=== PATIENT | female | born 1990 | race Caucasian/White ===

== ENCOUNTER 2017-08-11 17:02 | Emergency (ER) | payer MEDICAID, SELFPAY ==
[2017-08-11 17:02] VITALS: BP 149/86; PULSE 92; RESP 16; TEMP 37.4; O2SAT 98; BMI 36.7
--- NOTE | 2017-08-11 17:39 | US_ITS ---
STUDY: FIRST TRIMESTER OBSTETRICAL ULTRASOUND REASON FOR EXAM: Female, 27 years old. BLEEDING AT 7 WEEKS LMP: TECHNIQUE: Transvaginal PRIOR ULTRASOUND: None. FINDINGS: There is visualization of a single gestational sac in a normal intrauterine position. The mean sac diameter (MSD) measures 27mm , indicating an estimated gestational age (EGA) of 8 weeks, 0 days. The gestational sac shape is within normal limits. There is a visualized yolk sac. The yolk sac measures 3.7mm. The placenta is non-visualized. There is visualization of a live embryo. The crown-rump length (CRL) measures 9.2mm, indicating an estimated gestational age (EGA) of 7 weeks, 0 days. There is demonstrated cardiac activity with a heart rate of 136 bpm. The estimated gestation age (EGA) by LMP is 7 weeks, 0 days. The estimated date of delivery (LEIDY) by LMP is 10.2.18. The estimated gestation age (EGA) by US is 7 weeks, 4 days. The estimated date of delivery (LEIDY) by US is 9.28.18. The uterus measures 10.9x7x5.3. There is no demonstrated uterine fibroid. The cervix is closed. 7 x 4 mm cystic region in the uterus may be a myometrial cyst. The right ovary measures 4 x 3.1 x 2.3 cm. Corpus luteum cyst visualized measuring 26 x 21 mm. There is no visualized right adnexal mass or complex lesion. The left ovary measures 2.8 x 1.7 x 1.1. There is no left ovarian cyst. There is no visualized left adnexal mass or complex lesion. There is minimal fluid in the cul de sac. US/Transvaginal w/Preg US IMPRESSION: There is minimal fluid in the cul de sac. There is a single live intrauterine with a heart rate of 136 bpm. The estimated gestation age (EGA) by US is 7 weeks, 4 days. The estimated date of delivery (LEIDY) by US is 9.28.18. Electronically Signed: Dustin Siegel MD at 19:14 EST , Service support ,
--- NOTE | 2017-08-11 17:42 | ED.DCSUM_ITS ---
- ER Visit Summary Date of Service: 08/11/17 Chief Complaint: Vaginal bleeding and History of Present Illness: The patient is a 27 F presenting with vaginal bleeding. She states she is 7 weeks by dates. She is . She started having vaginal bleeding this afternoon. She states it has since slowed down. It was less than a normal period. Denies abdominal pain or other complaints. Physical Examination: Vitals are stable. Patient is afebrile. Alert no acute distress. HEENT exam is unremarkable. Neck is supple. Lungs are clear and equal bilaterally. Heart is regular rate and rhythm. Abdomen is soft nontender nondistended. Extremities are unremarkable. Skin is warm and dry. Remainder of exam is unremarkable. Emergency Department Course and Treatment: [place] [address]. Blood type A negative. She was given RhoGam IM. Ultrasound shows single live IUP 7 weeks 4 days with heart tones 136. She is resting comfortably in the emergency department. Advised to follow-up with Dr. Diaz her TRANSPORTATION SERVICES REPRESENTATIVE. Advised to return to ED for worsening complaints. Disposition: Discharge home Impression: Vaginal bleeding in This note was generated with [employer] dictation software. It may contain incorrect words, spelling, and punctuation that were not noted in review of the chart prior to signing ED Disposition - Plan for ED Patient: Chief Complaint: Vag Bld, Preg Referrals: Milton Collado MD [Primary Care Provider] -
[2017-08-11 19:46] VITALS: BP 143/78; PULSE 90; RESP 18; O2SAT 100
--- NOTE | 2017-08-11 19:52 | ED.DEP ---
ED Disposition - Plan for ED Patient: Chief Complaint: Vag Bld, Preg Instructions: ED Miscarriage Poss Referrals: Milton Collado MD [Primary Care Provider] - Trev Diaz MD [STAFF PHYSICIAN] -
--- NOTE | 2017-08-11 20:06 | ED.RN ---
Rhogam given documented in mar not tar. tar unable to scan product number
[2017-08-11 20:18] VITALS: PULSE 81; O2SAT 100
== END 2017-08-11 20:24 | disposition home or self-care (01) ==
PROVIDERS: Emergency Provider Emergency Medicine; Family Provider Family Medicine; PCP Family Medicine
DX: O20.9 Hemorrhage in early pregnancy, unspecified (principal); Z3A.01 Less than 8 weeks gestation of pregnancy
CPT/HCPCS: 76817; 84702; 86900; 86901; 90384; 96372; 99284; A4216; J2790

== ENCOUNTER → 2017-08-19 18:50 | Outpatient (CLI) | payer MEDICAID, SELFPAY ==
[2017-08-19 22:58] LABS: Chlamydia Trachomatis by PCR Negative (Negative); Neisserai gonorrhoeae by PCR Negative (Negative); Probe Check PASS; Sample Adequacy Control PASS; Specimen Processing Control PASS
[2017-08-24 13:58] LABS: HPV Reflexed? NOT INDICATED
== END ==
PROVIDERS: Family Provider Family Medicine; PCP Family Medicine; Visit Provider Obstetrics & Gynecology
DX: Z12.4 Encounter for screening for malignant neoplasm of cervix (principal); Z11.3 Encounter for screening for infections with a predominantly sexual mode of transmission; Z32.01 Encounter for pregnancy test, result positive
CPT/HCPCS: 87491; 87591; 88175; G0145

== ENCOUNTER → 2017-09-07 11:23 | Outpatient (CLI) | payer MEDICAID, SELFPAY ==
[2017-09-07 14:16] LABS: Color, Urine Yellow (Yellow); Glucose, Dipstick Normal (Normal); Ketone-Dipstick Negative (Negative); Leukocyte Esterase-Dipstick 25 /ul (Negative); Nitrite-Dipstick Negative (Negative); Occult Blood-Urine 25 /ul (Negative); Protein-Dipstick Negative (Negative); Urine Bilirubin Dipstick Negative (Negative); Urine Clarity Sl. Cloudy (Clear); Urine Urobilinogen Normal (Normal)
[2017-09-07 14:17] LABS: Absolute Lymphocyte Count 1.78 X10^3/ul (0.83-4.51); Absolute Neutrophil Count 4.4 X10^3/uL (2.0-7.7); Basophil# 0.03 X10^3/uL; Basophil% 0.5 % (0-1); Eosinophils% 1.5 % (0-5); Hematocrit 40.8 % (37-47); Lymphocyte # 1.78 X10^3/ul (4.0); Lymphocyte % 26.7 % (19-41); Mean Corp Hgb Conc 34.3 g/gl (32-36); Mean Corpuscular Hgb 31.7 pg (27.0-32.0); Mean Corpuscular Volume 92.3 fL (81-99); Monocyte# 0.32 X10^3/uL; Monocyte% 4.8 % (0-10); Neutrophil # 4.42 X10^3/uL (2.7-7.7); Neutrophil % 66.3 % (47-70); POSITIVE COUNT NO; POSITIVE DIFFERENTIAL NO; POSITIVE MORPHOLOGY NO; Platelet Count 269 K/mm3 (150-450); RBC Distribution Width CV 12.1 % (11.6-14.6); RBC Distribution Width SD 41.2 fl (35.1-43.9); Red Blood Count 4.42 M/mm3 (4.2-5.4); White Blood Count 6.7 K/mm3 (4.4-11.0)
[2017-09-07 14:32] LABS: COTININE Drug Screen Negative (<200 ng/mL); Thyroid Stim Hormone (TSH) 1.17 uIU/mL (0.358-3.74)
[2017-09-07 14:37] LABS: Amphetamine Urine VISTA NEGATIVE (<1000 ng/mL); Barbiturate Urine VISTA NEGATIVE (< 200 ng/mL); Benzodiazepine Urine VISTA NEGATIVE (< 200 ng/mL); Cocaine Urine VISTA NEGATIVE (< 300 ng/mL); Ecstacy Urine VISTA NEGATIVE (< 500 ng/mL); Methadone Urine VISTA NEGATIVE (< 300 ng/mL); PCP Urine VISTA NEGATIVE (< 25 ng/mL); THC Urine VISTA NEGATIVE (< 50 ng/mL); Vista UDS pH Range 6
[2017-09-07 15:15] LABS: HIV - WCH Non-Reactive (Nonreactive); Rubella IgG > 500.0 IU/mL
[2017-09-09 11:22] LABS: HEPATITIS B SURFACE AG Negative (Negative); Hep C Antibodies <0.1 s/co ratio (0.0-0.9); Toxoplasma Gondii IgG < 3.0 IU/mL (0.0-7.1)
[2017-09-09 11:27] LABS: Toxoplasma Gondii IgM < 3.0 AU/mL (0.0-7.9)
[2017-09-11 02:58] LABS: Prenatal RPR NONREACTIVE (NONREACTIVE)
== END ==
PROVIDERS: Visit Provider Obstetrics & Gynecology
DX: Z34.81 Encounter for supervision of other normal pregnancy, first trimester (principal)
CPT/HCPCS: 36415; 80307; 81002; 84443; 85025; 86703; 86762; 86777; 86778; 86803; 86850; 87340

== ENCOUNTER → 2017-10-20 09:54 | Outpatient (CLI) | payer MEDICAID, SELFPAY | PROVIDERS: Family Provider Family Medicine; PCP Family Medicine; Visit Provider Obstetrics & Gynecology | DX: O99.412 Diseases of the circulatory system complicating pregnancy, second trimester (principal); I49.9 Cardiac arrhythmia, unspecified; R00.0 Tachycardia, unspecified; O99.89 Other specified diseases and conditions complicating pregnancy, childbirth and the puerperium; R42 Dizziness and giddiness; Z3A.00 Weeks of gestation of pregnancy not specified | CPT/HCPCS: 93225; 93226 ==

== ENCOUNTER 2017-11-03 03:19 | Outpatient (CLI) | payer MEDICAID, SELFPAY ==
[2017-11-03 03:47] LABS: ROM Internal Control Test YES-OK TO RESULT pt. (Internal QC)
[2017-11-03 03:48] LABS: ROM Patient Test POSITIVE (Negative)
[2017-11-03 04:06] VITALS: BMI 37.8
--- NOTE | 2017-11-03 04:31 | OB.TRI.HP_ITS ---
History of Present Illness Date of Service: 11/03/17 Was patient seen by the physician?: Yes Reason For Visit: R/O LABOR Date of Service: 11/03/17 Final LEIDY: 03/30/18 Final LEIDY Source: US <20 weeks Gestational age: 19 Weeks and 0 Days History of Present Illness: 27 yo female at 19 wk EGA presents with gush of fluid in night time, and then voided. She had to get up again due to wet spot in bed, sheets soaked. Here for evaluation of possible SROM. Reports bleeding and spotting off and on since first trimester. Rh Neg and RhoGAM given approx 10/20/17 in ofc. Denies any s/sx of illness, but notes feeling dizzy off and on. Also with some nasal congestion last night. No abdominal pain. Lottie with prior term delivery. Home Medications Medication Instructions Recorded Vits [Prenatabs FA ] 1 tablet PO DAILY #30 tablet 06/16/15 Allergies No Known Allergies Allergy (Verified 11/03/17 04:08) Physical Exam General: Alert, Oriented x3, Cooperative - tearful Abdomen: Soft, Gravid - NT. Bedside SONO: Viable IUP, active FM. Largest pocket of fluid 6.4 cm Breech. Extremities:: No clubbing, No cyanosis, No edema Presentation: Breech - no cervical exam performed. NST - FHR Rate Baby A Baseline: FHT 140s NST Reactive:: Appropriate for gestational age Impression/Plan 19 wk SPPROM + ROM by ROM plus test. Grossly ruptured on exam, pink tinged fluid noted. MARIANA largest pocket 6.4 cm Active, viable fetus Reviewed findings with patient and significant other. Extremely poor prognosis d /t ROM at 19 wks. Previable fetus without lung development and size needed for survival. All questions (at this time) answered to couple's satisfaction. Some fluid noted on sono. Advised pt: bedrest, pelvic rest. F/U sono in ofc. Refer to M for second opinion, evaluation. Consider antibiotics to extend latency / prevent infection d/t SROM. No betamethasone at this point as previable and may steroids given may increase risk of infection Advised of potential outcomes, including: demise, uterine infection leading to labor. Advised also that fluid may reaccumulate if bag of valdovinos able to seal itself off to allow reaccumulation of fluid which would then allow for lung development and movement of fetus. CBC Home to rest RTO for OB sono and f/u on MARIANA. MFM appt TBA through ofc.
[2017-11-03 05:14] LABS: Absolute Lymphocyte Count 2.03 X10^3/ul (0.83-4.51); Absolute Neutrophil Count 6.6 X10^3/uL (2.0-7.7); Basophil# 0.02 X10^3/uL; Basophil% 0.2 % (0-1); Eosinophil# 0.14 X10^3/uL; Eosinophils% 1.5 % (0-5); Hematocrit 36.9 % (37-47); Hemoglobin 13.1 g/dl (12.0-15.0); Lymphocyte # 2.03 X10^3/ul (4.0); Lymphocyte % 21.5 % (19-41); Mean Corp Hgb Conc 35.5 g/gl (32-36); Mean Corpuscular Hgb 32.4 pg (27.0-32.0); Mean Corpuscular Volume 91.3 fL (81-99); Mean Platelet Vol. 10.3 fl (6.2-12.0); Monocyte# 0.59 X10^3/uL; Monocyte% 6.3 % (0-10); Neutrophil # 6.63 X10^3/uL (2.7-7.7); Neutrophil % 70.3 % (47-70); Platelet Count 240 K/mm3 (150-450); RBC Distribution Width CV 12.4 % (11.6-14.6); RBC Distribution Width SD 40.9 fl (35.1-43.9); Red Blood Count 4.04 M/mm3 (4.2-5.4); White Blood Count 9.4 K/mm3 (4.4-11.0)
[2017-11-03 05:23] LABS: POSITIVE COUNT NO; POSITIVE DIFFERENTIAL NO; POSITIVE MORPHOLOGY NO
== END 2017-11-03 04:48 | disposition home or self-care (01) ==
LOC: WPOUT 03:20 → WP 03:20
PROVIDERS: Family Provider Family Medicine; PCP Family Medicine; Visit Provider Obstetrics & Gynecology
DX: O42.912 Preterm premature rupture of membranes, unspecified as to length of time between rupture and onset of labor, second trimester (principal); Z3A.19 19 weeks gestation of pregnancy
CPT/HCPCS: 36415; 59050; 76815; 84112; 85025; 99218; G0378

== ENCOUNTER 2021-04-11 09:50 | Emergency (ER) | payer MEDICAID, SELFPAY ==
[2021-04-11 09:51] VITALS: BP 162/85; PULSE 84; RESP 14; TEMP 37.2; O2SAT 100; BMI 43.8
--- NOTE | 2021-04-11 10:06 | EDS_ITS ---
HPI History of Present Illness Chief Complaint: Allergic Reaction Narrative Narrative: Patient presents complaining of allergic reaction is started last night after she had been exposed to some insects that had bit her skin it started with hives she went to sleep she woke up today and felt that her face was swollen she called EMS they arrived she was given subcu epinephrine brought to the emergency department indications had no breathing problems no fever no cough no chest pain no other exposures no new medications she is feeling at baseline now PFSH PFS Medical History no medical history Home Medications minocycline 100 mg PO DAILY 04/11/21 [History Last Taken Unknown] spironolactone 100 mg PO DAILY 04/11/21 [History Last Taken Unknown] Allergy/AdvReac Type Severity Reaction Status Date / Time No Known Allergies Allergy Verified 04/11/21 09:59 Surgical History no surgical history Social History Smoking Status: Never smoker ROS ROS ED ROS Narrative Again she complained of some sense that her face was swollen no breathing issues review of systems otherwise negative no systemic findings or signs Constitutional Constitutional ED: Reports subjective, sweats and other; Denies chills, fever(s) or weight loss Eyes Eyes: Denies blurry vision or change in vision ENT ENT ED: Denies ear pain Cardiovascular Cardiovascular: Denies chest pain or palpitations Respiratory/Chest Respiratory/Chest: Denies dyspnea Gastrointestinal Gastrointestinal: Denies abdominal pain, nausea or vomiting Genitourinary Genitourinary ED: Denies dysuria or hematuria Musculoskeletal Musculoskeletal: Denies arthralgias or myalgias Integumentary Reports rash; Denies abscess Neurologic Neurologic: Denies weakness Psychiatric Psychiatric: Denies anxiety or depression Endocrine Endocrinology: Denies polydipsia or polyuria Allergic/Immunologic Allergic/Immunologic ED: Denies urticaria EXAM Physical Exam Const Vital Signs: 04/11/21 09:51 Temperature 98.9 F Temperature Source Oral Pulse Rate 84 Respiratory Rate 14 Blood Pressure 162/85 H Blood Pressure Mean 110 Pulse Ox 100 Oxygen Delivery Method Room Air Positive well developed General Appearance ED: well developed HEENT Reports normocephalic Negative for trauma Eyes EOMs intact bilaterally Neck supple Chest Wall inspection of chest normal Resp normal respiratory effort Cardio regular rate GI non-tender and non-distended Back/Spine Back/Spine Narrative: unremarkable Extremity normal to inspection Neuro oriented x3 and CN's II-XII intact bilaterally Sensorium / Orientation: alert Psych mental status grossly normal Skin no rashes or lesions noted MDM MDM MDM Narrative Medical decision making narrative: Patient's vital signs are unremarkable resting company bed HEENT no nose mucous membranes lungs clear some very minimal scattered hives to the back the skin is otherwise unremarkable given all the above given the therapy she has had her improvement will observe her in the emergency department she will be treated with IV Decadron and she has an IV s hould be given Kenalog 40 mg IM is a long-acting steroid she has been given multiple doses of Benadryl she will continue to use antihistamines every 6 hours follow-up with outpatient providers return for change in symptoms Patient is remained asymptomatic during the observation. She is comfortable with discharge home Discharge Plan Triage Chief Complaint: Allergic Reaction ED Provider: Jos eLuis Perez Dx/Rx/DC Orders Clinical Impression: Allergic Instructions: ED General Allergic Reactions Prescriptions: No Action minocycline 100 mg capsule 100 mg PO DAILY RF: 0 spironolactone 100 mg tablet 100 mg PO DAILY RF: 0 Primary Care Provider: Milton Collado Referrals: Milton Collado MD [Primary Care Provider] - Activity Restrictions/Additional Instructions: Follow-up with your doctors return for change in symptoms take an antihistamine every 6 hours
[2021-04-11] MEDS: dexAMETHasone 10 MG/ML Vial IV (10:28)
[2021-04-11] MEDS: Triamcinolone Acetonide 40 MG/ML Vial IM (10:28)
[2021-04-11 11:28] VITALS: BP 134/81; PULSE 85; RESP 16; O2SAT 100
== END 2021-04-11 11:29 | disposition home or self-care (01) ==
PROVIDERS: Emergency Provider Emergency Medicine; PCP Family Medicine
DX: T78.40XA Allergy, unspecified, initial encounter (principal); Z79.899 Other long term (current) drug therapy
CPT/HCPCS: 96372; 96374; 99284; J7030; A4216

== ENCOUNTER 2021-04-12 17:49 | Emergency (ER) | payer MEDICAID, SELFPAY ==
[2021-04-12 17:50] VITALS: BP 144/92; PULSE 101; RESP 16; TEMP 36.6; O2SAT 99
[2021-04-12 17:51] VITALS: BP 144/92; PULSE 101; RESP 18; TEMP 36.6; O2SAT 99; BMI 42.9
--- NOTE | 2021-04-12 18:17 | EDS_ITS ---
HPI History of Present Illness Chief Complaint: Allergic Reaction Detail of Chief Complaint: Allergic reaction Informant: patient Narrative Narrative: Patient presents to the emergency department with concern for an allergic reaction to medications that she started 3 weeks ago. Patient was started on minocycline and spironolactone for acne. Patient states that 3 days ago she started having an itchy rash with lip swelling. Patient presented to the emergency department via EMS yesterday and was medicated with steroids and Benadryl and did receive epinephrine in route to the hospital by squad. Patient states that she was told that the physician in the ER did not believe the reaction was related to the antibiotic that she has started recently because it had been 3 weeks. Patient started taking the spironolactone and the antibiotic again today and about an hour later developed worsening itchy rash and lip swelling. Patient denies any new soaps or detergents. She is never had issues like this before. Patient denies recent illness. Prior similar symptoms: No PFSH PFS Medical History (Updated 04/12/21 @ 20:[address] Sascha Damon, ) delivery delivered Home Medications minocycline 100 mg PO DAILY 04/11/21 [History Last Taken Unknown] spironolactone 100 mg PO DAILY 04/11/21 [History Last Taken Unknown] prednisone 20 mg PO BID #6 tab 04/12/21 [Rx Last Taken Unknown] Allergy/AdvReac Type Severity Reaction Status Date / Time No Known Allergies Allergy Verified 04/12/21 18:40 Social History Smoking Status: Never smoker [facility] ED Constitutional Constitutional ED: Reports systems reviewed and no addt'l complaints, except as documented; Denies body ache(s), change in weight or chills Eyes Eyes: Denies acute decrease in peripheral vision, change in vision, double vision or loss of vision ENT ENT ED: Reports none; Denies ear pain, lip swelling, loss taste/smell, neck pain, otalgia or sore throat Cardiovascular Cardiovascular: Reports none; Denies abdominal pain, chest pain with activity, leg edema, lightheadedness, palpitations, rapid heart rate or syncope Respiratory/Chest Respiratory/Chest: Reports none; Denies change in mental status, dry cough, dyspnea, hemoptysis, shortness of breath at rest or shortness of breath with exertion Gastrointestinal Gastrointestinal: Reports none; Denies abdominal pain, change in stool character, diarrhea, hematemesis, hematochezia, melena, rectal bleeding or vomiting Genitourinary Genitourinary ED: Reports none; Denies abdominal discomfort, anuria, dysuria, genital pain or polyuria Musculoskeletal Musculoskeletal: Reports none; Denies arthralgias, back pain, difficulty walking, extremity pain, muscle weakness or myalgias Integumentary Reports none and rash; Denies abscess Neurologic Neurologic: Reports none; Denies abnormal gait, confusion, focal weakness, frequent falls, headache(s), loss of vision, numbness, paresthesias, radicular pain, vertigo or weakness Psychiatric Psychiatric: Reports systems reviewed and no addt'l complaints, except as documented and none; Denies behavioral changes, confusion, difficulty concentrating, hallucinations, suicidal ideation, tactile hallucinations or visual hallucinations Endocrine Endocrinology: Denies none, cold intolerance, excessive sweating, fatigue or heat intolerance Hematologic/Lymphatic Hematologic/Lymphatic: Reports none; Denies anemia, easy bleeding or easy bruising Allergic/Immunologic Allergic/Immunologic ED: Denies as per HPI, none, lip swelling, mouth swelling, throat swelling, tongue swelling or hives EXAM Physical Exam Const Vital Signs: 04/12/21 17:50 04/12/21 17:51 04/12/21 19:03 Temperature 97.9 F 97.9 F Temperature Source Temporal Temporal Pulse Rate 101 H 101 H 90 Respiratory Rate 16 18 14 Blood Pressure 144/92 H 144/92 H Blood Pressure Mean 109 109 Pulse Ox 99 99 99 Oxygen Delivery Method Room Air Room Air Room Air 04/12/21 20:09 Temperature Temperature Source Pulse Rate 75 Respiratory Rate 15 Blood Pressure Blood Pressure Mean Pulse Ox 98 Oxygen Delivery Method Room Air Positive well nourished and well developed General Appearance ED: well developed and NAD HEENT Reports TM's clear and moist mucous membranes HEENT Narrative: No angioedema of the tongue or lips noted. normocephalic and atraumatic; Negative for trauma or tenderness Tympanic Membrane ED: Yes TM's clear Eyes PERRL and EOMs intact bilaterally General Eye ED: Negative for pale conjunctiva or scleral icterus Neck no lymphadenopathy, supple and no JVD General: Negative for tenderness Chest Wall inspection of chest normal and palpation of chest normal Chest: Negative for tenderness Resp normal respiratory effort and clear to auscultation bilaterally Effort and Inspection: Negative for respiratory distress or pain with movement Auscultation: Negative for rhonchi, wheezes or diminished lung sounds Cardio regular rate, regular rhythm, S1 normal heart sound, S2 normal heart sound and no murmurs Peripheral Pulses: pulses 2+ throughout GI normal to inspection, nondistended, normoactive bowel sounds, soft to palpation, non-tender, non-distended and no masses Back/Spine no CVA tenderness and no thoracic nor lumbar tenderness Extremity normal to inspection General Extremety ED: Negative for edema General Extremity: Negative for edema Neuro oriented x3, CN's II-XII intact bilaterally, no sensory deficits noted and gait normal Sensorium / Orientation: awake, alert, oriented to person, oriented to place and oriented to time Motor Exam: strength 5/5 throughout and strength abnormal Psych mental status grossly normal Skin no wounds Skin Narrative: Patient has diffuse urticaria involving the trunk as well as the extremities and the face and right lower lip. MDM MDM MDM Narrative Medical decision making narrative: IV line established on arrival. Patient was medicated with Solu-Medrol, Benadryl, and Pepcid. Patient was observed in the department for almost 3 hours and she had improvement in the urticaria. She had no angioedema. She feels well otherwise. Patient will be given a prescription for prednisone for 3 more days. At this point she will be advised to discontinue the minocycline and the spironolactone. Patient follow-up with her electronic parts designer. She is advised to return if worsening lip or tongue swelling, shortness of breath, or condition should worsen anyway. Lab Data Attestation: I reviewed the patient's lab results. Discharge Plan Triage Chief Complaint: Allergic Reaction ED Provider: Sascha Damon Dx/Rx/DC Orders Clinical Impression: Urticaria, Allergic reaction Instructions: ED ADVERSE DRUG REACTION Allergic, ED Hives (Adult) Prescriptions: New prednisone 20 mg tablet 20 mg PO BID Qty: 6 RF: 0 No Action minocycline 100 mg capsule 100 mg PO DAILY RF: 0 spironolactone 100 mg tablet 100 mg PO DAILY RF: 0 Primary Care Provider: Milton Collado Referrals: Milton Collado MD [Primary Care Provider] - Activity Restrictions/Additional Instructions: Discontinue your minocycline as well as spironolactone and follow-up with your electronic parts designer Disposition Disposition: Home, Self Care
[2021-04-12] MEDS: MethylPREDNISolone 125 MG/2 ML Vial IV (18:39)
[2021-04-12] MEDS: DiphenhydrAMINE 50 MG/ML Syringe IV (18:39)
[2021-04-12 19:03] VITALS: PULSE 90; RESP 14; O2SAT 99
[2021-04-12] MEDS: Famotidine 200 MG/20 ML MDV 20 MG in 0.9% Normal Saline (Pres. free 8 ML 300 MG IV (19:05)
[2021-04-12 20:09] VITALS: PULSE 75; RESP 15; O2SAT 98
== END 2021-04-12 21:18 | disposition home or self-care (01) ==
PROVIDERS: Emergency Provider Emergency Medicine; PCP Family Medicine
DX: L50.0 Allergic urticaria (principal); Z79.52 Long term (current) use of systemic steroids
CPT/HCPCS: 96374; 96375; 99285; A4216; J3490

== ENCOUNTER → 2023-02-27 | Outpatient (CLI) | payer MEDICAID, SELFPAY ==
[2023-02-27 15:06] LABS: Hematocrit 43.4 % (37-47); Mean Corp Hgb Conc 34.6 g/dL (32-36); Mean Corpuscular Hgb 31.9 pg (27.0-32.0); Mean Corpuscular Volume 92.3 fL (81-99); Mean Platelet Vol. 10.3 fl (6.2-12.0); Platelet Count 310 K/mm3 (150-450); RBC Distribution Width CV 11.3 % (11.6-14.6); RBC Distribution Width SD 38.7 fl (35.1-43.9); White Blood Count 7.7 K/mm3 (4.4-11.0)
[2023-02-27 15:56] LABS: AST(SGOT) 17 U/L (15-37); Alanine Aminotransfer ALT/SGPT 24 U/L (13-56); Albumin, Serum 3.7 g/dL (3.2-5.0); Alkaline Phosphatase 78 U/L (45-117); Anion Gap 8 (5-15); BUN 16 mg/dL (7-18); BUN/Creat Ratio 14.2 RATIO (10-20); Calcium,Total 8.9 mg/dL (8.5-10.1); Chloride 105 mmol/L (98-107); Creatinine, Serum 1.13 mg/dL (0.55-1.02); EST Glomerular Filtration Rate 59 mL/min (>60); Est Glom Filt Rate - Afr Amer 71 mL/min (>60); Globulin 3.7 g/dL (2.2-4.2); Glucose 101 mg/dL (74-106); Potassium 4.1 mmol/L (3.5-5.1); Protein, Total 7.4 g/dL (6.4-8.2); Sodium Level 136 mmol/L (136-145); Thyroid Stim Hormone (TSH) 1.32 uIU/mL (0.358-3.74)
[2023-03-03 16:33] LABS: Vitamin B12 243 pg/mL (211-911)
[2023-03-09 14:08] LABS: Vitamin B1, Thiamine 111.8 nmol/L (66.5-200.0)
== END | disposition home or self-care (01) ==
PROVIDERS: PCP Family Medicine; Referring Provider Psychiatry & Neurology Neurology; Visit Provider Psychiatry & Neurology Neurology
DX: G62.9 Polyneuropathy, unspecified (principal)
CPT/HCPCS: 36415; 80053; 82607; 82746; 83883; 84425; 84443; 85027

== ENCOUNTER → 2023-03-12 | Outpatient (CLI) | payer MEDICAID, SELFPAY | END | disposition home or self-care (01) | LOC: SL 13:09 | PROVIDERS: PCP Family Medicine; Referring Provider Psychiatry & Neurology Neurology; Visit Provider Psychiatry & Neurology Neurology | DX: G47.10 Hypersomnia, unspecified (principal) | CPT/HCPCS: 95801; 95806 ==

== ENCOUNTER → 2023-03-27 | Outpatient (CLI) | payer MEDICAID, SELFPAY ==
--- NOTE | 2023-03-27 11:33 | MRI_ITS ---
STUDY: MRI BRAIN WITH AND WITHOUT CONTRAST REASON FOR EXAM: Female, 32 years old. Hx pseudotumor cerebri; headaches; blurred vision TECHNIQUE: Standardized multiplanar fat and water weighted pulse sequences were obtained. IV Yes YES was administered for the contrast portion of the examination. COMPARISON: None. FINDINGS: Normal size of the ventricles and extra-axial spaces for the patient''s age. Solitary white matter lesion in the right parietal lobe without mass effect or restricted diffusion. Normal bilateral basal ganglia. Normal thalami. There is no extra-axial fluid accumulation. Normal flow voids within the major intracranial circulation suggesting patency by spin echo criteria. Normal venous enhancement. There is no enhancing intra-axial or extra-axial abnormality. Mild partial empty sella deformity. Normal, infundibular stalk, optic chiasm and hypothalamus. Normal tectal plate and pineal gland. Normal midbrain, elvia and medulla. Normal cerebellum. Normal basal cisterns. Normal bilateral temporal bones. Normal bilateral internal auditory canals. No demonstrated orbital abnormality, within the constraints of a routine brain study. Mild mucosal thickening of the ethmoid, and maxillary sinuses bilaterally as well as the right sphenoid sinus. Normal calvarium and skull base. Normal visualized soft tissue structures. Normal visualized upper cervical spine. MRI/Brain W/WO Contrast IMPRESSION: Solitary white matter lesion in the right parietal lobe of indeterminate etiology or clinical significance in patient of this age. No significant white matter disease or evidence for acute infarct. Mild partial empty sella deformity of uncertain clinical significance. Other typical findings for pseudotumor cerebri including dilatation of the optic nerve root sheath and flattening of the posterior optic globes are not visualized at this time. Mild bilateral maxillary ethmoid and right sphenoid sinus disease Electronically Signed: Aubrey Clayton MD at 18:12 EDT ,
[2023-03-27 12:03] LABS: CREATININE FINGERSTICK 1.2 mg/dL (0.55-1.02)
== END | disposition home or self-care (01) ==
LOC: MRI 11:14
PROVIDERS: PCP Family Medicine; Referring Provider Psychiatry & Neurology Neurology; Visit Provider Psychiatry & Neurology Neurology
DX: G93.2 Benign intracranial hypertension (principal); H53.8 Other visual disturbances; R51.9 Headache, unspecified
CPT/HCPCS: 70553; A9575

== ENCOUNTER → 2023-06-26 | Outpatient (CLI) | payer MEDICAID, SELFPAY ==
--- OUTSIDE RECORDS SUMMARY | 2023-06-26 12:06 | XMS RPT_ITS | CCD ---
Author Name Unknown Address [address] [place] [address] Organization [facility] Care Team Providers Care Real Time Operator Name Role Phone TRICE KAPOOR Unavailable Unavailable LARISSA, [place]OEN[place] Unavailable Unavailable GENA SMART Unavailable UnaHA Mercado Unavailable Unavailable NO PRIMARY CARE, MD Unavailable Unavailable HA WESTBROOK Unavailable Unavailable JC, MIGNON T Unavailable Unavailable NO PRIMARY CARE, MD Unavailable Unavailable JIMENA, MIGNON L Unavailable Unavailable JIMENA, MIGNON L Unavailable Unavailable NO PRIMARY CARE, MD Unavailable Unavailable JIMENA, MIGNON L Unavailable Unavailable JC, MIGNON T Unavailable Unavailable NO PRIMARY CARE, MD Unavailable Unavailable JC, MIGNON T Unavailable Unavailable JC, MIGNON T Unavailable Unavailable NO PRIMARY CARE, MD Unavailable Unavailable MONIQUE CM Unavailable Unavailable JENNIE, SARITHA Unavailable Unavailable NO PRIMARY CARE, MD Unavailable Unavailable JIMENA, MIGNON L Unavailable Unavailable JIMENA, MIGNON L Unavailable Unavailable NO PRIMARY CARE, MD Unavailable Unavailable JIMENA, MIGNON L Unavailable Unavailable NIURKA BAEZA Unavailable Unavailable NO PRIMARY CARE, Unavailable Unavailable VANNSEA JANEY Unavailable Unavailable JC, MIGNON T Unavailable Unavailable NO PRIMARY CARE, MD Unavailable Unavailable VANNESA JANEY Unavailable Unavailable JC, MIGNON T Unavailable Unavailable NO PRIMARY CARE, MD Unavailable Unavailable JC, MIGNON T Unavailable Unavailable JENNIE, SARITHA Unavailable Unavailable NO PRIMARY CARE, MD Unavailable Unavailable JENNIE, SARITHA Unavailable Unavailable JENNIE, SARITHA Unavailable Unavailable NO PRIMARY CARE, MD Unavailable Unavailable MING BENNETT Unavailable Unavailable NIURKA BAEZA Unavailable Unavailable NO PRIMARY CARE, Unavailable Unavailable JIMENA, MIGNON L Unavailable Unavailable NIURKA BAEZA Unavailable Unavailable NO PRIMARY CARE, Unavailable Unavailable Unavailable Primary Care Provider Unavailabl e Unavailable Primary Care Provider Unavailabl e Kevlla DO, Wilfredo F Primary Care Provider [phone] Petrilla, Wilfredo Primary Care Unavailable Petrilla, Wilfredo Attending Unavailable PROVIDER, UNKNOWN Referring Unavailable PROVIDER, UNKNOWN Referring Unavailable Nelson Brown Attending Unavailable Phoenix Collado Primary Care Unavailable Mignon Morales Attending Unavailable Phoenix Collado Primary Care Unavailable PROVIDER, UNKNOWN Referring Unavailable PROVIDER, UNKNOWN Referring Unavailable Nelson Brown Attending Unavailable Larissa Phoenix Primary Care Unavailable Kevlla DO, Wilfredo F Primary Care Provider Petrilla DO, Wilfredo F Primary Care Provider Petrilla DO, Wilfredo F Primary Care Provider [phone] HOLDENA, WILFREDO Attending Unavailable PETRILLA, WILFREDO Referring Unavailable PETRILLA, WILFREDO Attending Unavailable PETRILLA, WILFREDO Primary Care Unavailable PETRILLA, WILFREDO Attending Unavailable PETRILLA, WILFREDO Referring Unavailable PETRILLA, WILFREDO Primary Care Unavailable PETRILLA, WILFREDO Referring Unavailable PETRILLA, WILFREDO Attending Unavailable PETRILLA, WILFREDO Referring Unavailable PETRILLA, WILFREDO Primary Care Unavailable PETRILLA, WILFREDO Attending Unavailable PETRILLA, WILFREDO Attending Unavailable PETRILLA, WILFREDO Referring Unavailable PETRILLA, WILFREDO Primary Care Unavailable PETRILLA, WILFREDO Attending Unavailable PETRILLA, WILFREDO Referring Unavailable PETRILLA, WILFREDO Primary Care Unavailable PETRILLA, WILFREDO Referring Unavailable PETRILLA, WILFREDO Primary Care Unavailable PETRILLA, WILFREDO Attending Unavailable PETRILLA, WILFREDO Attending Unavailable PETRILLA, WILFREDO Primary Care Unavailable Allergies Allergy Classification Reported Allergen(s) Allergy Type Date of Onset Reaction(s) Facility (17 sources) Minocycline Drug Allergy 05-31-2021 [facility] (17 sources) nickel sulfate Drug Allergy 05-31-2021 [facility] Work Phone: Medications Current Medications Medication Drug Class(es) Dates Sig (Normalized) Sig (Original) adapalene 0.003 mg/mg topical gel (3 sources) Retinoid Start: 01-26-2023 adapalene (Differin) 0.3 % gel [id number] 200 actuat albuterol 0.09 mg/actuat metered dose inhaler (13 sources) beta2-Adrenergic Agonist Start: 04-08-2023 take 2 puff(s) by inhalation every six hours for wheezing albuterol 108 (90 Base) MCG/ACT inhaler inhale 2 puffs every 6 hours if needed for shortness of breath or wheezing 8.5 g 2 04/08/2023 Active Completed/Discontinued Medications Medication Drug Class(es) Dates Sig (Normalized) Sig (Original) Collagen (1 source) End: 08-09-2020 COLLAGEN PO Take by mouth 0 08/09/2020 Discontinued (LIST CLEANUP) docusate sodium 100 mg oral capsule (6 sources) Start: 06-03-2021 End: 07-10-2021 docusate sodium (COLACE) 100 MG capsule Take 1 capsule by mouth 2 times daily as needed for Constipation Take 2 times a day as long as you are taking pain medicine or needed for constipation 30 capsule 0 06/03/2021 07/10/2021 Discontinued Problems Active Problems Problem Classification Problem Date Documented Da te Episodic/Chronic Anxiety disorders (1 source) Anxiety; Translations: [Anxiety disorder, unspecified] 01-15-2023 Chronic Asthma (16 sources) Mild intermittent asthma; Translations: [Mild intermittent asthma, uncomplicated] Onset: 06-29-2007 03-21-2022 Chronic Diseases of mouth; excluding dental (1 source) Painful mouth; Translations: [Other lesions of oral mucosa] Episodic Essential hypertension (6 sources) Essential hypertension; Translations: [Essential (primary) hypertension] Onset: 06-29-2021 02-06-2023 Chronic Other nervous system disorders (12 sources) Benign intracranial hypertension; Translations: [Benign intracranial hypertension] Onset: 06-29-2017 03-21-2022 Chronic Other nervous system disorders (4 sources) Neuropathy; Translations: [Hereditary and idiopathic neuropathy, unspecified] Onset: 02-06-2023 02-06-2023 Chronic Other nervous system disorders (2 sources) Hereditary and idiopathic neuropathy, unspecified; Translations: [Hereditary and idiopathic neuropathy, unspecified] Onset: 02-06-2023 Chronic Other nervous system disorders (3 sources) Paresthesia of upper limb; Translations: [Paresthesia of skin] Episodic Other non-traumatic joint disorders (1 source) Shoulder pain; Translations: [Acute pain of right shoulder] Episodic Other nutritional; endocrine; and metabolic disorders (2 sources) Morbid (severe) obesity due to excess calories; Translations: [Morbid (severe) obesity due to excess calories] Onset: 06-03-2021 Chronic Other nutritional; endocrine; and metabolic disorders (2 sources) Body mass index (BMI) 40.0-44.9, adult; Translations: [Body mass index [BMI] 40.0-44.9, adult] Onset: 06-03-2021 Chronic Other upper respiratory disease (12 sources) Chronic laryngotracheitis; Translations: [Chronic laryngotracheitis] Onset: 03-21-2022 03-21-2022 Chronic Other upper respiratory disease (2 sources) Chronic laryngotracheitis; Translations: [Chronic laryngotracheitis] Onset: 04-12-2022 Chronic Other upper respiratory disease (1 source) Pain in throat; Translations: [Pain in throat] Episodic Substance-related disorders (2 sources) Nicotine dependence, unspecified, uncomplicated; Translations: [Nicotine dependence, unspecified, uncomplicated] Onset: 06-03-2021 Chronic Unclassified (2 sources) Cough, unspecified; Translations: [Cough, unspecified] Onset: 03-21-2022 Past or Other Problems Problem Classification Problem Date Documented Da te Episodic/Chronic Allergic reactions (4 sources) Allergy status to other antibiotic agents status; Translations: [Other nonmedicinal substance allergy status] Onset: 06-03-2021 Episodic Cardiac dysrhythmias (12 sources) Palpitations; Translations: [Palpitations] Onset: 11-16-2017 Resolved: 01-01-2018 01-01-2018 Episodic Hemorrhage during ; abruptio placenta; placenta previa (12 sources) Placenta previa; Translations: [Complete placenta previa NOS or without hemorrhage, second trimester] Onset: 12-14-2017 Resolved: 01-01-2018 01-01-2018 Episodic Other circulatory disease (12 sources) Labile systemic arterial hypertension; Translations: [Other specified symptoms and signs involving the circulatory and respiratory systems] Onset: 03-21-2022 Resolved: 02-06-2023 03-21-2022 Episodic Other complications of ; puerperium affecting management of mother (12 sources) delivery - delivered; Translations: [Encounter for delivery without indication] Onset: 12-30-2017 Resolved: 03-21-2022 01-01-2018 Episodic Other complications of (8 sources) Maternal obesity complicating , childbirth and the puerperium, antepartum; Translations: [Obesity complicating , unspecified trimester] Onset: 12-30-2017 Resolved: 01-01-2018 01-01-2018 Chronic Other complications of (12 sources) High risk ; Translations: [Supervision of other high risk pregnancies, unspecified trimester] Onset: 11-09-2017 Resolved: 01-01-2018 01-01-2018 Episodic Other complications of (4 sources) Maternal obesity complicating , childbirth and the puerperium, antepartum; Translations: [Obesity affecting ] Onset: 12-30-2017 Resolved: 01-01-2018 01-01-2018 Episodic Other complications of (20 sources) RhD negative; Translations: [Other specified related conditions, unspecified trimester] Onset: 12-30-2017 Resolved: 01-01-2018 01-01-2018 Episodic Other lower respiratory disease (13 sources) Cough; Translations: [Cough] Onset: 03-21-2022 Episodic Other nervous system disorders (2 sources) Paresthesia of skin; Translations: [Paresthesia of skin] Onset: 01-01-2023 Episodic Other nervous system disorders (2 sources) Hypoesthesia of skin; Translations: [Hypoesthesia of skin] Onset: 05-02-2022 Episodic Other non-traumatic joint disorders (7 sources) Instability of right shoulder joint; Translations: [Other instability, right shoulder] Onset: 05-14-2021 Resolved: 03-21-2022 Episodic Other non-traumatic joint disorders (2 sources) Pain in joints of right hand; Translations: [Pain in joints of right hand] Onset: 05-02-2022 Episodic Other non-traumatic joint disorders (2 sources) Pain in joints of left hand; Translations: [Pain in joints of left hand] Onset: 05-02-2022 Episodic Other non-traumatic joint disorders (2 sources) Pain in right hip; Translations: [Pain in right hip] Onset: 05-02-2022 Episodic Other non-traumatic joint disorders (2 sources) Pain in left hip; Translations: [Pain in left hip] Onset: 05-02-2022 Episodic Other nutritional; endocrine; and metabolic disorders (12 sources) Body mass index 30+ - obesity; Translations: [Obesity, unspecified] Onset: 01-01-2018 Resolved: 03-21-2022 01-01-2018 Chronic Other conditions (4 sources) Abnormal heart rate; Translations: [Abnormal heart rate] Onset: 12-04-2017 Resolved: 12-30-2017 12-30-2017 Episodic Other screening for suspected conditions (not mental disorders or infectious disease) (4 sources) Abnormal nerve conduction; Translations: [Abnormal response to nerve stimulation, unspecified] Onset: 01-01-2023 01-01-2023 Episodic Other skin disorders (2 sources) Acne, unspecified; Translations: [Acne, unspecified] Onset: 06-03-2021 Episodic Other skin disorders (11 sources) Acne; Translations: [Acne, unspecified] Onset: 05-02-2022 05-02-2022 Episodic Other skin disorders (2 sources) Disorder of the skin and subcutaneous tissue, unspecified; Translations: [Disorder of the skin and subcutaneous tissue, unspecified] Onset: 05-02-2022 Episodic Polyhydramnios and other problems of amniotic cavity (12 sources) premature rupture of membranes ; Translations: [ premature rupture of membranes, unspecified as to length of time between rupture and onset of labor, unspecified trimester] Resolved: 01-01-2018 01-01-2018 Episodic Residual codes; unclassified (11 sources) Family history of diabetes mellitus in first degree relative; Translations: [Family history of diabetes mellitus] Onset: 05-02-2022 05-02-2022 Episodic Spondylosis; intervertebral disc disorders; other back problems (4 sources) Lumbar radiculopathy; Translations: [Radiculopathy, lumbar region] Onset: 07-18-2022 Episodic Sprains and strains (8 sources) Glenoid labrum tear; Translations: [Superior glenoid labrum lesion of right shoulder, initial encounter] Onset: 05-14-2021 Resolved: 03-21-2022 06-03-2021 Episodic Umbilical cord complication (12 sources) Prolapse of cord; Translations: [Labor and delivery complicated by prolapse of cord, not applicable or unspecified] Onset: 12-30-2017 Resolved: 01-01-2018 01-01-2018 Episodic Unclassified (2 sources) Abnormal heart rate; Translations: [Abnormal heart rate] Onset: 12-04-2017 Resolved: 12-30-2017 12-30-2017 Unclassified (6 sources) Finding of heart rate; Translations: [Abnormal heart rate] Onset: 12-04-2017 Resolved: 12-30-2017 12-30-2017 Unclassified (2 sources) Cough, unspecified; Translations: [Cough, unspecified] Onset: 03-21-2022 Results Test Name Value Interpretation Reference Range Facil ity Vital Signs Date Time Vital Sign Value Performing Clinician Faci lity 02-06-2023 11:02-0400 Body height 175.3 cm Wilfredo Fischer [employer] Work Phone: [employer] 02-06-2023 11:02-0400 Body mass index (BMI) [Ratio] 43.86 kg/m2 Wilfredo Fischer DO Work Phone: [employer] 02-06-2023 11:02-0400 Body temperature 96.91 [degF] Wilfredo Fischer DO Work Phone: [employer] 02-06-2023 11:02-0400 Body weight 134.72 kg Wilfredo Fischer [employer] Work Phone: [employer] 02-06-2023 11:02-0400 Diastolic blood pressure 88 mm[Hg] Wilfredo Fischer DO Work Phone: [employer] 02-06-2023 11:02-0400 Heart rate 88 /min Wilfredo Fischer DO Work Phone: [employer] 02-06-2023 11:02-0400 SaO2% (BldA) [Mass fraction] 97 % Wilfredo Fischer [employer] Work Phone: [employer] 02-06-2023 11:02-0400 Systolic blood pressure 134 mm[Hg] Wilfredo Fischer [employer] Work Phone: [employer] 11-13-2020 14:06-0400 Body temperature 98.01 [degF] [employer] Phone: 11-13-2020 14:06-0400 Diastolic blood pressure 78 mm[Hg] [employer] Phone: 11-13-2020 14:06-0400 Heart rate 78 /min [employer] Work Phone: 11-13-2020 14:06-0400 Respiratory rate 18 /min [employer] Work Phone: 11-13-2020 14:06-0400 Systolic blood pressure 120 mm[Hg] [employer] Work Phone: 11-13-2020 11:54-0400 SaO2% (BldA) [Mass fraction] 97 % [employer] Work Phone: 11-13-2020 11:41-0400 Body height 175.3 cm [employer] Work Phone: 11-13-2020 11:41-0400 Body mass index (BMI) [Ratio] 31.9 kg/m2 [employer] Phone: 11-13-2020 11:41-0400 Body weight 97.98 kg [employer] Phone: 08-09-2020 14:12-0500 Body Temperature 98.01 [degF] Niurka Rivas [employer] Work Phone: 08-09-2020 14:12-0500 BP Diastolic 86 mm[Hg] Niurka Rivas [employer] Work Phone: 08-09-2020 14:12-0500 BP Systolic 154 mm[Hg] Niurka Rivas [employer] Work Phone: 08-09-2020 14:12-0500 Pulse (Heart Rate) 66 /min Niurka Rivas [employer] Work Phone: 08-09-2020 14:12-0500 Pulse Oximetry 100 % Niurka Rivas [employer] Work Phone: 08-09-2020 14:12-0500 Respiratory Rate 18 /min Niurka Rivas [employer] Work Phone: Encounters Encounter Date Encounter Type Care Provider Facility Start: 04-08-2023 Refill Wilfredo Viera Kev lla DO Work Phone: [facility] Start: 03-05-2023 Refill Wilfredo Viera Kev lla DO Work Phone: [facility] Start: 02-06-2023 End: 02-06-2023 ambulatory WILFREDO FISCHER [facility] Start: 02-06-2023 End: 02-06-2023 Office outpatient visit 25 minutes Wilfredo Fischer DO Work Phone: [facility] Procedures Date Procedure Procedure Detail Performing Clinician Start: 03-21-2022 Lipid 1996 panel - S fer or Plasma Wilfredo Fischer DO Work Phone: Start: 10-29-2020 Mri any jt upper ext remity w/contrast matrl Humphrey Amin MD Work Phone: Start: 10-29-2020 Arthrocentesis aspir &/inj major jt/bursa w/o us Humphrey Amin MD Work Phone: Start: 08-09-2020 Radex shoulder compl ete minimum 2 views Niurka Rivas Work Phone: Start: 08-19-2017 Microscopic observat ion [Identifier] in Cervix by Cyto stain Mignon Morales PA-C Work Phone: Plan of Treatment Date Care Activity Detail Author Start: 2049 RSV Immunization age d 60 or older (1 - 1-dose 60+ series) RSV Immunization aged 60 or older (1 - 1-dose 60+ series) [facility] Start: 2039 Zoster Vaccines (1 of 2) Zoster Vacc hiral (1 of 2) [facility] Start: 01-02-2028 DTaP/Tdap/Td vaccine (2 - Td) DTaP/Tdap/Td vaccine (2 - Td) [facility] Work Phone: Start: 01-02-2028 DTaP/Tdap/Td vaccine (3 - Td or Tdap) DTaP/Tdap/Td vaccine (3 - Td or Tdap) [facility] Start: 01-02-2028 DTaP/Tdap/Td vaccine (3 - Td) DTaP/Tdap/Td vaccine (3 - Td) [facility] Work Phone: Start: 01-02-2028 DTaP/Tdap/Td Vaccine s (3 - Td or Tdap) DTaP/Tdap/Td Vaccines (3 - Td or Tdap) [facility] Start: 03-21-2027 Lipid panel Lipid Panel [facility] Start: 08-01-2023 Diabetes mellitus screening Diabetes Screening [facility] Start: 03-21-2023 Depression Screen Depression Screen [facility] Start: 03-21-2023 Influenza vaccination Flu vaccine (# 1) [facility] Immunizations Immunization Date Immunization Notes Care Provider Fa sowmya 01-01-2018 tetanus toxoid, reduced diphtheria toxoid, and acellular pertussis vaccine, adsorbed Niurka Rivas [facility] Work Phone: 06-18-2015 influenza virus vaccine, unspecified formulation Wilfredo Fischer DO Work Phone: [facility] Work Phone: 06-18-2015 influenza, injectabl e, quadrivalent, contains preservative Wilfredo Angulolla DO Work Phone: [facility] 06-18-2015 influenza, seasonal, injectable, preservative free Wilfredo Angulolla DO Work Phone: [facility] 10-03-2013 tetanus toxoid, reduced diphtheria toxoid, and acellular pertussis vaccine, adsorbed Wilfredo Angulolla DO Work Phone: [facility] Work Phone: NEGATED: Highlighted row has not occurred!01-01-2018 measles, mumps and rubella virus vaccine Niurka Rivas [facility] Payers Date Payer Category Payer Medicaid [employer] [place] [id number] 2022-Present [phone] [address] [place] [address] Medicaid HMO [id number] 2016 Unknown [id number] 1989 Unknown [id number] 1989 Unknown [id number] 1989 Unknown [id number] 1989 Unknown [id number] Unknown Social History Date Type Detail Facility Start: 09-16-2016 End: 08-09-2020 Tobacco smoking status VAIS Light tobacco smoker [facility] Start: 08-09-2020 End: 03-21-2022 Tobacco use and exposure Never used [id number] Work Phone: Start: 08-09-2020 End: 11-13-2020 Alcohol intake Current non-drinker of alcohol (finding) [employer] Work Phone: Start: 12-05-2017 End: 03-21-2022 Tobacco Comment only smokes when she has a drink [employer] Work Phone: Start: 1990 Sex Assigned At Not on file [facility] Work Phone: Start: 06-10-2021 End: 02-06-2023 Exposure to SARS-CoV-2 (event) Not sure [employer] Work Phone: Start: 06-12-2021 End: 02-06-2023 Alcohol intake Current drinker of alcohol (finding) [employer] Work Phone: Start: 06-03-2021 History SDOH Alcohol Comment occ [id number] Work Phone: Start: 03-21-2022 Tobacco smoking stat [facility] Occasional tobacco smoker [id number] Work Phone: History of tobacco use Cigarette Smoker [facility] Work Phone: Start: 03-21-2022 End: 03-19-2023 Cigarettes smoked current (pack per day) - Reported 0.5 [id number] Work Phone: Start: 03-21-2022 History SDOH Alcohol Frequency 3 [id number] Work Phone: Start: 03-21-2022 History SDOH Alcohol Std Drinks 2 [id number] Work Phone: Start: 09-23-2022 History SDOH Social Connections Phone 5 [email or web address] Work Phone: Start: 03-21-2022 History SDOH Social Connections Sabianism 1 [email or web address] Work Phone: Start: 03-21-2022 History SDOH Social Connections Living 8 [email or web address] Work Phone: Start: 03-21-2022 History SDOH Physica l Activity DPW 0 [id number] [email or web address] Work Phone: Start: 12-31-2022 End: 03-19-2023 Tobacco use panel [facility] Start: 04-17-2022 Gender identity Identifies as female gender (finding) [facility] Clinical Notes 04-05-2021 to 02-06-2023 Wilfredo Fischer DO - 02/06/2023 11:00 AM EDTTelephone Encounter - Jane Downs - 01/01/2023 3:04 PM EDTTelephone Encounter - Jane Downs - 01/01/2023 3:04 PM EDT Note Date & Type Note Facility 02-06-2023 History of Present illness Narrative Images from the original note were not included. [facility] [address] [place] [id number] Visit type: Established Patient Reason for Visit: Numbness (In left arm all the time, and on and off in right arm since July, feet have been swelling) Assessment / Plan: Cheryl was seen today for numbness. Diagnoses and all orders for this visit: Essential hypertension (Primary) Comments: Uncontrolled, restart Aldactone 100 mg daily. BP check 4 weeks. Low-salt meals, stop smoking Idiopathic neuropathy Comments: Recurrent symptoms. Unsure of etiology. Await neurology consultation Other orders - spironolactone (Aldactone) 100 MG tablet; Take 1 tablet (100 mg) by mouth daily for 30 doses. 35 minutes reviewing patient's records, patient interview exam and discussion of diagnosis and treatment options. Await neurology consultation. Subjective: Patient ID: Cheryl Wood is a 32 y.o. female. HPI patient with history of labile hypertension presents to discuss ongoing symptoms of neuropathy. Presented about a year ago with bilateral sensitivity to her lateral thighs. Work-up at that time showed a nonspecific neuropathy. Lumbar x-rays were milligram remarkable. She then presented months later with upper extremity tingling particular the left shoulder down to the fourth and fifth fingers of the left hand. EMG of the upper extremities also showed neuropathy. Suggestive of cervical neuropathy but recent MRI of the cervical spine essentially unremarkable. History of pseudotumor cerebri but has had work-up by neuro-ophthalmology. Last evaluation about a year ago. Reversible medical causes have been excluded. Of note she is scheduled to see Neurologist, Dr. Garvey in [place] in about 2 weeks. Review of Systems no change in vision. She feels her blood pressure is high and wants to monitor her hair and gets full. No diplopia or unilateral numbness of the face arm or legs. No history of severe migraines. Rare smoker. No cardiac or pulmonary symptoms besides intermittent pedal edema. She did respond to Aldactone 100 mg twice daily for acne and blood pressure but she was fearful of slight elevated creatinine. She has been off Aldactone for a while. Acne is mild. But blood pressure elevating. Allergies Allergen Reactions Minocycline Hives Hives swelling Nickel Current Outpatient Medications on File Prior to Visit Medication Sig Dispense Refill adapalene (Differin) 0.3 % gel albuterol 108 (90 Base) MCG/ACT inhaler Inhale 2 puffs every 6 hours as needed for shortness of breath or wheezing. 18 g 2 Dulera 200-5 MCG/ACT inhaler INHALE 2 PUFFS INTO THE LUNGS IN THE MORNING AND 2 PUFFS IN THE EVENING. Probiotic Product (PROBIOTIC-10 ULTIMATE PO) Take by mouth. [DISCONTINUED] LORazepam (Ativan) 0.5 MG tablet One tab tonight and one tab 2 hours before MRI (Patient not taking: Reported on 02/06/2023) 2 tablet 0 [DISCONTINUED] spironolactone (Aldactone) 100 MG tablet Take 1 tablet (100 mg) by mouth in the morning and 1 tablet (100 mg) before bedtime. (Patient not taking: Reported on 02/06/2023) 60 tablet 5 No current facility-administered medications on file prior to visit. Patient Active Problem List Diagnosis RhD negative Pseudotumor cerebri Mild intermittent asthma without complication Laryngotracheitis, chronic Labile hypertension Cough Acne Family history of diabetes mellitus in father Essential hypertension Social History Tobacco Use Smoking status: Some Days Packs/day: 0.50 Types: Cigarettes Smokeless tobacco: Never Substance Use Topics Alcohol use: Yes Alcohol/week: 3.0 standard drinks of alcohol Past Surgical History: Procedure Laterality Date SECTION (HISTORICAL) SECTION (HISTORICAL) DENTAL SURGERY SHOULDER ARTHROSCOPY W/ LABRAL REPAIR Right 05/2021 Dr. Brown Family History Problem Relation Name Age of Onset No Known Problems Mother Gael More (BUS TRANSPORTATION MANAGER at [employer]) Heart disease Father Sae COPD Father Sae smoker Diabetes Father Sae No Known Problems Sister No Known Problems Sister No Known Problems Brother No Known Problems Daughter Premature Daughter Cancer Father's Brother Lung Multiple sclerosis Maternal Grandmother Lung cancer Maternal Grandmother Eye cancer Maternal Grandfather Diabetes Maternal Grandfather Kidney disease Maternal Grandfather Pancreatic cancer Maternal Grandfather Emphysema Paternal Grandmother Prostate cancer Paternal Grandfather Objective: BP 134/88 Pulse 88 Temp 36.1 C (96.9 F) (Temporal) Ht 5' 9 (1.753 m) Wt 297 lb (135 kg) SpO2 97% BMI 43.86 kg/m Physical Exam her exam is unchanged. No neck masses thyroid lesions or carotid bruits. No adenopathy. All cranial nerves are normal. Pupils equal. Extraocular muscles are intact. Negative Spurling's. Entire upper and lower extremity strength is normal. No fasciculations. No Judith's or Babinski. Toes downgoing and no clonus. Dsywer-hn-ohsy, tandem and Romberg testing is normal. Recheck blood pressure slightly elevated. Reviewed multiple studies including cervical MRI. EMG of the upper or lower extremities. Lumbar back x-rays. Reviewed lab work. documented in this encounter [facility] [facility] 01-01-2023 Telephone encounter Note Extension's new tracking # [id number] Auth # [id number] good until 01/31/23. Pt advised and is going to schedule herself [facility] [facility] 01-01-2023 Miscellaneous Notes Extension's new tracking # [id number] Auth # [id number] good until 01/31/23. Pt advised and is going to schedule herself Name of caller: Susy Contact phone number: [phone] Relationship to Patient: patient Provider: Dr. Fischer Practice: [facility] Chief Complaint/Reason for Call: The patient is calling because she is scheduled today 01/01/2023 at 1 PM for a Cervical Spine MRI. The patient states the Referral has and needs to have an extension of at least 1 more day. Please advise. Best time of day caller can be reached: Any Patient advised that office/PCP has 24-48 business hours to return their call: No documented in this encounter [facility] 01-01-2023 Telephone encounter Note Name of caller: Susy Contact phone number: [phone] Relationship to Patient: patient Provider: Dr. Fischer Practice: [facility] Chief Complaint/Reason for Call: The patient is calling because she is scheduled today 01/01/2023 at 1 PM for a Cervical Spine MRI. The patient states the Referral has and needs to have an extension of at least 1 more day. Please advise. Best time of day caller can be reached: Any Patient advised that office/PCP has 24-48 business hours to return their call: No [facility] 12-31-2022 Telephone encounter Note Rx loaded [facility] 12-31-2022 Miscellaneous Notes Rx loaded documented in this encounter [facility] 12-01-2022 Note Addended by: BRISEYDA MCDOWELL on: 12/01/2022 03:51 PM Modules accepted: Orders [facility] 12-01-2022 Miscellaneous Notes Addended by: BRISEYDA MCDOWELL on: 12/01/2022 03:51 PM Modules accepted: Orders Orders pended for doctor signature ----- Message from Shannon Butt MA sent at 10/20/2022 11:21 AM EDT ----- Patient was given the number to schedule with neuro patient would like the MRI of cervical spine. documented in this encounter [facility] 10-20-2022 Telephone encounter Note Orders pended for doctor signature [facility] 10-20-2022 Miscellaneous Notes Orders pended for doctor signature ----- Message from Shannon Butt MA sent at 10/20/2022 11:21 AM EDT ----- Patient was given the number to schedule with neuro patient would like the MRI of cervical spine. documented in this encounter [facility] 10-20-2022 Telephone encounter Note ----- Message from Shannon Butt MA sent at 10/20/2022 11:21 AM EDT ----- Patient was given the number to schedule with neuro patient would like the MRI of cervical spine. [facility] 10-17-2022 Note [facility] Neurology Lab EMG/NCS report: Patient: Cheryl Wood AGE: 32 y.o. Handedness: Right Gender: Female Referring physician: Wilfredo Fischer DO Study date: 10/17/22 Reason for referral: Patient presents with numbness in the bilateral arms and hands bilaterally. EMG/nerve conduction study the bilateral upper extremities is done to evaluate for mononeuropathy affecting the right left upper extremity versus right or left cervical radiculopathy. Summary: The right median sensory nerve action potential was unremarkable. The left median sensory nerve action potential was unremarkable. The right ulnar sensory nerve action potential was unremarkable. The left ulnar sensory nerve action potential was unremarkable. The right radial sensory nerve action potential was unremarkable. The left radial sensory nerve action potential was unremarkable. The right median to ulnar palmar comparison mixed nerve action potential was unremarkable. The left median to ulnar palmar comparison mixed nerve action potential was unremarkable. The right median to APB compound muscle action potential was unremarkable. The left median to APB compound muscle action potential was unremarkable. The right ulnar to ADM compound muscle action potential was unremarkable. The left ulnar to ADM compound muscle action potential was unremarkable. Concentric needle EMG was performed in the bilateral upper extremities. No increased insertional activity, fibrillation potentials, fasciculation potentials or positive sharp waves were seen in any muscle tested. Motor unit action potentials demonstrate increased amplitude, duration and reduced recruitment in the bilateral pronator teres and bilateral triceps brachii. All other muscles tested demonstrated normal morphology and firing pattern throughout. Impression: This is an abnormal study. There is electrophysiological evidence of chronic, inactive, bilateral C7 radiculopathies with no evidence of active ongoing denervation at that level. There is no evidence of an active right or left-sided cervical radiculopathy on this study. This patient would benefit from an image of the cervical spine to evaluate the bilateral C7 nerve roots if one has not been done recently and if the patient has no contraindication to imaging. There is no evidence of a mononeuropathy affecting the right or left upper extremity on this study. All normal values/reference values for this study were taken from the [facility] reference values which were created in 2019. This dictation was done by using the [employer] system. It has been proofread but still may contain unrecognized voice recognition errors. [facility] 10-09-2022 Telephone encounter Note Orders pended for doctor's signature [facility] 10-09-2022 Miscellaneous Notes Orders pended for doctor's signature ----- Message from Wilfredo Maximiliano DO Amado sent at 10/07/2022 9:56 PM EDT ----- Besides some mild straightening of her cervical spine which is nonspecific and can be due to her general posture. There is no description of degenerative disc disease of her cervical spine.. I am unsure of the etiology of her arm symptoms, so I recommend bilateral upper extremity EMGs with nerve conduction studies if the symptoms are persisting over the last 2 months since I saw her. Schedule those exams if she agrees. documented in this encounter [facility] 10-09-2022 Telephone encounter Note ----- Message from Wilfredo Fischer DO sent at 10/07/2022 9:56 PM EDT ----- Besides some mild straightening of her cervical spine which is nonspecific and can be due to her general posture. There is no description of degenerative disc disease of her cervical spine.. I am unsure of the etiology of her arm symptoms, so I recommend bilateral upper extremity EMGs with nerve conduction studies if the symptoms are persisting over the last 2 months since I saw her. Schedule those exams if she agrees. [facility] 08-05-2022 Note Referral pended for dx and doctor's signature [facility] 06-27-2022 Note Name: Cheryl [facility] Date of : 1990 Attending physician: Wilfredo Fischer, DO A report of nerve conduction studies and electromyography of both lower extremities Date of service: June 27, 2022 Findings: Sensory nerve conduction studies were technically difficult to perform, but ultimately yielded normal response latencies and amplitudes in the sural and superficial peroneal nerves bilaterally. Motor nerve conduction studies disclosed normal distal latencies, response amplitudes and conduction velocities in the peroneal/fibular and tibial nerves bilaterally. Tibial nerve H-reflexes were normal bilaterally. Needle EMG examination disclosed normal spontaneous activity in the vastus medialis and lateralis, tibialis anterior, lateral gastrocnemius, extensor hallucis longus, extensor digitorum brevis and abductor hallucis bilaterally. Motor unit potential recruitment was moderately decreased in the right extensor digitorum brevis, mildly decreased in the right abductor hallucis, and slightly decreased in the right extensor hallucis longus, the left tibialis anterior and the left extensor digitorum brevis; in each of these muscles there were enlarged motor unit potentials. There were also occasional enlarged motor unit potentials in the left abductor hallucis without impairment of recruitment. Motor unit potential recruitment and morphology were normal in all other muscles examined. Paraspinal muscle examination was deferred due to the lack of reliable anatomic landmarks. 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 Given the intact sensory nerve conduction studies, the neuropathy is most likely a small-fiber polyneuropathy. Nerve conduction studies record the fastest responses from large myelinated nerve fibers, and may not detect neuropathies that preferentially affect only small and unmyelinated fibers. An alternative diagnosis of multiple lumbosacral motor radiculopathies could be entertained in view of the normal sensory nerve studies, but the findings on electromyography were relatively symmetric in a distal distribution that did not conform to any specific motor roots. Clinical correlation is advised. Niurka Purcell MD Test numbers [id number] and [id number] Location: Testing was conducted at [facility] as an outpatient. [facility] 04-05-2021 Note HNO ID: [id number] Author: Ayan Sadler, DO Service: ? Author Type: Physician Type: Progress Notes Filed: 04/05/2021 8:57 AM Note Text: Transient visual loss of right eye (primary encounter diagnosis) she describes what sounds like typical TOV's Right eye yet she has no papilledema. To my understanding we don't get TOV's without papilledema so I'm at a loss to explain her symptoms. I have confirmed and edited as necessary the relevant ophthalmic history, ROS, and the neuro exam findings as obtained by others. I have seen and examined this patient. I have discussed the case and the management of this patient's care with the Resident/Fellow, if applicable. I also have reviewed and agree with the assessment and plan as stated above and agree with all of its relevant components. Ayan Sadler, DO April 05, 2021 8:56 AM [facility] documented in this encounter [facility] Work Phone: Evaluation note* Diagnosis Mouth pain- Primary Other and unspecified diseases of the oral soft tissues Throat pain documented in this encounter [facility] Work Phone: Evaluation note* Diagnosis Cough documented in this encounter [facility] Work Phone: Evaluation note* Diagnosis Paresthesia of upper extremity documented in this encounter [facility]* Diagnosis Lumbar radiculopathy, chronic documented in this encounter [facility]* Diagnosis Lumbar radiculopathy, chronic documented in this encounter [facility]* Diagnosis Paresthesia of upper extremity Abnormal NCS (nerve conduction studies) documented in this encounter [facility]* Diagnosis Anxiety- Primary Anxiety state, unspecified documented in this encounter [facility]* Diagnosis Essential hypertension- Primary Unspecified essential hypertension Idiopathic neuropathy Other specified idiopathic peripheral neuropathy [facility]* Attachments The following attachments cannot be sent through Care Everywhere. * Sore Throat ([place]) [facility] Summary Purpose Family History No Family History Records FoundNo Family History Records FoundNo Family History Records FoundNo Family History Records FoundNo Family History Records FoundNo Family History Records Found Advance Directives Documents on File Type Date Recorded Patient Planer Stone Expl anation ACP-Advance Directive ACP-Power of Rails Developer Latest Code Status on File Code Status Date Activated Date Inactivated Comments Full Code 12/30/2017 11:01 PM 01/01/2018 2:47 PM Full Code 12/04/2017 11:48 PM 12/30/2017 11:01 PM Documents on File Type Date Recorded Patient Planer Stone Expl anation ACP-Advance Directive ACP-Power of Rails Developer Latest Code Status on File Code Status Date Activated Date Inactivated Comments Full Code 12/30/2017 11:01 PM 01/01/2018 2:47 PM Full Code 12/04/2017 11:48 PM 12/30/2017 11:01 PM Latest Code Status on File Code Status Date Activated Date Inactivated Comments Full Code 06/03/2021 7:05 AM 06/03/2021 3:56 PM Full Code 12/30/2017 11:01 PM 01/01/2018 2:47 PM Reason for Referral Status Reason Specialty Diagnoses / Procedures Referred By Contact Referred To Contact Open Specialty Services Required Orthopedic Surgery Diagnoses Acute pain of right shoulder Niurka Rivas MD [address] [place] [address] [address] [id number] [address] [place] [address] Scheduling Instructions [facility] Orthopedics - [place] [address] [place] [address] Status Reason Specialty Diagnoses / Procedures Referre d By Contact Referred To Contact Closed Radiology Diagnoses Instability of right shoulder joint Procedures XR SHOULDER ARTHROGRAM RIGHT S&I Humphrey Amin MD [address] [facility] [address] [place] [address] Status Reason Specialty Diagnoses / Procedures Referred By Contact Referred To Contact Open Specialty Services Required Otolaryngology Diagnoses Mouth pain Throat pain [place], 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 [address] [place] [address] [address] [place] [address] Scheduling Instructions [facility] ENT-[place] [address] [place], [place] [address] F: [phone] Specialty Diagnoses / Procedures Referred By Contac t Referred To Contact Diagnoses Paresthesia of upper extremity Procedures NERVE CONDUCTION TEST WITH EMG Wilfredo Fischer F, DO [address] [place] [address] Referral ID Status Reason Start Date Expiration Date V isits Requested Visits Authorized [id number] Incomplete 10/09/2022 04/07/2023 1 1 Specialty Diagnoses / Procedures Referred By Contac t Referred To Contact Radiology Diagnoses Lumbar radiculopathy, chronic Procedures MR cervical spine wo contrast Wilfredo Fischer, DO [address] [place] [address] Referral ID Status Reason Start Date Expiration Date V isits Requested Visits Authorized [id number] Pending Review 10/20/2022 04/18/2023 1 1 Specialty Diagnoses / Procedures Referred By Contac t Referred To Contact Radiology Diagnoses Paresthesia of upper extremity Abnormal NCS (nerve conduction studies) Procedures MR cervical spine wo contrast Wilfredo Fischer, DO [address] [place] [address] Referral ID Status Reason Start Date Expiration Date V isits Requested Visits Authorized [id number] Authorized 11/18/2022 05/17/2023 1 1 Discharge Instructions * Instructions* Niurka Rivas MD - 08/09/2020 Ice 20 minutes every hour today sling for immobilization. Tomorrow can start doing range of motion exercises as shown and remove arm from sling 5-6 times daily to prevent stiffness in the shoulder elbow or wrist. Call orthopedics as referred, tomorrow for an appointment to be rechecked next week. * Attachments The following attachments cannot be sent through Care Everywhere. * Shoulder Sprain (Zimbabwean) documented in this encounter [facility] Diagnosis Acute pain of right shoulder- Primary Additional Source Comments INFORMATION SOURCE (unrecogn ized section and content) DATE CREATED AUTHOR AUTHOR'S ORGANIZ ATION 02/17/2018 [facility] DATE CREATED AUTHOR AUTHOR'S ORGANIZ ATION 06/06/2021 [facility] DATE CREATED AUTHOR AUTHOR'S ORGANIZ ATION 08/05/2021 [facility] DATE CREATED AUTHOR AUTHOR'S ORGANIZ ATION 03/31/2022 [facility] DATE CREATED AUTHOR AUTHOR'S ORGANIZ ATION 04/11/2023 [facility] Reason for Visit (unrecogniz ed section and content) Status Reason Specialty Diagnoses / Procedures Referre d By Contact Referred To Contact Closed Radiology Diagnoses Instability of right shoulder joint Procedures XR SHOULDER ARTHROGRAM RIGHT S&I Humphrey Amin MD [address] [facility] [address] [place] [address] Reason Comments Mouth Lesions Reason Onset Date Comments Orders 10/09/2022 EMG/NCS B/L Uppe r Reason Onset Date Comments Orders 10/20/2022 MRI C Spine Reason Onset Date Comments Orders 10/20/2022 MRI C Spine Reason Onset Date Comments Med Refill 12/31/2022 Reason Onset Date Comments Referral Extension 01/01/2023 Specialty Diagnoses / Procedures Referred By Conttomy t Referred To Contact Radiology Diagnoses Paresthesia of upper extremity Abnormal NCS (nerve conduction studies) Procedures MR cervical spine wo contrast Wilfredo Fischer, DO [address] [place] [address] Referral ID Status Reason Start Date Expiration Date V isits Requested Visits Authorized [id number] Authorized 11/18/2022 05/17/2023 1 1 Reason Comments Numbness In left arm all the time, and on and off in right arm since July, feet have been swelling Reason Comments Med Refill Ordered Prescriptions (unrec ognized section and content) Prescription Sig Dispensed Refills Start Date End Da te omeprazole (PRILOSEC) 20 MG delayed release capsule Take 1 capsule by mouth daily 30 capsule 0 11/13/2020 Magic Mouthwash (MIRACLE MOUTHWASH) Swish and spit 5 mLs 4 times daily as needed for Irritation 1:1:1 concentration 240 mL 0 11/13/2020 Care Teams (unrecognized sec tion and content) Real Time Operator Relationship Specialty Start Date End Date Wilfredo Fischer, DO [address] [place] [address] PCP - General 03/21/22 Real Time Operator Relationship Specialty Start Date End Date Wilfredo Fischer, DO [address] [place] [address] PCP - General 03/21/22 Real Time Operator Relationship Specialty Start Date End Date Wilfredo Fischer, DO [address] [place], [place] [id number] PCP - General 03/21/22 Real Time Operator Relationship Specialty Start Date End Date Wilfredo Fischer DO [address] [place], [place] [id number] PCP - General 03/21/22 Real Time Operator Relationship Specialty Start Date End Date Wilfredo Fischer DO [address] [place], [place] [id number] PCP - General 03/21/22 Real Time Operator Relationship Specialty Start Date End Date Wilfredo Fischer DO [address] [place], [place] [id number] PCP - General 03/21/22 Real Time Operator Relationship Specialty Start Date End Date Wilfredo Fischer DO [address] [place] [address] [address] [place] [id number] [facility] - General 03/21/22 FOR RECORDS PERTAINING TO PATIENTS WHO ARE OR HAVE BEEN ENROLLED IN A CHEMICAL DEPENDENCY/SUBSTANCEABUSE PROGRAM, SOME INFORMATION MAY BE OMITTED. This clinical summary was aggregated from multiple sources. Caution should be exercised in using it in the provision of clinical care. This summary normalizes information from multiple sources, and as a consequence, information in this document may materially change the coding, format and clinical context of patient data. In addition, data may be omitted in some cases. CLINICAL DECISIONS SHOULD BE BASED ON THE PRIMARY CLINICAL RECORDS. [facility]. provides no warranty or guarantee of the accuracy or completeness of information in this document.
[2023-06-26 15:43] LABS: Anion Gap 5 (5-15); BUN 14 mg/dL (7-18); BUN/Creat Ratio 14.4 RATIO (10-20); Chloride 108 mmol/L (98-107); Creatinine, Serum 0.97 mg/dL (0.55-1.02); EST Glomerular Filtration Rate 70 mL/min (>60); Est Glom Filt Rate - Afr Amer 84 mL/min (>60); Glucose 88 mg/dL (74-106); Potassium 3.8 mmol/L (3.5-5.1); Sodium Level 136 mmol/L (136-145)
== END | disposition home or self-care (01) ==
LOC: MTLAB 11:52
PROVIDERS: PCP Family Medicine; Referring Provider Psychiatry & Neurology Neurology; Visit Provider Psychiatry & Neurology Neurology
DX: G93.2 Benign intracranial hypertension (principal)
CPT/HCPCS: 36415; 80048

== ENCOUNTER 2024-09-21 18:32 | Emergency (ER) | payer OTHER, SELFPAY ==
[2024-09-21 18:33] VITALS: BP 134/99; PULSE 79; RESP 15; TEMP 36.4; O2SAT 99; BMI 43.9
--- NOTE | 2024-09-21 19:54 | EX.ED.DYSGE1 ---
HPI History of Present Illness Chief Complaint: Bite Narrative Narrative: Patient is a 34-year-old female with no known significant past medical history who presents to the emergency department with a chief complaint of cat bite to the right hand. Patient states that she is unsure of the cats rabies vaccine status. They know that the cat had vaccine in the past but does not know the current state. 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 She states that she was concerned as they owners the cat took it with them and is unsure if they will get the rabies testing or not and is requesting the rabies vaccine here in the emergency department. Patient states that she does not know when her last tetanus shot was. [facility] Medical History Fatigue delivery delivered Home Medications ?Medication ?Instructions ?Recorded ?Last Taken ?Type Lactobacillus acidophilus 1 1,000 mmu cells PO DAILY 02/24/23 Unknown History billion cell capsule (Probiotic Gold Acidophilus) albuterol sulfate 90 mcg/actuation 2 puff inhalation Q6H PRN 02/24/23 Unknown History aerosol inhaler flurbiprofen 100 mg tablet 100 mg PO TID PRN pain #90 tabs 02/24/23 Unknown Rx mometasone-formoterol HFA 200 2 puff inhalation BID 02/24/23 Unknown History mcg-5 mcg/actuation aerosol inhaler (Dulera) alprazolam 1 mg tablet 1 mg .Route .COMPLEX #1 TAB 02/25/23 Unknown Rx cephalexin 250 mg capsule 250 mg PO Q6H #28 caps 04/08/23 Unknown Rx acetazolamide 250 mg tablet 250 mg PO BID #60 tabs 04/19/24 Unknown Rx Allergy/AdvReac Type Severity Reaction Status Date / Time minocycline AdvReac Severe Hives Verified 09/21/24 18:36 Surgical History Status post labral repair of shoulder Social History Smoking Status: Current some day smoker tobacco type: cigarettes ROS ROS ED ROS Narrative Constitutional: Denies fevers, chills, headaches Neurological: Denies numbness, weakness, tingling Skin: Complains of cat bite to the right hand as noted above EXAM Physical Exam Narrative Exam Narrative: General: Patient l sitting at bedside in chair did not appear to be in acute distress Head: Atraumatic, normocephalic Eyes: PERRL bilaterally, EOMI bilateral, no conjunctival injection noted Neck: Soft, supple, trachea midline Cardiovascular: Regular rate and rhythm no murmurs gallops rubs noted Extremities: +5/5 strength noted in bilateral upper and lower extremities, radial pulse +2/4 in the bilateral extremities Neurological: Patient follow commands that she was at [facility] year is 2024. Sensation grossly intact in the median ulnar radial nerve distributions bilaterally Skin: Patient has small abrasions to the right hand and the index and middle finger no active bleeding noted Const Vital Signs: 09/21/24 18:33 Temperature 97.6 F L Temperature Source Temporal Pulse Rate 79 Respiratory Rate 15 Blood Pressure 134/99 H Blood Pressure Mean 110 Pulse Ox 99 Oxygen Delivery Method Room Air MDM MDM MDM Narrative Medical decision making narrative: Patient is a 34-year-old female who presented to the emerged part with a concern for being bitten by a cat and wanting the rabies vaccine series. This will be ordered. Patient's tetanus shot will be updated. I ordered an x-ray of her hand and she is refusing this I advised her that there is a chance we are missing a retained foreign body in her hand she verbalized understanding of this and understand that this is placing her at high risk for infection even more so if there is a retained foreign body however she still does not want the hand x-ray. Patient was given the rabies vaccine as well as tetanus shot was updated she was given her first dose of Augmentin here in the emergency department. Patient be on prescription for Augmentin and was advised to watch out for signs infection while on the antibiotic such as surrounding redness or purulent drainage for this is to occur she was advised to return to the emergency department. She was advised to follow-up with corporate care. She is encouraged to return with any other concerns she is agreeable this plan all question concerns answered she was discharged home in stable condition. Discharge Plan Triage Chief Complaint: Bite ED Provider: Abhi Cooper Dx/Rx/DC Orders Clinical Impression: Cat bite Prescriptions: No Action albuterol sulfate 90 mcg/actuation HFA aerosol inhaler 2 puff inhalation Q6H PRN Dulera 200-5 mcg/actuation HFA aerosol inhaler 2 puff inhalation BID Probiotic Gold Acidophilus 1 billion cell capsule 1,000 mmu cells PO DAILY flurbiprofen 100 mg tablet 100 mg PO TID PRN (Reason: pain) Qty: 90 4RF alprazolam 1 mg tablet 1 mg .ROUTE .COMPLEX Qty: 1 0RF Rx Instructions: Take 1 tablet x1 orally 30 minutes prior to MRI. cephalexin 250 mg capsule 250 mg PO Q6H Qty: 28 0RF acetazolamide 250 mg tablet 250 mg PO BID Qty: 60 1RF Primary Care Provider: Care Physician,No Primary Referrals: Care Physician,No Primary [Primary Care Provider] - Ebony Blood, TAL[facility] REP[facility] [[facility]] - Activity Restrictions/Additional Instructions: Follow schedule that you are given for the rabies vaccine series. Take antibiotics as prescribed if you develop surrounding redness or purulent drainage while on antibiotics you need to return to the emergency department. Follow-up your primary care physician or if you not having you referred to 1. Return with any other concerns. Your tetanus shot was updated today. Print Language: Maori Disposition Disposition: Home, Self Care
--- NOTE | 2024-09-21 20:01 | ED.RN ---
This RN spoke with Raysa, elisabet lead, and confirmed that the patient did not need a UDS.
[2024-09-21] MEDS: Diphth,Pertuss(Acell),Tet Vac 0.5 ML Vial IM (20:13)
[2024-09-21] MEDS: Rabies Vaccine,Human Diploid 2.5 UNITS Vial IM (20:19)
[2024-09-21] MEDS: Rabies Immune Globulin/PF 300 UNIT/ML, 5 ML VIAL 2700 UNIT IM (20:21)
[2024-09-21] MEDS: Amox/Clavulanate 875 MG Tablet PO (21:04)
== END 2024-09-21 21:59 | disposition home or self-care (01) ==
PROVIDERS: Emergency Provider Emergency Medicine; Visit Provider Emergency Medicine
DX: S61.451A Open bite of right hand, initial encounter (principal); F17.210 Nicotine dependence, cigarettes, uncomplicated; W55.01XA Bitten by cat, initial encounter
CPT/HCPCS: 90675; 90715; 99284; 90375

== ENCOUNTER 2024-09-24 16:14 | Outpatient (CLI) | payer OTHER, SELFPAY ==
[2024-09-24 16:15] VITALS: BP 161/92; PULSE 92; RESP 16; TEMP 36.6; O2SAT 98; BMI 43.9
[2024-09-24 16:50] VITALS: BP 124/70; PULSE 66; RESP 12; TEMP 36.8; O2SAT 100; BMI 43.9
[2024-09-24] MEDS: Rabies Vaccine,Human Diploid 2.5 UNITS Vial IM (16:50)
== END 2024-09-24 17:05 | disposition home or self-care (01) ==
PROVIDERS: Visit Provider Emergency Medicine
DX: Z23 Encounter for immunization (principal)
CPT/HCPCS: 90675; 96372

== ENCOUNTER 2024-09-28 16:01 | Outpatient (CLI) | payer OTHER, SELFPAY ==
[2024-09-28 16:02] VITALS: BP 154/72; PULSE 70; RESP 18; TEMP 36.2; O2SAT 100; BMI 43.6
[2024-09-28] MEDS: Rabies Vaccine,Human Diploid 2.5 UNITS Vial IM (16:40)
[2024-09-28 16:43] VITALS: BP 154/72; PULSE 70; RESP 18; TEMP 36.2; O2SAT 100; BMI 43.6
== END 2024-09-28 17:03 | disposition home or self-care (01) ==
PROVIDERS: Visit Provider Emergency Medicine
DX: Z23 Encounter for immunization (principal)
CPT/HCPCS: 90675; 96372

== ENCOUNTER 2024-10-05 16:31 | Outpatient (CLI) | payer OTHER, SELFPAY ==
[2024-10-05 16:32] VITALS: BP 156/93; PULSE 68; RESP 13; TEMP 36.1; O2SAT 99; BMI 44.6
[2024-10-05 16:55] VITALS: BMI 44.6
[2024-10-05] MEDS: Rabies Vaccine,Human Diploid 2.5 UNITS Vial IM (17:56)
[2024-10-05 18:09] VITALS: BP 142/78; PULSE 68; RESP 13; TEMP 36.1; O2SAT 99
== END 2024-10-05 18:13 | disposition home or self-care (01) ==
LOC: ED 18:16
PROVIDERS: Visit Provider Emergency Medicine
DX: Z23 Encounter for immunization (principal)
CPT/HCPCS: 90675; 96372

== ENCOUNTER 2025-03-04 16:26 | Emergency (ER) | payer MEDICAID, SELFPAY ==
[2025-03-04 16:28] VITALS: BP 139/83; PULSE 84; RESP 16; TEMP 36.6; O2SAT 100; BMI 44.6
--- OUTSIDE RECORDS SUMMARY | 2025-03-04 17:36 | XMS RPT_ITS | CCD ---
Author Organization [facility] Care Team Providers Care Dough Cutter Name Role Phone TRICE KAPOOR Unavailable Unavailable LARISSAMILTON POWELL Unavailable Unavailable GENA SMART Unavailable UnavaLUIS FERNANDO Sharma Unavailable Unavailable NO PRIMARY CARE, MD Unavailable Unavailable LUIS FERNANDO [place] Unavailable Unavailable JC, MIGNON T Unavailable [...] NIURKA BAEZA Unavailable Unavailable NO PRIMARY CARE, MD Unavailable Unavailable GRANADO JANEY Unavailable Unavailable JC, MIGNON T Unavailable Unavailable NO PRIMARY CARE, MD Unavailable Unavailable GRANADO, JANEY Unavailable Unavailable JC, MIGNON T Unavailable Unavailable NO PRIMARY CARE, MD Unavailable Unavailable JC, MIGNON T Unavailable Unavailable JENNIE, SARITHA Unavailable Unavailable NO PRIMARY CARE, MD Unavailable Unavailable JENNIE, SARITHA Unavailable Unavailable JENNIE, SARITHA Unavailable Unavailable NO PRIMARY CARE, MD Unavailable Unavailable MING SALINAS Unavailable Unavailable NIURKA BAEZA Unavailable Unavailable NO PRIMARY CARE, Unavailable Unavailable JIMENA, MIGNON L Unavailable Unavailable NIURKA BAEZA Unavailable Unavailable NO PRIMARY CARE, MD Unavailable Unavailable Unavailable Primary Care Provider Unavailabl e Unavailable Primary Care Provider Unavailhouston e Wilfredo Fischer DO Primary Care Provider Amado, Wilfredo Primary Care Unavailable Wilfredo Fischer Attending Unavailable PROVIDER, UNKNOWN Referring Unavailable PROVIDER, UNKNOWN Referring Unavailable Nelson Brown Attending Unavailable Larissa, Milton Primary Care Unavailable Mignon Morales Attending Unavailable Larissa, Milton Primary Care Unavailable PROVIDER, UNKNOWN Referring Unavailable PROVIDER, UNKNOWN Referring Unavailable Nelson Brown Attending Unavailable Larissa, Milton Primary Care Unavailable Petrilljared VIDALES, Wilfredo F Primary Care Provider [phone] Amado VIDALES, Wilfredo F Primary Care Provider Dr. Wilfredo Fischer Primary Care Provider [phone] Dr. Wilfredo Fischer Referring Provider Dr. Herberth Steele Attending Provider Petrilorena DO, Wilfredo F Primary Care Provider Dr. Wilfredo Fischer Primary Care Provider Dr. Herberth Steele Attending Provider Dr. Herberth Steele Referring Provider Dr. Wilfredo Fischer Referring Provider [phone] Unavailable Primary Care Provider Unavailabl e SHAY IZQUIERDO Attending Unavailable GEORGINA, JASON Referring Unavailable SKARTEM, JASON Referring Unavailable GEORGINA, JASON Attending Unavailable GISSEL HERNANDEZ Referring Unavailable FELECIA, SHAY Attending Unavailable FELECIA, SHAY Referring Unavailable AMADO, WILFREDO Primary Care Unavailable Dr. Abhi Cooper DO Emergency Provider [phone] Care Physician, No Primary Primary Care Provider Unavailable Dr. Abhi Cooper DO Attending Provider [phone] Care Physician, No Primary Primary Care Unava ilable Abhi Cooper Attending Unavailable Care Physician, No Primary Primary Care Unava ilable Abhi Cooper Attending Unavailable Care Physician, No Primary Primary Care Unava ilable Abhi Cooper Attending Unavailable Abhi Cooper Attending Unavailable Care Physician, No Primary Primary Care Unava ilable Allergies Allergy Classification Reported Allergen(s) Allergy Type Date of Onset Reaction(s) Facility (20 sources) Minocycline Drug Allergy 05-31-2021 Hives [facility] (20 sources) nickel sulfate Drug Allergy 05-31-2021 [facility] Work Phone: (6 sources) Minocycline Drug Allergy 02-24-2023 [facility] Comment on above: ania (1 source) Minocycline Drug Allergy 10-05-2024 [facility] Repository Medications Current Medications Medication Drug Class(es) Dates Sig (Normalized) Sig (Original) adapalene 0.003 mg/mg topical gel (9 sources) Retinoid Start: 01-26-2023 adapalene (Differin) 0.3 % gel 01/26/2023 Active [id number] 200 actuat albuterol 0.09 mg/actuat metered dose inhaler (20 sources) beta2-Adrenergic Agonist Start: 04-08-2023 take 2 puff(s) by inhalation every six hours for wheezing albuterol 108 (90 Base) MCG/ACT inhaler inhale 2 puffs every 6 hours if needed for shortness of breath or wheezing 8.5 g 2 04/08/2023 Active Start: 02-24-2023 Albuterol Sulf ate 90 mcg/actuation HFA aerosol inhaler Active 2 NMA INHALATION EVERY 6 HOURS as needed February 24, 2023 12:00am Start: 02-24-2023 take 1 puff(s) by in halation every six hours Albuterol Sulfate Active 2 PUFF INHALATION EVERY 6 HOURS February 23, 2023 11:00pm Start: 12-31-2022 End: 04-08-2023 take 2 puff(s) by inhalation every six hours as needed for wheezing albuterol 108 (90 Base) MCG/ACT inhaler Inhale 2 puffs every 6 hours as needed for shortness of breath or wheezing. 18 g 2 12/31/2022 04/08/2023 Discontinued Start: 03-21-2022 End: 12-31-2022 take 2 puff(s) by inhalation every six hours as needed albuterol 108 (90 Base) MCG/ACT inhaler Inhale 2 puffs every 6 hours as needed. 0 03/21/2022 12/31/2022 Discontinued (Reorder) Start: 03-21-2022 take 2 puff(s) by in halation every six hours as needed for wheezing albuterol sulfate HFA (PROVENTIL;VENTOLIN;PROAIR) 108 (90 Base) MCG/ACT inhaler Inhale 2 puffs into the lungs every 6 hours as needed for Wheezing 18 g 3 03/21/2022 Active ALPRAZolam 1 mg oral tablet (6 sources) Benzodiazepine Start: 02-25-2023 Alprazolam 1 mg tablet Active 1 mg .ROUTE .COMPLEX 1 February 25, 2023 12:00am Take 1 tablet x1 orally 30 minutes prior to MRI. amoxicillin 875 mg / clavulanate 125 mg oral tablet (4 sources) Penicillin-class Antibacterial Start: 09-21-2024 Amoxicillin-Pot Clavulanate 875-125 mg tablet Active 1 {tbl} PO Q12H 14 September 21, 2024 12:00am ascorbic acid 500 mg oral tablet (11 sources) Vitamin C take 1 tablet by mouth three times daily vitamin C (ASCORBIC ACID) 500 MG tablet Take 500 mg by mouth 3 times daily 0 Active cephalexin 250 mg oral capsule (5 sources) Cephalosporin Antibacterial Start: 04-08-2023 take 1 capsule by mouth every six hours Cephalexin 250 mg capsule Active 250 mg PO EVERY 6 HOURS April 08, 2023 12:00am cholecalciferol 0.05 mg oral capsule (11 sources) Vitamin D take 1 capsule by mouth once daily Cholecalciferol (VITAMIN D) 2000 units CAPS capsule Take 1 capsule by mouth daily 0 Active diclofenac sodium 75 mg delayed release oral tablet (7 sources) Nonsteroidal Anti-inflammatory Drug Start: 04-22-2024 End: 05-22-2024 take 1 tablet by mouth twice daily diclofenac (Voltaren) 75 MG EC tablet Take 1 tablet (75 mg) by mouth 2 times daily. Do not crush, chew, or split. 60 tablet 04/22/2024 05/22/2024 Active Start: 04-16-2024 End: 04-26-2024 take 1 tablet by mouth twice daily as needed for pain diclofenac (Voltaren) 50 MG EC tablet Take 1 tablet (50 mg) by mouth 2 times daily as needed (Back Pain) for up to 10 days. Do not crush, chew, or split. 20 tablet 04/16/2024 04/22/2024 Discontinued flurbiprofen 100 mg oral tablet (6 sources) Nonsteroidal Anti-inflammatory Drug Start: 02-24-2023 take 1 tablet by mouth three times daily as needed for pain Flurbiprofen 100 mg tablet Active 100 mg PO THREE TIMES A DAY as needed for pain 90 February 24, 2023 12:00am 60 actuat formoterol fumarate 0.005 mg/actuat / mometasone furoate 0.2 mg/actuat metered dose inhaler (20 sources) Corticosteroid, beta2-Adrenergic Agonist Start: 04-09-2023 take 2 puff(s) by inhalation in the morning Dulera 200-5 MCG/ACT inhaler Inhale 2 puffs in the morning and 2 puffs in the evening. Rinse mouth with water after use to reduce aftertaste and incidence of candidiasis. Do not swallow.. 13 g 1 04/09/2023 Active Start: 03-24-2022 take 2 puff(s) by in halation in the morning Dulera 200-5 MCG/ACT inhaler INHALE 2 PUFFS INTO THE LUNGS IN THE MORNING AND 2 PUFFS IN THE EVENING. 0 03/24/2022 Active Start: 03-21-2022 End: 04-20-2022 take 2 puff(s) by inhalation in the morning mometasone-formoterol (DULERA) 200-5 MCG/ACT inhaler Inhale 2 puffs into the lungs in the morning and 2 puffs in the evening. 1 each 5 03/21/2022 04/20/2022 Active lactobacillus acidophilus [id number] unt oral capsule (6 sources) Start: 02-24-2023 take 1 capsule by mouth once daily Lactobacillus Acidophilus (Probiotic Gold Acidophilus) 1 billion cell capsule Active 1000 NMA PO DAILY February 24, 2023 12:00am Magic Mouthwash (MIRACLE MOUTHWASH) (1 source) Start: 11-13-2020 Magic Mouthwas h (MIRACLE MOUTHWASH) Swish and spit 5 mLs 4 times daily as needed for Irritation 1:1:1 concentration 240 mL 0 11/13/2020 Active methocarbamol 750 mg oral tablet (4 sources) Muscle Relaxant Start: 04-22-2024 End: 05-22-2024 take 1 tablet by mouth three times daily as needed for muscle spasms methocarbamol (Robaxin) 750 MG tablet Take 1 tablet (750 mg) by mouth 3 times daily as needed for muscle spasms. 90 tablet 04/22/2024 05/22/2024 Active Mometasone-Formotero l (Dulera) 200-5 mcg/actuation HFA aerosol inhaler (6 sources) Start: 02-24-2023 Mometasone-For moter ol (Dulera) 200-5 mcg/actuation HFA aerosol inhaler Active 2 NMA INHALATION TWICE A DAY February 24, 2023 12:00am Start: 02-24-2023 take 1 puff(s) by in halation twice daily Mometasone-Formoterol (Dulera) 200-5 mcg/actuation HFA aerosol inhaler Active 2 PUFF INHALATION TWICE A DAY February 23, 2023 11:00pm Start: 02-24-2023 take 1 puff(s) by in halation twice daily Mometasone-Formoterol (Dulera) 200-5 mcg/actuation HFA aerosol inhaler Active 2 PUFF INHALATION TWICE A DAY February 24, 2023 12:00am naproxen 500 mg oral tablet (6 sources) Nonsteroidal Anti-inflammatory Drug Start: 08-09-2020 take 1 tablet by mouth twice daily at mealtime naproxen (NAPROSYN) 500 MG tablet Take 1 tablet by mouth 2 times daily (with meals) 14 tablet 0 08/09/2020 Active omeprazole 20 mg delayed release oral capsule (1 source) Proton Pump Inhibitor Start: 11-13-2020 take 1 capsule by mouth once daily omeprazole (PRILOSEC) 20 MG delayed release capsule Take 1 capsule by mouth daily 30 capsule 0 11/13/2020 Active Vit-Fe Fumarate-FA ( VITAMIN PO) (6 sources) take 1 tablet by mouth once daily Vit-Fe Fumarate-FA ( VITAMIN PO) Take 1 tablet by mouth daily 0 Active Probiotic Product (PROBIOTIC-10 ULTIMATE PO) (20 sources) Probiotic Product (PROBIOTIC-10 ULTIMATE PO) Take by mouth. Active Probiotic Produc t (PROBIOTIC-10 ULTIMATE PO) Take by mouth. 0 Active Probiotic Produc t (PROBIOTIC-10 ULTIMATE PO) Take by mouth 0 Active vitamin e d-alpha 400 unt oral capsule (11 sources) take 2 capsules by m outh once daily vitamin E 400 UNIT capsule Take 800 Units by mouth daily 0 Active Completed/Discontinued Medications Medication Drug Class(es) Dates Sig (Normalized) Sig (Original) acetaZOLAMIDE 250 mg oral tablet (14 sources) Carbonic Anhydrase Inhibitor Start: 04-02-2023 End: 04-19-2024 take 1 tablet by mouth twice daily Acetazolamide 250 mg tablet Discontinued 250 mg PO TWICE A DAY 60 June 23, 2023 4:02pm April 19, 2024 4:24pm Collagen (1 source) End: 08-09-2020 COLLAGEN PO Take by mouth 0 08/09/2020 Discontinued (LIST CLEANUP) cyclobenzaprine hydrochloride 10 mg oral tablet (3 sources) Muscle Relaxant Start: 04-16-2024 End: 04-26-2024 take 1 tablet by mouth twice daily as needed for muscle spasms cyclobenzaprine (Flexeril) 10 MG tablet Take 1 tablet (10 mg) by mouth 2 times daily as needed for muscle spasms for up to 10 days. 20 tablet 04/16/2024 04/22/2024 Discontinued (Therapy completed) docusate sodium 100 mg oral capsule (12 sources) Start: 06-03-2021 End: 07-10-2021 docusate sodium (COLACE) 100 MG capsule Take 1 capsule by mouth 2 times daily as needed for Constipation Take 2 times a day as long as you are taking pain medicine or needed for constipation 30 capsule 0 06/03/2021 07/10/2021 Discontinued Start: 05-12-2015 End: 08-09-2020 Docusate Sodium (Colace) 100 MG capsule Discontinued 100 mg PO NEEDED as needed for Constipation May 12, 2015 1:00am June 16, 2015 7:11am gadobutrol (GADAVIST) injection 2 mL (1 source) Start: 10-29-2020 End: 10-29-2020 gadobutrol (GADAVIST) injection 2 mL ibuprofen 600 mg oral tablet (6 sources) Nonsteroidal Anti-inflammatory Drug Start: 01-01-2018 End: 08-09-2020 take 1 tablet by mouth every six hours ibuprofen (ADVIL;MOTRIN) 600 MG tablet Take 1 tablet by mouth every 6 hours 120 tablet 3 01/01/2018 08/09/2020 Discontinued (LIST CLEANUP) take 1 tablet by tushar th every six hours as needed for pain ibuprofen (ADVIL;MOTRIN) 200 MG tablet T amanda 200 mg by mouth every 6 hours as needed for Pain 0 Active iopamidol (ISOVUE-300) 61 % injection 25 mL (1 source) Start: 10-29-2020 End: 10-29-2020 iopamidol (ISOVUE-300) 61 % injection 25 mL 2 ml ketorolac tromethamine 30 mg/ml cartridge (2 sources) Nonsteroidal Anti-inflammatory Drug, Cyclooxygenase Inhibitor Start: 04-16-2024 End: 04-16-2024 inject 60 mg by intramuscular injection once 60 mg, IntraMUSCular, Once, On 04/16/24 at 1805, For 1 dose LORazepam 0.5 mg oral tablet (2 sources) Benzodiazepine Start: 01-15-2023 End: 02-06-2023 LORazepam (Ativan) 0.5 MG tablet Indications: Anxiety One tab tonight and one tab 2 hours before MRI 2 tablet 0 01/15/2023 02/06/2023 Discontinued (Therapy completed) mecobalamin (1 source) Start: 03-18-2023 End: 03-18-2023 Mecobalamin (Vitamin B12) Discontinued 1000 MCG IM .30 DAYS March 17, 2023 11:00pm March 18, 2023 11:23am Mecobalamin (Vitamin B12) 10,000 mcg recon soln (4 sources) Start: 03-18-2023 End: 03-18-2023 Mecobalamin (Vitamin B12) 10,000 mcg recon soln Discontinued 1000 ug IM .30 DAYS March 18, 2023 12:00am March 18, 2023 12:23pm minocycline 100 mg oral capsule (6 sources) Tetracycline-class Drug Start: 04-11-2021 End: 02-24-2023 take 1 capsule by mouth once daily Minocycline 100 mg capsule Discontinued 100 mg PO DAILY April 11, 2021 12:00am February 24, 2023 9:23am ondansetron 4 mg disintegrating oral tablet (5 sources) Serotonin-3 Receptor Antagonist Start: 06-03-2021 End: 07-10-2021 take 1 tablet by mouth every eight hours as needed for nausea ondansetron (ZOFRAN ODT) 4 MG disintegrating tablet Take 1 tablet by mouth every 8 hours as needed for Nausea or Vomiting 5 tablet 0 06/03/2021 07/10/2021 Discontinued 2 ml orphenadrine citrate 30 mg/ml injection (2 sources) Muscle Relaxant Start: 04-16-2024 End: 04-16-2024 inject 60 mg by intramuscular injection once 60 mg, IntraMUSCular, Once, On 04/16/24 at 1805, For 1 dose predniSONE 20 mg oral tablet (6 sources) Start: 04-12-2021 End: 02-24-2023 take 1 tablet by mouth twice daily Prednisone 20 mg tablet Discontinued 20 mg PO TWICE A DAY April 12, 2021 12:00am February 24, 2023 9:24am Vit,[id number] lic (Prenatabs Fa) 1 TABLET tablet (6 sources) Start: 05-12-2015 End: 06-16-2015 take 1 tablet by mouth once daily Vit,[id number] lic (Prenatabs Fa) 1 TABLET tablet Discontinued 1 {tbl} PO DAILY May 12, 2015 1:00am June 16, 2015 7:11am Start: 05-12-2015 End: 06-16-2015 take 1 tablet by mouth once daily Vit,[id number] (Prenatab s Fa) 1 TABLET tablet Discontinued 1 TABLET PO DAILY May 12, 2015 12:00am June 16, 2015 6:11am Start: 05-12-2015 End: 06-16-2015 take 1 tablet by mouth once daily Vit,[id number]-Fytku (Prenatab s Fa) 1 TABLET tablet Discontinued 1 TABLET PO DAILY May 12, 2015 1:00am June 16, 2015 7:11am spironolactone 100 mg oral tablet (20 sources) Aldosterone Antagonist Start: 04-11-2021 End: 04-02-2023 take 1 tablet by mouth once daily Spironolactone 100 mg tablet Discontinued 100 mg PO DAILY April 11, 2021 12:00am April 02, 2023 4:11pm take 4 tablets by mo uth once daily, then take 2 tablets by mouth in the morning, then take 4 tablets by mouth in the evening spironolactone (ALDACTONE) 25 MG tablet Take 100 mg by mouth daily 50mg in the morning and 100mg in the evening 0 Active take 1 tablet by mouth once andrew y spironolactone (ALDACTONE) 25 MG tablet Take 25 mg by mouth daily 0 Active Problems Active Problems Problem Classification Problem Date Documented Date Episodic/Chronic Allergic reactions (20 sources) Allergy status to other antibiotic agents status; Translations: [Other nonmedicinal substance allergy status] Onset: 06-03-2021 Episodic Anxiety disorders (7 sources) Anxiety; Translations: [Anxiety disorder, unspecified] 01-15-2023 Chronic Asthma (20 sources) Mild intermittent asthma; Translations: [Mild intermittent asthma, uncomplicated] Onset: 06-29-2007 03-21-2022 Chronic Blindness and vision defects (6 sources) Blurring of visual image; Translations: [Other visual disturbances] 02-25-2023 Episodic Conditions associated with dizziness or vertigo (8 sources) Vertiginous syndrome; Translations: [Unspecified disorder of vestibular function, unspecified ear] 08-12-2023 Episodic Diseases of mouth; excluding dental (1 source) Painful mouth; Translations: [Other lesions of oral mucosa] Episodic E Codes: Natural/environment (4 sources) Cat bite - wound; Translations: [Bitten by cat, initial encounter] 09-21-2024 Episodic Essential hypertension (10 sources) Essential hypertension; Translations: [Essential (primary) hypertension] Onset: 06-29-2021 02-06-2023 Chronic Headache; including migraine (8 sources) Headache; Translations: [Headache] 02-25-2023 Episodic Immunizations and screening for infectious disease (1 source) Encounter for immunization; Translations: [Encounter for immunization] Onset: 11-07-2024 Episodic Joint disorders and dislocations; trauma-related (1 source) Acetabular labrum tear 04-29-2024 Chronic Malaise and fatigue (8 sources) Fatigue; Translations: [Other fatigue] 03-18-2023 Episodic Open wounds of extremities (1 source) Open bite of right hand, initial encounter; Translations: [Open bite of right hand, initial encounter] Onset: 10-10-2024 Episodic Other connective tissue disease (6 sources) Fibromyalgia; Translations: [Fibromyalgia] 02-25-2023 Episodic Other connective tissue disease (2 sources) Fibromyalgia; Translations: [Myalgia and myositis, unspecified] 02-24-2023 Episodic Other connective tissue disease (1 source) Disorder of tendon; Translations: [Unspecified disorder of synovium and tendon, unspecified thigh] 04-29-2024 Episodic Other connective tissue disease (2 sources) Unspecified disorder of synovium and tendon, unspecified thigh; Translations: [Unspecified disorder of synovium and tendon, unspecified thigh] Onset: 04-29-2024 Episodic Other nervous system disorders (20 sources) Benign intracranial hypertension; Translations: [Benign intracranial hypertension] Onset: 06-29-2017 03-21-2022 Chronic Other nervous system disorders (10 sources) Neuropathy; Translations: [Hereditary and idiopathic neuropathy, unspecified] Onset: 02-06-2023 02-06-2023 Chronic Other nervous system disorders (6 sources) Polyneuropathy; Translations: [Polyneuropathy, unspecified] 02-25-2023 Chronic Other nervous system disorders (2 sources) Benign intracranial hypertension; Translations: [Benign intracranial hypertension] 02-24-2023 Chronic Other nervous system disorders (2 sources) Polyneuropathy, unspecified; Translations: [Unspecified hereditary and idiopathic peripheral neuropathy] 02-24-2023 Chronic Other nervous system disorders (4 sources) Paresthesia of upper limb; Translations: [Paresthesia of skin] Episodic Other non-traumatic joint disorders (1 source) Shoulder pain; Translations: [Acute pain of right shoulder] Episodic Other non-traumatic joint disorders (9 sources) Hip pain; Translations: [Pain in left hip] 04-22-2024 Episodic Other non-traumatic joint disorders (2 sources) Pain in left hip; Translations: [Pain in left hip] Onset: 04-29-2024 Episodic Other nutritional; endocrine; and metabolic disorders (2 sources) Morbid (severe) obesity due to excess calories; Translations: [Morbid (severe) obesity due to excess calories] Onset: 06-03-2021 Chronic Other nutritional; endocrine; and metabolic disorders (2 sources) Body mass index (BMI) 40.0-44.9, adult; Translations: [Body mass index [BMI] 40.0-44.9, adult] Onset: 06-03-2021 Chronic Other nutritional; endocrine; and metabolic disorders (5 sources) Obesity; Translations: [Obesity, unspecified] 04-06-2023 Chronic Other nutritional; endocrine; and metabolic disorders (1 source) Severe obesity; Translations: [Morbid (severe) obesity due to excess calories] Chronic Other screening for suspected conditions (not mental disorders or infectious disease) (2 sources) Abnormal nerve conduction; Translations: [Abnormal response to nerve stimulation, unspecified] 01-01-2023 Episodic Other upper respiratory disease (20 sources) Chronic laryngotracheitis; Translations: [Chronic laryngotracheitis] Onset: 03-21-2022 03-21-2022 Chronic Other upper respiratory disease (1 source) Pain in throat; Translations: [Pain in throat] Episodic Residual codes; unclassified (6 sources) Hypersomnia; Translations: [Hypersomnia, unspecified] 02-25-2023 Chronic Residual codes; unclassified (3 sources) Hypersomnia, unspecified; Translations: [Hypersomnia, unspecified] 02-24-2023 Chronic Residual codes; unclassified (5 sources) Daytime hypersomnia; Translations: [Hypersomnia, unspecified] 04-06-2023 Chronic Skin and subcutaneous tissue infections (6 sources) Cellulitis and abscess of lower limb; Translations: [Cellulitis of unspecified part of limb] 04-08-2023 Episodic Spondylosis; intervertebral disc disorders; other back problems (6 sources) Lumbar spondylosis; Translations: [Degeneration of lumbar intervertebral disc] Onset: 04-22-2024 04-22-2024 Chronic Spondylosis; intervertebral disc disorders; other back problems (17 sources) Lumbar radiculopathy; Translations: [Radiculopathy, lumbar region] Onset: 04-16-2024 Episodic Sprains and strains (11 sources) Glenoid labrum tear; Translations: [Superior glenoid labrum lesion of right shoulder, initial encounter] Onset: 05-14-2021 Resolved: 03-21-2022 06-03-2021 Episodic Substance-related disorders (2 sources) Nicotine dependence, unspecified, uncomplicated; Translations: [Nicotine dependence, unspecified, uncomplicated] Onset: 06-03-2021 Chronic Unclassified (1 source) Cough, unspecified; Translations: [Cough, unspecified] Onset: 03-21-2022 Unclassified (1 source) Low back pain, unspecified; Translations: [Low back pain, unspecified] Onset: 04-22-2024 Unclassified (1 source) Other intervertebral disc degeneration, lumbar region with discogenic back pain and lower extremity pain; Translations: [Other intervertebral disc degeneration, lumbar region with discogenic back pain and lower extremity pain] Onset: 04-22-2024 Past or Other Problems Problem Classification Problem Date Documented Date Episodic/Chronic Cardiac dysrhythmias (12 sources) Palpitations; Translations: [Palpitations] Onset: 11-16-2017 Resolved: 01-01-2018 01-01-2018 Episodic Hemorrhage during ; abruptio placenta; placenta previa (12 sources) Placenta previa; Translations: [Complete placenta previa NOS or without hemorrhage, second trimester] Onset: 12-14-2017 Resolved: 01-01-2018 01-01-2018 Episodic Other circulatory disease (20 sources) Labile systemic arterial hypertension; Translations: [Other [...] 01-01-2018 01-01-2018 Episodic Other lower respiratory disease (20 sources) Cough; Translations: [Cough] Onset: 03-21-2022 Episodic Other nervous system disorders (3 sources) Tactile hypesthesia; Translations: [Hypoesthesia of skin] Episodic Other non-traumatic joint disorders (7 sources) Instability of right shoulder joint; Translations: [Other instability, right shoulder] Onset: 05-14-2021 Resolved: 03-21-2022 Episodic Other nutritional; endocrine; and metabolic disorders (12 sources) Body mass index 30+ - obesity; Translations: [Obesity, unspecified] Onset: 01-01-2018 Resolved: 03-21-2022 01-01-2018 Chronic Other conditions (4 sources) Abnormal heart rate; Translations: [Abnormal heart rate] Onset: 12-04-2017 Resolved: 12-30-2017 12-30-2017 Episodic Other skin disorders (2 sources) Acne, unspecified; Translations: [Acne, unspecified] Onset: 06-03-2021 Episodic Other skin disorders (20 sources) Acne; Translations: [Acne, unspecified] Onset: 05-02-2022 05-02-2022 Episodic Polyhydramnios and other problems of amniotic cavity (12 sources) premature rupture of membranes ; Translations: [ premature rupture of membranes, unspecified as to length of time between rupture and onset of labor, unspecified trimester] Resolved: 01-01-2018 01-01-2018 Episodic Residual codes; unclassified (20 sources) Family history of diabetes mellitus in first degree relative; Translations: [Family history of diabetes mellitus] Onset: 05-02-2022 05-02-2022 Episodic Umbilical cord complication (12 sources) Prolapse of cord; Translations: [Labor and delivery complicated by prolapse of cord, not applicable or unspecified] Onset: 12-30-2017 Resolved: 01-01-2018 01-01-2018 Episodic Unclassified (2 sources) Abnormal heart rate; Translations: [Abnormal heart rate] Onset: 12-04-2017 Resolved: 12-30-2017 12-30-2017 Unclassified (6 sources) Finding of heart rate; Translations: [Abnormal heart rate] Onset: 12-04-2017 Resolved: 12-30-2017 12-30-2017 Unclassified (1 source) Cough, unspecified; Translations: [Cough, unspecified] Onset: 03-21-2022 Unclassified (1 source) Patient encounter status; Translations: [Full-term ] 03-18-2023 Unclassified (1 source) Low back pain, unspecified; Translations: [Low back pain, unspecified] Onset: 04-22-2024 Unclassified (1 source) Other intervertebral disc degeneration, lumbar region with discogenic back pain and lower extremity pain; Translations: [Other intervertebral disc degeneration, lumbar region with discogenic back pain and lower extremity pain] Onset: 04-22-2024 Results Test Name Value Interpretation Reference Range Facility Emergency Department Summary on 09-21-2024 Emergency Department Summary [facility] Medical Records Department [address] [place] [address] Emergency Department Summary 09/21/24 MR#: [id number] Acct: [id number] Name: CHERYL WOOD Rep #: [id number] : 1990 34 From: Abhi Cooper DO PCP: Care Physician,No Primary Status:REG ER Location: ED HPI History of Present Illness Chief Complaint: Bite Narrative Narrative: Patient is a 34-year-old female with no known significant past medical history who presents to the emergency department with a chief complaint of cat bite to the right hand. Patient states that she is unsure of the cats rabies vaccine status. They know that the cat had vaccine in the past but does not know the current state. 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 She states that she was concerned as they owners the cat took it with them and is unsure if they will get the rabies testing or not and is requesting the rabies vaccine here in the emergency department. Patient states that she does not know when her last tetanus shot was. [facility] Medical History Fatigue delivery delivered Home Medications ???Medication ???Instructions ???Recorded ???Last Taken ???Type Lactobacillus acidophilus 1 1,000 mmu cells PO DAILY 02/24/23 Unknown History billion cell capsule (Probiotic Gold Acidophilus) albuterol sulfate 90 mcg/actuation 2 puff inhalation Q6H PRN Unknown History aerosol inhaler flurbiprofen 100 mg tablet 100 mg PO TID PRN pain #90 tabs Unknown Rx mometasone-formoterol HFA 200 2 puff inhalation BID 02/24/23 Unk nown History mcg-5 mcg/actuation aerosol inhaler (Dulera) alprazolam 1 mg tablet 1 mg .Route .COMPLEX #1 TAB Unknown Rx cephalexin 250 mg capsule 250 mg PO Q6H #28 caps 04/08/23 Un known Rx acetazolamide 250 mg tablet 250 mg PO BID #60 tabs 04/19/24 Un known Rx Allergy/AdvReac Type Severity Reaction Status Date / Time minocycline AdvReac Severe Hives Verified 09/21/24 18:36 Surgical History Status post labral repair of shoulder Social History Smoking Status: Current some day smoker tobacco type: cigarettes ROS ROS ED ROS Narrative Constitutional: Denies fevers, chills, headaches Neurological: Denies numbness, weakness, tingling Skin: Complains of cat bite to the right hand as noted above EXAM Physical Exam Narrative Exam Narrative: General: Patient l sitting at bedside in chair did not appear to be in acute distress Head: Atraumatic, normocephalic Eyes: PERRL bilaterally, EOMI bilateral, no conjunctival injection noted Neck: Soft, supple, trachea midline Cardiovascular: Regular rate and rhythm no murmurs gallops rubs noted Extremities: +5/5 strength noted in bilateral upper and lower extremities, radial pulse +2/4 in the bilateral extremities Neurological: Patient follow commands that she was at [facility] year is 2024. Sensation grossly intact in the median ulnar radial nerve distributions bilaterally Skin: Patient has small abrasions to the right hand and the index and middle finger no active bleeding noted Const Vital Signs: 09/21/24 18:33 Temperature 97.6 F L Temperature Source Temporal Pulse Rate 79 Respiratory Rate 15 Blood Pressure 134/99 H Blood Pressure Mean 110 Pulse Ox 99 Oxygen Delivery Method Room Air MDM MDM MDM Narrative Medical decision making narrative: Patient is a 34-year-old female who presented to the emerged part with a concern for being bitten by a cat and wanting the rabies vaccine series. This will be ordered. Patient's tetanus shot will be updated. I ordered an x-ray of her hand and she is refusing this I advised her that there is a chance we are missing a retained foreign body in her hand she verbalized understanding of this and understand that this is placing her at high risk for infection even more so if there is a retained foreign body however she still does not want the hand x-ray. Patient was given the rabies vaccine as well as tetanus shot was updated she was given her first dose of Augmentin here in the emergency department. Patient be on prescription for Augmentin and was advised to watch out for signs infection while on the antibiotic such as surrounding redness or purulent drainage for this is to occur she was advised to return to the emergency department. She was advised to follow-up with corporate care. She is encouraged to return with any other concerns she is agreeable this plan all question concerns answered she was discharged home in stable co (more content not included)... Normal [facility] 37on 04-29-2024 37 Pick 2-4 of these exercises and begin doing them daily. The next day, pick a different 2-4 exercises, so at the end of the week you have completed most of them on the list. The second to last exercise, the single leg squat, also known as a pistol, is the most difficult one on the list a few never get to this exercise that's okay. All of these exercises can also be modified to decrease the difficulty level. It's okay to start off easy and gradually make them more difficult as her core strength increases. Normal [facility] Office Visiton 04-29-2024 Follow-up visit [id number] Cheryl Wood 1990 F Date Provider Department Center 04/29/2024 [id number] IZQUIERDO MG SM WAD None Family History Problem Relation Age of Onset No Known Problems Mother Comments: ([employer] LOADER at [employer]) Heart disease Father COPD Father Comments: smoker Diabetes Father No Known Problems Sister No Known Problems Sister No Known Problems Brother No Known Problems Daughter Premature Daughter Cancer Father's Brother Comments: Lung Multiple sclerosis Maternal Grandmother Lung cancer Maternal Grandmother Eye cancer Maternal Grandfather Diabetes Maternal Grandfather Kidney disease Maternal Grandfather Pancreatic cancer Maternal Grandfather Emphysema Paternal Grandmother Prostate cancer Paternal Grandfather Family Status - Relation Status Age at Mother Alive Father Alive Sister Alive Sister Alive Brother Alive Daughter Alive Daughter Alive Father's Brother Alive Maternal Grandmother Maternal Grandfather Paternal Grandmother Paternal Grandfather Alive Level of Service:31299 [place] OFFICE/OUTPATIENT NEW LOW MDM 30 MINUTES Reason for Visit and Comments: New Patient [542] Hip Pain [146224] - Left Normal [facility] Progress Noteon 04-29-2024 Progress Note [facility] [place] [address] [place] [address] [place] [address] Dept: [phone] Dept Chief Complaint Patient presents with New Patient Hip Pain Left Subjective History of Present Illness: Cheryl Wood is a 33 y.o. female who presents today for evaluation of left hip pain. Location: lateral, medial, posterior, and deep Onset: 1 year, chronic Injury: 10 years ago she strained her hip flexor Quality: aching, throbbing, sharp, and stabbing Mechanical symptoms: popping, crepitus, grinding, catching, and locking Radiation of symptoms: yes - into her left knee Severity: 0/10 at rest and 7/10 at worst Exacerbating factor(s): repetitive use and sitting on the ground, sitting style, getting on the bed with one leg with one leg bent Relieving factor(s): diclofenac Timing: depends on how she is sitting Imaging to date: X-ray April 2024 Treatment to date: PT/OT/HEP: no but she has for her back and shoulder Ice: no Heat: no Medications: Tylenol: no NSAIDs: yes, Ibuprofen/Motrin/Advil and Diclofenac/Voltaren, helpful Oral steroids: no Muscle relaxants: flexeril, and robaxin but she hasn't taken it Nerve medications: no Targeted injections: none Assistive devices: none Prior surgery: no 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 Respiratory: Breathing comfortably on room air. No respiratory distress. Skin: Warm, dry, intact. No visible rashes or erythema overlying area of focused exam. Physical Exam Musculoskeletal: Left hip: Tenderness present. Decreased range of motion. Decreased strength. Comments: Positive Andreea, positive FADIR, weakness with iliopsoas, weakness with gluteus medius, External Notes No pertinent interval updates Labs Lab Results Component Value Date HGBA1C 4.9 08/01/2022 Lab Results Component Value Date CREATININE 1.11 (H) 08/01/2022 Imaging Images reviewed with patient today I have personally reviewed the images pertinent to the appointment today EMG/NCT No interval studies Procedure No procedures completed today Assessment Diagnosis Plan 1. Tear of left acetabular labrum, initial encounter Ambulatory referral to Physical Therapy 2. Left hip pain XR hip left 2 or 3 views [facility] Ambulatory referral to Physical Therapy 3. Tendinopathy of gluteus medius Plan -Discussed with the patient the nature of hip labral tear pathology. -Discussed hip imaging results with patient. -Discussed options for activity modification. -Discussed possible treatment modalities including relative rest, home exercise program, formal physical therapy, anti-inflammatories, Tylenol, surgery.. -Questions answered. -Written patient information provided in the AVS. -We will proceed with course of formal physical therapy. If symptoms are unresponsive we will follow-up and have her obtain an MRI to further evaluate the extent of her labral tear for possible surgical planning. Performed per above procedure note. -Will prescribe PT. No follow-ups on file. Shay Izquierdo MD 04/29/2024 1:15 PM Please note that portions of this note may have been completed with voice recognition software. Documentation reviewed prior to signing but minor errors in harp action assembler may have occurred. Normal [facility] 37on 04-22-[address] [place] [address] [address] [place] [address] Call central scheduling to schedule new patient appointment [phone] [facility] Office Visiton 04-22-2024 Follow-up visit [id number] Cheryl Wood 1990 F Date Provider Department Center 04/22/2024 JASON HAYES [facility] [place] None Family History Problem Relation Age of Onset No Known Problems Mother Comments: ([employer] LOADER at [employer]) Heart disease Father COPD Father Comments: smoker Diabetes Father No Known Problems Sister No Known Problems Sister No Known Problems Brother No Known Problems Daughter Premature Daughter Cancer Father's Brother Comments: Lung Multiple sclerosis Maternal Grandmother Lung cancer Maternal Grandmother Eye cancer Maternal Grandfather Diabetes Maternal Grandfather Kidney disease Maternal Grandfather Pancreatic cancer Maternal Grandfather Emphysema Paternal Grandmother Prostate cancer Paternal Grandfather Family Status - Relation Status Age at Mother Alive Father Alive Sister Alive Sister Alive Brother Alive Daughter Alive Daughter Alive Father's Brother Alive Maternal Grandmother Maternal Grandfather Paternal Grandmother Paternal Grandfather Alive Level of Service:16694 [place] OFFICE/OUTPATIENT NEW MODERATE MDM 45 MINUTES Reason for Visit and Comments: 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 Progress Noteon 04-22-2024 Progress Note [facility] [place] [address] [facility] [address] [facility] [address] Dept: [phone] Dept Cheryl Wood 1990 [id number] 04/22/2024 Problem List: Lumbar pain Lumbar radiculopathy, left Lumbar spondylosis Lumbar degenerative disc disease Left hip pain (M54.50) Lumbar pain (M54.16) Lumbar radiculopathy (M47.816) Lumbar spondylosis (M51.362) Degeneration of intervertebral disc of lumbar region with discogenic back pain and lower extremity pain (M25.552) Left hip pain Chief Complaint 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 female who is here today for evaluation of her lumbar spine. Cheryl is referred by Gissel Hernandez PA-C Current symptoms: Pain is located in the left lumbar area, left gluteal area, or across the lower back that is radiating Posterior, to gastroc . Numbness tingling: yes - in gluteal and down leg Weakness: affirms JACE: lifting a heavy object; basement door, metal Duration of symptoms/DOI: 6 month(s), pain exacerbated this week, when she went to open a [employer] 4U basement door, and was stuck. Symptoms are moderately affecting their quality of life. Associated neurologic complaints/Red flags: Gait/balance difficulty: admits to feeling wobbly Use of ambulatory aid?: no device Able to walk a city block: Yes Bowel/bladder incontinence: denies Urinary retention: No Saddle anesthesia: Yes Fine motor task difficulty/dropping things/handwriting changes: denies History of cancer: No Aggravating factors: increased intrathoracic pressure (cough, sneeze, etc.), sitting, walking, and laying supine Alleviating Factors: OTC NSAIDS Do your symptoms improve with lying on your back or side: get worse supine, sleeps on right side Previous Treatment: PT: No NSAIDS: Diclofenac (Voltaren) Injections: No Opioid medications: none Muscle relaxers: cyclobenzaprine (Flexeril) Oral steroids: none Nerve medications (gabapentin/Lyrica): none Pain management: No Chiropractor: No Previous spine surgery: None History of DVT/PE or hypercoagulable state (including history of relative): No Blood thinning medications: none Work Status: [employer], 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 Is this a work related injury? No Review of Systems Tobacco Use: High Risk (03/19/2023) Patient History Smoking Tobacco Use: Some Days Smokeless Tobacco Use: Never Passive Exposure: Not on file Lab Results Component Value Date HGBA1C 4.9 08/01/2022 Allergies Allergen Reactions Minocycline Hives Hives swelling Nickel Current Outpatient Medications Medication Sig Dispense Refill adapalene (Differin) 0.3 % gel albuterol 108 (90 Base) MCG/ACT inhaler inhale 2 puffs every 6 hours if needed for shortness of breath or wheezing 8.5 g 2 Dulera 200-5 MCG/ACT inhaler Inhale 2 puffs in the morning and 2 puffs in the evening. Rinse mouth with water after use to reduce aftertaste and incidence of candidiasis. Do not swallow.. 13 g 1 Probiotic Product (PROBIOTIC-10 ULTIMATE PO) Take by mouth. diclofenac (Voltaren) 75 MG EC tablet Take 1 tablet (75 mg) by mouth 2 times daily. Do not crush, chew, or split. 60 tablet 0 methocarbamol (Robaxin) 750 MG tablet Take 1 tablet (750 mg) by mouth 3 times daily as needed for muscle spasms. 90 tablet 0 spironolactone (Aldactone) 100 MG tablet Take 1 tablet (100 mg) by mouth daily for 30 doses. 30 tablet 5 No current facility-administered medications for this visit. Past Medical History: Diagnosis Date Acne Aldactone therapy Essential hypertension 2021 Family history of diabetes mellitus in father Fracture of distal end of tibia Idiopathic neuropathy 02/06/2023 Recurrent symptoms. Unsure of etiology. Await neurology consultation Labile hypertension 2020 Mild intermittent asthma without complication 2007 Perfume and cold air triggers Pseudotumor cerebri 2018 post papilledema,- neg MRI head and LP- ophtho workup at [facility] Rh incompatibility Smoker socially Past Surgical History: Procedure Laterality Date SECTION (HISTORICAL) SECTION (HISTORICAL) DENTAL SURGERY SHOULDER ARTHROSCOPY W/ LABRAL REPAIR Right 05/2021 Dr. Brown Social History Socioeconomic History Marital status: Single Spouse name: Not on file Number of children: Not on file Years of education: Not on file Highest education level: Not on file Occupational History Not on file Tobacco Use Smoking status: Some Days Current packs/day: 0.50 Types: Cigarettes Smokeless tobacco: Never Substance and Sexual Activity Alcohol use: Yes Alcohol/week: 3.0 standard drinks of alcohol Drug use: No Sexual activity: Not on file Other Topics Concern Not on file Social History Narrative Single, live in [facility] [place] [facility], has 2 dtrs and raising Nephew , occasional smoker, no ETOH use, 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 Normal [facility] XR LUMBAR SPINE 4-5 VIEWon 1 XR LUMBAR SPINE 4-5 VIEW There is no aortic calcification noted. The bilateral hip joint spaces are observed with no significant degenerative changes noted. The bilateral SI joints are also observed with no significant degenerative changes noted. There is no loss of lumbar lordosis. There are five non rib-bearing lumbar vertebrae. Vertebral body heights maintained throughout the lumbar spine. There is no acute fracture or bony abnormality noted. Disc space is well maintained with mild degenerative changes at L5- S1. There are mild spondylitic changes and facet arthropathy noted. There is no listhesis noted on flexion/extension radiographs. Normal [facility] ED Nursing Noteon 04-16-2024 ED Nursing Note Clarified with Gissel Bass that 60mg toradol to be given and dosage was verified Laura Mack, RN 04/16/[address] [facility] ED Nursing Note Pt c.o lower back pa in radiating down L leg, states the pain worsened when she opened a door today Normal [facility] ED Provider Noteon ED Provider Note [facility] ED eMERGENCY dEPARTMENT eNCOUnter Pt Name: Cheryl Wood Birthdate 1990 Date of evaluation: 04/16/2024 Provider: Gissel Hernandez PA-C CHIEF COMPLAINT Chief Complaint Patient presents with Back Pain HISTORY OF PRESENT ILLNESS (Location/Symptom, Timing/Onset,Context/Sett ing, Quality, Duration, Modifying Factors, Severity) Note limiting factors. HPI Cheryl Wood is a 33 y.o. female who presents to the emergency department complaining of severe low back pain with left-sided leg pain that goes from the hip to the ankle and now pain in the right hip and thigh as well. She states she has been having a problem with the pain for a few weeks but today she tried to open the cell or do worse and had immediate increase in pain with the pain going down the right side as well. No loss of bowel or bladder control or urinary retention. No saddle paresthesias. She tried some [id number] medications with no relief of her symptoms. Nursing Notes were reviewed. REVIEW OF SYSTEMS (2+ for4; 10+ for level 5) Review of Systems Constitutional: Negative for chills and fever. HENT: Negative for ear pain and sore throat. Eyes: Negative for pain and visual disturbance. Respiratory: Negative for cough and shortness of breath. Cardiovascular: Negative for chest pain and palpitations. Gastrointestinal: Negative for abdominal pain and vomiting. Genitourinary: Negative for dysuria and hematuria. Musculoskeletal: Positive for back pain. Negative for arthralgias. Skin: Negative for color change and rash. Neurological: Negative for seizures and syncope. All other systems reviewed and are negative. PAST MEDICAL HISTORY Past Medical History: Diagnosis Date Acne Aldactone therapy Essential hypertension 2021 Family history of diabetes mellitus in father Fracture of distal end of tibia Idiopathic neuropathy 02/06/2023 Recurrent symptoms. Unsure of etiology. Await neurology consultation Labile hypertension 2020 Mild intermittent asthma without complication 2007 Perfume and cold air triggers Pseudotumor cerebri 2018 post papilledema,- neg MRI head and LP- ophtho workup at [facility] Rh incompatibility Smoker socially SURGICALHISTORY Past Surgical History: Procedure Laterality Date SECTION (HISTORICAL) SECTION (HISTORICAL) DENTAL SURGERY SHOULDER ARTHROSCOPY W/ LABRAL REPAIR Right 05/2021 Dr. Brown CURRENT MEDICATIONS Discharge Medication List as of 04/16/2024 6:03 PM CONTINUE these medications which have NOT CHANGED Details adapalene (Differin) 0.3 % gel Starting 01/26/2023, Historical Med albuterol 108 (90 Base) MCG/ACT inhaler inhale 2 puffs every 6 hours if needed for shortness of breath or wheezing, Normal Dulera 200-5 MCG/ACT inhaler Inhale 2 puffs in the morning and 2 puffs in the evening. Rinse mouth with water after use to reduce aftertaste and incidence of candidiasis. Do not swallow.., Starting Shell 04/09/2023, Normal Probiotic Product (PROBIOTIC-10 ULTIMATE PO) Take by mouth., Historical Med spironolactone (Aldactone) 100 MG tablet Take 1 tablet (100 mg) by mouth daily for 30 doses., Starting Thu02/06/2023, Until Thu03/08/2023, Normal Minocycline and Nickel FAMILY HISTORY Family History Problem Relation Name Age of Onset No Known Problems Mother Gael More ([employer]ATO LOADER at [employer]) Heart disease Father Sae COPD Father Sae smoker Diabetes Father Sae No Known Problems Sister No Known Problems Sister No Known Problems Brother No Known Problems Daughter Premature Daughter Cancer Father's Brother Lung Multiple sclerosis Maternal Grandmother Lung cancer Maternal Grandmother Eye cancer Maternal Grandfather Diabetes Maternal Grandfather Kidney disease Maternal Grandfather Pancreatic cancer Maternal Grandfather Emphysema Paternal Grandmother Prostate cancer Paternal Grandfather SOCIAL HISTORY Social History Socioeconomic History Marital status: Single Tobacco Use Smoking status: Some Days Current packs/day: 0.50 Types: Cigarettes Smokeless tobacco: Never Substance and Sexual Activity Alcohol use: Yes Alcohol/week: 3.0 standard drinks of alcohol Drug use: No Social History Narrative Single, live in [facility] [place], has 2 dtrs and raising Nephew , occasional smoker, no ETOH use, 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 Overall Financial Resource Strain (CARDIA) Difficulty of Paying Living Expenses: Not hard at all Food Insecurity: No Food Insecurity (03/21/2022) Received from [facility] Hunger Vital Sign Worried About Running Out of Food in the Last Year: Never true Ran Out of Food in the Last Year: Never true Transportation Needs: N (more content not included)... Normal [facility] Basophil percentageOrdered B y: Herberth Steele on 06-26-2023 Chloride [Moles/Vol] 108 mmol/L 98-[address] [facility] Glucose [Mass/Vol] 88 mg/dL 74-106 [facility] Potassium [Moles/Vol] 3.8 mmol/L 3.5-5.1 [facility] Sodium [Moles/Vol] 136 mmol/L 136-145 [facility] Laboratory - Chemistry and C hemistry - challengeOrdered By: Herberth Steele on 06-26-2023 CO2 [Moles/Vol] 23.0 mmol/L 21.0-32.0 [facility] Urea nitrogen/Creatinine [Mass ratio] 14.4 mg/mg 10-20 [facility] No Panel InformationOrdered By: Herberth Steele on 06-26-2023 Estimated GFR (MDRD) Amer 84 mL/min >60 [facility] Comment on above: GFR Calc Estimated GFR (MDRD) Non-Af Amer 70 mL/min >60 [facility] Comment on above: Non- GFR Calc Serum or plasma calcium sameer urement (mass/volume)Ordered By: Herberth Steele on 06-26-2023 Calcium [Mass/Vol] 9.0 mg/dL 8.5-10.1 [facility] Serum or plasma creatinine m easurement (mass/volume)Ordered By: Herberth Steele on 06-26-2023 Creatinine [Mass/Vol] 0.97 mg/dL 0.55-1.02 [facility] Comment on above: The validity of the calculated GFR & GFRAA in patients over 70 years has not been determined. Clinical correlation is essential. Serum or plasma urea nitroge n measurement (mass/volume)Ordered By: Herberth Steele on 06-26-2023 Urea nitrogen [Mass/Vol] 14 mg/dL 7-18 [facility] Thin prep Papanicolaou smear with manual screeningOrdered By: Herberth Steele on 06-26-2023 Thin prep Papanicolaou smear with manual screening 5 5-15 [facility] Basophil percentageOrdered B y: Herberth Steele on 03-27-2023 Creatinine [Mass/Vol] 1.2 mg/dL 0.55-1.02 [facility] Laboratory - Chemistry and C hemistry - challengeOrdered By: Herberth Steele on 03-27-2023 GFR/1.73 sq M.predicted among non-blacks MDRD (S/P/Bld) [Vol rate/Area] 57.0000 mL/min/{1.73_m2} >60 [facility] Basophil percentageOrdered B y: Herberth Steele on 02-27-2023 Bilirubin [Mass/Vol] 0.70 mg/dL 0.20-1.[address] [facility] Comment on above: For patients on eltr ombopag therapy, use of Dimension [place] TBIL is not recommended. Chloride [Moles/Vol] 105 mmol/L 98-[address] [facility] Glucose [Mass/Vol] 101 mg/dL 74-106 [facility] Comment on above: Fasting Glucose resu lt from 100 to 125 mg/dL suggests IMPAIRED HOMEOSTASIS per A.D.A. criteria. Potassium [Moles/Vol] 4.1 mmol/L 3.5-5.1 [facility] Protein [Mass/Vol] 7.4 g/dL 6.4-8.2 [facility] Sodium [Moles/Vol] 136 mmol/L 136-145 [facility] WBC (Bld) [#/Vol] 7.7 10*3/uL 4.4-11.0 [facility] Blood erythrocytes count (nu mber/volume)Ordered By: Herberth Steele on 02-27-2023 RBC (Bld) [#/Vol] 4.70 10*6/uL 4.2-5.4 [facility] Blood hemoglobin measurement (mass/volume)Ordered By: Herberth Steele on 02-27-2023 Hemoglobin (Bld) [Mass/Vol] 15.0 g/dL 12.0-15.0 [facility] Blood platelet mean volumeOr dered By: Herberth Steele on 02-27-2023 Platelet mean volume (Bld) [Entitic vol] 10.3 fL 6.2-12.0 [facility] Determination of erythrocyte mean corpuscular volume (MCV)Ordered By: Herberth Steele on 02-27-2023 MCV (RBC) [Entitic vol] 92.3 fL 81-99 [facility] Hematocrit Auto (Bld) [Volum e fraction]Ordered By: Herberth Steele on 02-27-2023 Hematocrit (Bld) [Volume fraction] 43.4 % 37-47 [facility] Laboratory - Chemistry and C hemistry - challengeOrdered By: Herberth Steele on 02-27-2023 ALP [Catalytic activity/Vol] 78 U/L 45-117 [facility] ALT [Catalytic activity/Vol] 24 U/L 13-56 [facility] CO2 [Moles/Vol] 23.0 mmol/L 21.0-32.0 [facility] Cobalamin (Vitamin B12) [Mass/Vol] 243 pg/mL 211-911 [facility] Globulin (S) [Mass/Vol] 3.7 g/dL 2.2-4.2 [facility] Urea nitrogen/Creatinine [Mass ratio] 14.2 mg/mg 10-20 [facility] Laboratory - Hematology and Cell countsOrdered By: Herberth Steele on 02-27-2023 Erythrocyte distribution width (RBC) [Entitic vol] 38.7 fL 35.1-43.9 [facility] Erythrocyte distribution width (RBC) [Ratio] 11.3 % 11.6-14.6 [facility] MCH (RBC) [Entitic mass] 31.9 pg 27.0-32.0 [facility] MCHC Auto (RBC) [Mass/Vol]Or dered By: Herberth Steele on 02-27-2023 MCHC (RBC) [Mass/Vol] 34.6 g/dL 32-36 [facility] No Panel InformationOrdered By: Herberth Steele on 02-27-2023 Estimated GFR (MDRD) Amer 71 mL/min >60 [facility] Comment on above: GFR Calc Estimated GFR (MDRD) Non-Af Amer 59 mL/min >60 [facility] Comment on above: Non- GFR Calc Free Lambda Light Chains, Quant Not Reportable [facility] Thyroid Stimulating Hormone (TSH) 1.32 uIU/mL 0.358-3.74 [facility] Whole Blood Vitamin B1 Level 111.8 nmol/L 66.5-200.0 [facility] Comment on above: Performed at: - [id number] [place], [place] [id number] Director: Jacy Cook MD, Phone: [phone] Platelets bldOrdered By: Maxi Steele on 02-27-2023 Platelets (Bld) [#/Vol] 310 10*3/uL 150-450 [facility] Serum immunoglobulin kappa l ight chains/immunoglobulin lambda light chains mass ratioOrdered By: Herberth Steele on 02-27-2023 Immunoglobulin light chains.kappa/Immunoglob ulin light chains.lambda (S) [Mass ratio] Not Reportable [facility] Serum or plasma albumin sameer urement (mass/volume)Ordered By: Herberth Steele on 02-27-2023 Albumin [Mass/Vol] 3.7 g/dL 3.2-5.0 [facility] Serum or plasma albumin/glob ulin mass ratioOrdered By: Herberth Steele on 02-27-2023 Albumin/Globulin [Mass ratio] 1.0 {ratio} 0.9-2.4 [facility] Serum or plasma calcium sameer urement (mass/volume)Ordered By: Herberth Steele on 02-27-2023 Calcium [Mass/Vol] 8.9 mg/dL 8.5-10.1 [facility] Serum or plasma creatinine m easurement (mass/volume)Ordered By: Herberth Steele on 02-27-2023 Creatinine [Mass/Vol] 1.13 mg/dL 0.55-1.02 [facility] Comment on above: The validity of the calculated GFR & GFRAA in patients over 70 years has not been determined. Clinical correlation is essential. Serum or plasma folate measu rement (mass/volume)Ordered By: Herberth Steele on 02-27-2023 Folate [Mass/Vol] 20.90 ng/mL 3.1-55.4 [facility] Serum or plasma immunoglobul in kappa light chains measurement (mass/volume)Ordered By: Herberth Steele on 02-27-2023 Immunoglobulin light chains.kappa [Mass/Vol] See comment [facility] Comment on above: TEST RESULTS LIMITSF ree K+L Lt Chains,Qn,SFree [place] Lt Chains,S 15.4 mg/L 3.3-19.4Free Lambda Lt Chains,S 15.9 mg/L 5.7-26.3Kappa/Lambda Ratio,S 0.97 0.26-1.65 TESTING PERFORMED AT [facility]. ORIGINAL REPORT ON FILE IN LAB CONTAINS ADDITIONAL TEST SITE INFORMATION. Serum or plasma urea nitroge n measurement (mass/volume)Ordered By: Herberth Steele on 02-27-2023 Urea nitrogen [Mass/Vol] 16 mg/dL 7-18 [facility] Thin prep Papanicolaou smear with manual screeningOrdered By: Herberth Steele on 02-27-2023 Thin prep Papanicolaou smear with manual screening 17 U/L 15-37 [facility] Thin prep Papanicolaou smear with manual screening 8 5-15 [facility] Comprehensive metabolic 1998 panelon 08-02-2022 Albumin [Mass/Vol] 4.4 g/dL 3.6 - 5.1 g/dL [facility] ALP [Catalytic activity/Vol] 73 U/L 31 - 125 U/L [facility] ALT [Catalytic activity/Vol] 15 U/L 6 - 29 U/L [facility] Anion gap [Moles/Vol] 6 mmol/L Low [facility] AST [Catalytic activity/Vol] 19 U/L 10 - 30 U/L [facility] Bilirubin [Mass/Vol] 0.6 mg/dL 0.2 - 1 .2 mg/dL [facility] Calcium [Mass/Vol] 9.5 mg/dL 8.6 - 10. 2 mg/dL [facility] Chloride [Moles/Vol] 101 mmol/L 98 - 11 0 mmol/L [facility] CO2 [Moles/Vol] 28 mmol/L 20 - 32 mmol/L [facility] Creatinine [Mass/Vol] 1.11 mg/dL High 0.50 - 0.97 mg/dL [facility] GFR/1.73 sq M.predicted among non-blacks MDRD (S/P/Bld) [Vol rate/Area] 67 mL/min/{1.73_m2} > OR = 60 mL/min/1.7 3m2 [facility] Comment on above: The eGFR is based on the CKD-EPI 2020 equation. To calculate the new eGFR from a previous Creatinine or Cystatin C result, go to https://www.kidney.org/professionals/ kdoqi/gfr%5Fcalculator Glucose [Mass/Vol] 92 mg/dL 65 - 99 mg/dL [facility] Comment on above: Fasting reference interval Interpretation and review of laboratory results Abnormal [facility] Potassium [Moles/Vol] 4.9 mmol/L 3.5 - 5.3 mmol/L [facility] Protein [Mass/Vol] 7.3 g/dL 6.1 - 8.1 g/dL [facility] Sodium [Moles/Vol] 135 mmol/L 135 - 146 mmol/L [facility] Urea nitrogen [Mass/Vol] 18 mg/dL 7 - 25 mg/dL [facility] Hemoglobin A1con 08-02-2022 HbA1c (Bld) [Mass fraction] 4.9 % NINF [facility] Comment on above: For the purpose of s creening for the presence of diabetes: <5.7% Consistent with the absence of diabetes 5.7-6.4% Consistent with increased risk for diabetes (prediabetes) > or =6.5% Consistent with diabetes This assay result is consistent with a decreased risk of diabetes. Currently, no consensus exists regarding use of hemoglobin A1c for diagnosis of diabetes in children. According to [place] Diabetes Association (ADA) guidelines, hemoglobin A1c <7.0% represents optimal control in non- diabetic patients. Different metrics may apply to specific patient populations. Standards of Medical Care in Diabetes(ADA). No Panel Informationon 08-02 [facility] Complete PFT pre and post br onchodilatorOrdered By: Nelson Machado on 06-27-2022 [employer] CR Chest PA/LATon 03-21-2022 CR Chest PA/LAT Patient Name: CHERYL MASON Diagnostic Radiology ACCESSION EXAM DATE/TIME PROCEDURE ORDERING PROVIDER [id number] 03/21/2022 15:22 EDT CR Chest PA and LAT DO FISCHER EUGENE F. CPT code 42813 Reason For Exam (CR Chest PA and LAT) cough, smoker Report PA AND LATERAL CHEST CLINICAL INDICATION: Cough TECHNIQUE: PA and Lateral chest COMPARISON: None FINDINGS: The cardiac and mediastinal silhouettes are normal. The lungs are clear. There is no sizable pleural effusion. The osseous structures are unremarkable. IMPRESSION: No acute process. Report Dictated on Final Dictating Physician: MD GUAN NICHOLAS Signed Date and Time: 03/22/2022 9:16 am Signed by: MD GUAN NICHOLAS Transcribed Date and Time: 03/22/2022 9:17 Normal [facility] HCG,Urine Qualon 06-03-2021 Beta HCG ( test) Ql (U) Negative Normal Negative [facility] Comment on above: Result Comment: Plea se note: Very dilute urine specimens, as indicated by a low specific gravity, may not contain distribution sales representative levels of hCG. If is still suspected, a first morning urine specimen should be collected 48 hours later and tested. is the most common reason for HCG in urine, although choriocarcinoma, hydatidiform mole, and certain nontropho- blastic malignancies also result in detectable urinary HCG levels. Sensitivity = 20mIU/mL. Performed By: #### H CGUR #### [facility] [address] [place] [address] Basic Metabolic Panelon 12-0 Anion gap [Moles/Vol] 9 mmol/L Normal 3-13 [facility] Comment on above: Performed By: #### H GHCT, BMP3M #### [facility] [address] [place] [address] Calcium [Mass/Vol] 9.1 mg/dL Normal 8.4-10.4 [facility] Comment on above: Performed By: #### H GHCT, BMP3M #### [facility] [address] [place] [address] CO2 [Moles/Vol] 24 mmol/L Normal 22-30 [facility] Comment on above: Performed By: #### H GHCT, BMP3M #### [facility] [address] [place], [place] Glucose [Mass/Vol] 95 mg/dL Normal 70-100 [facility] Comment on above: Performed By: #### H GHCT, BMP3M #### [facility] [address] [place], [place] Urea nitrogen [Mass/Vol] 20 mg/dL Normal 9-20 [facility] Comment on above: Performed By: #### H GHCT, BMP3M #### [facility] [address] [place], [place] Creatinine [Mass/Vol] 0.87 mg/dL Normal 0.52-1.25 [facility] Comment on above: Performed By: #### H GHCT, BMP3M #### [facility] [address] [place], [place] GFR/1.73 sq M.predicted among blacks MDRD (S/P/Bld) [Vol rate/Area] mL/min/{1.73_m2} Normal >60 [facility] Comment on above: Performed By: #### H GHCT, BMP3M #### [facility] [address], [place] GFR/1.73 sq M.predicted among non-blacks MDRD (S/P/Bld) [Vol rate/Area] 88.2 mL/min/{1.73_m2} Normal >60 [facility] Comment on above: Result Comment: KDIG O guidelines provide the following GFR categories: Stage GFR(ml/min/1.73 m2) Terms G1 >=90 Normal or high G2 60-89 Mildly decreased* G3a 45-59 Mildly to moderately decreased G3b 30-44 Moderately to severely decreased G4 15-29 Severely decreased G5 <15 Kidney failure *Relative to young adult level. In the absence of evidence of kidney damage, neither GFR category G1 nor G2 fulfill the criteria for CKD. The CKD-EPI equation is validated in individuals 18 years of age and older. Currently the best equation for estimating glomerular filtration rate (GFR) from serum creatinine in children is the Bedside [place]oy equation. It is less accurate in patients with extremes of muscle mass, restriction of dietary protein, ingestion of creatine, extra-renal metabolism of creatinine, or treatment with medications that affect renal tubular creatinine secretion. Performed By: #### H CATERINA MALDONADO3M #### [facility] [address] [place] [address] Potassium [Moles/Vol] 4.5 mmol/L Normal 3.5-5.1 [facility] Comment on above: Performed By: #### H JOEL BMP3M #### [address] [place] [address] Sodium [Moles/Vol] 136 mmol/L Normal 135-145 [facility] Comment on above: Performed By: #### H JOEL BMP3M #### [address] [place] [address] Chloride [Moles/Vol] 103 mmol/L Normal 98-107 [facility] Comment on above: Performed By: #### H JOEL BMP3M #### [address] [place] [address] Hemoglobin AND Hematocriton 05-31-2021 Hematocrit (Bld) [Volume fraction] 40.6 % Normal 35.0-47.0 [facility] Comment on above: Performed By: #### H JOEL BMP3M #### [address] [place] [address] Hemoglobin (Bld) [Mass/Vol] 14.0 g/dL Normal 11.7-16.0 [facility] Comment on above: Performed By: #### H JOEL BMP3M #### [address] [place] [address] [place] ARTHR/ASP/INJ MAJOR JT/BU RSA RT WO USOrdered By: Pinky Romero on 10-29-2020 Patient Name: CHERYL WOOD Fluoroscopy ACCESSION EXAM DATE/TIME PROCEDURE ORDERING PROVIDER [id number] 10/29/2020 13:09 EDT RF Arthrogram Aspir Bhupinder ROMERO MD, PINKY Parkert Right CPT code 59124 [id number] Reason For Exam (RF Arthrogram Aspir Inj Jt Right) instability of right shoulder joint Report Examination: Fluoroscopic guided right shoulder arthrogram and gadolinium injection Clinical Indication: Instability Comparison: None Findings: Informed written consent was obtained from the patient after the risks, benefits, and alternatives to diagnostic joint injection were adequately explained and all questions were answered. This was explained by Dr. Felipe Roger. Patient was placed in supine position. Anterior left shoulder was prepped and draped in usual sterile fashion utilizing ChloraPrep antisepsis. 1.0% lidocaine was used for local anesthesia. Access was then obtained under direct fluoroscopic guidance into the left glenohumeral joint. A solution of 0.1 mL gadolinium Multihance, 6 mL of Isovue-300, 5 mL of 1.0% lidocaine and 9 mL of saline was injected to distend the joint space. Total fluoroscopic time 0.7 minutes. The patient described no postprocedural pain relief. No immediate complications were appreciated. Impression: Status post right glenohumeral joint diagnostic gadolinium injection for subsequent MR arthrography. Examination: MRI arthrogram right shoulder Clinical Indication: Instability Fluoroscopy Report Comparison: None Findings: Multiplanar multisequence MRI images were obtained through the right shoulder after administration of intra-articular gadolinium contrast. T2 weighted images demonstrate no osseous edema within the shoulder to suggest fracture or contusion. No abnormal bone marrow signal intensity. Suspected anterior-superior capsular tear, with abnormal extension of the injected intra-articular contrast into the anterior subdeltoid bursa/space (images 6-19 series 4, images 6-22 series 7 and images 1-4 series 5). Some low-grade articular sided contrast imbibition along the mid to posterior superior labrum, is present, which may be related to a low-grade articular sided tear. No displaced labral tear identified. No focal glenohumeral chondral lesion. The anterior middle glenohumeral ligament is thickened, a normal variant. No evidence of glenohumeral ligament tear/injury. The glenohumeral joint is in good anatomic alignment. No evidence of productive or erosive arthropathy. Some iatrogenic contrast injection into the anterior supraspinatus tendon is suspected. Otherwise the rotator cuff tendons are intact without significant tendinopathy or high-grade partial/full-thickness tear. The intra and extra-articular portions of the long head biceps tendon are unremarkable. The distal biceps tendon lies within the bicipital groove. The acromioclavicular joint is intact without evidence of a [place] joint effusion. Slight downsloping of the distal-lateral acromion. Normal muscle volume and signal intensity. Impression: 1. Suspected anterior-superior capsular tear, with abnormal extension of the injected intra-articular contrast into the anterior subdeltoid bursa/space. 2. Some low-grade articular sided contrast imbibition along the mid to posterior superior labrum is suspicious for a low-grade articular sided tear. No displaced labral tear identified. Report Dictated on --- Final --- Dictated: 10/29/2020 2:05 pm Dictating Physician: MD ROGER JASON Signed Date and Time: 10/29/2020 2:20 pm Signed by: MD ROGER JASON Transcribed Date and Time: 10/29/2020 2:19 [facility] Work Phone: [facility] Incoming Radiology Results From [facility] - 10/29/2020 2:21 PM EDT [facility]: [id number] Fluor[facility] ACCESSION EXAM DATE/TIME PROCEDURE ORDERING PROVIDER [id number] 10/29/2020 13:09 EDT RF Arthrogram Aspir Bhupinder ROMERO MD, [facility] Arnold Jt Right CPT code 73915 [id number] Reason For Exam (RF Arthrogram Aspir Inj Arnold Jt Right) instability of right shoulder joint Report Examination: Fluoroscopic guided right shoulder arthrogram and gadolinium injection Clinical Indication: Instability Comparison: None Findings: Informed written consent was obtained from the patient after the risks, benefits, and alternatives to diagnostic joint injection were adequately explained and all questions were answered. This was explained by Dr. Felipe Roger. Patient was placed in supine position. Anterior left shoulder was prepped and draped in usual sterile fashion utilizing ChloraPrep antisepsis. 1.0% lidocaine was used for local anesthesia. Access was then obtained under direct fluoroscopic guidance into the left glenohumeral joint. A solution of 0.1 mL gadolinium Multihance, 6 mL of Isovue-300, 5 mL of 1.0% lidocaine and 9 mL of saline was injected to distend the joint space. Total fluoroscopic time 0.7 minutes. The patient described no postprocedural pain relief. No immediate complications were appreciated. Impression: Status post right glenohumeral joint diagnostic gadolinium injection for subsequent MR arthrography. Examination: MRI arthrogram right shoulder Clinical Indication: Instability Fluoroscopy Report Comparison: None Findings: Multiplanar multisequence MRI images were obtained through the right shoulder after administration of intra-articular gadolinium contrast. T2 weighted images demonstrate no osseous edema within the shoulder to suggest fracture or contusion. No abnormal bone marrow signal intensity. Suspected anterior-superior capsular tear, with abnormal extension of the injected intra-articular contrast into the anterior subdeltoid bursa/space (images 6-19 series 4, images 6-22 series 7 and images 1-4 series 5). Some low-grade articular sided contrast imbibition along the mid to posterior superior labrum, is present, which may be related to a low-grade articular sided tear. No displaced labral tear identified. No focal glenohumeral chondral lesion. The anterior middle glenohumeral ligament is thickened, a normal variant. No evidence of glenohumeral ligament tear/injury. The glenohumeral joint is in good anatomic alignment. No evidence of productive or erosive arthropathy. Some iatrogenic contrast injection into the anterior supraspinatus tendon is suspected. Otherwise the rotator cuff tendons are intact without significant tendinopathy or high-grade partial/full-thickness tear. The intra and extra-articular portions of the long head biceps tendon are unremarkable. The distal biceps tendon lies within the bicipital groove. The acromioclavicular joint is intact without evidence of a [place] joint effusion. Slight downsloping of the distal-lateral acromion. Normal muscle volume and signal intensity. Impression: 1. Suspected anterior-superior capsular tear, with abnormal extension of the injected intra-articular contrast into the anterior subdeltoid bursa/space. 2. Some low-grade articular sided contrast imbibition along the mid to posterior superior labrum is suspicious for a low-grade articular sided tear. No displaced labral tear identified. Report Dictated on --- Final --- Dictated: 10/29/2020 2:05 pm Dictating Physician: MD ROGER JASON Signed Date and Time: 10/29/2020 2:20 pm Signed by: MD ROGER JASON Transcribed Date and Time: 10/29/2020 2:19 [facility] Work Phone: MRI UPPER EXTREMITY RIGHT W JT W CONTRASTOrdered By: Pinky Romero on 10-29-2020 Patient Name: CHERYL MASON Magnetic Resonance Imaging ACCESSION EXAM DATE/TIME PROCEDURE ORDERING PROVIDER [id number] 10/29/2020 13:53 EDT MRI Up Ext Joint w/ MD ROMERO NILESH Contrast Right CPT code 85179 Reason For Exam (MRI Up Ext Joint w/ Contrast Right) pain Report Examination: Fluoroscopic guided right shoulder arthrogram and gadolinium injection Clinical Indication: Instability Comparison: None Findings: Informed written consent was obtained from the patient after the risks, benefits, and alternatives to diagnostic joint injection were adequately explained and all questions were answered. This was explained by Dr. Felipe Roger. Patient was placed in supine position. Anterior left shoulder was prepped and draped in usual sterile fashion utilizing ChloraPrep antisepsis. 1.0% lidocaine was used for local anesthesia. Access was then obtained under direct fluoroscopic guidance into the left glenohumeral joint. A solution of 0.1 mL gadolinium Multihance, 6 mL of Isovue-300, 5 mL of 1.0% lidocaine and 9 mL of saline was injected to distend the joint space. Total fluoroscopic time 0.7 minutes. The patient described no postprocedural pain relief. No immediate complications were appreciated. Impression: Status post right glenohumeral joint diagnostic gadolinium injection for subsequent MR arthrography. Examination: MRI arthrogram right shoulder Clinical Indication: Instability Comparison: Magnetic Resonance Imaging Report None Findings: Multiplanar multisequence MRI images were obtained through the right shoulder after administration of intra-articular gadolinium contrast. T2 weighted images demonstrate no osseous edema within the shoulder to suggest fracture or contusion. No abnormal bone marrow signal intensity. Suspected anterior-superior capsular tear, with abnormal extension of the injected intra-articular contrast into the anterior subdeltoid bursa/space (images 6-19 series 4, images 6-22 series 7 and images 1-4 series 5). Some low-grade articular sided contrast imbibition along the mid to posterior superior labrum, is present, which may be related to a low-grade articular sided tear. No displaced labral tear identified. No focal glenohumeral chondral lesion. The anterior middle glenohumeral ligament is thickened, a normal variant. No evidence of glenohumeral ligament tear/injury. The glenohumeral joint is in good anatomic alignment. No evidence of productive or erosive arthropathy. Some iatrogenic contrast injection into the anterior supraspinatus tendon is suspected. Otherwise the rotator cuff tendons are intact without significant tendinopathy or high-grade partial/full-thickness tear. The intra and extra-articular portions of the long head biceps tendon are unremarkable. The distal biceps tendon lies within the bicipital groove. The acromioclavicular joint is intact without evidence of a [place] joint effusion. Slight downsloping of the distal-lateral acromion. Normal muscle volume and signal intensity. Impression: 1. Suspected anterior-superior capsular tear, with abnormal extension of the injected intra-articular contrast into the anterior subdeltoid bursa/space. 2. Some low-grade articular sided contrast imbibition along the mid to posterior superior labrum is suspicious for a low-grade articular sided tear. No displaced labral tear identified. Report Dictated on --- Final --- Dictated: 10/29/2020 2:05 pm Dictating Physician: MD ROGER JASON Signed Date and Time: 10/29/2020 2:20 pm Signed by: MD ROGER JASON Transcribed Date and Time: 10/29/2020 2:19 [facility] Work Phone: [facility], [facility] Incoming Radiology Results From [facility] - 10/29/2020 2:21 PM EDT Patient Name: CHERYL WOOD Magnetic Resonance Imaging ACCESSION EXAM DATE/TIME PROCEDURE ORDERING PROVIDER [id number] 10/29/2020 13:53 EDT MRI Up Ext Joint w/ MD NICK, PINKY Contrast Right CPT code 94864 Reason For Exam (MRI Up Ext Joint w/ Contrast Right) pain Report Examination: Fluoroscopic guided right shoulder arthrogram and gadolinium injection Clinical Indication: Instability Comparison: None Findings: Informed written consent was obtained from the patient after the risks, benefits, and alternatives to diagnostic joint injection were adequately explained and all questions were answered. This was explained by Dr. Felipe Roger. Patient was placed in supine position. Anterior left shoulder was prepped and draped in usual sterile fashion utilizing ChloraPrep antisepsis. 1.0% lidocaine was used for local anesthesia. Access was then obtained under direct fluoroscopic guidance into the left glenohumeral joint. A solution of 0.1 mL gadolinium Multihance, 6 mL of Isovue-300, 5 mL of 1.0% lidocaine and 9 mL of saline was injected to distend the joint space. Total fluoroscopic time 0.7 minutes. The patient described no postprocedural pain relief. No immediate complications were appreciated. Impression: Status post right glenohumeral joint diagnostic gadolinium injection for subsequent MR arthrography. Examination: MRI arthrogram right shoulder Clinical Indication: Instability Comparison: Magnetic Resonance Imaging Report None Findings: Multiplanar multisequence MRI images were obtained through the right shoulder after administration of intra-articular gadolinium contrast. T2 weighted images demonstrate no osseous edema within the shoulder to suggest fracture or contusion. No abnormal bone marrow signal intensity. Suspected anterior-superior capsular tear, with abnormal extension of the injected intra-articular contrast into the anterior subdeltoid bursa/space (images 6-19 series 4, images 6-22 series 7 and images 1-4 series 5). Some low-grade articular sided contrast imbibition along the mid to posterior superior labrum, is present, which may be related to a low-grade articular sided tear. No displaced labral tear identified. No focal glenohumeral chondral lesion. The anterior middle glenohumeral ligament is thickened, a normal variant. No evidence of glenohumeral ligament tear/injury. The glenohumeral joint is in good anatomic alignment. No evidence of productive or erosive arthropathy. Some iatrogenic contrast injection into the anterior supraspinatus tendon is suspected. Otherwise the rotator cuff tendons are intact without significant tendinopathy or high-grade partial/full-thickness tear. The intra and extra-articular portions of the long head biceps tendon are unremarkable. The distal biceps tendon lies within the bicipital groove. The acromioclavicular joint is intact without evidence of a [place] joint effusion. Slight downsloping of the distal-lateral acromion. Normal muscle volume and signal intensity. Impression: 1. Suspected anterior-superior capsular tear, with abnormal extension of the injected intra-articular contrast into the anterior subdeltoid bursa/space. 2. Some low-grade articular sided contrast imbibition along the mid to posterior superior labrum is suspicious for a low-grade articular sided tear. No displaced labral tear identified. Report Dictated on --- Final --- Dictated: 10/29/2020 2:05 pm Dictating Physician: MD ROGER JASON Signed Date and Time: 10/29/2020 2:20 pm Signed by: MD ROGER JASON Transcribed Date and Time: 10/29/2020 2:19 [facility] Work Phone: MRI Up Ext Joint w/ Contrast Righton 10-29-2020 MRI Up Ext Joint w/ Contrast Right [id number] ACCESSION EXAM DATE/TIME PROCEDURE ORDERING PROVIDER [id number] 10/29/2020 13:53 EDT MRI Up Ext Joint w/ MD NICK, PINKY Contrast Right CPT code 54441 Reason For Exam (MRI Up Ext Joint w/ Contrast Right) pain Report Examination: Fluoroscopic guided right shoulder arthrogram and gadolinium injection Clinical Indication: Instability Comparison: None Findings: Informed written consent was obtained from the patient after the risks, benefits, and alternatives to diagnostic joint injection were adequately explained and all questions were answered. This was explained by Dr. Felipe Roger. Patient was placed in supine position. Anterior left shoulder was prepped and draped in usual sterile fashion utilizing ChloraPrep antisepsis. 1.0% lidocaine was used for local anesthesia. Access was then obtained under direct fluoroscopic guidance into the left glenohumeral joint. A solution of 0.1 mL gadolinium Multihance, 6 mL of Isovue-300, 5 mL of 1.0% lidocaine and 9 mL of saline was injected to distend the joint space. Total fluoroscopic time 0.7 minutes. The patient described no postprocedural pain relief. No immediate complications were appreciated. Impression: Status post right glenohumeral joint diagnostic gadolinium injection for subsequent MR arthrography. Examination: MRI arthrogram right shoulder Clinical Indication: Instability Comparison: Magnetic Resonance Imaging Report None Findings: Multiplanar multisequence MRI images were obtained through the right shoulder after administration of intra-articular gadolinium contrast. T2 weighted images demonstrate no osseous edema within the shoulder to suggest fracture or contusion. No abnormal bone marrow signal intensity. Suspected anterior-superior capsular tear, with abnormal extension of the injected intra-articular contrast into the anterior subdeltoid bursa/space (images 6-19 series 4, images 6-22 series 7 and images 1-4 series 5). Some low-grade articular sided contrast imbibition along the mid to posterior superior labrum, is present, which may be related to a low-grade articular sided tear. No displaced labral tear identified. No focal glenohumeral chondral lesion. The anterior middle glenohumeral ligament is thickened, a normal variant. No evidence of glenohumeral ligament tear/injury. The glenohumeral joint is in good anatomic alignment. No evidence of productive or erosive arthropathy. Some iatrogenic contrast injection into the anterior supraspinatus tendon is suspected. Otherwise the rotator cuff tendons are intact without significant tendinopathy or high-grade partial/full-thickness tear. The intra and extra-articular portions of the long head biceps tendon are unremarkable. The distal biceps tendon lies within the bicipital groove. The acromioclavicular joint is intact without evidence of a [place] joint effusion. Slight downsloping of the distal-lateral acromion. Normal muscle volume and signal intensity. Impression: 1. Suspected anterior-superior capsular tear, with abnormal extension of the injected intra-articular contrast into the anterior subdeltoid bursa/space. 2. Some low-grade articular sided contrast imbibition along the mid to posterior superior labrum is suspicious for a low-grade articular sided tear. No displaced labral tear identified. Report Dictated on Final Dictated: 10/29/2020 2:05 pm Dictating Physician: MD ROGER JASON Signed Date and Time: 10/29/2020 2:20 pm Signed by: MD ROGER JASON Transcribed Date and Time: 10/29/2020 2:19 [facility] RF Arthrogram Aspir Inj Arnold Jt Righton 10-29-2020 RF Arthrogram Aspir Inj Arnold Jt Right [facility]: [id number] ACCESSION EXAM DATE/TIME PROCEDURE ORDERING PROVIDER [id number] 10/29/2020 13:09 EDT RF Arthrogram Aspir Bhupinder ROMERO MD, PINKY Arnold Jt Right CPT code 64989 [id number] Reason For Exam (RF Arthrogram Aspir Inj Arnold Jt Right) instability of right shoulder joint Report Examination: Fluoroscopic guided right shoulder arthrogram and gadolinium injection Clinical Indication: Instability Comparison: None Findings: Informed written consent was obtained from the patient after the risks, benefits, and alternatives to diagnostic joint injection were adequately explained and all questions were answered. This was explained by Dr. Felipe Roger. Patient was placed in supine position. Anterior left shoulder was prepped and draped in usual sterile fashion utilizing ChloraPrep antisepsis. 1.0% lidocaine was used for local anesthesia. Access was then obtained under direct fluoroscopic guidance into the left glenohumeral joint. A solution of 0.1 mL gadolinium Multihance, 6 mL of Isovue-300, 5 mL of 1.0% lidocaine and 9 mL of saline was injected to distend the joint space. Total fluoroscopic time 0.7 minutes. The patient described no postprocedural pain relief. No immediate complications were appreciated. Impression: Status post right glenohumeral joint diagnostic gadolinium injection for subsequent MR arthrography. Examination: MRI arthrogram right shoulder Clinical Indication: Instability Fluoroscopy Report Comparison: None Findings: Multiplanar multisequence MRI images were obtained through the right shoulder after administration of intra-articular gadolinium contrast. T2 weighted images demonstrate no osseous edema within the shoulder to suggest fracture or contusion. No abnormal bone marrow signal intensity. Suspected anterior-superior capsular tear, with abnormal extension of the injected intra-articular contrast into the anterior subdeltoid bursa/space (images 6-19 series 4, images 6-22 series 7 and images 1-4 series 5). Some low-grade articular sided contrast imbibition along the mid to posterior superior labrum, is present, which may be related to a low-grade articular sided tear. No displaced labral tear identified. No focal glenohumeral chondral lesion. The anterior middle glenohumeral ligament is thickened, a normal variant. No evidence of glenohumeral ligament tear/injury. The glenohumeral joint is in good anatomic alignment. No evidence of productive or erosive arthropathy. Some iatrogenic contrast injection into the anterior supraspinatus tendon is suspected. Otherwise the rotator cuff tendons are intact without significant tendinopathy or high-grade partial/full-thickness tear. The intra and extra-articular portions of the long head biceps tendon are unremarkable. The distal biceps tendon lies within the bicipital groove. The acromioclavicular joint is intact without evidence of a [place] joint effusion. Slight downsloping of the distal-lateral acromion. Normal muscle volume and signal intensity. Impression: 1. Suspected anterior-superior capsular tear, with abnormal extension of the injected intra-articular contrast into the anterior subdeltoid bursa/space. 2. Some low-grade articular sided contrast imbibition along the mid to posterior superior labrum is suspicious for a low-grade articular sided tear. No displaced labral tear identified. Report Dictated on Final Dictated: 10/29/2020 2:05 pm Dictating Physician: MD ROGER JASON Signed Date and Time: 10/29/2020 2:20 pm Signed by: MD ROGER JASON Transcribed Date and Time: 10/29/2020 2:19 Normal [facility] XR Shoulder Right 2 VWon [id number] Radiology ACCESSION EXAM DATE/TIME PROCEDURE ORDERING PROVIDER [id number] 08/09/2020 14:46 EST CR Shoulder 2+ Views MD HUSEYIN, NIURKA Sandoval Right CPT code 64012 Reason For Exam (CR Shoulder 2+ Views Right) pain Report RIGHT SHOULDER: CLINICAL INDICATION: Pain. TECHNIQUE: AP, Grashey and axillary COMPARISON: None. FINDINGS: There is no evidence for fracture or dislocation. The glenohumeral and acromioclavicular joints are unremarkable. No bone lesion is identified. There is no soft tissue abnormality. IMPRESSION: No fracture or dislocation. Report Dictated on --- Final --- Dictating Physician: MD BROWN KEVIN Signed Date and Time: 08/09/2020 2:57 pm Signed by: MD BROWN KEVIN Transcribed Date and Time: 08/09/2020 2:58 [facility] Work Phone: [facility], [facility] Incoming Radiology Results From [facility] - 08/09/2020 2:58 PM EST Patient Name: CHERYL WOOD Diagnostic Radiology ACCESSION EXAM DATE/TIME PROCEDURE ORDERING PROVIDER [id number] 08/09/2020 14:46 EST CR Shoulder 2+ Views MD HUSEYIN, NIURKA Sandoval Right CPT code 03562 Reason For Exam (CR Shoulder 2+ Views Right) pain Report RIGHT SHOULDER: CLINICAL INDICATION: Pain. TECHNIQUE: AP, Grashey and axillary COMPARISON: None. FINDINGS: There is no evidence for fracture or dislocation. The glenohumeral and acromioclavicular joints are unremarkable. No bone lesion is identified. There is no soft tissue abnormality. IMPRESSION: No fracture or dislocation. Report Dictated on --- Final --- Dictating Physician: MD BROWN KEVIN Signed Date and Time: 08/09/2020 2:57 pm Signed by: MD BROWN KEVIN Transcribed Date and Time: 08/09/2020 2:58 [facility] Work Phone: Progress Noteon 02-16-2018 Java Swing Developer Authentication Interface Message Text VisitSubjective: Cheryl Wood is a 27 y.o. female who presents for a postpartumvisit. She is 6 week following a LTCS. I have fully reviewed theprenatal and intrapartum course. The delivery was at 27 gestational weeks due tonon reassuring heart rate pattern. Pt with PPROM since 19 weeks. Delivering Provider: Hospitalist Isis. course has been unremarkable. Baby's course has been complicated by prematurity. Remains in NICU on NG feedsand. Baby is feeding by breast.Bleeding no bleeding.Bowel function is normal. Bladder function is normal.Patient is sexually active. Contraception method is condoms. depression screening: negative.Patient's medications, allergies, past medical, surgical, , social, andfamily histories were reviewed and updated as appropriate.HPIReview of SystemsReview of SystemsObjective: BP 110/79 Wt (!) 122.5 kg (270 lb) LMP 06/23/2017Physical ExamPelvic Exam:Incision is well healed.Discussed contraceptive options, effectiveness of measures, side effects,bleeding patterns with initiation. Desires nexplanon and will contact her GYNfor appointent.Assessment: Normal exam.Plan:1. Contraception: condoms and vaginal spermicide pending consult for Nexplanon2. Continue vitamin as long as childbearing3. Follow up with Dr. Sol in next few weeks to schedule consult forNexplanon.4. Due to PPROM in this , would recommend serial cervical lengths and17p starting at 16 weeks with future pregnanciesThe total patient time of the visit was 15 minutes, of which greater than 50% ofthe time was spent counseling and coordinating care. Normal [facility] Progress Noteon 01-18-2018 Java Swing Developer Authentication Interface Message Text VisitSubjective: Cheryl Wood is a 27 y.o. female approximately 2 weekspostpartum presenting for her incision check. She underwent an emergent RLTCS inthe setting of previable PROM and cord prolapse. Cheryl denies any complaints.Her female is stable in the NCIU. Cheryl reports a stable mood. She isbreast pumping.She is unaccompanied.Review of SystemsReview of SystemsAll other systems reviewed and are negative.Objective: BP 138/82 Ht 174 cm Wt (!) 119.3 kg (263 lb 1.6 oz) LMP 06/23/2017Physical ExamAbdomen: Incision intact, healing well. Small area of skin separationapproximately 1/3 of distance from right angle. No erythema or discharge noted.Pelvic Exam: Not performed.Assessment: 27 y.o. two weeks withPatient Active Problem ListDiagnosis Premature rupture of membranes in , antepartum BMI 39.0-39.9,adult Rh negative, maternal History of PROM in previous pregnancyPlan:1. Contraception: Undecided.2. Encouraged follow up as needed.3. Wound care instructions reviewed.4. Patient desires follow up with MFM in 4 weeks for visit.The total patient time of the visit was 15 minutes, of which greater than 50% ofthe time was spent counseling and coordinating care.Luis Fernando [place], Normal [facility] Progress Noteon 12-03-2017 Java Swing Developer Authentication Interface Message Text Clinical case reviewed with Dr. Granado, Dr. Croft regarding celestone administration. Concern for potential for contractions with celestone administration. Pt with complete previa. Will hold on celestone until admit to hospital at 24 weeks. 12/08/17 Normal [facility] Progress Noteon 12-02-2017 Java Swing Developer Authentication Interface Message Text Routine VisitSubjective: Cheryl Wood is being seen today for her obstetrical visit. She isat 23w1d gestation. Patient reports no cramping, no contractions. Pt statescontinuing to have clear or blood-tinged LOF. States it is usually a smallamount. Denies fever at home. Movement: normal.She is accompanied by her significant other.Signs and Symptoms of LaborRachel presents with no labor symptoms. MovementRachel reports normal movement.Vaginal Bleeding During PregnancyRachel presents today with vaginal bleeding.Vaginal DischargeRachel denies any unusual or increase in vaginal discharge.Rupture of Membranes/Leaking FluidRachel reports that she is leaking fluid.Signs and Symptoms of PreeclampsiaRachel is presenting with no preeclampsia symptoms.Pain Scale Cheryl denies any signs or symptoms of pain.Review of SystemsReview of SystemsGenitourinary: Positive for vaginal discharge. Small amount clear/blood tinged LOFAll other systems reviewed and are negative.Objective: BP 130/78 Pulse 106 Wt (!) 119.3 kg (263 lb) LMP 06/23/2017Physical ExamNursing note and vitals reviewed.Constitutional: She is oriented to person, place, and time. She appearswell-developed and well-nourished.Pulmonary/ Chest: Effort normal.Abdominal: Soft.Musculoskeletal: Normal range of motion.Neurological: She is alert and oriented to person, place, and time.Skin: Skin is warm and dry.Psychiatric: She has a normal mood and affect. Her behavior is normal.FHT: PositivePresentation: CephalicUterine Size: S=DPelvic Exam: No pelvic exam this visitUltrasound: see reportAssessment/Plan:27 y.o. at 23w1d withActive Non-Hospital Problems Diagnosis Date Noted Vaginal bleeding during 11/25/2017 - placenta previa noted on ultrasound- POC reviewed with Dr. Jean-Pierre welch previously given- precautions reviewed Heart palpitations 11/16/2017 Seen by [facility] cardiology Had Holter monitor. Normal sinus rhythm. Marginal placenta previa 11/16/2017 Dx by OB prior to PPROM TVCL not performed by MFM due to PPROM Precautions reviewed Supervision of other high risk , antepartum 11/09/2017 PLAN OF CAREMD/OB APPOINTMENTSHow often should patient be evaluated? Weekly until inpatient admissionWork restrictions: no workingFETAL EVALUATIONAntenatal surveillance: inpatient surveillance; Admission at 24 weeksUltrasound: Growth every 4 weeks pending sizeDELIVERY PLANHospital: [facility] CenterC/S at 34 weeks or sooner if indicatedGBS culture:Contraception: Premature rupture of membranes in , antepartum 11/03/2017 19 weeks Consult with neonatology/Palliative done- plan for inpatient admission 24weeks Pt to continue to check temp at home Precautions reviewed Obesity affecting [place] of medicine recommend weight gain in : Obese (all classes)> 30: total weight gain 11-20 lbs, 0.5 lb per week in the second and thirdtrimester. Nutrition consult offered - she deferred until she is inpatient. Discussed early GDM screen - she deferred until she is inpatient. Rh negative state in antepartum period Had Rhogam 10/22, repeat Q 12 weeks.Precautions reviewedPt for admission next Thursday at 24 weeksThe total patient time of the visit was 15 minutes, of which greater than 50% ofthe time was spent counseling and coordinating care. Normal [facility] Complete Blood Counton 11-25 Differential Complete Manual Normal [facility] Comment on above: Performed By: #### C BC ####[address] [phone] Erythrocyte distribution width Auto Ratio (RBC) 12.2 % Normal 0.0-14.4 [facility] Comment on above: Performed By: #### C BC ####[address] [phone] Hematocrit Auto Volume Fraction (Bld) 36.1 % Normal 36.0-44.0 [facility] Comment on above: Performed By: #### C BC ####[address] [phone] Hemoglobin mass conc (Bld) 12.8 g/dL Normal 12.0-15.0 [facility] Comment on above: Performed By: #### C BC ####[address] [phone] Immature granulocytes/100 WBC (Bld) 0.40 % Normal [facility] Comment on above: Result Comment: [place] ture Granulocyte Percent includes promyelocytes, myelocytes,and metamyelocytes. IG% > 1.0 indicates a left shift ispresent. With automated differentials, bands are includedin the neutrophil count and not in the Immature GranulocytePercent. Performed By: #### C BC ####[address] [phone] MCH Auto Entitic mass (RBC) 32.5 pg Normal 26.0-34.0 [facility] Comment on above: Performed By: #### C BC ####[address] [phone] MCHC Auto mass conc (RBC) 35.5 % Normal 31.0-37.0 [facility] Comment on above: Performed By: #### C BC ####[address] [phone] MCV Auto Entitic volume (RBC) 91.6 fL Normal 80.0-100.0 [facility] Comment on above: Performed By: #### C BC ####[address] [phone] Nucleated RBC/100 WBC Ratio (Bld) 0.0 % Normal -1.0-0.0 [facility] Comment on above: Performed By: #### C BC ####[address] [phone] Platelet mean volume Auto Entitic volume (Bld) 10.6 fL Normal [facility] Comment on above: Result Comment: MPV is plateletrange and agedependent Performed By: #### C BC ####[address] [phone] Platelets Auto #/vol (Bld) 273 10*3/uL Normal 150-450 [facility] Comment on above: Performed By: #### C BC ####[address] [phone] RBC Auto #/vol (Bld) 3.94 10E12/L Low 4.00-4.90 [facility] Comment on above: Performed By: #### C BC ####[address] [phone] WBC Auto #/vol (Bld) 10.9 10*3/uL Normal 4.5-11.0 [facility] Comment on above: Performed By: #### C BC ####[address] [phone] Manual Differentialon 2017 Absolute Neutrophil No. 8.2 Normal A [facility] Comment on above: Performed By: #### M DIFF ####[address] [phone] Anisocytosis Slight Normal [facility] Comment on above: Performed By: #### M DIFF ####[facility] of [address] [phone] Atypical Lymphocytes 1 % Normal 0-8 [facility] Comment on above: Performed By: #### M DIFF ####[facility] of [address] [phone] Band Neutrophils 5 % Normal 5-11 [facility] Comment on above: Performed By: #### M DIFF ####[facility] of [address] [phone] Lymphocytes 22 % Low 24-44 [facility] Comment on above: Performed By: #### M DIFF ####[facility] of [address] [phone] Metamyelocytes 0 % Normal 0-0 [facility] Comment on above: Performed By: #### M DIFF ####[facility] of [address] [phone] Monocytes 2 % Low 3-6 [facility] Comment on above: Performed By: #### M DIFF ####[facility] of [address] [phone] Myelocytes 0 % Normal 0-0 [facility] Comment on above: Performed By: #### M DIFF ####[facility] of [address] [phone] Polychromasia Occasional Normal [facility] Comment on above: Performed By: #### M DIFF ####[facility] of [address] [phone] Promyelocytes 0 % Normal 0-0 [facility] Comment on above: Performed By: #### M DIFF ####[facility] of [address] [place] [phone] Segmented Neutrophils 70 % High 35-66 [facility] Comment on above: Performed By: #### M DIFF ####[facility] of SILVINO Agustin [phone] Progress Noteon 11-25-2017 Java Swing Developer Authentication Interface Message Text PALLIATIVE CARE / CONSULTName: Cheryl Wood : 1990Date: November 25, 2017Cheryl Wood is being seen today for a Pediatric Palliative Careconsult at the request of Dr Greene from [facility] for our opinion or medicaladvice regarding Family Support.History of Present IllnessCheryl Wood is a 27 y.o. [facility] Titi Ramsey.Cheryl is now at 22 1/7 wks gestational age.Her LEIDY is [birth year]18.Her fetus has been diagnosed with premature rupture of membranes at 19 weeks 1day.Her fetus' name is not yet determined, but is a girl.Cheryl was diagnosed with PPROM at 19 wks 1 day and she has since been onbedrest. Her appt today was to discuss plan of admission to hospital and when.She had been having some vaginal bleeding since ~ 7 weeks and thought to havemarginal previa, but bleeding noted again today. Ultrasound done today showedoligohydramnios with MVP 1.0 cm and a posterior placenta with placenta previawithout sign of hemorrhage.Met with parents along with Dr. Greene and Dr. Reyes. Dr. Greene discussed placentaprevia and admission at 24 weeks due to concerns of previa and bleeding. Shediscussed delivery by hyserotomy/ section with potential classicalcesarean section.Dr. Reyes discussed the limits of viability and that they could attemptresuscitation of this baby, however, it may not be successful depending on howwell the lungs were developed, baby's size, etc. Discussed that the longerRachel could remain the better the baby's survival chances would be,however acknowledged that this is a delicate balance as we worry about both thebaby's health and safety and mom's health and safety. She discussed the processof delivery, resuscitation/stabilizati on at [facility] or [facility] and then transfer to[facility] NICU. Acknowledged that this baby would need support of an ET tube andventilator. She discussed that if the baby's heart stopped despite respiratorysupport that she would recommend not doing cardiac resuscitation as that waslikely an indication the lungs were failing.Cheryl expressed that she wanted to do everything possible to help this baby.Father of the baby is Titi Ramsey.He is involved.Medical & Surgical HistoryPAST MEDICAL HISTORY:Past Medical History:Diagnosis Date Obesity affecting Rh negative state in antepartum periodPAST SURGICAL HISTORY:Past Surgical History:Procedure Laterality Date SECTION 2014 DENTAL SURGERYALLERGIES: (Include idiosyncrasies/intoleranc es, etc)MEDICATIONS: has No Known Allergies.MEDICATIONSCurr ent Outpatient PrescriptionsMedication Sig Ascorbic Acid (VITAMIN C) 1000 MG Take 500 mg by mouth 2 times daily Cholecalciferol (VITAMIN D PO)Take 1 Tab by mouth daily Per pt 50 mcg daily vitamin E 400 UNIT capsule Take 800 Units by mouth daily DOK 100 MG CAPS capsule TAKE 1 CAPSULE BY MOUTH TWICE DAILY ondansetron (ZOFRAN) 4 MG tablet TAKE 1 TABLET BY MOUTH EVERY 6 HOURS ASNEEDED FOR NAUSEA Multiple Vitamins-Minerals (ADULT ONE DAILY GUMMIES) CHEW Take 1 Tab by mouthdailyNo current facility-administered medications for this visit.PROVIDERSPrimary OB: Dr. Lozanopecialty OB: Dr. Garcia Care Provider: Not discussedSub-specialists: NoneOther agencies: None notedFAMILY/SOCIAL HISTORYFamily History: family history includes Autism in an other family member; ColonCancer in her paternal aunt; Diabetes in her maternal grandfather; Heart Diseasein her maternal grandfather; Lung Cancer in her maternal grandfather andmaternal grandmother; Pancreatic Cancer in her maternal grandfather; ProstateCancer in her paternal grandfather; Stroke in her maternal grandfather.Primary Caregivers (PCG) for the baby: ParentsPrimary Decision Makers for the baby:Cheryl and Noel in the immediate family: Name Gender Age Medical ProblemAdalynn Female 1 yrsLiving in the home:Titi Tafoya, WaqarynnOccupation and employer: Titi - employed, has SHAINA Tafoya - not currently working since went on bedrestSources of financial support:WagesAnticipated custody issues: no custody issuesSpecific stressors: Current diagnosisPrevious losses: Not discussedCoping strategies and sources of support: discussion and familySPIRITUALTradition & Community: Do not have a tamir background or baptism they identifywithImportance: NARituals: NACODE STATUS for the baby at :FullROSPertinent items are noted in HPI. Please see H&P.Palliative Care Flowsheet completed: yesIf no, why?PHYSICAL EXAMGeneral: Awake, alert, intermittently tearfulHead: ATNCNose: No drainageMouth: Mucous membranes moistResp: Easy, nonlaboredAbd: chart review was completed and this case was discussed with [facility] CareProfessionals Dr. Greene, Dr. Reyes, and Dario Salinas, SOLVENT RECOVERER..ASSESSMENT & PLANASSESSMENT:Cheryl Wood is a 27 y.o. woman with a fetusdiagnosed with PPROM at ~19 weeks gestation and placenta previa.Cheryl Wood also has the following issues:Patient Active Problem ListDiagnosis Premature rupture of membranes in , antepartum Obesity affecting Rh negative state in antepartum period Supervision of other high risk , antepartum Heart palpitations Marginal placenta previa Vaginal bleeding during .Cheryl is seen today to discuss goals of care/plan for admission and deliverygoing forward.PLAN:Overall Goals of Care: Parents desire to do everything possible to help their daughter to survive.//D elivery details: Preferred delivery hospital: [facility] at present (though mom was also thinkingabout [facility]) Desire for a formal Plan: No- We discussed the role of the palliative care team to support parents as thepregnancy continues and to support them if their baby is hospitalized in theNICU or of if their baby does not survive, and to assist with decision-makingduring and afterward. We gave them a folder with our contactinformation. As parents current goals of care are aggressive, we did notdiscuss services we can offer at end of life and will revisit that at anothertime if appropriate. 30 day parking pass provided.- We will continue to closely follow and are happy to meet with parents again atfollow up M appts if support is needed.- We provided empathic listening and support.- Discussed and provided information on the following topics: DNR/AND for the baby upon delivery education about how and when to contact the PPC team sibling issues follow-up- We will continue to provide transdisciplinary care and support by implementingthe following in collaboration with the other specialists and the primary team: Involve social work to assist with [facility] Involve social work to assess and address family coping and resiliency Involve child life to provide developmentally appropriate coping outlets forRachel and family - discussed availability of our CLS if 2 year old sibling ishaving difficulties- Situational grief and coping, as well as anticipatory grief and bereavementwere explored and addressed as desired with Cheryl.- Cheryl as able and her family verbalized understanding about the coveredtopics and were engaged in the planning and decision-making involved today.Specific action items from today's visit: NoneFollow-up:PRN and after deliveryThank you for this consult.Deloris Ramsay 2017Counseling and/or coordination of care ([id number] time in theoffice/outpatient setting or floor/unit time in the hospital) was greater than50 minutes, which is more than 50% of the total time of 70 minutes spent on theencounter.Time in 11:30 amTime out 12:40 pm Normal [facility] Java Swing Developer Authentication Interface Message Text Routine VisitSubjective: Cheryl Wood is being seen today for her obstetrical visit. She isat 22w1d gestation. Patient to restroom immediately prior to appt, presents withsmall to moderate amount bright red vaginal bleeding. Pt states prior to apptshe has only had clear LOF due to ruptured status. Pt states she has beenchecking her temperature at home and has remained afebrile. Pt deniescramping/contractio ns at this time. Pt denies continued vaginal bleeding afterleaving restroom. Movement: normal.She is accompanied by her significant other. MovementRachel reports normal movement.Vaginal Bleeding During PregnancyRachel presents today with vaginal bleeding.Vaginal DischargeRachel denies any unusual or increase in vaginal discharge.Rupture of Membranes/Leaking FluidRachel reports that she is leaking fluid.Signs and Symptoms of PreeclampsiaRachel is presenting with no preeclampsia symptoms.Pain Scale Cheryl denies any signs or symptoms of pain.Review of SystemsReview of SystemsGenitourinary: Positive for vaginal bleeding.All other systems reviewed and are negative.Objective: BP 138/62 Pulse 100 Temp 37.1 C (98.8 F) LMP 06/23/2017Physical ExamNursing note and vitals reviewed.Constitutional: She is oriented to person, place, and time. She appearswell-developed and well-nourished.Pulmonary/ Chest: Effort normal.Abdominal: Soft.Genitourinary: Vagina normal.Musculoskeletal: Normal range of motion.Neurological: She is alert and oriented to person, place, and time.Skin: Skin is warm and dry.Psychiatric: She has a normal mood and affect. Her behavior is normal.FHT: PositivePresentation: CephalicUterine Size: see growthPelvic Exam: SSE performed, scant amount bright red VB noted in vaginal vault.No bleeding coming from cervix at this time. Ultrasound:1. Intrauterine at 22 1/7 weeks.2. Oligohydramnios is noted with MVP 1.0 cm.3. Posterior placenta is noted with placenta previa. No signs of hemorrhagenoted.Assessmen t/Plan:27 y.o. at 22w1d withActive Non-Hospital Problems Diagnosis Date Noted Vaginal bleeding during 11/25/2017 - placenta previa noted on ultrasound- POC reviewed with Dr. Greene- rhogam previously given- precautions reviewed- CBC today Heart palpitations 11/16/2017 Seen by [facility] Had Holter monitor. Normal sinus rhythm. Marginal placenta previa 11/16/2017 Dx by OB prior to PPROM TVCL not performed by MFM due to PPROM Active VB today (resolved while in office), implications for deliverydiscussed per Dr. Greene (see note) Supervision of other high risk , antepartum 11/09/2017 PLAN OF CAREMD/OB APPOINTMENTSHow often should patient be evaluated? Weekly until inpatient admissionWork restrictions: no workingFETAL EVALUATIONAntenatal surveillance: inpatient surveillance; Admission at 24 weeksUltrasound: Growth every 4 weeks pending sizeDELIVERY PLANHospital: [facility] CenterC/S at 34 weeks or sooner if indicatedGBS culture:Contraception: Premature rupture of membranes in , antepartum 11/03/2017 19 weeks Consult with neonatology/Palliative today Pt to continue to check temp at home Precautions reviewed Obesity affecting Dennison of medicine recommend weight gain in : Obese (all classes)> 30: total weight gain 11-20 lbs, 0.5 lb per week in the second and thirdtrimester. Nutrition consult offered - she deferred until she is inpatient. Discussed early GDM screen - she deferred until she is inpatient. Rh negative state in antepartum period Had Rhogam 10/22, repeat Q 12 weeks.Precautions reviewed- pt to call with concernsFollow up OB visit 1 weekThe total patient time of the visit was 15 minutes, of which greater than 50% ofthe time was spent counseling and coordinating care. Normal [facility] Java Swing Developer Authentication Interface Message Text Patient seen with Palliative Care and neonatology. We discussed admission at 24weeks due to concerns of previa and bleeding. Bleeding precautions werereviewed and when to go to hospital. We discussed delivery byhyserotomy/ section with potential classical section. Thiswould mean every subsequent would need to be by section at 37weeks. She understands that section would be done if maternal risksare high with heavy vaginal bleeding. She also knows that baby may not survivedespite delivery.The total patient time of the visit was 15 minutes, of which greater than 50% ofthe time was spent counseling and coordinating care. Normal [facility] Progress Noteon 11-16-2017 Java Swing Developer Authentication Interface Message Text Routine VisitSubjective: Cheryl Wood is being seen today for her obstetrical visit. She isat 20w6d gestation. Patient reports leaking clear fluid. No CTXs, fever,chills, abdominal pain. Movement: present.HPIReview of SystemsReview of Systems - as above.Objective: BP 122/70 Temp 36.5 C (97.7 F) Ht 174 cm Wt (!) 116.7 kg (257 lb4.4 oz) LMP 06/23/2017Physical ExamAAOx3, NADAbd: soft, gravid, NTTPFHT: PositivePresentation: footling breechUterine Size: S=DPelvic Exam: No pelvic exam this visitAssessment:27 y.o. at 20w6d withActive Non-Hospital Problems Diagnosis Date Noted Heart palpitations 11/16/2017 Seen by [facility] Had Holter monitor. Normal sinus rhythm. Marginal placenta previa 11/16/2017 Dx by OB prior to PPROM TVCL not performed by MFM due to PPROM Supervision of other high risk , antepartum 11/09/2017 PLAN OF CAREMD/OB APPOINTMENTSHow often should patient be evaluated? Weekly until inpatient admissionWork restrictions: no workingFETAL EVALUATIONAntenatal surveillance: inpatient surveillance; Admission at 24-25 weeksUltrasound: Growth every 4 weeks pending sizeDELIVERY PLANHospital: [facility], undecided on which hospitalInduction at 34 weeks or sooner if indicatedGBS culture:Contraception: Premature rupture of membranes in , antepartum 11/03/2017 19 weeks Consult with neonatology next week to determine timing of inpt admission. Obesity affecting We reviewed that obesity complicating is associated with increasedmaternal and risks including: gestational diabetes, hypertensivedisorders, iatrogenic delivery, dysfunctional labor, postterm ,large for gestational age , shoulder dystocia, obstructive sleep apnea, hemorrhage, stillbirth, anomalies, delivery andpostcesarean complications. Dennison of medicine recommend weight gain in : Obese (all classes)> 30: total weight gain 11-20 lbs, 0.5 lb per week in the second and thirdtrimester. Nutrition consult offered - she deferred until she is inpatient. Discussed early GDM screen - she deferred until she is inpatient. Rh negative state in antepartum period Had Rhogam 10/22, repeat Q 12 weeks.Follow up neonatology, OB/US for viability, completion of anatomy evaluation ifable in 1 week.The total patient time of the visit was 15 minutes, of which greater than 50% ofthe time was spent counseling and coordinating care. Normal [facility] Progress Noteon 11-09-2017 Java Swing Developer Authentication Interface Message Text IVETTE VisitSubjective: Cheryl Wood is being seen today for her obstetrical visit. She isat 19w6d gestation. Patient reports no complaints. She is still having LOF onoccasion. Daily temperatures are normal. Movement: normal.She is accompanied by her significant other and relative(s).Review of SystemsReview of SystemsAll other systems reviewed and are negative.Objective: BP 122/76 Temp 36.7 C (98.1 F) Wt (!) 115.8 kg (255 lb 6.4 oz) LMP108/24/2016Physical ExamAbdominal: There is tenderness. There is guarding.No uterine tenderness.FHT: PositiveAssessment: is at 19w6d gestation.1. PPROM. Patient denies signs of IAI. Temperatures at home stable. Willcontinue conservative management with admission around 24-25 weeks. See [facility] ACCESS HOSPITALplan of care.2. Obesity. We briefly reviewed that obesity complicating isassociated with increased maternal and risks including: gestationaldiabetes, hypertensive disorders, iatrogenic delivery, dysfunctionallabor, postterm , large for gestational age , shoulder dystocia,obstructive sleep apnea, hemorrhage, stillbirth, anomalies, delivery and postcesarean complications. Weight gain during pregnancyshould be limited to 10-15 lbs according to the [employer] of Medicine. Patientdeclines nutrition consult.3. Rh negative. Will need Rhogam every 12 weeks. Had last dose around 10/22.4. care. We discussed our practice that has 5 physicians and 2 nursepractitioners. We also discussed potential use of strap machine operator automatic provider, whichpatient accepted. Patient understands that delivery will be in [place].Plan:1. RTC for weekly OB visits per [facility] plan of care.2. Ultrasound next week to complete anatomy.3. Admission to hospital 24-25 weeks.The total patient time of the visit was 10 minutes, of which greater than 50% ofthe time was spent counseling and coordinating care. Normal [facility] Progress Noteon 11-04-2017 Java Swing Developer Authentication Interface Message Text The total patient time of the visit was 60 minutes, of which greater than 50% of the time was spent counseling and coordinating care. Patient declined medical consultation today. She will need nutrition consult. Rhogam q12 weeks. Normal [facility] Java Swing Developer Authentication Interface Message Text Met with patient and FOB Titi Seo for PROM at 19 weeks- confirmed yesterday Medical, surgical and family hx reviewedrH negative- Last rHogam 10/22 per ptMarginal previa- reports intermittent bleeding since 7 weeks.Denies abdominal pain, fever. Started on Zithromax yesterdayPsycho/Social risk:Support System: FOBFinancial Stressors: deniesFamily Dynamics: lives with FOB and daughterBehavioral Health Issues: deniesWork History: full timeType of Work: Bringrs Information on [facility] services given.Consent to share information with [facility] team, OB and welder/fitter signed. Pt would like to Transfer care to our practice due to PPROMPediatrician is Dr Jody Ordaz.Does not yet know genderMethod of feeding: breastUltrasound findings today: See report in procedures for details.Met with Neonatology to address plan for -Pt will follow up in 1 week for transfer of careThe total patient time of the visit was 10 minutes, of which greater than 50% ofthe time was spent counseling and coordinating care. Normal [facility] Room Note on 02-27-2017 [facility] Note Normal [facility] ([place]) .Urinalysis Microscopic (AO) on 02-26-2017 UA Squam Epithelial None Seen Normal None Seen [facility] ([place]) Comment on above: Performed By: #### U A, UAMICAO, PREGU ####Marielena [address] [place], [place] [address] UA WBC None Seen Normal None Seen [facility] ([place]) Comment on above: Performed By: #### U A, UAMICAO, PREGU ####Marielena [address] [place], [place] [address] Urine, erythrocytes None Seen Normal None Seen [facility] ([place]) Comment on above: Performed By: #### U A, UAMICAO, PREGU ####Marielena [address] [place], [place] [address] PREGUon 02-26-2017 HCG ( test) Ql (U) Negative Normal [facility] ([place]) Comment on above: Performed By: #### U A, UAMICAO, PREGU ####Marielena [address] [place], [place] [address] test (u) int HCG not detected. Invalid Interpretation Code [facility] ([place]) Comment on above: Performed By: #### U A, UAMICAO, PREGU ####Marielena [address] [place] [address] Patient Summary Documentson 02-26-2017 Patient Summary Documents Normal [facility] ([place]) UAon 02-26-2017 UA Appear CLEAR [facility] ([place]) Comment on above: Performed By: #### U A, UAMICAO, PREGU ####Marielena [address] [place] [address] UA Blood Negative [facility] ([place]) Comment on above: Performed By: #### U A, UAMICAO, PREGU ####Mariel[address] [place] [address] UA Leuk Est Negative [facility] ([place]) Comment on above: Performed By: #### U A, UAMICAO, PREGU ####Marielena [address] [place] [address] UA Nitrite Negative [facility]) Comment on above: Performed By: #### U A, UAMICAO, PREGU ####Marielena [address] [place] [address] UA pH 6.0 [facility]) Comment on above: Performed By: #### U A, UAMICAO, PREGU ####Marielena [address] [place] [address] UA Protein Negative [facility] ([place]) Comment on above: Performed By: #### U A, UAMICAO, PREGU ####Marielena [address] [place] [address] UA Spec Grav <=1.005 [facility] ([place]) Comment on above: Performed By: #### U A, UAMICAO, PREGU ####Marielena [address] [place] [address] UA Specimen Type Clean Catch [facility] ([place]) Comment on above: Performed By: #### U A, UAMICAO, PREGU ####Marileena [address] [place] [address] UA Urobilinogen 0.2 E.U./dL Normal [facility] ([place]) Comment on above: Performed By: #### U A, UAMICAO, PREGU ####Marielena [address] [place], [place] [address] Urine, color YELLOW Normal [facility] ([place]) Comment on above: Performed By: #### U A, UAMICAO, PREGU ####Marielena [address] [place], [place] [address] Urine, glucose Negative Normal [facility] ([place]) Comment on above: Performed By: #### U A, UAMICAO, PREGU ####Marielena [address] [place], [place] [address] Urine, ketones presence Negative Normal A [facility] ([place]) Comment on above: Performed By: #### U A, UAMICAO, PREGU ####[address] [place], [place] [address] Urine, urobilinogen Negative Normal [facility] ([place]) Comment on above: Performed By: #### U A, UAMICAO, PREGU ####[address] [place], [place] [address] Vital Signs Date Time Vital Sign Value Performing Clinician Facility 10-05-2024 18:09-0400 Body temperature 96.9 [degF] Dr. Abhi Cooper DO Work Phone: [facility] 10-05-2024 18:09-0400 Diastolic blood pressure 78 mm[Hg] Dr. Abhi Cooper DO Work Phone: [facility] 10-05-2024 18:09-0400 Heart rate 68 /min Dr. Abhi Cooper DO Work Phone: [facility] 10-05-2024 18:09-0400 Respiratory rate 13 /min Dr. Abhi Cooper DO Work Phone: [facility] 10-05-2024 18:09-0400 SaO2% (BldA) [Mass fraction] 99 % Dr. Abhi Cooper DO Work Phone: [facility] 10-05-2024 18:09-0400 Systolic blood pressure 142 mm[Hg] Dr. Abhi Cooper DO Work Phone: [facility] 10-05-2024 16:55-0400 Body height 175.[address] Abhi Cooper DO Work Phone: [facility] 10-05-2024 16:55-0400 Body mass index (BMI) [Ratio] 44.6 kg/m2 Dr. Abhi Cooper DO Work Phone: [facility] 10-05-2024 16:55-0400 Body weight 136.[address] Abhi Cooper DO Work Phone: [facility] 09-28-2024 16:43-0400 Body height 175.[address] Abhi Cooper DO Work Phone: [facility] 09-28-2024 16:43-0400 Body mass index (BMI) [Ratio] 43.6 kg/m2 Dr. Abhi Cooper DO Work Phone: [facility] 09-28-2024 16:43-0400 Body temperature 97.2 [degF] Dr. Abhi Cooper DO Work Phone: [facility] 09-28-2024 16:43-0400 Body weight [address] Abhi Cooper DO Work Phone: [facility] 09-28-2024 16:43-0400 Diastolic blood pressure 72 mm[Hg] Dr. Abhi Cooper DO Work Phone: [facility] 09-28-2024 16:43-0400 Heart rate 70 /min Dr. Abhi Cooper DO Work Phone: [facility] 09-28-2024 16:43-0400 Respiratory rate 18 /min Dr. Abhi Cooper DO Work Phone: [facility] 09-28-2024 16:43-0400 SaO2% (BldA) [Mass fraction] 100 % Dr. Abhi Cooper DO Work Phone: [facility] 09-28-2024 16:43-0400 Systolic blood pressure 154 mm[Hg] Dr. Abhi Cooper DO Work Phone: 7(600)995-834308 [place] [address] 09-24-2024 16:50-0400 Body height 175.[address] Abhi Cooper DO Work Phone: 3(539)084-435908 [place] [address] 09-24-2024 16:50-0400 Body mass index (BMI) [Ratio] 43.9 kg/m2 Dr. Abhi Cooper DO Work Phone: 1(723)486-775008 [place] [address] 09-24-2024 16:50-0400 Body temperature 98.2 [degF] Dr. Abhi Cooper DO Work Phone: 7(263)862-721708 [place] [address] 09-24-2024 16:50-0400 Body weight 135.[address] Abhi Cooper DO Work Phone: 0(933)657-647808 [place] [address] 09-24-2024 16:50-0400 Diastolic blood pressure 70 mm[Hg] Dr. Abhi Cooper DO Work Phone: 4(803)676-551008 [place] [address] 09-24-2024 16:50-0400 Heart rate 66 /min Dr. Abhi Cooper DO Work Phone: 2(902)118-655208 [place] [address] 09-24-2024 16:50-0400 Respiratory rate 12 /min Dr. Abhi Cooper DO Work Phone: 8(017)473-308208 [place] [address] 09-24-2024 16:50-0400 SaO2% (BldA) [Mass fraction] 100 % Dr. Abhi Cooper DO Work Phone: 5(564)819-668908 [place] [address] 09-24-2024 16:50-0400 Systolic blood pressure 124 mm[Hg] Dr. Abhi Cooper DO Work Phone: 6(294)[phone] [place] [address] 09-21-2024 18:33-0400 Body height 175.[address] Abhi Cooper DO Work Phone: 7(105)873-187908 [place] [address] 09-21-2024 18:33-0400 Body mass index (BMI) [Ratio] 43.9 kg/m2 Dr. Abhi Cooper DO Work Phone: [facility] 09-21-2024 18:33-0400 Body temperature 97.6 [degF] Dr. Abhi Cooper DO Work Phone: [facility] 09-21-2024 18:33-0400 Body weight 135.[address] Abhi Cooper DO Work Phone: [facility] 09-21-2024 18:33-0400 Diastolic blood pressure 99 mm[Hg] Dr. Abhi Cooper DO Work Phone: [facility] 09-21-2024 18:33-0400 Heart rate 79 /min Dr. Abhi Cooper DO Work Phone: [facility] 09-21-2024 18:33-0400 Respiratory rate 15 /min Dr. Abhi Cooper DO Work Phone: [facility] 09-21-2024 18:33-0400 SaO2% (BldA) [Mass fraction] 99 % Dr. Abhi Cooper DO Work Phone: [facility] 09-21-2024 18:33-0400 Systolic blood pressure 134 mm[Hg] Dr. Abhi Cooper DO Work Phone: [facility] 04-29-2024 13:22-0400 Body height 175.3 cm Shay Izquierdo MD Work Phone: [facility] 04-29-2024 13:22-0400 Body mass index (BMI) [Ratio] 43.86 kg/m2 Shay Izquierdo MD Work Phone: [facility] 04-29-2024 13:22-0400 Body weight 134.72 kg Shay Izquierdo MD Work Phone: [facility] 04-29-2024 13:22-0400 Diastolic blood pressure 81 mm[Hg] Shay Izquierdo MD Work Phone: [facility] 04-29-2024 13:22-0400 Systolic blood pressure 121 mm[Hg] Shay Izquierdo MD Work Phone: [facility] 04-22-2024 12:55-0400 Body height 175.3 cm Jason Castro APRN - FRANNY Work Phone: [facility] 04-22-2024 12:55-0400 Body mass index (BMI) [Ratio] 43.86 kg/m2 Jason Castro [employer]MAN - [employer] Work Phone: [facility] 04-22-2024 12:55-0400 Body weight 134.72 kg Jason Castro [employer] Work Phone: [facility] 04-22-2024 12:55-0400 Diastolic blood pressure 80 mm[Hg] Jason Castro [employer] Work Phone: [facility] 04-22-2024 12:55-0400 Heart rate 72 /min Jason Castro APRN - FRANNY Work Phone: [facility] 04-22-2024 12:55-0400 Systolic blood pressure 129 mm[Hg] Jason Castro APRN - [employer] Work Phone: [facility] 04-16-2024 17:35-0400 Diastolic blood pressure 112 mm[Hg] [facility] 04-16-2024 17:35-0400 Heart rate 81 /min [facility] 04-16-2024 17:35-0400 Respiratory rate 20 /min [facility] 04-16-2024 17:35-0400 SaO2% (BldA) [Mass fraction] 98 % [facility] 04-16-2024 17:35-0400 Systolic blood pressure 160 mm[Hg] [facility] 06-23-2023 14:32-0500 Body mass index (BMI) [Ratio] 44.6 kg/m2 Dr. Wilfredo Fischer Work Phone: [facility] 06-23-2023 14:32-0500 Body temperature 98.6 [degF] Dr. Wilfredo Fischer Work Phone: [facility] 06-23-2023 14:32-0500 Body weight 137.[address] Wilfredo Fischer Work Phone: [facility] 06-23-2023 14:32-0500 Diastolic blood pressure 82 mm[Hg] Dr. Wilfredo Fischer Work Phone: [facility] 06-23-2023 14:32-0500 Heart rate 84 /min Dr. Wilfredo Fischer Work Phone: [facility] 06-23-2023 14:32-0500 Respiratory rate 17 /min Dr. Wilfredo Fischer Work Phone: [facility] 06-23-2023 14:32-0500 SaO2% (BldA) [Mass fraction] 98 % Dr. Wilfredo Fischer Work Phone: [facility] 06-23-2023 14:32-0500 Systolic blood pressure 120 mm[Hg] Dr. Wilfredo Fischer Work Phone: [facility] 06-04-2023 15:07-0500 Body temperature 98.4 [degF] Dr. Wilfredo Fischer Work Phone: [facility] 06-04-2023 15:07-0500 Body weight 137.[address] Wilfredo Fischer Work Phone: [facility] 06-04-2023 15:07-0500 Diastolic blood pressure 78 mm[Hg] Dr. Wilfredo Fischer Work Phone: [facility] 06-04-2023 15:07-0500 Heart rate 80 /min Dr. Wilfredo Fischer Work Phone: [facility] 06-04-2023 15:07-0500 Respiratory rate 14 /min Dr. Wilfredo Fischer Work Phone: [facility] 06-04-2023 15:07-0500 SaO2% (BldA) [Mass fraction] 99 % Dr. Wilfredo Fischer Work Phone: [facility] 06-04-2023 15:07-0500 Systolic blood pressure 115 mm[Hg] Dr. Wilfredo Fischer Work Phone: [facility] 04-20-2023 15:59-0400 Body mass index (BMI) [Ratio] 45 kg/m2 Dr. Wilfredo Fischer Work Phone: [facility] 04-20-2023 15:59-0400 Body temperature 99.1 [degF] Dr. Wilfredo Fischer Work Phone: [facility] 04-20-2023 15:59-0400 Body weight 138.[address] Wilfredo Fischer Work Phone: [facility] 04-20-2023 15:59-0400 Diastolic blood pressure 70 mm[Hg] Dr. Wilfredo Fiscehr Work Phone: [facility] 04-20-2023 15:59-0400 Heart rate 76 /min Dr. Wilfredo Fischer Work Phone: [facility] 04-20-2023 15:59-0400 Respiratory rate 17 /min Dr. Wilfredo Fischer Work Phone: [facility] 04-20-2023 15:59-0400 SaO2% (BldA) [Mass fraction] 99 % Dr. Wilfredo Fischer Work Phone: [facility] 04-20-2023 15:59-0400 Systolic blood pressure 120 mm[Hg] Dr. Wilfredo Fischer Work Phone: [facility] 04-08-2023 15:53-0400 Body mass index (BMI) [Ratio] 45.1 kg/m2 Dr. Wilfredo Fischer Work Phone: [facility] 04-08-2023 15:53-0400 Body temperature 98.6 [degF] Dr. Wilfredo Fischer Work Phone: [facility] 04-08-2023 15:53-0400 Body weight 138.[address] Wilfredo Fischer Work Phone: [facility] 04-08-2023 15:53-0400 Diastolic blood pressure 68 mm[Hg] Dr. Wilfredo Fischer Work Phone: [facility] 04-08-2023 15:53-0400 Heart rate 96 /min Dr. Wilfredo Fischer Work Phone: [facility] 04-08-2023 15:53-0400 Respiratory rate 17 /min Dr. Wilfredo Fischer Work Phone: [facility] 04-08-2023 15:53-0400 SaO2% (BldA) [Mass fraction] 98 % Dr. Wilfredo Fischer Work Phone: [facility] 04-08-2023 15:53-0400 Systolic blood pressure 128 mm[Hg] Dr. Wilfredo Fischer Work Phone: [facility] 03-18-2023 11:15-0400 Body mass index (BMI) [Ratio] 44 kg/m2 Dr. Wilfredo Fischer Work Phone: [facility] 03-18-2023 11:15-0400 Body temperature 98.2 [degF] Dr. Wilfredo Fischer Work Phone: [facility] 03-18-2023 11:15-0400 Body weight 135.[address] Wilfredo Fischer Work Phone: [facility] 03-18-2023 11:15-0400 Diastolic blood pressure 70 mm[Hg] Dr. Wilfredo Fischer Work Phone: [facility] 03-18-2023 11:15-0400 Heart rate 84 /min Dr. Wilfredo Fischer Work Phone: [facility] 03-18-2023 11:15-0400 Respiratory rate 17 /min Dr. Wilfredo Fischer Work Phone: [facility] 03-18-2023 11:15-0400 SaO2% (BldA) [Mass fraction] 99 % Dr. Wilfredo Fischer Work Phone: [facility] 03-18-2023 11:15-0400 Systolic blood pressure 116 mm[Hg] Dr. Wilfredo Fischer Work Phone: [facility] 02-24-2023 09:16-0400 Body height 175.[address] Wilfredo Fischer Work Phone: [facility] 02-24-2023 09:16-0400 Body mass index (BMI) [Ratio] 44 kg/m2 Dr. Wilfredo Fischer Work Phone: [facility] 02-24-2023 09:16-0400 Body temperature 98.6 [degF] Dr. Wilfredo Fischer Work Phone: [facility] 02-24-2023 09:16-0400 Body weight 135.[address] Wilfredo Fischer Work Phone: [facility] 02-24-2023 09:16-0400 Diastolic blood pressure 80 mm[Hg] Dr. Wilfredo Fischer Work Phone: [facility] 02-24-2023 09:16-0400 Heart rate 102 /min Dr. Wilfredo Fischer Work Phone: [facility] 02-24-2023 09:16-0400 Respiratory rate 17 /min Dr. Wilfredo Fischer Work Phone: [facility] 02-24-2023 09:16-0400 SaO2% (BldA) [Mass fraction] 97 % Dr. Wilfredo Fischer Work Phone: [facility] 02-24-2023 09:16-0400 Systolic blood pressure 116 mm[Hg] Dr. Wilfredo Fischer Work Phone: [facility] 02-06-2023 11:02-0400 Body height 175.3 cm Wilfredo Fischer DO Work Phone: [facility] 02-06-2023 11:02-0400 Body mass index (BMI) [Ratio] 43.86 kg/m2 Wilfredo Fischer DO Work Phone: [facility] 02-06-2023 11:02-0400 Body temperature 96.91 [degF] Wilfredo Fischer DO Work Phone: [facility] 02-06-2023 11:02-0400 Body weight 134.72 kg Wilfredo Fischer DO Work Phone: [facility] 02-06-2023 11:02-0400 Diastolic blood pressure 88 mm[Hg] Wilfredo Fischer DO Work Phone: [facility] 02-06-2023 11:02-0400 Heart rate 88 /min Wilfredo Fischer DO Work Phone: [facility] 02-06-2023 11:02-0400 SaO2% (BldA) [Mass fraction] 97 % Wilfredo Fischer DO Work Phone: [facility] 02-06-2023 11:02-0400 Systolic blood pressure 134 mm[Hg] Wilfredo Fischer DO Work Phone: [facility] 08-01-2022 08:40-0500 Body height 175.3 cm Wilfredo Fischer DO Work Phone: [facility] 08-01-2022 08:40-0500 Body mass index (BMI) [Ratio] 44.01 kg/m2 Wilfredo Fischer DO Work Phone: [facility] 08-01-2022 08:40-0500 Body temperature 97.11 [degF] Wilfredo Fischer DO Work Phone: [facility] 08-01-2022 08:40-0500 Body weight 135.17 kg Wilfredo Fischer DO Work Phone: [facility] 08-01-2022 08:40-0500 Diastolic blood pressure 82 mm[Hg] Wilfredo Fischer DO Work Phone: [facility] 08-01-2022 08:40-0500 Heart rate 87 /min Wilfredo Fischer DO Work Phone: [facility] 08-01-2022 08:40-0500 SaO2% (BldA) [Mass fraction] 97 % Wilfredo Fischer DO Work Phone: [facility] 08-01-2022 08:40-0500 Systolic blood pressure 119 mm[Hg] Wilfredo Fischer DO Work Phone: [facility] 11-13-2020 14:06-0400 Body temperature 98.01 [degF] [facility] Work Phone: 11-13-2020 14:06-0400 Diastolic blood pressure 78 mm[Hg] [facility] Work Phone: 11-13-2020 14:06-0400 Heart rate 78 /min [facility] Work Phone: 11-13-2020 14:06-0400 Respiratory rate 18 /min [facility] Work Phone: 11-13-2020 14:06-0400 Systolic blood pressure 120 mm[Hg] [facility] Work Phone: 11-13-2020 11:54-0400 SaO2% (BldA) [Mass fraction] 97 % [facility] Work Phone: 11-13-2020 11:41-0400 Body height 175.3 cm [facility] Work Phone: 11-13-2020 11:41-0400 Body mass index (BMI) [Ratio] 31.9 kg/m2 [facility] Work Phone: 11-13-2020 11:41-0400 Body weight 97.98 kg [facility] Work Phone: 08-09-2020 14:12-0500 Body Temperature 98.01 [degF] Niurka Rivas [facility] Work Phone: 08-09-2020 14:12-0500 BP Diastolic 86 mm[Hg] Niurka Rivas [facility] Work Phone: 08-09-2020 14:12-0500 BP Systolic 154 mm[Hg] Niurka Rivas [facility] Work Phone: 08-09-2020 14:12-0500 Pulse (Heart Rate) 66 /min Niurka AMARO Work Phone: 08-09-2020 14:12-0500 Pulse Oximetry 100 % Niurka AMARO Work Phone: 08-09-2020 14:12-0500 Respiratory Rate 18 /min Niurka AMARO Work Phone: Encounters Encounter Date Encounter Type Care Provider Facility Start: 10-05-2024 End: 10-05-2024 Emergency department patient visit Dr. Abhi Cooper DO Work Phone: -Emergency Department Work Phone: Start: 10-05-2024 End: 10-05-2024 ambulatory No Primary Care Physician Facility:[facility] Start: 09-28-2024 End: 09-28-2024 Emergency department patient visit Dr. Abhi Cooper DO Work Phone: -Emergency Department Work Phone: Start: 09-28-2024 End: 09-28-[address] Abhi Cooper DO -Emergency Department Work Phone: Start: 09-28-2024 End: 09-28-2024 ambulatory No Primary Care Physician Facility:[facility] Start: 09-24-2024 End: 09-24-2024 Emergency department patient visit Dr. Abhi Cooper DO Work Phone: -Emergency Department Work Phone: Start: 09-24-2024 End: 09-24-[address] Abhi Cooper DO -Emergency Department Work Phone: Start: 09-24-2024 End: 09-24-2024 ambulatory No Primary Care Physician Facility:[facility] Start: 09-21-2024 End: 09-21-2024 Emergency department patient visit Dr. Abhi Cooper DO Work Phone: -Emergency Department Work Phone: Start: 04-29-2024 End: 04-29-2024 Office outpatient new 30 minutes Shay Izquierdo MD Work Phone: [facility] Comment on above: Tear of left acetabu lar labrum, initial encounter (Primary Dx); Left hip pain; Tendinopathy of gluteus medius Start: 04-29-2024 End: 04-29-2024 Subsequent hospital visit by physician Shay Izquierdo MD Work Phone: [facility] Comment on above: Left hip pain Start: 04-29-2024 End: 04-29-2024 [facility] Start: 04-22-2024 End: 04-22-2024 Office outpatient new 45 minutes Jason Castro [employer] Work Phone: [facility] Comment on above: Lumbar pain (Primary Dx); Lumbar radiculopathy; Lumbar spondylosis; Degeneration of intervertebral disc of lumbar region with discogenic back pain and lower extremity pain; Left hip pain Start: 04-22-2024 End: 04-22-2024 ambulatory JASON CASTRO [facility] Start: 04-16-2024 End: 04-16-2024 Emergency department patient visit W[facility]FREDO [facility]ISCHER [facility] Comment on above: Acute low back pain with sciatica, sciatica laterality unspecified, unspecified back pain laterality (Primary Dx) Start: 06-26-2023 End: 06-26-[address] Wilfredo Fischer Work Phone: [facility] Work Phone: Start: 06-26-2023 End: 06-26-[address] Wilfredo Fischer Work Phone: [facility] Work Phone: Start: 06-23-2023 End: 06-23-[address] Wilfredo Fischer Work Phone: [facility] Work Phone: Start: 06-04-2023 End: 06-04-[address] Wilfredo Fischer Work Phone: [facility] Work Phone: Start: 04-20-2023 End: 04-20-[address] Wilfredo Fischer Work Phone: [facility] Work Phone: Start: 04-08-2023 End: 04-08-[address] Wilfredo Fischer Work Phone: [facility] Work Phone: Start: 04-08-2023 Refill Wilfredo carrillo DO Work Phone: [facility] Start: 03-27-2023 End: 03-27-[address] Wilfredo Fischer Work Phone: [facility] Work Phone: Start: 03-18-2023 End: 03-18-[address] Wilfredo Fischer Work Phone: [facility] Work Phone: Start: 03-12-2023 End: 03-12-[address] Wilfredo Fischer Work Phone: [facility] Work Phone: Start: 03-12-2023 End: 03-12-[address] Wilfredo Fischer Work Phone: [facility] Work Phone: Start: 03-05-2023 Refill Wilfredo carrillo DO Work Phone: [facility] Start: 02-27-2023 End: 02-27-[address] Wilfredo Fischer Work Phone: [facility] Work Phone: Start: 02-24-2023 End: 02-24-[address] Wilfredo Fischer Work Phone: [facility] Work Phone: Start: 02-06-2023 End: 02-06-2023 Office outpatient visit 25 minutes Wilfredo Viera Amado DO Work Phone: [facility] Comment on above: Essential hypertensi on (Primary Dx); Idiopathic neuropathy Start: 01-15-2023 Orders Only Wilfredo Maximiliano Kev carrillo DO Work Phone: [facility] Comment on above: Anxiety (Primary Dx) Start: 01-01-2023 Telephone encounter Wilfredo Maximiliano Dominick etrilla DO Work Phone: [facility] Comment on above: Referral Extension Start: 01-01-2023 End: 01-01-2023 Subsequent hospital visit by physician Wilfredo Fischer DO Work Phone: [facility] Comment on above: Paresthesia of upper extremity; Abnormal NCS (nerve conduction studies) Start: 12-31-2022 Refill Wilfredo Maximiliano Kev carrillo DO Work Phone: [facility] Start: 10-20-2022 Telephone encounter Wilfredo Maximiliano Dominick etrilla DO Work Phone: [facility] Comment on above: Orders (MRI C Spine) Start: 10-09-2022 Telephone encounter Wilfredo Maximiliano Dominick etrilla DO Work Phone: [facility] Comment on above: Orders (EMG/NCS B/L Upper) Start: 08-03-2022 Telephone encounter Wilfredo Maximiliano Dominick etrilla DO Work Phone: [facility] Start: 08-01-2022 End: 08-01-2022 Office outpatient visit 15 minutes Wilfredo Fischer DO Work Phone: [facility] Comment on above: Lumbar radiculopathy , chronic (Primary Dx); Paresthesia of upper extremity; Class 3 severe obesity due to excess calories with serious comorbidity and body mass index (BMI) of 40.0 to 44.9 in adult ([facility]) Start: 07-18-2022 End: 07-18-2022 Subsequent hospital visit by physician Wilfredo Fischer DO Work Phone: [facility] Comment on above: Tactile hypesthesia; Lumbar radiculopathy; Bilateral hip pain Start: 07-08-2022 Telephone encounter Wilfredo Tan etrilorena DO Work Phone: [facility] Comment on above: Missed Call Start: 07-03-2022 Orders Only Wilfredo Maximiliano carrillo DO Work Phone: [facility] Comment on above: Tactile hypesthesia (Primary Dx); Lumbar radiculopathy Start: 04-17-2022 Transcribe Orders Wilfredo ward DO Work Phone: [facility] Comment on above: Cough, unspecified ( Primary Dx) Start: 04-13-2022 Transcribe Orders Wilfredo ward DO Work Phone: [facility] Comment on above: Cough, unspecified ( Primary Dx) Start: 03-21-2022 ambulatory Wilfredo Fischer [facility] Start: 03-21-2022 End: 03-21-2022 Subsequent hospital visit by physician Wilfredo Fischer DO Work Phone: [facility] Comment on above: Cough Start: 09-27-2021 ambulatory Mignonrubin Morales [facility] Start: 09-27-2021 End: 09-27-2021 Subsequent hospital visit by physician Mignon Morales PA-C Work Phone: [facility] Start: 09-13-2021 End: 09-13-2021 Subsequent hospital visit by physician Mignon Morales PA-C Work Phone: [facility] Start: 09-06-2021 End: 09-06-2021 Subsequent hospital visit by physician Mignon Morales PA-C Work Phone: [facility] Start: 08-28-2021 End: 08-28-2021 Subsequent hospital visit by physician Mignon Morales PA-C Work Phone: [facility] [place] [facility] Start: 07-03-2021 End: 07-03-2021 Subsequent hospital visit by physician Mignon Morales PA-C Work Phone: [facility] [place] [facility] Start: 06-03-2021 End: 06-03-2021 ambulatory UNKNOWN PROVIDER [facility] Start: 05-17-2021 ambulatory UNKNOWN PROVIDER [facility] Start: 11-13-2020 End: 11-13-2020 Emergency department patient visit [facility] [place] [facility] Comment on above: Mouth pain (Primary Dx); Throat pain Start: 10-29-2020 End: 10-29-2020 Subsequent hospital visit by physician Pinky Romero MD Work Phone: [facility] Comment on above: Instability of right shoulder joint Start: 10-05-2020 End: 10-05-2020 Subsequent hospital visit by physician iPnky Romero Work Phone: [facility] [place] [facility] Start: 09-21-2020 End: 09-21-2020 Subsequent hospital visit by physician Pinky Romero Work Phone: [facility] [place] [facility] Start: 09-10-2020 End: 09-10-2020 Subsequent hospital visit by physician Pinky Romero Work Phone: [facility] Start: 08-09-2020 End: 08-09-2020 Emergency department patient visit Niurka Rivas Work Phone: [facility] Comment on above: Acute pain of right shoulder (Primary Dx) Start: 02-16-2018 End: 02-16-2018 Patient encounter GENA ADORNO [facility] Start: 01-18-2018 End: 01-18-2018 Patient encounter LUIS FERNANDO [place] [facility] Start: 01-01-2018 RhD negative Niurka Rivas [facility] Work Phone: Start: 12-02-2017 End: 12-02-2017 Patient encounter MIGNON HESS [facility] Start: 11-25-2017 End: 11-26-2017 Patient encounter MIGNON GREENE [facility] Start: 11-25-2017 Patient encounter MIGNON HESS [facility] Start: 11-16-2017 Patient encounter JANEY GRANADO [facility] Start: 11-09-2017 Patient encounter MIGNON GREENE [facility] Start: 11-04-2017 End: 11-05-2017 Patient encounter SARITHA CROFT [facility] Start: 11-04-2017 Patient encounter MING Bass [facility] Start: 02-26-2017 End: 02-26-2017 Emergency department patient visit TRICE ZAFAR Facility:B Procedures Date Procedure Procedure Detail Performing Clinician Start: 03-27-2023 MRI of brain with contrast Dr. Wilfredo Fischer Work Phone: Start: 08-01-2022 Comprehensive metabo lic panel Wilfredo Fischer DO Work Phone: Start: 03-21-2022 Lipid 1996 panel - S fer or Plasma Wilfredo Fischer DO Work Phone: Start: 10-29-2020 Mri any jt upper ext remity w/contrast matrl Pinky Romero MD Work Phone: Start: 10-29-2020 Arthrocentesis aspir &/inj major jt/bursa w/o us Pinky Romero MD Work Phone: Start: 08-09-2020 Radex shoulder compl ete minimum 2 views Niurka Rivas Work Phone: Start: 08-19-2017 Microscopic observat ion [Identifier] in Cervix by Cyto stain Mignon Morales PA-C Work Phone: Plan of Treatment Date Care Activity Detail Author Start: 2064 RSV Immunization for Adults (1 - 1-dose 75+ series) RSV Immunization for Adults (1 - 1-dose 75+ series) [facility] Start: 2049 RSV Immunization age d 60 or older (1 - 1-dose 60+ series) RSV Immunization aged 60 or older (1 - 1-dose 60+ series) [facility] Start: 2039 Zoster Vaccines (1 of 2) Zoste r Vaccines (1 of 2) [facility] Start: 01-02-2028 DTaP/Tdap/Td vaccine (2 - Td) DTaP/Tdap/Td vaccine (2 - Td) [facility] Work Phone: Start: 01-02-2028 DTaP/Tdap/Td vaccine (3 - Td or Tdap) DTaP/Tdap/Td vaccine (3 - Td or Tdap) [facility] Start: 01-02-2028 DTaP/Tdap/Td vaccine (3 - Td) DTaP/Tdap/Td vaccine (3 - Td) [facility] Work Phone: Start: 01-02-2028 DTaP/Tdap/Td Vaccine s (3 - Td or Tdap) DTaP/Tdap/Td Vaccines (3 - Td or Tdap) [facility] Start: 03-21-2027 Lipid panel Lipid Panel [facility] Start: 10-05-2024 [facility] Start: 09-28-2024 [facility] Start: 09-24-2024 [facility] Start: 09-21-2024 [facility] Start: 04-29-2024 End: 04-29-2024 Patient encounter procedure 04/29/2024 1:15 PM EDT Office Visit [facility] Orthopedics Paul Zelaya [facility] [place] [id number] Shay Izquierdo MD [facility] [place] [address] [facility] Orthoped[facility] Paul [place] Start: 04-26-2024 End: 07-27-2024 XR Hip - left 3 Views XR hip left 2 or 3 views Imaging Routine Left hip pain Expected: 04/26/2024, Expires: 07/27/2024 [facility] Work Phone: Comment on above: Expected: 04/26/2024 , Expires: 07/27/2024 Start: 02-28-2024 COVID-19 Vaccine ( season) COVID-19 Vaccine ( season) [facility] Start: 02-28-2024 COVID-19 Vaccine ( season) COVID-19 Vaccine () [facility] Start: 02-28-2024 Influenza vaccination Influenza Vacc ine (#1) [facility] Start: 08-01-2023 Diabetes mellitus screening Diabetes Screening [facility] Start: 03-21-2023 Depression Screen Depression Screen [facility] Start: 03-21-2023 Influenza vaccination Flu vaccine (# 1) [facility] Comment on above: Postponed from 02/27 (Patient Refused) Start: 03-12-2023 Repair Specialist stdy unatnd w/mi n hrt rate/o2 sat/resp anal CORONER STDY [facility] Start: 02-27-2023 Influenza vaccination [facility] Start: 01-16-2023 End: 01-16-2023 Patient encounter procedure 01/16/2023 1:15 PM EDT Appointment [facility] [address] [place] [id number] Wilfredo Fischer, DO [address] [place], [place] [phone] [facility] Start: 01-01-2023 End: 01-01-2023 Patient encounter procedure 01/01/2023 1:00 PM EDT Appointment [facility] [address] [place] [phone] Wilfredo Fischer, DO [address], [place] [id number] [facility] Start: 10-20-2022 End: 10-21-2023 MR Cervical spine WO contrast MR cervical spine wo contrast Imaging Routine Lumbar radiculopathy, chronic Expected: 10/20/2022, Expires: 10/21/2023 [facility] Work Phone: Comment on above: Expected: 10/20/2022 , Expires: 10/21/2023 Start: 10-09-2022 End: 10-10-2023 NERVE CONDUCTION TEST WITH EMG NERVE CONDUCTION TEST WITH EMG Neurology Routine Paresthesia of upper extremity Expected: 10/09/2022 (Approximate), Expires: 10/10/2023 [facility] Work Phone: Comment on above: Expected: 10/09/2022 (Approximate), Expires: 10/10/2023 Start: 08-01-2022 End: 08-01-2023 XR Cervical spine 4 or 5 Views XR cervical spine complete 4 to 5 views Imaging Routine Paresthesia of upper extremity Expected: 08/01/2022, Expires: 08/01/2023 [facility] Work Phone: Comment on above: Expected: 08/01/2022 , Expires: 08/01/2023 Start: 07-03-2022 End: 07-03-2023 XR Lumbar spine 4 Views XR lumbar spine complete 4+ views Imaging Routine Tactile hypesthesia Lumbar radiculopathy Expected: 07/03/2022, Expires: 07/03/2023 [facility] Work Phone: Comment on above: Expected: 07/03/2022 , Expires: 07/03/2023 Start: 06-25-2022 COVID-19 Vaccine (#1) COVID-19 Vacci ne (#1) [facility] Comment on above: Postponed from 12/30 (Patient Refused) Start: 05-31-2022 Creatinine measurement Creatinine mo nitoring [facility] Start: 05-31-2022 Potassium monitoring Potassium monit oring [facility] Start: 05-02-2022 End: 05-02-2022 Patient encounter procedure 05/02/2022 Office Visit Family Medicine Wilfredo Fischer, DO [address] [place] [address] [facility] Start: 02-27-2022 Influenza vaccination Influenza Vacc ine (#1) [facility] Start: 11-20-2021 End: 11-20-2021 Patient encounter procedure 11/20/2021 Office Visit Orthopedic Surgery Nelson Brown MD [address] [facility] [address] [place] [address] [facility] [place] Start: 07-10-2021 End: 07-10-2021 Patient encounter procedure 07/10/2021 Office Visit Orthopedic Surgery Mignon Morales PA-C [address] [facility] [address] [place] [address] [facility] [place] Start: 02-27-2021 Influenza vaccination [facility] Start: 10-11-2020 End: 10-11-2020 Office Visit 10/11/2020 Office Visit Sports Medicine Pinky Romero MD [address] [facility] [address] [place], [place] [id number] [facility] [place] Start: 08-19-2020 Screening for malign ant neoplasm of cervix [facility] Start: 02-28-2020 Influenza vaccination Flu vaccine (# 1) [facility] Work Phone: Start: 2019 Screening for malign ant neoplasm of cervix [facility] Start: 2010 Screening for malign ant neoplasm of cervix Pap Smear [facility] Start: 2008 Hepatitis B Vaccines (1 of 3 - 19+ 3-dose series) Hepatitis B Vaccines (1 of 3 - 19+ 3-dose series) [facility] Start: 2007 Hepatitis C screening [facility] Start: 2005 COVID-19 Vaccine (1) COVID-19 Vaccin e (1) [facility] Work Phone: Start: 2002 Varicella vaccination Varicell a Vaccines (1 of 2 - 13+ 2-dose series) [facility] Start: 2001 COVID-19 Vaccine (1) COVID-19 Vaccin e (1) [facility] Work Phone: Start: 2001 Depression Screen Depression Screen [facility] Start: 2001 Depression Screening Depression Scre ening [facility] Start: 1995 Pneumococcal 0-64 ye ars Vaccine (1 - PCV) Pneumococcal 0-64 years Vaccine (1 - PCV) [facility] Start: 1995 Pneumococcal 0-64 ye ars Vaccine (1 of 1 - PPSV23) Pneumococcal 0-64 years Vaccine (1 of 1 - PPSV23) [facility] Work Phone: Start: 1995 Pneumococcal 0-64 ye ars Vaccine (1 of 2 - PPSV23) Pneumococcal 0-64 years Vaccine (1 of 2 - PPSV23) [facility] Start: 1995 Pneumococcal Vaccine : Pediatrics (0 to 5 Years) and At-Risk Patients (6 to 64 Years) (1 - PCV) Pneumococcal Vaccine: Pediatrics (0 to 5 Years) and At-Risk Patients (6 to 64 Years) (1 - PCV) [facility] Start: 1995 Pneumococcal Vaccine : Pediatrics (0 to 5 Years) and At-Risk Patients (6 to 64 Years) (1 of 2 - PCV) Pneumococcal Vaccine: Pediatrics (0 to 5 Years) and At-Risk Patients (6 to 64 Years) (1 of 2 - PCV) [facility] Start: 1994 COVID-19 Vaccine (1) COVID-19 Vaccin e (1) [facility] Start: 1990 MMR Vaccines (1 of 1 - Standard series) MMR Vaccines (1 of 1 - Standard series) [facility] Start: 1990 Varicella vaccination Varicell a Vaccines (1 of 2 - 2-dose childhood series) [facility] Start: 1990 Varicella vaccine (1 of 2 - 2-dose childhood series) Varicella vaccine (1 of 2 - 2-dose childhood series) [facility] Start: 1989 COVID-19 Vaccine (#1) COVID-19 Vacci ne (#1) [facility] Start: 1989 Hepatitis B Vaccines (1 of 3 - 3-dose series) Hepatitis B Vaccines (1 of 3 - 3-dose series) [facility] Start: 1989 Hepatitis C screening Hepatitis C sc reen [facility] Start: 1989 HIV screening HIV Screening [facility] He alth MR Brain WO and W contrast IV [facility] End: 01-01-2023 MR Cervical spine WO contrast MR cervical spine wo contrast Imaging Routine Paresthesia of upper extremity Abnormal NCS (nerve conduction studies) Once for 1 Occurrences starting 01/01/2023 until 01/01/2023 [facility] Work Phone: Comment on above: Once for 1 Occurrenc es starting 01/01/2023 until 01/01/2023 OUTSIDE PROCEDURE SCAN OUTSIDE P ROCEDURE SCAN Procedures Ordered: 07/18/2022 [facility] Comment on above: Ordered: 07/18/2022 Patient referral [facility] Work Phone: Polysomnography [facility] Polysomnography [facility] Pulmonary function test Pulmonar y function test PFT Routine Cough, Unspecified Ordered: 04/13/2022 [facility] Work Phone: Comment on above: Ordered: 04/13/2022 End: 03-21-2022 XR CHEST (2 VW) [facility] Work Phone: Comment on above: 1 Occurrences starti ng 03/21/2022 until 03/21/2022 End: 04-29-2024 XR Hip - left 3 Views [facility] Comment on above: Once for 1 Occurrenc es starting 04/29/2024 until 04/29/2024 End: 07-18-2022 XR hips bilateral 5+ views [facility] Comment on above: Once for 1 Occurrenc es starting 07/18/2022 until 07/18/2022 End: 07-18-2022 XR Lumbar spine 4 Views [facility] Work Phone: Comment on above: Once for 1 Occurrenc es starting 07/18/2022 until 07/18/2022 End: 10-29-2020 XR SHOULDER ARTHROGRAM RIGHT S&I XR SHOULDER ARTHROGRAM RIGHT S&I Imaging Routine Instability of right shoulder joint 1 Occurrences starting 10/29/2020 until 10/29/2020 [facility] Work Phone: Comment on above: 1 Occurrences starti ng 10/29/2020 until 10/29/2020 Immunizations Immunization Date Immunization Notes Care Provider Jo deng 10-05-2024 rabies vaccine, for intramuscular injection Dr. Abhi Cooper DO Work Phone: [facility] 09-28-2024 rabies vaccine, for intramuscular injection Dr. Abhi Cooper DO Work Phone: [facility] 09-24-2024 rabies vaccine, for intramuscular injection Dr. Abhi Cooper DO Work Phone: [facility] 09-21-[address] Milvia Cooper DO Work Phone: [facility] 09-21-2024 rabies vaccine, for intramuscular injection Dr. Abhi Cooper DO Work Phone: [facility] 09-21-2024 tetanus toxoid, reduced diphtheria toxoid, and acellular pertussis vaccine, adsorbed Dr. Abhi Cooper DO Work Phone: [facility] 01-01-2018 tetanus toxoid, reduced diphtheria toxoid, and acellular pertussis vaccine, adsorbed Niurka AMARO Work Phone: 06-18-2015 influenza virus vaccine, unspecified formulation Wilfredo Fischer DO Work Phone: [facility] Work Phone: 06-18-2015 influenza, injectabl e, quadrivalent, contains preservative Wilfredo Fischer DO Work Phone: [facility] 06-18-2015 influenza, injectabl e, quadrivalent, preservative free Dr. Wilfredo Fischer Work Phone: [facility] 06-18-2015 influenza, seasonal, injectable, preservative free Wilfredo Angulolljared DO Work Phone: [facility] 10-03-2013 tetanus toxoid, reduced diphtheria toxoid, and acellular pertussis vaccine, adsorbed Wilfredo Fischer DO Work Phone: [facility] Work Phone: NEGATED: Highlighted row has not occurred!01-01-2018 measles, mumps and rubella virus vaccine Niurka AMARO Comment on above: Deferred: - immune Payers Date Payer Category Payer Self-pay [id number] 2024 Unknown [id number] 2018 Medicaid [id number] 2016 Unknown [id number] 1989 Unknown [id number] 2.16. [id number] 1989 Unknown [id number] 2.16. [id number] 1989 Unknown [id number] 2.16. [id number] 1989 Unknown [id number] 2.16. [id number] Unknown Unknown MINOR [id number] Unknown [id number] 2.16.8 [id number] Unknown [id number] 2.16.8 [id number] Unknown [id number] [id number] Unknown [id number] [id number] Social History Date Type Detail Facility Start: 09-16-2016 End: 08-09-2020 Tobacco smoking status [facility] Light tobacco smoker [facility] Start: 08-09-2020 End: 03-21-2022 Tobacco use and exposure Never used [facility] Phone: Start: 08-09-2020 End: 11-13-2020 Alcohol intake Current non-drinker of alcohol (finding) [facility] Phone: Start: 12-05-2017 End: 03-21-2022 Tobacco Comment only smokes when she has a drink [facility] Phone: Start: 1990 Sex Assigned At Not on file [facility] [employer] Work Phone: Start: 06-10-2021 End: 02-06-2023 Exposure to SARS-CoV-2 (event) Not sure [facility] Work Phone: Start: 06-12-2021 End: 07-06-2022 Alcohol intake Current drinker of alcohol (finding) [facility] Work Phone: Start: 06-03-2021 History SDOH Alcohol Comment occ [facility] Work Phone: Start: 03-21-2022 End: 09-21-2024 Tobacco smoking status NHIS Occasional tobacco smoker [facility] Phone: History of tobacco use Cigarette Smoker [employer] Work Phone: Start: 03-21-2022 End: 07-06-2022 Cigarettes smoked current (pack per day) - Reported 0.5 [facility] Phone: Start: 03-21-2022 History SDOH Alcohol Frequency 3 [facility] Phone: Start: 03-21-2022 History SDOH Alcohol Std Drinks 2 [facility] Phone: Start: 03-21-2022 History SDOH Social Connections Phone 5 [facility] Phone: Start: 03-21-2022 History SDOH Social Connections Congregational 1 [facility] Work Phone: Start: 03-21-2022 History SDOH Social Connections Living 8 [facility] Work Phone: Start: 03-21-2022 History SDOH Physica l Activity DPW 0 [facility] Phone: Start: 12-31-2022 End: 03-19-2023 Tobacco use panel [facility] Start: 04-17-2022 Gender identity Identifies as female gender (finding) [facility] Start: 02-24-2023 End: 06-23-2023 Tobacco smoking status NHIS Unknown if ever smoked [facility] Start: 1990 Sex Assigned At Female W [facility] Start: 01-27-2022 End: 10-05-2024 Sex Female (finding) [facility] Clinical Notes 04-05-2021 to 09-21-2024 Note Date & Type Note Facility 09-21-2024 Discharge summary [facility] 09-21-2024 Discharge summary Note Date/Time September 21, 2024 9:48pm [facility] Medical Records Department [address] [place] [address] Emergency Department Summary 09/21/24 MR#: [id number] Acct: [id number] Name: CHERYL WOOD Rep #:[id number] : 1990 34 From: Abhi Cooper DO PCP: Care Physician,No Primary Status :REG ER Location: ED HPI History of Present Illness Chief Complaint: Bite Narrative Narrative: Patient is a 34-year-old female with no known significant past medical history who presents to the emergency department with a chief complaint of cat bite to the right hand. Patient states that she is unsure of the cats rabies vaccine status. They know that the cat had vaccine in the past but does not know the current state. 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 She states that she was concerned as they owners the cat took it with them and is unsure if they will get the rabies testing or not and is requesting the rabies vaccine here in the emergency department. Patient states that she does not know when her last tetanus shot was. [facility] Medical History Fatigue delivery delivered Home Medications ?Medication ?Instructions ?Recorded ?Last Taken ?Type Lactobacillus acidophilus 1 1,000 mmu cells PO DAILY 0 02/24/23 Unknown History billion cell capsule (Probiotic Gold Acidophilus) albuterol sulfate 90 mcg/actuation 2 puff inhalation Q 6H PRN 02/24/23 Unknown History aerosol inhaler flurbiprofen 100 mg tablet 100 mg PO TID PRN pain #90 tabs 02/24/23 Unknown Rx mometasone-formoterol HFA 200 2 puff inhalation BID Unknown History mcg-5 mcg/actuation aerosol inhaler (Dulera) alprazolam 1 mg tablet 1 mg .Route .COMPLEX #1 TAB 02/25/23 Unknown Rx cephalexin 250 mg capsule 250 mg PO Q6H #28 caps 04/08 Unknown Rx acetazolamide 250 mg tablet 250 mg PO BID #60 tabs Unknown Rx Allergy/AdvReac Type Severity Reaction Status Date / Time minocycline AdvReac Severe Hives Verified 09/21/24 18:36 Surgical History Status post labral repair of shoulder Social History Smoking Status: Current some day smoker tobacco type: cigarettes ROS ROS ED ROS Narrative Constitutional: Denies fevers, chills, headaches Neurological: Denies numbness, weakness, tingling Skin: Complains of cat bite to the right hand as noted above EXAM Physical Exam Narrative Exam Narrative: General: Patient l sitting at bedside in chair did not appear to be in acute distress Head: Atraumatic, normocephalic Eyes: PERRL bilaterally, EOMI bilateral, no conjunctival injection noted Neck: Soft, supple, trachea midline Cardiovascular: Regular rate and rhythm no murmurs gallops rubs noted Extremities: +5/5 strength noted in bilateral upper and lower extremities, radial pulse +2/4 in the bilateral extremities Neurological: Patient follow commands that she was at [facility] year is 2024. Sensation grossly intact in the median ulnar radial nerve distributions bilaterally Skin: Patient has small abrasions to the right hand and the index and middle finger no active bleeding noted Const Vital Signs: 09/21/24 18:33 Temperature 97.6 F L Temperature Source Temporal Pulse Rate 79 Respiratory Rate 15 Blood Pressure 134/99 H Blood Pressure Mean 110 Pulse Ox 99 Oxygen Delivery Method Room Air MDM MDM MDM Narrative Medical decision making narrative: Patient is a 34-year-old female who presented to the emerged part with a concernfor being bitten by a cat and wanting the rabies vaccine series. This will be ordered. Patient's tetanus shot will be updated. I ordered an x-ray of her hand and she is refusing this I advised her that there is a chance we are missing a retained foreign body in her hand she verbalized understanding of thisand understand that this is placing her at high risk for infection even more so if there is a retained foreign body however she still does not want the hand x-ray. Patient was given the rabies vaccine as well as tetanus shot was updated she wasgiven her first dose of Augmentin here in the emergency department. Patient be on prescription for Augmentin and was advised to watch out for signs infection while on the antibiotic such as surrounding redness or purulent drainage for this is to occur she was advised to return to the emergency department. She wasadvised to follow-up with corporate care. She is encouraged to return with any other concerns she is agreeable this plan all question concerns answered she wasdischarged home in stable condition. Discharge Plan Triage Chief Complaint: Bite ED Provider: Abhi Cooper Dx/Rx/DC Orders Clinical Impression: Cat bite Prescriptions: No Action albuterol sulfate 90 mcg/actuation HFA aerosol inhaler 2 puff inhalation Q6H PRN Dulera 200-5 mcg/actuation HFA aerosol inhaler 2 puff inhalation BID Probiotic Gold Acidophilus 1 billion cell capsule 1,000 mmu cells PO DAILY flurbiprofen 100 mg tablet 100 mg PO TID PRN (Reason: pain) Qty: 90 4RF alprazolam 1 mg tablet 1 mg .ROUTE .COMPLEX Qty: 1 0RF Rx Instructions: Take 1 tablet x1 orally 30 minutes prior to MRI. cephalexin 250 mg capsule 250 mg PO Q6H Qty: 28 0RF acetazolamide 250 mg tablet 250 mg PO BID Qty: 60 1RF Primary Care Provider: Care Physician,No Primary Referrals: Care Physician,No Primary [Primary Care Provider] - Ebony Blood, SOLVENT RECOVERER-C [[facility]] - Activity Restrictions/Additional Instructions: Follow schedule that you are given for the rabies vaccine series. Take antibiotics as prescribed if you develop surrounding redness or purulent drainage while on antibiotics you need to return to the emergency department. Follow-up your primary care physician or if you not having you referred to 1. Return with any other concerns. Your tetanus shot was updated today. Print Language: Japanese Disposition Disposition: Home, Self Care What to do if you have Problems For any increased pain, shortness of breath, bleeding, nausea or vomiting, chestpain, or any unexpected problems, contact your Primary Care Provider. Call [facility] ([phone]) or report to the closest Emergency Room. Call 911 if necessary. [id number]/21/[id number] <Electronically signed by Abhi Cooper DO> Cosigner Signature (if applicable): CC: No Primary Care Physician ~ Signed [facility] Work Phone: 1(918) 568-848511-01-2024 History of Present illness Narrative* Shay Izquierdo MD - 04/29/2024 1:15 PM EDT Images from the original note were not included. [facility] [place] [address] [place] [address] [place] [address] Dept: [phone] Dept Chief Complaint Patient presents with New Patient Hip Pain Left Subjective History of Present Illness: Cheryl Wood is a 33 y.o. female who presents today for evaluation of left hip pain. Location: lateral, medial, posterior, and deep Onset: 1 year, chronic Injury: 10 years ago she strained her hip flexor Quality: aching, throbbing, sharp, and stabbing Mechanical symptoms: popping, crepitus, grinding, catching, and locking Radiation of symptoms: yes - into her left knee Severity: 0/10 at rest and 7/10 at worst Exacerbating factor(s): repetitive use and sitting on the ground, sitting style, getting on the bed with one leg with one leg bent Relieving factor(s): diclofenac Timing: depends on how she is sitting Imaging to date: X-ray April 2024 Treatment to date: PT/OT/HEP: no but she has for her back and shoulder Ice: no Heat: no Medications: Tylenol: no NSAIDs: yes, Ibuprofen/Motrin/Advil and Diclofenac/Voltaren, helpful Oral steroids: no Muscle relaxants: flexeril, and robaxin but she hasn't taken it Nerve medications: no Targeted injections: none Assistive devices: none Prior surgery: no 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 Respiratory: Breathing comfortably on room air. No respiratory distress. Skin: Warm, dry, intact. No visible rashes or erythema overlying area of focused exam. Physical Exam Musculoskeletal: Left hip: Tenderness present. Decreased range of motion. Decreased strength. Comments: Positive Andreea, positive FADIR, weakness with iliopsoas, weakness with gluteus medius, External Notes No pertinent interval updates Labs Lab Results Component Value Date HGBA1C 4.9 08/01/2022 Lab Results Component Value Date CREATININE 1.11 (H) 08/01/2022 Imaging Images reviewed with patient today I have personally reviewed the images pertinent to the appointment today EMG/NCT No interval studies Procedure No procedures completed today Assessment Diagnosis Plan 1. Tear of left acetabular labrum, initial encounter Ambulatory referral to Physical Therapy 2. Left hip pain XR hip left 2 or 3 views [facility] Ambulatory referral to Physical Therapy 3. Tendinopathy of gluteus medius Plan -Discussed with the patient the nature of hip labral tear pathology. -Discussed hip imaging results with patient. -Discussed options for activity modification. -Discussed possible treatment modalities including relative rest, home exercise program, formal physical therapy, anti-inflammatories, Tylenol, surgery.. -Questions answered. -Written patient information provided in the AVS. -We will proceed with course of formal physical therapy. If symptoms are unresponsive we will follow-up and have her obtain an MRI to further evaluate the extent of her labral tear for possible surgical planning. Performed per above procedure note. -Will prescribe PT. No follow-ups on file. Shay Izquierdo MD 04/29/2024 1:15 PM Please note that portions of this note may have been completed with voice recognition software. Documentation reviewed prior to signing but minor errors in harp action assembler may have occurred. documented in this [facility]11-01-2024 Instructions* Patient Instructions* Shay Izquierdo MD - 04/29/2024 1:15 PM EDT Images from the original note were not included. Pick 2-4 of these exercises and begin doing them daily. The next day, pick a different 2-4 exercises, so at the end of the week you have completed most of them on the list. The second to last exercise, the single leg squat, also known as a pistol, is the most difficult one on the list a few never get to this exercise that's okay. All of these exercises can also be modified to decrease the difficulty level. It's okay to start off easy and gradually make them more difficult as her core strength increases. documented in this [facility]10-25-2024 History of Present illness Narrative* Jason Castro APRN - KNUCKLE BENDER - 04/22/2024 1:00 PM EDT Images from the original note were not included. 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 female who is here today for evaluation of her lumbar spine. Cheryl is referred by Gissel Hernandez, LEX Current symptoms: Pain is located in the left lumbar area, left gluteal area, or across the lower back that is radiating Posterior, to gastroc . Numbness tingling: yes - in gluteal and down leg Weakness: affirms JACE: lifting a heavy object; basement door, metal Duration of symptoms/DOI: 6 month(s), pain exacerbated this week, when she went to open a [employer] 4U basement door, and was stuck. Symptoms are moderately affecting their quality of life. Associated neurologic complaints/Red flags: Gait/balance difficulty: admits to feeling wobbly Use of ambulatory aid?: no device Able to walk a city block: Yes Bowel/bladder incontinence: denies Urinary retention: No Saddle anesthesia: Yes Fine motor task difficulty/dropping things/handwriting changes: denies History of cancer: No Aggravating factors: increased intrathoracic pressure (cough, sneeze, etc.), sitting, walking, and laying supine Alleviating Factors: OTC NSAIDS Do your symptoms improve with lying on your back or side: get worse supine, sleeps on right side Previous Treatment: PT: No NSAIDS: Diclofenac (Voltaren) Injections: No Opioid medications: none Muscle relaxers: cyclobenzaprine (Flexeril) Oral steroids: none Nerve medications (gabapentin/Lyrica): none Pain management: No Chiropractor: No Previous spine surgery: None History of DVT/PE or hypercoagulable state (including history of relative): No Blood thinning medications: none Work Status: [employer], 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 Is this a work related injury? No Review of Systems Tobacco Use: High Risk (03/19/2023) Patient History Smoking Tobacco Use: Some Days Smokeless Tobacco Use: Never Passive Exposure: Not on file Lab Results Component Value Date HGBA1C 4.9 08/01/2022 Allergies Allergen Reactions Minocycline Hives Hives swelling Nickel Current Outpatient Medications Medication Sig Dispense Refill adapalene (Differin) 0.3 % gel albuterol 108 (90 Base) MCG/ACT inhaler inhale 2 puffs every 6 hours if needed for shortness of breath or wheezing 8.5 g 2 Dulera 200-5 MCG/ACT inhaler Inhale 2 puffs in the morning and 2 puffs in the evening. Rinse mouth with water after use to reduce aftertaste and incidence of candidiasis. Do not swallow.. 13 g 1 Probiotic Product (PROBIOTIC-10 ULTIMATE PO) Take by mouth. diclofenac (Voltaren) 75 MG EC tablet Take 1 tablet (75 mg) by mouth 2 times daily. Do not crush, chew, or split. 60 tablet 0 methocarbamol (Robaxin) 750 MG tablet Take 1 tablet (750 mg) by mouth 3 times daily as needed for muscle spasms. 90 tablet 0 spironolactone (Aldactone) 100 MG tablet Take 1 tablet (100 mg) by mouth daily for 30 doses. 30 tablet 5 No current facility-administered medications for this visit. Past Medical History: Diagnosis Date Acne Aldactone therapy Essential hypertension 2021 Family history of diabetes mellitus in father Fracture of distal end of tibia Idiopathic neuropathy 02/06/2023 Recurrent symptoms. Unsure of etiology. Await neurology consultation Labile hypertension 2020 Mild intermittent asthma without complication 2007 Perfume and cold air triggers Pseudotumor cerebri 2018 post papilledema,- neg MRI head and LP- ophtho workup at [facility] Rh incompatibility Smoker socially Past Surgical History: Procedure Laterality Date SECTION (HISTORICAL) SECTION (HISTORICAL) DENTAL SURGERY SHOULDER ARTHROSCOPY W/ LABRAL REPAIR Right 05/2021 Dr. Brown Social History Socioeconomic History Marital status: Single Spouse name: Not on file Number of children: Not on file Years of education: Not on file Highest education level: Not on file Occupational History Not on file Tobacco Use Smoking status: Some Days Current packs/day: 0.50 Types: Cigarettes Smokeless tobacco: Never Substance and Sexual Activity Alcohol use: Yes Alcohol/week: 3.0 standard drinks of alcohol Drug use: No Sexual activity: Not on file Other Topics Concern Not on file Social History Narrative Single, live in [facility], has 2 dtrs and raising Nephew , occasional smoker, no ETOH use, 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 Overall Financial Resource Strain ([facility]) Difficulty of Paying Living Expenses: Not hard at all Food Insecurity: No Food Insecurity (03/21/2022) Received from [facility] Hunger Vital Sign Worried About Running Out of Food in the Last Year: Never true Ran Out of Food in the Last Year: Never true Transportation Needs: No Transportation Needs (03/21/2022) Received from [facility] PRAPARE - Transportation Lack of Transportation (Medical): No Lack of Transportation (Non-Medical): No Physical Activity: Inactive (03/21/2022) Received from [facility] Exercise Vital Sign Days of Exercise per Week: 0 days Minutes of Exercise per Session: 0 min Stress: No Stress Concern Present (03/21/2022) Received from [facility] [employer] - Occupational Stress Questionnaire Feeling of Stress : Only a little Social Connections: Moderately Isolated (03/21/2022) Received from [facility] Social Connection and Isolation Panel [NHANES] Frequency of Communication with Friends and Family: More than three times a week Frequency of Social Gatherings with Friends and Family: Once a week Attends Pentecostalism Services: Never Active Member of Clubs or Organizations: No Attends Club or Organization Meetings: Never Marital Status: Living with partner Intimate Partner Violence: Not At Risk (03/21/2022) Received from [facility] Humiliation, Afraid, Rape, and Kick questionnaire Fear of Current or Ex-Partner: No Emotionally Abused: No Physically Abused: No Sexually Abused: No Housing Stability: Not on file Family History Problem Relation Name Age of Onset No Known Problems Mother Gael More ([employer]ATO LOADER at [employer]) Heart disease Father Sae COPD Father Sae smoker Diabetes Father Sae No Known Problems Sister No Known Problems Sister No Known Problems Brother No Known Problems Daughter Premature Daughter Cancer Father's Brother Lung Multiple sclerosis Maternal Grandmother Lung cancer Maternal Grandmother Eye cancer Maternal Grandfather Diabetes Maternal Grandfather Kidney disease Maternal Grandfather Pancreatic cancer Maternal Grandfather Emphysema Paternal Grandmother Prostate cancer Paternal Grandfather PHYSICAL EXAM BP 129/80 Pulse 72 Ht 5' 9 (1.753 m) Wt 297 lb (135 kg) BMI 43.86 kg/m SPINE/EXTREMITY: General: Patient is in no apparent distress. Gait is nonantalgic, nonassisted. She is able to toe walk and heel walk. Moderate tenderness to palpation on lumbar spine. Lower Extremity Motor: HF Q TA EHL Peroneals GSC Right 4+ 5 5 5 5 5 Left 4+ 5 5 5 5 5 Lower extremity sensation to light touch: L2 L3 L4 L5 S1 Right Intact Intact Intact Intact Intact Left Intact Decreased Intact Decreased Intact Lower extremity reflexes: Patellar Achilles Right 1+ 1+ Left 1+ 1+ Straight leg raise: Right Negative Left Positive Misc: Clonus Right None Left None Hip exam: Bilateral hip range of motion is full and symmetric. Pain elicited with internal and external rotation of left hip. IMAGING Lumbar Spine: Date of Exam: 04/22/24 Views: Lumbar 4V xrays (AP/LAT/FLEX/EXT) Findings: There is no aortic calcification noted. The bilateral hip joint spaces are observed with no significant degenerative changes noted. The bilateral SI joints are also observed with no significant degenerative changes noted. There is no loss of lumbar lordosis. There are five non rib-bearinglumbar vertebrae. Vertebral body heights maintained throughout the lumbar spine. There is no acute fracture or bony abnormality noted. Disc space is well maintained with mild degenerative changes at L5- S1. There are mild spondylitic changes and facet arthropathy noted. There is no listhesis noted on flexion/extension radiographs. NCT/EMG (Copied Impression) Date: none DEXA Date: ASSESSMENT See problem list above. Cheryl is a 33 y.o. female presenting with lumbar pain, lumbar radiculopathy, left. The patient is here today as an emergency room follow-up from 04/16/2024 where she presented with low back pain with bilateral lower extremity radicular symptoms. She was evaluated and released with Flexeril and diclofenac. Since that time, the patient reports her back pain is slightly improved. She is no longer having right leg radicular symptoms but continues to have radicular symptoms in her left leg. Today she describes her pain as a deep ache in her low back that will radiate into her leftglute and down the lateral aspect of her left leg to her left knee. She reports having chronic low back pain and with left lower extremity radicular symptoms. At times, she will have numbness and tingling that radiates down the anterior aspect of her left leg to her left swanson. She denies having anyloss of bowel or bladder function, saddle paresthesia, worsening balance, worsening hand dexterity or hand strength issues, or significant symptoms of neurogenic claudication. I had a discussion with Cheyrl Omid Wood about her symptoms. We independently reviewed her imaging from today which revealed mild degenerative disc disease at L5-S1, mild lumbar spondylosis. Her imaging and clinical exam reveals symptoms of lumbar radiculopathy. We reviewed the symptoms of lumbar radiculopathy. We went over the natural history and the treatment of lumbar radiculopathy. This problem is very common. It generally responds to conservative management. The conservative management includes medications, injections, exercise, rn care manager, acupuncture, massage therapy, and phys ical therapy. We also discussed the surgical treatment of lumbar radiculopathy. If the symptoms do not respond to conservative treatment the patient is a candidate for surgical intervention. The decision to proceed with surgery is a quality of life issue. The patient can continue conservative treatment as long as he or she wants. We discussed that a lumbar decompression is better at relieving theleg symptoms as compared to the back pain. The surgery may not affect the back pain at all. The patient seems to understand their diagnosis as well as the treatment options. All questions were answered to the best of my ability. The patient has not tried physical therapy for this issue. She is currently taking Flexeril and diclofenac with some improvement in her symptoms. She is willing to try an increase in the dosage of diclofenac as well as changing the muscle relaxer to Robaxin as the Flexeril does make her tired. She is also willing to try home exercises along with physical therapy. The patient reports that she willbe obtaining insurance next week so she should be able to do outpatient physical therapy. If she does not have improvement in her symptoms after 6 weeks of physical therapy I would be happy to see her back to discuss possibly ordering a lumbar spine MRI without contrast to evaluate for nerve compression. I also feel that she would benefit from referral to sports medicine for evaluation of her left hip. We discussed red flag symptoms to be aware of and when to seek emergent care. IMPRESSION I had a long discussion with Cheryl to make sure she had a good understanding of what I think the main issues and diagnoses are that are affecting her today, and reviewed the plan going forward. PLAN: Refer to Physical Therapy: Lumbar/core - isometric and eccentric focus Postural Stability/Control Hip abductor strengthening - isometric and eccentric focus LE mobility Manual therapy, soft tissue mobilization/release, traction, dry needling, joint mobilizations, modalities, nerve glides, etc. and HEP: Lumbar/core/hip Medication(s): Robaxin and Diclofenac Patient also advised to try OTC tylenol and NSAIDs if not contraindicated Future Imaging: none Sports Medicine referral Left hip Follow up after 6-8 weeks of PT if no improvement with Jason LÓPEZ The risks and appropriate dosing of muscle relaxants (ie Robaxin, Flexeril, etc) were discussed with patient in detail. These include but are not limited to drowsiness, headache, changes in heart rate, dizziness, nausea/vomiting, abdominal pain, constipation, memory problems, and urine discoloration. If any of these side effects are experienced I advised the patient to discontinue the medication and contact both myself and their primary care physician. The risks and appropriate dosing of NSAIDs (ie Meloxicam, Naproxen, Ibuprofen, etc) were discussed with the patient in detail. These include but are not limited to cardiovascular risk, renal toxicity, stomach irritation/refulx and/or peptic ulcer disease. If any of these side effects are experienced I advised the patient to discontinue the medication and contact both myself and their primary carephysician. Electronically signed by LILLIAN Cody CNP 04/22/2024 at 1:45 PM Dictated using [employer] Version 2.4 Proof read however unrecognized voice recognition errors may have occurred documented in this [facility]10-25-2024 Instructions* Patient Instructions* Mignon Szymanski ATC - 04/22/2024 1:00 PM EDT Images from the original note were not included. [facility] at [address] [place] [address] Call central scheduling to schedule new patient appointment [phone] documented in this [facility]10-19-2024 Emergency department Note* Laura Mack RN - 04/16/2024 6:09 PM EDT Clarified with Gissel LUNDBERG that 60mg toradol to be given and dosage was verified Laura Mack RN [facility]/16/241809 [phone] Note* Laura Mack RN - 04/16/2024 6:09 PM EDT Clarified with Gissel LUNDBERG that 60mg toradol to be given and dosage was verified Laura Mack RN 04/16/241809 * Gissel Hernandez PA-C - 04/16/2024 5:33 PM EDT [facility] ED eMERGENCY dEPARTMENT eNCOUnter Pt Name: Cheryl Wood Birthdate 1990 Date of evaluation: 04/16/2024 Provider: Gissel Hernandez PA-C CHIEF COMPLAINT Chief Complaint Patient presents with Back Pain HISTORY OF PRESENT ILLNESS (Location/Symptom, Timing/Onset,Context/Setting, Quality, Duration, Modifying Factors, Severity) Note limiting factors. HPI Cheryl Wood is a 33 y.o. female who presents to the emergency department complaining of severe low back pain with left-sided leg pain that goes from the hip to the ankle and now pain in the right hip and thigh as well. She states she has been having a problem with the pain for a few weeks but today she tried to open the cell or do worse and had immediate increase in pain with the pain going down the right side as well. No loss of bowel or bladder control or urinary retention. No saddle paresthesias. She tried some [id number] medications with no relief of her symptoms. Nursing Notes were reviewed. REVIEW OF SYSTEMS (2+ for4; 10+ for level 5) Review of Systems Constitutional: Negative for chills and fever. HENT: Negative for ear pain and sore throat. Eyes: Negative for pain and visual disturbance. Respiratory: Negative for cough and shortness of breath. Cardiovascular: Negative for chest pain and palpitations. Gastrointestinal: Negative for abdominal pain and vomiting. Genitourinary: Negative for dysuria and hematuria. Musculoskeletal: Positive for back pain. Negative for arthralgias. Skin: Negative for color change and rash. Neurological: Negative for seizures and syncope. All other systems reviewed and are negative. PAST MEDICAL HISTORY Past Medical History: Diagnosis Date Acne Aldactone therapy Essential hypertension 2021 Family history of diabetes mellitus in father Fracture of distal end of tibia Idiopathic neuropathy 02/06/2023 Recurrent symptoms. Unsure of etiology. Await neurology consultation Labile hypertension 2020 Mild intermittent asthma without complication 2007 Perfume and cold air triggers Pseudotumor cerebri 2018 post papilledema,- neg MRI head and LP- ophtho workup at [facility] Rh incompatibility Smoker socially SURGICALHISTORY Past Surgical History: Procedure Laterality Date SECTION (HISTORICAL) SECTION (HISTORICAL) DENTAL SURGERY SHOULDER ARTHROSCOPY W/ LABRAL REPAIR Right 05/2021 Dr. Brown CURRENT MEDICATIONS Discharge Medication List as of 04/16/2024 6:03 PM CONTINUE these medications which have NOT CHANGED Details adapalene (Differin) 0.3 % gel Starting 01/26/2023, Historical Med albuterol 108 (90 Base) MCG/ACT inhaler inhale 2 puffs every 6 hours if needed for shortness of breath or wheezing, Normal Dulera 200-5 MCG/ACT inhaler Inhale 2 puffs in the morning and 2 puffs in the evening. Rinse mouth with water after use to reduce aftertaste and incidence of candidiasis. Do not swallow.., Starting Shell 04/09/2023, Normal Probiotic Product (PROBIOTIC-10 ULTIMATE PO) Take by mouth., Historical Med spironolactone (Aldactone) 100 MG tablet Take 1 tablet (100 mg) by mouth daily for 30 doses., Starting Thu02/06/2023, Until 03/08/2023, Normal Minocycline and Nickel FAMILY HISTORY Family History Problem Relation Name Age of Onset No Known Problems Mother Gale More ([employer]O LOADER at [employer]) Heart disease Father Sae COPD Father Sae smoker Diabetes Father Sae No Known Problems Sister No Known Problems Sister No Known Problems Brother No Known Problems Daughter Premature Daughter Cancer Father's Brother Lung Multiple sclerosis Maternal Grandmother Lung cancer Maternal Grandmother Eye cancer Maternal Grandfather Diabetes Maternal Grandfather Kidney disease Maternal Grandfather Pancreatic cancer Maternal Grandfather Emphysema Paternal Grandmother Prostate cancer Paternal Grandfather SOCIAL HISTORY Social History Socioeconomic History Marital status: Single Tobacco Use Smoking status: Some Days Current packs/day: 0.50 Types: Cigarettes Smokeless tobacco: Never Substance and Sexual Activity Alcohol use: Yes Alcohol/week: 3.0 standard drinks of alcohol Drug use: No Social History Narrative Single, live in [facility], has 2 dtrs and raising Nephew , occasional smoker, no ETOH use, 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 Overall Financial Resource Strain ([facility]) Difficulty of Paying Living Expenses: Not hard at all Food Insecurity: No Food Insecurity (03/21/2022) Received from [facility] Hunger Vital Sign Worried About Running Out of Food in the Last Year: Never true Ran Out of Food in the Last Year: Never true Transportation Needs: No Transportation Needs (03/21/2022) Received from [facility] PRAPARE - Transportation Lack of Transportation (Medical): No Lack of Transportation (Non-Medical): No Physical Activity: Inactive (03/21/2022) Received from [facility] Exercise Vital Sign Days of Exercise per Week: 0 days Minutes of Exercise per Session: 0 min Stress: No Stress Concern Present (03/21/2022) Received from [facility] [employer] - Occupational Stress Questionnaire Feeling of Stress : Only a little Social Connections: Moderately Isolated (03/21/2022) Received from [facility] Social Connection and Isolation Panel [NHANES] Frequency of Communication with Friends and Family: More than three times a week Frequency of Social Gatherings with Friends and Family: Once a week Attends Pentecostalism Services: Never Active Member of Clubs or Organizations: No Attends Club or Organization Meetings: Never Marital Status: Living with partner Intimate Partner Violence: Not At Risk (03/21/2022) Received from [facility] Humiliation, Afraid, Rape, and Kick questionnaire Fear of Current or Ex-Partner: No Emotionally Abused: No Physically Abused: No Sexually Abused: No SCREENINGS PHYSICAL EXAM (5+ for level 4, 8+ for level 5) @EDTRIAGEVSS@ Physical Exam Vitals and nursing note reviewed. Constitutional: General: She is not in acute distress. Appearance: Normal appearance. She is well-developed. HENT: Head: Normocephalic and atraumatic. Eyes: Conjunctiva/sclera: Conjunctivae normal. Cardiovascular: Rate and Rhythm: Normal rate and regular rhythm. Heart sounds: No murmur heard. Pulmonary: Effort: Pulmonary effort is normal. No respiratory distress. Breath sounds: Normal breath sounds. Musculoskeletal: General: No swelling. Comments: Patient does have reproducible tenderness on palpation over the midline lumbar spine and paraspinal musculature into the bilateral SIJ's. Active straight leg raises cause increasing pain bilaterally. Muscular strength is symmetrical and DTRs at 2+/4. Distal pulses are easily palpated. Distal sensory innervation is intact. She is able to go from a seated to a standing position with some discomfort and ambulates with good posture but with very purposeful and steady gait. Skin: General: Skin is warm and dry. Neurological: Mental Status: She is alert and oriented to person, place, and time. Psychiatric: Mood and Affect: Mood normal. Behavior: Behavior normal. DIAGNOSTIC RESULTS EKG (Per Emergency Physician): RADIOLOGY (Per EmergencyPhysician): Interpretation per the Radiologist below, if available at the time of this note: @EDRISRSLT@ : Labs Reviewed - No data to display All other labs were within normal range or not returned as of this dictation. EMERGENCY DEPARTMENT COURSE and DIFFERENTIALDIAGNOSIS/MDM: Vitals: Vitals: 04/16/24 1734 04/16/24 1735 BP: (!) 160/112 Pulse: 92 81 Resp: 20 SpO2: 98% 98% Medications ketorolac (Toradol) injection 60 mg (60 mg IntraMUSCular Given 04/16/241808) orphenadrine (Norflex) injection 60 mg (60 mg IntraMUSCular Given 04/16/241808) Medical Decision Making Problems Addressed: Acute low back pain with sciatica, sciatica laterality unspecified, unspecified back pain laterality: complicated acute illness or injury Risk Prescription drug management. Patient presents to the emergency department complaining of an exacerbation of low back pain with sciatica bilaterally. Patient has had problems with low back pain and sciatica in the left leg. Today, after trying to open up the doors to a storm cellar pain was exacerbated and is now going into theright hip and thigh area as well. No loss of bowel or bladder control. No saddle paresthesias. Differential diagnosis includes acute lumbar strain, acute on chronic low back pain, muscle spasm, bilateral sciatica, and much less concern for cauda equina syndrome Chronic conditions impacting care: Low back pain with left sciatica, asthma, hypertension, pseudotumor cerebri Social determinants affecting health: Nicotine use ED diagnostics: None ED medications included IM Toradol and Norflex. Patient presents with exacerbation of chronic low back pain with sciatica, exacerbated with physical exertion today. She does not present with history or symptoms consistent with cauda equina. She will be discharged home. She is given home-going instructions on low back pain with sciatica. I will send a prescription for Flexeril and Voltaren to her local pharmacy. She can alternate ice and heat to the area. She is to avoid excessive physical activity. She can follow-up with [facility]. She can return should signs and symptoms worsen in any way or any other concerns develop. The patient expressed an understanding of verbal instruction and had no further questions at the time of discharge. This patient was seen by myself, within my scope of practice, with the Emergency Department physician available for consultation at all times if needed. CONSULTS: None PROCEDURES: Unless otherwise noted below, none Procedures Patients symptoms are consistent with sepsis, severe sepsis, or septic shock (If yes use .sepsiscoremeasure): No FINAL IMPRESSION 1. Acute low back pain with sciatica, sciatica laterality unspecified, unspecified back pain laterality DISPOSITION/PLAN DISPOSITION Discharge 04/16/2024 06:01:44 PM PATIENT REFERRED TO: [facility] - [place] [address] [address] [facility] [address] DISCHARGE MEDICATIONS: Discharge Medication List as of 04/16/2024 6:03 PM START taking these medications Details cyclobenzaprine (Flexeril) 10 MG tablet Take 1 tablet (10 mg) by mouth 2 times daily as needed for muscle spasms for up to 10 days., Starting 04/16/2024, Until Thu04/26/2024 at 2359, Normal diclofenac (Voltaren) 50 MG EC tablet Take 1 tablet (50 mg) by mouth 2 times daily as needed (Back Pain) for up to 10 days. Do not crush, chew, or split., Starting 04/16/2024, Until Thu04/26/2024 at 2359, Normal @[facility]([id number]:LAST:1)@ (Please note: Portions of this note were completed with a voice recognition program. Efforts were made to edit thedictations but occasionally words and phrases are mis-transcribed.) Form [id number].[id number] Gissel Hernandez PA-C (electronically signed) Emergency Medicine Provider Gissel Hernandez PA-C 04/16/241958 * Laura Mack RN - 04/16/2024 5:33 PM EDT Pt c.o lower back pain radiating down L leg, states the pain worsened when she opened a door today documented in this [facility]10-19-2024 Emergency department Triage note* Laura Mack RN - 04/16/2024 5:33 PM EDT Pt c.o lower back pain radiating down L leg, states the pain worsened when she opened a door today [id number] Physician Emergency department Note* Gissel Hernandez PA-C - 04/16/2024 5:33 PM EDT [facility] ED eMERGENCY dEPARTMENT eNCOUnter Pt Name: Cheryl Wood Birthdate 1990 Date of evaluation: 04/16/2024 Provider: Gissel Hernandez PA-C CHIEF COMPLAINT Chief Complaint Patient presents with Back Pain HISTORY OF PRESENT ILLNESS (Location/Symptom, Timing/Onset,Context/Setting, Quality, Duration, Modifying Factors, Severity) Note limiting factors. HPI Cheryl Wood is a 33 y.o. female who presents to the emergency department complaining of severe low back pain with left-sided leg pain that goes from the hip to the ankle and now pain in the right hip and thigh as well. She states she has been having a problem with the pain for a few weeks but today she tried to open the cell or do worse and had immediate increase in pain with the pain going down the right side as well. No loss of bowel or bladder control or urinary retention. No saddle paresthesias. She tried some [id number] medications with no relief of her symptoms. Nursing Notes were reviewed. REVIEW OF SYSTEMS (2+ for4; 10+ for level 5) Review of Systems Constitutional: Negative for chills and fever. HENT: Negative for ear pain and sore throat. Eyes: Negative for pain and visual disturbance. Respiratory: Negative for cough and shortness of breath. Cardiovascular: Negative for chest pain and palpitations. Gastrointestinal: Negative for abdominal pain and vomiting. Genitourinary: Negative for dysuria and hematuria. Musculoskeletal: Positive for back pain. Negative for arthralgias. Skin: Negative for color change and rash. Neurological: Negative for seizures and syncope. All other systems reviewed and are negative. PAST MEDICAL HISTORY Past Medical History: Diagnosis Date Acne Aldactone therapy Essential hypertension 2021 Family history of diabetes mellitus in father Fracture of distal end of tibia Idiopathic neuropathy 02/06/2023 Recurrent symptoms. Unsure of etiology. Await neurology consultation Labile hypertension 2020 Mild intermittent asthma without complication 2007 Perfume and cold air triggers Pseudotumor cerebri 2018 post papilledema,- neg MRI head and LP- ophtho workup at [facility] Rh incompatibility Smoker socially SURGICALHISTORY Past Surgical History: Procedure Laterality Date SECTION (HISTORICAL) SECTION (HISTORICAL) DENTAL SURGERY SHOULDER ARTHROSCOPY W/ LABRAL REPAIR Right 05/2021 Dr. Brown CURRENT MEDICATIONS Discharge Medication List as of 04/16/2024 6:03 PM CONTINUE these medications which have NOT CHANGED Details adapalene (Differin) 0.3 % gel Starting 01/26/2023, Historical Med albuterol 108 (90 Base) MCG/ACT inhaler inhale 2 puffs every 6 hours if needed for shortness of breath or wheezing, Normal Dulera 200-5 MCG/ACT inhaler Inhale 2 puffs in the morning and 2 puffs in the evening. Rinse mouth with water after use to reduce aftertaste and incidence of candidiasis. Do not swallow.., Starting Shell 04/09/2023, Normal Probiotic Product (PROBIOTIC-10 ULTIMATE PO) Take by mouth., Historical Med spironolactone (Aldactone) 100 MG tablet Take 1 tablet (100 mg) by mouth daily for 30 doses., Starting Thu02/06/2023, Until 03/08/2023, Normal Minocycline and Nickel FAMILY HISTORY Family History Problem Relation Name Age of Onset No Known Problems Mother Gael More ([employer]O LOADER at [employer]) Heart disease Father Sae COPD Father Sae smoker Diabetes Father Sae No Known Problems Sister No Known Problems Sister No Known Problems Brother No Known Problems Daughter Premature Daughter Cancer Father's Brother Lung Multiple sclerosis Maternal Grandmother Lung cancer Maternal Grandmother Eye cancer Maternal Grandfather Diabetes Maternal Grandfather Kidney disease Maternal Grandfather Pancreatic cancer Maternal Grandfather Emphysema Paternal Grandmother Prostate cancer Paternal Grandfather SOCIAL HISTORY Social History Socioeconomic History Marital status: Single Tobacco Use Smoking status: Some Days Current packs/day: 0.50 Types: Cigarettes Smokeless tobacco: Never Substance and Sexual Activity Alcohol use: Yes Alcohol/week: 3.0 standard drinks of alcohol Drug use: No Social History Narrative Single, live in [facility] [place], has 2 dtrs and raising Nephew , occasional smoker, no ETOH use, 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 Overall Financial Resource Strain (CARDIA) Difficulty of Paying Living Expenses: Not hard at all Food Insecurity: No Food Insecurity (03/21/2022) Re[facility] Hunger Vital Sign Worried About Running Out of Food in the Last Year: Never true Ran Out of Food in the Last Year: Never true Transportation Needs: No Transportation Needs (03/21/2022) Received from [facility] PRAPARE - Transportation Lack of Transportation (Medical): No Lack of Transportation (Non-Medical): No Physical Activity: Inactive (03/21/2022) Received from [facility] Exercise Vital Sign Days of Exercise per Week: 0 days Minutes of Exercise per Session: 0 min Stress: No Stress Concern Present (03/21/2022) [facility] [place] [facility] Occupational [facility] - Occupational Stress Questionnaire Feeling of Stress : Only a little Social Connections: Moderately Isolated (03/21/2022) Received from [facility] Social Connection and Isolation Panel [NHANES] Frequency of Communication with Friends and Family: More than three times a week Frequency of Social Gatherings with Friends and Family: Once a week Attends Pent[employer] Services: Never Active Member of Clubs or Organizations: No Attends Club or Organization Meetings: Never Marital Status: Living with partner Intimate Partner Violence: Not At Risk (03/21/2022) Received from [facility] Humiliation, Afraid, Rape, and Kick questionnaire Fear of Current or Ex-Partner: No Emotionally Abused: No Physically Abused: No Sexually Abused: No SCREENINGS PHYSICAL EXAM (5+ for level 4, 8+ for level 5) [facility] Physical Exam Vitals and nursing note reviewed. Constitutional: General: She is not in acute distress. Appearance: Normal appearance. She is well-developed. HENT: Head: Normocephalic and atraumatic. Eyes: Conjunctiva/sclera: Conjunctivae normal. Cardiovascular: Rate and Rhythm: Normal rate and regular rhythm. Heart sounds: No murmur heard. Pulmonary: Effort: Pulmonary effort is normal. No respiratory distress. Breath sounds: Normal breath sounds. Musculoskeletal: General: No swelling. Comments: Patient does have reproducible tenderness on palpation over the midline lumbar spine and paraspinal musculature into the bilateral SIJ's. Active straight leg raises cause increasing pain bilaterally. Muscular strength is symmetrical and DTRs at 2+/4. Distal pulses are easily palpated. Distal sensory innervation is intact. She is able to go from a seated to a standing position with some discomfort and ambulates with good posture but with very purposeful and steady gait. Skin: General: Skin is warm and dry. Neurological: Mental Status: She is alert and oriented to person, place, and time. Psychiatric: Mood and Affect: Mood normal. Behavior: Behavior normal. DIAGNOSTIC RESULTS EKG (Per Emergency Physician): RADIOLOGY (Per EmergencyPhysician): Interpretation per the Radiologist below, if available at the time of this note: @EDRISRSLT@ : Labs Reviewed - No data to display All other labs were within normal range or not returned as of this dictation. EMERGENCY DEPARTMENT COURSE and DIFFERENTIALDIAGNOSIS/MDM: Vitals: Vitals: 04/16/24 1734 04/16/24 1735 BP: (!) 160/112 Pulse: 92 81 Resp: 20 SpO2: 98% 98% Medications ketorolac (Toradol) injection 60 mg (60 mg IntraMUSCular Given 04/16/24 1809) orphenadrine (Norflex) injection 60 mg (60 mg IntraMUSCular Given 04/16/24 180) Medical Decision Making Problems Addressed: Acute low back pain with sciatica, sciatica laterality unspecified, unspecified back pain laterality: complicated acute illness or injury Risk Prescription drug management. Patient presents to the emergency department complaining of an exacerbation of low back pain with sciatica bilaterally. Patient has had problems with low back pain and sciatica in the left leg. Today, after trying to open up the doors to a storm cellar pain was exacerbated and is now going into theright hip and thigh area as well. No loss of bowel or bladder control. No saddle paresthesias. Differential diagnosis includes acute lumbar strain, acute on chronic low back pain, muscle spasm, bilateral sciatica, and much less concern for cauda equina syndrome Chronic conditions impacting care: Low back pain with left sciatica, asthma, hypertension, pseudotumor cerebri Social determinants affecting health: Nicotine use ED diagnostics: None ED medications included IM Toradol and Norflex. Patient presents with exacerbation of chronic low back pain with sciatica, exacerbated with physical exertion today. She does not present with history or symptoms consistent with cauda equina. She will be discharged home. She is given home-going instructions on low back pain with sciatica. I will send a prescription for Flexeril and Voltaren to her local pharmacy. She can alternate ice and heat to the area. She is to avoid excessive physical activity. She can follow-up with [facility]. She can return should signs and symptoms worsen in any way or any other concerns develop. The patient expressed an understanding of verbal instruction and had no further questions at the time of discharge. This patient was seen by myself, within my scope of practice, with the Emergency Department physician available for consultation at all times if needed. CONSULTS: None PROCEDURES: Unless otherwise noted below, none Procedures Patients symptoms are consistent with sepsis, severe sepsis, or septic shock (If yes use .sepsiscoremeasure): No FINAL IMPRESSION 1. Acute low back pain with sciatica, sciatica laterality unspecified, unspecified back pain laterality DISPOSITION/PLAN DISPOSITION Discharge 04/16/2024 06:01:44 PM PATIENT REFERRED TO: [facility] - [address] [address] DISCHARGE MEDICATIONS: Discharge Medication List as of 04/16/2024 6:03 PM START taking these medications Details cyclobenzaprine (Flexeril) 10 MG tablet Take 1 tablet (10 mg) by mouth 2 times daily as needed for muscle spasms for up to 10 days., Starting 04/16/2024, Until Tu04/26/2024 at 2359, Normal diclofenac (Voltaren) 50 MG EC tablet Take 1 tablet (50 mg) by mouth 2 times daily as needed (Back Pain) for up to 10 days. Do not crush, chew, or split., Starting 04/16/2024, Until 04/26/2024 at 2359, Normal @[facility]([id number]:LAST:1)@ (Please note: Portions of this note were completed with a voice recognition program. Efforts were made to edit thedictations but occasionally words and phrases are mis-transcribed.) Form v2016.J.[id number] Gissel Hernandez PA-C (electronically signed) Emergency Medicine Provider Gissel Hernandez PA-C 04/16/241958 [id number] History of Present illness Narrative* Wilfredo Viera Amado, DO - 02/06/2023 11:00 AM EDT Images from the original note were not included. [facility] [address] [place] [id number] Visit type: Established Patient Reason for Visit: [...] hypertension presents to discuss ongoing symptoms of neuropathy.Presented about a year ago with bilateral sensitivity to her lateral thighs. Work-up at that time showed a nonspecific neuropathy. Lumbar x-rays were milligram remarkable. She then presented months later with upper extremity tingling particular the left shoulder down to the fourth and fifth fingersof the left hand. EMG of the upper extremities also showed neuropathy. Suggestive of cervical neuropathy but recent MRI of the cervical spine essentially unremarkable. History of pseudotumor cerebri but has had work-up by neuro-ophthalmology. Last evaluation about a year ago. Reversible medical causes have been excluded. Of note she is scheduled to see Neurologist, Dr. Garvey in [place] in about 2 weeks. 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) Heart disease Father Sae COPD Father Sae [...] Pupils equal. Extraocular muscles are intact. Negative Spurling's.Entire upper and lower extremity strength is normal. No fasciculations. No Judith's or Babinski. Toes downgoing and no clonus. Xbkzin-sn-xgfx, tandem and Romberg testing is normal. Recheck blood pressure slightly elevated. Reviewed multiple studies including cervical MRI. EMG of the upper or lower extremities. Lumbar back x-rays. Reviewed lab work. documented in this encounterSSelect [id number] Telephone encounter Note* Telephone Encounter - Jane Downs - 01/01/2023 3:04 PM EDT Extension's new tracking # [id number] Auth # [id number] good until 01/31/23. Pt advised and is going to schedule herself [facility] [id number] Miscellaneous Notes* Telephone Encounter - Jane Downs - 01/01/2023 3:04 PM EDT Extension's new tracking # [id number] Auth # [id number] good until 01/31/23. Pt advised and is going to schedule herself * Telephone Encounter - Fe Mclean - 01/01/2023 9:08 AM EDT Name of caller: Susy Contact phone number: [phone] Relationship to Patient: patient Provider: Dr. Fischer Practice: [facility] Chief Complaint/Reason for Call: The patient is [...] return their call: No documented in this encounterSSelect Medical Specialty Hospital - [id number] Telephone encounter Note* Telephone Encounter - Fe Mclean - 01/01/2023 9:08 AM EDT Name of caller: Susy Contact phone number: [phone] Relationship to Patient: patient Provider: Dr. Fischer Practice: [facility] Chief Complaint/Reason for Call: The patient is [...] business hours to return their call: No [facility] HospitalErlcje78-00-3075 Telephone encounter Note* Telephone Encounter - Shannon Butt MA - 12/31/2022 12:31 PM EDT Rx loaded [facility] [id number] Miscellaneous Notes* Telephone Encounter - Shannon Butt MA - 12/31/2022 12:31 PM EDT Rx loaded documented in this [facility]06-05-2023 Note* Addendum Note - Briseyda Dubois - 12/01/2022 3:51 PM EDTAddended by: BRISEYDA DUBOIS on: 12/01/2022 03:51 PM Modules accepted: Orders [facility] [id number] Miscellaneous Notes* Addendum Note - Briseyda Dubois - 12/01/2022 3:51 PM EDTAddended by: BRISEYDA DUBOIS on: 12/01/2022 03:51 PM Modules accepted: Orders * Telephone Encounter - Kacey Means - 10/20/2022 12:30 PM EDT Orders pended for doctor signature * Telephone Encounter - Kacey Means - 10/20/2022 12:25 PM EDT ----- Message from Shannon Butt MA sent at 10/20/2022 11:21 AM EDT ----- Patient was given the number to schedule with neuro patient would like the MRI of cervical spine. documented in this [facility]04-24-2023 Telephone encounter Note* Telephone Encounter - Kacey Means - 10/20/2022 12:30 PM EDT Orders pended for doctor signature [place] [id number] Miscellaneous Notes* Telephone Encounter - Kacey Means - 10/20/2022 12:30 PM EDT Orders pended for doctor signature * Telephone Encounter - Kacey Means - 10/20/2022 12:25 PM EDT ----- Message from Shannon Butt MA sent at 10/20/2022 11:21 AM EDT ----- Patient was given the number to schedule with neuro patient would like the MRI of cervical spine. documented in this [facility]04-24-2023 Telephone encounter Note* Telephone Encounter - Kacey Means - 10/20/2022 12:25 PM EDT ----- Message from Shannon uBtt MA sent at 10/20/2022 11:21 AM EDT ----- Patient was given the number to schedule with neuro patient would like the MRI of cervical spine. [facility] HospitalKmewps07-48-2509 Telephone encounter Note* Telephone Encounter - Briseyda Dubois - 10/09/2022 10:05 AM EDT Orders pended for doctor's signature [place] [id number] Miscellaneous Notes* Telephone Encounter - Briseyda Dubois - 10/09/2022 10:05 AM EDT Orders pended for doctor's signature * Telephone Encounter - Briseydaasia Dubois - 10/09/2022 10:03 AM EDT ----- Message from Wilfredo Fischer DO sent [...] exams if she agrees. documented in this encounterSSelect Medical Specialty Hospital - [id number] Telephone encounter Note* Telephone Encounter - Briseyda Dubois - 10/09/2022 10:03 AM EDT ----- Message from Wilfredo Fischer DO sent [...] her. Schedule those exams if she agrees. [facility] HospitalCqfang48-59-8829 Telephone encounter Note* Telephone Encounter - Briseyda Dubois - 08/05/2022 12:29 PM EST Referral pended for dx and doctor's signature [facility] HospitalYoxxqo11-51-7642 Miscellaneous Notes* Telephone Encounter - Briseyda Dubois - 08/05/2022 12:29 PM EST Referral pended for dx and doctor's signature * Telephone Encounter - Wilfredo Fischer DO - 08/03/2022 3:38 PM EST Need list of neurologist this patient may consult documented in this encounterSSelect Medical Specialty Hospital - [id number] Telephone encounter Note* Telephone Encounter - Wilfredo Viera DO Amado - 08/03/2022 3:38 PM EST Need list of neurologist this patient may consult [facility] HospitalUhwvux37-40-6694 History of Present illness Narrative* Wilfredo Viera DO Amado - 08/01/2022 8:40 AM EST Images from the original note were not included. [place] [address] [address] [facility] [id number] Visit type: Established Patient Reason for Visit: discuss getting MRI Assessment / Plan: Cheryl was seen today for discuss getting mri. Diagnoses and all orders for this visit: Paresthesia of upper extremity (Primary) - Hemoglobin A1c; Future - Comprehensive metabolic panel; Future - XR cervical spine complete 4 to 5 views; Future - Hemoglobin A1c - Comprehensive metabolic panel Subjective: Patient ID: Cheryl Wood is a 32 y.o. female. 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 Presented with many months of an intermittent hypersensitivity of the lateral left buttock and thigh. Not accompanied by intense low back pain but intermittent. No sense of weakness of the Foot or toes. No increase with Valsalva's. Somewhat worsens with sitting. No bowel or bladder changes. Review of Systems also with intermittent tingling of the left upper extremity. History of right shoulder surgery and occasional on that side as well. She denies central neck pain. No increase of her symptoms with Valsalva maneuvers. No substantial weakness noted in any extremity. Is been no recent falls. Of note has had MRI of her head with her history of pseudotumor cerebri. Those symptoms have resolved. X-rays of her back were normal as well as her hips. Laboratory exams were noncontributory. Denies diplopia or scotomas. No unilateral facial symptoms. Allergies Allergen Reactions Minocycline Hives Hives swelling Nickel Current Outpatient Medications on File Prior to Visit Medication Sig Dispense Refill albuterol 108 (90 Base) MCG/ACT inhaler Inhale 2 puffs every 6 hours as needed. Dulera 200-5 MCG/ACT inhaler INHALE 2 PUFFS INTO THE LUNGS IN THE MORNING AND 2 PUFFS IN THE EVENING. Probiotic Product (PROBIOTIC-10 ULTIMATE PO) Take by mouth. spironolactone (Aldactone) 100 MG tablet Take 1 tablet (100 mg) by mouth in the morning and 1 tablet (100 mg) before bedtime. 60 tablet 5 No current facility-administered medications on file prior to visit. Patient Active Problem List Diagnosis RhD negative Pseudotumor cerebri Mild intermittent asthma without complication Laryngotracheitis, chronic Labile hypertension Cough Acne Family history of diabetes mellitus in father Social History Tobacco Use Smoking status: Some Days Packs/day: 0.50 Types: Cigarettes Smokeless tobacco: Never Substance Use Topics Alcohol use: Yes Alcohol/week: 3.0 standard drinks Past Surgical History: Procedure Laterality Date SECTION (HISTORICAL) SECTION (HISTORICAL) DENTAL SURGERY SHOULDER ARTHROSCOPY W/ LABRAL REPAIR Right 05/2021 Dr. Brown Family History Problem Relation Name Age of Onset No Known Problems Mother Gael More ([employer]ER at [employer] [employer]) Heart disease Father Sae COPD Father Sae [...] Grandmother Prostate cancer Paternal Grandfather Objective: BP 119/82 Pulse 87 Temp 36.2 C (97.1 F) (Temporal) Ht 5' 9 (1.753 m) Wt 298 lb (135 kg) LMP 07/18/2022 (Exact Date) SpO2 97% BMI 44.01 kg/m Physical Exam her exam is unremarkable neurologically. Negative Spurling's. Pupils equal. Extraocular muscles are intact. Cranial nerves are normal. There is no motor or sensory loss of any extremity. Reflexes are physiologic in all extremities. No Judith's or Babinski. No clonus. No fasciculations. Negative straight leg raising bilaterally. Fair range of motion hips without difficulty. Pulse color and temperature of the extremities are normal. Her gait is normal. documented in this [facility]01-10-2023 Telephone encounter Note* Telephone Encounter - Leah Ortiz Leslie - 07/08/2022 2:23 PM EST Name of caller: Cheryl Contact phone number: [phone] Relationship to Patient: patient Provider: Dr. Fischer Practice: [facility] Chief Complaint/Reason for Call: Patient calling in stating that she missed a call from the office.No messages seen in chart. Please Advise. Best time of day caller can be reached: ANY Patient advised that office/PCP has 24-48 business hours to return their call: Yes [id number] Miscellaneous Notes* Telephone Encounter - Leah Leslie - 07/08/2022 2:23 PM EST Name of caller: Cheryl Contact phone number: [phone] Relationship to Patient: patient Provider: Dr. Fischer Practice: [facility] Chief Complaint/Reason for Call: Patient calling in stating that she missed a call from the office.No messages seen in chart. Please Advise. Best time of day caller can be reached: ANY Patient advised that office/PCP has 24-48 business hours to return their call: Yes documented in this [facility]10-08-2021 NoteHNO ID: [id number] Author: Ayan Sadler, DO Service: ? Author [...] with all of its relevant components. Ayan Sadler DO April 05, 2021 8:56 [facility] Evaluation note* Diagnosis Instability of right shoulder joint Other joint derangement, not elsewhere classified, shoulder region documented in this encounter [facility] Work Phone: Evaluation note* Diagnosis Mouth pain- Primary Other and unspecified diseases of the oral soft tissues Throat pain documented in this encounter [facility] Work Phone: Evaluation note* Diagnosis Cough documented in this encounter [facility] Work Phone: Evaluation note* Diagnosis Paresthesia of upper extremity [facility] Diagnosis Lumbar radiculopathy, chronic [facility] Diagnosis Lumbar radiculopathy, chronic [facility]* Diagnosis Paresthesia of upper extremity Abnormal NCS (nerve conduction studies) [facility]* Diagnosis Anxiety- Primary Anxiety state, unspecified [facility]* Diagnosis Essential hypertension- Primary Unspecified essential hypertension Idiopathic neuropathy Other specified idiopathic peripheral neuropathy [facility]* Diagnosis Onset Date Resolution Status Benign intracranial hypertension acute Fibromyalgia acute Headache acute Hypersomnia acute Polyneuropathy [facility] Work Phone: Evaluation note* Diagnosis Onset Date Resolution Status Hypersomnia acute Polyneuropathy acute Fatigue chronic Encounter for procedure none active Cellulitis and abscess of foot acute Fatigue chronic Fatigue chronic Benign intracranial hypertension acute Fibromyalgia acute Headache acute Hypersomnia acute [facility] Work Phone: Evaluation note* Diagnosis Acute low back pain with sciatica, sciatica laterality unspecified, unspecified back pain laterality- Primary [facility] Diagnosis Lumbar pain- Primary Lumbago Lumbar radiculopathy Thoracic or lumbosacral neuritis or radiculitis, unspecified Lumbar spondylosis Lumbosacral spondylosis without myelopathy Degeneration of intervertebral disc of lumbar region with discogenic back pain and lower extremity pain Left hip pain Pain in joint, pelvic region and thigh documented in this encounter [facility]* Diagnosis Tear of left acetabular labrum, initial encounter- Primary Left hip pain Pain in joint, pelvic region and thigh Tendinopathy of gluteus medius documented in this encounter [facility]* Diagnosis Left hip pain Pain in joint, pelvic region and thigh documented in this encounter [facility]* Diagnosis Tactile hypesthesia- Primary Disturbance of skin sensation Lumbar radiculopathy Thoracic or lumbosacral neuritis or radiculitis, unspecified documented in this encounter [facility]* Diagnosis Cough, unspecified- Primary documented in this encounter [facility]* Diagnosis Cough, unspecified- Primary documented in this encounter [facility]* Diagnosis Tactile hypesthesia Disturbance of skin sensation Lumbar radiculopathy Thoracic or lumbosacral neuritis or radiculitis, unspecified Bilateral hip pain Pain in joint, pelvic region and thigh documented in this encounter [facility]* Diagnosis Lumbar radiculopathy, chronic- Primary documented in this encounter [facility]* Diagnosis Lumbar radiculopathy, chronic- Primary Paresthesia of upper extremity Class 3 severe obesity due to excess calories with serious comorbidity and body mass index (BMI) of 40.0 to 44.9 in adult (HCC) documented in this encounter [facility] HealthEvaluation noteNo assessment information availableWSelect Medical [facility] Work Phone: Hospital Discharge instructions* Attachments The following attachments cannot be sent through Care Everywhere. * Sore Throat (Japanese) documented in this [facility] Work Phone: Hospital Discharge instructions* Attachments The following attachments cannot be sent through Care Everywhere. * Sciatica Discharge Instructions (Japanese) * Sciatica Exercises (Japanese) [facility] Additional Instructions Follow schedule that you are given for the rabies vaccine series. Take antibiotics as prescribed if you develop surrounding redness or purulent drainage while on antibiotics you need to return to the emergency department. Follow-up your primary care physician or if you not having you referred to 1. Return with any other concerns. Your tetanus shot was updated today.[facility] Work Phone: Reason for referral (narrative)* Consultation (Routine) - Pending Review Specialty Diagnoses / Procedures Referred By Contac t Referred To Contact Orthopedic Surgery Diagnoses Acute low back pain with sciatica, sciatica laterality unspecified, unspecified back pain laterality Gissel Hernandez PA-C [address] [place] [address] [facility] [address] [place] [address] Referral ID Status Reason Start Date Expiration Date Visits Requested Visits Authorized [id number] Pending Review Specialty Services Required 04/16/2025 1 1 [facility] [employer] for referral (narrative)* Consultation (Routine) - Pending Review Specialty Diagnoses / Procedures Referred By Contac t Referred To Contact Neurology Diagnoses Lumbar radiculopathy, chronic Procedures [place] OFFICE/OUTPATIENT [facility] 60-74 MINUTES Wilfredo Fischer DO [address] [place] [address] Herberth Steele MD [address] [place] [address] Referral ID Status Reason Start Date Expiration Date Visits Requested Visits Authorized [id number] Pending Review Specialty Services Required 08/05/2022 08/05/2023 1 1 [facility] for referral (narrative)No reason for referral information availableWSelect [facility] Work Phone: Summary Purpose Family History No Family History Records FoundNo Family History Records FoundNo Family History Records FoundNo Family History Records FoundNo Family History Records FoundNo Family History Records FoundNo Family History Records Found Advance Directives No Advanced Directives Records FoundDocuments on File Type Date Recorded Patient Pharm Spec Expl anation ACP-Advance Directive ACP-Power of Cryptographic Vulnerability Analyst Latest Code Status on File Code Status Date Activated Date Inactivated Comments Full Code 12/30/2017 11:01 PM 01/01/2018 2:47 PM Full Code 12/04/2017 11:48 PM 12/30/2017 11:01 PM Documents on File Type Date Recorded Patient Pharm Spec Expl anation ACP-Advance Directive ACP-Power of Cryptographic Vulnerability Analyst Latest Code Status on File Code Status Date Activated Date Inactivated Comments Full Code 12/30/2017 11:01 PM 01/01/2018 2:47 PM Full Code 12/04/2017 11:48 PM 12/30/2017 11:01 PM Latest Code Status on File Code Status Date Activated Date Inactivated Comments Full Code 06/03/2021 7:05 AM 06/03/2021 3:56 PM Full Code 12/30/2017 11:01 PM 01/01/2018 2:47 PM Advance Directive Response Recorded Date/ Time Living Will No April 12 6:40pm Power of Cryptographic Vulnerability Analyst No April 12, 2021 6:40pm Advance Directive Response Recorded Date/ Time Living Will No June 23 023 3:04pm Power of Cryptographic Vulnerability Analyst No June 23, 2023 3:04pm Advance Directive Response Recorded Date/ Time Living Will No September 21, 2024 7:12pm Do you have a Healthcare Power of Cryptographic Vulnerability Analyst? No September 21, 2024 7:12pm Reason for Referral Status Reason Specialty Diagnoses / Procedures Referred By Contact Referred To Contact Open Specialty Services Required Orthopedic Surgery Diagnoses Acute pain of right shoulder Niurka Rivas MD [address] [place] [address] [facility] [address] [address] [place] [address] Scheduling Instructions [facility] - [place] [place] [address] Status Reason Specialty Diagnoses / Procedures Referre d By Contact Referred To Contact Closed Radiology Diagnoses Instability of right shoulder joint Procedures XR SHOULDER ARTHROGRAM RIGHT S&I Pinky Romero MD 1 [facility] [address] [place] [address] Status Reason Specialty Diagnoses / Procedures Referred By Contact Referred To Contact Open Specialty Services Required Otolaryngology Diagnoses Mouth pain Throat pain [place], [employer]MAN - [employer]NU[employer]ENDER [address] [place] [address] [facility] [address] [place] [address] Scheduling Instructions [facility] [address] [place], [place] [address] F: [phone] Specialty Diagnoses / Procedures Referred By Contac t Referred To Contact Diagnoses Paresthesia of upper extremity Procedures NERVE CONDUCTION TEST WITH EMG Wilfredo Fischer, DO [address] [place] [address] Referral ID Status Reason Start Date Expiration Date V isits Requested Visits Authorized [id number] Incomplete 10/09/2022 04/07/2023 1 1 Specialty Diagnoses / Procedures Referred By Contac t Referred To Contact Radiology Diagnoses Lumbar radiculopathy, chronic Procedures MR cervical spine wo contrast Wilfredo Fischer, DO [address] [place] [address] Referral ID Status Reason Start Date Expiration Date V isits Requested Visits Authorized [id number] Pending Review 10/20/2022 04/18/2023 1 1 Specialty Diagnoses / Procedures Referred By Contac t Referred To Contact Radiology Diagnoses Paresthesia of upper extremity Abnormal NCS (nerve conduction studies) Procedures MR cervical spine wo contrast Wilfredo Fischer, DO [address] [place] [address] Referral ID Status Reason Start Date Expiration Date V isits Requested Visits Authorized [id number] Authorized 11/18/2022 05/17/2023 1 1 Specialty Diagnoses / Procedures Referred By Contac t Referred To Contact Diagnoses Cough, unspecified Procedures Complete PFT pre and post bronchodilator Wilfredo Fischer, DO [address] [place] [address] Referral ID Status Reason Start Date Expiration Date V isits Requested Visits Authorized [id number] Incomplete 04/17/2022 10/14/2022 1 1 Discharge Instructions * Instructions* Niurka [...] sent through Care Everywhere. * Shoulder Sprain (Japanese) documented in this encounter Assessments Diagnosis Acute pain of right shoulder- Primary Chief Complaint and Reason for Visit Chief Complaint NUMBNESS IN THROAT/E XTREMITIES EORDER G47.10 Hypersomnia, unspecified Reason for Visit Benign intracranial hypertension Fibromyalgia Headache Hypersomnia Polyneuropathy Chief Complaint G47.10 Hypersomnia, unspecified Skin biopsy G93.2 R51.9 puncture biopsy, possible infection B12 inject B12 inject 4 M FU EORDER Reason for Visit Hypersomnia Polyneuropathy Fatigue Encounter for procedure Cellulitis and abscess of foot Fatigue Fatigue Benign intracranial hypertension Fibromyalgia Headache Hypersomnia Chief Complaint Admit Date bite September 21, 2024 6:3 2pm Chief Complaint Admit Date bite September 21, 2024 6:3 2pm RABIES SHOT September 24, 2024 4:1 4pm Chief Complaint Admit Date bite September 21, 2024 6:3 2pm RABIES SHOT September 24, 2024 4:1 4pm RABIES DAY 7 September 28, 2024 4:01 pm Chief Complaint Admit Date bite September 21, 2024 6:3 2pm RABIES SHOT September 24, 2024 4:1 4pm RABIES DAY 7 September 28, 2024 4:01 pm MEDS ONLY October 05, 2024 4:31 pm Additional Source Comments INFORMATION SOURCE (unrecogn ized section and content) DATE CREATED AUTHOR 12/22/2017 [facility] ([place]) DATE CREATED AUTHOR AUTHOR'S ORGANIZ ATION 02/17/2018 [facility] DATE CREATED AUTHOR AUTHOR'S ORGANIZ ATION 06/06/2021 [facility] [employer] DATE CREATED AUTHOR AUTHOR'S ORGANIZ ATION 08/05/2021 [facility] DATE CREATED AUTHOR AUTHOR'S ORGANIZ ATION 03/31/2022 [facility] [employer] DATE CREATED AUTHOR AUTHOR'S ORGANIZ ATION 05/02/2024 [facility] DATE CREATED AUTHOR AUTHOR'S ORGANIZ ATION 11/07/2024 [facility] Reason for Visit (unrecogniz ed section and content) Reason Comments Shoulder Injury Right Status Reason Specialty Diagnoses / Procedures Referre d By Contact Referred To Contact Closed Radiology Diagnoses Instability of right shoulder joint Procedures XR SHOULDER ARTHROGRAM RIGHT S&I Pinky Romero MD 1 [facility] [address] [place] [address] Reason Comments Mouth Lesions Reason Onset Date Comments Orders 10/09/2022 EMG/NCS B/L Uppe r Reason Onset Date Comments Orders 10/20/2022 MRI C Spine Reason Onset Date Comments Orders 10/20/2022 MRI C Spine Reason Onset Date Comments Med Refill 12/31/2022 Reason Onset Date Comments Referral Extension 01/01/2023 Specialty Diagnoses / Procedures Referred By Contac t Referred To Contact Radiology Diagnoses Paresthesia of upper extremity Abnormal NCS (nerve conduction studies) Procedures MR cervical spine wo contrast Wilfredo Fischer F, DO [address] [place] [address] Referral ID Status Reason Start Date Expiration Date V isits Requested Visits Authorized [id number] Authorized 11/18/2022 05/17/2023 1 1 Reason Comments Numbness In left arm all the time, and on and off in right arm since July, feet have been swelling Reason Comments Med Refill Reason Comments Back Pain 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 Pain Specialty Diagnoses / Procedures Referred By Contac t Referred To Contact Orthopedic Surgery Diagnoses Acute low back pain with sciatica, sciatica laterality unspecified, unspecified back pain laterality Gissel Hernandez, PAPaulC [address] [place] [address] Phone: tel: fax: [facility] [address] [address] Phone: tel: fax: Referral ID Status Reason Start Date Expiration Date V isits Requested Visits Authorized [id number] Closed Specialty Services Required 04/16/2024 04/16/2025 1 1 Reason Comments New Patient Hip Pain Left Specialty Diagnoses / Procedures Referred By Nasra cerna Referred To Contact Sports Medicine Diagnoses Left hip pain Procedures [place] OFFICE/OUTPATIENT NEW HIGH MDM 60 MINUTES Jason Castro APRN - KNUCKLE BENDER 1 [facility] [address] [place] [address] Phone: tel: fax: [facility] [place] [address] [place] [address] [place] [address] Phone: tel: fax: Referral ID Status Reason Start Date Expiration Date Visits Requested Visits Authorized [id number] Pending Review Specialty Services Required 04/22/2025 1 1 Reason Comments discuss getting MRI Reason Onset Date Comments Missed Call 07/08/2022 Ordered Prescriptions (unrec ognized section and content) Prescription Sig Dispensed Refills Start Date End Da te naproxen (NAPROSYN) 500 MG tablet Take 1 tablet by mouth 2 times daily (with meals) 14 tablet 0 08/09/2020 Prescription Sig Dispensed Refills Start Date End Da te omeprazole (PRILOSEC) 20 MG delayed release capsule Take 1 capsule by mouth daily 30 capsule 0 11/13/2020 Magic Mouthwash (MIRACLE MOUTHWASH) Swish and spit 5 mLs 4 times daily as needed for Irritation 1:1:1 concentration 240 mL 0 11/13/2020 Care Teams (unrecognized sec tion and content) Dough Cutter Relationship Specialty Start Date End Date Wilfredo Fischer DO [address] [place] [address] PCP - General Family Medicine 03/21/22 Dough Cutter Relationship Specialty Start Date End Date Wilfredo Fischer DO [address] [place], [place] [id number] PCP - General 03/21/22 Dough Cutter Relationship Specialty Start Date End Date Wilfredo Fischer DO [address] [place], [place] [id number] PCP - General 03/21/22 Dough Cutter Relationship Specialty Start Date End Date Wilfredo Fischer DO [address] [place], [place] [id number] PCP - General 03/21/22 Dough Cutter Relationship Specialty Start Date End Date Wilfredo Fischer DO [address] [place] [address] PCP - General 03/21/22 Dough Cutter Relationship Specialty Start Date End Date Wilfredo Fischer DO [address] [place], [place] [id number] PCP - General 03/21/22 Dough Cutter Relationship Specialty Start Date End Date Wilfredo Fischer DO [address] [place], [place] [id number] PCP - General 03/21/22 Team Status: Active Member Role Status Dates Dr. Milton Collado MD Family Provider Active Dr. Wilfredo Fischer DO Primary Care Provider Active Team Status: Inactive Member Role Status Dates Dr. Wilfredo Fischer DO Primary Care Provider, Referr ing Provider Active Dr. Herberth Steele MD Attending Provider Active Team Status: Inactive Member Role Status Dates Dr. Wilfredo Fischer DO Primary Care Provider Active Dr. Herberth Steele MD Attending Provider, Referring Provider Active Dough Cutter Relationship Specialty Start Date End Date Wilfredo Fischer DO [address] [place] [address] Rd [address] [place] [address] PCP - General 03/21/22 Dough Cutter Relationship Specialty Start Date End Date Wilfredo Fischer DO [address] [place] [address] PCP - General 03/21/22 Dough Cutter Relationship Specialty Start Date End Date Wilfredo Fischer, DO [address] [place] [address] PCP - General 03/21/22 Dough Cutter Relationship Specialty Start Date End Date Wilfredo Fischer, DO [address] [place] [address] PCP - General 03/21/22 Dough Cutter Relationship Specialty Start Date End Date Wilfredo Fischer, DO [address] [place] [address] PCP - General 03/21/22 Dough Cutter Relationship Specialty Start Date End Date Wilfredo Fischer, DO [address] [place] [address] PCP - General 03/21/22 Team Status: Active Member Role Status Dates No Primary Care Physician Primary Care Provider Active Team Status: Inactive Member Role Status Dates Dr. Abhi Cooper DO Emergency Provider Active Start: September 21, 2024 End: September 21, 2024 No Primary Care Physician Primary Care Provider Active Start: September 21, 2024 End: September 21, 2024 Team Status: Inactive Member Role Status Dates No Primary Care Physician Primary Care Provider Active Start: September 24, 2024 End: September 24, 2024 Dr. Abhi Cooper DO Emergency Provider Active Start: September 24, 2024 End: September 24, 2024 Team Status: Inactive Member Role Status Dates Dr. Abhi Cooper DO Attending Provider Active Start: September 21, 2024 End: September 21, 2024 Dr. Abhi Cooper DO Emergency Provider Active Start: September 21, 2024 End: September 21, 2024 No Primary Care Physician Primary Care Provider Active Start: September 21, 2024 End: September 21, 2024 Team Status: Inactive Member Role Status Dates No Primary Care Physician Primary Care Provider Active Start: September 24, 2024 End: September 24, 2024 Dr. Abhi Cooper DO Attending Provider Active Start: September 24, 2024 End: September 24, 2024 Team Status: Inactive Member Role Status Dates No Primary Care Physician Primary Care Provider Active Start: September 28, 2024 End: September 28, 2024 Dr. Abhi Cooper DO Emergency Provider Active Start: September 28, 2024 End: September 28, 2024 Team Status: Inactive Member Role Status Dates No Primary Care Physician Primary Care Provider Active Start: September 28, 2024 End: September 28, 2024 Dr. Abhi Cooper DO Attending Provider Active Start: September 28, 2024 End: September 28, 2024 Team Status: Inactive Member Role Status Dates No Primary Care Physician Primary Care Provider Active Start: October 05, 2024 End: October 05, 2024 Dr. Abhi Cooper DO Emergency Provider Active Start: October 05, 2024 End: October 05, 2024 Goals (unrecognized section and content) Goals may be documented in a n alternate sectionGoals may be documented in an alternate sectionGoals may be documented in an alternate sectionGoals may be documented in an alternate sectionGoals may be documented in an alternate sectionGoals may be documented in an alternate section Scheduled Active and Recently Administ ered Medications (unrecognized section and content) Medication Order 04/14/2024 04/15/2024 04/16/2024 ketorolac (Toradol) injection 60 mg (COMPLETED) 60 mg, IntraMUSCular, Once, On 04/16/24 at 1805, For 1 dose 1809 (Given - Provid er: Laura Mack RN) orphenadrine (Norflex) injection 60 mg (COMPLETED) 60 mg, IntraMUSCular, Once, On 04/16/24 at 1805, For 1 dose 1809 (Given - Provid er: Laura Mack RN) FOR RECORDS PERTAINING TO PATIENTS WHO ARE [...] BE BASED ON THE PRIMARY CLINICAL RECORDS. [employer] [facility]. provides no warranty or guarantee of the accuracy or completeness of information in this document.
--- NOTE | 2025-03-04 17:40 | ED.VIS.FEGU ---
HPI HPI - Female History of Present Illness Chief Complaint: Narrative Narrative: Chief complaint and HPI: 34-year-old female who is G3, P2 and 8.5 weeks presents for RhoGAM evaluation. Patient states her previous pregnancies were . Last she followed with maternal- medicine given she had placenta previa with abruption and premature delivery. She states she has yet to follow-up with an [facility]. States she called on Thursday to be established with [place]. Patient states that she has had a ultrasound at the care center which showed a subchorionic hematoma. She states on she had intercourse in which she had some light vaginal bleeding which has since resolved. She followed up with the care center who told her it was likely secondary to the subchorionic hematoma and to be established with an MACHINE ST[facility]. Patient states she was thinking about it today and realize she has Rh- and presented for possible RhoGAM injection. She denies any fever, chills, shortness of breath, chest pain abdominal pain, nausea, vomiting. Denies any vaginal bleeding currently. Denies any pelvic cramping. Denies any dysuria or UTI symptoms. Review of systems: See HPI Medications: As listed on the chart Allergies: As listed on the chart PFSH: Per chart Vital signs: As listed on the chart. Reviewed. Physical exam: Gen: A&O x3, NAD Head: Normocephalic, atraumatic Eyes: No sclera icterus, conjunctiva clear ENT: Moist mucous membranes Neck: Trachea midline, No JVD CV: RRR, no murmurs, no peripheral edema Resp: Lungs CTA BL, no w/r/c GI: Abd soft, non-distended, non-tender, no r/r/g Musc: Full ROM, no deformity Skin: Warm, dry Neuro: Alert, oriented, grossly intact, sensation intact Psych: Cooperative, appropriate mood and affect [facility] Medical History Fatigue delivery delivered Home Medications ?Medication ?Instructions ?Recorded ?Last Taken ?Type Lactobacillus acidophilus 1 1,000 mmu cells PO DAILY 02/24/23 Unknown History billion cell capsule (Probiotic Gold Acidophilus) albuterol sulfate 90 mcg/actuation 2 puff inhalation Q6H PRN 02/24/23 Unknown History aerosol inhaler flurbiprofen 100 mg tablet 100 mg PO TID PRN pain #90 tabs 02/24/23 Unknown Rx mometasone-formoterol HFA 200 2 puff inhalation BID 02/24/23 Unknown History mcg-5 mcg/actuation aerosol inhaler (Dulera) alprazolam 1 mg tablet 1 mg .Route .COMPLEX #1 TAB 02/25/23 Unknown Rx cephalexin 250 mg capsule 250 mg PO Q6H #28 caps 04/08/23 Unknown Rx acetazolamide 250 mg tablet 250 mg PO BID #60 tabs 04/19/24 Unknown Rx amoxicillin 875 mg-potassium 1 tab PO Q12H 7 days #14 tabs 09/21/24 Unknown Rx clavulanate 125 mg tablet Allergy/AdvReac Type Severity Reaction Status Date / Time minocycline AdvReac Severe Hives Verified 03/04/25 16:27 Surgical History Status post labral repair of shoulder Social History Smoking Status: Former smoker EXAM Physical Exam Const Vital Signs: 03/04/25 16:28 Temperature 97.8 F Temperature Source Temporal Pulse Rate 84 Respiratory Rate 16 Blood Pressure 139/83 H Blood Pressure Mean 101 Pulse Ox 100 Oxygen Delivery Method Room Air MDM MDM MDM Narrative Medical decision making narrative: 34-year-old female who is G3, P2 and 8.5 weeks presents for RhoGAM evaluation. Patient states her previous pregnancies were . Last she followed with maternal- medicine given she had placenta previa with abruption and premature delivery. She states she has yet to follow-up with an MACHINE ST[facility]. States she called on Thursday to be established with [place]. Patient states that she has had a ultrasound at the care center which showed a subchorionic hematoma. She states on she had intercourse in which she had some light vaginal bleeding which has since resolved. She followed up with the care center who told her it was likely secondary to the subchorionic hematoma and to be established with an MACHINE ST[facility]ER. Patient states she was thinking about it today and realize she has Rh- and presented for possible RhoGAM injection. She currently denies any symptoms such as vaginal bleeding or pelvic pain. On presentation, patient no acute distress. Vital stable other than mild hypertension. At this point in time I do not think any laboratory workup or imaging is needed at this time given patient is asymptomatic. Per the current guidelines from the [employer] and [employer] there is no longer recommended routine Rh testing and RhoGAM administration for our negative patients at less than 12 weeks gestation following an or loss. Our guidelines here at [facility] is 14 weeks. However given patient is Rh- and has had complications with previous pregnancies, I will reach out with [place] [facility]. I spoke with the nurse practitioner that is on-call. She will reach out to Dr. Kevin Blackwell. Nurse practitioner reconsulted me after discussing with Dr. Kevin Blackwell. No RhoGAM injection needed at this time given that patient is less than 14 weeks. She is to follow-up in their office. Patient updated of all the results and the plan. She confirmed understanding. Return precautions explained. Patient stable to discharge home. Impression: 1. First trimester 2. Vaginal bleeding, resolved 3. History of subchorionic hemorrhage 3. Rh- blood type Discharge Plan Triage Chief Complaint: ED Provider: Tremayne Brice Dx/Rx/DC Orders Prescriptions: No Action albuterol sulfate 90 mcg/actuation HFA aerosol inhaler 2 puff inhalation Q6H PRN Dulera 200-5 mcg/actuation HFA aerosol inhaler 2 puff inhalation BID Probiotic Gold Acidophilus 1 billion cell capsule 1,000 mmu cells PO DAILY flurbiprofen 100 mg tablet 100 mg PO TID PRN (Reason: pain) Qty: 90 4RF alprazolam 1 mg tablet 1 mg .ROUTE .COMPLEX Qty: 1 0RF Rx Instructions: Take 1 tablet x1 orally 30 minutes prior to MRI. cephalexin 250 mg capsule 250 mg PO Q6H Qty: 28 0RF amoxicillin-pot clavulanate 875-125 mg tablet 1 tab PO Q12H 7 Days Qty: 14 0RF acetazolamide 250 mg tablet 250 mg PO BID Qty: 60 1RF Primary Care Provider: Care Physician,No Primary Referrals: Care Physician,No Primary [Primary Care Provider] - Print Language: Mohawk
[2025-03-04 18:19] VITALS: BP 153/93; PULSE 99; RESP 18; TEMP 37.1; O2SAT 100
== END 2025-03-04 18:22 | disposition home or self-care (01) ==
PROVIDERS: Emergency Provider Surgery; Visit Provider Surgery
DX: O26.891 Other specified pregnancy related conditions, first trimester (principal); Z67.91 Unspecified blood type, Rh negative; O20.9 Hemorrhage in early pregnancy, unspecified; O34.219 Maternal care for unspecified type scar from previous cesarean delivery; O09.521 Supervision of elderly multigravida, first trimester; Z87.59 Personal history of other complications of pregnancy, childbirth and the puerperium; Z87.891 Personal history of nicotine dependence; Z3A.08 8 weeks gestation of pregnancy
CPT/HCPCS: 99282

== ENCOUNTER → 2025-03-07 | Outpatient (CLI) | payer MEDICAID, SELFPAY ==
[2025-03-07 17:58] LABS: Creatinine, Urine (random) 250.00 mg/dL (28.00-217.00); Protein, Urine (Random) 10.0 mg/dL (0.0-12.0); Protein:Creat Ratio 40 mg/g CRE (0-200)
--- OUTSIDE RECORDS SUMMARY | 2025-03-07 22:51 | XMS RPT_ITS | CCD ---
Author Organization [facility] CliniSytn Care Team Providers Care Kiln Charger Name Role Phone TRICE KAPOOR Unavailable Unavailable LARISSAMILTON POWELL Unavailable Unavailable GENA SMART Unavailable UnavaLUIS FERNANDO Sharma Unavailable Unavailable NO PRIMARY CARE, MD Unavailable Unavailable LUIS FERNANDO WESTBROOK Unavailable Unavailable CJ, MIGNON T Unavailable Unavailable NO PRIMARY CARE, [...] NO PRIMARY CARE, MD Unavailable Unavailable MING ASLINAS Unavailable Unavailable NIURKA BAEZA Unavailable Unavailable NO [...] Attending Unavailable Larissa, Milton Primary Care Unavailable Petrilla DO, Wilfredo F Primary Care Provider [phone] Amado DO, Wilfredo F Primary Care Provider Dr. Wilfredo Fischer Primary Care Provider [phone] Dr. Wilfredo Fischer Referring Provider [phone] Herberth Steele Attending Provider Petrijameea DO, Wilfredo F Primary Care Provider Dr. Wilfredo Fischer Primary Care Provider [phone] Dr. Herberth Steele Attending Provider Dr. Herberth Steele Referring Provider Dr. Wilfredo Fischer Referring Provider [phone] Unavailable Primary Care Provider Unavailhouston e SHAY IZQUIERDO Attending Unavailable GEORGINA, JASON Referring Unavailable SKARTEM, JASON Referring Unavailable SKARTEM, JASON Attending Unavailable GISSEL HERNANDEZ Referring Unavailable FELECIA, SHAY Attending Unavailable FELECIA, SHAY Referring Unavailable HOLDENA, WILFREDO Primary Care Unavailable Dr. Abhi Cooper DO Emergency Provider [phone] Care Physician, No Primary Primary Care Provider Unavailable Dr. Abhi Cooper DO Attending Provider Care Physician, No Primary Primary Care Provider Unavailable Dr. Tremayne Brice DO Emergency Provider Care Physician, No Primary Primary Care Unava ilable Abhi Cooper Attending Unavailable Care Physician, No Primary Primary Care Unava ilable Abhi Cooper Attending Unavailable Care Physician, No Primary Primary Care Unava ilable Abhi Cooper Attending Unavailable Tremayne Brice Attending Unavailabl e Care Physician, No Primary Primary Care Unava ilable Care Physician, No Primary Primary Care Unava ilable Abhi Cooper Attending [facility] Care Physician, No Primary Referring Provider Un available Sweta FERRELL, Dr. Moyer Attending Provider [phone] Allergies Allergy Classification Reported Allergen(s) Allergy Type Date of Onset Reaction(s) Facility (20 sources) [facility] nickel sulfate Drug Allergy 05-31-2021 [facility] Work Phone: (8 sources) Minocycline Drug Allergy 02-24-2023 [facility] Comment on above: swellilng (1 source) Minocycline Drug Allergy 03-04-2025 [facility] Repository Medications Current Medications Medication Drug Class(es) Dates Sig (Normalized) Sig (Original) adapalene 0.003 mg/mg topical gel (9 sources) Retinoid Start: 01-26-2023 adapalene (Differin) 0.3 % gel 01/26/2023 Active [id number] 200 actuat albuterol 0.09 mg/actuat metered dose [...] for Wheezing 18 g 3 03/21/2022 Active ascorbic acid 500 mg oral tablet (11 sources) Vitamin C take 1 tablet by mouth three times daily vitamin C (ASCORBIC ACID) 500 MG tablet Take 500 mg by mouth 3 times daily 0 Active cholecalciferol 0.05 mg oral capsule (11 sources) Vitamin D take 1 capsule by mouth once daily Cholecalciferol (VITAMIN D) 2000 units CAPS capsule Take 1 capsule by mouth daily 0 Active Choline (1 source) Start: take 1 capsule by mouth once daily Choline capsule Active 110 mg PO daily March 07, 2025 12:00am diclofenac sodium 75 mg delayed release oral tablet (7 sources) Nonsteroidal Anti-inflammatory Drug Start: End: take 1 tablet by mouth twice daily [...] or split. 20 tablet 04/16/2024 04/22/2024 Discontinued 60 actuat formoterol fumarate 0.005 mg/actuat / [...] evening. 1 each 5 03/21/2022 04/20/2022 Active Magic Mouthwash (MIRACLE MOUTHWASH) (1 source) Start: [...] l (Dulera) 200-5 mcg/actuation HFA aerosol inhaler (8 sources) Start: 02-24-2023 Mometasone-For motero l (Dulera) 200-5 mcg/actuation HFA aerosol inhaler Active [...] TWICE A DAY February 24, 2023 12:00am Multivit 50-Jhvn-Mkebxz 1-Dha (Pnv-Dha) 27 mg iron-1 mg -300 mg capsule (1 source) Start: 03-07-2025 Multivit 55-Sjii-Lvbtea 1-Dha (Pnv-Dha) 27 mg iron-1 mg -300 mg capsule Active NMA PO March 07, 2025 12:00am naproxen 500 mg oral tablet (6 [...] Product (PROBIOTIC-10 ULTIMATE PO) (20 sources) Probiotic Produc t (PROBIOTIC-10 ULTIMATE PO) Take by mouth. Active [...] Sig (Original) acetaZOLAMIDE 250 mg oral tablet (20 sources) Carbonic Anhydrase Inhibitor Start: 04-02-2023 End: 03-07-2025 take 1 tablet by mouth twice daily Acetazolamide 250 mg tablet Discontinued 250 mg PO TWICE A DAY 60 1 April 19, 2024 4:24pm March 07, 2025 10:03am ALPRAZolam 1 mg oral tablet (8 sources) Benzodiazepine Start: 02-25-2023 End: 03-07-2025 Alprazolam 1 mg tablet Discontinued 1 mg .ROUTE .COMPLEX 1 0 February 25, 2023 12:00am March 07, 2025 10:04am Claustrophobia Claustrophobia Take 1 tablet x1 orally 30 minutes prior to MRI. amoxicillin 875 mg / clavulanate 125 mg oral tablet (6 sources) Penicillin-class Antibacterial Start: 09-21-2024 End: 03-07-2025 Amoxicillin-Pot Clavulanate 875-125 mg tablet Discontinued 1 {tbl} PO Q12H 14 7 0 September 21, 2024 12:00am March 07, 2025 10:04am cephalexin 250 mg oral capsule (7 sources) Cephalosporin Antibacterial Start: 04-08-2023 End: 03-07-2025 take 1 capsule by mouth every six hours Cephalexin 250 mg capsule Discontinued 250 mg PO EVERY 6 HOURS 28 0 April 08, 2023 12:00am March 07, 2025 10:04am Collagen (1 source) End: 08-09-2020 COLLAGEN PO [...] completed) docusate sodium 100 mg oral capsule (14 sources) Start: 06-03-2021 End: 07-10-2021 docusate sodium [...] 12, 2015 1:00am June 16, 2015 7:11am flurbiprofen 100 mg oral tablet (8 sources) Nonsteroidal Anti-inflammatory Drug Start: 02-24-2023 End: 03-07-2025 take 1 tablet by mouth three times daily as needed for pain Flurbiprofen 100 mg tablet Discontinued 100 mg PO THREE TIMES A DAY as needed for pain 90 4 February 24, 2023 12:00am March 07, 2025 10:04am gadobutrol (GADAVIST) injection 2 mL (1 source) [...] On 04/16/24 at 1805, For 1 dose lactobacillus acidophilus [id number] unt oral capsule (8 sources) Start: 02-24-2023 End: 03-07-2025 take 1 capsule by mouth once daily Lactobacillus Acidophilus (Probiotic Gold Acidophilus) 1 billion cell capsule Discontinued 1000 NMA PO DAILY February 24, 2023 12:00am March 07, 2025 10:04am LORazepam 0.5 mg oral tablet (2 sources) [...] Mecobalamin (Vitamin B12) 10,000 mcg recon soln (6 sources) Start: 03-18-2023 End: 03-18-2023 Mecobalamin (Vitamin B12) 10,000 mcg recon soln Discontinued 1000 ug IM .30 DAYS 1 March 18, 2023 12:00am March 18, 2023 12:23pm FATIGUE Start: 03-18-2023 End: 03-18-2023 Mecobalamin (Vitamin B12) 10 ,000 mcg recon soln Discontinued 1000 ug IM .30 DAYS March 18, 2023 12:00am March 18, 2023 12:23pm minocycline 100 mg oral capsule (8 sources) Tetracycline-class Drug Start: 04-11-2021 End: 02-24-2023 [...] 1 dose predniSONE 20 mg oral tablet (8 sources) Start: 04-12-2021 End: 02-24-2023 take 1 tablet by mouth twice daily Prednisone 20 mg tablet Discontinued 20 mg PO TWICE A DAY 6 0 April 12, 2021 12:00am February 24, 2023 9:24am Vit,Camacho 87-Cysl-Kqafy (Prenatabs Fa) 1 TABLET tablet (2 sources) Start: 05-12-2015 End: 06-16-2015 take 1 tablet by mouth once daily Vit,Camacho 52-Ywfd-Qdyng (Prenatabs Fa) 1 TABLET tablet Discontinued 1 {tbl} PO DAILY May 12, 2015 1:00am June 16, 2015 7:11am Vit,Dwbk08-Zkuc-Lp lic (Prenatabs Fa) 1 TABLET tablet (6 sources) Start: 05-12-2015 End: 06-16-2015 take 1 tablet by mouth once daily Vit,Hkvx94-Aukd-H olic (Prenatabs Fa) 1 TABLET tablet Discontinued 1 {tbl} PO DAILY May 12, 2015 1:00am June 16, 2015 7:11am Start: 05-12-2015 End: 06-16-2015 take 1 tablet by mouth once daily Vit,Jrrn64-Xjmf-Awbjp (Prenatab s Fa) 1 TABLET tablet Discontinued 1 TABLET PO DAILY May 12, 2015 12:00am June 16, 2015 6:11am Start: 05-12-2015 End: 06-16-2015 take 1 tablet by mouth once daily Vit,Rzmi74-Gmiz-Wxmwb (Prenatab s Fa) 1 TABLET tablet Discontinued 1 TABLET PO DAILY May 12, 2015 1:00am June 16, 2015 7:11am spironolactone 100 mg oral tablet (20 sources) Aldosterone Antagonist Start: 04-11-2021 End: 04-02-2023 take 1 tablet by mouth once daily Spironolactone 100 mg tablet Discontinued 100 mg PO DAILY April 11, 2021 12:00am April 02, 2023 4:11pm take [address] [facility] once daily, then take 2 tablets by [...] allergy status] Onset: 06-03-2021 Episodic Anxiety disorders (11 sources) Anxiety; Translations: [Anxiety disorder, unspecified] 01-15-2023 Chronic Asthma (20 sources) Mild intermittent asthma; Translations: [Mild intermittent asthma, uncomplicated] Onset: 06-29-2007 03-21-2022 Chronic Blindness and vision defects (8 sources) Blurring of visual image; Translations: [Other visual disturbances] 02-25-2023 Episodic Conditions associated with dizziness or vertigo (12 sources) Vertiginous syndrome; Translations: [Unspecified disorder of vestibular function, unspecified ear] 08-12-2023 Episodic Diseases of mouth; excluding dental (1 source) Painful mouth; Translations: [Other lesions of oral mucosa] Episodic E Codes: Natural/environment (6 sources) Cat bite - wound; Translations: [Bitten by cat, initial encounter] 09-21-2024 Episodic Essential hypertension (10 sources) Essential hypertension; Translations: [Essential (primary) hypertension] Onset: 06-29-2021 02-06-2023 Chronic Headache; including migraine (10 sources) Headache; Translations: [Headache] 02-25-2023 Episodic Hemorrhage during ; abruptio placenta; placenta previa (14 sources) Placenta previa; Translations: [Complete placenta previa NOS or without hemorrhage, second trimester] Onset: 12-14-2017 Resolved: 01-01-2018 01-01-2018 Episodic Joint disorders and dislocations; trauma-related (1 source) Acetabular labrum tear 04-29-2024 Chronic Malaise and fatigue (10 sources) Fatigue; Translations: [Other fatigue] 03-18-2023 Episodic Other circulatory disease (20 sources) Labile systemic arterial hypertension; Translations: [Other specified symptoms and signs involving the circulatory and respiratory systems] Onset: 03-21-2022 Resolved: 02-06-2023 03-21-2022 Episodic Other complications of (10 sources) Maternal obesity complicating , childbirth and the puerperium, antepartum; Translations: [Obesity complicating , unspecified trimester] Onset: 12-30-2017 Resolved: 01-01-2018 01-01-2018 Chronic Comment on above: HgbA1c Other complications of (14 sources) High risk ; Translations: [Supervision of other high risk pregnancies, unspecified trimester] Onset: 11-09-2017 Resolved: 01-01-2018 01-01-2018 Episodic Comment on above: , LEIDY 10/05/25, PC Nadine Argueta( custody of 13yo nephew) BF Titi Other complications of (20 sources) RhD negative; Translations: [Other specified related conditions, unspecified trimester] Onset: 12-30-2017 Resolved: 01-01-2018 01-01-2018 Episodic Comment on above: rhogam @ 28 wks Other complications of (2 sources) First trimester ; Translations: [Supervision of with other poor reproductive or obstetric history, first trimester] 03-07-2025 Episodic Other complications of (2 sources) Advanced maternal age ; Translations: [Elderly multigravida, unspecified as to episode of care or not applicable] 03-07-2025 Episodic Comment on above: nipt planned Other complications of (2 sources) H/O: premature delivery; Translations: [Supervision of other high risk pregnancies, unspecified trimester] 03-07-2025 Episodic Comment on above: delivered 27w4d last , SROM 19 wks, month in [facility] before cord prolapse/emergency CS Other connective tissue disease (8 sources) Fibromyalgia; Translations: [Fibromyalgia] 02-25-2023 Episodic Other [...] [Benign intracranial hypertension] Onset: 06-29-2017 03-21-2022 Chronic Comment on above: acetazolamide in the past. mfm consult. been over a year since she saw a neurologist Other nervous system disorders (10 sources) Neuropathy; Translations: [Hereditary and idiopathic neuropathy, unspecified] Onset: 02-06-2023 02-06-2023 Chronic Other nervous system disorders (8 sources) Polyneuropathy; Translations: [Polyneuropathy, unspecified] 02-25-2023 Chronic [...] Chronic Other nutritional; endocrine; and metabolic disorders (7 sources) Obesity; Translations: [Obesity, unspecified] 04-06-2023 Chronic Other nutritional; endocrine; and metabolic disorders (1 source) Severe obesity; Translations: [Morbid (severe) obesity due to excess calories] Chronic Other and delivery including normal (2 sources) ; Translations: [Encounter for supervision of normal , unspecified, unspecified trimester] 03-07-2025 Episodic Comment on above: elects NIPT with gen rico-carrier undecided Other screening for suspected conditions (not mental disorders or infectious disease) (2 sources) Abnormal nerve conduction; Translations: [Abnormal response to nerve stimulation, unspecified] 01-01-2023 Episodic Other skin disorders (2 sources) Hidradenitis suppurativa; Translations: [Hidradenitis suppurativa] 03-07-2025 Episodic Other upper respiratory disease (20 sources) Chronic laryngotracheitis; Translations: [Chronic laryngotracheitis] Onset: 03-21-2022 03-21-2022 Chronic Other upper respiratory disease (1 source) Pain in throat; Translations: [Pain in throat] Episodic Polyhydramnios and other problems of amniotic cavity (14 sources) premature rupture of membranes ; Translations: [ premature rupture of membranes, unspecified as to length of time between rupture and onset of labor, unspecified trimester] Resolved: 01-01-2018 01-01-2018 Episodic Comment on above: per care c enter Residual codes; unclassified (8 sources) Hypersomnia; Translations: [Hypersomnia, unspecified] 02-25-2023 Chronic Residual codes; unclassified (3 sources) Hypersomnia, unspecified; Translations: [Hypersomnia, unspecified] 02-24-2023 Chronic Residual codes; unclassified (7 sources) Daytime hypersomnia; Translations: [Hypersomnia, unspecified] 04-06-2023 Chronic Skin and subcutaneous tissue infections (8 sources) Cellulitis and abscess of lower limb; [...] [Palpitations] Onset: 11-16-2017 Resolved: 01-01-2018 01-01-2018 Episodic Immunizations and screening for infectious disease (1 source) Encounter for immunization; Translations: [Encounter for immunization] Onset: 11-07-2024 Episodic Open wounds of extremities (1 source) Open bite of right hand, initial encounter; Translations: [Open bite of right hand, initial encounter] Onset: 10-10-2024 Episodic Other complications of ; puerperium affecting management of mother (12 sources) delivery - delivered; Translations: [Encounter for delivery without indication] Onset: 12-30-2017 Resolved: 03-21-2022 01-01-2018 Episodic Other complications of (4 sources) [...] Translations: [Acne, unspecified] Onset: 05-02-2022 05-02-2022 Episodic Residual codes; unclassified (20 sources) Family [...] Reference Range Facility Emergency Department Summary on 03-04-2025 Emergency Department Summary [facility] Medical Records Department [address] [place] [id number] Emergency Department Summary 03/04/25 MR#: [id number] Acct: [id number] Name: CHERYL WOOD Rep #: [id number] : 1990 34 From: Tremayne Brice DO PCP: Care Physician,No Primary Status:REG ER Location: ED HPI HPI - Female History of Present Illness Chief Complaint: Narrative Narrative: Chief complaint and HPI: 34-year-old female who is G3, P2 and 8.5 weeks presents for RhoGAM evaluation. Patient states her previous pregnancies were . Last she followed with maternal- medicine given she had placenta previa with abruption and premature delivery. She states she has yet to follow-up with an SENIOR SCIENTIST. States she called on Thursday to be established with [facility]. Patient states that she has had a ultrasound at the care center which showed a subchorionic hematoma. She states on she had intercourse in which she had some light vaginal bleeding which has since resolved. She followed up with the care center who told her it was likely secondary to the subchorionic hematoma and to be established with an SENIOR SCIENTIST. Patient states she was thinking about it today and realize she has Rh- and presented for possible RhoGAM injection. She denies any fever, chills, shortness of breath, chest pain abdominal pain, nausea, vomiting. Denies any vaginal bleeding currently. Denies any pelvic cramping. Denies any dysuria or UTI symptoms. Review of systems: See HPI Medications: As listed on the chart Allergies: As listed on the chart PFSH: Per chart Vital signs: As listed on the chart. Reviewed. Physical exam: Gen: A O x3, NAD Head: Normocephalic, atraumatic Eyes: No sclera icterus, conjunctiva clear ENT: Moist mucous membranes Neck: Trachea midline, No JVD CV: RRR, no murmurs, no peripheral edema Resp: Lungs CTA BL, no w/r/c GI: Abd soft, non-distended, non-tender, no r/r/g Musc: Full ROM, no deformity Skin: Warm, dry Neuro: Alert, oriented, grossly intact, sensation intact Psych: Cooperative, appropriate mood and affect [facility] Medical History Fatigue delivery delivered [...] BID #60 tabs 04/19/24 Un known Rx amoxicillin 875 mg-potassium 1 tab PO Q12H 7 days #14 tabs 08/28 12/21 Unknown Rx clavulanate 125 mg tablet Allergy/AdvReac Type Severity Reaction Status Date / Time minocycline AdvReac Severe Hives Verified 03/04/25 16:27 Surgical History Status post labral repair of shoulder Social History Smoking Status: Former smoker EXAM Physical Exam Const Vital Signs: 03/04/25 16:28 Temperature 97.8 F Temperature Source Temporal Pulse Rate 84 Respiratory Rate 16 Blood Pressure 139/83 H Blood Pressure Mean 101 Pulse Ox 100 Oxygen Delivery Method Room Air MDM MDM MDM Narrative Medical decision making narrative: 34-year-old female who is G3, P2 and 8.5 weeks presents for RhoGAM evaluation. Patient states her previous pregnancies were . Last she followed with maternal- medicine given she had placenta previa with abruption and premature delivery. She states she has yet to follow-up with an SENIOR SCIENTIST. States she called on Thursday to be established with [facility]. Patient states that she has had a ultrasound at the care center which showed a subchorionic hematoma. She states on she had intercourse in which she had some light vaginal bleeding which has since resolved. She followed up with the care center who told her it was likely secondary to the subchorionic hematoma and to be established with an SENIOR SCIENTIST. Patient states she was thinking about it today and realize she has Rh- and presented for possible RhoGAM injection. She currently denies any symptoms such as vaginal bleeding or pelvic pain. On presentation, becky (more content not included)... Normal [facility] Emergency Department Summary on 09-21-2024 Emergency Department Summary [facility] Medical Records Department [address] [place] [address] Emergency Department Summary 09/21/24 MR#: [id number] Acct: [id number] Name: CHERYL WOOD Rep #: [id number] : 1990 34 From: Abhi Cooper DO [...] know when her last tetanus shot was. PFSH PFS Medical History Fatigue delivery delivered Home Medications [...] Patient follow commands that she was at [facility] year is 2024. Sensation grossly intact [...] stable co (more content not included)... Normal [facility] 37on 04-29-2024 37 Pick 2-4 of these [...] difficult as her core strength increases. Normal [facility] Office Visiton 04-29-2024 Follow-up visit [id number] Cheryl Wood 1990 F Date Provider Department Center 04/29/2024 [id number] IZQUIERDO [facility] None Family History Problem Relation Age of Onset No Known Problems Mother Comments: (HEEL SEAT POUNDER at [employer]) Heart disease Father COPD Father Comments: smoker [...] Paternal Grandmother Paternal Grandfather Alive Level of Service:75240 [place] OFFICE/OUTPATIENT NEW LOW MDM 30 MINUTES Reason for Visit and Comments: New Patient [542] Hip Pain [255869] - Left Normal [facility] Progress Noteon 04-29-2024 Progress Note [facility] - [place] [address] [place] [address] [place] [address] Dept: [phone] Dept Chief Complaint Patient presents with New [...] use and sitting on the ground, sitting cymraes style, getting on the bed with one [...] Assistive devices: none Prior surgery: no 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 Normal [facility] 37on 04-22-2024 37 [facility] Therapy at [address] [place] [address] Call central scheduling to schedule new patient appointment [phone] Normal [facility] Office Visiton 04-22-2024 Follow-up visit [id number] Cheryl Wood 1990 F Date Provider Department Center 04/22/2024 JASON HAYES [facility] OR None Family History Problem Relation Age of Onset No Known Problems Mother Comments: (HEEL SEAT POUNDER at [employer]) Heart disease Father COPD Father Comments: smoker [...] Paternal Grandmother Paternal Grandfather Alive Level of Service:39151 FL OFFICE/OUTPATIENT NEW MODERATE MDM 45 MINUTES Reason for Visit and Comments: Back Pain [12] - RECRUITING INTERN Lumbar Pain Normal [facility] Progress Noteon 04-22-2024 Progress Note [facility] - [place] [address] [facility] [address] [facility] [address] Dept: [phone] Dept Cheryl Wood 1990 [id number] 04/22/2024 Problem List: Lumbar pain Lumbar radiculopathy, left Lumbar spondylosis Lumbar degenerative disc disease Left hip pain (M54.50) Lumbar pain (M54.16) Lumbar radiculopathy (M47.816) Lumbar spondylosis (M51.362) Degeneration of intervertebral disc of lumbar region with discogenic back pain and lower extremity pain (M25.552) Left hip pain Chief Complaint Patient presents with Back Pain RECRUITING INTERN Lumbar Pain HPI: Cheryl is a 33 [...] week, when she went to open a [employer] basement door, and was stuck. 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 Normal [facility] XR LUMBAR SPINE 4-5 VIEWon 1 XR [...] no listhesis noted on flexion/extension radiographs. Normal [facility] ED Nursing Noteon 04-16-2024 ED Nursing Note Clarified with Gissel Bass that 60mg toradol to be given and dosage was verified Laura Mack RN 04/16/24 1810 Normal [facility] ED Nursing Note Pt c.o lower back pa in radiating down L leg, states the pain worsened when she opened a door today Normal [facility] ED Provider Noteon ED Provider Note [facility] ED eMERGENCY dEPARTMENT eNCOUnter Pt Name: Cheryl [...] retention. No saddle paresthesias. She tried some [id number]-[id number] medications with no relief of her symptoms. 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 Overall Financial Resource Strain (CARDIA) Difficulty of Paying Living Expenses: Not hard at all Food Insecurity: No Food Insecurity (03/21/2022) Received from [employer] [facility] [employer] [facility] Hunger Vital Sign Worried About Running Out of Food in the Last Year: Never true Ran Out of Food in the Last Year: Never true Transportation Needs: N (more content not included)... Normal [facility] Basophil percentageOrdered B y: Herberth Steele on 06-26-2023 Chloride [Moles/Vol] 108 mmol/L 98-[address] [facility] Glucose [Mass/Vol] 88 mg/dL 74-106 [place] [facility] Potassium [Moles/Vol] 3.8 mmol/L 3.5-5.1 [place] [facility] Sodium [Moles/Vol] 136 mmol/L 136-145 [facility] - Chemistry and C hemistry - challengeOrdered By: Herberth Steele on 06-26-2023 CO2 [Moles/Vol] 23.0 mmol/L 21.0-32.0 [facility] Urea nitrogen/Creatinine [Mass ratio] 14.4 mg/mg 10-20 [facility] No Panel InformationOrdered By: Herberth Steele on 06-26-2023 Estimated GFR (MDRD) Amer 84 mL/min >60 [facility] Comment on above: GFR Calc Estimated GFR (MDRD) Non-Af Amer 70 mL/min >60 [facility] Comment on above: Non- GFR Calc Serum or plasma calcium sameer urement (mass/volume)Ordered By: Herberth Steele on 06-26-2023 Calcium [Mass/Vol] 9.0 mg/dL 8.5-10.1 [facility] Serum or plasma creatinine m easurement (mass/volume)Ordered By: Herberth Steele on 06-26-2023 Creatinine [Mass/Vol] 0.97 mg/dL 0.55-1.02 [facility] Comment on above: The validity of the calculated GFR & GFRAA in patients over 70 years has not been determined. Clinical correlation is essential. Serum or plasma urea nitroge n measurement (mass/volume)Ordered By: Herberth Steele on 06-26-2023 Urea nitrogen [Mass/Vol] 14 mg/dL 7-18 [facility] Thin prep Papanicolaou smear with manual screeningOrdered By: Herberth Steele on 06-26-2023 Thin prep Papanicolaou smear with manual screening 5 5-15 [facility] Basophil percentageOrdered B y: Herberth Steele on 03-27-2023 Creatinine [Mass/Vol] 1.2 mg/dL 0.55-1.02 [facility] Laboratory - Chemistry and C hemistry - challengeOrdered By: Herberth Steele on 03-27-2023 GFR/1.73 sq M.predicted among non-blacks MDRD (S/P/Bld) [Vol rate/Area] 57.0000 mL/min/{1.73_m2} >60 [facility] Basophil percentageOrdered B y: Herberth Steele on 02-27-2023 Bilirubin [Mass/Vol] 0.70 mg/dL 0.20-1.[address] [facility] Comment on above: For patients on eltr ombopag therapy, use of Dimension [place] TBIL is not recommended. Chloride [Moles/Vol] 105 mmol/L 98-[address] [facility] Glucose [Mass/Vol] 101 mg/dL 74-106 [facility] Comment on above: Fasting Glucose resu lt from 100 to 125 mg/dL suggests IMPAIRED HOMEOSTASIS per A.D.A. criteria. Potassium [Moles/Vol] 4.1 mmol/L 3.5-5.1 [facility] Protein [Mass/Vol] 7.4 g/dL 6.4-8.2 [facility] Sodium [Moles/Vol] 136 mmol/L 136-145 [facility] WBC (Bld) [#/Vol] 7.7 10*3/uL 4.4-11.0 [facility] Blood erythrocytes count (nu mber/volume)Ordered By: Herberth Steele on 02-27-2023 RBC (Bld) [#/Vol] 4.70 10*6/uL 4.2-5.4 [facility] Blood hemoglobin measurement (mass/volume)Ordered By: Herberth Steele on 02-27-2023 Hemoglobin (Bld) [Mass/Vol] 15.0 g/dL 12.0-15.0 [facility] Blood platelet mean volumeOr dered By: Herberth Steele on 02-27-2023 Platelet mean volume (Bld) [Entitic vol] 10.3 fL 6.2-12.0 [facility] Determination of erythrocyte mean corpuscular volume (MCV)Ordered By: Herberth Steele on 02-27-2023 MCV (RBC) [Entitic vol] 92.3 fL 81-99 [facility] Hematocrit Auto (Bld) [Volum e fraction]Ordered By: Herberth Steele on 02-27-2023 Hematocrit (Bld) [Volume fraction] 43.4 % 37-47 [facility] Laboratory - Chemistry and C hemistry - challengeOrdered By: Herberth Steele on 02-27-2023 ALP [Catalytic activity/Vol] 78 U/L 45-117 [facility] ALT [Catalytic activity/Vol] 24 U/L 13-56 [facility] CO2 [Moles/Vol] 23.0 mmol/L 21.0-32.0 [facility] Cobalamin (Vitamin B12) [Mass/Vol] 243 pg/mL 211-911 [facility] Globulin (S) [Mass/Vol] 3.7 g/dL 2.2-4.2 [facility] Urea nitrogen/Creatinine [Mass ratio] 14.2 mg/mg 10-20 [facility] Laboratory - Hematology and Cell countsOrdered By: Herberth Steeel on 02-27-2023 Erythrocyte distribution width (RBC) [Entitic vol] 38.7 fL 35.1-43.9 [facility] Erythrocyte distribution width (RBC) [Ratio] 11.3 % 11.6-14.6 [facility] MCH (RBC) [Entitic mass] 31.9 pg 27.0-32.0 [facility] MCHC Auto (RBC) [Mass/Vol]Or dered By: Herberth Steele on 02-27-2023 MCHC (RBC) [Mass/Vol] 34.6 g/dL 32-36 [facility] No Panel InformationOrdered By: Herberth Steele on 02-27-2023 Estimated GFR (MDRD) Amer 71 mL/min >60 [facility] Comment on above: GFR Calc Estimated GFR (MDRD) Non-Af Amer 59 mL/min >60 [facility] Comment on above: Non- GFR Calc Free Lambda Light Chains, Quant Not Reportable [facility] Thyroid Stimulating Hormone (TSH) 1.32 uIU/mL 0.358-3.74 [facility] Whole Blood Vitamin B1 Level 111.8 nmol/L 66.5-200.0 [facility] Comment on above: Performed at: [address] [id number] Director: Jacy Cook MD, Phone: [phone] Platelets bldOrdered By: Maxi Steele on 02-27-2023 Platelets (Bld) [#/Vol] 310 10*3/uL 150-450 [facility] Serum immunoglobulin kappa l ight chains/immunoglobulin lambda light chains mass ratioOrdered By: Herberth [facility] 02-27-2023 Immunoglobulin light chains.kappa/Immunoglob ulin light chains.lambda (S) [Mass ratio] Not Reportable [facility] Serum or plasma albumin sameer urement (mass/volume)Ordered By: [facility] on 02-27-2023 Albumin [Mass/Vol] 3.7 g/dL 3.2-5.0 [facility] Serum or plasma albumin/glob ulin mass ratioOrdered By: [facility] on 02-27-2023 Albumin/Globulin [Mass ratio] 1.0 {ratio} 0.9-2.4 [facility] Serum or plasma calcium sameer urement (mass/volume)Ordered By: [facility] on 02-27-2023 Calcium [Mass/Vol] 8.9 mg/dL 8.5-10.1 [facility] Serum or plasma creatinine m easurement (mass/volume)Ordered By: [facility]th [facility]-2023 Creatinine [Mass/Vol] 1.13 mg/dL 0.55-1.02 [facility] Comment on above: The validity of the calculated GFR & GFRAA in patients over 70 years has not been determined. Clinical correlation is essential. Serum or plasma folate measu rement (mass/volume)Ordered By: Herberth [facility] on 02-27-2023 Folate [Mass/Vol] 20.90 ng/mL 3.1-55.4 [facility] Serum or plasma immunoglobul in kappa light chains measurement (mass/volume)Ordered By: Herberth Steele on 02-27-2023 Immunoglobulin light chains.kappa [Mass/Vol] See comment [facility] Comment on above: TEST RESULTS LIMITSF ree K+L Lt Chains,Qn,SFree [place] Lt Chains,S 15.4 mg/L 3.3-19.4Free Lambda Lt Chains,S 15.9 mg/L 5.7-26.3Kappa/Lambda Ratio,S 0.97 0.26-1.65 TESTING PERFORMED AT [facility]. ORIGINAL REPORT ON FILE IN LAB CONTAINS ADDITIONAL TEST SITE INFORMATION. Serum or plasma urea nitroge n measurement (mass/volume)Ordered By: Herberth Steele on 02-27-2023 Urea nitrogen [Mass/Vol] 16 mg/dL 7-18 [facility] Thin prep Papanicolaou smear with manual screeningOrdered By: Herberth Steele on 02-27-2023 Thin prep Papanicolaou smear with manual screening 17 U/L 15-37 [facility] Thin prep Papanicolaou smear with manual screening 8 5-15 [facility] Comprehensive metabolic 1998 panelon 08-02-2022 Albumin [Mass/Vol] 4.4 g/dL 3.6 - 5.1 g/dL [facility] ALP [Catalytic activity/Vol] 73 U/L 31 - 125 U/L [facility] ALT [Catalytic activity/Vol] 15 U/L 6 - 29 U/L [facility] Anion gap [Moles/Vol] 6 mmol/L Low [facility] AST [Catalytic activity/Vol] 19 U/L 10 - 30 U/L [facility] Bilirubin [Mass/Vol] 0.6 mg/dL 0.2 - 1 .2 mg/dL [facility] Calcium [Mass/Vol] 9.5 mg/dL 8.6 - 10. 2 mg/dL [facility] Chloride [Moles/Vol] 101 mmol/L 98 - 11 0 mmol/L [facility] CO2 [Moles/Vol] 28 mmol/L 20 - 32 mmol/L [facility] Creatinine [Mass/Vol] 1.11 mg/dL High 0.50 - 0.97 mg/dL [facility] GFR/1.73 sq M.predicted among non-blacks MDRD (S/P/Bld) [Vol rate/Area] 67 mL/min/{1.73_m2} > OR = 60 mL/min/1.7 3m2 [facility] Comment on above: The eGFR is based on the CKD-EPI 2020 equation. To calculate the new eGFR from a previous Creatinine or Cystatin C result, go to https://www.kidney.org/professionals/ kdoqi/gfr%5Fcalculator Glucose [Mass/Vol] 92 mg/dL 65 - 99 mg/dL [facility] Comment on above: Fasting reference interval Interpretation and review of laboratory results Abnormal [facility] Potassium [Moles/Vol] 4.9 mmol/L 3.5 - 5.3 mmol/L [facility] [employer] Protein [Mass/Vol] 7.3 g/dL 6.1 - 8.1 g/dL [facility] Sodium [Moles/Vol] 135 mmol/L 135 - 146 mmol/L [facility] Urea nitrogen [Mass/Vol] 18 mg/dL 7 - 25 mg/dL [facility] Hemoglobin A1con 08-02-2022 HbA1c (Bld) [Mass fraction] 4.9 % NINF [facility] Comment on above: For the purpose [...] diagnosis of diabetes in children. According to [place] Diabetes Association (ADA) guidelines, hemoglobin A1c <7.0% represents optimal control in non- diabetic patients. Different metrics may apply to specific patient populations. Standards of Medical Care in Diabetes(ADA). No Panel Informationon 08-02 [facility] Complete PFT pre and post br onchodilatorOrdered By: Nelson Machado on 06-27-2022 [facility] CR Chest PA/LATon 03-21-2022 CR Chest PA/LAT [id number] Radiology ACCESSION EXAM DATE/TIME PROCEDURE ORDERING PROVIDER [id number] 03/21/2022 15:22 EDT CR Chest PA and LAT DO FISCHER EUGENE F. CPT code 87204 Reason For Exam (CR Chest PA and [...] Transcribed Date and Time: 03/22/2022 9:17 Normal [facility] HCG,Urine Qualon 06-03-2021 Beta HCG ( test) Ql (U) Negative Normal Negative [facility] Comment on above: Result Comment: Plea se note: Very dilute urine specimens, as indicated by a low specific gravity, may not contain access services representative levels of hCG. If is still suspected, a first morning urine specimen should be collected 48 hours later and tested. is the most common reason for HCG in urine, although choriocarcinoma, hydatidiform mole, and certain nontropho- blastic malignancies also result in detectable urinary HCG levels. Sensitivity = 20mIU/mL. Performed By: #### H CGUR #### [facility] [address] [place] [address] Basic Metabolic Panelon 12-0 Anion gap [Moles/Vol] 9 mmol/L Normal 3-13 [facility] Comment on above: Performed By: #### H GHCT, BMP3M #### [facility] [address] [place] [address] Calcium [Mass/Vol] 9.1 mg/dL Normal 8.4-10.4 [facility] Comment on above: Performed By: #### H GHCT, BMP3M #### [facility] [address] [place] [address] CO2 [Moles/Vol] 24 mmol/L Normal 22-30 [facility] Comment on above: Performed By: #### H GHCT, BMP3M #### [facility] [address] [place] [address] Glucose [Mass/Vol] 95 mg/dL Normal 70-100 [facility] Comment on above: Performed By: #### H GHCT, BMP3M #### [facility] [address], [place] Urea nitrogen [Mass/Vol] 20 mg/dL Normal 9-20 [facility] Comment on above: Performed By: #### H GHCT, BMP3M #### [place] [address], [place] Creatinine [Mass/Vol] 0.87 mg/dL Normal 0.52-1.25 [facility] Comment on above: Performed By: #### H GHCT, BMP3M #### [place] [address] [place], [place] GFR/1.73 sq M.predicted among blacks MDRD (S/P/Bld) [Vol rate/Area] mL/min/{1.73_m2} Normal >60 [facility] Comment on above: Performed By: #### H GHCT, BMP3M #### [place] [address] [place], [place] GFR/1.73 sq M.predicted among non-blacks MDRD (S/P/Bld) [Vol rate/Area] 88.2 mL/min/{1.73_m2} Normal >60 [facility] Comment on above: Result Comment: KDIG O [...] serum creatinine in children is the Bedside Maloly equation. It is less accurate in patients with extremes of muscle mass, restriction of dietary protein, ingestion of creatine, extra-renal metabolism of creatinine, or treatment with medications that affect renal tubular creatinine secretion. Performed By: #### H GHCT, BMP3M #### [place] [address] [place], [place] Potassium [Moles/Vol] 4.5 mmol/L Normal 3.5-5.1 [facility] Comment on above: Performed By: #### H JOEL BMP3M #### [facility] [address], [place] Sodium [Moles/Vol] 136 mmol/L Normal 135-145 [facility] Comment on above: Performed By: #### H JOEL BMP3M #### [place] [address] [address], [place] Chloride [Moles/Vol] 103 mmol/L Normal 98-107 [facility] Comment on above: Performed By: #### H JOEL BMP3M #### [place] [address] [address], [place] Hemoglobin AND Hematocriton 05-31-2021 Hematocrit (Bld) [Volume fraction] 40.6 % Normal 35.0-47.0 [facility] Comment on above: Performed By: #### Selena MALDONADO BMP3M #### [place] [address] [address], [place] Hemoglobin (Bld) [Mass/Vol] 14.0 g/dL Normal 11.7-16.0 [facility] Comment on above: Performed By: #### Selena MALDONADO BMP3M #### [place] [address] [address], [place] ARTHR/ASP/INJ MAJOR JT/BU RSA RT WO USOrdered By: Pinky Romero on 10-29-2020 Patient Name: CHERYL MASON Fluoroscopy ACCESSION EXAM DATE/TIME PROCEDURE ORDERING PROVIDER [id number] 10/29/2020 13:09 EDT RF Arthrogram Aspir Bhupinder ROMERO MD, PINKY Barrett Jt Right CPT code 08856 [id number] Reason For Exam (RF Arthrogram Aspir Inj [...] joint is intact without evidence of a united [place] joint effusion. Slight downsloping of the distal-lateral [...] Phone: [facility], [facility] Incoming Radiology Results From [facility] - 10/29/2020 2:21 PM EDT [facility]: [id number] Fluoroscopy ACCESSION EXAM DATE/TIME PROCEDURE ORDERING PROVIDER [id number] 10/29/2020 13:09 EDT RF Arthrogram Aspir Inj MD NICK, PINKY Arnold Jt Right CPT code 85380 [id number] Reason For Exam (RF Arthrogram Aspir Inj [...] joint is intact without evidence of a united [place] joint effusion. Slight downsloping of the distal-lateral [...] Romero on 10-29-2020 Patient Name: CHERYL MASON [facility]#: [id number] Magnetic Resonance Imaging ACCESSION EXAM DATE/TIME PROCEDURE ORDERING PROVIDER [id number] 10/29/2020 13:53 EDT MRI Up Ext Joint w/ MD NICK, PINKY Patiño Right CPT code 71341 Reason For Exam (MRI Up Ext Joint [...] joint is intact without evidence of a united [place] joint effusion. Slight downsloping of the distal-lateral [...] Time: 10/29/2020 2:19 [facility] Work Phone: Deric, [facility] Incoming Radiology Results From [facility] - 10/29/2020 2:21 PM EDT Patient Name: CHERYL WOOD Magnetic Resonance Imaging ACCESSION EXAM DATE/TIME PROCEDURE ORDERING PROVIDER [id number] 10/29/2020 13:53 EDT MRI Up Ext Joint w/ MD NICK, PINKY Contrast Right CPT code 11685 Reason For Exam (MRI Up Ext Joint [...] joint is intact without evidence of a united [place] joint effusion. Slight downsloping of the distal-lateral [...] Name: [id number] Magnetic Resonance Imaging ACCESSION EXAM DATE/TIME PROCEDURE ORDERING PROVIDER [id number] 10/29/2020 13:53 EDT MRI Up Ext Joint w/ MD NICK, PINKY Contrast Right CPT code 76998 Reason For Exam (MRI Up Ext Joint [...] joint is intact without evidence of a united [place] joint effusion. Slight downsloping of the distal-lateral [...] JASON Transcribed Date and Time: 10/29/2020 2:19 [facility] RF Arthrogram Aspir Inj Arnold Jt Righton 10-29-2020 RF Arthrogram Aspir Inj Arnold Jt Right [facility]: [id number] Fluoroscopy ACCESSION EXAM DATE/TIME PROCEDURE ORDERING PROVIDER [id number] 10/29/2020 13:09 EDT RF Arthrogram Aspir Inj MD NICK, PINKY Arnold Jt Right CPT code 80523 [id number] Reason For Exam (RF Arthrogram Aspir Inj [...] joint is intact without evidence of a united [place] joint effusion. Slight downsloping of the distal-lateral [...] Transcribed Date and Time: 10/29/2020 2:19 Normal [facility] XR Shoulder Right 2 VWon Patient [facility]: [id number] Diagnostic Radiology ACCESSION EXAM DATE/TIME PROCEDURE ORDERING PROVIDER [id number] 08/09/2020 14:46 EST CR Shoulder 2+ Views MD ROB, NIURKA Sandoval Right CPT code 58539 Reason For Exam (CR Shoulder 2+ Views [...] Phone: [facility], [facility] Incoming Radiology Results From [facility] - 08/09/2020 2:58 PM EST Patient [facility]: [id number] Diagnostic Radiology ACCESSION EXAM DATE/TIME PROCEDURE ORDERING PROVIDER [id number] 08/09/2020 14:46 EST CR Shoulder 2+ Views MD ROB, NIURKA Sandoval Right CPT code 18992 Reason For Exam (CR Shoulder 2+ Views [...] 2:58 [facility] Work Phone: Progress Noteon 02-16-2018 Senior Project Engineer Authentication Interface Message Text VisitSubjective: Cheryl Wood is a 27 y.o. female who presents for a postpartumvisit. She is 6 week following a LTCS. I have fully reviewed theprenatal and intrapartum course. The delivery was at 27 gestational weeks due tonon reassuring heart rate pattern. Pt with PPROM since 19 weeks. Delivering Provider: Izzy Marinelli. course has been unremarkable. Baby's course has [...] was spent counseling and coordinating care. Normal [facility] Progress Noteon 01-18-2018 Senior Project Engineer Authentication Interface Message Text VisitSubjective: Cheryl Wood is a 27 y.o. female approximately 2 weekspostpartum presenting for her incision check. She underwent an emergent RLTCS inthe setting of previable PROM and cord prolapse. Cheryl denies any complaints.Her female infant is stable in the NCIU. Cheryl reports [...] was spent counseling and coordinating care.Luis Fernando Westbrook DO Normal [facility] Progress Noteon 12-03-2017 Senior Project Engineer Authentication Interface Message Text Clinical case reviewed with Dr. Granado, Dr. Croft regarding celestone administration. Concern for potential for contractions with celestone administration. Pt with complete previa. Will hold on celestone until admit to hospital at 24 weeks. 12/08/17 Normal [facility] Progress Noteon 12-02-2017 Senior Project Engineer Authentication Interface Message Text Routine VisitSubjective: Cheryl [...] on ultrasound- POC reviewed with Dr. Greene- rebekah previously given- precautions reviewed Heart palpitations 11/16/2017 [...] Growth every 4 weeks pending sizeDELIVERY PLANHospital: [facility] at 34 weeks or sooner if indicatedGBS culture:Contraception: Premature rupture of membranes in , antepartum 11/03/2017 19 weeks Consult with neonatology/Palliative done- plan for inpatient admission 24weeks Pt to continue to check temp at home Precautions reviewed Obesity affecting [place] of medicine recommend weight gain in : [...] was spent counseling and coordinating care. Normal [facility] Complete Blood Counton 11-25 Differential Complete Manual Normal [facility] Comment on above: Performed By: #### C BC ####[address] [phone] Erythrocyte distribution width Auto Ratio (RBC) 12.2 % Normal 0.0-14.4 [facility] Comment on above: Performed By: #### C BC ####[address] [phone] Hematocrit Auto Volume Fraction (Bld) 36.1 % Normal 36.0-44.0 [facility] Comment on above: Performed By: #### C BC ####[address] [phone] Hemoglobin mass conc (Bld) 12.8 g/dL Normal 12.0-15.0 [facility] Comment on above: Performed By: #### C BC ####[address] [phone] Immature granulocytes/100 WBC (Bld) 0.40 % Normal [facility] Comment on above: Result Comment: [place] ture Granulocyte Percent includes promyelocytes, myelocytes,and metamyelocytes. IG% > 1.0 indicates a left shift ispresent. With automated differentials, bands are includedin the neutrophil count and not in the Immature GranulocytePercent. Performed By: #### C BC ####[address] [phone] MCH Auto Entitic mass (RBC) 32.5 pg Normal 26.0-34.0 [facility] Comment on above: Performed By: #### C BC ####[address] [phone] MCHC Auto mass conc (RBC) 35.5 % Normal 31.0-37.0 [facility] Comment on above: Performed By: #### C BC ####[address] [phone] MCV Auto Entitic volume (RBC) 91.6 fL Normal 80.0-100.0 [facility] Comment on above: Performed By: #### C BC ####[address] [phone] Nucleated RBC/100 WBC Ratio (Bld) 0.0 % Normal -1.0-0.0 [facility] Comment on above: Performed By: #### C BC ####[address] [phone] Platelet mean volume Auto Entitic volume (Bld) 10.6 fL Normal [facility] Comment on above: Result Comment: MPV is plateletrange and agedependent Performed By: #### C BC ####[address] [phone] Platelets Auto #/vol (Bld) 273 10*3/uL Normal 150-450 [facility] Comment on above: Performed By: #### C BC ####[address] [phone] RBC Auto #/vol (Bld) 3.94 10E12/L Low 4.00-4.90 [facility] Comment on above: Performed By: #### C BC ####[address] [phone] WBC Auto #/vol (Bld) 10.9 10*3/uL Normal 4.5-11.0 [facility] Comment on above: Performed By: #### C BC ####[address] [phone] Manual Differentialon 2017 Absolute Neutrophil No. 8.2 Normal [facility] Comment on above: Performed By: #### M DIFF ####[address] [phone] Anisocytosis Slight Normal [facility] Comment on above: Performed By: #### M DIFF ####[address] [phone] Atypical Lymphocytes 1 % Normal 0-8 [facility] Comment on above: Performed By: #### M DIFF ####[facility] of [address] [phone] Band Neutrophils 5 % Normal 5-11 [facility] Comment on above: Performed By: #### M DIFF ####[facility] of [address] [phone] Lymphocytes 22 % Low 24-44 [facility] Comment on above: Performed By: #### M DIFF ####[facility] of [address] [phone] Metamyelocytes 0 % Normal 0-0 [facility] Comment on above: Performed By: #### M DIFF ####[facility] of [address] [phone] Monocytes 2 % Low 3-6 [facility] Comment on above: Performed By: #### M DIFF ####[facility] [facility] [address] [phone] Myelocytes 0 % Normal 0-0 [facility] Comment on above: Performed By: #### M DIFF ####[facility] of [address] [phone] Polychromasia Occasional Normal [facility] Comment on above: Performed By: #### M DIFF ####[facility] of [address] [phone] Promyelocytes 0 % Normal 0-0 [facility] Comment on above: Performed By: #### M DIFF ####[facility] of [address] [phone] Segmented Neutrophils 70 % High 35-66 [facility] Comment on above: Performed By: #### M DIFF ####[facility] of [address] [phone] Progress Noteon 11-25-2017 Senior Project Engineer Authentication Interface Message Text PALLIATIVE CARE / CONSULTName: Cheryl Wood : 1990Date: November 25, 2017Cheryl Wood is being seen today for a Pediatric Palliative Careconsult at the request of Dr Greene from [facility] for our opinion or medicaladvice regarding Family Support.History of Present IllnessCheryl Wood is a 27 y.o. woman [facility], Titi Ramsey.Cheryl [...] developed, baby's size, etc. Discussed that the longerCheryl could remain the better the baby's survival chances would be,however acknowledged that this is a delicate balance as we worry about both thebaby's health and safety and mom's health and safety. She discussed the processof delivery, resuscitation/stabilizati on at [facility] or [facility] and then transfer [facility]. Acknowledged that [...] Female 2 yrsLiving in the home:Titi Tafoya, Gretchenccupation and employer: Titi - employed, has FMLY Tafoya - not currently working since went on bedrestSources of financial support:WagesAnticipated custody issues: no custody issuesSpecific stressors: Current diagnosisPrevious losses: Not discussedCoping strategies and sources of support: discussion and familySPIRITUALTradition & Community: Do not have a tamir background or restorationism they identifywithImportance: NARituals: NACODE STATUS for the baby at :FullROSPertinent items are noted in HPI. Please see H&P.Palliative Care Flowsheet completed: yesIf no, why?PHYSICAL EXAMGeneral: Awake, alert, intermittently tearfulHead: ATNCNose: No drainageMouth: Mucous membranes moistResp: Easy, nonlaboredAbd: chart review was completed and this case [facility] Dr. Greene, Dr. Reyes, and Dario Salinas, DARREN..ASSESSMENT & PLANASSESSMENT:Cheryl Wood is a 27 y.o. [...] to survive.//D elivery details: Preferred delivery hospital: [facility] at present (though mom was also thinkingabout [facility]) Desire for a formal Plan: No- We [...] to meet with parents again atfollow up MFM appts if support is needed.- We provided [...] Involve social work to assist [facility] Involve social work to assess and address [...] consult.Deloris Ramsay 2017Counseling and/or coordination of care ([id number] time in theoffice/outpatient setting or floor/unit time in the hospital) was greater than50 minutes, which is more than 50% of the total time of 70 minutes spent on theencounter.Time in 11:30 amTime out 12:40 pm Normal [facility] Senior Project Engineer Authentication Interface Message Text Routine VisitSubjective: Cheryl [...] CBC today Heart palpitations 11/16/2017 Seen by [facility] cardiology [...] Growth every 4 weeks pending sizeDELIVERY PLANHospital: [facility]C/S at 34 weeks or sooner if indicatedGBS culture:Contraception: Premature rupture of membranes in , antepartum 11/03/2017 19 weeks Consult with neonatology/Palliative today Pt to continue to check temp at home Precautions reviewed Obesity affecting [place] [employer] recommend weight gain in : [...] was spent counseling and coordinating care. Normal [facility] Senior Project Engineer Authentication Interface Message Text Patient seen with [...] was spent counseling and coordinating care. Normal [facility] Progress Noteon 11-16-2017 Senior Project Engineer Authentication Interface Message Text Routine VisitSubjective: Cheryl [...] Growth every 4 weeks pending sizeDELIVERY PLANHospital: [place], undecided on which hospitalInduction at 34 weeks or sooner if indicatedGBS culture:Contraception: Premature rupture of membranes in , antepartum 11/03/2017 19 weeks Consult with neonatology next week to determine timing of inpt admission. Obesity affecting We reviewed that obesity complicating is associated with increasedmaternal and risks including: gestational diabetes, hypertensivedisorders, iatrogenic delivery, dysfunctional labor, postterm ,large for gestational age infant, shoulder dystocia, obstructive sleep apnea, hemorrhage, stillbirth, anomalies, delivery andpostcesarean complications. [place] of medicine recommend weight gain in : [...] was spent counseling and coordinating care. Normal [facility] Progress Noteon 11-09-2017 Senior Project Engineer Authentication Interface Message Text IVETTE VisitSubjective: Cheryl [...] management with admission around 24-25 weeks. [facility].2. Obesity. We briefly reviewed that obesity complicating isassociated with increased maternal and risks including: gestationaldiabetes, hypertensive disorders, iatrogenic delivery, dysfunctionallabor, postterm , large for gestational age infant, shoulder dystocia,obstructive sleep apnea, hemorrhage, stillbirth, anomalies, delivery and postcesarean complications. Weight gain during pregnancyshould be limited to 10-15 lbs according to the [place] [employer]. Patientdeclines nutrition consult.3. Rh negative. Will need Rhogam every 12 weeks. Had last dose around 10/22.4. care. We discussed our practice that has 5 physicians and 2 nursepractitioners. We also discussed potential use of program control analyst provider, whichpatient accepted. Patient understands that delivery will be in [place].Plan:1. RTC for weekly OB visits per [facility] plan of care.2. Ultrasound next week to complete anatomy.3. Admission to hospital 24-25 weeks.The total patient time of the visit was 10 minutes, of which greater than 50% ofthe time was spent counseling and coordinating care. Normal [facility] Progress Noteon 11-04-2017 Senior Project Engineer Authentication Interface Message Text The total patient time of the visit was 60 minutes, of which greater than 50% of the time was spent counseling and coordinating care. Patient declined medical consultation today. She will need nutrition consult. Rhogam q12 weeks. Normal [facility] Senior Project Engineer Authentication Interface Message Text Met with patient and FOB Titi Seo for PROM at 19 weeks- confirmed yesterday Medical, surgical and family hx reviewedrH negative- Last rHogam 10/22 per ptMarginal previa- reports intermittent bleeding since 7 weeks.Denies abdominal pain, fever. Started on Zithromax yesterdayPsycho/Social risk:Support System: FOBFinancial Stressors: deniesFamily Dynamics: lives with FOB and daughterBehavioral Health Issues: deniesWork History: full timeType of Work: [employer] Information on [facility] services given.Consent to share information with FTC team, OB and speed reading teacher signed. Pt would like to Transfer care [...] was spent counseling and coordinating care. Normal [facility] Emergency Room Note on 02-27-2017 [facility] Note Normal [facility] ([place]) .Urinalysis Microscopic (AO) on 02-26-2017 UA Squam Epithelial None Seen Normal None Seen [facility] ([place]) Comment on above: Performed By: #### U A, UAMICAO, PREGU ####[address] [place], [place] [address] UA WBC None Seen Normal None Seen [facility] ([place]) Comment on above: Performed By: #### U A, UAMICAO, PREGU ####[address] [place], [place] [address] Urine, erythrocytes None Seen Normal None Seen [facility] ([place]) Comment on above: Performed By: #### U A, UAMICAO, PREGU ####[address] [place], [place] [address] PREGUon 02-26-2017 HCG ( test) Ql (U) Negative Normal [facility] ([place]) Comment on above: Performed By: #### U A, UAMICAO, PREGU ####[address] [place], [place] [address] test (u) int HCG not detected. Invalid Interpretation Code [facility] ([place]) Comment on above: Performed By: #### U A, UAMICAO, PREGU ####[address] [place], [place] [address] Patient Summary Documentson 02-26-2017 Patient Summary Documents Normal [facility] ([place]) UAon 02-26-2017 UA Appear CLEAR Normal [facility] ([place]) Comment on above: Performed By: #### U A, UAMICAO, PREGU ####[address] [place], [place] [address] UA Blood Negative [facility] ([place]) Comment on above: Performed By: #### U A, UAMICAO, PREGU ####[address] [place] [address] UA Leuk Est Negative [facility] ([place]) Comment on above: Performed By: #### U A, UAMICAO, PREGU ####[address] [place] [address] UA Nitrite Negative [facility] ([place]) Comment on above: Performed By: #### U A, UAMICAO, PREGU ####[address] [place] [address] UA pH 6.0 [facility] ([place]) Comment on above: Performed By: #### U A, UAMICAO, PREGU ####[address] [place] [address] UA Protein Negative [facility] ([place]) Comment on above: Performed By: #### U A, UAMICAO, PREGU ####[address] [place] [address] UA Spec Grav <=1.005 Abnormal [facility] ([place]) Comment on above: Performed By: #### U A, UAMICAO, PREGU ####[address] [place] [address] UA Specimen Type Clean Catch [facility] ([place]) Comment on above: Performed By: #### U A, UAMICAO, PREGU ####[address] [place] [address] UA Urobilinogen 0.2 E.U./dL [facility] ([place]) Comment on above: Performed By: #### U A, UAMICAO, PREGU ####[address] [place] [address] Urine, color YELLOW [facility] ([place]) Comment on above: Performed By: #### U A, UAMICAO, PREGU ####[address] [place], [place] [address] Urine, glucose Negative Normal [facility] ([place]) Comment on above: Performed By: #### U A, UAMICAO, PREGU ####[address] [place], [place] [address] Urine, ketones presence Negative Normal A [facility] ([place]) Comment on above: Performed By: #### U A, UAMICAO, PREGU ####[address] [place], [place] [address] Urine, urobilinogen Negative Normal [facility] ([place]) Comment on above: Performed By: #### U A, UAMICAO, PREGU ####[address] [place], [place] [address] Vital Signs Date Time Vital Sign Value Performing Clinician Facility 03-07-2025 16:01-0400 Body height 175.26 cm No Primary Care Physician [facility] 03-07-2025 15:56-0400 Body mass index (BMI) [Ratio] 43.7 kg/m2 No Primary Care Physician [facility] 03-07-2025 15:56-0400 Body weight 134.29 kg No Primary Care Physician [facility] 03-07-2025 15:56-0400 Diastolic blood pressure 88 mm[Hg] No Primary Care Physician [facility] 03-07-2025 15:56-0400 Systolic blood pressure 136 mm[Hg] No Primary Care Physician [facility] 03-04-2025 18:19-0400 Body temperature 98.7 [degF] No Primary Care Physician [facility] 03-04-2025 18:19-0400 Diastolic blood pressure 93 mm[Hg] No Primary Care Physician [facility] 03-04-2025 18:19-0400 Heart rate 99 /min No Primary Care Physician [facility] 03-04-2025 18:19-0400 Respiratory rate 18 /min No Primary Care Physician [facility] 03-04-2025 18:19-0400 SaO2% (BldA) [Mass fraction] 100 % No Primary Care Physician [facility] 03-04-2025 18:19-0400 Systolic blood pressure 153 mm[Hg] No Primary Care Physician [facility] 03-04-2025 16:28-0400 Body height 175.26 cm No Primary Care Physician [facility] 03-04-2025 16:28-0400 Body mass index (BMI) [Ratio] 44.6 kg/m2 No Primary Care Physician [facility] 03-04-2025 16:28-0400 Body weight 136.98 kg No Primary Care Physician [facility] 10-05-2024 18:09-0400 Body temperature 96.9 [degF] Dr. Abhi Cooper DO Work Phone: 9(337)094-891258 [place] [address] 10-05-2024 18:09-0400 Diastolic blood pressure 78 mm[Hg] Dr. Abhi Cooper DO Work Phone: 6(165)515-127958 [place] [address] 10-05-2024 18:09-0400 Heart rate 68 /min Dr. Abhi Cooper DO Work Phone: 1(121)090-136958 [place] [address] 10-05-2024 18:09-0400 Respiratory rate 13 /min Dr. Abhi Cooper DO Work Phone: [facility] 10-05-2024 18:09-0400 SaO2% (BldA) [Mass fraction] 99 % Dr. Abhi Cooper DO Work Phone: [facility] 10-05-2024 18:09-0400 Systolic blood pressure 142 mm[Hg] Dr. Abhi Cooper DO Work Phone: [facility] 10-05-2024 16:55-0400 Body height 175.[address] Abhi Cooper DO Work Phone: [facility] 10-05-2024 16:55-0400 Body mass index (BMI) [Ratio] 44.6 kg/m2 Dr. Abhi Cooper DO Work Phone: [facility] 10-05-2024 16:55-0400 Body weight 136.[address] Abhi Cooper DO Work Phone: [facility] 09-28-2024 16:43-0400 Body height 175.[address] Abhi Cooper DO Work Phone: [facility] 09-28-2024 16:43-0400 Body mass index (BMI) [Ratio] 43.6 kg/m2 Dr. Abhi Cooper DO Work Phone: 9(734)473-469058 [place] [address] 09-28-2024 16:43-0400 Body temperature 97.2 [degF] Dr. Abhi Cooper DO Work Phone: 9(864)764-279258 [place] [address] 09-28-2024 16:43-0400 Body weight [address] Abhi Cooper DO Work Phone: 2(225)262-724758 [place] [address] 09-28-2024 16:43-0400 Diastolic blood pressure 72 mm[Hg] Dr. Abhi Cooper DO Work Phone: 2(903)552-098758 [place] [address] 09-28-2024 16:43-0400 Heart rate 70 /min Dr. Abhi Cooper DO Work Phone: 6(931)485-200158 [place] [address] 09-28-2024 16:43-0400 Respiratory rate 18 /min Dr. Abhi Cooper DO Work Phone: 8(644)990-882058 [place] [address] 09-28-2024 16:43-0400 SaO2% (BldA) [Mass fraction] 100 % Dr. Abhi Cooper DO Work Phone: 5(078)552-434158 [place] [address] 09-28-2024 16:43-0400 Systolic blood pressure 154 mm[Hg] Dr. Abhi Cooper DO Work Phone: 8(524)521-528458 [place] [address] 09-24-2024 16:50-0400 Body height 175.[address] Abhi Cooper DO Work Phone: 1(403)300-280058 [place] [address] 09-24-2024 16:50-0400 Body mass index (BMI) [Ratio] 43.9 kg/m2 Dr. Abhi Cooper DO Work Phone: 4(008)394-381558 [place] [address] 09-24-2024 16:50-0400 Body temperature 98.2 [degF] Dr. Abhi Cooper DO Work Phone: 8(912)215-641258 [place] [address] 09-24-2024 16:50-0400 Body weight 135.[address] Abhi Cooper DO Work Phone: 3(666)770-650458 [place] [address] 09-24-2024 16:50-0400 Diastolic blood pressure 70 mm[Hg] Dr. Abhi Cooper DO Work Phone: 7(817)651-514758 [place] [address] 09-24-2024 16:50-0400 Heart rate 66 /min Dr. Abhi Cooper DO Work Phone: 1(003)736-097758 [place] [address] 09-24-2024 16:50-0400 Respiratory rate 12 /min Dr. Abhi Cooper DO Work Phone: 6(821)772-480558 [place] [address] 09-24-2024 16:50-0400 SaO2% (BldA) [Mass fraction] 100 % Dr. Abhi Cooper DO Work Phone: 2(726)110-376658 [place] [address] 09-24-2024 16:50-0400 Systolic blood pressure 124 mm[Hg] Dr. Abhi Cooper DO Work Phone: 0(807)721-174558 [place] [address] 09-21-2024 18:33-0400 Body height 175.[address] Abhi Cooper DO Work Phone: 2(847)505-021958 [place] [address] 09-21-2024 18:33-0400 Body mass index (BMI) [Ratio] 43.9 kg/m2 Dr. Abhi Cooper DO Work Phone: 2(469)184-590158 [place] [address] 09-21-2024 18:33-0400 Body temperature 97.6 [degF] Dr. Abhi Cooper DO Work Phone: 9(613)957-698858 [place] [address] 09-21-2024 18:33-0400 Body weight 135.[address] Abhi oCoper DO Work Phone: 2(717)750-401858 [place] [address] 09-21-2024 18:33-0400 Diastolic blood pressure 99 mm[Hg] Dr. Abhi Cooper DO Work Phone: 4(083)694-813758 [place] [address] 09-21-2024 18:33-0400 Heart rate 79 /min Dr. Abhi Cooper DO Work Phone: [facility] 09-21-2024 18:33-0400 Respiratory rate 15 /min Dr. Abhi Cooper DO Work Phone: [facility] 09-21-2024 18:33-0400 SaO2% (BldA) [Mass fraction] 99 % Dr. Abhi Cooper DO Work Phone: [facility] 09-21-2024 18:33-0400 Systolic blood pressure 134 mm[Hg] Dr. Abhi Cooper DO Work Phone: [facility] 04-29-2024 13:22-0400 Body height 175.3 cm Shay Izquierdo MD Work Phone: [facility] 04-29-2024 13:22-0400 Body mass index (BMI) [Ratio] 43.86 kg/m2 Shay Izquierdo MD Work Phone: [facility] 04-29-2024 13:22-0400 Body weight 134.72 kg Shay Izquierdo MD Work Phone: [facility] 04-29-2024 13:22-0400 Diastolic blood pressure 81 mm[Hg] Shay Izquierdo MD Work Phone: [facility] 04-29-2024 13:22-0400 Systolic blood pressure 121 mm[Hg] Shay Izquierdo MD Work Phone: [facility] 04-22-2024 12:55-0400 Body height 175.3 cm Jason Castro APRN - CHEESE PROCESSOR Work Phone: [facility] 04-22-2024 12:55-0400 Body mass index (BMI) [Ratio] 43.86 kg/m2 Jason Castro APRN - CHEESE PROCESSOR Work Phone: [facility] [employer] 04-22-2024 12:55-0400 Body weight 134.72 kg Jason Castro VP SOFTWARE SUPPORT - CHEESE PROCESSOR Work Phone: [facility] 04-22-2024 12:55-0400 Diastolic blood pressure 80 mm[Hg] Jason Castro APRN - CHEESE PROCESSOR Work Phone: [facility] 04-22-2024 12:55-0400 Heart rate 72 /min Jason Castro VP SOFTWARE SUPPORT - CHEESE PROCESSOR Work Phone: [facility] 04-22-2024 12:55-0400 Systolic blood pressure 129 mm[Hg] Jason Castro VP SOFTWARE SUPPORT - CHEESE PROCESSOR Work Phone: [facility] 04-16-2024 17:35-0400 Diastolic blood pressure 112 mm[Hg] [facility] 04-16-2024 17:35-0400 Heart rate 81 /min [facility] 04-16-2024 17:35-0400 Respiratory rate 20 /min [facility] 04-16-2024 17:35-0400 SaO2% (BldA) [Mass fraction] 98 % [facility] 04-16-2024 17:35-0400 Systolic blood pressure 160 mm[Hg] [facility] 06-23-2023 14:32-0500 Body mass index (BMI) [Ratio] 44.6 kg/m2 Dr. Wilfredo Fischer Work Phone: [facility] 06-23-2023 14:32-0500 Body temperature 98.6 [degF] Dr. Wilfredo Fischer Work Phone: [facility] 06-23-2023 14:32-0500 Body weight 137.[address] Wilfredo Fischer Work Phone: [facility] 06-23-2023 14:32-0500 Diastolic blood pressure 82 mm[Hg] Dr. Wilfredo Fischer Work Phone: [facility] 06-23-2023 14:32-0500 Heart rate 84 /min Dr. Wilfredo Fischer Work Phone: [facility] 06-23-2023 14:32-0500 Respiratory rate 17 /min Dr. Wilfredo Fischer Work Phone: [facility] 06-23-2023 14:32-0500 SaO2% (BldA) [Mass fraction] 98 % Dr. Wilfredo Fischer Work Phone: [facility] 06-23-2023 14:32-0500 Systolic blood pressure 120 mm[Hg] Dr. Wilfredo Fischer Work Phone: [facility] 06-04-2023 15:07-0500 Body temperature 98.4 [degF] Dr. Wilfredo Fischer Work Phone: [facility] 06-04-2023 15:07-0500 Body weight 137.[address] Wilfredo Fischer Work Phone: [facility] 06-04-2023 15:07-0500 Diastolic blood pressure 78 mm[Hg] Dr. Wilfredo Fischer Work Phone: [facility] 06-04-2023 15:07-0500 Heart rate 80 /min Dr. Wilfredo Fischer Work Phone: [facility] 06-04-2023 15:07-0500 Respiratory rate 14 /min Dr. Wilfredo Fischer Work Phone: [facility] 06-04-2023 15:07-0500 SaO2% (BldA) [Mass fraction] 99 % Dr. Wilfredo Fischer Work Phone: [facility] 06-04-2023 15:07-0500 Systolic blood pressure 115 mm[Hg] Dr. Wilfredo Fischer Work Phone: [facility] 04-20-2023 15:59-0400 Body mass index (BMI) [Ratio] 45 kg/m2 Dr. Wilfredo Fischer Work Phone: [facility] 04-20-2023 15:59-0400 Body temperature 99.1 [degF] Dr. Wilfredo Fischer Work Phone: [facility] 04-20-2023 15:59-0400 Body weight 138.[address] Wilfredo Fischer Work Phone: [facility] 04-20-2023 15:59-0400 Diastolic blood pressure 70 mm[Hg] Dr. Wilfredo Fischer Work Phone: [facility] 04-20-2023 15:59-0400 Heart rate 76 /min Dr. Wilfredo Fischer Work Phone: [facility] 04-20-2023 15:59-0400 Respiratory rate 17 /min Dr. Wilfredo Fischer Work Phone: [facility] 04-20-2023 15:59-0400 SaO2% (BldA) [Mass fraction] 99 % Dr. Wilfredo Fischer Work Phone: [facility] 04-20-2023 15:59-0400 Systolic blood pressure 120 mm[Hg] Dr. Wilfredo Fischer Work Phone: [facility] 04-08-2023 15:53-0400 Body mass index (BMI) [Ratio] 45.1 kg/m2 Dr. Wilfredo Fischer Work Phone: [facility] 04-08-2023 15:53-0400 Body temperature 98.6 [degF] Dr. Wilfredo Fischer Work Phone: [facility] 04-08-2023 15:53-0400 Body weight 138.[address] Wilfredo Fischer Work Phone: [facility] 04-08-2023 15:53-0400 Diastolic blood pressure 68 mm[Hg] Dr. Wilfredo Fischer Work Phone: [facility] 04-08-2023 15:53-0400 Heart rate 96 /min Dr. Wilfredo Fischer Work Phone: [facility] 04-08-2023 15:53-0400 Respiratory rate 17 /min Dr. Wilfredo Fischer Work Phone: [facility] 04-08-2023 15:53-0400 SaO2% (BldA) [Mass fraction] 98 % Dr. Wilfredo Fischer Work Phone: [facility] 04-08-2023 15:53-0400 Systolic blood pressure 128 mm[Hg] Dr. Wilfredo Fischer Work Phone: [facility] 03-18-2023 11:15-0400 Body mass index (BMI) [Ratio] 44 kg/m2 Dr. Wilfredo Fischer Work Phone: [facility] 03-18-2023 11:15-0400 Body temperature 98.2 [degF] Dr. Wilfredo Fischer Work Phone: [facility] 03-18-2023 11:15-0400 Body weight 135.[address] Wilfredo Fischer Work Phone: [facility] 03-18-2023 11:15-0400 Diastolic blood pressure 70 mm[Hg] Dr. Wilfredo Fischer Work Phone: [facility] 03-18-2023 11:15-0400 Heart rate 84 /min Dr. Wilfredo Fischer Work Phone: [facility] 03-18-2023 11:15-0400 Respiratory rate 17 /min Dr. Wilfredo Fischer Work Phone: [facility] 03-18-2023 11:15-0400 SaO2% (BldA) [Mass fraction] 99 % Dr. Wilfredo Fischer Work Phone: [facility] 03-18-2023 11:15-0400 Systolic blood pressure 116 mm[Hg] Dr. Wilfredo Fischer Work Phone: [facility] 02-24-2023 09:16-0400 Body height 175.[address] Wilfredo Fischer Work Phone: [facility] 02-24-2023 09:16-0400 Body mass index (BMI) [Ratio] 44 kg/m2 Dr. Wilfredo Fischer Work Phone: [facility] 02-24-2023 09:16-0400 Body temperature 98.6 [degF] Dr. Wilfredo Fischer Work Phone: [facility] 02-24-2023 09:16-0400 Body weight 135.[address] Wilfredo Fischer Work Phone: [facility] 02-24-2023 09:16-0400 Diastolic blood pressure 80 mm[Hg] Dr. Wilfredo Fischer Work Phone: [facility] 02-24-2023 09:16-0400 Heart rate 102 /min Dr. Wilfredo Fischer Work Phone: [facility] 02-24-2023 09:16-0400 Respiratory rate 17 /min Dr. Wilfredo Fischer Work Phone: [facility] 02-24-2023 09:16-0400 SaO2% (BldA) [Mass fraction] 97 % Dr. Wilfredo Fischer Work Phone: [facility] 02-24-2023 09:16-0400 Systolic blood pressure 116 mm[Hg] Dr. Wilfredo Fischer Work Phone: [facility] [facility] 02-06-2023 11:02-0400 Body height 175.3 cm Wilfredo Fischer Work Phone: [facility] 02-06-2023 11:02-0400 Body mass index (BMI) [Ratio] 43.86 kg/m2 Wilfredo Fischer DO Work Phone: [facility] 02-06-2023 11:02-0400 Body temperature 96.91 [degF] Wilfredo Fischer DO Work Phone: [facility] 02-06-2023 11:02-0400 Body weight 134.72 kg Wilfredo Fischer DO Work Phone: [facility] 02-06-2023 11:02-0400 Diastolic blood pressure 88 mm[Hg] Wilfredo Fischer DO Work Phone: [facility] 02-06-2023 11:02-0400 Heart rate 88 /min Wilfredo Fischer DO Work Phone: [facility] 02-06-2023 11:02-0400 SaO2% (BldA) [Mass fraction] 97 % Wilfredo Fischer DO Work Phone: [employer] 02-06-2023 11:02-0400 Systolic blood pressure 134 mm[Hg] Wilfredo Fischer DO Work Phone: [facility] [employer] 08-01-2022 08:40-0500 Body height 175.3 cm Wilfredo Fischer DO Work Phone: [employer] 08-01-2022 08:40-0500 Body mass index (BMI) [Ratio] 44.01 kg/m2 Wilfredo Fischer DO Work Phone: [employer] 08-01-2022 08:40-0500 Body temperature 97.11 [degF] Wilfredo Fischer DO Work Phone: [employer] 08-01-2022 08:40-0500 Body weight 135.17 kg [facility]fredo Fischer [facility] 08-01-2022 08:40-0500 Diastolic blood pressure 82 mm[Hg] Wilfredo Fischer DO Work Phone: [employer] 08-01-2022 08:40-0500 Heart rate 87 /min Wilfredo Fischer DO Work Phone: [employer] 08-01-2022 08:40-0500 SaO2% (BldA) [Mass fraction] 97 % Wilfredo Fischer DO Work Phone: [employer] 08-01-2022 08:40-0500 Systolic blood pressure 119 mm[Hg] Wilfredo Fischer DO Work Phone: [employer] 11-13-2020 14:06-0400 Body temperature 98.01 [degF] [employer] Work Phone: 11-13-2020 14:06-0400 Diastolic blood pressure 78 mm[Hg] [employer] Work Phone: 11-13-2020 14:06-0400 Heart rate 78 /min [employer] Work Phone: 05-18-2021 14:06-0400 Respiratory rate 18 /min [employer] Work Phone: 11-13-2020 14:06-0400 Systolic blood pressure 120 mm[Hg] [employer] Work Phone: 11-13-2020 11:54-0400 SaO2% (BldA) [Mass fraction] 97 % [employer] Work Phone: 11-13-2020 11:41-0400 Body height 175.3 cm [employer] Work Phone: 11-13-2020 11:41-0400 Body mass index (BMI) [Ratio] 31.9 kg/m2 [employer] Work Phone: 11-13-2020 11:41-0400 Body weight 97.98 kg [employer] Work Phone: 08-09-2020 14:12-0500 Body Temperature 98.01 [degF] Niurka Rivas [employer] Work Phone: 08-09-2020 14:12-0500 BP Diastolic 86 mm[Hg] Niurka Rivas [employer] Work Phone: 08-09-2020 14:12-0500 BP Systolic 154 mm[Hg] Niurka Rivas [employer] Work Phone: 08-09-2020 14:12-0500 Pulse (Heart Rate) 66 /min Niurka AMARO Work Phone: 08-09-2020 14:12-0500 Pulse Oximetry 100 % [facility]ka [employer] Work Phone: 08-09-2020 14:12-0500 Respiratory Rate 18 /min Niurka Rob [employer] Work Phone: Encounters Encounter Date Encounter Type Care Provider Facility Start: 03-07-2025 End: 03-07-2025 ambulatory No Primary Care Physician -[facility] Start: 03-07-2025 End: 03-07-[address] Comfort Sol MD -[facility] Work Phone: Start: 03-04-2025 End: 03-04-2025 Emergency department patient visit No Primary Care Physician -Emergency Department Work Phone: Start: 10-05-2024 End: 10-05-2024 Emergency department patient visit Dr. Abhi Cooper DO Work Phone: -Emergency Department Work Phone: Start: 10-05-2024 End: 10-05-2024 ambulatory No Primary Care Physician Facility:[facility] Start: 09-28-2024 End: 09-28-2024 Emergency department patient visit Dr. Abhi Cooper DO Work Phone: -Emergency Department Work Phone: Start: 09-28-2024 End: 09-28-[address] Abhi Cooper DO -Emergency Department Work Phone: Start: 09-28-2024 End: 09-28-2024 ambulatory No Primary Care Physician Facility:[facility] Start: 09-24-2024 End: 09-24-2024 Emergency department patient visit Dr. Abhi Cooper DO Work Phone: -Emergency Department Work Phone: Start: 09-24-2024 End: 09-24-[address] Abhi Cooper DO -Emergency Department Work Phone: Start: 09-24-2024 End: 09-24-2024 ambulatory No Primary Care Physician Facility:[facility] Start: 09-21-2024 End: 09-21-2024 Emergency department patient visit Dr. Abhi Cooper DO Work Phone: -Emergency Department Work Phone: Start: 04-29-2024 End: 04-29-2024 Office outpatient new 30 minutes Shay Izquierdo MD Work Phone: [facility]oped[facility] Comment on above: Tear of left acetabu lar labrum, initial encounter (Primary Dx); Left hip pain; Tendinopathy of gluteus medius Start: 04-29-2024 End: 04-29-2024 Subsequent hospital visit by physician Shay Izquierdo MD Work Phone: [facility] Comment on above: Left hip pain Start: 04-29-2024 End: 04-29-2024 ambulatory SHAY IZQUIERDO [facility] Start: 04-22-2024 End: 04-22-2024 Office outpatient new 45 minutes Jason Castro VP [employer] Work Phone: [facility] Orthopedics and Sports Medicine - [facility] Comment on above: Lumbar pain (Primary Dx); Lumbar radiculopathy; Lumbar spondylosis; Degeneration of intervertebral disc of lumbar region with discogenic back pain and lower extremity pain; Left hip pain Start: 04-22-2024 End: 04-22-2024 ambulatory JASON CASTRO [facility] Start: 04-16-2024 End: 04-16-2024 Emergency department patient visit WILFREDO FISCHER [facility] ED Comment on above: Acute low back pain with sciatica, sciatica laterality unspecified, unspecified back pain laterality (Primary Dx) Start: 06-26-2023 End: 06-26-[address] Wilfredo Fischer Work Phone: [facility] Work Phone: Start: 06-26-2023 End: 06-26-[address] Wilfredo Fischer Work Phone: [facility] Work Phone: Start: 06-23-2023 End: 06-23-[address] Wilfredo Fischer Work Phone: [facility] Neurology Work Phone: Start: 06-04-2023 End: 06-04-[address] Wilfredo Fischer Work Phone: [facility] Neurology Work Phone: Start: 04-20-2023 End: 04-20-[address] Wilfredo Fischer Work Phone: [facility] Neurology Work Phone: Start: 04-08-2023 End: 04-08-[address] Wilfredo Fischer Work Phone: [facility] Neurology Work Phone: Start: 04-08-2023 Refill Wilfredo carrillo DO Work Phone: [facility] Start: 03-27-2023 End: 03-27-[address] Wilfredo Fischer Work Phone: [facility] Work Phone: Start: 03-18-2023 End: 03-18-[address] Wilfredo Fischer Work Phone: [facility] Neurology Work Phone: Start: 03-12-2023 End: 03-12-[address] Wilfredo Fischer Work Phone: [facility] Work Phone: Start: 03-12-2023 End: 03-12-[address] Wilfredo Fischer Work Phone: [facility]-Sleep Lab Work Phone: Start: 03-05-2023 Refill Wilfredo carrillo DO Work Phone: [facility] Start: 02-27-2023 End: 02-27-[address] Wilfredo Fischer Work Phone: [facility], [place] Work Phone: Start: 02-24-2023 End: 02-24-[address] Wilfredo Fischer Work Phone: [facility] Neurology Work Phone: Start: 02-06-2023 End: 02-06-2023 Office outpatient visit 25 minutes Wilfredo Fischer DO Work Phone: [facility] Medicine Comment on above: Essential hypertensi on (Primary Dx); Idiopathic neuropathy Start: 01-15-2023 Orders Only Wilfredo carrillo DO Work Phone: [facility] Comment on above: Anxiety (Primary Dx) Start: 01-01-2023 Telephone encounter Wilfredo Viera Dominick etrilla DO Work Phone: [facility] Comment on above: Referral Extension Start: 01-01-2023 End: 01-01-2023 Subsequent hospital visit by physician Wilfredo Fischer DO Work Phone: [facility] Comment on above: Paresthesia of upper extremity; Abnormal NCS (nerve conduction studies) Start: 12-31-2022 Refill Wilfredo carrillo DO Work Phone: [facility] Start: 10-20-2022 Telephone encounter Wilfredo Maximiliano Dominick etrilla DO Work Phone: [facility] Comment on above: Orders (MRI C Spine) Start: 10-09-2022 Telephone encounter Wilfredo Viera Dominick etrilla DO Work Phone: [facility] Comment on above: Orders (EMG/NCS B/L Upper) Start: 08-03-2022 Telephone encounter Wilfredo Viera Dominick etrilla DO Work Phone: [facility] Start: 08-01-2022 End: 08-01-2022 Office outpatient visit 15 minutes Wilfredo Fischer DO Work Phone: [facility] Comment on above: Lumbar radiculopathy , chronic (Primary Dx); Paresthesia of upper extremity; Class 3 severe obesity due to excess calories with serious comorbidity and body mass index (BMI) of 40.0 to 44.9 in adult (HCC) Start: 07-18-2022 End: 07-18-2022 Subsequent hospital visit by physician Wilfredo Fischer DO Work Phone: [facility] Radiology Comment on above: Tactile hypesthesia; Lumbar radiculopathy; Bilateral hip pain Start: 07-08-2022 Telephone encounter Wilfredo Tan etrilla DO Work Phone: [facility] Comment on above: Missed Call Start: 07-03-2022 Orders Only Wilfredo Viera Kev mancusokali DO Work Phone: [facility] Comment on above: Tactile hypesthesia (Primary Dx); Lumbar radiculopathy Start: 04-17-2022 Transcribe Orders Wilfredo ward DO Work Phone: [facility] Central Scheduling Comment on above: Cough, unspecified ( Primary Dx) Start: 04-13-2022 Transcribe Orders Wilfredo Viear Pet anayala DO Work Phone: [facility] Comment on above: Cough, unspecified ( Primary Dx) Start: 03-21-2022 ambulatory Wilfredo Amado [facility] Start: 03-21-2022 End: 03-21-2022 Subsequent hospital visit by physician Wilfredo Fischer DO Work Phone: [facility] Comment on above: Cough Start: 09-27-2021 ambulatory [facility] Start: 09-27-2021 End: 09-27-2021 Subsequent hospital visit by physician Mignon Morales PA-C Work Phone: [facility] Start: 09-13-2021 End: 09-13-2021 Subsequent hospital visit by physician Mignon Morales PA-C Work Phone: [facility] Start: 09-06-2021 End: 09-06-2021 Subsequent hospital visit by physician Mignon Morales PA-C Work Phone: [facility] Start: 08-28-2021 End: 08-28-2021 Subsequent hospital visit by physician Mignon Morales PA-C Work Phone: [facility] Start: 07-03-2021 End: 07-03-2021 Subsequent hospital visit by physician Mignon Morales PA-C Work Phone: [facility] Start: 06-03-2021 End: 06-03-2021 ambulatory UNKNOWN PROVIDER [facility] Start: 05-17-2021 ambulatory UNKNOWN PROVIDER [facility] Start: 11-13-2020 End: 11-13-2020 Emergency department patient visit [facility] Comment on above: Mouth pain (Primary Dx); Throat pain Start: 10-29-2020 End: 10-29-2020 Subsequent hospital visit by physician Pinky Romero MD Work Phone: [facility] Comment on above: Instability of right shoulder joint Start: 10-05-2020 End: 10-05-2020 Subsequent hospital visit by physician Pinky Romero Work Phone: [facility] Start: 09-21-2020 End: 09-21-2020 Subsequent hospital visit by physician Pinky Romero Work Phone: [facility] Start: 09-10-2020 End: 09-10-2020 Subsequent hospital visit by physician Pinky Romero Work Phone: [facility] Start: 08-09-2020 End: 08-09-2020 Emergency department patient visit Niurka Rivas Work Phone: [facility] Comment on above: Acute pain of right shoulder (Primary Dx) Start: 02-16-2018 End: 02-16-2018 Patient encounter GENA ADORNO [facility] Start: 01-18-2018 End: 01-18-2018 Patient encounter LUIS FERNANDO [facility]OOK [facility] Start: 01-01-2018 RhD negative Niurka Rivas [facility] Work Phone: Start: 12-02-2017 End: 12-02-2017 Patient encounter MIGNON Sandoval [facility] Start: 11-25-2017 End: 11-26-2017 Patient encounter MIGNON GREENE [facility] Start: 11-25-2017 Patient encounter MIGNON HESS [facility] Start: 11-16-2017 Patient encounter JANEY GRANADO [facility] Start: 11-09-2017 Patient encounter MIGNON [facility] Start: 11-04-2017 End: 11-05-2017 Patient encounter SARITHA CROFT [facility] Start: 11-04-2017 Patient encounter MING cooper [facility] Start: 02-26-2017 End: 02-26-2017 Emergency department patient visit TRICE ZAFAR Facility:B Procedures Date Procedure Procedure Detail Performing Clinician Start: 03-27-2023 MRI of brain with contrast Dr. Wilfredo Fischer Work Phone: Start: 08-01-2022 Comprehensive metabo lic panel Wilfredo Fischer DO Work Phone: Start: 03-21-2022 Lipid 1996 panel - S fer or Plasma Wilfredo Fischer DO Work Phone: Start: 10-29-2020 Mri any jt upper extremity w/contrast matrl Pinky Romero MD Work Phone: Start: 10-29-2020 Arthrocentesis aspir &/inj major jt/bursa w/o us Pinky Romero MD Work Phone: Start: 08-09-2020 Radex shoulder compl ete minimum 2 views Niurka Rivas Work Phone: Start: 08-19-2017 Microscopic observat ion [Identifier] in Cervix by Cyto stain Mignon Morales PA-C Work Phone: H/O: section Hx of cesa rean section No Primary Care Physician Comment on above: 2014 & 2017, plan RL TCS H/O: section Hx of cesa rean section Dr. Comfort Sol MD Plan of Treatment Date Care Activity Detail Author Start: 2064 RSV Immunization for Adults (1 - 1-dose 75+ series) RSV Immunization for Adults (1 - 1-dose 75+ series) [facility] Start: 2049 RSV Immunization age d 60 or older (1 - 1-dose 60+ series) RSV Immunization aged 60 or older (1 - 1-dose 60+ series) [facility] Start: 2039 Zoster Vaccines (1 of 2) Zoste r Vaccines (1 of 2) [facility] Start: 01-02-2028 DTaP/Tdap/Td vaccine (2 - Td) DTaP/Tdap/Td vaccine (2 - Td) [facility] Work Phone: Start: 01-02-2028 DTaP/Tdap/Td vaccine (3 - Td or Tdap) DTaP/Tdap/Td vaccine (3 - Td or Tdap) [facility] Start: 01-02-2028 DTaP/Tdap/Td vaccine (3 - Td) DTaP/Tdap/Td vaccine (3 - Td) [facility] Work Phone: Start: 01-02-2028 DTaP/Tdap/Td Vaccine s (3 - Td or Tdap) DTaP/Tdap/Td Vaccines (3 - Td or Tdap) [facility] Start: 03-21-2027 Lipid panel Lipid Panel [facility] Start: 03-04-2025 [facility] Start: 10-05-2024 [facility] Start: 09-28-2024 [facility] Start: 09-24-2024 [facility] Start: 09-21-2024 [facility] Start: 04-29-2024 End: 04-29-2024 Patient encounter procedure 04/29/2024 1:15 PM EDT Office Visit [facility] Paul Zelaya [address] [place] [address] [place] [phone] Shay Izquierdo MD [facility] [place] [address] [facility] Paul Zelaya Start: 04-26-2024 End: 07-27-2024 XR Hip - left 3 Views XR hip left 2 or 3 views Imaging Routine Left hip pain Expected: 04/26/2024, Expires: 07/27/2024 [facility] Work Phone: Comment on above: Expected: 04/26/2024 , Expires: 07/27/2024 Start: 02-28-2024 COVID-19 Vaccine ( season) COVID-19 Vaccine ( season) [facility] Start: 02-28-2024 COVID-19 Vaccine ( season) COVID-19 Vaccine ( season) [facility] Start: 02-28-2024 Influenza vaccination Influenza Vacc ine (#1) [facility] Start: 08-01-2023 Diabetes mellitus screening Diabetes Screening [facility] Start: 03-21-2023 Depression Screen Depression Screen [facility] Start: 03-21-2023 Influenza vaccination Flu vaccine (# 1) [facility] Comment on above: Postponed from 02/27 (Patient Refused) Start: 03-12-2023 Lead Miner stdy unatnd w/mi n hrt rate/o2 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/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, [place] [id number] [facility] Start: 10-20-2022 End: 10-21-2023 MR Cervical spine WO contrast MR cervical spine wo contrast Imaging Routine Lumbar radiculopathy, chronic Expected: 10/20/2022, Expires: 10/21/2023 [facility] Work Phone: Comment on above: Expected: 10/20/2022 , Expires: 10/21/2023 Start: 10-09-2022 End: 10-10-2023 NERVE CONDUCTION TEST WITH [facility] NERVE CONDUCTION TEST WITH [facility] Neurology Routine Paresthesia of upper extremity Expected: 10/09/2022 (Approximate), Expires: [facility]23 [facility]: Comment on above: Expected: 10/09/2022 (Approximate), Expires: 10/10/2023 Start: 08-01-2022 End: 08-01-2023 XR Cervical spine 4 or 5 Views XR cervical spine complete 4 to 5 views Imaging Routine Paresthesia of upper extremity Expected: 08/01/2022, Expires: 08/01/2023 [email or web address] Work Phone: Comment on above: Expected: 08/01/2022 , Expires: 08/01/2023 Start: 07-03-2022 End: 07-03-2023 XR Lumbar spine 4 Views XR lumbar spine complete 4+ views Imaging Routine Tactile hypesthesia Lumbar radiculopathy Expected: 07/03/2022, Expires: 07/03/2023 [email or web address] Work Phone: Comment on above: Expected: 07/03/2022 , Expires: 07/03/2023 Start: 06-25-2022 COVID-19 Vaccine (#1) COVID-19 Vacci ne (#1) [facility] Comment on above: Postponed from 12/30 (Patient Refused) Start: 05-31-2022 Creatinine measurement Creatinine mo nitoring [facility] Start: 05-31-2022 Potassium monitoring Potassium monit oring [facility] Start: 05-02-2022 End: 05-02-2022 Patient encounter procedure 05/02/2022 Office Visit Family Medicine Wilfredo Fischer, [address] [place] [phone] [facility] Start: 02-27-2022 Influenza vaccination Influenza Vacc ine (#1) [facility] Start: 11-20-2021 End: 11-20-2021 Patient encounter procedure 11/20/2021 Office Visit Orthopedic Surgery Nelson Brown MD [address] [facility] [address] [place] [address] [facility] Start: 07-10-2021 End: 07-10-2021 Patient encounter procedure 07/10/2021 Office Visit Orthopedic Surgery Mignon Morales PA-C [address] [facility] [place] [place] [address] [facility] Start: 02-27-2021 Influenza vaccination S [facility] Start: 10-11-2020 End: 10-11-2020 Office Visit 10/11/2020 Office Visit Sports Medicine Pinky Romero MD [address] [facility] [address] [place], [place] [phone] [facility] Start: 08-19-2020 Screening for malign ant neoplasm of cervix [facility] Start: 02-28-2020 Influenza vaccination Flu vaccine (# 1) [facility] Work Phone: Start: 2019 Screening for malign ant neoplasm of cervix [facility] Start: 2010 Screening for malign ant neoplasm of cervix Pap Smear [facility] Start: 2008 Hepatitis B Vaccines (1 of 3 - 19+ 3-dose series) Hepatitis B Vaccines (1 of 3 - 19+ 3-dose series) [facility] Start: 2007 Hepatitis C screening S [facility] Start: 2005 COVID-19 Vaccine (1) COVID-19 Vaccin e (1) [facility] Work Phone: Start: 2002 Varicella vaccination Varicell a Vaccines (1 of 2 - 13+ 2-dose series) [facility] Start: 2001 COVID-19 Vaccine (1) COVID-19 Vaccin e (1) [facility] Work Phone: Start: 2001 Depression Screen Depression Screen [facility] Start: 2001 Depression Screening Depression Scre ening [facility] Start: 1995 Pneumococcal 0-64 ye ars Vaccine (1 - PCV) Pneumococcal 0-64 years Vaccine (1 - PCV) [facility] Start: 1995 Pneumococcal 0-64 ye ars Vaccine (1 of 1 - PPSV23) Pneumococcal 0-64 years Vaccine (1 of 1 - PPSV23) [facility] Work Phone: Start: 1995 Pneumococcal 0-64 ye ars Vaccine (1 of 2 - PPSV23) Pneumococcal 0-64 years Vaccine (1 of 2 - PPSV23) [facility] Start: 1995 Pneumococcal Vaccine : Pediatrics (0 to 5 Years) and At-Risk Patients (6 to 64 Years) (1 - PCV) Pneumococcal Vaccine: Pediatrics (0 to 5 Years) and At-Risk Patients (6 to 64 Years) (1 - PCV) [facility] Start: 1995 Pneumococcal Vaccine : Pediatrics (0 to 5 Years) and At-Risk Patients (6 to 64 Years) (1 of 2 - PCV) Pneumococcal Vaccine: Pediatrics (0 to 5 Years) and At-Risk Patients (6 to 64 Years) (1 of 2 - PCV) [facility] Start: 1994 COVID-19 Vaccine (1) COVID-19 Vaccin e (1) [facility] Start: 1990 MMR Vaccines (1 of 1 - Standard series) MMR Vaccines (1 of 1 - Standard series) [facility] Start: 1990 Varicella vaccination Varicell a Vaccines (1 of 2 - 2-dose childhood series) [facility] Start: 1990 Varicella vaccine (1 of 2 - 2-dose childhood series) Varicella vaccine (1 of 2 - 2-dose childhood series) [facility] Start: 1989 COVID-19 Vaccine (#1) COVID-19 Vacci ne (#1) [facility] Start: 1989 Hepatitis B Vaccines (1 of 3 - 3-dose series) Hepatitis B Vaccines (1 of 3 - 3-dose series) [facility] Start: 1989 Hepatitis C screening Hepatitis C sc reen [facility] Start: 1989 HIV screening HIV Screening [facility] He alth CBC W Auto Different ial panel - Blood [facility] Chlamydia deoxyribon ucleic acid detection [facility] Comprehensive metabo lic 2000 panel - Serum or Plasma [facility] Hemoglobin A1c/Hemoglobin.total in Blood [facility] Hepatitis C antibody measurement [facility] Liquid based cervica l cytology screening [facility] MR Brain WO and W co ntrast IV [facility] End: 01-01-2023 MR Cervical spine WO contrast MR cervical spine wo contrast Imaging Routine Paresthesia of upper extremity Abnormal NCS (nerve conduction studies) Once for 1 Occurrences starting 01/01/2023 until 01/01/2023 [email or web address] Work Phone: Comment on above: Once for 1 Occurrenc es starting 01/01/2023 until 01/01/2023 OUTSIDE PROCEDURE SCAN OUTSIDE P ROCEDURE SCAN Procedures Ordered: 07/18/2022 [email or web address] Comment on above: Ordered: 07/18/2022 Patient Education Bleeding Durin g Early [facility] Work Phone: Patient referral [facility] Work Phone: Polysomnography [facility] Polysomnography [facility] Procedure [facility] Protein/Creatinine [ Ratio] in Urine [facility] Pulmonary function test Pulmonar y function test PFT Routine Cough, Unspecified Ordered: 04/13/2022 [email or web address] Work Phone: Comment on above: Ordered: 04/13/2022 Rubella IgG measurement [facility] Serologic test for syphilis [facility] End: 03-21-2022 XR CHEST (2 VW) [employer] Work Phone: Comment on above: 1 Occurrences starti ng 03/21/2022 until 03/21/2022 End: 04-29-2024 XR Hip - left 3 Views [employer] Comment on above: Once for 1 Occurrenc es starting 04/29/2024 until 04/29/2024 End: 07-18-2022 XR hips bilateral 5+ views [employer] Comment on above: Once for 1 Occurrenc es starting 07/18/2022 until 07/18/2022 End: 07-18-2022 XR Lumbar spine 4 Views [employer] Work Phone: Comment on above: Once for 1 Occurrenc es starting 07/18/2022 until 07/18/2022 End: 10-29-2020 XR SHOULDER ARTHROGRAM RIGHT S&I XR SHOULDER ARTHROGRAM RIGHT S&I Imaging Routine Instability of right shoulder joint 1 Occurrences starting 10/29/2020 until 10/29/2020 [facility] Work Phone: Comment on above: 1 Occurrences starti ng 10/29/2020 until 10/29/2020 [facility] Immunizations Immunization Date Immunization Notes Care Provider Jo deng 10-05-2024 rabies vaccine, for intramuscular injection Dr. Abhi Cooper DO Work Phone: [facility] 09-28-2024 rabies vaccine, for intramuscular injection Dr. Abhi Cooper DO Work Phone: [facility] 09-24-2024 rabies vaccine, for intramuscular injection Dr. Abhi Cooper DO Work Phone: [facility] 09-21-[address] Milvia Cooper DO Work Phone: [facility] 09-21-2024 rabies vaccine, for intramuscular injection Dr. Abhi Cooper DO Work Phone: [facility] 09-21-2024 tetanus toxoid, reduced diphtheria toxoid, and acellular pertussis vaccine, adsorbed Dr. Abhi Cooper DO Work Phone: [facility] 01-01-2018 tetanus toxoid, reduced diphtheria toxoid, and acellular pertussis vaccine, adsorbed Niurka Rivas [facility] Work Phone: 06-18-2015 influenza virus vaccine, unspecified formulation Wilfredo Fischer DO Work Phone: [facility] Work Phone: 06-18-2015 influenza, injectabl e, quadrivalent, contains preservative Wilfredo Fischer DO Work Phone: [facility] 06-18-2015 influenza, injectabl e, quadrivalent, preservative free Dr. Wilfredo Fischer Work Phone: [facility] 06-18-2015 influenza, seasonal, injectable, preservative free Wilfredo Fischer DO Work Phone: [facility] 10-03-2013 tetanus toxoid, reduced diphtheria toxoid, and acellular pertussis vaccine, adsorbed Wilfredo Fischer DO Work Phone: [facility] Work Phone: NEGATED: Highlighted row has not occurred!01-01-2018 measles, mumps and rubella virus vaccine Niurka Rivas [facility] Comment on above: Deferred: - immune Payers Date Payer Category Payer Self-pay [id number] 2024 Unknown [id number] 2018 Medicaid [id number] 2016 Unknown [id number] 1989 Unknown [id number] 2.16. [id number] 1989 Unknown [id number] 2.16. [id number] 1989 Unknown [id number] 2.16. [id number] 1989 Unknown [id number] 2.16. [id number] Unknown Unknown [id number] Unknown [id number] 2.16.8 [id number] Unknown [id number] 2.16.8 [id number] Unknown [id number] 2.16.8 [id number] Unknown [id number] 2.16.8 [id number] Unknown [id number] 2.16.8 [id number] Social History Date Type Detail Facility Start: 09-16-2016 End: 08-09-2020 Tobacco smoking status [facility] Light tobacco smoker [facility] Start: 08-09-2020 End: 03-21-2022 Tobacco use and exposure Never used [employer] Work Phone: Start: 08-09-2020 End: 11-13-2020 Alcohol intake Current non-drinker of alcohol (finding) [employer] Work Phone: Start: 12-05-2017 End: 03-21-2022 Tobacco Comment only smokes when she has a drink [employer] Work Phone: Start: 1990 Sex Assigned At Not on file [facility] [employer] Work Phone: Start: 06-10-2021 End: 02-06-2023 Exposure to SARS-CoV-2 (event) Not sure [employer] Work Phone: Start: 06-12-2021 End: 07-06-2022 Alcohol intake Current drinker of alcohol (finding) [employer] Work Phone: Start: 06-03-2021 History SDOH Alcohol Comment occ [employer] Work Phone: Start: 03-21-2022 End: 09-21-2024 Tobacco smoking status [facility] Occasional tobacco smoker [employer] Work Phone: History of tobacco use Cigarette Smoker S [facility] Work Phone: Start: 03-21-2022 End: 07-06-2022 Cigarettes smoked current (pack per day) - Reported 0.5 [employer] Work Phone: Start: 03-21-2022 History SDOH Alcohol Frequency 3 [employer] Work Phone: Start: 03-21-2022 History SDOH Alcohol Std Drinks 2 [employer] Work Phone: Start: 03-21-2022 History SDOH Social Connections Phone 5 [employer] Work Phone: Start: 03-21-2022 History SDOH Social Connections Mosque 1 [facility] Work Phone: Start: 03-21-2022 History SDOH Social Connections Living 8 [facility] Work Phone: Start: 03-21-2022 History SDOH Physica l Activity DPW 0 [facility] Work Phone: Start: 12-31-2022 End: 03-19-2023 Tobacco use panel [facility] Start: 04-17-2022 Gender identity Identifies as female gender (finding) [facility] Start: 02-24-2023 End: 06-23-2023 Tobacco smoking status [facility] Unknown if ever smoked [facility] Start: 1990 Sex Assigned At Female [facility] Start: 01-27-2022 End: 10-05-2024 Sex Female (finding) [facility] Start: 03-04-2025 End: 03-07-2025 Tobacco smoking status NHIS Ex-smoker (finding) [facility] Clinical Notes 04-05-2021 to 03-07-2025 Note Date & Type Note Facility 03-07-2025 Progress note [facility] 03-07-2025 Progress note Note Date/Time March 07, 2025 4:34pm [facility] Women[facility] [address], [address] [place] [address] OFFICE VISIT Date of Service: 03/07/25 MR#: [id number] Acct: [id number] Name: CHERYL WOOD Omid Rep #: [id number] : 1990 Provider: Dr. Ketan Sol MD Age/Sex: 34/F Location: [facility] Status: Signed Intake Vital Signs 03/04/25 16:28 03/07/25 15:56 03/07/25 16:01 Height 5 ft 9 in 5 ft 9 in 5 ft 9 in Weight: 296 lb 1 oz BMI 43.7 BP 136/88 H Intake Visit Reasons: NOB LMP 7/3 LEIDY 4/9 *Per Converting Operator Required: No Is patient in pain?: No Feel stressed/tense/nervous/anxious/difficulty sleeping: not at all Allergies minocycline Adverse Reaction (Severe, Verified 03/07/25 15:56) Hives Medications ?Medication ?Instructions ?Recorded ?Confirmed ?Type albuterol sulfate 90 mcg/actuation 2 puff inhalation Q 6H PRN 02/24/23 03/07/25 History aerosol inhaler mometasone-formoterol HFA 200 2 puff inhalation BID 03/07/25 History mcg-5 mcg/actuation aerosol inhaler (Dulera) choline 110 mg PO QDAY 03/07/2503/23 History multivitamin no.47-iron fum 27 cap PO 03/07/25 5 History mg-folate no.1 1 mg-dha 300 mg capsule (PNV-DHA) Last Menstrual Period: 12/29/24 Zika: Zika virus screening: Negative [facility] Medical History (Updated 03/07/25 @ 16:[address] Comfort Sol MD) Polyneuropathy Hidradenitis suppurativa Asthma Headache Obesity Vertigo Peripheral vestibulopathy Fatigue delivery delivered Surgical History (Updated 03/07/25 @ 16:[address] Comfort Sol MD) History of third molar tooth extraction Hx of section Status post labral repair of shoulder Family History Maternal Grandfather Diabetes Heart disease Pancreatic cancer, Onset Age: 70 mets to eye Father Heart disease COPD (chronic obstructive pulmonary disease) Emphysema lung Hypertension Mother Heart disease cardiomegaly-mild COPD (chronic obstructive pulmonary disease) Thyroid disorder hypothyroid Hypertension Cancer, Onset Age: 45 skin cancer Grandmother Emphysema lung paternal Maternal Grandmother Multiple sclerosis Cancer, Onset Age: 65 lung cancer Uncle Cancer, Onset Age: 60 Maternal- Lung cancer COPD (chronic obstructive pulmonary disease) Maternal Grandfather Cancer Prostate cancer Social History adopted: No household members: significant other, children and other details: custody of nephew 13yo housing: house number of children: 2 service: No current occupational status: employed current occupation: [employer] current occupational exposures/hazards: No pets and animals: Yes (4 dogs, 2 Cats Avoid litterbox) pets and animals: cat(s)and dog(s) history of recent travel: No sexually active: Yes Smoking Status: Former smoker Tobacco: How many years used: 15 smoking status stop date: 12/27/24 quit status: quit date established alcohol intake: current alcohol intake frequency: a few times a month details: not while substance use type: does not use well-balanced diet: about half the time caffeine: Yes Type: coffee Number of servings: 1 eating out: 1-3 times/week during the past year weight has: remained stable what type of physical activity do you participate in: none tamir/jain: None seatbelt use: always do you feel safe at home: Yes additional social history: [employer] work History 3 Elective abortions Hx Para 2 Spontaneous abortions Hx # Term Pregnancies Ectopic pregnancies Hx # Pregnancies Multiple births # of living children 2 Past Pregnancies Del. Date Name GA/Weeks Outcome Route Bth Weight Infant Gen Labor Lgth Anesthesia Del Locatn Provider FOB 06/15/15 Ellie 40 live - full term 8#9oz Female epidural [facility] Titi 12/30/17 Nadine 27 live - 2#1oz Female general [facility] Delivery Date: 06/15/15 Last Updated by: Haley Vazquez IOL, stuck, CS Delivery Date: 12/30/17 Last Updated by: Haley Vazquez previa, cord prolapse, emergency c section HPI NOB LMP 12/29 LEIDY 10/05 *Per Details: CHERYL WOOD is a 34 year old who presents for New OB visit. OB Visit LEIDY Calculator Estimated Delivery Date Method Current WG Current Estimate 10/05/25 LMP (Certain) 9w 5d Comments: HIV: Urine Culture: Sequential Screen: NIPT Screen: Estimated Due Date: 10/05/25 Expected Delivery Route/Plan RLTCS Specific Issue/Plans Covid status: [] Flu vaccine: [] Tdap vaccine: [] Rhogam: [] LARC form signed: [] Problem list reviewed and updated with the most current plan of care details and appropriate orders placed. Relevant counseling for the gestational age provided. Continue routine care and follow up unless otherwise noted in visit notes/problem list details Initial Weight: Not Recorded Date -?-?-?-?-?-?-?-?-?-?-?-?- EGA Weight BP Urine Prot -?-?-?-?-?-?--?-?-?-?-?-?- Glucose FHR FuHt Pres Dilation -?-?-?-?-?-?-?-?-?-?-?-?- Effaced St Visit Note 03/07/25 -?-?-?-?-?-?-?-?-?-?-?-?- 9w 5d 296 lb 1 oz 136/88 -?-?-?-?-?-?-?-?-?-?-?-?- 160 -?-?-?-?-?-?-?-?-?-?-?-?- SM- CRL 2.7 cm c ons with LMP small possible hematoma 6 mm at cervx Menstrual History Last Menstrual Period: 12/29/24 Reported LMP: definite Normal amount/duration: Yes Frequency in days: 30-31 On hormonal BC at conception: No hCG+: 01/24/25 Antepartum Record Genetic Screening: Congenital Heart Defect: Other, Neural Tube Defect: Other, Hemoglobinopathy Or Carrier: Other, Cystic Fibrosis: Other, Chromosome Abnormality: Other, Hector-Sachs: Other, Hemophilia: Other, Intellectual Disability/Autism: Other, Recurrent Loss/Stillbirth: Other, Other Structural Defect: Other, Other Genetic Disease: Other and Maternal Metabolic Disorder: Other Infection History: Live with someone with TB or Exposed to TB: No, Patient or Partner has history of Genital Herpes: No, Rash or Viral illness since last mentrual period: No, Prior GBS-Infected child: No, History of STD: No, HIV Infection: No, History of Hepatitis: No, Recent travel outside of [place]: No, Concern for hepatitis exposure: No, Varicella immune: Yes (immune-virus) and Covid Vaccinated: No Medical History Medical History: Positive: Hypertension (labile HTN-home testing 138/90's ), Auto-immune disorder (hidronitis suprateva, fibromyalgia), Neurologic/epilepsy (increased intracranial pressure), Psychiatric (anxiety), D (Rh) Sensitized (A-), Pulmonary (e.g.,TB,Asthma) (environmental adult onset asthma), Drug/latex allergies/reactions (minocycline), 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), Operations/hospitalizations (right shoulder, molar extraction), Relevant family history (See PFSH) and Other (obesity) and Negative: Diabetes, Heart disease, Kidney disease/UTI, Depression/ depression, Hepatitis/liver disease, Varicosities/phlebitis, Thyroid dysfunction, Trauma/domestic violence, History of blood transfusions, Seasonal allergies, Breast, Anesthetic complications, History of abnormal pap (DUE), Uterine anomaly/kenji, Infertility and Anti-retroviral treatment ACOG First Trimester First Trimester: Desire for , Alcohol, Tobacco Cessation, Illicit/Recreational Drug/Substance Use, Intimate Partner Violence, Barriers to care, Unstable Housing, Communication Barriers, Environmental/Work Hazards, Anticipated Course of Care, Nurtrition and weight gain, Toxoplasmosis Precations, Use of Any medications, Sexual activity, Exercise, Dental Care, Sauna/Hot tub use, Seat Belt use, Childbirth classes/Hospital facilities, Travel, Indications for Ultrasound and Screening for Aneuploidy ROS Const Reports system reviewed and no additional complaints, except as documented, Reports fatigue and Denies fever(s) Eyes Reports system reviewed and no additional complaints, except as documented ENT Reports system reviewed and no additional complaints, except as documented Card Denies chest pain and Denies dyspnea Resp Reports system reviewed and no additional complaints, except as documented, Denies cough and Denies dyspnea GI Denies abdominal pain and Reports nausea Reports system reviewed and no additional complaints, except as documented Musc Reports system reviewed and no additional complaints, except as documented Skin/Breast Reports system reviewed and no additional complaints, except as documented Neuro Yes system reviewed and no additional complaints, except as documented Psych Reports system reviewed and no additional complaints, except as documented Endo Reports system reviewed and no additional complaints, except as documented and Reports fatigue Exam Const General: healthy appearing, comfortable and no acute distress Orientation: alert [facility] Head: normal to inspection, normocephalic and atraumatic Ears: hearing grossly normal bilaterally and external ears normal Nose: external nose normal and nares normal Mouth: oral mucosae normal Teeth and gingiva: dentition normal Eyes General: appearance normal, both eyes and all related structures Neck Neck: normal visual inspection, no lymphadenopathy and supple Thyroid: thyroid normal Chest Chest palpation & inspection: normal inspection of the chest Breast inspection: normal inspection of the breasts and normal inspection of the axillae Breast palpation: normal palpation of the breasts and normal palpation of the axillae Resp Effort & Inspection: normal respiratory effort GI Inspection: normal to inspection Palpation: soft and no hepatosplenomegaly General: bladder normal to palpation External Female Exam: normal external appearance and normal appearance of the urethra Urethra: normal appearance of the urethra Speculum Exam - Vagina: normal appearance of the vagina and normal vaginal discharge Speculum Exam - Cervix: normal appearance of the cervix Bimanual Exam- Vagina & Uterus: normal bimanual exam, bladder normal to palpation, non-tender and other Bimanual Exam- Adnexa, other: non-tender Skin General: no rashes or lesions noted Neuro Motor: muscle tone normal throughout and no movement abnormalities noted Extrem General: normal to inspection and full ROM Supplemental Info ACOG book given and patient encouraged to read about nutrition, exercise, weight gain, and food avoidance in . Coding Level of Care Code OB Routine Diagnoses Advanced maternal age (AMA) in Supervision of high-risk O09.90 9 weeks gestation of Z3A.09 Weeks of gestation: 9 weeks Rh negative status during O26.899; Z67.91 Subchorionic hematoma O41.8X90; O46.8X9 Anxiety F41.9 Hx of delivery, currently O09.899 Hx of section Z98.891 Current in first trimester with history of placenta previa during prior O09.291 Obesity affecting O99.210 Hidradenitis suppurativa L73.2 Benign intracranial hypertension G93.2 Assessment and Plan Assessment and Plan (1) Advanced maternal age (AMA) in : Status: Acute Comment: nipt planned (2) Supervision of high-risk : Status: Acute Comment: , LEIDY 10/05/25, Nadine Sanchez( custody of 13yo nephew) THOMAS Walls (3) : Status: Acute Qualifiers: Weeks of gestation: 9 weeks Qualified Code(s): Z3A.09 - 9 weeks gestation of Comment: elects NIPT with gender-carrier undecided (4) Rh negative status during : Status: Acute Comment: rhogam @ 28 wks (5) Subchorionic hematoma: Status: Acute Comment: per care center (6) Anxiety: Status: Acute (7) Hx of delivery, currently : Status: Acute Comment: delivered 27w4d last , SROM 19 wks, month in ACH before cord prolapse/emergency CS (8) Hx of section: Status: Acute Comment: 2014 & 2017, plan RLTCS (9) Current in first trimester with history of placenta previa during prior : Status: Acute (10) Obesity affecting : Status: Acute Comment: HgbA1c (11) Hidradenitis suppurativa: Status: Inactive (12) Benign intracranial hypertension: Status: Acute Comment: acetazolamide in the past. mfm consult. been over a year since she saw a neurologist Orders: Orders CBC W/Diff, Automated Today O09.90 - Supervision of high risk , unspecified, unspecified trimester Type & Screen Today O09.90 - Supervision of high risk , unspecified, unspecified trimester Rubella IgG Today O09.90 - Supervision of high risk , unspecified, unspecified trimester Hepatitis C Antibody Today O09.90 - Supervision of high risk , unspecified, unspecified trimester Hepatitis B Surface Antigen Today O09.90 - Supervision of high risk , unspecified, unspecified trimester Culture, Urine Today O09.90 - Supervision of high risk , unspecified, unspecified trimester Syphilis Antibodies Today O09.90 - Supervision of high risk , unspecified, unspecified trimester Chlamydia/GC PHUONG aptima Today O09.90 - Supervision of high risk , unspecified, unspecified trimester HIV Today O09.90 - Supervision of high risk , unspecified, unspecified trimester Hemoglobin A1c Today O09.90 - Supervision of high risk , unspecified, unspecified trimester, O99.210 - Obesity complicating , unspecified trimester Comprehensive Metabolic Profil Today O09.90 - Supervision of high risk , unspecified, unspecified trimester, R09.89 - Other specified symptoms and signs involving the circulatory and respiratory systems Protein+Creatinine Ratio,Urine Today O09.90 - Supervision of high risk , unspecified, unspecified trimester, R09.89 - Other specified symptoms and signs involving the circulatory and respiratory systems PAP IG HPV APTIMA 16/18,45 Today O09.90 - Supervision of high risk , unspecified, unspecified trimester, Z12.4 - Encounter for screening for malignant neoplasm of cervix JAVID Today O09.90 - Supervision of high risk , unspecified, unspecified trimester 03/07/25 6907 <Electronically signed by Comfort francisco MD> Date _ Comfort Howard Signature: Date (if applicable) CC: ~ [facility] Work Phone: [phone]) 129-968709-06-2025 Discharge summary [facility] Medical Records Department [address] [place] [address] Emergency Department Summary 03/04/25 MR#: [id number] Acct: [id number] Name: CHERYL WOOD Rep #:[id number] : 1990 34 From: Tremayne magallanes DO PCP: Care Physician,No Primary Status :REG ER Location: ED HPI HPI - Female History of Present Illness Chief Complaint: Narrative Narrative: Chief complaint and HPI: 34-year-old female who is G3, P2 and 8.5 weeks presents for RhoGAMevaluation. Patient states her previous pregnancies were . Last she followed with maternal- medicine given she had placenta previa with abruption and premature delivery. She states she has yet to follow-up with an SENIOR SCIENTIST. States she called on Thursday to be established with [facility]. Patient states that she has had a ultrasound at the [facility] which showed a subchorionic hematoma. She states on she had intercourse in which she had some light vaginalbleeding which has since resolved. She followed up with the care center who told her it was likely secondary to the subchorionic hematoma and to be established with an SENIOR SCIENTIST. Patient states she was thinking about it today and realize she has Rh- and presented for possible RhoGAM injection. She denies any fever, chills, shortness of breath, chest pain abdominal pain, nausea, vomiting. Denies any vaginal bleeding currently. Denies any pelvic cramping. Denies any dysuria or UTI symptoms. Review of systems: See HPI Medications: As listed on the chart Allergies: As listed on the chart PFSH: Per chart Vital signs: As listed on the chart. Reviewed. Physical exam: Gen: A&O x3, NAD Head: Normocephalic, atraumatic Eyes: No sclera icterus, conjunctiva clear ENT: Moist mucous membranes Neck: Trachea midline, No JVD CV: RRR, no murmurs, no peripheral edema Resp: Lungs CTA BL, no w/r/c GI: Abd soft, non-distended, non-tender, no r/r/g Musc: Full ROM, no deformity Skin: Warm, dry Neuro: Alert, oriented, grossly intact, sensation intact Psych: Cooperative, appropriate mood and affect [facility] Medical History Fatigue delivery delivered [...] mg PO BID #60 tabs Unknown Rx amoxicillin 875 mg-potassium 1 tab PO Q12H 7 days #14 tabs 09/21/24 Unknown Rx clavulanate 125 mg tablet Allergy/AdvReac Type Severity Reaction Status Date / Time minocycline AdvReac Severe Hives Verified 03/04/25 16:27 Surgical History Status post labral repair of shoulder Social History Smoking Status: Former smoker EXAM Physical Exam Const Vital Signs: 03/04/25 16:28 Temperature 97.8 F Temperature Source Temporal Pulse Rate 84 Respiratory Rate 16 Blood Pressure 139/83 H Blood Pressure Mean 101 Pulse Ox 100 Oxygen Delivery Method Room Air MDM MDM MDM Narrative Medical decision making narrative: 34-year-old female who is G3, P2 and 8.5 weeks presents for RhoGAM evaluation. Patient states her previous pregnancies were . Last she followed with maternal- medicine given she had placenta previa with abruption and premature delivery. She states she has yet to follow- up with an SENIOR SCIENTIST. States she called on Thursday to be established with [facility]. Patient states that she has had a ultrasound at the carecenter which showed a subchorionic hematoma. She states on she had intercourse in which she had some light vaginal bleeding which has since resolved. She followed up with the care center who told her it was likely secondary to the subchorionic hematoma and to be established with an SENIOR SCIENTIST. Patient states she was thinking aboutit today and realize she has Rh- and presented for possible RhoGAM injection. She currently denies any symptoms such as vaginal bleeding or pelvic pain. On presentation, patient no acute distress. Vital stable other than mild hypertension. At this point in time I do not think any laboratory workup or imaging is needed at this time given patient is asymptomatic. Per the current guidelines from the[facility] College ofobstetricians and commercial lines assistant there is no longer recommended routine Rh testingand RhoGAM administration for our negative patients at less than 12 weeks gestation following an or loss. Our guidelines here at [facility] is 14 weeks. However given patient is Rh- and has had complications with previous pregnancies, I will reach out with [facility] SENIOR SCIENTIST. I spoke with the nurse practitioner that is on-call. She will reach out to Dr. Kevin Blackwell. Nursepractitioner reconsulted me after discussing with Dr. Kevin Blackwell. No RhoGAM injection needed at this time given that patient is less than 14 weeks. She is to follow-up in their office. Patient updated of all the results and the plan. She confirmed understanding. Return precautions explained. Patient stable to discharge home. Impression: 1. First trimester 2. Vaginal bleeding, resolved 3. History of subchorionic hemorrhage 3. Rh- blood type Discharge Plan Triage Chief Complaint: ED Provider: Tremayne Brice Dx/Rx/DC Orders Prescriptions: No Action albuterol sulfate 90 mcg/actuation [...] 250 mg PO Q6H Qty: 28 0RF amoxicillin-pot clavulanate 875-125 mg tablet 1 tab PO Q12H 7 Days Qty: 14 0RF acetazolamide 250 mg tablet 250 mg PO BID Qty: 60 1RF Primary Care Provider: Care Physician,No Primary Referrals: Care Physician,No Primary [Primary Care Provider] - Print Language: Turkish What to do if you have Problems For any increased pain, shortness of breath, bleeding, nausea or vomiting, chestpain, or any unexpected problems, contact your Primary Care Provider. Call [facility] ([phone]) or report tothe closest Emergency Room. Call 911 if necessary. 03/04/25 1807 Cosigner Signature (if applicable): CC: No Primary Care Physician ~ Signed [facility]09-06-2025 Discharge summary Author Tremayne Brice [facility] Note Date/Time March 04, 2025 6:07pm [facility] Medical Records Department [address] [place] [address] Emergency Department Summary 03/04/25 MR#: [id number] Acct: [id number] Name: CHERYL WOOD Rep #:[id number] : 1990 34 From: Tremayne magallanes DO PCP: Care Physician,No Primary Status :REG ER Location: ED HPI HPI - Female History of Present Illness Chief Complaint: Narrative Narrative: Chief complaint and HPI: 34-year-old female who is G3, P2 and 8.5 weeks presents for RhoGAM evaluation. Patient states her previous pregnancies were . Last she followed with maternal- medicine given she had placenta previa with abruption and premature delivery. She states she has yet to follow-up with an SENIOR SCIENTIST. States she called on Thursday to be established with [facility]. Patient states that she has had a ultrasound at [facility] which showed a subchorionic hematoma. She states on she had intercourse in which she had some light vaginal bleeding which has since resolved. She followed up with the care center who told her it was likely secondary to the subchorionic hematoma and to be established with an SENIOR SCIENTIST. Patient states she was thinking about it today and realize she has Rh- and presented for possible RhoGAM injection. She denies any fever, chills, shortness of breath, chest pain abdominal pain, nausea, vomiting. Denies any vaginal bleeding currently. Denies any pelvic cramping. Denies any dysuria or UTI symptoms. Review of systems: See HPI Medications: As listed on the chart Allergies: As listed on the chart PFSH: Per chart Vital signs: As listed on the chart. Reviewed. Physical exam: Gen: A&O x3, NAD Head: Normocephalic, atraumatic Eyes: No sclera icterus, conjunctiva clear ENT: Moist mucous membranes Neck: Trachea midline, No JVD CV: RRR, no murmurs, no peripheral edema Resp: Lungs CTA BL, no w/r/c GI: Abd soft, non-distended, non-tender, no r/r/g Musc: Full ROM, no deformity Skin: Warm, dry Neuro: Alert, oriented, grossly intact, sensation intact Psych: Cooperative, appropriate mood and [facility] Fatigue delivery delivered Home [...] mg PO BID #60 tabs Unknown Rx amoxicillin 875 mg-potassium 1 tab PO Q12H 7 days #14 tabs 09/21/24 Unknown Rx clavulanate 125 mg tablet Allergy/AdvReac Type Severity Reaction Status Date / Time minocycline AdvReac Severe Hives Verified 03/04/25 16:27 Surgical History Status post labral repair of shoulder Social History Smoking Status: Former smoker EXAM Physical Exam Const Vital Signs: 03/04/25 16:28 Temperature 97.8 F Temperature Source Temporal Pulse Rate 84 Respiratory Rate 16 Blood Pressure 139/83 H Blood Pressure Mean 101 Pulse Ox 100 Oxygen Delivery Method Room Air MDM MDM MDM Narrative Medical decision making narrative: 34-year-old female who is G3, P2 and 8.5 weeks presents for RhoGAM evaluation. Patient states her previous pregnancies were . Last she followed with maternal- medicine given she had placenta previa with abruption and premature delivery. She states she has yet to follow-up with an SENIOR SCIENTIST. States she called on Thursday to be established with [facility]. Patient states that she has had a ultrasound at the carecenter which showed a subchorionic hematoma. She states on she had intercourse in which she had some light vaginal bleeding which has since resolved. She followed up with the care center who told her it was likely secondary to the subchorionic hematoma and to be established with an SENIOR SCIENTIST. Patient states she was thinking about it today and realize she has Rh- and presented for possible RhoGAM injection. She currently denies any symptoms such as vaginal bleeding or pelvic pain. On presentation, patient no acute distress. Vital stable other than mild hypertension. At this point in time I do not think any laboratory workup or imaging is needed at this time given patient is asymptomatic. Per the current guidelines from the [employer] and commercial lines assistant there is no longer recommended routine Rh testingand RhoGAM administration for our negative patients at less than 12 weeks gestation following an or loss. Our guidelines here at [facility] is 14 weeks. However given patient is Rh- and has had complications with previous pregnancies, I will reach out with [facility] SENIOR SCIENTIST. I spoke with the nurse practitioner that is on-call. She will reach out to Dr. Kevin Blackwell. Nurse practitioner reconsulted me after discussing with Dr. Kevin Blackwell. No RhoGAM injection needed at this time given that patient is less than 14 weeks. She is to follow-up in their office. Patient updated of all the results and the plan. She confirmed understanding. Return precautions explained. Patient stable to discharge home. Impression: 1. First trimester 2. Vaginal bleeding, resolved 3. History of subchorionic hemorrhage 3. Rh- blood type Discharge Plan Triage Chief Complaint: ED Provider: Tremayne Brice Dx/Rx/DC Orders Prescriptions: No Action albuterol sulfate 90 mcg/actuation [...] 250 mg PO Q6H Qty: 28 0RF amoxicillin-pot clavulanate 875-125 mg tablet 1 tab PO Q12H 7 Days Qty: 14 0RF acetazolamide 250 mg tablet 250 mg PO BID Qty: 60 1RF Primary Care Provider: Care Physician,No Primary Referrals: Care Physician,No Primary [Primary Care Provider] - Print Language: Turkish What to do if you have Problems For any increased pain, shortness of breath, bleeding, nausea or vomiting, chestpain, or any unexpected problems, contact your Primary Care Provider. Call [facility] ([phone]) or report to the closest Emergency Room. Call 911 if necessary. 03/04/25 8344 <Electronically signed by Tremayne Brice DO> Cosigner Signature (if applicable): CC: No Primary Care Physician ~ Signed [facility] Work Phone: [phone] Discharge summary [facility] Medical Records Department [address] [place] [address] Emergency Department Summary 09/21/24 MR#: [id number] Acct: [id number] Name: CHERYL WOOD Rep #:[id number] : [...] unsure if they will get the rabies testingor not and is requesting the rabies vaccine here in the emergency department. Patient states that she does not know when her last tetanus shot was. [facility] Medical History Fatigue delivery delivered [...] and lower extremities, radial pulse +2/4 in thebilateral extremities Neurological: Patient follow commands that she was at [facility] year is 2024. Sensation grossly intact [...] emerged part with a concernfor being bitten bya cat and wanting the rabies vaccine series. This will be ordered. Patient's tetanus shot will be updated. I ordered an x-ray of her hand and she is refusing this I advised her that there is a chancewe are missing a retained foreign body in [...] Primary [Primary Care Provider] - Ebony Blood, RECRUITING INTERN-C [[facility]] - Activity Restrictions/Additional Instructions: Follow schedule that you are given for the rabies vaccine series. Take antibiotics as prescribed ifyou develop surrounding redness or purulent drainage while on antibiotics you need to return to theemergency department. Follow-up your primary care physician or if you not having you referred to 1.Return with any other concerns. Your tetanus shot was updated today. Print Language: Turkish Disposition Disposition: Home, Self Care What to do if you have Problems For any increased pain, shortness of breath, bleeding, nausea or vomiting, chestpain, or any unexpected problems, contact your Primary Care Provider. Call [facility] ([phone]) or report tothe closest Emergency Room. Call 911 if necessary. 09/21/242147 Cosigner Signature (if applicable): CC: No Primary Care Physician ~ Signed [facility]03-26-2025 Discharge summary Author Abhi Cooper [facility] Note Date/Time September 21, 2024 9:4 8pm [facility] Medical Records Department [address] [place] [address] Emergency Department Summary 09/21/24 MR#: [id number] Acct: [id number] Name: CHERYL WOOD Rep #:[id number] : [...] know when her last tetanus shot was. [facility] Medical History Fatigue delivery delivered [...] Patient follow commands that she was at [facility] year is 2024. Sensation grossly intact [...] to the emergency department. She wasadvised to follow- up with corporate care. She is encouraged to [...] Primary [Primary Care Provider] - Ebony Blood, RECRUITING INTERN-C [[facility]] - Activity Restrictions/Additional Instructions: Follow schedule [...] tetanus shot was updated today. Print Language: Turkish Disposition Disposition: Home, Self Care What to do if you have Problems For any increased pain, shortness of breath, bleeding, nausea or vomiting, chestpain, or any unexpected problems, contact your Primary Care Provider. Call [facility] ([phone]) or report to the closest Emergency Room. Call 911 if necessary. 09/21/242147 <Electronically signed by Abhi Cooper DO> Cosigner Signature (if applicable): CC: No Primary Care Physician ~ Signed [facility] Work Phone: [phone] 275-176911-01-2024 History of Present illness Narrative* Shay Izquierdo MD - 04/29/2024 1:15 PM EDT Images from the original note were not included. 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 documented in this [facility]11-01-2024 Instructions* Patient Instructions* Shay Izquierdo MD [...] her core strength increases. documented in this [facility]10-25-2024 History of Present illness Narrative* Jason Castro APRN - CHEESE PROCESSOR - 04/22/2024 1:00 PM EDT Images from the original note were not included. [facility] - [address] [facility] [address] Dept: [phone] Dept Cheryl Wood 1990 [id number] 04/22/2024 Problem List: Lumbar pain Lumbar radiculopathy, left Lumbar spondylosis Lumbar degenerative disc disease Left hip pain (M54.50) Lumbar pain (M54.16) Lumbar radiculopathy (M47.816) Lumbar spondylosis (M51.362) Degeneration of intervertebral disc of lumbar region with discogenic back pain and lower extremity pain (M25.552) Left hip pain Chief Complaint Patient presents with Back Pain RECRUITING INTERN Lumbar Pain HPI: Cheryl is a 33 [...] week, when she went to open a [employer] basement door, and was stuck. 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 Overall Financial Resource Strain ([facility]) Difficulty of Paying Living Expenses: Not hard at all Food Insecurity: No Food Insecurity (03/21/2022) Received from [facility] Hunger Vital Sign Worried About Running Out of Food in the Last Year: Never true Ran Out of Food in the Last Year: Never true Transportation Needs: No Transportation Needs (03/21/2022) Received from [facility] PRAPARE - Transportation Lack of Transportation (Medical): No Lack of Transportation (Non-Medical): No Physical Activity: Inactive (03/21/2022) Received from [facility] Exercise Vital Sign Days of Exercise per Week: 0 days Minutes of Exercise per Session: 0 min Stress: No Stress Concern Present (03/21/2022) Received from [facility] [employer] - Occupational Stress Questionnaire Feeling of Stress : Only a little Social Connections: Moderately Isolated (03/21/2022) Received from [facility] Social Connection and Isolation Panel [NHANES] Frequency of Communication with Friends and Family: More than three times a week Frequency of Social Gatherings with Friends and Family: Once a week Attends Adventism Services: Never Active Member of Clubs or Organizations: No Attends Club or Organization Meetings: Never Marital Status: Living with partner Intimate Partner Violence: Not At Risk (03/21/2022) Received from [facility] Humiliation, Afraid, Rape, and Kick questionnaire Fear of Current or Ex-Partner: No Emotionally Abused: No Physically Abused: No Sexually Abused: No Housing Stability: Not on file Family History Problem Relation Name Age of Onset No Known Problems Mother Gael More (HEEL SEAT POUNDER at [employer]) Heart disease Father Sae COPD [...] neurogenic claudication. I had a discussion with Cheryl Anne Israel about her symptoms. We independently reviewed her [...] The conservative management includes medications, injections, exercise, vehicle care specialist, acupuncture, massage therapy, and phys ical therapy. [...] of PT if no improvement with Jason Castro VP SOFTWARE SUPPORT-CHEESE PROCESSOR The risks and appropriate dosing of muscle [...] CNP 04/22/2024 at 1:45 PM Dictated using TapnScrap Version 2.4 Proof read however unrecognized voice recognition errors may have occurred documented in this [facility]10-25-2024 Instructions* Patient Instructions* Mignon Szymanski ATC - 04/22/2024 1:00 PM EDT Images from the original note were not included. [facility] Therapy at [address] [place] [address] Call central scheduling to schedule new patient appointment [phone] documented in this [facility]10-19-2024 Emergency department Note* Laura Mack RN - 04/16/2024 6:09 PM EDT Clarified with Gissel LUNDBERG that 60mg toradol to be given and dosage was verified Laura Mack RN 04/16/241809 [id number] Emergency department Note* Laura Mack RN - 04/16/2024 6:09 PM EDT Clarified with Gissel LUNDBERG that 60mg toradol to be given and dosage was verified Laura Mack RN 04/16/24 1810 * Gissel Hernandez PA-C - 04/16/2024 5:33 PM EDT [facility] ED eMERGENCY dEPARTMENT eNCOUnter Pt Name: Cheryl [...] retention. No saddle paresthesias. She tried some dwue-scq-hyjclio medications with no relief of her symptoms. 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 Overall Financial Resource Strain ([facility]) Difficulty of Paying Living Expenses: Not hard at all Food Insecurity: No Food Insecurity (03/21/2022) Received from [facility] Hunger Vital Sign Worried About Running Out of Food in the Last Year: Never true Ran Out of Food in the Last Year: Never true Transportation Needs: No Transportation Needs (03/21/2022) Received from [facility] PRAPARE - Transportation Lack of Transportation (Medical): No Lack of Transportation (Non-Medical): No Physical Activity: Inactive (03/21/2022) Received from [facility] Exercise Vital Sign Days of Exercise per Week: 0 days Minutes of Exercise per Session: 0 min Stress: No Stress Concern Present (03/21/2022) Received from [facility] [employer] - Occupational Stress Questionnaire Feeling of Stress : Only a little Social Connections: Moderately Isolated (03/21/2022) Received from [facility] Social Connection and Isolation Panel [NHANES] Frequency of Communication with Friends and Family: More than three times a week Frequency of Social Gatherings with Friends and Family: Once a week Attends Adventism Services: Never Active Member of Clubs or Organizations: No Attends Club or Organization Meetings: Never Marital Status: Living with partner Intimate Partner Violence: Not At Risk (03/21/2022) Received from [facility] Humiliation, Afraid, Rape, and Kick questionnaire [...] excessive physical activity. She can follow-up with [facility]. She can [...] Discharge 04/16/2024 06:01:44 PM PATIENT REFERRED TO: [facility] - [address] [address] DISCHARGE MEDICATIONS: Discharge Medication List [...] Starting 04/16/2024, Until Thu04/26/2024 at 2359, Normal @[facility]([id number]:LAST:1)@ (Please note: Portions of this note were [...] opened a door today documented in this [facility]SSelect [facility] [id number] Emergency department Triage note* Laura Mack RN - 04/16/2024 5:33 PM EDT Pt c.o lower back pain radiating down L leg, states the pain worsened when she opened a door today [facility]43 Physician Emergency department Note* Gissel Hernandez PA-C - 04/16/2024 5:33 PM EDT [facility] ED eMERGENCY dEPARTMENT eNCOUnter Pt Name: Cheryl [...] retention. No saddle paresthesias. She tried some hfwf-lxm-xzxxcls medications with no relief of her symptoms. 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 Overall Financial Resource Strain ([facility]) Difficulty of Paying Living Expenses: Not hard at all Food Insecurity: No Food Insecurity (03/21/2022) Received from [facility] Hunger Vital Sign Worried About Running Out of Food in the Last Year: Never true Ran Out of Food in the Last Year: Never true Transportation Needs: No Transportation Needs (03/21/2022) [facility] PRAPARE - Transportation Lack of Transportation (Medical): No Lack of Transportation (Non-Medical): No Physical Activity: Inactive (03/21/2022) [facility] from [facility] [employer] [facility] Exercise Vital Sign Days of Exercise per Week: 0 days Minutes of Exercise per Session: 0 min Stress: No Stress Concern Present (03/21/2022) Received from [facility] [employer] - Occupational Stress Questionnaire Feeling of Stress : Only a little Social Connections: Moderately Isolated (03/21/2022) Received from [facility] Social Connection and Isolation Panel [NHANES] Frequency of Communication with Friends and Family: More than three times a week Frequency of Social Gatherings with Friends and Family: Once a week Attends Adventism Services: Never Active Member of Clubs or Organizations: No Attends Club or Organization Meetings: Never Marital Status: Living with partner Intimate Partner Violence: Not At Risk (03/21/2022) Received from [facility] Humiliation, Afraid, Rape, and Kick questionnaire [...] mg (60 mg IntraMUSCular Given 04/16/24 1809) Medical Decision Making Problems Addressed: Acute low [...] excessive physical activity. She can follow-up with [facility]. She can [...] Discharge 04/16/2024 06:01:44 PM PATIENT REFERRED TO: [facility] - [address] [address] DISCHARGE MEDICATIONS: Discharge Medication List [...] Starting 04/16/2024, Until Thu04/26/2024 at 2359, Normal @[facility]([id number]:LAST:1)@ (Please note: Portions of this note were completed with a voice recognition program. Efforts were made to edit thedictations but occasionally words and phrases are mis-transcribed.) Form v2016.J.[id number] Gissel Hernandez PA-C (electronically signed) Emergency Medicine Provider Gissel Hernandez PA-C 04/16/241958 [facility] [id number] History of Present illness Narrative* Wilfredo Maximiliano Fischer, - 02/06/2023 11:00 AM EDT Images from the original note were not included. [facility] [address] [place] [id number] Visit type: Established Patient Reason for Visit: [...] scheduled to see Neurologist, Dr. Garvey in [place] in about 2 weeks. Review of Systems [...] Onset No Known Problems Mother Gael More (HEEL SEAT POUNDER at [facility]) Heart disease Father Sae COPD [...] or Babinski. Toes downgoing and no clonus. Oyxfgx-gl-dpxq, tandem and Romberg testing is normal. Recheck blood pressure slightly elevated. Reviewed multiple studies including cervical MRI. EMG of the upper or lower extremities. Lumbar back x-rays. Reviewed lab work. documented in this encounterSSelect Medical Specialty Hospital - [id number] Telephone encounter Note* Telephone Encounter - Jane Downs - 01/01/2023 3:04 PM EDT Extension's new tracking # [id number] Auth # [id number] good until 01/31/23. Pt advised and is going to schedule herself [facility] [id number] Miscellaneous Notes* Telephone Encounter - Jane Downs - 01/01/2023 3:04 PM EDT Extension's new tracking # [id number] Auth # [id number] good until 01/31/23. Pt advised and is going to schedule herself * Telephone Encounter - Fe Mclean - 01/01/2023 9:08 AM EDT Name of caller: Susy Contact phone number: [phone] Relationship to Patient: patient Provider: Dr. Fischer Practice: [facility] Chief Complaint/Reason for Call: The patient [...] return their call: No documented in this [facility]07-06-2023 Telephone encounter Note* Telephone Encounter - Fe Mclean - 01/01/2023 9:08 AM EDT Name of caller: Susy Contact phone number: [phone] Relationship to Patient: patient Provider: Dr. Fischer Practice: [facility] Chief Complaint/Reason for Call: The patient [...] business hours to return their call: No [facility] [id number] Telephone encounter Note* Telephone Encounter - Shannon Butt MA - 12/31/2022 12:31 PM EDT Rx loaded [facility] [id number] Miscellaneous Notes* Telephone Encounter - Shannon Butt MA - 12/31/2022 12:31 PM EDT Rx loaded documented in this [facility]06-05-2023 Note* Addendum Note - Briseyda Dubois - 12/01/2022 3:51 PM EDTAddended by: BRISEYDA DUBOIS on: 12/01/2022 03:51 PM Modules accepted: Orders [place] [id number] Miscellaneous Notes* Addendum Note - Briseyda Dubois [...] MRI of cervical spine. documented in this [facility]04-24-2023 Telephone encounter Note* Telephone Encounter - Kacey Means - 10/20/2022 12:30 PM EDT Orders pended for doctor signature [place] [id number] Miscellaneous Notes* Telephone Encounter - Kacey Means - 10/20/2022 12:30 PM EDT Orders pended for doctor signature * Telephone Encounter - Kacey Means - 10/20/2022 12:25 PM EDT ----- Message from Shannon Butt MA sent at 10/20/2022 11:21 AM EDT ----- Patient was given the number to schedule with neuro patient would like the MRI of cervical spine. documented in this encounterSSelect Medical Specialty Hospital - [id number] Telephone encounter Note* Telephone Encounter - Kacey Means - 10/20/2022 12:25 PM EDT ----- Message from Shannon Butt MA sent at 10/20/2022 11:21 AM EDT ----- Patient was given the number to schedule with neuro patient would like the MRI of cervical spine. [facility] [id number] Telephone encounter Note* Telephone Encounter - Briseyda Dubois - 10/09/2022 10:05 AM EDT Orders pended for doctor's signature [place] [id number] Miscellaneous Notes* Telephone Encounter - Briseyda Dubois - 10/09/2022 10:05 AM EDT Orders pended for doctor's signature * Telephone Encounter - Briseyda Dubois - 10/09/2022 [...] exams if she agrees. documented in this [facility]04-13-2023 Telephone encounter Note* Telephone Encounter - Briseyda [...] her. Schedule those exams if she agrees. [facility] [id number] Telephone encounter Note* Telephone Encounter - Briseyda Dubois - 08/05/2022 12:29 PM EST Referral pended for dx and doctor's signature [facility] [id number] Miscellaneous Notes* Telephone Encounter - Briseyda Dubois - 08/05/2022 12:29 PM EST Referral pended for dx and doctor's signature * Telephone Encounter - Wilfredo Fischer DO - 08/03/2022 3:38 PM EST Need list of neurologist this patient may consult documented in this [facility]02-05-2023 Telephone encounter Note* Telephone Encounter - Wilfredo Fischer DO - 08/03/2022 3:38 PM EST Need list of neurologist this patient may consult [facility] [id number] History of Present illness Narrative* Wilfredo Fischer DO - 08/01/2022 8:40 AM EST Images from the original note were not included. [place] [address] [address] [facility] [address] Visit type: Established Patient Reason for Visit: [...] Onset No Known Problems Mother Gael More (HEEL SEAT POUNDER at [employer]) Heart disease Father Sae COPD [...] Her gait is normal. documented in this [facility]01-10-2023 Telephone encounter Note* Telephone Encounter - Leah Leslie - 07/08/2022 2:23 PM EST Name of caller: Cheryl Contact phone number: [phone] Relationship to Patient: patient Provider: Dr. Fischer Practice: [facility] Chief Complaint/Reason for Call: Patient calling in stating that she missed a call from the office.No messages seen in chart. Please Advise. Best time of day caller can be reached: ANY Patient advised that office/PCP has 24-48 business hours to return their call: Yes [facility] [id number] Miscellaneous Notes* Telephone Encounter - Leah Leslie - 07/08/2022 2:23 PM EST Name of caller: Cheryl Contact phone number: [phone] Relationship to Patient: patient Provider: Dr. Fischer Practice: [facility] Chief Complaint/Reason for Call: Patient calling in stating that she missed a call from the office.No messages seen in chart. Please Advise. Best time of day caller can be reached: ANY Patient advised that office/PCP has 24-48 business hours to return their call: Yes documented in this [facility]10-08-2021 NoteHNO ID: [id number] Author: Ayan Sadler DO Service: ? Author Type: Physician Type: [...] Ayan Sadler DO April 05, 2021 8:56 [facility] Evaluation note* Diagnosis Instability of right shoulder [...] radiculopathy, chronic documented in this encounter [facility] TravelCLICKEvaluation note* Diagnosis Lumbar radiculopathy, chronic [facility]* Diagnosis Paresthesia of upper extremity Abnormal NCS (nerve conduction studies) documented [facility] TravelCLICKEvaluation [facility]* Diagnosis Anxiety- Primary Anxiety state, unspecified documented [facility] TravelCLICKEvaluation [facility]* Diagnosis Essential hypertension- Primary Unspecified essential hypertension Idiopathic neuropathy Other specified idiopathic peripheral neuropathy [facility]* Diagnosis Onset Date Resolution Status Benign intracranial hypertension acute Fibromyalgia acute Headache acute Hypersomnia acute Polyneuropathy acute [facility] Work Phone: Evaluation note* Diagnosis Onset Date Resolution Status Hypersomnia acute Polyneuropathy acute Fatigue chronic Encounter for procedure none active Cellulitis and abscess of foot acute Fatigue chronic Fatigue chronic Benign intracranial hypertension acute Fibromyalgia acute Headache acute Hypersomnia acute [facility] Work Phone: Evaluation note* Diagnosis Acute low back pain with sciatica, sciatica laterality unspecified, unspecified back pain laterality- Primary [facility]* Diagnosis Lumbar pain- Primary Lumbago Lumbar radiculopathy Thoracic or lumbosacral neuritis or radiculitis, unspecified Lumbar spondylosis Lumbosacral spondylosis without myelopathy Degeneration of intervertebral disc of lumbar region with discogenic back pain and lower extremity pain Left hip pain Pain in joint, pelvic region and thigh documented [facility]* Diagnosis Tear of left acetabular labrum, initial encounter- Primary Left hip pain Pain in joint, pelvic region and thigh Tendinopathy of gluteus medius documented in this encounter [facility]* Diagnosis Left hip pain Pain in joint, pelvic region and thigh documented in this encounter [facility]* Diagnosis Tactile hypesthesia- Primary Disturbance of skin sensation Lumbar radiculopathy Thoracic or lumbosacral neuritis or radiculitis, unspecified documented in this encounter [facility]* Diagnosis Cough, unspecified- Primary documented in this encounter [facility] HospitalEvalubeebe [facility] center note* Diagnosis Cough, unspecified- Primary documented in this encounter [facility]* Diagnosis Tactile hypesthesia Disturbance of skin sensation Lumbar radiculopathy Thoracic or lumbosacral neuritis or radiculitis, unspecified Bilateral hip pain Pain in joint, pelvic region and thigh documented in this encounter [facility]* Diagnosis Lumbar radiculopathy, chronic- Primary documented in this encounter [facility]* Diagnosis Lumbar radiculopathy, chronic- Primary Paresthesia of upper extremity Class 3 severe obesity due to excess calories with serious comorbidity and body mass index (BMI) of 40.0 to 44.9 in adult (HCC) documented in this encounter [facility] HospitalEvalubeebe medical center noteNo assessment information availableWOhio Valley Hospital Work Phone: Evaluation note* Diagnosis Onset Date Resolution Status Admit Date Advanced maternal age (AMA) in acute March 07 025 3:44pm Anxiety acute March 07, 2025 3:44pm Benign intracranial hypertension acute March 07 025 3:44pm Current in first trimester with history of placenta previa during acute March 07, 2025 3:44pm Hx of section acute Se ptember 2024 3:44pm Hx of delivery, currently acute February 3:44pm Obesity affecting acute March 07, 2025 3:44pm acute March 07, 2025 3:44pm Rh negative status during acute March 07 025 3:44pm Subchorionic hematoma acute Sep ber 2024 3:44pm Supervision of high-risk acute March 07 025 3:44pm Hidradenitis suppurativa inactive March 07, 2025 3:44pm [facility] Work Phone: Hospital Discharge instructions* Attachments The following attachments cannot be sent through Care Everywhere. * Sore Throat (Turkish) documented in this [facility] Work Phone: Hospital Discharge instructions* Attachments The following attachments cannot be sent through Care Everywhere. * Sciatica Discharge Instructions (Turkish) * Sciatica Exercises (Turkish) [facility] Additional Instructions Follow schedule that you are given for the rabies vaccine series. Take antibiotics as prescribed if you develop surrounding redness or purulent drainage while on antibiotics you need to return to the emergency department. Follow-up your primary care physician or if you not having you referred to 1. Return with any other concerns. Your tetanus shot was updated today.[facility] Work Phone: Hoital Discharge instructionsAdditional Instructions Follow-up with Morris SENIOR SCIENTIST. Call to make an appointment if they do not call you. Return back to the ED if symptoms change or worsen.[facility] Work Phone: Reason for referral (narrative)* Consultation (Routine) - Pending Review Specialty Diagnoses / Procedures Referred By Contac t Referred To Contact Orthopedic Surgery Diagnoses Acute low back pain with sciatica, sciatica laterality unspecified, unspecified back pain laterality Gissel Hernandez, LEX [address] [place] [address] [facility] [place] [address] [place] [address] Referral ID Status Reason Start Date Expiration Date Visits Requested Visits Authorized [id number] Pending Review Specialty Services Required 4 04/16/2025 1 1 [facility] for referral (narrative)* Consultation (Routine) - Pending Review Specialty Diagnoses / Procedures Referred By Contac t Referred To Contact Neurology Diagnoses Lumbar radiculopathy, chronic Procedures [place] OFFICE/OUTPATIENT [facility] 60-74 MINUTES Wilfredo Fischer DO [address] [place] [address] Herberth Steele MD [address] [place] [address] Referral ID Status Reason Start Date Expiration Date Visits Requested Visits Authorized [id number] Pending Review Specialty Services Required 08/05/2022 08/05/2023 1 1 [facility] for referral (narrative)No reason for referral information availableWOhio Valley Hospital Work Phone: Summary Purpose Family History Relationship Condition Age at Onset Recorded Date/T marty Not Specified Diabetes mellitus Unknown Cardiac disease Unknown Malignant neoplasm of pancreas 70 father Cardiac disease Unknown Chronic obstructive pulmonary disease Unk nown Pulmonary emphysema Unknown Hypertension Unknown mother Cardiac disease Unknown Disorder of thyroid Unknown Malignant neoplasm 45 grandmother Pulmonary emphysema Unknown Not Specified Multiple sclerosis Unknown Malignant neoplasm 65 uncle Malignant neoplasm 60 grandfather Malignant neoplasm Unknown Advance Directives Documents on File Type Date Recorded Patient Salmon Gillnet Vessel Operator Expl anation ACP-Advance Directive ACP-Power of Grating Machine Operator Latest Code Status on File Code Status Date Activated Date Inactivated Comments Full Code 12/30/2017 11:01 PM 01/01/2018 2:47 PM Full Code 12/04/2017 11:48 PM 12/30/2017 11:01 PM Documents on File Type Date Recorded Patient Salmon Gillnet Vessel Operator Expl anation ACP-Advance Directive ACP-Power of Grating Machine Operator Latest Code Status on File Code Status [...] Will No April 12 6:40pm Power of Grating Machine Operator No April 12, 2021 6:40pm Advance Directive Response Recorded Date/ Time Living Will No June 23, 2 023 3:04pm Power of Grating Machine Operator No June 23, 2023 3:04pm Advance Directive Response Recorded Date/ Time Living Will No September 21, 2024 7:12pm Do you have a Healthcare Power of Grating Machine Operator? No September 21, 2024 7:12pm Advance Directive Response Recorded Date/ Time Do you have a Healthcare Power of Grating Machine Operator? No March 04, 2025 4:58pm Reason for Referral Status Reason Specialty Diagnoses / Procedures Referred By Contact Referred To Contact Open Specialty Services Required Orthopedic Surgery Diagnoses Acute pain of right shoulder Niurka Rivas MD [address] [place] [address] [facility] [place] [id number] [place] [address] Scheduling Instructions [facility] Orthopedics - [address] [address] Status Reason Specialty Diagnoses / Procedures Referre d By Contact Referred To Contact Closed Radiology Diagnoses Instability of right shoulder joint Procedures XR SHOULDER ARTHROGRAM RIGHT S&I Pinky Romero MD 1 [facility] [address] [place] [address] Status Reason Specialty Diagnoses / Procedures Referred By Contact Referred To Contact Open Specialty Services Required Otolaryngology Diagnoses Mouth pain Throat pain [place], LILLIAN - CHEESE PROCESSOR [address] [place] [address] [facility] Ent Ach [address] [place] [address] Scheduling Instructions [facility] [address] [place], [place] [address] F: [phone] Specialty Diagnoses / Procedures Referred By Contac t Referred To Contact Diagnoses Paresthesia of upper extremity Procedures NERVE CONDUCTION TEST WITH EMG Wilfredo Fischer DO [address] [place] [address] Referral ID Status Reason Start Date Expiration Date V isits Requested Visits Authorized [id number] Incomplete 10/09/2022 04/07/2023 1 1 Specialty Diagnoses / Procedures Referred By Contac t Referred To Contact Radiology Diagnoses Lumbar radiculopathy, chronic Procedures MR cervical spine wo contrast Wilfredo Fischer, DO [address] [place] [address] Referral ID Status Reason Start Date Expiration Date V isits Requested Visits Authorized [id number] Pending Review 10/20/2022 04/18/2023 1 1 Specialty Diagnoses / Procedures Referred By Contac t Referred To Contact Radiology Diagnoses Paresthesia of upper extremity Abnormal NCS (nerve conduction studies) Procedures MR cervical spine wo contrast Wilfredo Fischer, DO [address] [place] [address] Referral ID Status Reason Start Date Expiration Date V isits Requested Visits Authorized [id number] Authorized 11/18/2022 05/17/2023 1 1 Specialty Diagnoses / Procedures Referred By Nasra t Referred To Contact Diagnoses Cough, unspecified Procedures Complete PFT pre and post bronchodilator Wilfredo Fischer, DO [address] [place] [address] Referral ID Status Reason Start Date Expiration Date V isits Requested Visits Authorized [id number] Incomplete 04/17/2022 10/14/2022 1 1 Discharge Instructions [...] sent through Care Everywhere. * Shoulder Sprain (Turkish) documented in this encounter Assessments Diagnosis Acute [...] MEDS ONLY October 05, 2024 4:31 pm Chief Complaint Admit Date March 04, 2025 4:26pm Chief Complaint Admit Date March 04, 2025 4:26pm NOB LMP 12/29 LEIDY 10/05 *Per SM February 3:44pm Reason for Visit Admit Date Advanced maternal age (AMA) in March 07, 2025 3:44pm Anxiety March 07, 2025 3:44pm Benign intracranial hypertension [facility] 2024 3:44pm Current in first t ester with history of placenta previa during March 07, 2025 3:44pm Hx of section March 07 3:44pm Hx of delivery, currently pregna nt March 07, 2025 3:44pm Obesity affecting February 3:44pm March 07, 2025 3:44pm Rh negative status during Feb 3:44pm Subchorionic hematoma March 07 3:44pm Supervision of high-risk [facility] 2024 3:44pm Hidradenitis suppurativa March 07, 2025 3:44pm Additional Source Comments INFORMATION SOURCE (unrecogn ized section and content) DATE CREATED AUTHOR 12/22/2017 [facility] ([place]) DATE CREATED AUTHOR AUTHOR'S ORGANIZ ATION 02/17/[address] [facility] DATE CREATED AUTHOR AUTHOR'S ORGANIZ ATION 06/06/2021 [facility] DATE CREATED AUTHOR AUTHOR'S ORGANIZ ATION 08/05/2021 [facility] DATE CREATED AUTHOR AUTHOR'S ORGANIZ ATION 03/31/2022 [facility] DATE CREATED AUTHOR AUTHOR'S ORGANIZ ATION 05/02/2024 [facility] DATE CREATED AUTHOR AUTHOR'S ORGANIZ ATION 03/06/2025 [facility] Reason for Visit (unrecogniz ed section and content) Reason Comments Shoulder Injury Right Status Reason Specialty Diagnoses / Procedures Referre d By Contact Referred To Contact Closed Radiology Diagnoses Instability of right shoulder joint Procedures XR SHOULDER ARTHROGRAM RIGHT S&I Pinky Romero MD 1 [facility] [address] [place] [address] Reason Comments Mouth Lesions Reason Onset Date [...] wo contrast Wilfredo Fischer F, DO [address] [place] [address] Referral ID Status Reason Start Date Expiration Date V isits Requested Visits Authorized [id number] Authorized 11/18/2022 05/17/2023 1 1 Reason Comments Numbness In left arm all the time, and on and off in right arm since July, feet have been swelling Reason Comments Med Refill Reason Comments Back Pain Reason Comments Back Pain RECRUITING INTERN Lumbar Pain Specialty Diagnoses / Procedures Referred By Contac t Referred To Contact Orthopedic Surgery Diagnoses Acute low back pain with sciatica, sciatica laterality unspecified, unspecified back pain laterality Gissel Hernandez, PAPaulC [address] [place] [address] Phone: tel: fax: [facility] Orthopedics and Sports Medicine - [address] [address] Phone: tel: fax: Referral ID Status Reason Start Date Expiration Date V isits Requested Visits Authorized [id number] Closed Specialty Services Required 04/16/2024 04/16/2025 1 1 Reason Comments New Patient Hip Pain Left Specialty Diagnoses / Procedures Referred By Nasra t Referred To Contact Sports Medicine Diagnoses Left hip pain Procedures FL OFFICE/OUTPATIENT NEW HIGH MDM 60 MINUTES Jason Castro APRN - CHEESE PROCESSOR [address] [facility] [address] [place] [address] Phone: tel: fax: [facility] [address] [place] [address] Phone: tel: fax: Referral ID Status Reason Start Date Expiration Date Visits Requested Visits Authorized [id number] Pending Review Specialty Services Required 04/22/2025 1 [...] Care Teams (unrecognized sec tion and content) Kiln Charger Relationship Specialty Start Date End Date Wilfredo Fischer DO [address] [place], [place] [id number] PCP - General Family Medicine 03/21/22 Kiln Charger Relationship Specialty Start Date End Date Wilfredo Fischer DO [address] [place], [place] [id number] PCP - General 03/21/22 Kiln Charger Relationship Specialty Start Date End Date Wilfredo Fischer, DO [address] [place] [address] PCP - General 03/21/22 Kiln Charger Relationship Specialty Start Date End Date Wilfredo Fischer DO [address] [place] [address] PCP - General 03/21/22 Kiln Charger Relationship Specialty Start Date End Date Wilfredo Fischer DO [address] [place] [address] PCP - General 03/21/22 Kiln Charger Relationship Specialty Start Date End Date Wilfredo Fischer DO [address] [place] [address] PCP - General 03/21/22 Kiln Charger Relationship Specialty Start Date End Date Wilfredo Fischer DO [address] [place] [address] PCP - General 03/21/22 Team Status: Active [...] Steele MD Attending Provider, Referring Provider Active Kiln Charger Relationship Specialty Start Date End Date Wilfredo Fischer DO [address] [place] [address] [address] [place] [id number] PCP - General 03/21/22 Kiln Charger Relationship Specialty Start Date End Date Amado Wilfredo Viera, DO [address] [place] [address] PCP - General 03/21/22 Kiln Charger Relationship Specialty Start Date End Date Wilfredo Fischer, DO [address] [place] [address] PCP - General 03/21/22 Kiln Charger Relationship Specialty Start Date End Date Wilfredo Fischer, DO [address] [place] [address] PCP - General 03/21/22 Kiln Charger Relationship Specialty Start Date End Date Wilfredo Fischer, DO [address] [place] [address] PCP - General 03/21/22 Kiln Charger Relationship Specialty Start Date End Date Wilfredo Fischer, DO [address] [place] [address] PCP - General 03/21/22 Team Status: Active [...] 21, 2024 End: September 21, 2024 Dr. Abih Cooper DO Emergency Provider Active Start: September [...] October 05, 2024 End: October 05, 2024 Team Status: Active Member Role/Relationship Status Dates No Primary Care Physician Primary Care Provider Active Team Status: Inactive Member Role/Relationship Status Dates No Primary Care Physician Primary Care Provider Active Start: March 04, 2025 End: March 04, 2025 Dr. Tremayne Brice DO Emergency Provider Activ e Start: March 04, 2025 End: March 04, 2025 Team Status: Inactive Member Role/Relationship Status Dates No Primary Care Physician Primary Care Provider Active Start: March 07, 2025 End: March 07, 2025 No Primary Care Physician Referring Provider Active Start: March 07, 2025 End: March 07, 2025 Dr. Comfort Sol MD Attending Provider Active Start: March 07, 2025 End: March 07, 2025 Goals (unrecognized section and content) Goals may [...] BE BASED ON THE PRIMARY CLINICAL RECORDS. [facility] [employer] [facility]. provides no warranty or guarantee of the accuracy or completeness of information in this document.
[2025-03-09 21:07] LABS: Chlamydia By Nucleic Acid AMP Negative (Negative); Gonococcus By Nucleic Acid AMP Negative (Negative)
[2025-03-10 15:08] LABS: HPV APTIMA, High Risk Negative (Negative)
== END | disposition home or self-care (01) ==
PROVIDERS: Referring Provider Obstetrics & Gynecology; Visit Provider Obstetrics & Gynecology
DX: O09.90 Supervision of high risk pregnancy, unspecified, unspecified trimester (principal); R09.89 Other specified symptoms and signs involving the circulatory and respiratory systems; Z3A.00 Weeks of gestation of pregnancy not specified; Z12.4 Encounter for screening for malignant neoplasm of cervix
CPT/HCPCS: 82570; 84156; 87086; 87088; 87491; 87591; 87624; 88175; G0145

== ENCOUNTER → 2025-03-22 | Outpatient (CLI) | payer MEDICAID, SELFPAY ==
[2025-03-22 16:54] LABS: Hematocrit 36.6 % (37-47); Hemoglobin 13.1 g/dL (12.0-15.0); Immature Granulocytes Count 0.010 X10^3/uL (0.0-0.0); Mean Corp Hgb Conc 35.8 g/dL (32-36); Mean Corpuscular Volume 89.5 fL (81-99); Mean Platelet Vol. 10.7 fl (6.2-12.0); NRBC Flagged by Analyzer 0 % (0-5); Platelet Count 280 K/mm3 (150-450); RBC Distribution Width CV 11.9 % (11.6-14.6); RBC Distribution Width SD 38.6 fl (35.1-43.9); Red Blood Count 4.09 M/mm3 (4.2-5.4); White Blood Count 7.4 K/mm3 (4.4-11.0)
[2025-03-22 17:40] LABS: AST(SGOT) 19 U/L (<=31); Alanine Aminotransfer ALT/SGPT 15 U/L (<=34); Albumin, Serum 4.0 g/dL (3.5-5.0); Alkaline Phosphatase 50 U/L (35-104); Anion Gap 13 (5-15); BUN 12 mg/dL (4-19); BUN/Creat Ratio 14.6 RATIO (10-20); Calcium,Total 9.3 mg/dL (7.6-11.0); Carbon Dioxide 20.7 mmol/L (21.0-32.0); Chloride 99 mmol/L (98-108); Globulin 2.7 g/dL (2.2-4.2); Glucose 86 mg/dL (70-99); HIV Nonreactive (Nonreactive); Hepatitis B Surface Antigen Nonreactive (Nonreactive); Hepatitis C Antibody Nonreactive (Nonreactive); Potassium 3.8 mmol/L (3.3-5.1); Syphilis Antibodies Nonreactive (Nonreactive)
== END | disposition home or self-care (01) ==
PROVIDERS: Referring Provider Obstetrics & Gynecology; Visit Provider Obstetrics & Gynecology
DX: O09.90 Supervision of high risk pregnancy, unspecified, unspecified trimester (principal); O99.210 Obesity complicating pregnancy, unspecified trimester; Z3A.00 Weeks of gestation of pregnancy not specified
CPT/HCPCS: 36415; 80053; 83036; 85025; 86703; 86762; 86780; 86803; 86850; 86900; 86901; 87340

== ENCOUNTER 2025-04-15 18:47 | Emergency (ER) | payer MEDICAID, SELFPAY ==
[2025-04-15 18:48] VITALS: BP 129/85; PULSE 95; RESP 18; TEMP 36.6; O2SAT 98; BMI 44.4
[2025-04-15 19:14] VITALS: BP 151/81; PULSE 88; RESP 18; O2SAT 98
--- OUTSIDE RECORDS SUMMARY | 2025-04-15 19:37 | XMS RPT_ITS | CCD ---
Author Organization [facility] Care Team Providers Care Cream Gatherer Name Role Phone KIRAATRICE CHRISTIE Unavailable Unavailable MILTON DIAS Unavailable Unavailable Unavailable Primary Care Provider Unavailabl e Unavailable Primary Care Provider UnavailWilfredo Ratliff DO Primary Care Provider Wilfredo Fischer Primary Care Unavailable Wilfredo Fischer Attending Unavailable PROVIDER, UNKNOWN Referring Unavailable PROVIDER, UNKNOWN Referring Unavailable Nelson Brown Attending Unavailable Milton Dias Primary Care Unavailable Mignon Morales Attending Unavailable Milton Dias Primary Care Unavailable PROVIDER, UNKNOWN Referring Unavailable PROVIDER, UNKNOWN Referring Unavailable Nelson Brown Attending Unavailable Milton Dias Primary Care Unavailable Wilfredo Fischer DO Primary Care Provider Wilfredo Fischer DO Primary Care Provider Dr. Wilfredo Fischer Primary Care Provider Dr. Wilfredo Fischer Referring Provider Dr. Herberth Steele Attending Provider [phone] Wilfredo Fischer DO Primary Care Provider [phone] Dr. Wilfredo Fischer Primary Care Provider Dr. Herberth Steele Attending Provider Dr. Herberth Steele Referring Provider Dr. Wilfredo Fischer Referring Provider [phone] Unavailable Primary Care Provider UnavailSHAY Cronin Attending Unavailable JASON CASTRO Referring Unavailable JASON CASTRO Referring Unavailable JASON CASTRO Attending Unavailable GISSEL HERNANDEZ Referring Unavailable SHAY IZQUIERDO Attending Unavailable SHAY IZQUIERDO Referring Unavailable WILFREDO FISCHER Primary Care Unavailable Kenneth VIDALES, Dr. Moe Emergency Provider Care Physician, No Primary Primary Care Provider Unavailable Kenneth VIDALES, Dr. Moe Attending Provider Care Physician, No Primary Primary Care Provider Unavailable Yuniel VIDALES, Dr. Casper Emergency Provider Care Physician, No Primary Referring Provider Un available Sweta FERRELL, Dr. Moyer Attending Provider Care Physician, No Primary Primary Care Physicia n Unavailable Yuniel VIDALES, Dr. Casper Attending Physician Yuniel VIDALES, Dr. Casper [facility] Sweta FERRELL, Dr. Moyer Attending Physician Sweta FERRELL, Dr. Moyer Referring Provider [phone] Hema Robins DO, Dr. Crow Attending Physician NO PRIMARY CARE, MD Primary Care Unavailable CAITLYN GRANADO Attending Unavailable COMFORT AGEE Referring Jean Pierre Ibrahim TECHNICAL INSTRUCTOR-CTiarra Attending Physician [phone] Comfort Agee Attending Unavailable Comfort Agee Referring Unavailable Care Physician, No Primary Primary Care Unava ilable Care Physician, No Primary Primary Care Unava ilable Tremayne Brice Attending UnavailAbhi Grigsby Attending Unavailable Care Physician, No Primary Primary Care Unava ilable Abhi Cooper Attending Unavailable Care Physician, No Primary Primary Care Unava ilable Abhi Cooper Attending Unavailable Care Physician, No Primary Primary Care Unava ilable Care Physician, No Primary Primary Care Unava ilable Abhi Cooper Attending Unavailable Comfort Agee Referring Unavailable Care Physician, No Primary Primary Care Unava ilable Comfort Agee Attending Unavailable Care Physician, No Primary Referring Unava ilable Care Physician, No Primary Primary Care Unava ilable Mignon Washington Attending Unavailabl e Care Physician, No Primary Primary Care Unava ilable Tiarra Ibrahim NP Attending Unavailable Care Physician, No Primary Referring Unava ilable Care Physician, No Primary Primary Care Unava ilable Chaya Alejandro Attending Unavailable Care Physician, No Primary Referring Unava ilable Care Physician, No Primary Referring Unava ilable Comfort Agee Attending Unavailable Care Physician, No Primary Primary Care Unava ilable Allergies Allergy Classification Reported Allergen(s) Allergy Type Date of Onset Reaction(s) Facility (20 sources) Minocycline; Translations: [MINOCYCLINE] Drug Allergy 05-31-2021 [facility] (20 sources) nickel sulfate; Translations: [NICKEL] Drug Allergy 05-31-2021 [facility] Work Phone: (11 sources) Minocycline Drug Allergy 02-24-2023 [facility] Comment on above: swellilng (1 source) Minocycline Drug Allergy 04-13-2025 [facility] Repository Medications Current Medications Medication Drug Class(es) Dates Sig (Normalized) Sig (Original) adapalene 0.003 mg/mg topical gel (9 sources) Retinoid Start: 01-26-2023 adapalene (Differin) 0.3 % gel 01/26/2023 Active [id number] 200 actuat albuterol 0.09 mg/actuat metered dose [...] HOURS as needed February 24, 2023 12:00am Complies with drug therapy Start: 02-24-2023 take 1 puff(s) by in [...] capsule by mouth daily 0 Active Choline (4 sources) Start: 03-07-2025 take 1 capsule by mouth once daily Choline capsule Active 110 mg PO daily March 07, 2025 12:00am Complies with drug therapy Start: 03-07-2025 take 1 capsule by [facility] once daily Start: 03-07-2025 take 1 capsule by [facility] once daily Choline capsule Active 110 mg [...] swallow.. 13 g 1 04/09/2023 Active Start: 02-24-2023 Mometasone-For moterol (Dulera) 200-5 mcg/actuation HFA aerosol inhaler Active 2 NMA INHALATION TWICE A DAY February 24, 2023 12:00am Complies with drug therapy Start: 03-24-2022 take 2 puff(s) by in [...] evening. 1 each 5 03/21/2022 04/20/2022 Active labetalol hydrochloride 200 mg oral tablet (1 source) beta-Adrenergic Sage Start: 04-06-2025 take 1 tablet by mouth twice daily Labetalol 200 mg tablet Active 200 mg PO TWICE A DAY 60 2 April 06, 2025 12:00am Complies with drug therapy Magic Mouthwash (MIRACLE MOUTHWASH) (1 source) Start: 11-13-2020 Magic Mouthwash (MIRACLE MOUTHWASH) Swish and spit [...] muscle spasms. 90 tablet 04/22/2024 05/22/2024 Active Mometasone-Formoter ol (Dulera) 200-5 mcg/actuation HFA aerosol inhaler (8 sources) Start: 02-24-2023 Mometasone-Formote rol (Dulera) 200-5 mcg/actuation HFA aerosol inhaler Active [...] A DAY February 24, 2023 12:00am Multivit 65-Jasg-Zkgmyb 1-Dh a (Pnv-Dha) 27 mg iron-1 mg -300 mg capsule (4 sources) Start: 03-07-2025 Multivit 47-Ir on-Folate 1-Dha (Pnv-Dha) 27 mg iron-1 mg -300 mg capsule Active NMA PO March 07, 2025 12:00am Complies with drug therapy Start: 03-07-2025 Start: 03-07-2025 Multivit 47-Ir on-Folate 1-Dha (Pnv-Dha) 27 mg iron-1 mg -300 [...] 2025 10:03am ALPRAZolam 1 mg oral tablet (11 sources) Benzodiazepine Start: 02-25-2023 End: 03-07-2025 Alprazolam 1 mg tablet Discontinued 1 mg .ROUTE .COMPLEX 1 0 February 25, 2023 12:00am March 07, 2025 10:04am Claustrophobia Claustrophobia Take 1 tablet x1 orally 30 minutes prior to MRI. amoxicillin 875 mg / clavulanate 125 mg oral tablet (9 sources) Penicillin-class Antibacterial Start: 09-21-2024 End: 03-07-2025 Amoxicillin-Pot Clavulanate 875-125 mg tablet Discontinued 1 {tbl} PO Q12H 14 7 0 September 21, 2024 12:00am March 07, 2025 10:04am cephalexin 250 mg oral capsule (10 sources) Cephalosporin Antibacterial Start: 04-08-2023 End: 03-07-2025 [...] completed) docusate sodium 100 mg oral capsule (17 sources) Start: 06-03-2021 End: 07-10-2021 docusate sodium [...] 2015 7:11am flurbiprofen 100 mg oral tablet (11 sources) Nonsteroidal Anti-inflammatory Drug Start: 02-24-2023 End: [...] at 1805, For 1 dose lactobacillus acidophilus [id number] unt oral capsule (11 sources) Start: 02-24-2023 End: 03-07-2025 take 1 [...] Mecobalamin (Vitamin B12) 10,000 mcg recon soln (9 sources) Start: 03-18-2023 End: 03-18-2023 Mecobalamin (Vitamin B12) 10,000 mcg recon soln Discontinued 1000 ug IM .30 DAYS 1 March 18, 2023 12:00am March 18, 2023 12:23pm FATIGUE Start: 03-18-2023 End: 03-18-2023 Mecobalamin (Vitamin B12) 10 ,000 mcg recon soln Discontinued 1000 ug IM .30 DAYS March 18, 2023 12:00am March 18, 2023 12:23pm minocycline 100 mg oral capsule (11 sources) Tetracycline-class Drug Start: 04-11-2021 End: 02-24-2023 [...] 1 dose predniSONE 20 mg oral tablet (11 sources) Start: 04-12-2021 End: 02-24-2023 take 1 tablet by mouth twice daily Prednisone 20 mg tablet Discontinued 20 mg PO TWICE A DAY 6 0 April 12, 2021 12:00am February 24, 2023 9:24am Vit,Camacho 98-Gwei-Dxpku (Prenatabs Fa) 1 TABLET tablet (5 sources) Start: 05-12-2015 End: 06-16-2015 take 1 tablet by mouth once daily Vit,Camacho 24-Wvim-Jdruh (Prenatabs Fa) 1 TABLET tablet Discontinued 1 {tbl} PO DAILY May 12, 2015 1:00am June 16, 2015 7:11am Vit,Qrla06-Fwtl-Hn lic (Prenatabs Fa) 1 TABLET tablet (6 sources) Start: 05-12-2015 End: 06-16-2015 take 1 tablet by mouth once daily Vit,Hfjw69-Iglc-P olic (Prenatabs Fa) 1 TABLET tablet Discontinued 1 {tbl} PO DAILY May 12, 2015 1:00am June 16, 2015 7:11am Start: 05-12-2015 End: 06-16-2015 take 1 tablet by mouth once daily Vit,Tivz99-Gxuq-Gkjit (Prenatab s Fa) 1 TABLET tablet Discontinued 1 TABLET PO DAILY May 12, 2015 12:00am June 16, 2015 6:11am Start: 05-12-2015 End: 06-16-2015 take 1 tablet by mouth once daily Vit,Lxjl25-Kork-Vhbtc (Prenatab s Fa) 1 TABLET tablet Discontinued [...] allergy status] Onset: 06-03-2021 Episodic Anxiety disorders (20 sources) Anxiety; Translations: [Anxiety disorder, unspecified] Onset: 04-13-2025 01-15-2023 Chronic Asthma (20 sources) Mild intermittent asthma; Translations: [Mild intermittent asthma, uncomplicated] Onset: 06-29-2007 03-21-2022 Chronic Blindness and vision defects (11 sources) Blurring of visual image; Translations: [Other visual disturbances] 02-25-2023 Episodic Conditions associated with dizziness or vertigo (18 sources) Vertiginous syndrome; Translations: [Unspecified disorder of vestibular function, unspecified ear] 08-12-2023 Episodic Diseases of mouth; excluding dental (1 source) Painful mouth; Translations: [Other lesions of oral mucosa] Episodic E Codes: Natural/environment (9 sources) Cat bite - wound; Translations: [Bitten by cat, initial encounter] 09-21-2024 Episodic Essential hypertension (10 sources) Essential hypertension; Translations: [Essential (primary) hypertension] Onset: 06-29-2021 02-06-2023 Chronic Headache; including migraine (13 sources) Headache; Translations: [Headache] 02-25-2023 Episodic Hemorrhage during ; abruptio placenta; placenta previa (19 sources) Placenta previa; Translations: [Complete placenta previa NOS or without hemorrhage, second trimester] Onset: 12-14-2017 Resolved: 01-01-2018 01-01-2018 Episodic Hypertension complicating ; childbirth and the puerperium (3 sources) Hypertension complicating ; Translations: [Unspecified maternal hypertension, unspecified trimester] Onset: 04-13-2025 04-06-2025 Chronic Comment on above: Labetalol. BP Ch 1 w k Joint disorders and dislocations; trauma-related (1 source) Acetabular labrum tear 04-29-2024 Chronic Malaise and fatigue (13 sources) Fatigue; Translations: [Other fatigue] 03-18-2023 Episodic Other circulatory disease (20 sources) Labile systemic arterial hypertension; Translations: [Other specified symptoms and signs involving the circulatory and respiratory systems] Onset: 03-21-2022 Resolved: 02-06-2023 03-21-2022 Episodic Other circulatory disease (2 sources) Other specified symptoms and signs involving the circulatory and respiratory systems; Translations: [Other specified symptoms and signs involving the circulatory and respiratory systems] Onset: 03-07-2025 Episodic Other complications of (20 sources) Maternal obesity complicating , childbirth and the puerperium, antepartum; Translations: [Obesity complicating , unspecified trimester] Onset: 12-30-2017 Resolved: 01-01-2018 01-01-2018 Chronic Comment on above: HgbA1c Other complications of (1 source) Obesity complicating , second trimester; Translations: [Obesity complicating , second trimester] Onset: 04-13-2025 Chronic Other complications of (2 sources) Obesity complicating , unspecified trimester; Translations: [Obesity complicating , unspecified trimester] Onset: 03-22-2025 Chronic Other complications of (20 sources) High risk ; Translations: [Supervision of other high risk pregnancies, unspecified trimester] Onset: 11-09-2017 Resolved: 01-01-2018 01-01-2018 Episodic Comment on above: , LEIDY 10/05/25, Nadine Sanchez( custody of 13yo nephew) BF Titi PRR , LEIDY 10/05/25 , PC Nadine Argueta( custody of 13yo nephew) BF Titi Other complications of (20 sources) RhD negative; Translations: [Other specified related conditions, unspecified trimester] Onset: 12-30-2017 Resolved: 01-01-2018 01-01-2018 Episodic Comment on above: rhogam @ 28 wks rhogam @ 28 wks, Giv en 03/22/25 for bleeding Other complications of (12 sources) First trimester ; Translations: [Supervision of with other poor reproductive or obstetric history, first trimester] 03-07-2025 Episodic Other complications of (12 sources) Advanced maternal age ; Translations: [Elderly multigravida, unspecified as to episode of care or not applicable] 03-07-2025 Episodic Comment on above: nipt planned nipt LR Other complications of (12 sources) H/O: premature delivery; Translations: [Supervision of other high risk pregnancies, unspecified trimester] 03-07-2025 Episodic Comment on above: delivered 27w4d last , SROM 19 wks, month in [facility] before cord prolapse/emergency CS Other complications of (1 source) Supervision of other high risk pregnancies, unspecified trimester; Translations: [Supervision of other high risk pregnancies, unspecified trimester] Onset: 04-13-2025 Episodic Other complications of (1 source) Supervision of with other poor reproductive or obstetric history, first trimester; Translations: [Supervision of with other poor reproductive or obstetric history, first trimester] Onset: 04-13-2025 Episodic Other complications of (1 source) Supervision of high risk , unspecified, second trimester; Translations: [Supervision of high risk , unspecified, second trimester] Onset: 04-13-2025 Episodic Other complications of (1 source) Other specified related conditions, second trimester; Translations: [Other specified related conditions, second trimester] Onset: 04-13-2025 Episodic Other complications of (2 sources) Supervision of high risk , unspecified, unspecified trimester; Translations: [Supervision of high risk , unspecified, unspecified trimester] Onset: 03-22-2025 Episodic Other complications of (1 source) Other specified related conditions, unspecified trimester; Translations: [Other specified related conditions, unspecified trimester] Onset: 03-22-2025 Episodic Other connective tissue disease (11 sources) Fibromyalgia; Translations: [Fibromyalgia] 02-25-2023 Episodic Other [...] tendon, unspecified thigh] Onset: 04-29-2024 Episodic Other female genital disorders (1 source) Abnormal uterine and vaginal bleeding, unspecified; Translations: [Abnormal uterine and vaginal bleeding, unspecified] Onset: 03-09-2025 Chronic Other nervous system disorders (20 sources) Benign intracranial hypertension; Translations: [Benign intracranial hypertension] Onset: 06-29-2017 03-21-2022 Chronic Comment on above: acetazolamide in the past. mfm consult. been over a year since she saw a neurologist Other nervous system disorders (10 sources) Neuropathy; Translations: [Hereditary and idiopathic neuropathy, unspecified] Onset: 02-06-2023 02-06-2023 Chronic Other nervous system disorders (11 sources) Polyneuropathy; Translations: [Polyneuropathy, unspecified] 02-25-2023 Chronic Other nervous system disorders (3 sources) Benign intracranial hypertension; Translations: [Benign intracranial hypertension] Onset: 04-13-2025 02-24-2023 Chronic Other nervous system disorders (2 [...] Chronic Other nutritional; endocrine; and metabolic disorders (10 sources) Obesity; Translations: [Obesity, unspecified] 04-06-2023 Chronic Other nutritional; endocrine; and metabolic disorders (1 source) Severe obesity; Translations: [Morbid (severe) obesity due to excess calories] Chronic Other and delivery including normal (12 sources) ; Translations: [Encounter for supervision of normal , unspecified, unspecified trimester] 03-07-2025 Episodic Comment on above: elects NIPT with gen rico-carrier undecided NIPT low risk. Horiz on neg. Other screening for suspected conditions (not mental disorders or infectious disease) (3 sources) Abnormal nerve conduction; Translations: [Abnormal response to nerve stimulation, unspecified] Onset: 03-07-2025 01-01-2023 Episodic Other skin disorders (8 sources) Hidradenitis suppurativa; Translations: [Hidradenitis suppurativa] 03-07-2025 Episodic Other skin disorders (1 source) Hidradenitis suppurativa; Translations: [Hidradenitis suppurativa] Onset: 03-07-2025 Episodic Other upper respiratory disease (20 sources) Chronic laryngotracheitis; Translations: [Chronic laryngotracheitis] Onset: 03-21-2022 03-21-2022 Chronic Other upper respiratory disease (1 source) Pain in throat; Translations: [Pain in throat] Episodic Polyhydramnios and other problems of amniotic cavity (20 sources) premature rupture of membranes ; Translations: [ premature rupture of membranes, unspecified as to length of time between rupture and onset of labor, unspecified trimester] Onset: 03-22-2025 Resolved: 01-01-2018 01-01-2018 Episodic Comment on above: per care c enter per care c enter- bleeding at 12 weeks. rhogam given 03/22/25 Residual codes; unclassified (11 sources) Hypersomnia; Translations: [Hypersomnia, unspecified] 02-25-2023 Chronic Residual codes; unclassified (3 sources) Hypersomnia, unspecified; Translations: [Hypersomnia, unspecified] 02-24-2023 Chronic Residual codes; unclassified (10 sources) Daytime hypersomnia; Translations: [Hypersomnia, unspecified] 04-06-2023 Chronic Residual codes; unclassified (1 source) Unspecified blood type, Rh negative; Translations: [Unspecified blood type, Rh negative] Onset: 04-13-2025 Episodic Residual codes; unclassified (1 source) History of uterine scar from previous surgery; Translations: [History of uterine scar from previous surgery] Onset: 04-13-2025 Episodic Residual codes; unclassified (1 source) 14 weeks gestation of ; Translations: [14 weeks gestation of ] Onset: 04-13-2025 Episodic Residual codes; unclassified (1 source) 11 weeks gestation of ; Translations: [11 weeks gestation of ] Onset: 03-22-2025 Episodic Residual codes; unclassified (1 source) 9 weeks gestation of ; Translations: [9 weeks gestation of ] Onset: 03-07-2025 Episodic Skin and subcutaneous tissue infections (11 sources) Cellulitis and abscess of lower limb; [...] Test Name Value Interpretation Reference Range Facility Chainstitch Se[employer] [facility] Office Visit Reporton 04-13-2025 Chainstitch Seat Joiner Office Visit Report [facility] [address], [address] [place] [address] OFFICE VISIT Date of Service: 04/13/25 MR#: [id number] Acct: [id number] Name: CHERYL WOOD Angelica Rep #: [id number] : 1990 Provider: JUNG Small ams Age/Sex: 34/F [place] [facility] Status: Signed Intake Vital Signs 10/09/25 13:07 04/13/25 15:06 04/13/25 15:12 Height 5 ft 9 in 5 ft 9 in 5 ft 9 in Weight: 301 lb BMI 44.4 BP 132/82 H Intake Visit Reasons: 1wk BP Check *per 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 Required: No Is patient in pain?: No Allergies minocycline Adverse Reaction (Severe, Verified 04/13/25 15:06) Hives Medications ???Medication ???Instructions ???Recorded ???Confirmed ???Type albuterol sulfate 90 mcg/actuation 2 puff inhalation Q6H PRN 04/13/25 History aerosol inhaler mometasone-formotero l HFA 200 2 puff inhalation BID 02/24/23 History mcg-5 mcg/actuation aerosol inhaler (Dulera) choline 110 mg PO QDAY 03/07/25 04/13/25 H istory multivitamin no.47-iron fum 27 cap PO 03/07/25 04/13/25 History mg-folate no.1 1 mg-dha 300 mg capsule (PNV-DHA) labetalol 200 mg tablet 200 mg PO BID #60 tabs 04/06/25 Rx Last Menstrual Period: 12/29/24 Zika: Zika virus screening: Negative : No Nurse's Note: Patient presents for BP check. Denies headache or vision changes. BP 132/82. PFSH PFSH Medical History Polyneuropathy Hidradenitis suppurativa Asthma Headache Obesity Vertigo Peripheral vestibulopathy Fatigue delivery delivered Surgical History History of third molar tooth extraction Hx [...] 12yo housing: house number of children: 2 current occupational status: employed current occupation: [employer] current occupational exposures/hazards: No pets and animals: Yes (4 dogs, 2 Cats Avoid litterbox) pets and animals: cat(s) and dog(s) history of recent travel: No sexually active: Yes Smoking Status: Former smoker Tobacco: How many years used: 15 quit status: quit date established alcohol intake: current alcohol intake frequency: a few times a month details: not while substance use type: does not use well-balanced diet: about half the time caffeine: Yes Type: coffee Number of servings: 1 eating out: 1-3 times/week during the past year weight has: remained stable what type of physical activity do you participate in: none tamir/buddhist: None seatbelt use: always do you feel safe at home: Yes additional social history: [employer] work History 3 Elective abortions Hx Para 2 Spontaneous abortions Hx # Term Pregnancies Ectopic pregnancies Hx # Pregnancies Multiple births # of living children 2 Past Pregnancies Del. Date Name GA/Weeks Outcome Route Bth Weight Gen Labor Lgth Anesthesia Del Locatn Provider FOB 06/15/15 Ellie 40 live - full term 8#9oz Female epidural [facility] 12/30/17 Nadine 27 live - 2#1oz Female general [facility] Delivery Date: 06/15/15 Last Updated by: Haley Vazquez IOL, stuck, CS Delivery Date: 12/30/17 Last Updated by: Haley Vazquez previa, cord prolapse, emergency c section HPI 1wk BP Check *per Details: CHERYL WOOD is a 34 year old who presents for routine OB visit. OB Visit LEIDY Calculator Estimated Delivery Date Method Current WG Current Estimate 10/05/25 LMP (Certain) 15w 0d Expected Delivery Route/Plan RLTCS Specific Issue/Plans Covid status: [] Flu vaccine: [] Tdap vaccine: [] Rhogam: [] LARC form signed: [] Problem list reviewed and updated with the most current plan of care details and appro (more content not included)... Normal [facility] - Chemistry and C hemistry - challengeOrdered By: Tiarra Ibrahim on 04-06-2025 Glucose Ql (U) Negative [facility] - UrinalysisOrder ed By: Tiarra Ibrahim on 04-06-2025 Protein Ql (U) Negative [facility] Office Visit Reporton 04-06-2025 Chainstitch Seat Joiner Office Visit Report [facility], [address] [place] [address] OFFICE VISIT Date of Service: 04/06/25 MR#: [id number] Acct: [id number] Name: CHERYL WOOD Rep #: [id number] : 1990 Provider: GONZÁLEZ mendez Age/Sex: 34/F [place] [facility] [place] Status: Signed Intake Vital Signs 03/07/25 16:01 03/22/25 14:43 04/06/25 13:07 Height 5 ft 9 in 5 ft 9 in 5 ft 9 in Weight: 297 lb 6 oz BMI 43.9 BP 142/82 H Intake Visit Reasons: 14wk ob 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 Required: No Is patient in pain?: No Allergies minocycline Adverse Reaction (Severe, Verified 04/06/25 13:04) Hives Medications ???Medication ???Instructions ???Recorded ???Confirmed ???Type albuterol sulfate 90 mcg/actuation 2 puff inhalation Q6H PRN 04/06/25 History aerosol inhaler mometasone-formotero l HFA 200 2 puff inhalation BID 02/24/2303/23 History mcg-5 mcg/actuation aerosol inhaler (Dulera) choline 110 mg PO QDAY 03/07/25 04/06/25 H istory multivitamin no.47-iron fum 27 cap PO 03/07/25 04/06/25 History mg-folate no.1 1 mg-dha 300 mg capsule (PNV-DHA) labetalol 200 mg tablet 200 mg PO BID #60 tabs 04/06/25 Rx Last Menstrual Period: 12/29/24 Zika: Zika virus screening: Negative : No PFSH PFSH Medical History Polyneuropathy Hidradenitis suppurativa Asthma Headache Obesity Vertigo Peripheral vestibulopathy Fatigue delivery delivered Surgical History History of third molar tooth extraction Hx [...] 12yo housing: house number of children: 2 current occupational status: employed current occupation: [employer] current occupational exposures/hazards: No pets and animals: Yes (4 dogs, 2 Cats Avoid litterbox) pets and animals: cat(s) and dog(s) history of recent travel: No sexually active: Yes Smoking Status: Former smoker Tobacco: How many years used: 15 quit status: quit date established alcohol intake: current alcohol intake frequency: a few times a month details: not while substance use type: does not use well-balanced diet: about half the time caffeine: Yes Type: coffee Number of servings: 1 eating out: 1-3 times/week during the past year weight has: remained stable what type of physical activity do you participate in: none tamir/buddhist: None seatbelt use: always do you feel safe at home: Yes additional social history: [employer] work History 3 Elective abortions Hx Para 2 Spontaneous abortions Hx # Term Pregnancies Ectopic pregnancies Hx # Pregnancies Multiple births # of living children 2 Past Pregnancies Del. Date Name GA/Weeks Outcome Route Bth Weight Infant Gen Labor Lgth Anesthesia Del Locatn Provider FOB 06/15/15 Ellie 40 live - full term 8#9oz Female epidural [facility] Seals Titi 12/30/17 Nadine 27 live - 2#1oz Female general [facility] Delivery Date: 06/15/15 Last Updated by: Haley Vazquez IOL, stuck, CS Delivery Date: 12/30/17 Last Updated by: Haley Vazquez previa, cord prolapse, emergency c section HPI 14wk ob Details: CHERYL WOOD is a 34 year old who presents for routine OB visit. OB Visit LEIDY Calculator Estimated Delivery Date Method Current WG Current Estimate 10/05/25 LMP (Certain) 14w 0d Expected Delivery Route/Plan RLTCS Specific Issue/Plans Covid status: [] Flu vaccine: [] Tdap vaccine: [] Rhogam: [] LARC form signed: [] Problem list reviewed and updated with the most current plan of care details and appropriate orders placed. Relevant counseling for the gestational age provided. Continue routine care an (more content not included)... Normal [facility] Progress Noteon 03-24-2025 Library Paraprofessional Authentication Interface Message Text [facility] MATERNAL- MEDICINE CONSULT Referring/Requesting Provider: Comfort Agee MD PCP: [facility], MD Sergei INDICATION FOR CONSULT: prior delivery HISTORY OF PRESENT ILLNESS: Patient is a 34 y.o. at 12w1d who presents for consultation regarding prior delivery. Her first pregancy she delivered at term via CD due to failure to progress. Her second was complicated by PPROM at 19 weeks. She had a prolonged admission for >1 month. She had cord prolapse at 27 weeks and was delivered emergently via repeat LTCD (op note reviewed 12/30/17). This she reports some spotting with wiping. No cramping. S/P rhogam. No intercourse due to this. A subchorionic hematoma was seen on outside ultrasound, follow-up ultrasound it resolved. No hematoma on US today. OB History Para Term AB Living 3 2 1 1 0 2 SAB IAB Ectopic Multiple Live Births 0 0 0 0 2 # Outcome Date GA Lbr Manav/2nd Weight Sex Type Anes PTL Lv 3 Current 2 12/30/17 27w1d 0.94 kg F CS-Unspec Gen N AGNELA Complications: Placenta Previa, PROM (premature rupture of membranes), Cord prolapse 1 Term 05/2015 41w0d 4.026 kg F CS-Unspec EPI N ANGELA Complications: Failure to Progress in Second Stage Past Medical History: Diagnosis Date Autoimmune disease BMI 39.0-39.9,adult 01/19/2018 Elevated intracranial pressure has been bothered by this lately; lost 60 pounds and from losing the weight. went back to work and suha gained all weight back and it is bothering her again. just got insurance back and so will go back; sees opthomology. Fibromyalgia had some fatigue, and numbness in extremities Hidradenitis suppurativa pt states has not caused a problem in the long time. Hypertension 03/24/25 BP is 136/73 . Neuropathy poly neuropathy Obesity affecting A1 c done; per pt's phone, value was 5.2 on 03/22/25 Rh negative state in antepartum period received Rhogam 03/22/25 d/t bleeding. Uncomplicated asthma has been feeling a bit more tight chested lately with wheezing, but resolves with the albuterol. needs to find a new PCP Past Surgical History: Procedure Laterality Date SECTION 2014 and 2017 DENTAL SURGERY molars surgically removed SHOULDER SURGERY Right PERTINENT FAMILY HISTORY: Family History Problem Relation Age of Onset Heart Disease Mother cardiomegaly High Cholesterol Mother statin High Blood Pressure Mother Skin Cancer Mother Heart Disease Father stent placed High Blood Pressure Father on medication High Blood Pressure Brother on medications Lung Cancer Maternal Grandmother Other (lung cancer) Maternal Grandmother Mult Sclerosis Maternal Grandmother Diabetes Mellitus II Maternal Grandfather Pancreatic Cancer Maternal Grandfather Diabetes Maternal Grandfather Heart Disease Maternal Grandfather Stroke Maternal Grandfather Cancer Maternal Grandfather eye and pancreas COPD Paternal Grandmother Prostate Cancer Paternal Grandfather Cancer Paternal Grandfather Lung Cancer Maternal Uncle Colon Cancer Paternal Aunt Autism Spectrum Disorder Other MEDS: Outpatient Medications Marked as Taking for the 03/24/25 encounter (Office Visit) with Caitlyn Granado, DO Medication Sig Dispense Refill Vit-Fe Fumarate-FA ( PO) Take by mouth ALBUTEROL IN Inhale into the lungs ALLERGY: Allergies[1] REVIEW OF SYSTEMS: ROS PHYSICAL EXAM: VITAL SIGNS: BP 136/73 Pulse 91 Resp 20 Ht 175.3 cm Wt (!) 134.7 kg (297 lb) LMP 12/29/2024 SpO2 98% BMI 43.86 kg/m Physical Exam AAOx3, NAD Resp effort normal IMAGIN. Nino intrauterine with cardiac activity present at 12w 1d with an LEIDY of 10/05/2025. 2. [place] rump length measurement is consistent with established gestational age. 3. First trimester nuchal translucency appeared normal for this gestational age, 1.6 mm. IMPRESSION AND RECOMMENDATIONS: Cheryl is a 34 y.o. at 12w1d with Active Non-Hospital Problems Diagnosis Date Noted History of delivery, currently in first trimester 03/24/2025 Priority: High - Prior with PPROM at 19 weeks, admission x [address] [facility], had cord prolapse as emergent delivery at 27 weeks. Her daughter, Nadine is doing well without long-term complications of prematurity. - Increased risk of PPROM, PTD reviewed. - Recommend cervical length screening every 1-4 weeks beginning at 16 0/7 weeks and repeated until 24 0/7 weeks. I have scheduled her for cervical lengths Q 2 weeks starting at 16 weeks. Recommend increasing to weekly if TVCL > 25 mm but < 30 mm. - If TVCL < 25 mm can consider vaginal progesterone, cerclage or both. Obesity affecting in first trimester 03/24/2025 - BMI 43 - Normal HA1c, 5.2%. - No hx GDM with prior pregnancies. - Screen for GDM between 24-28 weeks (more content not included)... Normal [facility] Absolute lymphocyte countOrd ered By: Comfort Agee on 03-22-2025 Lymphocytes Auto (Unsp spec) [#/Vol] 2.46 10*3/uL 0.83-4.51 [facility] Absolute neutrophil countOrd ered By: Comfort Agee on 03-22-2025 Neutrophils (Bld) [#/Vol] 4.4 10*3/uL 2.0-7.7 [facility] Anion gap in Serum or Plasma Ordered By: Comfort Agee on 03-22-2025 Anion gap [Moles/Vol] 13 mmol/L 5-15 [facility] Automated lymphocyte count a s percentage of total leukocytesOrdered By: Comfort Agee on 03-22-2025 Lymphocytes/100 WBC Auto (Unsp spec) 33.1 % 19- [facility] BUN/creatinine ratioOrdered By: Comfort Agee on 03-22-2025 Urea nitrogen/Creatinine [Mass ratio] 14.6 mg/mg 10-20 [facility] Basophil percentageOrdered B y: Comfort Agee on 03-22-2025 Basophils/100 WBC (Bld) 0.7 % 0-1 [facility] Bilirubin, totalOrdered By: Comfort Agee on 03-22-2025 Bilirubin [Mass/Vol] 0.33 mg/dL 0.00-1.30 [facility] CBC W/Diff, Automatedon 02-28 Absolute Lymph 2.46 X10 3/uL Normal 0.83-4.51 [facility] Comment on above: Performed By: #### B , L3890.6301, L509.8002, L509.4006, L501.9985, L3890.6102, L500.4050, L3890.6006, L100.0100, L900.0098 #### [facility] Laboratory [address] [place], [address] Absolute Neut 4.4 X10 3/uL Normal 2.0-7.7 [facility] Comment on above: Performed By: #### B TS, L3890.6301, L509.8002, L509.4006, L501.9985, L3890.6102, L500.4050, L3890.6006, L100.0100, L900.0098 #### [facility] [address] [place], [address] Basophils/100 WBC (Bld) 0.7 % Normal 0-1 [facility] Comment on above: Performed By: #### B TS, L3890.6301, L509.8002, L509.4006, L501.9985, L3890.6102, L500.4050, L3890.6006, L100.0100, L900.0098 #### [facility] [address] [place], [address] Eosinophils/100 WBC (Bld) 1.9 % Normal 0-5 [facility] Comment on above: Performed By: #### B TS, L3890.6301, L509.8002, L509.4006, L501.9985, L3890.6102, L500.4050, L3890.6006, L100.0100, L900.0098 #### [facility] [address] [place], [address] Erythrocyte distribution width (RBC) [Ratio] 11.9 % Normal 11.6-14.6 [facility] Comment on above: Performed By: #### B TS, L3890.6301, L509.8002, L509.4006, L501.9985, L3890.6102, L500.4050, L3890.6006, L100.0100, L900.0098 #### [facility] [address] [place], [address] Hematocrit (Bld) [Volume fraction] 36.6 % Low 37-47 [facility] Comment on above: Performed By: #### B TS, L3890.6301, L509.8002, L509.4006, L501.9985, L3890.6102, L500.4050, L3890.6006, L100.0100, L900.0098 #### [facility] [address] [place], [address] Hemoglobin (Bld) [Mass/Vol] 13.1 g/dL Normal 12.0-15.0 [facility] Comment on above: Performed By: #### B TS, L3890.6301, L509.8002, L509.4006, L501.9985, L3890.6102, L500.4050, L3890.6006, L100.0100, L900.0098 #### [facility] [address] [place], [address] IG% 0.100 Normal 0.0-0.9 [facility] Comment on above: Result Comment: IG% - Immature Granulocytes (promyelocytes, myelocytes and metamyelocytes) > 1% indicates that a LEFT SHIFT is Present. Performed By: #### B TS, L3890.6301, L509.8002, L509.4006, L501.9985, L3890.6102, L500.4050, L3890.6006, L100.0100, L900.0098 #### [facility] [address] [place], [address] Lymphocytes/100 WBC (Bld) 33.1 % Normal 19-41 [facility] Comment on above: Performed By: #### B TS, L3890.6301, L509.8002, L509.4006, L501.9985, L3890.6102, L500.4050, L3890.6006, L100.0100, L900.0098 #### [facility] [address] [place], [address] MCH (RBC) [Entitic mass] 32.0 pg Normal 27.0-32.0 [facility] Comment on above: Performed By: #### B TS, L3890.6301, L509.8002, L509.4006, L501.9985, L3890.6102, L500.4050, L3890.6006, L100.0100, L900.0098 #### [facility] [address] [place], [address] MCHC (RBC) [Mass/Vol] 35.8 g/dL Normal 32-36 [facility] Comment on above: Performed By: #### B TS, L3890.6301, L509.8002, L509.4006, L501.9985, L3890.6102, L500.4050, L3890.6006, L100.0100, L900.0098 #### [facility] [address] [place], [address] MCV (RBC) [Entitic vol] 89.5 fL Normal 81-99 [facility] Comment on above: Performed By: #### B TS, L3890.6301, L509.8002, L509.4006, L501.9985, L3890.6102, L500.4050, L3890.6006, L100.0100, L900.0098 #### [facility] [address] [place], [address] Monocytes/100 WBC (Bld) 5.1 % Normal 0-10 [facility] Comment on above: Performed By: #### B TS, L3890.6301, L509.8002, L509.4006, L501.9985, L3890.6102, L500.4050, L3890.6006, L100.0100, L900.0098 #### [facility] [address] [place], [address] Neutrophils/100 WBC (Bld) 59.1 % Normal 47-70 [facility] Comment on above: Performed By: #### B TS, L3890.6301, L509.8002, L509.4006, L501.9985, L3890.6102, L500.4050, L3890.6006, L100.0100, L900.0098 #### [facility] [address] [place], [address] Nucleated RBC (Bld) [#/Vol] 0 10*3/uL Normal 0-5 [facility] Comment on above: Performed By: #### B TS, L3890.6301, L509.8002, L509.4006, L501.9985, L3890.6102, L500.4050, L3890.6006, L100.0100, L900.0098 #### [facility] [address] [place], [address] Platelet mean volume (Bld) [Entitic vol] 10.7 fL Normal 6.2-12.0 [facility] Comment on above: Performed By: #### B TS, L3890.6301, L509.8002, L509.4006, L501.9985, L3890.6102, L500.4050, L3890.6006, L100.0100, L900.0098 #### [facility] [address] [place], [address] ( Platelets (Bld) [#/Vol] 280 10*3/uL Normal 150-450 [facility] Comment on above: Performed By: #### B TS, L3890.6301, L509.8002, L509.4006, L501.9985, L3890.6102, L500.4050, L3890.6006, L100.0100, L900.0098 #### [facility] [address] [place], [address] RBC (Bld) [#/Vol] 4.09 10*6/uL Low 4.2-5.4 [facility] Comment on above: Performed By: #### B TS, L3890.6301, L509.8002, L509.4006, L501.9985, L3890.6102, L500.4050, L3890.6006, L100.0100, L900.0098 #### [facility] [address] [place], [address] RDW SD 38.6 fl Normal 35.1-43.9 [facility] Comment on above: Performed By: #### B TS, L3890.6301, L509.8002, L509.4006, L501.9985, L3890.6102, L500.4050, L3890.6006, L100.0100, L900.0098 #### [facility] [address] [place], [address] WBC (Bld) [#/Vol] 7.4 10*3/uL Normal 4.4-11.0 [facility] Comment on above: Performed By: #### B TS, L3890.6301, L509.8002, L509.4006, L501.9985, L3890.6102, L500.4050, L3890.6006, L100.0100, L900.0098 #### [facility] [address] [place], [place], [id number] (869) Carbon dioxide, total [Moles /volume] in Central venous bloodOrdered By: Comfort Agee on 03-22-2025 CO2 [Moles/Vol] 20.7 mmol/L Low 21.0-32.0 [facility] Chloride assayOrdered By: Teresa Agee on 03-22-2025 Chloride [Moles/Vol] 99 mmol/L 98-108 [facility] Comprehensive Metabolic Prof ilon 03-22-2025 Albumin [Mass/Vol] 4.0 g/dL Normal 3.5-5.0 [facility] Comment on above: Order Comment: NIPT with gender, undecided about carrier Performed By: #### B TS, L3890.6301, L509.8002, L509.4006, L501.9985, L3890.6102, L500.4050, L3890.6006, L100.0100, L900.0098 #### [facility] [address] [place], [address] Albumin/Globulin [Mass ratio] 1.5 {ratio} Normal 0.9-2.4 [facility] Comment on above: Order Comment: NIPT with gender, undecided about carrier Performed By: #### B TS, L3890.6301, L509.8002, L509.4006, L501.9985, L3890.6102, L500.4050, L3890.6006, L100.0100, L900.0098 #### [facility] [address] [place], [place], [id number] ALK PHOS 50 U/L Normal 35-104 [facility] Comment on above: Order Comment: NIPT with gender, undecided about carrier Performed By: #### B TS, L3890.6301, L509.8002, L509.4006, L501.9985, L3890.6102, L500.4050, L3890.6006, L100.0100, L900.0098 #### [facility] [address] [place], [place], [id number] ALT [Catalytic activity/Vol] 15 U/L Normal <=34 [facility] Comment on above: Order Comment: NIPT with gender, undecided about carrier Performed By: #### B TS, L3890.6301, L509.8002, L509.4006, L501.9985, L3890.6102, L500.4050, L3890.6006, L100.0100, L900.0098 #### [facility] [address] [place], [place], [phone] (273) AST [Catalytic activity/Vol] 19 U/L Normal <=31 [facility] Comment on above: Order Comment: NIPT with gender, undecided about carrier Performed By: #### B TS, L3890.6301, L509.8002, L509.4006, L501.9985, L3890.6102, L500.4050, L3890.6006, L100.0100, L900.0098 #### [facility] [address] [place], [place], [id number] Bilirubin [Mass/Vol] 0.33 mg/dL Normal 0.00-1.30 [facility] Comment on above: Order Comment: NIPT with gender, undecided about carrier Performed By: #### B TS, L3890.6301, L509.8002, L509.4006, L501.9985, L3890.6102, L500.4050, L3890.6006, L100.0100, L900.0098 #### [facility] [address] [place], [address] BUN/CRE 14.6 RATIO Normal 10-20 [facility] Comment on above: Order Comment: NIPT with gender, undecided about carrier Performed By: #### B TS, L3890.6301, L509.8002, L509.4006, L501.9985, L3890.6102, L500.4050, L3890.6006, L100.0100, L900.0098 #### [facility] [address] [place], [address] Calcium [Mass/Vol] 9.3 mg/dL Normal 7.6-11.0 [facility] Comment on above: Order Comment: NIPT with gender, undecided about carrier Performed By: #### B TS, L3890.6301, L509.8002, L509.4006, L501.9985, L3890.6102, L500.4050, L3890.6006, L100.0100, L900.0098 #### [facility] [address] [place], [address] Chloride [Moles/Vol] 99 mmol/L Normal 98-108 [facility] Comment on above: Order Comment: NIPT with gender, undecided about carrier Performed By: #### B TS, L3890.6301, L509.8002, L509.4006, L501.9985, L3890.6102, L500.4050, L3890.6006, L100.0100, L900.0098 #### [facility] [address] [place], [place], [id number] CO2 [Moles/Vol] 20.7 mmol/L Low 21.0-32.0 [facility] Comment on above: Order Comment: NIPT with gender, undecided about carrier Performed By: #### B TS, L3890.6301, L509.8002, L509.4006, L501.9985, L3890.6102, L500.4050, L3890.6006, L100.0100, L900.0098 #### [facility] [address] [place], [place], [id number] Creatinine [Mass/Vol] 0.82 mg/dL Normal 0.70-1.20 [facility] Comment on above: Order Comment: NIPT with gender, undecided about carrier Performed By: #### B TS, L3890.6301, L509.8002, L509.4006, L501.9985, L3890.6102, L500.4050, L3890.6006, L100.0100, L900.0098 #### [facility] [address] [place], [place], [id number] GAP 13 Normal 5-15 [facility] Comment on above: Order Comment: NIPT with gender, undecided about carrier Performed By: #### B TS, L3890.6301, L509.8002, L509.4006, L501.9985, L3890.6102, L500.4050, L3890.6006, L100.0100, L900.0098 #### [facility] [address] [place], [address] GFR/1.73 sq M.predicted among non-blacks MDRD (S/P/Bld) [Vol rate/Area] 96 mL/min/{1.73_m2} Normal >60 [facility] Comment on above: Order Comment: NIPT with gender, undecided about carrier Result Comment: mL/m in/1.73m2 CKD-EPI Creatinine Equation (2020) Performed By: #### B TS, L3890.6301, L509.8002, L509.4006, L501.9985, L3890.6102, L500.4050, L3890.6006, L100.0100, L900.0098 #### [facility] [address] [place], [address] Globulin (S) [Mass/Vol] 2.7 g/dL Normal 2.2-4.2 [facility] Comment on above: Order Comment: NIPT with gender, undecided about carrier Performed By: #### B TS, L3890.6301, L509.8002, L509.4006, L501.9985, L3890.6102, L500.4050, L3890.6006, L100.0100, L900.0098 #### [facility] [address] [place], [address] Glucose [Mass/Vol] 86 mg/dL Normal 70-99 [facility] Comment on above: Order Comment: NIPT with gender, undecided about carrier Performed By: #### B TS, L3890.6301, L509.8002, L509.4006, L501.9985, L3890.6102, L500.4050, L3890.6006, L100.0100, L900.0098 #### [facility] [address] [place], [address] Potassium [Moles/Vol] 3.8 mmol/L Normal 3.3-5.1 [facility] Comment on above: Order Comment: NIPT with gender, undecided about carrier Performed By: #### B TS, L3890.6301, L509.8002, L509.4006, L501.9985, L3890.6102, L500.4050, L3890.6006, L100.0100, L900.0098 #### [facility] [address] [place], [address] Sodium [Moles/Vol] 133 mmol/L Normal 133-145 [facility] Comment on above: Order Comment: NIPT with gender, undecided about carrier Performed By: #### B TS, L3890.6301, L509.8002, L509.4006, L501.9985, L3890.6102, L500.4050, L3890.6006, L100.0100, L900.0098 #### [facility] [address] [place], [place], [id number] (151) T PROT 6.7 g/dL Normal 5.9-8.4 [facility] Comment on above: Order Comment: NIPT with gender, undecided about carrier Performed By: #### B TS, L3890.6301, L509.8002, L509.4006, L501.9985, L3890.6102, L500.4050, L3890.6006, L100.0100, L900.0098 #### [facility] [address] [place], [place], [id number] Urea nitrogen [Mass/Vol] 12 mg/dL Normal 4-19 [facility] Comment on above: Order Comment: NIPT with gender, undecided about carrier Performed By: #### B TS, L3890.6301, L509.8002, L509.4006, L501.9985, L3890.6102, L500.4050, L3890.6006, L100.0100, L900.0098 #### [facility] [address] [place], [place], [phone] (840) Eosinophil percentageOrdered By: Comfort Agee on 03-22-2025 Eosinophils/100 WBC (Bld) 1.9 % 0-5 [facility] Erythrocyte distribution wid th ratioOrdered By: Comfort Agee on 03-22-2025 Erythrocyte distribution width (RBC) [Ratio] 11.9 % 11.6-14.6 [facility] Erythrocyte distribution wid th standard deviationOrdered By: Comfort Agee on 03-22-2025 Erythrocyte distribution width (RBC) [Ratio] 38.6 fl 35.1-43.9 [facility] Glomerular filtration rate ( GFR) estimation/1.73 sq m using serum, plasma, or whole bOrdered By: Comfort Agee on 03-22-2025 GFR/1.73 sq M.predicted among non-blacks MDRD (S/P/Bld) [Vol rate/Area] 96 mL/min/{1.73_m2} >60 [facility] Comment on above: mL/min/1.73m2 CKD-EP I Creatinine Equation (2020) HIVon 03-22-2025 HIV Non-Reactive Normal Nonreactive [facility] Comment on above: Result Comment: Non- Reactive Reactive Repeatedly reactive samples must be confirmed according to CDC recommended confirmatory algorithms. The subresults for either HIVAG or AHIV can be used as an aid in the selection of the confirmation algorithm for reactive samples. Send out specimens with Reactive results to [facility] for confirmation. Order the HIV antibody detection and differentiation: [id number] Performed By: #### B TS, L3890.6301, L509.8002, L509.4006, L501.9985, L3890.6102, L500.4050, L3890.6006, L100.0100, L900.0098 ####[facility] [id number] [place], [place], [id number] Hematocrit Auto (Bld) [Volum e fraction]Ordered By: Comfort Agee on 03-22-2025 Hematocrit (Bld) [Volume fraction] 36.6 % Low 37-47 [facility] Hemoglobin A1con 03-22-2025 HbA1c (Bld) [Mass fraction] 5.2 % Normal <=5.6 [facility] Comment on above: Result Comment: Norm al < 5.7 % Prediabetic 5.7 - 6.4 % Diabetic >or= 6.5 % Please note range changes. Performed By: #### B TS, L3890.6301, L509.8002, L509.4006, L501.9985, L3890.6102, L500.4050, L3890.6006, L100.0100, L900.0098 ####[facility] [address], [address] Hemoglobin A1c percentageOrd ered By: Comfort Agee on 03-22-2025 HbA1c (Bld) [Mass fraction] 5.2 % <5.7 [facility] Comment on above: Normal < 5.7 % Predi abetic 5.7 - 6.4 % Diabetic >or= 6.5 % Please note range changes. Hemoglobin measurementOrdere d By: Comfort Agee on 03-22-2025 Hemoglobin (Bld) [Mass/Vol] 13.1 g/dL 12.0-15.0 [facility] Hepatitis C Antibodyon 03-22 Hepatitis C Ab Non-Reactive Normal Nonreactive [facility] Comment on above: Result Comment: Reac tive: Presumptive evidence of antibodies to HCV. Follow CDC recommendations for supplemental testing. Non-Reactive: Antibodies to HCV were not detected; does not exclude the possibility of exposure to HCV Reactive Results are presumptive evidence of antibodies to HCV. Follow CDC recommendations for supplemental testing. Order confirmation testing: HCV Quant by PCR testing - HCVPCR #[id number] Non Reactive: < 0.8 Equivocal: >/= 0.8 to < 1.0 Reactive: >/= 1.0 The CDC requires that a reactive/equivocal HCV antibody result be sent out for confirmation. HCV Quant by PCR testing. Performed By: #### B , L3890.6301, L509.8002, L509.4006, L501.9985, L3890.6102, L500.4050, L3890.6006, L100.0100, L900.0098 ####[facility] [address] [place], [place], [address] Immature granulocytes/100 WB C Auto (Bld)Ordered By: Comfort Agee on 03-22-2025 Immature granulocytes/100 WBC (Bld) 0.100 % 0.0-0.9 [facility] Comment on above: IG% - Immature Granu locytes (promyelocytes, myelocytes and metamyelocytes) > 1% indicates that a LEFT SHIFT is Present. L3890.6102on 03-22-2025 HEP B Surf Ag Non-Reactive Normal Nonreactive [facility] Comment on above: Result Comment: Reac tive: Presumptive evidence of HBV. Repeatedly reactive samples must be confirmed using a neutralization test (Elecsys HBsAg Confirmatory Test) Non-Reactive: HBsAg not detected; does not exclude the possibility of exposure to HBV Performed By: #### B TS, L3890.6301, L509.8002, L509.4006, L501.9985, L3890.6102, L500.4050, L3890.6006, L100.0100, L900.0098 ####[facility] [address] [facility] [place], [place], [id number] L509.4006on 03-22-2025 Rubella IgG REAC Normal Nonreactive [facility] Comment on above: Result Comment: Anti body Result: Interpretation Non-Reactive: Non-Immune Reactive: Immune The following results were obtained with the Elecsys Rubella IgG assay. Results from assays of other manufacturers cannot be used interchangeably. Performed By: #### B TS, L3890.6301, L509.8002, L509.4006, L501.9985, L3890.6102, L500.4050, L3890.6006, L100.0100, L900.0098 #### [facility] Laboratory [address] [facility] [place], [place], [id number] Laboratory - Chemistry and C hemistry - challengeOrdered By: Comfort Agee on 03-22-2025 AST [Catalytic activity/Vol] 19 U/L <32 [facility] Laboratory - Chemistry and C hemistry - challengeOrdered By: Mignon Robins on 03-22-2025 Glucose Ql (U) Negative [facility] Laboratory - Microbiology an d Antimicrobial susceptibilityOrdered By: Comfort Agee on 03-22-2025 HBV surface Ag Ql (S) Non-Reactive Nonreactive [facility] Comment on above: Reactive: Presumptiv e evidence of HBV. Repeatedly reactive samples must be confirmed using a neutralization test (Elecsys HBsAg Confirmatory Test)Non-Reactive: HBsAg not detected; does not exclude the possibility of exposure to HBV Laboratory - UrinalysisOrder ed By: Mignon Robins on 03-22-2025 Protein Ql (U) Negative [facility] MCV (mean corpuscular volume ) determinationOrdered By: Comfort Agee on 03-22-2025 MCV (RBC) [Entitic vol] 89.5 fL 81-99 [facility] Mean corpuscular hemoglobin (MCH) determinationOrdered By: Comfort Agee on 03-22-2025 MCH (RBC) [Entitic mass] 32.0 pg 27.0-32.0 [facility] Mean corpuscular hemoglobin concentration (MCHC) determinationOrdered By: Comfort Agee on 03-22-2025 MCHC (RBC) [Mass/Vol] 35.8 g/dL 32-36 [facility] Mean platelet volume determi nationOrdered By: Comfort Agee on 03-22-2025 Platelet mean volume (Bld) [Entitic vol] 10.7 fL 6.2-12.0 [facility] Monocyte percentageOrdered B y: Comfort Agee on 03-22-2025 Monocytes/100 WBC (Bld) 5.1 % 0-10 [facility] NATERAon 03-22-2025 NATURA SEE SCANNED REPORT Normal [facility] Comment on above: Order Comment: Comme nts: NIPT with gender, undecided about carrier Performed By: #### B TS, L3890.6301, L509.8002, L509.4006, L501.9985, L3890.6102, L500.4050, L3890.6006, L100.0100, L900.0098 #### [facility] [address] [place], [address] Neutrophil percentageOrdered By: Comfort Agee on 03-22-2025 Neutrophils/100 WBC (Bld) 59.1 % 47-70 [facility] No Panel InformationOrdered By: Comfort Agee on 03-22-2025 HIV (1&2) Antibody Non-Reactive Nonreactive [facility] Comment on above: Non-ReactiveReactive Repeatedly reactive samples must be confirmed according to CDC recommended confirmatory algorithms. The subresults for either HIVAG or AHIV can be used as an aid in the selection of the confirmation algorithm for reactive samples.Send out specimens with Reactive results to [facility] for confirmation.Order the HIV antibody detection and differentiation: #[id number] Nucleated red blood cell per centageOrdered By: Comfort Agee on 03-22-2025 Nucleated RBC/100 WBC (Bld) [Ratio] 0 % 0-5 [facility] Chainstitch Seat Joiner Office Visit Reporton 03-22-2025 Chainstitch Seat Joiner Office Visit Report [facility] [address], [address] [place] [address] OFFICE VISIT Date of Service: 03/22/25 MR#: [id number] Acct: [id number] Name: CHERYL WOOD Rep #: [id number] : 1990 Provider: Dr. Mignon Holman DO Age/Sex: 34/F Location: [facility] Status: Signed with Addenda ADDENDUM by Nidia Ordaz on 03/22/25 at 1533 Office Procedure Documentation entered by Nidia Ordaz 03/22/25 15:33: Injections Is this a patient provided medication?: No Office Meds RhoGAM Ultra-Filtered PLUS 1,500 unit (300 mcg) intramuscular syringe Performing Provider: Mignon Washington DO Performing Location: [facility] Administered by: Nidia Ordaz on 03/22/25 15:31 Dose Route Admin Location Dispensed Lot Number Expiration Date Package NDC NDC Order Worker 1,500 unit IM Left Gluteal 1 ea [id number] 11/29/26 [id number] [employer] Date cc: * Signed ADDENDUM by Dr. Mignon Washington DO on 03/22/25 at 1531 Assessment and Plan Assessment and Plan (1) : Status: Acute Qualifiers: Weeks of gestation: 11 weeks Qualified Code(s): Z3A.11 - 11 weeks gestation of Comment: elects NIPT with gender-carrier undecided (2) Supervision of high-risk : Status: Acute Comment: , LEIDY 10/05/25, PC EllieNadine( custody of 13yo nephew) BF Titi (3) Advanced maternal age (AMA) in : Status: Acute Comment: nipt planned (4) Rh negative status during : Status: Acute Comment: rhogam @ 28 wks (5) Subchorionic hematoma: Status: Acute Comment: per care center- bleeding at 12 weeks. rhogam given 03/22/25 (6) Anxiety: Status: Acute (7) Hx of delivery, currently : Status: Acute Comment: delivered 27w4d last , SROM 19 wks, month in ACH before cord prolapse/emergency CS (8) Hx of section: Status: Acute Comment: 2014 2017, plan RLTCS (9) Current in first trimester with history of placenta previa during prior : Status: Acute (10) Obesity affecting : Status: Acute Comment: HgbA1c (11) Benign intracranial hypertension: Status: Acute Comment: acetazolamide in the past. mfm consult. been over a year since she saw a neurologist Orders: Orders POC Urinalysis 2 Dip (Clinic) Today Rhogam Injection Today O26.899 - Other specified related conditions, unspecified trimester, Z67.91 - Unspecified blood type, Rh negative Medications: New RhoGAM Ultra-Filtered PLUS (rho(D) immune globulin) 1,500 units IM ONCE 1 ea 0RF NS O26.899 - Other specified related conditions, unspecified trimester, Z67.91 - Unspecified blood type, Rh negative Physical Exam Const alert, oriented x3, no apparent distress and healthy appearing General Appearance: cooperative; Negative for anxious Neck full ROM and supple Resp normal respiratory effort Effort and Inspection: able to speak in complete sentences GI soft to palpation and non-tender Inspection: gravid Palpation: soft; Negative for tender external exam normal Back/Spine no CVA tenderness Extremity normal to inspection, full ROM and no clubbing, cyanosis or edema General Extremity: Negative for calf tenderness or edema Skin Lesions: no lesions Rashes: no rashes Psych mental status grossly normal 03/22/25 1531 Date Hema RobinsMignon cc: * Signed Intake Vital Signs 03/07/25 16:01 03/22/25 14:43 Height 5 ft 9 in 5 ft 9 in Weight: 301 lb BMI 44.4 BP 124/79 H Intake Visit Reasons: 11wk6d ob *per 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 Required: No Is patient in pain?: No Allergies minocycline Adverse Reaction (Severe, Verified 03/22/25 14:47) Hives Medications ???Medication ???Instructions ???Recorded ???Confirmed ???Type albuterol sulfate 90 mcg/actuation 2 puff inhalation Q6H PRN 03/22/25 History aerosol inhaler mometasone-formotero l HFA 200 2 puff inhalation BID 02/24/23 History mcg-5 mcg/actuation aerosol inhaler (Dulera) choline 110 mg PO QDAY 03/07/25 03/22/25 H istory multivitamin no.47-iron fum 27 cap PO 03/07/25 03/22/25 History mg-folate no.1 1 mg-dha 300 mg capsule (PNV-DHA) Last Menstrual Period: 12/29/24 Zika: Zika virus screening: Negative : No PFSH PFSH Medical History Polyneuropathy Hidradenitis suppurativa Asthma Headache Obesity Vertigo Peripheral vestibulopathy Fatigue delivery delivered Surgical History History o (more content not included)... Normal [facility] Platelet countOrdered By: Teresa Agee on 03-22-2025 Platelets (Bld) [#/Vol] 280 10*3/uL 150-450 [facility] Potassium measurement (mass/ volume)Ordered By: Comfort Agee on 03-22-2025 Potassium (Unsp spec) [Mass/Vol] 3.8 mmol/L 3.3-5.1 [facility] RBC Auto (Bld) [#/Vol]Ordere d By: Comfort Agee on 03-22-2025 RBC (Bld) [#/Vol] 4.09 10*6/uL Low 4.2-5.4 [facility] Serum creatinine measurement (mass/volume)Ordered By: Comfort Agee on 03-22-2025 Creatinine [Mass/Vol] 0.82 mg/dL 0.70-1.20 [facility] Serum globulin measurementOr dered By: Comfort Agee on 03-22-2025 Globulin (S) [Mass/Vol] 2.7 g/dL 2.2-4.2 [facility] Serum glucose measurement (m ass/volume)Ordered By: Comfort Agee on 03-22-2025 Glucose [Mass/Vol] 86 mg/dL 70-99 [facility] Serum or plasma alanine rsoado otransferase (ALT) measurementOrdered By: Comfort Agee on 03-22-2025 ALT [Catalytic activity/Vol] 15 U/L <35 [facility] Serum or plasma albumin sameer urement (mass/volume)Ordered By: Comfort Agee on 03-22-2025 Albumin [Mass/Vol] 4.0 g/dL 3.5-5.0 [facility] Serum or plasma albumin/glob ulin mass ratioOrdered By: Comfort Agee on 03-22-2025 Albumin/Globulin [Mass ratio] 1.5 {ratio} 0.9-2.4 [facility] Serum or plasma alkaline jefe sphatase measurementOrdered By: Comfort Agee on 03-22-2025 ALP [Catalytic activity/Vol] 50 U/L 35-104 [facility] Serum or plasma calcium sameer urement (mass/volume)Ordered By: Comfort Agee on 03-22-2025 Calcium [Mass/Vol] 9.3 mg/dL 7.6-11.0 [facility] Serum or plasma urea nitroge n measurement (mass/volume)Ordered By: Comfort Agee on 03-22-2025 Urea nitrogen [Mass/Vol] 12 mg/dL 4-19 [facility] Sodium levelOrdered By: Ketan Agee on 03-22-2025 Sodium [Moles/Vol] 133 mmol/L 133-145 [facility] Syphilis Antibodieson 2024 Syphilis Abs Non-Reactive Normal Nonreactive [facility] Comment on above: Performed By: #### B TS, L3890.6301, L509.8002, L509.4006, L501.9985, L3890.6102, L500.4050, L3890.6006, L100.0100, L900.0098 ####[facility] [address] [place], [place], [address] Total proteinOrdered By: Cong joan Sweta on 03-22-2025 Protein [Mass/Vol] 6.7 g/dL 5.9-8.4 [facility] Type AND Screenon 03-22-2025 ABO and Rh group Nom (Bld) Blood group A Rh(D) negative Normal [facility] Comment on above: Order Comment: PN Performed By: #### B TS, L3890.6301, L509.8002, L509.4006, L501.9985, L3890.6102, L500.4050, L3890.6006, L100.0100, L900.0098 ####[facility] [address] [place], [place], [address] White blood cell (WBC) count Ordered By: Comfort Sweta on 03-22-2025 WBC (Bld) [#/Vol] 7.4 10*3/uL 4.4-11.0 [facility] PAP IG HPV APTIMA 16/18,45on 03-10-2025 ADEQ Comment Normal . [facility] Comment on above: Order Comment: Speci men Comment: [id number] Comment: No. of containers..01 ThinPrep Vial Result Comment: Sati sfactory for evaluation. Endocervical and/or squamous metaplastic cells (endocervical component) are present. Performed By: #### L 7000.1800, L501.0900, M100.2200, L7400.0280 ####[facility] [address] [place], [address] COMM . Normal . [facility] Comment on above: Order Comment: Speci men Comment: [id number] Comment: No. of containers..01 ThinPrep Vial Performed By: #### L 7000.1800, L501.0900, M100.2200, L7400.0280 ####[facility] [address] [place], [address] COMMENT Comment Normal . [facility] Comment on above: Order Comment: Speci men Comment: [id number] Comment: No. of containers..01 ThinPrep Vial Result Comment: This liquid based ThinPrep(R) pap test was screened with the use of an image guided system. Performed By: #### L 7000.1800, L501.0900, M100.2200, L7400.0280 ####[facility] [address] [place], [address] DIAG Comment Normal . [facility] Comment on above: Order Comment: Asheri men Comment: [id number] Comment: No. of containers..01 ThinPrep Vial Result Comment: NEGA TIVE FOR INTRAEPITHELIAL LESION OR MALIGNANCY. Performed By: #### L 7000.1800, L501.0900, M100.2200, L7400.0280 ####[facility] [address] [place], [address] HPV APTIMA, HR Negative Normal Negative [facility] Comment on above: Order Comment: Speci men Comment: [id number] Comment: No. of containers..01 ThinPrep Vial Result Comment: This nucleic acid amplification test detects fourteen high- risk HPV types (16,18,31,33,35,39,45,51,52,56,58,59,66,68) without differentiation. Performed By: #### L 7000.1800, L501.0900, M100.2200, L7400.0280 ####[facility] [address] [place], [place], [id number] HPV Shagufta Rfx Comment Normal . [facility] Comment on above: Order Comment: Speci men Comment: [id number] Comment: No. of containers..01 ThinPrep Vial Result Comment: Crit eria not met, HPV Genotype not performed. Performed at: - [address] [id number] Aquatics Assistant Department Head: Radha Valentino MD, Phone: [phone] Performed at: = - [address] [id number] Aquatics Assistant Department Head: Radha Valentino MD, Phone: [phone] Performed By: #### L 7000.1800, L501.0900, M100.2200, L7400.0280 ####[facility] [address] [place], [place], [id number] PAPSMR Comment Normal . [facility] Comment on above: Order Comment: Speci men Comment: [id number] Comment: No. of containers..01 ThinPrep Vial Result Comment: The Pap smear is a screening test designed to aid in the detection of premalignant and malignant conditions of the uterine cervix. It is not a diagnostic procedure and should not be used as the sole means of detecting cervical cancer. Both false-positive and false-negative reports do occur. Performed By: #### L 7000.1800, L501.0900, M100.2200, L7400.0280 ####[facility] [address] [place], [place], [id number] PERFORM Comment Normal . [facility] Comment on above: Order Comment: Speci men Comment: [id number] Comment: No. of containers..01 ThinPrep Vial Result Comment: Lynn yl Edilberto, Director Revenue (ASCP) Performed By: #### L 7000.1800, L501.0900, M100.2200, L7400.0280 ####[facility] [address] [place], [address] Urine Cultureon 03-10-2025 [facility] Mixed Gram Positive Organisms Onset Count 25,000-50,000 MIXC Mixed contaminants. Submit a new specimen if indicated. Normal [facility] Comment on above: Performed By: #### L 7000.1800, L501.0900, M100.2200, L7400.0280 ####[facility] [address] [place], [address] Chlamydia/GC PHUONG aptimaon CHLAMY,NUC ACID Negative Normal Negative [facility] Comment on above: Performed By: #### L 7000.1800, L501.0900, M100.2200, L7400.0280 ####[facility] [address] [place], [address] GC BY NUC ACID Negative Normal Negative [facility] Comment on above: Result Comment: Perf ormed at: =[address] [id number] Aquatics Assistant Department Head: Radha Valentino MD, Phone: [phone] Performed By: #### L 7000.1800, L501.0900, M100.2200, L7400.0280 ####[facility] [address] [place], [address] Cervical or vaginal specimen microscopic examination by liquid based cytology (reportOrdered By: Comfort Agee on 03-07-2025 Cytology report Cyto stain.thin prep Doc (Cvx/Vag) Comment . [facility] Comment on above: Criteria not met, HP V Genotype not performed.Performed at: [facility] [address] [id number] Director: Radha Valentino MD, Phone: [phone] at: =[facility] [address] [id number] Director: Radha Valentino MD, Phone: [phone] Cervical or vagninal specime n microscopic examination by cytology stain (reported asOrdered By: Comfort Agee on 03-07-2025 Cytology report Cyto stain Doc (Cvx/Vag) Comment . [facility] Comment on above: The Pap smear is a s creening test designed to aid in thedetection of premalignant and malignant conditions of theuterine cervix. It is not a diagnostic procedure andshould not be used as the sole means of detecting cervicalcancer. Both false-positive and false-negative reports dooccur. Chlamydia trachomatis rRNA d etection by probe and target amplification methodOrdered By: Comfort Agee on 03-07-2025 C. trachomatis rRNA PHUONG+probe Ql (Unsp spec) Negative Negative [facility] Detection in cervical specim en of any of human papilloma virus (HPV) 16, 18, 31, 33,Ordered By: Comfort Agee on 03-07-2025 HPV 16+18+31+33+35+39+45+51+ 52+56+58+59+66+68 DNA Probe+sig amp Ql (Cvx) Negative Negative [facility] Comment on above: This nucleic acid am plification test detects fourteen high-risk HPV types (16,18,31,33,35,39,45,51,52,56,58,59,66,68)without differentiation. Laboratory - CytologyOrdered By: Comfort Agee on 03-07-2025 Director Revenue Cyto stain Nom (Cvx/Vag) [ID] Comment . [facility] Comment on above: Jane Casanova, Cyto logist (ASCP) Laboratory - Miscellaneous t estsOrdered By: Comfort Agee on 03-07-2025 Service comment (Unsp spec) [Interp] . . [facility] Neisseria gonorrhoeae nuclei c acid detection by amplified probe techniqueOrdered By: Comfort Agee on 03-07-2025 N. gonorrhoeae DNA PHUONG+probe Ql (Unsp spec) Negative Negative [facility] Comment on above: Performed at: =G - [address] [id number] Director: Radha Valentino MD, Phone: [phone] No Panel InformationOrdered By: Comfort Agee on 03-07-2025 Pap Smear Specimen Adequacy Comment . [facility] Comment on above: Satisfactory for tano luation. Endocervical and/or squamous metaplasticcells (endocervical component) are present. Chainstitch Seat Joiner Office Visit Reporton 03-07-2025 Chainstitch Seat Joiner Office Visit Report [facility] [address], [address] [place] [address] OFFICE VISIT Date of Service: 03/07/25 MR#: [id number] Acct: [id number] Name: CHERYL WOOD Rep #: [id number] : 1990 Provider: Dr. Comfort jc MD Age/Sex: 34/F Location: [facility] Status: Signed Intake Vital Signs 03/04/25 16:28 03/07/25 15:56 03/07/25 16:01 Height 5 ft 9 in 5 ft 9 in 5 ft 9 in Weight: 296 lb 1 oz BMI 43.7 BP 136/88 H Intake Visit Reasons: NOB LMP 7/3 LEIDY 4/9 *Per 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 Required: No Is patient in pain?: No Feel stressed/tense/nervo us/anxious/difficult y sleeping: not at all Allergies minocycline Adverse Reaction (Severe, Verified 03/07/25 15:56) Hives Medications ???Medication ???Instructions ???Recorded ???Confirmed ???Type albuterol sulfate 90 mcg/actuation 2 puff inhalation Q6H PRN 03/07/25 History aerosol inhaler mometasone-formotero l HFA 200 2 puff inhalation BID 02/24/2303/23 History mcg-5 mcg/actuation aerosol inhaler (Dulera) choline 110 mg PO QDAY 03/07/25 03/07/25 H istory multivitamin no.47-iron fum 27 cap PO 03/07/25 03/07/25 History mg-folate no.1 1 mg-dha 300 mg capsule (PNV-DHA) Last Menstrual Period: 12/29/24 Zika: Zika virus screening: Negative PFSH PFSH Medical History (Updated 03/07/25 @ 16:[address] Comfort Agee MD) Polyneuropathy Hidradenitis suppurativa Asthma Headache Obesity Vertigo Peripheral vestibulopathy Fatigue delivery delivered Surgical History (Updated 03/07/25 @ 16:[address] Comfort Agee MD) History of third molar tooth extraction [...] No current occupational status: employed current occupation: [employer] current occupational exposures/hazards: No pets and animals: Yes (4 dogs, 2 Cats Avoid litterbox) pets and animals: cat(s) and dog(s) history of recent travel: No sexually [...] physical activity do you participate in: none tamir/buddhist: None seatbelt use: always do you feel safe at home: Yes additional social history: [employer] work History 3 Elective abortions Hx Para 2 Spontaneous abortions Hx # Term Pregnancies Ectopic pregnancies Hx # Pregnancies Multiple births # of living children 2 Past Pregnancies Del. Date Name GA/Weeks Outcome Route Bth Weight Gen Labor Lgth Anesthesia Del Locatn Provider FOB 06/15/15 [facility]stonangel[facility] 40 live - full term 8#9oz Female epidural [facility] Seals Titi 12/30/17 Nadine 27 live - 2#1oz [facility]: [facility]15 Last Updated by: Haley [...] Rhogam: [] LARC form signed: [] Problem l (more content not included)... Normal [facility] Protein+Creatinine Ratio,Uri neon 03-07-2025 PROT:CRE RATIO 40 mg/g CRE Normal 0-200 [facility] Comment on above: Performed By: #### L 7000.1800, L501.0900, M100.2200, L7400.0280 ####[facility] [id number] [place], [address] UR CREAT 250.00 mg/dL High 28.00-217.00 [facility] Comment on above: Performed By: #### L 7000.1800, L501.0900, M100.2200, L7400.0280 ####[facility] [id number] [place], [address] Random urine creatinine sameer urement (mass/volume)Ordered By: Comfort Agee on 03-07-2025 Creatinine Unsp time (U) [Mass/Vol] 250.00 mg/dL High 28.00-217.00 [facility] Urine cultureOrdered By: Cong Agee on 03-07-2025 Bacteria identified Cx Nom (U) Positive Abnormal [facility] Urine protein measurement (m ass/volume)Ordered By: Comfort Agee on 03-07-2025 Protein (U) [Mass/Vol] 10.0 mg/dL Normal 0.0-12.0 [facility] Comment on above: Performed By: #### L 7000.1800, L501.0900, M100.2200, L7400.0280 ####[facility] [id number] [place], [address] Urine protein/creatinine mas s ratioOrdered By: Comfort Agee on 03-07-2025 Protein/Creatinine (U) [Mass ratio] 40 mg/g CRE 0-200 [facility] Emergency Department Summary on 03-04-2025 Emergency Department Summary [facility] Medical Records Department [address] [place] [address] Emergency Department Summary 03/04/25 MR#: [id number] Acct: [id number] Name: CHERYL WOOD Rep #: [id number] : 1990 34 From: Tremayne Brice DO PCP: Care Physician,No Primary Status:REG ER Location: ED HPI HPI - Female History of Present Illness Chief Complaint: Narrative Narrative: Chief complaint and HPI: 34-year-old female who is G3, P2 and 8.5 weeks [facility]. Patient states her previous pregnancies were . Last she followed with maternal- medicine given she had placenta previa with abruption and premature delivery. She states she has yet to follow-up with an INSTRUMENTATION AND CONTROL TECHNICIAN. States she called on Thursday to be established with [place]. Patient states that she has had a ultrasound at the care center which showed a subchorionic hematoma. She states on she had intercourse in which she had some light vaginal bleeding which has since resolved. She followed up with the care center who told her it was likely secondary to the subchorionic hematoma and to be established with an INSTRUMENTATION AND CONTROL TECHNICIAN. Patient states she was thinking about it [...] intact Psych: Cooperative, appropriate mood and affect PFSH PFSH Medical History Fatigue delivery delivered Home Medications ???Medication ???Instructions ???Recorded ???Last Taken ???Type Lactobacillus acidophilus 1 1,000 mmu cells PO DAILY 02/24/23 Unknown History billion cell capsule (Probiotic Gold Acidophilus) albuterol sulfate 90 mcg/actuation 2 puff inhalation Q6H PRN Unknown History aerosol inhaler flurbiprofen 100 mg tablet 100 mg PO TID PRN pain #90 tabs Unknown Rx mometasone-formotero l HFA 200 2 puff inhalation BID 02/24/23 [...] she has yet to follow-up with an INSTRUMENTATION AND CONTROL TECHNICIAN. States she called on Thursday to be established with [place]. Patient states that she has had a ultrasound at the care center which showed a subchorionic hematoma. She states on she had intercourse in which she had some light vaginal bleeding which has since resolved. She followed up with the care center who told her it was likely secondary to the subchorionic hematoma and to be established with an INSTRUMENTATION AND CONTROL TECHNICIAN. Patient states she was thinking about it today and realize she has Rh- and presented for possible RhoGAM injection. She currently denies any symptoms such as vaginal bleeding or pelvic pain. On presentation, patie (more content not included)... Normal [facility] Emergency Department Summary on 09-21-2024 Emergency Department Summary [facility] Medical Records Department [address] [place] [address] Emergency Department Summary 09/21/24 MR#: [id number] Acct: [id number] Name: CHERYL WOOD Angelica Rep #: [id number] : 1990 34 From: Abhi Cooper DO [...] know when her last tetanus shot was. [facility] Medical History Fatigue delivery delivered Home Medications ???Medication ???Instructions ???Recorded ???Last Taken ???Type Lactobacillus acidophilus 1 1,000 mmu cells PO DAILY 02/24/23 Unknown History billion cell capsule (Probiotic Gold Acidophilus) albuterol sulfate 90 mcg/actuation 2 puff inhalation Q6H PRN Unknown History aerosol inhaler flurbiprofen 100 mg tablet 100 mg PO TID PRN pain #90 tabs Unknown Rx mometasone-formotero l HFA 200 2 puff inhalation BID 02/24/23 [...] Patient follow commands that she was at [facility] year is 2024. Sensation grossly intact in [...] stable co (more content not included)... Normal [facility] 37on 04-29-2024 37 Pick 2-4 of these [...] difficult as her core strength increases. Normal [facility] Office Visiton 04-29-2024 Follow-up visit [id number] Cheryl Wood 1990 F Date Provider Department Center 04/29/2024 [id number] IZQUIERDO [facility] W[facility] None Family History Problem Relation Age of Onset No Known Problems Mother Comments: ([employer]ELTER at [facility]) Heart disease Father COPD Father Comments: [...] Paternal Grandmother Paternal Grandfather Alive Level of Service:22135 IN OFFICE/OUTPATIENT NEW LOW MDM 30 MINUTES Reason for Visit and Comments: New Patient [542] Hip Pain [234403] - Left Normal [facility] Progress Noteon 04-29-2024 Progress Note [facility] - [place] [address] [place] [address] [place] [address] Dept: [phone] Dept Chief Complaint Patient presents with New [...] use and sitting on the ground, sitting nigerian style, getting on the bed with one leg with one leg bent Relieving factor(s): diclofenac Timing: depends on how she is sitting Imaging to date: X-ray April 2024 Treatment to date: PT/OT/HEP: no but she has for her back and shoulder Ice: no Heat: no Medications: Tylenol: no NSAIDs: yes, Ibuprofen/Motrin/Adv il and Diclofenac/Voltaren, helpful Oral steroids: no Muscle relaxants: flexeril, and robaxin but she hasn't taken it Nerve medications: no Targeted injections: none Assistive devices: none Prior surgery: no 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 Normal [facility] 37on 04-22-2024 37 [facility] at [address] [place] [address] Call central scheduling to schedule new patient appointment [phone] Normal [facility] Office Visiton 04-22-2024 Follow-up visit [id number] Cheryl Wood 1990 F Date Provider Department Center 04/22/2024 [id number] CASTRO [facility] OR None Family History Problem Relation Age of Onset No Known Problems Mother Comments: ([employer] at [facility]) Heart disease Father COPD Father Comments: [...] Paternal Grandmother Paternal Grandfather Alive Level of Service:49702 IN OFFICE/OUTPATIENT NEW MODERATE MDM 45 MINUTES Reason for Visit and Comments: Back Pain [12] - TECHNICAL INSTRUCTOR Lumbar Pain Normal [facility] Progress Noteon 04-22-2024 Progress Note [facility] [place] [address] [facility] [address] [place] [id number] Dept: [phone] Dept Cheryl Wood 1990 [id number] 04/22/2024 Problem List: Lumbar pain Lumbar radiculopathy, left Lumbar spondylosis Lumbar degenerative disc disease Left hip pain (M54.50) Lumbar pain (M54.16) Lumbar radiculopathy (M47.816) Lumbar spondylosis (M51.362) Degeneration of intervertebral disc of lumbar region with discogenic back pain and lower extremity pain (M25.552) Left hip pain Chief Complaint 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 30 tablet 5 No current facility-administere d medications for this visit. 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 Normal [facility] XR LUMBAR SPINE 4-5 VIEWon 1 XR LUMBAR SPINE 4-5 VIEW There is no aor tic calcification noted. The bilateral hip joint spaces [...] no listhesis noted on flexion/extension radiographs. Normal [facility] ED Nursing Noteon 04-16-2024 ED Nursing Note Clarified with Gissel LUNDBERG that 60mg toradol to be given and dosage was verified Laura Mack RN 04/16/24 1810 Normal [facility] ED Nursing Note Pt c.o lower back pain radiating down L leg, states the pain worsened when she opened a door today Normal [facility] ED Provider Noteon ED Provider Note [facility] ED eMERGENCY dEPARTMENT eNCOUnter Pt Name: Cheryl Wood Birthdate 1990 Date of evaluation: 04/16/2024 Provider: Gissel Hernandez PA-C CHIEF COMPLAINT Chief Complaint Patient presents with Back Pain HISTORY OF PRESENT ILLNESS (Location/Symptom, Timing/Onset,Context /Setting, Quality, Duration, Modifying Factors, Severity) Note limiting [...] retention. No saddle paresthesias. She tried some fqwh-old-baccyfa medications with no relief of her symptoms. 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 Overall Financial Resource Strain (CARDIA) Difficulty of Paying Living Expenses: Not hard at all Food Insecurity: No Food Insecurity (03/21/2022) Received from [facility] Hunger Vital Sign Worried About Running Out of Food in the Last Year: Never true Ran Out of Food in the Last Year: Never true Transportation Needs: N (more content not included)... Normal [facility] Basophil percentageOrdered B y: Herberth Steele on 06-26-2023 Chloride [Moles/Vol] 108 mmol/L 98-107 [facility] Glucose [Mass/Vol] 88 mg/dL 74-106 [facility] Potassium [Moles/Vol] 3.8 mmol/L 3.5-5.1 [facility] Sodium [Moles/Vol] 136 mmol/L 136-145 [facility] Laboratory - Chemistry and C hemistry - challengeOrdered By: Herberth Steele on 06-26-2023 CO2 [Moles/Vol] 23.0 mmol/L 21.0-32.0 [facility] Urea nitrogen/Creatinine [Mass ratio] 14.4 mg/mg 10-20 [facility] No Panel InformationOrdered By: Herberth Steele on 06-26-2023 Estimated GFR (MDRD) Amer 84 mL/min >60 [facility] Comment on above: GFR Calc Estimated GFR (MDRD) Non-Af Amer 70 mL/min >60 [facility] Comment on above: Non- GFR Calc Serum or plasma calcium sameer urement (mass/volume)Ordered By: Herberth Steele on 06-26-2023 Calcium [Mass/Vol] 9.0 mg/dL 8.5-10.1 [facility] Serum or plasma creatinine m easurement (mass/volume)Ordered By: Herberth Steele on 06-26-2023 Creatinine [Mass/Vol] 0.97 mg/dL 0.55-1.02 [facility] Comment on above: The validity of the calculated GFR & GFRAA in patients over 70 years has not been determined. Clinical correlation is essential. Serum or plasma urea nitroge n measurement (mass/volume)Ordered By: Herberth Steele on 06-26-2023 Urea nitrogen [Mass/Vol] 14 mg/dL 7-18 [facility] Thin prep Papanicolaou smear with manual screeningOrdered By: Herberth Steele on 06-26-2023 Thin prep Papanicolaou smear with manual screening 5 5-15 [facility] Basophil percentageOrdered B y: Herberth Steele on 03-27-2023 Creatinine [Mass/Vol] 1.2 mg/dL 0.55-1.02 [facility] Laboratory - Chemistry and C hemistry - challengeOrdered By: Herberth Steele on 03-27-2023 GFR/1.73 sq M.predicted among non-blacks MDRD (S/P/Bld) [Vol rate/Area] 57.0000 mL/min/{1.73_m2} >60 [facility] Basophil percentageOrdered B y: Herberth Steele on 02-27-2023 Bilirubin [Mass/Vol] 0.70 mg/dL 0.20-1.00 [facility] Comment on above: For patients on eltr ombopag therapy, use of Dimension [place] TBIL is not recommended. Chloride [Moles/Vol] 105 mmol/L 98-107 [facility] Glucose [Mass/Vol] 101 mg/dL 74-106 [facility] Comment on above: Fasting Glucose resu lt from 100 to 125 mg/dL suggests IMPAIRED HOMEOSTASIS per A.D.A. criteria. Potassium [Moles/Vol] 4.1 mmol/L 3.5-5.1 [facility] Protein [Mass/Vol] 7.4 g/dL 6.4-8.2 [facility] Sodium [Moles/Vol] 136 mmol/L 136-145 [facility] WBC (Bld) [#/Vol] 7.7 10*3/uL 4.4-11.0 [facility] Blood erythrocytes count (nu mber/volume)Ordered By: Herberthfabiano Steele on 02-27-2023 RBC (Bld) [#/Vol] 4.70 10*6/uL 4.2-5.4 [facility] Blood hemoglobin measurement (mass/volume)Ordered By: Herberth Steele on 02-27-2023 Hemoglobin (Bld) [Mass/Vol] 15.0 g/dL 12.0-15.0 [facility] Blood platelet mean volumeOr dered By: Herberth Steele on 02-27-2023 Platelet mean volume (Bld) [Entitic vol] 10.3 fL 6.2-12.0 [facility] Determination of erythrocyte mean corpuscular volume (MCV)Ordered By: Herberth Steele on 02-27-2023 MCV (RBC) [Entitic vol] 92.3 fL 81-99 [facility] Hematocrit Auto (Bld) [Volum e fraction]Ordered By: Herberth Steele on 02-27-2023 Hematocrit (Bld) [Volume fraction] 43.4 % 37-47 [facility] Laboratory - Chemistry and C hemistry - challengeOrdered By: Herberthfabiano Steele on 02-27-2023 ALP [Catalytic activity/Vol] 78 U/L 45-117 [facility] ALT [Catalytic activity/Vol] 24 U/L 13-56 [facility] CO2 [Moles/Vol] 23.0 mmol/L 21.0-32.0 [facility] Cobalamin (Vitamin B12) [Mass/Vol] 243 pg/mL 211-911 [facility] Globulin (S) [Mass/Vol] 3.7 g/dL 2.2-4.2 [facility] Urea nitrogen/Creatinine [Mass ratio] 14.2 mg/mg 10-20 [facility] Laboratory - Hematology and Cell countsOrdered By: Herberth Steele on 02-27-2023 Erythrocyte distribution width (RBC) [Entitic vol] 38.7 fL 35.1-43.9 [facility] Erythrocyte distribution width (RBC) [Ratio] 11.3 % 11.6-14.6 [facility] MCH (RBC) [Entitic mass] 31.9 pg 27.0-32.0 [facility] MCHC Auto (RBC) [Mass/Vol]Or dered By: Herberth Steele on 02-27-2023 MCHC (RBC) [Mass/Vol] 34.6 g/dL 32-36 [facility] No Panel InformationOrdered By: Herberth Steele on 02-27-2023 Estimated GFR (MDRD) Amer 71 mL/min >60 [facility] Comment on above: GFR Calc Estimated GFR (MDRD) Non-Af Amer 59 mL/min >60 [facility] Comment on above: Non- GFR Calc Free Lambda Light Chains, Quant Not Reportable [facility] Thyroid Stimulating Hormone (TSH) 1.32 uIU/mL 0.358-3.74 [facility] Whole Blood Vitamin B1 Level 111.8 nmol/L 66.5-200.0 [facility] Comment on above: Performed at: - [address] [id number] Director: Jacy Cook MD, Phone: [phone] Platelets bldOrdered By: Maxi Steele on 02-27-2023 Platelets (Bld) [#/Vol] 310 10*3/uL 150-450 [facility] Serum immunoglobulin kappa l ight chains/immunoglobulin lambda light chains mass ratioOrdered By: Herberth Steele on 02-27-2023 Immunoglobulin light chains.kappa/Immunoglobu arslan light chains.lambda (S) [Mass ratio] Not Reportable [facility] Serum or plasma albumin sameer urement (mass/volume)Ordered By: Herberth Steele on 02-27-2023 Albumin [Mass/Vol] 3.7 g/dL 3.2-5.0 [facility] Serum or plasma albumin/glob ulin mass ratioOrdered By: [facility] on 02-27-2023 Albumin/Globulin [Mass ratio] 1.0 {ratio} 0.9-2.4 [facility] Serum or plasma calcium sameer urement (mass/volume)Ordered By: [facility] on 02-27-2023 Calcium [Mass/Vol] 8.9 mg/dL 8.5-10.1 [facility] Serum or plasma creatinine m easurement (mass/volume)Ordered By: [facility] on 02-27-2023 Creatinine [Mass/Vol] 1.13 mg/dL 0.55-1.02 [facility] Comment on above: The validity of the calculated GFR & GFRAA in patients over 70 years has not been determined. Clinical correlation is essential. Serum or plasma folate measu rement (mass/volume)Ordered By: [facility] on 02-27-2023 Folate [Mass/Vol] 20.90 ng/mL 3.1-55.4 [facility] Serum or plasma immunoglobul in kappa light chains measurement (mass/volume)Ordered By: [facility] on 02-27-2023 Immunoglobulin light chains.kappa [Mass/Vol] See comment [facility] Comment on above: TEST RESULTS LIMITSF ree K+L Lt Chains,Qn,SFree [place] Lt Chains,S 15.4 mg/L 3.3-19.4Free Lambda Lt Chains,S 15.9 mg/L 5.7-26.3Kappa/Lambda Ratio,S 0.97 0.26-1.65 TESTING PERFORMED AT [facility]. ORIGINAL REPORT ON FILE IN LAB CONTAINS ADDITIONAL TEST SITE INFORMATION. Serum or plasma urea nitroge n measurement (mass/volume)Ordered By: Herberth Steele on 02-27-2023 Urea nitrogen [Mass/Vol] 16 mg/dL 7-18 [facility] Thin prep Papanicolaou smear with manual screeningOrdered By: Herberth Steele on 02-27-2023 Thin prep Papanicolaou smear with manual screening 17 U/L 15-37 [facility] Thin prep Papanicolaou smear with manual screening 8 5-15 [facility] Comprehensive metabolic 1998 panelon 08-02-2022 Albumin [Mass/Vol] 4.4 g/dL 3.6 - 5.1 g/dL [facility] ALP [Catalytic activity/Vol] 73 U/L 31 - 125 U/L [facility] ALT [Catalytic activity/Vol] 15 U/L 6 - 29 U/L [facility] Anion gap [Moles/Vol] 6 mmol/L Low [facility] AST [Catalytic activity/Vol] 19 U/L 10 - 30 U/L [facility] Bilirubin [Mass/Vol] 0.6 mg/dL 0.2 - 1 .2 mg/dL [facility] Calcium [Mass/Vol] 9.5 mg/dL 8.6 - 10. 2 mg/dL [facility] Chloride [Moles/Vol] 101 mmol/L 98 - 11 0 mmol/L [facility] CO2 [Moles/Vol] 28 mmol/L 20 - 32 mmol/L [facility] Creatinine [Mass/Vol] 1.11 mg/dL High 0.50 - 0.97 mg/dL [facility] GFR/1.73 sq M.predicted among non-blacks MDRD (S/P/Bld) [Vol rate/Area] 67 mL/min/{1.73_m2} > OR = 60 mL/min/1.73m2 [facility] Comment on above: The eGFR is based on the CKD-EPI 2020 equation. To calculate the new eGFR from a previous Creatinine or Cystatin C result, go to https://www.kidney.org/professionals/ kdoqi/gfr%5Fcalculator Glucose [Mass/Vol] 92 mg/dL 65 - 99 mg/dL [facility] Comment on above: Fasting reference interval Interpretation and review of laboratory results Abnormal [facility] Potassium [Moles/Vol] 4.9 mmol/L 3.5 - 5.3 mmol/L [facility] Protein [Mass/Vol] 7.3 g/dL 6.1 - 8.1 g/dL [facility] Sodium [Moles/Vol] 135 mmol/L 135 - 146 mmol/L [facility] Urea nitrogen [Mass/Vol] 18 mg/dL 7 - 25 mg/d L [facility] Hemoglobin A1con 08-02-2022 HbA1c (Bld) [Mass fraction] 4.9 % NINF [facility] Comment on above: For the purpose of s creening for the presence of diabetes: <5.7% Consistent with the absence of diabetes 5.7-6.4% Consistent with increased risk for diabetes (prediabetes) > or =6.5% Consistent with diabetes This assay result is consistent with a decreased risk of diabetes. Currently, no consensus exists regarding use of hemoglobin A1c for diagnosis of diabetes in children. According to [place] Diabetes Association (ADA) guidelines, hemoglobin A1c <7.0% represents optimal control in non- diabetic patients. Different metrics may apply to specific patient populations. Standards of Medical Care in Diabetes(ADA). No Panel Informationon 08-02 [facility] Complete PFT pre and post br onchodilatorOrdered By: Nelson Machado on 06-27-2022 [facility] CR Chest PA/LATon 03-21-2022 CR Chest PA/LAT Patient Name: CHERYL WOOD Diagnostic Radiology ACCESSION EXAM DATE/TIME PROCEDURE ORDERING PROVIDER [id number] 03/21/2022 15:22 EDT CR Chest PA and LAT DO FISCHER EUGENE F. CPT code 18512 Reason For Exam (CR Chest PA and [...] Transcribed Date and Time: 03/22/2022 9:17 Normal [facility] HCG,Urine Qualon 06-03-2021 Beta HCG ( test) Ql (U) Negative Normal Negative [facility] Comment on above: Result Comment: Kelton paz note: Very dilute urine specimens, as indicated by a low specific gravity, may not contain telephone service representative levels of hCG. If is still suspected, a first morning urine specimen should be collected 48 hours later and tested. is the most common reason for HCG in urine, although choriocarcinoma, hydatidiform mole, and certain nontropho- blastic malignancies also result in detectable urinary HCG levels. Sensitivity = 20mIU/mL. Performed By: #### H CGUR #### [facility] [address] [place] [address] Basic Metabolic Panelon 12-0 Anion gap [Moles/Vol] 9 mmol/L Normal 3-13 [facility] Comment on above: Performed By: #### H GHCT BMP3M #### [facility] [address] [place] [address] Calcium [Mass/Vol] 9.1 mg/dL Normal 8.4-10.4 [facility] Comment on above: Performed By: #### H GHCT BMP3M #### [facility] [address] [place] [address] CO2 [Moles/Vol] 24 mmol/L Normal 22-30 [facility] Comment on above: Performed By: #### H GHCT, BMP3M #### [facility] [address] [place] [address] Glucose [Mass/Vol] 95 mg/dL Normal 70-100 [facility] Comment on above: Performed By: #### H GHCT, BMP3M #### [facility] [address] [place] [address] Urea nitrogen [Mass/Vol] 20 mg/dL Normal 9-20 [facility] Comment on above: Performed By: #### H GHCT, BMP3M #### [facility] [address] [place] [address] Creatinine [Mass/Vol] 0.87 mg/dL Normal 0.52-1.25 [facility] Comment on above: Performed By: #### H JOEL BMP3M #### [facility] [address] [place] [address] GFR/1.73 sq M.predicted among blacks MDRD (S/P/Bld) [Vol rate/Area] mL/min/{1.73_m2} Normal >60 [facility] Comment on above: Performed By: #### H J CARLOSCT BMP3M #### [facility] [address] [place], [place] GFR/1.73 sq M.predicted among non-blacks MDRD (S/P/Bld) [Vol rate/Area] 88.2 mL/min/{1.73_m2} Normal >60 [facility] Comment on above: Result Comment: KDIG [...] tubular creatinine secretion. Performed By: #### H GHCT BMP3M #### [facility] [address], [place] Potassium [Moles/Vol] 4.5 mmol/L Normal 3.5-5.1 [facility] Comment on above: Performed By: #### H JOEL BMP3M #### [facility] [address], [place] Sodium [Moles/Vol] 136 mmol/L Normal 135-145 [facility] Comment on above: Performed By: #### H GHCT, BMP3M #### [facility] [address] [place] [address] Chloride [Moles/Vol] 103 mmol/L Normal 98-107 [facility] Comment on above: Performed By: #### H GHCT, BMP3M #### [facility] [address] [place] [address] Hemoglobin AND Hematocriton 05-31-2021 Hematocrit (Bld) [Volume fraction] 40.6 % Normal 35.0-47.0 [facility] Comment on above: Performed By: #### H GHCT, BMP3M #### [facility] [address] [place] [address] Hemoglobin (Bld) [Mass/Vol] 14.0 g/dL Normal 11.7-16.0 [facility] Comment on above: Performed By: #### H J CARLOSCT, BMP3M #### [place] [address] [place], [place] ARTHR/ASP/INJ MAJOR JT/BU RSA RT WO USOrdered By: Pinky Romero on 10-29-2020 Patient Name: CHERYL WOOD Fluoroscopy ACCESSION EXAM DATE/TIME PROCEDURE ORDERING PROVIDER [id number] 10/29/2020 13:09 EDT RF Arthrogram Aspir Bhupinder ROMERO MD, PINKY Barrett Jt Right CPT code 17323 [id number] Reason For Exam (RF Arthrogram Aspir Inj Arnold Jt Right) instability of right shoulder joint Report Examination: Fluoroscopic guided right shoulder arthrogram and gadolinium injection Clinical Indication: Instability Comparison: None Findings: Informed written consent was obtained from the patient after the risks, benefits, and alternatives to diagnostic joint injection were adequately explained and all questions were answered. This was explained by Dr. Felpie Roger. Patient was placed in supine position. [...] are intact without significant tendinopathy or high-grade partial/full-thickne ss tear. The intra and extra-articular portions of the long head biceps tendon are unremarkable. The distal biceps tendon lies within the bicipital groove. The acromioclavicular joint is intact without evidence of a [place] joint effusion. Slight downsloping of the distal-lateral [...] Phone: [facility], [facility] Incoming Radiology Results From [facility] - 10/29/2020 2:21 PM EDT Patient Name: CHERYL WOOD Located Within [facility]#: [id number] Fluoroscopy ACCESSION EXAM DATE/TIME PROCEDURE ORDERING PROVIDER [id number] 10/29/2020 13:09 EDT RF Arthrogram Aspir Inj MD NICK, [facility] Arnold Jt Right CPT code 96105 [id number] Reason For Exam (RF Arthrogram Aspir Inj [...] are intact without significant tendinopathy or high-grade partial/full-thickne ss tear. The intra and extra-articular portions of the long head biceps tendon are unremarkable. The distal biceps tendon lies within the bicipital groove. The acromioclavicular joint is intact without evidence of a [place] joint effusion. Slight downsloping of the distal-lateral [...] Romero on 10-29-2020 Patient Name: CHERYL WOOD Magnetic Resonance Imaging ACCESSION EXAM DATE/TIME PROCEDURE ORDERING PROVIDER [id number] 10/29/2020 13:53 EDT MRI Up Ext Joint w/ MD NICK, PINKY Contrast Right CPT code 12008 Reason For Exam (MRI Up Ext Joint [...] are intact without significant tendinopathy or high-grade partial/full-thickne ss tear. The intra and extra-articular portions of the long head biceps tendon are unremarkable. The distal biceps tendon lies within the bicipital groove. The acromioclavicular joint is intact without evidence of a [place] joint effusion. Slight downsloping of the distal-lateral [...] Phone: [facility], [facility] Incoming Radiology Results From [facility] - 10/29/2020 2:21 PM EDT [facility]: [id number] Imaging ACCESSION EXAM DATE/TIME PROCEDURE ORDERING PROVIDER [id number] 10/29/2020 13:53 EDT MRI Up Ext Joint w/ MD NICK, [facility] Contrast Right CPT code 82542 Reason For Exam (MRI Up Ext Joint [...] are intact without significant tendinopathy or high-grade partial/full-thickne ss tear. The intra and extra-articular portions of the long head biceps tendon are unremarkable. The distal biceps tendon lies within the bicipital groove. The acromioclavicular joint is intact without evidence of a [place] joint effusion. Slight downsloping of the distal-lateral [...] w/ Contrast Right [facility]: [id number] Magnetic Resonance Imaging ACCESSION EXAM DATE/TIME PROCEDURE ORDERING PROVIDER [id number] 10/29/2020 13:53 EDT MRI Up Ext Joint w/ MD NICK, PINKY Contrast Right CPT code 13677 Reason For Exam (MRI Up Ext Joint [...] are intact without significant tendinopathy or high-grade partial/full-thickne ss tear. The intra and extra-articular portions of the long head biceps tendon are unremarkable. The distal biceps tendon lies within the bicipital groove. The acromioclavicular joint is intact without evidence of a [place] joint effusion. Slight downsloping of the distal-lateral [...] Transcribed Date and Time: 10/29/2020 2:19 Normal [facility] RF Arthrogram Aspir Inj Arnold Jt Righton 10-29-2020 RF Arthrogram Aspir Inj Arnold Jt Right Patient Name: CHERYL WOOD Fluoroscopy ACCESSION EXAM DATE/TIME PROCEDURE ORDERING PROVIDER [id number] 10/29/2020 13:09 EDT RF Arthrogram Aspir Inj MD NICK, PINKY Daley Right CPT code 53774 [id number] Reason For Exam (RF Arthrogram Aspir Inj [...] are intact without significant tendinopathy or high-grade partial/full-thickne ss tear. The intra and extra-articular portions of the long head biceps tendon are unremarkable. The distal biceps tendon lies within the bicipital groove. The acromioclavicular joint is intact without evidence of a [place] joint effusion. Slight downsloping of the distal-lateral [...] Transcribed Date and Time: 10/29/2020 2:19 Normal [facility] XR Shoulder Right 2 VWon Patient Name: CHERYL WOOD Diagnostic Radiology ACCESSION EXAM DATE/TIME PROCEDURE ORDERING PROVIDER [id number] 08/09/2020 14:46 EST CR Shoulder 2+ Views MD HUSEYIN, NIURKA Sandoval Right CPT code 91920 Reason For Exam (CR Shoulder 2+ Views [...] KEVIN Transcribed Date and Time: 08/09/2020 2:58 [facility] Work Phone: [facility], [facility] Incoming Radiology Results From [facility] - 08/09/2020 2:58 PM EST [facility]: [id number] Diagnostic Radiology ACCESSION EXAM DATE/TIME PROCEDURE ORDERING PROVIDER [id number] 08/09/2020 14:46 EST CR Shoulder 2+ Views MD HUSEYIN, NIURKA Sandoval Right CPT code 05656 Reason For Exam (CR Shoulder 2+ Views [...] and Time: 08/09/2020 2:58 [facility] Work Phone: [facility] Note on 02-27-2017 [facility] Normal [facility] ([place] .Urinalysis Microscopic (AO) on 02-26-2017 UA Squam Epithelial None Seen Normal None [facility]en [facility] Comment on above: Performed By: #### U A, UAMICAO, PREGU ####Marielena [address] [place], [place] [address] UA WBC None Seen Normal None Seen [facility] ([place] Comment on above: Performed By: #### U A, UAMICAO, PREGU ####Marielena [address] [place], [place] [address] Urine, erythrocytes None Seen Normal None Seen [facility] [place] Comment on above: Performed By: #### U A, UAMICAO, PREGU ####Marielena [address] [place], [place] [address] PREGUon 02-26-2017 HCG ( test) Ql (U) Negative Normal [facility] ([place] Comment on above: Performed By: #### U A, UAMICAO, PREGU ####Marielena [address] [place] [address] test (u) int HCG not detected. Invalid Interpretation Code [facility] ([place] Comment on above: Performed By: #### U A, UAMICAO, PREGU ####Marielena [address] [place] [address] Patient Summary Documentson 02-26-2017 Patient Summary Documents Normal [facility] ([place] UAon 02-26-2017 UA Appear CLEAR Normal [facility] ([place] Comment on above: Performed By: #### U A, UAMICAO, PREGU ####Marielena [address] [place] [address] UA Blood Negative [facility] ([place] Comment on above: Performed By: #### U A, UAMICAO, PREGU ####Marielena [address] [place] [address] UA Leuk Est Negative Normal [facility] ([place] Comment on above: Performed By: #### U A, UAMICAO, PREGU ####Marielena [address] [place] [address] UA Nitrite Negative Normal [facility] ([place] Comment on above: Performed By: #### U A, UAMICAO, PREGU ####Marielena [address] [place] [address] UA pH 6.0 Normal [facility] ([place] Comment on above: Performed By: #### U A, UAMICAO, PREGU ####Marielena [address] [place] [address] UA Protein Negative [facility] ([place] Comment on above: Performed By: #### U A, UAMICAO, PREGU ####Marielena [address] [place] [address] UA Spec Grav <=1.005 Abnormal [facility] ([place] Comment on above: Performed By: #### U A, UAMICAO, PREGU ####Marielena [address] [place] [address] UA Specimen Type Clean Catch Normal [facility] ([place] Comment on above: Performed By: #### U A, UAMICAO, PREGU ####Marielena [address] [place], [place] [address] UA Urobilinogen 0.2 E.U./dL Normal [facility] ([place] Comment on above: Performed By: #### U A, UAMICAO, PREGU ####Marielena [address] [place], [place] [address] Urine, color YELLOW Normal [facility] ([place] Comment on above: Performed By: #### U A, UAMICAO, PREGU ####Marielena [address] [place] [address] Urine, glucose Negative Normal [facility] ([place] Comment on above: Performed By: #### U A, UAMICAO, PREGU ####Marielena [address] [place] [address] Urine, ketones presence Negative Normal [facility] ([place] Comment on above: Performed By: #### U A, UAMICAO, PREGU ####Marielena [address] [place], [place] [address] Urine, urobilinogen Negative [facility] Comment on above: Performed By: #### U A, UAMICAO, PREGU ####Marielena [address] [place], [place] [address] Vital Signs Date Time Vital Sign Value Performing Clinician Facility 04-06-2025 13:07-0400 Body height 175.26 cm No Primary Care Physician [facility] 04-06-2025 13:07-0400 Body mass index (BMI) [Ratio] 43.9 kg/m2 No Primary Care Physician [facility] 04-06-2025 13:07-0400 Body weight 134.88 kg No Primary Care Physician [facility] 04-06-2025 13:07-0400 Diastolic blood pressure 82 mm[Hg] No Primary Care Physician [facility] 04-06-2025 13:07-0400 Systolic blood pressure 142 mm[Hg] No Primary Care Physician [facility] 03-22-2025 14:43-0400 Body height 175.26 cm No Primary Care Physician [facility] 03-22-2025 14:43-0400 Body mass index (BMI) [Ratio] 44.4 kg/m2 No Primary Care Physician [facility] 03-22-2025 14:43-0400 Body weight 136.53 kg No Primary Care Physician [facility] 03-22-2025 14:43-0400 Diastolic blood pressure 79 mm[Hg] No Primary Care Physician [facility] 03-22-2025 14:43-0400 Systolic blood pressure 124 mm[Hg] No Primary Care Physician [facility] 03-07-2025 16:01-0400 Body height 175.26 cm No Primary Care Physician [facility] 03-07-2025 15:56-0400 Body mass index (BMI) [Ratio] 43.7 kg/m2 No Primary Care Physician [facility] 03-07-2025 15:56-0400 Body weight 134.29 kg No Primary Care Physician [facility] 03-07-2025 15:56-0400 Diastolic blood pressure 88 mm[Hg] No Primary Care Physician [facility] 03-07-2025 15:56-0400 Systolic blood pressure 136 mm[Hg] No Primary Care Physician [facility] 03-04-2025 18:19-0400 Body temperature 98.7 [degF] No Primary Care Physician [facility] 03-04-2025 18:19-0400 Diastolic blood pressure 93 mm[Hg] No Primary Care Physician [facility] 03-04-2025 18:19-0400 Heart rate 99 /min No Primary Care Physician [facility] 03-04-2025 18:19-0400 Respiratory rate 18 /min No Primary Care Physician [facility] 03-04-2025 18:19-0400 SaO2% (BldA) [Mass fraction] 100 % No Primary Care Physician [facility] 03-04-2025 18:19-0400 Systolic blood pressure 153 mm[Hg] No Primary Care Physician [facility] 03-04-2025 16:28-0400 Body height 175.26 cm No Primary Care Physician [facility] 03-04-2025 16:28-0400 Body mass index (BMI) [Ratio] 44.6 kg/m2 No Primary Care Physician [facility] 03-04-2025 16:28-0400 Body weight 136.98 kg No Primary Care Physician [facility] 10-05-2024 18:09-0400 Body temperature 96.9 [degF] Dr. Abhi Cooper DO Work Phone: 6(418)448-797844 [place] [address] 10-05-2024 18:09-0400 Diastolic blood pressure 78 mm[Hg] Dr. Abhi Cooper DO Work Phone: 2(759)288-225148 [place] [address] 10-05-2024 18:09-0400 Heart rate 68 /min Dr. Abhi Cooper DO Work Phone: 7(727)332-236348 [place] [address] 10-05-2024 18:09-0400 Respiratory rate 13 /min Dr. Abhi Cooper DO Work Phone: 4(212)157-786648 [place] [address] 10-05-2024 18:09-0400 SaO2% (BldA) [Mass fraction] 99 % Dr. Abhi Cooper DO Work Phone: 3(575)505-234948 [place] [address] 10-05-2024 18:09-0400 Systolic blood pressure 142 mm[Hg] Dr. Abhi Cooper DO Work Phone: 7(080)608-149448 [place] [address] 10-05-2024 16:55-0400 Body height 175.[address] Abhi Cooper DO Work Phone: 2(670)395-269648 [place] [address] 10-05-2024 16:55-0400 Body mass index (BMI) [Ratio] 44.6 kg/m2 Dr. Abhi Cooper DO Work Phone: 7(329)846-847548 [place] [address] 10-05-2024 16:55-0400 Body weight 136.[address] Abhi Cooper DO Work Phone: 1(183)122-766648 [place] [address] 09-28-2024 16:43-0400 Body height 175.[address] Abhi Cooper DO Work Phone: 3(956)047-014848 [place] [address] 09-28-2024 16:43-0400 Body mass index (BMI) [Ratio] 43.6 kg/m2 Dr. Abhi Cooper DO Work Phone: [facility] 09-28-2024 16:43-0400 Body temperature 97.2 [degF] Dr. Abhi Cooper DO Work Phone: 5(188)331-104048 [place] [address] 09-28-2024 16:43-0400 Body weight [address] Abhi Cooper DO Work Phone: 5(215)930-537048 [place] [address] 09-28-2024 16:43-0400 Diastolic blood pressure 72 mm[Hg] Dr. Abhi Cooper DO Work Phone: 0(413)640-344048 [place] [address] 09-28-2024 16:43-0400 Heart rate 70 /min Dr. Abhi Cooper DO Work Phone: 8(072)657-787048 [place] [address] 09-28-2024 16:43-0400 Respiratory rate 18 /min Dr. Abhi Cooper DO Work Phone: 8(840)302-704101 [place] [address] 09-28-2024 16:43-0400 SaO2% (BldA) [Mass fraction] 100 % Dr. Abhi Cooper DO Work Phone: 2(200)945-908148 [place] [address] 09-28-2024 16:43-0400 Systolic blood pressure 154 mm[Hg] Dr. Abhi Cooper DO Work Phone: 8(238)798-798548 [place] [address] 09-24-2024 16:50-0400 Body height 175.[address] Abhi Cooper DO Work Phone: 2(845)634-005748 [place] [address] 09-24-2024 16:50-0400 Body mass index (BMI) [Ratio] 43.9 kg/m2 Dr. Abhi Cooper DO Work Phone: 0(598)535-222748 [place] [address] 09-24-2024 16:50-0400 Body temperature 98.2 [degF] Dr. Abhi Cooper DO Work Phone: 3(633)280-884148 [place] [address] 09-24-2024 16:50-0400 Body weight 135.[address] Abhi Cooper DO Work Phone: [facility] 09-24-2024 16:50-0400 Diastolic blood pressure 70 mm[Hg] Dr. Abhi Cooper DO Work Phone: [facility] 09-24-2024 16:50-0400 Heart rate 66 /min Dr. Abhi Cooper DO Work Phone: 0(444)864-123648 [place] [address] 09-24-2024 16:50-0400 Respiratory rate 12 /min Dr. Abhi Cooper DO Work Phone: 5(540)664-367048 [place] [address] 09-24-2024 16:50-0400 SaO2% (BldA) [Mass fraction] 100 % Dr. Abhi Cooper DO Work Phone: 8(799)313-244548 [place] [address] 09-24-2024 16:50-0400 Systolic blood pressure 124 mm[Hg] Dr. Abhi Cooper DO Work Phone: 1(469)255-791748 [place] [address] 09-21-2024 18:33-0400 Body height 175.[address] Abhi Cooper DO Work Phone: 3(327)638-475501 [place] [address] 09-21-2024 18:33-0400 Body mass index (BMI) [Ratio] 43.9 kg/m2 Dr. Abhi Cooper DO Work Phone: 1(308)799-670848 [place] [address] 09-21-2024 18:33-0400 Body temperature 97.6 [degF] Dr. Abhi Cooper DO Work Phone: 8(412)835-590748 [place] [address] 09-21-2024 18:33-0400 Body weight 135.[address] Abhi Cooper DO Work Phone: 6(244)575-494948 [place] [address] 09-21-2024 18:33-0400 Diastolic blood pressure 99 mm[Hg] Dr. Abhi Cooper DO Work Phone: 9(447)687-639748 [place] [address] 09-21-2024 18:33-0400 Heart rate 79 /min Dr. Abhi Cooper DO Work Phone: 1(397)349-771648 [place] [address] 09-21-2024 18:33-0400 Respiratory rate 15 /min Dr. Abhi Cooper DO Work Phone: 5(595)082-387148 [place] [address] 09-21-2024 18:33-0400 SaO2% (BldA) [Mass fraction] 99 % Dr. Abhi Cooper DO Work Phone: [facility] 09-21-2024 18:33-0400 Systolic blood pressure 134 mm[Hg] Dr. Abhi Cooper DO Work Phone: [facility] 04-29-2024 13:22-0400 Body height 175.3 cm Shay Izquierdo MD Work Phone: [facility] 04-29-2024 13:22-0400 Body mass index (BMI) [Ratio] 43.86 kg/m2 Shay Izquierdo MD Work Phone: [facility] 04-29-2024 13:22-0400 Body weight 134.72 kg Shay Izquierdo MD Work Phone: [facility] 04-29-2024 13:22-0400 Diastolic blood pressure 81 mm[Hg] Shay Izquierdo MD Work Phone: [facility] 04-29-2024 13:22-0400 Systolic blood pressure 121 mm[Hg] Shay Izquierdo MD Work Phone: [facility] 04-22-2024 12:55-0400 Body height 175.3 cm Jason Castro [employer] Work Phone: [facility] 04-22-2024 12:55-0400 Body mass index (BMI) [Ratio] 43.86 kg/m2 Jason Castro [employer] Work Phone: [facility] 04-22-2024 12:55-0400 Body weight 134.72 kg Jason Castro [employer] Work Phone: [facility] 04-22-2024 12:55-0400 Diastolic blood pressure 80 mm[Hg] Jason Castro [employer] Work Phone: [facility] 04-22-2024 12:55-0400 Heart rate 72 /min Jason Castro [employer] Work Phone: [facility] 04-22-2024 12:55-0400 Systolic blood pressure 129 mm[Hg] Jason Castro [employer] Work Phone: [facility] 04-16-2024 17:35-0400 Diastolic blood pressure 112 mm[Hg] [facility] 04-16-2024 17:35-0400 Heart rate 81 /min [facility] 04-16-2024 17:35-0400 Respiratory rate 20 /min [facility] 04-16-2024 17:35-0400 SaO2% (BldA) [Mass fraction] 98 % [facility] 04-16-2024 17:35-0400 Systolic blood pressure 160 mm[Hg] [facility] 06-23-2023 14:32-0500 Body mass index (BMI) [Ratio] 44.6 kg/m2 Dr. Wilfredo Fischer Work Phone: [facility] 06-23-2023 14:32-0500 Body temperature 98.6 [degF] Dr. Wilfredo Fischer Work Phone: [facility] 06-23-2023 14:32-0500 Body weight 137.[address] Wilfredo Fischer Work Phone: [facility] 06-23-2023 14:32-0500 Diastolic blood pressure 82 mm[Hg] Dr. Wilfredo Fischer Work Phone: [facility] 06-23-2023 14:32-0500 Heart rate 84 /min Dr. Wilfredo Fischer Work Phone: [facility] 06-23-2023 14:32-0500 Respiratory rate 17 /min Dr. Wilfredo Fischer Work Phone: [facility] 06-23-2023 14:32-0500 SaO2% (BldA) [Mass fraction] 98 % Dr. Wilfredo Fischer Work Phone: [facility] 06-23-2023 14:32-0500 Systolic blood pressure 120 mm[Hg] Dr. Wiflredo Fischer Work Phone: [facility] 06-04-2023 15:07-0500 Body temperature 98.4 [degF] Dr. Wilfredo Fischer Work Phone: [facility] 06-04-2023 15:07-0500 Body weight 137.[address] Wilfredo Fischer Work Phone: [facility] 06-04-2023 15:07-0500 Diastolic blood pressure 78 mm[Hg] Dr. Wilfredo Fischer Work Phone: [facility] 06-04-2023 15:07-0500 Heart rate 80 /min Dr. Wilfredo Fischer Work Phone: [facility] 06-04-2023 15:07-0500 Respiratory rate 14 /min Dr. Wilfredo Fischer Work Phone: [facility] 06-04-2023 15:07-0500 SaO2% (BldA) [Mass fraction] 99 % Dr. Wilfredo Fischer Work Phone: [facility] 06-04-2023 15:07-0500 Systolic blood pressure 115 mm[Hg] Dr. Wilfredo Fischer Work Phone: [facility] 04-20-2023 15:59-0400 Body mass index (BMI) [Ratio] 45 kg/m2 Dr. Wilfredo Fischer Work Phone: [facility] 04-20-2023 15:59-0400 Body temperature 99.1 [degF] Dr. Wilfredo Fischer Work Phone: [facility] 04-20-2023 15:59-0400 Body weight 138.[address] Wilfredo Fischer Work Phone: [facility] 04-20-2023 15:59-0400 Diastolic blood pressure 70 mm[Hg] Dr. Wilfredo Fischer Work Phone: [facility] 04-20-2023 15:59-0400 Heart rate 76 /min Dr. Wilfredo Fischer Work Phone: [facility] 04-20-2023 15:59-0400 Respiratory rate 17 /min Dr. Wilfredo Fischer Work Phone: [facility] 04-20-2023 15:59-0400 SaO2% (BldA) [Mass fraction] 99 % Dr. Wilfredo Fischer Work Phone: [facility] 04-20-2023 15:59-0400 Systolic blood pressure 120 mm[Hg] Dr. Wilfredo Fischer Work Phone: [facility] 04-08-2023 15:53-0400 Body mass index (BMI) [Ratio] 45.1 kg/m2 Dr. Wilfredo Fischer Work Phone: [facility] 04-08-2023 15:53-0400 Body temperature 98.6 [degF] Dr. Wilfredo Fischer Work Phone: [facility] 04-08-2023 15:53-0400 Body weight 138.[address] Wilfredo Fischer Work Phone: [facility] 04-08-2023 15:53-0400 Diastolic blood pressure 68 mm[Hg] Dr. Wilfredo Fischer Work Phone: [facility] 04-08-2023 15:53-0400 Heart rate 96 /min Dr. Wilfredo Fischer Work Phone: [facility] 04-08-2023 15:53-0400 Respiratory rate 17 /min Dr. Wilfredo Fischer Work Phone: [facility] 04-08-2023 15:53-0400 SaO2% (BldA) [Mass fraction] 98 % Dr. Wilfredo Fischer Work Phone: [facility] 04-08-2023 15:53-0400 Systolic blood pressure 128 mm[Hg] Dr. Wilfredo Fischer Work Phone: [facility] 03-18-2023 11:15-0400 Body mass index (BMI) [Ratio] 44 kg/m2 Dr. Wilfredo Fischer Work Phone: [facility] 03-18-2023 11:15-0400 Body temperature 98.2 [degF] Dr. Wilfredo Fischer Work Phone: [facility] 03-18-2023 11:15-0400 Body weight 135.[address] Wilfredo Fischer Work Phone: [facility] 03-18-2023 11:15-0400 Diastolic blood pressure 70 mm[Hg] Dr. Wilfredo Fischer Work Phone: [facility] 03-18-2023 11:15-0400 Heart rate 84 /min Dr. Wilfredo Fischer Work Phone: [facility] 03-18-2023 11:15-0400 Respiratory rate 17 /min Dr. Wilfredo Fischer Work Phone: [facility] 03-18-2023 11:15-0400 SaO2% (BldA) [Mass fraction] 99 % Dr. Wilfredo Fischer Work Phone: [facility] 03-18-2023 11:15-0400 Systolic blood pressure 116 mm[Hg] Dr. Wilfredo Fischer Work Phone: [facility] 02-24-2023 09:16-0400 Body height 175.[address] Wilfredo Fischer Work Phone: [facility] 02-24-2023 09:16-0400 Body mass index (BMI) [Ratio] 44 kg/m2 Dr. Wilfredo Fischer Work Phone: [facility] 02-24-2023 09:16-0400 Body temperature 98.6 [degF] Dr. Wilfredo Fischer Work Phone: [facility] 02-24-2023 09:16-0400 Body weight 135.[address] Wilfredo Fischer Work Phone: [facility] 02-24-2023 09:16-0400 Diastolic blood pressure 80 mm[Hg] Dr. Wilfredo Fischer Work Phone: [facility] 02-24-2023 09:16-0400 Heart rate 102 /min Dr. Wilfredo Fischer Work Phone: [facility] 02-24-2023 09:16-0400 Respiratory rate 17 /min Dr. Wilfredo Fischer Work Phone: [facility] 02-24-2023 09:16-0400 SaO2% (BldA) [Mass fraction] 97 % Dr. Wilfredo Fischer Work Phone: [facility] 02-24-2023 09:16-0400 Systolic blood pressure 116 mm[Hg] Dr. Wilfredo Fischer Work Phone: [facility] 02-06-2023 11:02-0400 Body height 175.3 cm Wilfredo Fischer DO Work Phone: [facility] 02-06-2023 11:02-0400 Body mass index (BMI) [Ratio] 43.86 kg/m2 Wilfredo Fischer DO Work Phone: [facility] 02-06-2023 11:02-0400 Body temperature 96.91 [degF] Wilfredo Fischer DO Work Phone: [facility] 02-06-2023 11:02-0400 Body weight 134.72 kg Wilfredo Fischer DO Work Phone: [facility] 02-06-2023 11:02-0400 Diastolic blood pressure 88 mm[Hg] Wilfredo Fischer DO Work Phone: [facility] 02-06-2023 11:02-0400 Heart rate 88 /min Wilfredo Fischer DO Work Phone: [facility] 02-06-2023 11:02-0400 SaO2% (BldA) [Mass fraction] 97 % Wilfredo Fischer DO Work Phone: [facility] 02-06-2023 11:02-0400 Systolic blood pressure 134 mm[Hg] Wilfredo Fischer DO Work Phone: [facility] 08-01-2022 08:40-0500 Body height 175.3 cm Wilfredo Fischer DO Work Phone: [employer] 08-01-2022 08:40-0500 Body mass index (BMI) [Ratio] 44.01 kg/m2 Wilfredo Fischer DO Work Phone: [employer] 08-01-2022 08:40-0500 Body temperature 97.11 [degF] Wilfredo Fischer DO Work Phone: [employer] 08-01-2022 08:40-0500 Body weight 135.17 kg Wilfredo Fischer DO Work Phone: [employer] 08-01-2022 08:40-0500 Diastolic blood pressure 82 mm[Hg] Wilfredo Fischer DO Work Phone: [employer] 08-01-2022 08:40-0500 Heart rate 87 /min Wilfredo Fischer DO Work Phone: [employer] 08-01-2022 08:40-0500 SaO2% (BldA) [Mass fraction] 97 % Wilfredo Fischer DO Work Phone: [employer] 08-01-2022 08:40-0500 Systolic blood pressure 119 mm[Hg] Wilfredo Fischer DO Work Phone: [employer] 11-13-2020 14:06-0400 Body temperature 98.01 [degF] [employer] Work Phone: 11-13-2020 14:06-0400 Diastolic blood pressure 78 mm[Hg] [employer] Work Phone: 11-13-2020 14:06-0400 Heart rate 78 /min [employer] Work Phone: 11-13-2020 14:06-0400 Respiratory rate 18 /min [employer] Work Phone: 11-13-2020 14:06-0400 Systolic blood pressure 120 mm[Hg] [employer] Work Phone: 11-13-2020 11:54-0400 SaO2% (BldA) [Mass fraction] 97 % [facility] Work Phone: 11-13-2020 11:41-0400 Body height 175.3 cm [facility] Work Phone: 11-13-2020 11:41-0400 Body mass index (BMI) [Ratio] 31.9 kg/m2 [facility] Work Phone: 11-13-2020 11:41-0400 Body weight 97.98 kg [facility] Work Phone: 08-09-2020 14:12-0500 Body Temperature 98.01 [degF] Niurka Rivas [facility] Work Phone: 08-09-2020 14:12-0500 BP Diastolic 86 mm[Hg] Niurka Rivas [facility] Work Phone: 08-09-2020 14:12-0500 BP Systolic 154 mm[Hg] Niurka Rivas [facility] Work Phone: 08-09-2020 14:12-0500 Pulse (Heart Rate) 66 /min Niurka Rivas [facility] Work Phone: 08-09-2020 14:12-0500 Pulse Oximetry 100 % Niurka Rivas [facility] Work Phone: 08-09-2020 14:12-0500 Respiratory Rate 18 /min [facility]ka [email or web address] Work Phone: Encounters Encounter Date Encounter Type Care Provider Facility Start: 04-13-2025 End: 04-13-2025 ambulatory No Primary Care Physician Facility:[facility] Start: 04-06-2025 End: 04-06-2025 Patient encounter procedure Tiarra CLAUDIO -[facility] Work Phone: Start: 04-06-2025 End: 04-06-2025 ambulatory No Primary Care Physician -[facility] Start: 03-24-2025 End: 03-24-2025 ambulatory MD NO PRIMARY CARE [facility] Start: 03-22-2025 End: 03-22-[address] Mignon Washington DO -[facility] Work Phone: Start: 03-22-2025 End: 03-22-2025 ambulatory No Primary Care Physician -[facility] Start: 03-07-2025 End: 03-07-2025 ambulatory No Primary Care Physician -Laboratory Specimen Start: 03-07-2025 End: 03-07-[address] Comfort Agee MD -Laboratory Specimen Work Phone: Start: 03-07-2025 End: 03-07-[address] Comfort Agee MD -[facility] Work Phone: Start: 03-07-2025 End: 03-07-2025 ambulatory No Primary Care Physician -[facility] Start: 03-07-2025 End: 03-07-2025 ambulatory Comfort Agee Facility:[facility] Start: 03-04-2025 End: 03-04-2025 Emergency department patient visit No Primary Care Physician -Emergency Department Work Phone: Start: 10-05-2024 End: 10-05-2024 Emergency department patient visit Dr. Abhi Cooper DO Work Phone: -Emergency Department Work Phone: Start: 10-05-2024 End: 10-05-2024 ambulatory No Primary Care Physician Facility:[facility] Start: 09-28-2024 End: 09-28-2024 Emergency department patient visit Dr. Abhi Cooper DO Work Phone: -Emergency Department Work Phone: Start: 09-28-2024 End: 09-28-[address] Abhi Cooper DO -Emergency Department Work Phone: Start: 09-28-2024 End: 09-28-2024 ambulatory Abhi Cooper Facility:[facility] Start: 09-24-2024 End: 09-24-2024 Emergency department patient visit Dr. Abhi Cooper DO Work Phone: -Emergency Department Work Phone: Start: 09-24-2024 End: 09-24-[address] Abhi Cooper DO -Emergency Department Work Phone: Start: 09-24-2024 End: 09-24-2024 ambulatory Abhi Cooper Facility:[facility] Start: 09-21-2024 End: 09-21-2024 Emergency department patient visit Dr. Abhi Cooper DO Work Phone: -Emergency Department Work Phone: Start: 04-29-2024 End: 04-29-2024 Office outpatient new 30 minutes Shay Izquierdo MD Work Phone: [facility] [place] Comment on above: Tear of left acetabu lar labrum, initial encounter (Primary Dx); Left hip pain; Tendinopathy of gluteus medius Start: 04-29-2024 End: 04-29-2024 Subsequent hospital visit by physician Shay Izquierdo MD Work Phone: [facility] [place] [facility] Comment on above: Left hip pain Start: 04-29-2024 End: 04-29-2024 ambulatory [facility] Start: 04-22-2024 End: 04-22-2024 Office outpatient new 45 minutes Jason Zulemanathan [employer]ANCING [employer] Work Phone: [facility] [place] Comment on above: Lumbar pain (Primary Dx); Lumbar radiculopathy; Lumbar spondylosis; Degeneration of intervertebral disc of lumbar region with discogenic back pain and lower extremity pain; Left hip pain Start: 04-22-2024 End: 04-22-2024 ambulatory J[facility] Start: 04-16-2024 End: 04-16-2024 Emergency department patient visit WILFREDO FISCHER [facility] ED Comment on above: Acute low back pain with sciatica, sciatica laterality unspecified, unspecified back pain laterality (Primary Dx) Start: 06-26-2023 End: 06-26-[address] Wilfredo Fischer Work Phone: [facility] Work Phone: Start: 06-26-2023 End: 06-26-[address] Wilfredo Fischer Work Phone: [facility] Work Phone: Start: 06-23-2023 End: 06-23-[address] Wilfredo Fischer Work Phone: [facility] Work Phone: Start: 06-04-2023 End: 06-04-[address] Wilfredo Fischer Work Phone: [facility] Work Phone: Start: 04-20-2023 End: 04-20-[address] Wilfredo Fischer Work Phone: [facility] Work Phone: Start: 04-08-2023 End: 04-08-[address] Wilfredo Fischer Work Phone: [facility] Work Phone: Start: 04-08-2023 Refill Wilfredo carrillo DO Work Phone: [facility] Start: 03-27-2023 End: 03-27-[address] Wilfredo Fischer Work Phone: [facility] Work Phone: Start: 03-18-2023 End: 03-18-[address] Wilfredo Fischer Work Phone: [facility] Work Phone: Start: 03-12-2023 End: 03-12-[address] Wilfredo Fischer Work Phone: [facility] Work Phone: Start: 03-12-2023 End: 03-12-[address] Wilfredo Fischer Work Phone: [facility]-Sleep Lab Work Phone: Start: 03-05-2023 Refill Wilfredo carrillo DO Work Phone: [facility] Medicine Start: 02-27-2023 End: 02-27-[address] Wilfredo Fischer Work Phone: [facility]-Laboratory, [place] Work Phone: Start: 02-24-2023 End: 02-24-[address] Wilfredo Fischer Work Phone: [facility] Work Phone: Start: 02-06-2023 End: 02-06-2023 Office outpatient visit 25 minutes Wilfredo Fischer DO Work Phone: [facility] Medicine Comment on above: Essential hypertensi on (Primary Dx); Idiopathic neuropathy Start: 01-15-2023 Orders Only Wilfredo carrillo DO Work Phone: [facility] Medicine Comment on above: Anxiety (Primary Dx) Start: 01-01-2023 Telephone encounter Wilfredo Reyesrijameea DO Work Phone: [facility] Comment on above: Referral Extension Start: 01-01-2023 End: 01-01-2023 Subsequent hospital visit by physician Wilfredo Fischer DO Work Phone: [facility] MRI Comment on above: Paresthesia of upper extremity; Abnormal NCS (nerve conduction studies) Start: 12-31-2022 Refill Wilfredo carrillo DO Work Phone: [facility] Start: 10-20-2022 Telephone encounter Wilfredo Tan etrilla DO Work Phone: [facility] Comment on above: Orders (MRI C Spine) Start: 10-09-2022 Telephone encounter Wilfredo Tan etrilla DO Work Phone: [facility] Comment on above: Orders (EMG/NCS B/L Upper) Start: 08-03-2022 Telephone encounter Wilfredo scanlon DO Work Phone: [facility] Start: 08-01-2022 End: 08-01-2022 Office outpatient visit 15 minutes Wilfredo Maximiliano Kevlorena DO Work Phone: [facility] Comment on above: Lumbar radiculopathy , chronic (Primary Dx); Paresthesia of upper extremity; Class 3 severe obesity due to excess calories with serious comorbidity and body mass index (BMI) of 40.0 to 44.9 in adult ([facility]) Start: 07-18-2022 End: 07-18-2022 Subsequent hospital visit by physician Wilfredo Fischer DO Work Phone: [facility] Radiology Comment on above: Tactile hypesthesia; Lumbar radiculopathy; Bilateral hip pain Start: 07-08-2022 Telephone encounter Wilfredo Viera Dominick merijameejared DO Work Phone: [facility] Comment on above: Missed Call Start: 07-03-2022 Orders Only Wilfredo Maximiliano Kev mancusojared DO Work Phone: [facility] Comment on above: Tactile hypesthesia (Primary Dx); Lumbar radiculopathy Start: 04-17-2022 Transcribe Orders Wilfredo ward DO Work Phone: [facility] Comment on above: Cough, unspecified ( Primary Dx) Start: 04-13-2022 Transcribe Orders Wilfredo julienla DO Work Phone: [facility] Comment on above: Cough, unspecified ( Primary Dx) Start: 03-21-2022 ambulatory Wilfredo Amado [facility] Start: 03-21-2022 End: 03-21-2022 Subsequent hospital visit by physician Wilfredo Fischer DO Work Phone: [facility] Radiology Comment on above: Cough Start: 09-27-[address] [facility] Start: 09-27-2021 End: 09-27-2021 Subsequent hospital visit by physician Mignon Morales PA-C Work Phone: [facility] Start: 09-13-2021 End: 09-13-2021 Subsequent hospital visit by physician Mignon Morales PA-C Work Phone: [facility] Start: 09-06-2021 End: 09-06-2021 Subsequent hospital visit by physician Mignon Morales PA-C Work Phone: [facility] Start: 08-28-2021 End: 08-28-2021 Subsequent hospital visit by physician Mignon Morales PA-C Work Phone: [facility] Start: 07-03-2021 End: 07-03-2021 Subsequent hospital visit by physician Mignon Morales PA-C Work Phone: [facility] Start: 06-03-2021 End: 06-03-2021 ambulatory UNKNOWN PROVIDER [facility] Start: 05-17-2021 ambulatory UNKNOWN PROVIDER [facility] Start: 11-13-2020 End: 11-13-2020 Emergency department patient visit [facility] ED Comment on above: Mouth pain (Primary Dx); Throat pain Start: 10-29-2020 End: 10-29-2020 Subsequent hospital visit by physician Pinky Romero MD Work Phone: [facility] MRI Comment on above: Instability of right shoulder joint Start: 10-05-2020 End: 10-05-2020 Subsequent hospital visit by physician Pinky Romero Work Phone: [facility] Start: 09-21-2020 End: 09-21-2020 Subsequent hospital visit by physician Pinky Romero Work Phone: [facility] Start: 09-10-2020 End: 09-10-2020 Subsequent hospital visit by physician Pinky Romero Work Phone: [facility] Start: 08-09-2020 End: 08-09-2020 Emergency department patient visit Niurka Rivas Work Phone: [facility] ED Comment on above: Acute pain of right shoulder (Primary Dx) Start: 01-01-2018 RhD negative Niurka AMARO Work Phone: Start: 02-26-2017 End: 02-26-2017 Emergency department patient visit [facility] Facility:B Procedures Date Procedure Procedure Detail Performing Clinician Start: 03-22-2025 Hepatitis C antibody measurement No Primary Care Physician Comment on above: Reactive: Presumptiv e evidence of antibodies to HCV. Follow CDC recommendations for supplemental testing.Non-Reactive: Antibodies to HCV were not detected; does not exclude the possibility of exposure to HCVReactive Results are presumptive evidence of antibodies to HCV. Follow CDC recommendations for supplemental testing.Order confirmation testing: HCV Quant by PCR testing - HCVPCR #[id number] Non Reactive: < 0.8 Equivocal: >/= 0.8 to < 1.0 Reactive: >/= 1.0The CDC requires that a reactive/equivocal HCV antibody result be sent out for confirmation. HCV Quant by PCR testing. Start: 03-22-2025 Procedure No Primary Care Physician Start: 03-22-2025 Rubella IgG measurement No Primary Care Physician Comment on above: Antibody Result: Int erpretationNon-Reactive: Non- ImmuneReactive: ImmuneThe following results were obtained with the [employer] Rubella IgG assay. Results from assays of other manufacturers cannot be used interchangeably. Start: 03-22-2025 Serologic test for syphilis No Primary Care Physician Start: 03-07-2025 Liquid based cervica l cytology screening No Primary Care Physician Comment on above: NEGATIVE FOR INTRAEP ITHELIAL LESION OR MALIGNANCY. This liquid based Th inPrep(R) pap test was screened withthe use of an image guided system. Start: 03-07-2025 Urine culture No Primar y Care Physician Start: 03-27-2023 MRI of brain with contrast [...] in Cervix by Cyto stain Mignon Morales PAJani Work Phone: H/O: section Hx of cesa rean section No Primary Care Physician Comment on above: 2014 & 2017, plan RL TCS H/O: section Hx of cesa rean section Dr. Comfort Agee MD H/O: section Hx of cesa rean section Dr. 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 Plan of Treatment Date Care Activity Detail Author Start: 2064 RSV Immunization for Adults (1 - 1-dose 75+ series) RSV Immunization for Adults (1 - 1-dose 75+ series) [facility] Start: 2049 RSV Immunization age d 60 or older (1 - 1-dose 60+ series) RSV Immunization aged 60 or older (1 - 1-dose 60+ series) [facility] Start: 2039 Zoster Vaccines (1 of 2) Zoste r Vaccines (1 of 2) [facility] Start: 01-02-2028 DTaP/Tdap/Td vaccine (2 - Td) DTaP/Tdap/Td vaccine (2 - Td) [facility] Work Phone: Start: 01-02-2028 DTaP/Tdap/Td vaccine (3 - Td or Tdap) DTaP/Tdap/Td vaccine (3 - Td or Tdap) [facility] Start: 01-02-2028 DTaP/Tdap/Td vaccine (3 - Td) DTaP/Tdap/Td vaccine (3 - Td) [facility] Work Phone: Start: 01-02-2028 DTaP/Tdap/Td Vaccine s (3 - Td or Tdap) DTaP/Tdap/Td Vaccines (3 - Td or Tdap) [facility] Start: 03-21-2027 Lipid panel Lipid Panel [facility] Start: 03-22-2025 [facility] Start: 03-04-2025 [facility] Start: 10-05-2024 [facility] Start: 09-28-2024 [facility] Start: 09-24-2024 [facility] Start: 09-21-2024 [facility] Start: 04-29-2024 End: 04-29-2024 Patient encounter procedure 04/29/2024 1:15 PM EDT [facility] [place] [phone] Shay Izquierdo MD [address] [place] [address] [place] [address] [facility] Start: 04-26-2024 End: 07-27-2024 XR Hip - left 3 Views XR hip left 2 or 3 views Imaging Routine Left hip pain Expected: 04/26/2024, Expires: 07/27/2024 [facility] Work Phone: Comment on above: Expected: 04/26/2024 , Expires: 07/27/2024 Start: 02-28-2024 COVID-19 Vaccine ( season) COVID-19 Vaccine ( season) [facility] Start: 02-28-2024 COVID-19 Vaccine ( season) COVID-19 Vaccine ( season) [facility] Start: 02-28-2024 Influenza vaccination Influenza Vacc ine (#1) [facility] Start: 08-01-2023 Diabetes mellitus screening Diabetes Screening [facility] Start: 03-21-2023 Depression Screen Depression Screen [facility] Start: 03-21-2023 Influenza vaccination Flu vaccine (# 1) [facility] Comment on above: Postponed from 02/27 (Patient Refused) Start: 03-12-2023 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, [place] [phone] [facility] MRI Start: 01-01-2023 End: 01-01-2023 Patient encounter procedure 01/01/2023 1:00 PM EDT Appointment [facility] MRI [address] [place] [phone] Wilfredo Fischer, DO [address], [place] [phone] [facility] MRI Start: 10-20-2022 End: 10-21-2023 MR Cervical spine WO contrast MR cervical spine wo contrast Imaging Routine Lumbar radiculopathy, chronic Expected: 10/20/2022, Expires: 10/21/2023 [facility] Work Phone: Comment on above: Expected: 10/20/2022 , Expires: 10/21/2023 Start: 10-09-2022 End: 10-10-2023 NERVE CONDUCTION TEST WITH [facility] NERVE CONDUCTION TEST WITH [facility] Neurology Routine Paresthesia of upper extremity Expected: 10/09/2022 (Approximate), Expires: 10/10/2023 [facility] Work Phone: Comment on above: Expected: 10/09/2022 (Approximate), Expires: 10/10/2023 Start: 08-01-2022 End: 02-03-2024 XR Cervical spine 4 or 5 Views XR cervical spine complete 4 to 5 views Imaging Routine Paresthesia of upper extremity Expected: 08/01/2022, Expires: 08/01/2023 [facility] Work Phone: Comment on above: Expected: 08/01/2022 , Expires: 08/01/2023 Start: 07-03-2022 End: 07-03-2023 XR Lumbar spine 4 Views XR lumbar spine complete 4+ views Imaging Routine Tactile hypesthesia Lumbar radiculopathy Expected: 07/03/2022, Expires: 07/03/2023 [facility] Work Phone: Comment on above: Expected: 07/03/2022 , Expires: 07/03/2023 Start: 06-25-2022 COVID-19 Vaccine (#1) COVID-19 Vacci ne (#1) [facility] Comment on above: Postponed from 12/30 (Patient Refused) Start: 05-31-2022 Creatinine measurement Creatinine mo nitoring [facility] Start: 05-31-2022 Potassium monitoring Potassium monit oring [facility] Start: 05-02-2022 End: 05-02-2022 Patient encounter procedure 05/02/2022 Office Visit Family Medicine Wilfredo Fischer, DO [address] [place] [phone] [facility] Start: 02-27-2022 Influenza vaccination Influenza Vacc ine (#1) [facility] Start: 11-20-2021 End: 11-20-2021 Patient encounter procedure 11/20/2021 Office Visit Orthopedic Surgery Nelson Brown MD [address] [facility] [address] [place] [address] [facility] [place] Start: 07-10-2021 End: 07-10-2021 Patient encounter procedure 07/10/2021 Office Visit Orthopedic Surgery Mignon Morales PA-C [address] [facility] [address] [place], [place] [phone] [facility] [place] Start: 02-27-2021 Influenza vaccination [facility] Start: 10-11-2020 End: 10-11-2020 Office Visit 10/11/2020 Office Visit Sports Medicine Pinky Romero MD [address] [facility] [address] [place] [address] [phone] [facility] [place] Start: 08-19-2020 Screening for malign ant neoplasm of cervix [facility] Start: 02-28-2020 Influenza vaccination Flu vaccine (# 1) [facility] Work Phone: Start: 2019 Screening for malign ant neoplasm of cervix [facility] Start: 2010 Screening for malign ant neoplasm of cervix Pap Smear [facility] Start: 2008 Hepatitis B Vaccines (1 of 3 - 19+ 3-dose series) Hepatitis B Vaccines (1 of 3 - 19+ 3-dose series) [facility] Start: 2007 Hepatitis C screening [facility] Start: 2005 COVID-19 Vaccine (1) COVID-19 Vaccin e (1) [facility] Work Phone: Start: 2002 Varicella vaccination Varicell a Vaccines (1 of 2 - 13+ 2-dose series) [facility] Start: 2001 COVID-19 Vaccine (1) COVID-19 Vaccin e (1) [facility] Work Phone: Start: 2001 Depression Screen Depression Screen [facility] Start: 2001 Depression Screening Depression Scre ening [facility] Start: 1995 Pneumococcal 0-64 ye ars Vaccine (1 - PCV) Pneumococcal 0-64 years Vaccine (1 - PCV) [facility] Start: 1995 Pneumococcal 0-64 ye ars Vaccine (1 of 1 - PPSV23) Pneumococcal 0-64 years Vaccine (1 of 1 - PPSV23) [facility] Work Phone: Start: 1995 Pneumococcal 0-64 ye ars Vaccine (1 of 2 - PPSV23) Pneumococcal 0-64 years Vaccine (1 of 2 - PPSV23) [facility] Start: 1995 Pneumococcal Vaccine : Pediatrics (0 to 5 Years) and At-Risk Patients (6 to 64 Years) (1 - PCV) Pneumococcal Vaccine: Pediatrics (0 to 5 Years) and At-Risk Patients (6 to 64 Years) (1 - PCV) [facility] Start: 1995 Pneumococcal Vaccine : Pediatrics (0 to 5 Years) and At-Risk Patients (6 to 64 Years) (1 of 2 - PCV) Pneumococcal Vaccine: Pediatrics (0 to 5 Years) and At-Risk Patients (6 to 64 Years) (1 of 2 - PCV) [facility] Start: 1994 COVID-19 Vaccine (1) COVID-19 Vaccin e (1) [facility] Start: 1990 MMR Vaccines (1 of 1 - Standard series) MMR Vaccines (1 of 1 - Standard series) [facility] Start: 1990 Varicella vaccination Varicell a Vaccines (1 of 2 - 2-dose childhood series) [facility] Start: 1990 Varicella vaccine (1 of 2 - 2-dose childhood series) Varicella vaccine (1 of 2 - 2-dose childhood series) [facility] Start: 1989 COVID-19 Vaccine (#1) COVID-19 Vacci ne (#1) [facility] Start: 1989 Hepatitis B Vaccines (1 of 3 - 3-dose series) Hepatitis B Vaccines (1 of 3 - 3-dose series) [facility] Start: 1989 Hepatitis C screening Hepatitis C sc reen [facility] Start: 1989 HIV screening HIV Screening [facility] He alth CBC W Auto Different ial panel - Blood [facility] Chlamydia deoxyribon ucleic acid detection [facility] Comprehensive metabo lic 2000 panel - Serum or Plasma [facility] Hemoglobin A1c/Hemoglobin.total in Blood [facility] Hepatitis C antibody measurement [facility] Liquid based cervica l cytology screening [facility] MR Brain WO and W co ntrast IV [facility] End: 01-01-2023 MR Cervical spine WO contrast MR cervical spine wo contrast Imaging Routine Paresthesia of upper extremity Abnormal NCS (nerve conduction studies) Once for 1 Occurrences starting 01/01/2023 until 01/01/2023 [facility] Work Phone: Comment on above: Once for 1 Occurrenc es starting 01/01/2023 until 01/01/2023 OUTSIDE PROCEDURE SCAN OUTSIDE P ROCEDURE SCAN Procedures Ordered: 07/18/2022 [employer] Comment on above: Ordered: 07/18/2022 Patient Education Bleeding Durin g Early [facility] Work Phone: Patient referral [facility] Work Phone: Polysomnography [facility] Polysomnography [facility] Procedure [facility] Protein/Creatinine [ Ratio] in Urine [facility] Pulmonary function test Pulmonar y function test PFT Routine Cough, Unspecified Ordered: 04/13/2022 [employer] Work Phone: Comment on above: Ordered: 04/13/2022 Rubella IgG measurement [facility] Serologic test for syphilis [facility] End: 03-21-2022 XR CHEST (2 VW) [facility] Work Phone: Comment on above: 1 Occurrences starti ng 03/21/2022 until 03/21/2022 End: 04-29-2024 XR Hip - left [employer] Comment on above: Once for 1 Occurrenc es starting 04/29/2024 until 04/29/2024 End: 07-18-2022 XR hips bilateral 5+ [employer] Comment on above: Once for 1 Occurrenc es starting 07/18/2022 until 07/18/2022 End: 07-18-2022 XR Lumbar spine [employer] [facility] [employer] Work Phone: Comment on above: Once for 1 Occurrenc es starting 07/18/2022 until 07/18/2022 End: 10-29-2020 XR SHOULDER ARTHROGRAM RIGHT S&I XR SHOULDER ARTHROGRAM RIGHT S&I Imaging Routine Instability of right shoulder joint 1 Occurrences starting 10/29/2020 until 10/29/2020 [facility] Work Phone: Comment on above: 1 Occurrences starti ng 10/29/2020 until 10/29/2020 [facility] Immunizations Immunization Date Immunization Notes Care Provider Jo deng 10-05-2024 rabies vaccine, for intramuscular injection Dr. Abhi Cooper DO Work Phone: [facility] 09-28-2024 rabies vaccine, for intramuscular injection Dr. Abhi Cooper DO Work Phone: [facility] 09-24-2024 rabies vaccine, for intramuscular injection Dr. Abhi Cooper DO Work Phone: [facility] 09-21-[address] Milvia Cooper DO Work Phone: [facility] 09-21-2024 rabies vaccine, for intramuscular injection Dr. Abhi Cooper DO Work Phone: [facility] 09-21-2024 tetanus toxoid, reduced diphtheria toxoid, and acellular pertussis vaccine, adsorbed Dr. Abhi Cooper DO Work Phone: [facility] 01-01-2018 tetanus toxoid, reduced diphtheria toxoid, and acellular pertussis vaccine, adsorbed Niurka AMARO Work Phone: 06-18-2015 influenza virus vaccine, unspecified formulation Wilfredo Fischer DO Work Phone: [facility] Work Phone: 06-18-2015 influenza, injectabl e, quadrivalent, contains preservative Wilfredo Fischer DO Work Phone: [facility] 06-18-2015 influenza, injectabl e, quadrivalent, preservative free Dr. Wilfredo Fischer Work Phone: [facility] 06-18-2015 influenza, seasonal, injectable, preservative free Wilfredo Angulolljared DO Work Phone: [facility] 10-03-2013 tetanus toxoid, reduced diphtheria toxoid, and acellular pertussis vaccine, adsorbed Wilfredo Fischer DO Work Phone: [facility] Work Phone: NEGATED: Highlighted row has not occurred!01-01-2018 measles, mumps and rubella virus vaccine Niurka AMARO Comment on above: Deferred: - immune Payers Date Payer Category Payer Self-pay [id number] 2024 Unknown [id number] 2018 Medicaid [id number] 2016 Unknown [id number] 1989 Unknown [id number] 2.16. [id number] 1989 Unknown [id number] 2.16. [id number] 1989 Unknown [id number] 2.16. [id number] 1989 Unknown [id number] 2.16. [id number] 1989 Unknown [id number] 2.16. [id number] 1989 Unknown [id number] 2.16. [id number] Unknown Unknown [id number] Unknown [id number] 2.16.8 [id number] Unknown [id number] 2.16.8 [id number] Unknown [id number] 2.16.8 [id number] Unknown [id number] 2.16.8 [id number] Unknown [id number] 2.16.8 [id number] Unknown [id number] 2.16.8 [id number] Unknown [id number] 2.16.8 [id number] Unknown [id number] 2.16.8 [id number] Unknown [id number] 2.16.8 [id number] Unknown [id number] 2.16.8 [id number] Unknown [id number] 2.16.8 [id number] Social History Date Type Detail Facility Start: 09-16-2016 End: 08-09-2020 Tobacco smoking status HIIS Light tobacco smoker [facility] Start: 08-09-2020 End: 03-21-2022 Tobacco use and exposure Never used [facility] Work Phone: Start: 08-09-2020 End: 11-13-2020 Alcohol intake Current non-drinker of alcohol (finding) [facility] Work Phone: Start: 12-05-2017 End: 03-21-2022 Tobacco Comment only smokes when she has a drink [facility] Work Phone: Start: 1990 Sex Assigned At Not on file [facility] [employer] Work Phone: Start: 06-10-2021 End: 02-06-2023 Exposure to SARS-CoV-2 (event) Not sure [employer] Phone: Start: 06-12-2021 End: 07-06-2022 Alcohol intake Current drinker of alcohol (finding) [facility] Work Phone: Start: 06-03-2021 History SDOH Alcohol Comment occ [facility] Work Phone: Start: 03-21-2022 End: 09-21-2024 Tobacco smoking status [facility] Occasional tobacco smoker [facility] Work Phone: History of tobacco use Cigarette Smoker S [facility] Work Phone: Start: 03-21-2022 End: 07-06-2022 Cigarettes smoked current (pack per day) - Reported 0.5 [facility] Work Phone: Start: 03-21-2022 History SDOH Alcohol Frequency 3 [facility] Work Phone: Start: 03-21-2022 History SDOH Alcohol Std Drinks 2 [facility] Work Phone: Start: 03-21-2022 History SDOH Social Connections Phone 5 [facility] Work Phone: Start: 03-21-2022 History SDOH Social Connections Yarsanism 1 [facility] Work Phone: Start: 03-21-2022 History SDOH Social Connections Living 8 [facility] Work Phone: Start: 03-21-2022 History SDOH Physica l Activity DPW 0 [facility] Work Phone: Start: 12-31-2022 End: 03-19-2023 Tobacco use panel [facility] Start: 04-17-2022 Gender identity Identifies as female gender (finding) [facility] Start: 02-24-2023 End: 06-23-2023 Tobacco smoking status [facility] Unknown if ever smoked [facility] Start: 1990 Sex Assigned At Female W [facility] Start: 01-27-2022 End: 10-05-2024 Sex Female (finding) [facility] Start: 03-04-2025 End: 03-07-2025 Tobacco smoking status NHIS Ex-smoker (finding) [facility] Clinical Notes 04-05-2021 to 04-06-2025 Note Date & Type Note Facility 04-06-2025 Progress note [facility] 03-22-2025 Progress note [facility] 03-22-2025 Progress note Note Date/Time March 22, 2025 3:30pm [facility] [address], [address] [place] [address] OFFICE VISIT Date of Service: 03/22/25 MR#: [id number] Acct: [id number] Name: CHERYL WOOD Rep #: [id number] : 1990 Provider: Dr. Sakina Washington DO Age/Sex: 34/F Location[place] [facility] Status: Signed with Addenda ADDENDUM by Nidia Ordaz on 03/22/25 at 1533 Office Procedure Documentation entered by Nidia Ordaz 03/22/25 15:33: Injections Is this a patient provided medication?: No Office Meds RhoGAM Ultra-Filtered PLUS 1,500 unit (300 mcg) intramuscular syringe Performing Provider: Mignon Washington DO Performing Location: [facility] Administered by: Nidia Ordaz on 03/22/25 15:31 Dose Route Admin Location Dispensed Lot Number Expiration Date Pack age NDC NDC Order Worker 1,500 unit IM Left Gluteal 1 ea [id number] 11/29/26 [id number] [facility] Date _ cc: ~* Signed ADDENDUM by Dr. Mignon Washington DO on 03/22/25 at 1531 Assessment and Plan Assessment and Plan (1) : Status: Acute Qualifiers: Weeks of gestation: 11 weeks Qualified Code(s): Z3A.11 - 11 weeks gestation of Comment: elects NIPT with gender-carrier undecided (2) Supervision of high-risk : Status: Acute Comment: , LEIDY 10/05/25, PC Nadine Argueta( custody of 13yo nephew) THOMAS Walls (3) Advanced maternal age (AMA) in : Status: Acute Comment: nipt planned (4) Rh negative status during : Status: Acute Comment: rhogam @ 28 wks (5) Subchorionic hematoma: Status: Acute Comment: per care center- bleeding at 12 weeks. rhogam given 03/22/25 (6) Anxiety: Status: Acute (7) Hx of delivery, currently : Status: Acute Comment: delivered 27w4d last , SROM 19 wks, month in [facility] before cord prolapse/emergency CS (8) Hx of section: Status: Acute Comment: 2014 & 2017, plan RLTCS (9) Current in first trimester with history of placenta previa during prior : Status: Acute (10) Obesity affecting : Status: Acute Comment: HgbA1c (11) Benign intracranial hypertension: Status: Acute Comment: acetazolamide in the past. mfm consult. been over a year since she saw a neurologist Orders: Orders POC Urinalysis 2 Dip (Clinic) Today Rhogam Injection Today O26.899 - Other specified related conditions, unspecified trimester, Z67.91 - Unspecified blood type, Rh negative Medications: New RhoGAM Ultra-Filtered PLUS (rho(D) immune globulin) 1,500 units IM ONCE 1 ea 0RFNS O26.899 - Other specified related conditions, unspecified trimester, Z67.91 - Unspecified blood type, Rh negative Physical Exam Const alert, oriented x3, no apparent distress and healthy appearing General Appearance: cooperative; Negative for anxious Neck full ROM and supple Resp normal respiratory effort Effort and Inspection: able to speak in complete sentences GI soft to palpation and non-tender Inspection: gravid Palpation: soft; Negative for tender external exam normal Back/Spine no CVA tenderness Extremity normal to inspection, full ROM and no clubbing, cyanosis or edema General Extremity: Negative for calf tenderness or edema Skin Lesions: no lesions Rashes: no rashes Psych mental status grossly normal 03/22/25 1531 <Electronically signed by Mignon Vila DO> Date _ Mignon Washington DO cc: ~* Signed Intake Vital Signs 03/07/25 16:01 03/22/25 14:43 Height 5 ft 9 in 5 ft 9 in Weight: 301 lb BMI 44.4 BP 124/79 H Intake Visit Reasons: 11wk6d ob *per 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 Required: No Is patient in pain?: No Allergies minocycline Adverse Reaction (Severe, Verified 03/22/25 14:47) Hives Medications ?Medication ?Instructions ?Recorded ?Confirmed ?Type albuterol sulfate 90 mcg/actuation 2 puff inhalation Q 6H PRN 02/24/23 03/22/25 History aerosol inhaler mometasone-formoterol HFA 200 2 puff inhalation BID 03/22/25 History mcg-5 mcg/actuation aerosol inhaler (Dulera) choline 110 mg PO QDAY 03/07/2502/28 History multivitamin no.47-iron fum 27 cap PO 03/07/25 5 History mg-folate no.1 1 mg-dha 300 mg capsule (PNV-DHA) Last Menstrual Period: 12/29/24 Zika: Zika virus screening: Negative : No PFSH PFSH Medical History Polyneuropathy Hidradenitis suppurativa Asthma Headache Obesity Vertigo Peripheral vestibulopathy Fatigue delivery delivered Surgical History History of third molar tooth extraction Hx [...] 12yo housing: house number of children: 2 current occupational status: employed current occupation: [employer] current occupational exposures/hazards: No pets and animals: Yes (4 dogs, 2 Cats Avoid litterbox) pets and animals: cat(s)and dog(s) history of recent travel: No sexually active: Yes Smoking Status: Former smoker Tobacco: How many years used: 15 quit status: quit date established alcohol intake: current alcohol intake frequency: a few times a month details: not while substance use type: does not use well-balanced diet: about half the time caffeine: Yes Type: coffee Number of servings: 1 eating out: 1-3 times/week during the past year weight has: remained stable what type of physical activity do you participate in: none tamir/buddhist: None seatbelt use: always do you feel safe at home: Yes additional social history: [employer] work History 3 Elective abortions Hx Para 2 Spontaneous abortions Hx # Term Pregnancies Ectopic pregnancies Hx # Pregnancies Multiple births # of living children 2 Past Pregnancies Del. Date Name GA/Weeks Outcome Route Bth Weight Infant Gen Labor Lgth Anes th esia Del Locatn Provider FOB 06/15/15 Ellie 40 live - full term 8#9oz Female epidural [facility] Seal Titi 12/30/17 Nadine 27 live - 2#1oz Female general [facility] Delivery Date: 06/15/15 Last Updated by: Haley Vazquez IOL, stuck, CS Delivery Date: 12/30/17 Last Updated by: Haley Vazquez previa, cord prolapse, emergency c section HPI 11wk6d ob *per Details: CHERYL WOOD is a 34 year old who presents for routine OB visit. OB Visit LEIDY Calculator Estimated Delivery Date Method Current WG Current Estimate 10/05/25 LMP (Certain) 11w 6d Expected Delivery Route/Plan RLTCS Specific Issue/Plans Covid [...] Date -?-?-?-?-?-?-?-?-?-?-?-?- EGA Weight BP Urine Prot -?-?-?-?-?-?-?-?-?-?-?-?- Glucose FHR FuHt Pres Dilation -?-?-?-?-?-?-?-?-?-?-?-?- Effaced St Visit Note 03/07/25 -?-?-?-?-?-?-?-?-?-?-?-?- 9w 5d 296 lb 1 oz 136/88 -?-?-?-?-?-?-?-?-?-?-?-?- 160 -?-?-?-?-?-?-?-?-?-?-?-?- SM- CRL 2.7 cm c ons with LMP small possible hematoma 6 mm at cervx 03/22/25 -?-?-?-?-?-?-?-?-?-?-?-?- 11w 6d 301 lb 124/79 -?-?-?-?-?-?-?-?-?-?-?-?- 169 -?-?-?-?-?-?-?-?-?-?-?-?- JV- bleeding nba e today. cx closed on exam. blood is dark brown. measuring 12 weeks. NIPT and labs today. ACOG First Trimester First Trimester: Desire for , Alcohol, Tobacco Cessation, Illicit/Recreational Drug/Substance Use, Intimate Partner Violence, Barriers to care, Unstable Housing, Communication Barriers, Environmental/Work Hazards, Anticipated Course of Care, Toxoplasmosis Precations, Use of Any medications, Sexual activity, Exercise, Dental Care, Sauna/Hot tub use, Seat Belt use, Childbirth classes/Hospital facilities, Travel, Indications for Ultrasound and Screening for Aneuploidy; Discussed Coding Level of Care Code OB Routine Diagnoses 11 weeks gestation of Z3A.11 Weeks of gestation: 11 weeks Supervision of high-risk O09.90 Advanced maternal age (AMA) in Rh negative status during O26.899; Z67.91 Subchorionic hematoma O41.8X90; O46.8X9 Anxiety F41.9 Hx of delivery, currently O09.899 Hx of section Z98.891 Current in first trimester with history of placenta previa during prior O09.291 Obesity affecting O99.210 Benign intracranial hypertension G93.2 Assessment and Plan Assessment and Plan (1) : Status: Acute Qualifiers: Weeks of gestation: 11 weeks Qualified Code(s): Z3A.11 - 11 weeks gestation of Comment: elects NIPT with gender-carrier undecided (2) Supervision of high-risk : Status: Acute Comment: , LEIDY 10/05/25, Nadine Sanchez( custody of 13yo nephew) THOMAS Walls (3) Advanced maternal age (AMA) in : Status: Acute Comment: nipt planned (4) Rh negative status during : Status: Acute Comment: rhogam @ 28 wks (5) Subchorionic hematoma: Status: Acute Comment: per care center- bleeding at 12 weeks. rhogam given 03/22/25 (6) Anxiety: Status: Acute (7) Hx of delivery, currently : Status: Acute Comment: delivered 27w4d last , SROM 19 wks, month in [facility] before cord prolapse/emergency CS (8) Hx of section: Status: Acute Comment: 2014 & 2017, plan RLTCS (9) Current in first trimester with history of placenta previa during prior : Status: Acute (10) Obesity affecting : Status: Acute Comment: HgbA1c (11) Benign intracranial hypertension: Status: Acute Comment: acetazolamide in the past. mfm consult. been over a year since she saw a neurologist Orders: Orders POC Urinalysis 2 Dip (Clinic) Today Rhogam Injection Today O26.899 - Other specified related conditions, unspecified trimester, Z67.91 - Unspecified blood type, Rh negative Medications: New RhoGAM Ultra-Filtered PLUS (rho(D) immune globulin) 1,500 units IM ONCE 1 ea 0RF NS O26.899 - Other specified related conditions, unspecified trimester, Z67.91 - Unspecified blood type, Rh negative 03/22/25 1529 <Electronically signed by Mignon Vila DO> Date _ Mignon Washington DO Cosigner Signature: Date (if applicable) CC: ~ [facility] Work Phone: 1(837) 613-316409-09-2025 Evaluation note* Diagnosis Onset Date Resolution Status Admit Date Advanced maternal age (AMA) in acute March 07 025 3:44pm Anxiety acute March 07, 2025 3:44pm Benign intracranial hypertension acute March 07 3:44pm Current in first trimester with history of placenta previa during acute March 07, 2025 3:44pm Hx of section acute Se pt2024 3:44pm Hx of delivery, currently acute February 3:44pm Obesity affecting acute March 07, 2025 3:44pm acute March 07, 2025 3:44pm Rh negative status during acute March 07 025 3:44pm Subchorionic hematoma acute Sep 2024 3:44pm Supervision of high-risk acute March 07 025 3:44pm Hidradenitis suppurativa inactive March 07, 2025 3:44pm Advanced maternal age (AMA) in acute March 22, 2025 2:43pm Anxiety acute February 2:43pm Benign intracranial hypertension acute March 22, 2025 2:43pm Current in first trimester with history of placenta previa during acute March 22, 2025 2:43pm Hx of section acute Se pt2024 2:43pm Hx of delivery, currently acute February 2:43pm Obesity affecting acute March 22, 2025 2:43pm acute February 2:43pm Rh negative status during acute March 22, 2025 2:43pm Subchorionic hematoma acute Sep 2024 2:43pm Supervision of high-risk acute March 22, 2025 2:43pm [facility] Work Phone: 1(504) 561-275109-09-2025 Evaluation note* Diagnosis Onset Date Resolution Status Admit Date Advanced maternal age (AMA) in acute March 07, 2 025 3:44pm Anxiety acute March 07, 2025 3:44pm Benign intracranial hypertension acute March 07 025 3:44pm Current in first trimester with history of placenta previa during acute March 07, 2025 3:44pm Hx of section acute Se pt2024 3:44pm Hx of delivery, currently acute February 3:44pm Obesity affecting acute March 07, 2025 3:44pm acute March 07, 2025 3:44pm Rh negative status during acute March 07, 2 025 3:44pm Subchorionic hematoma acute Sep 2024 3:44pm Supervision of high-risk acute March 07, 2 025 3:44pm Hidradenitis suppurativa inactive March 07, 2025 3:44pm Advanced maternal age (AMA) in acute March 22, 2025 2:43pm Anxiety acute February 2:43pm Benign intracranial hypertension acute March 22, 2025 2:43pm Current in first trimester with history of placenta previa during acute March 22, 2025 2:43pm Hx of section acute Se ptember 2024 2:43pm Hx of delivery, currently acute February 2:43pm Obesity affecting acute March 22, 2025 2:43pm acute February 2:43pm Rh negative status during acute March 22, 2025 2:43pm Subchorionic hematoma acute Sep 2024 2:43pm Supervision of high-risk acute March 22, 2025 2:43pm Advanced maternal age (AMA) in acute April 06 1:02pm Anxiety acute April 06, 2 025 1:02pm Benign intracranial hypertension acute April 06 1:02pm Current in first trimester with history of placenta previa during acute April 062024 1:02pm Hx of section acute Oc tob2024 1:02pm Hx of delivery, currently acute April 06, 2025 1:02pm Hypertension affecting acute April 06 1:02pm Obesity affecting acute April 06, 2025 1:02pm acute April 06, 2 025 1:02pm Rh negative status during acute April 06 1:02pm Subchorionic hematoma acute Oct pepper 2024 1:02pm Supervision of high-risk acute April 06 1:02pm [facility] Work Phone: 1(775) 249-463309-09-2025 Progress [facility] [address] [place] [address], [address] [place] [address] OFFICE VISIT Date of Service: 03/07/25 MR#: [id number] Acct: [id number] Name: CHERYL WOOD Rep #: [id number] : 1990 Provider: Dr. Ketan Agee MD Age/Sex: 34/F Location[place] [facility] Status: Signed Intake Vital Signs 03/04/25 16:28 03/07/25 15:56 03/07/25 16:01 Height 5 ft 9 in 5 ft 9 in 5 ft 9 in Weight: 296 lb 1 oz BMI 43.7 BP 136/88 H Intake Visit Reasons: NOB LMP 7 LEIDY 10/05 *Per 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 Required: No Is patient in pain?: [...] Period: 12/29/24 Zika: Zika virus screening: Negative PFSH PFSH Medical History (Updated 03/07/25 @ 16:[address] Comfort Agee MD) Polyneuropathy Hidradenitis suppurativa Asthma Headache Obesity Vertigo Peripheral vestibulopathy Fatigue delivery delivered Surgical History (Updated 03/07/25 @ 16:[address] Comfort Agee MD) History of third molar tooth extraction [...] No current occupational status: employed current occupation: [employer] current occupational exposures/hazards: No pets and animals: [...] physical activity do you participate in: none tamir/buddhist: None seatbelt use: always do you feel safe at home: Yes additional social history: [employer] work History 3 Elective abortions Hx Para 2 Spontaneous abortions Hx # Term Pregnancies Ectopic pregnancies Hx # Pregnancies Multiple births # of living children 2 Past Pregnancies Del. Date Name GA/Weeks Outcome Route Bth Weight Infant Gen Labor Lgth Anesthesia Del Locatn Provider FOB 06/15/15 Adalynn 40 live - full term 8#9oz Female epidural [facility] Seal Titi 12/30/17 Nadine 27 live - 2#1oz Female general [facility] Delivery Date: 06/15/15 Last Updated by: Haley Vazquez IOL, stuck, CS Delivery Date: 12/30/17 Last Updated by: Haley Vazquez previa, cord prolapse, emergency c section HPI NOB LMP 7/3 LEIDY 10/05 *Per Details: CHERYL WOOD is [...] current plan of care details and appropriate ordersplaced. Relevant counseling for the gestational age provided. [...] intracranial pressure), Psychiatric (anxiety), D (Rh) Sensitized (A- ), Pulmonary (e.g.,TB,Asthma) (environmental adult onset asthma), Drug/latex allergies/reactions (minocycline), Tableau Developer surgery (2 c sections), Operations/hospitalizations (right shoulder, molar extraction), Relevant family history (See PFSH) and Other (obesity) and Negative: Diabetes, Heart disease, Kidney disease/UTI, Depression/ depression, Hepatitis/liver disease, Varicosities/phlebitis, Thyroid dysfunction, Trauma/domestic violence, History of bloodtransfusions, Seasonal allergies, Breast, Anesthetic complications, History of abnormal pap (DUE), Uterine anomaly/kenji, Infertility and Anti- retroviral treatment ACOG First Trimester First Trimester: Desire [...] complaints, except as documented, Denies cough and Deniesdyspnea GI Denies abdominal pain and Reports nausea [...] comfortable and no acute distress Orientation: alert [facility] Head: normal to inspection, normocephalic [...] : Status: Acute Comment: , LEIDY 10/05/25, PC EllieNadine( custody of 13yo nephew) THOMAS Titi (3) : Status: Acute Qualifiers: Weeks of [...] - Supervision of high risk , unspecified, unspecifiedtrimester HIV Today O09.90 - Supervision of high [...] high risk , unspecified, unspecified trimester 03/07/25 1634 maryam FERRELL> Date _ Comfort Agee MD Cosigner Signature: Date (if applicable) CC: ~ [facility]09-09-2025 Progress note Author Comfort Agee [facility] Note Date/Time March 07, 2025 4:34pm [facility] [address], [address] [place] [address] OFFICE VISIT Date of Service: 03/07/25 MR#: [id number] Acct: [id number] Name: CHERYL WOOD Rep #: [id number] : 1990 Provider: Dr. Ketan Agee MD Age/Sex: 34/F Location: [facility] Status: Signed Intake Vital Signs 03/04/25 16:28 03/07/25 15:56 03/07/25 16:01 Height 5 ft 9 in 5 ft 9 in 5 ft 9 in Weight: 296 lb 1 oz BMI 43.7 BP 136/88 H Intake Visit Reasons: NOB LMP 7/3 LEIDY 10/05 *Per 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 Required: No Is patient in pain?: [...] Period: 12/29/24 Zika: Zika virus screening: Negative [facility] PFS Medical History (Updated 03/07/25 @ 16:[address] Comfort Agee MD) Polyneuropathy Hidradenitis suppurativa Asthma Headache Obesity Vertigo Peripheral vestibulopathy Fatigue delivery delivered Surgical History (Updated 03/07/25 @ 16:[address] Comfort Agee MD) History of third molar tooth extraction [...] No current occupational status: employed current occupation: [employer] current occupational exposures/hazards: No pets and animals: [...] physical activity do you participate in: none tamir/buddhist: None seatbelt use: always do you feel safe at home: Yes additional social history: [employer] work History 3 Elective abortions Hx Para 2 Spontaneous abortions Hx # Term Pregnancies Ectopic pregnancies Hx # Pregnancies Multiple births # of living children 2 Past Pregnancies Del. Date Name GA/Weeks Outcome Route Bth Weight Gen Labor Lgth Anesthesia Del Locatn Provider FOB 06/15/15 Ellie 40 live - full term 8#9oz Female epidural [facility] Titi 12/30/17 Nadine 27 live - 2#1oz Female general [facility] Delivery Date: 06/15/15 Last Updated by: Haley Vazquez IOL, stuck, CS Delivery Date: 12/30/17 Last Updated by: Haley Vazquez previa, cord prolapse, emergency c section HPI NOB LMP 7/3 LEIDY 10/05 *Per Details: CHERYL WOOD is [...] intracranial pressure), Psychiatric (anxiety), D (Rh) Sensitized (A- ), Pulmonary (e.g.,TB,Asthma) (environmental adult onset asthma), Drug/latex allergies/reactions (minocycline), Tableau Developer surgery (2 c sections), Operations/hospitalizations (right shoulder, [...] comfortable and no acute distress Orientation: alert [facility] Head: normal to inspection, normocephalic [...] : Status: Acute Comment: , LEIDY 10/05/25, PC Nadine Argueta( custody of 13yo nephew) THOMAS Walls (3) [...] high risk , unspecified, unspecified trimester 03/07/25 1634 <Electronically signed by Comfort francisco MD> Date _ Comfort Agee MD Cosigner Signature: Date (if applicable) CC: ~ [facility] Work Phone: 1(778) 216-765409-06-2025 Discharge summary [facility] Medical Records Department [address] [place] [address] Emergency Department Summary 03/04/25 MR#: [id number] Acct: [id number] Name: CHERYL WOOD Rep #:[id number] : [...] she has yet to follow-up with an INSTRUMENTATION AND CONTROL TECHNICIAN. States she called on Thursday to be established with [place]. Patient states that she has had a ultrasound at the pregnancy[facility] center which showed a subchorionic hematoma. She states on she had intercourse in which she had some light vaginalbleeding which has since resolved. She followed up with the care center who told her it was likely secondary to the subchorionic hematoma and to be established with an INSTRUMENTATION AND CONTROL TECHNICIAN. Patient states she was thinking about it [...] intact Psych: Cooperative, appropriate mood and affect [facility] Medical History Fatigue delivery delivered Home Medications [...] has yet to follow- up with an INSTRUMENTATION AND CONTROL TECHNICIAN. States she called on Thursday to be established with [place]. Patient states that she has had a ultrasound at the carecammal which showed a subchorionic hematoma. She states on she had intercourse in which she had some light vaginal bleeding which has since resolved. She followed up with the care center who told her it was likely secondary to the subchorionic hematoma and to be established with an INSTRUMENTATION AND CONTROL TECHNICIAN. Patient states she was thinking aboutit today [...] is asymptomatic. Per the current guidelines from theSt. [facility] Hospital[facility] College ofobstetricians and information engineer there is no longer recommended routine Rh testingand RhoGAM administration for our negative patients at less than 12 weeks gestation following an or loss. Our guidelines here at [facility] is 14 weeks. However given patient is Rh- and has had complications with previous pregnancies, I will reach out with [place] INSTRUMENTATION AND CONTROL TECHNICIAN. I spoke with the nurse practitioner that [...] Primary [Primary Care Provider] - Print Language: Wallisian What to do if you have Problems For any increased pain, shortness of breath, bleeding, nausea or vomiting, chestpain, or any unexpected problems, contact your Primary Care Provider. Call [facility] ([phone]) or report tothe closest Emergency Room. Call 911 if necessary. 03/04/25 1807 Cosigner Signature (if applicable): CC: No Primary Care Physician ~ Signed [facility]09-06-2025 Discharge summary Author Tremayne Brice [facility] Note Date/Time March 04, 2025 6:07pm [facility] Medical Records Department [address] [place] [address] Emergency Department Summary 03/04/25 MR#: [id number] Acct: [id number] Name: SCOTTCHERYL SALCIDO Angelica Rep #:[id number] : 1990 34 From: [...] she has yet to follow-up with an INSTRUMENTATION AND CONTROL TECHNICIAN. States she called on Thursday to be established with [place]. Patient states that [facility] which showed a subchorionic hematoma. She states on she had intercourse in which she had some light vaginal bleeding which has since resolved. She followed up with the care center who told her it was likely secondary to the subchorionic hematoma and to be established with an INSTRUMENTATION AND CONTROL TECHNICIAN. Patient states she was thinking about it [...] intact Psych: Cooperative, appropriate mood and affect [facility] Medical History Fatigue delivery delivered Home Medications [...] she has yet to follow-up with an INSTRUMENTATION AND CONTROL TECHNICIAN. States she called on Thursday to be established with [place]. Patient states that she has had a ultrasound at the carecenter which showed a subchorionic hematoma. She states on she had intercourse in which she had some light vaginal bleeding which has since resolved. She followed up with the care center who told her it was likely secondary to the subchorionic hematoma and to be established with an INSTRUMENTATION AND CONTROL TECHNICIAN. Patient states she was thinking about it [...] asymptomatic. Per the current guidelines from the [place] [employer] ofobstetricians and information engineer there is no longer recommended routine Rh testingand RhoGAM administration for our negative patients at less than 12 weeks gestation following an or loss. Our guidelines here at [facility] is 14 weeks. However given patient is Rh- and has had complications with previous pregnancies, I will reach out with [place] INSTRUMENTATION AND CONTROL TECHNICIAN. I spoke with the nurse practitioner that [...] Discharge Plan Triage Chief Complaint: ED Provider: Treamyne Brice Dx/Rx/DC Orders Prescriptions: No Action albuterol [...] Primary [Primary Care Provider] - Print Language: Wallisian What to do if you have Problems For any increased pain, shortness of breath, bleeding, nausea or vomiting, chestpain, or any unexpected problems, contact your Primary Care Provider. Call [facility] ([phone]) or report to the closest Emergency Room. Call 911 if necessary. 03/04/25 3194 <Electronically signed by Tremayne Brice DO> Cosigner Signature (if applicable): CC: No Primary Care Physician ~ Signed [facility] Work Phone: 1(860) 305-288503-26-2025 Discharge summary [facility] Medical Records Department [address] [place] [address] Emergency Department Summary 09/21/24 MR#: [id number] Acct: [id number] Name: CHERYL WOOD Rep #:[id number] : [...] know when her last tetanus shot was. [facility] Medical History Fatigue delivery delivered Home Medications [...] Patient follow commands that she was at [facility] year is 2024. Sensation grossly intact in [...] Qty: 60 1RF Primary Care Provider: Care Physician,Grecia Primary Referrals: Care Physician,No Primary [Primary Care Provider] - Ebony Blood Donna, TECHNICAL INSTRUCTOR-C [[facility]] - Activity Restrictions/Additional Instructions: Follow schedule that you are given for the rabies vaccine series. Take antibiotics as prescribed ifyou develop surrounding redness or purulent drainage while on antibiotics you need to return to theemergency department. Follow-up your primary care physician or if you not having you referred to 1.Return with any other concerns. Your tetanus shot was updated today. Print Language: Wallisian Disposition Disposition: Home, Self Care What to do if you have Problems For any increased pain, shortness of breath, bleeding, nausea or vomiting, chestpain, or any unexpected problems, contact your Primary Care Provider. Call [facility] ([phone]) or report tothe closest Emergency Room. Call 911 if necessary. 09/21/249 Cosigner Signature (if applicable): CC: No Primary Care Physician ~ Signed [facility]03-26-2025 Discharge summary Author Abhi Cooper [facility] Note Date/Time September 21, 2024 9:4 8pm [facility] Medical Records Department [address] [place] [address] Emergency Department Summary 09/21/24 MR#: [id number] Acct: [id number] Name: CHERYL WOOD Rep #:[id number] : [...] know when her last tetanus shot was. [facility] Medical History Fatigue delivery delivered Home Medications [...] Patient follow commands that she was at [facility] year is 2024. Sensation grossly intact in [...] Qty: 60 1RF Primary Care Provider: Care Physician,Grecia Primary Referrals: Care Physician,No Primary [Primary Care Provider] - Ebony Blood Donna, TECHNICAL INSTRUCTOR-C [[facility]] - Activity Restrictions/Additional Instructions: Follow schedule that [...] tetanus shot was updated today. Print Language: Wallisian Disposition Disposition: Home, Self Care What to do if you have Problems For any increased pain, shortness of breath, bleeding, nausea or vomiting, chestpain, or any unexpected problems, contact your Primary Care Provider. Call [facility] ([phone]) or report to the closest Emergency Room. Call 911 if necessary. 09/21/24 0465 <Electronically signed by Abhi Cooper DO> Lee Signature (if applicable): CC: No Primary Care Physician ~ Signed [facility] Work Phone: 1(392) 184-385311-01-2024 History of Present illness Narrative* Shay Izquierdo MD - 04/29/2024 1:15 PM EDT Images from the original note were not included. 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 documented in this [facility]11-01-2024 Instructions* Patient Instructions* Shay Izquierdo MD [...] her core strength increases. documented in this [facility]10-25-2024 History of Present illness Narrative* Jason Castro, SHIRT CLOSER - DANCING MASTER - 04/22/2024 1:00 PM EDT Images from the original note were not included. [facility] [place] [address] [place] [address] [address] [facility] [address] Dept: [phone] Dept Cheryl Anne Scottcortezmonie [id number] 04/22/2024 Problem List: Lumbar pain Lumbar radiculopathy, left Lumbar spondylosis Lumbar degenerative disc disease Left hip pain (M54.50) Lumbar pain (M54.16) Lumbar radiculopathy (M47.816) Lumbar spondylosis (M51.362) Degeneration of intervertebral disc of lumbar region with discogenic back pain and lower extremity pain (M25.552) Left hip pain Chief Complaint 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 Overall Financial Resource Strain (CARDIA) Difficulty of Paying Living Expenses: Not hard at all Food Insecurity: No Food Insecurity (03/21/2022) Received from [facility] Hunger Vital Sign Worried About Running Out of Food in the Last Year: Never true Ran Out of Food in the Last Year: Never true Transportation Needs: No Transportation Needs (03/21/2022) Received from [facility] PRAPARE - Transportation Lack of Transportation (Medical): No Lack of Transportation (Non-Medical): No Physical Activity: Inactive (03/21/2022) [facility] Exercise Vital Sign Days of Exercise per Week: 0 days Minutes of Exercise per Session: 0 min Stress: No Stress Concern Present (03/21/2022) Received from [facility] [place] [employer] - Occupational Stress Questionnaire Feeling of Stress : Only a little Social Connections: Moderately Isolated (03/21/2022) Received from [facility] Social Connection and Isolation Panel [NHANES] Frequency of Communication with Friends and Family: More than three times a week Frequency of Social Gatherings with Friends and Family: Once a week Attends Moravian Services: Never Active Member of Clubs or Organizations: No Attends Club or Organization Meetings: Never Marital Status: Living with partner Intimate Partner Violence: Not At Risk (03/21/2022) Received from [facility] Humiliation, Afraid, Rape, and Kick questionnaire Fear of Current or Ex-Partner: No Emotionally Abused: No Physically Abused: No Sexually Abused: No Housing Stability: Not on file Family History Problem Relation Name Age of Onset No Known Problems Mother Gael More (UNDERWEAR WELTER at [facility]) Heart disease Father Sae COPD Father [...] I had a discussion with Cheryl Anne Tiannaana luisa about her symptoms. We independently reviewed her [...] The conservative management includes medications, injections, exercise, inspector health care facilities, acupuncture, massage therapy, and phys ical therapy. [...] of PT if no improvement with Jason Skeggs SHIRT CLOSER-DANCING MASTER The risks and appropriate dosing of muscle [...] CNP 04/22/2024 at 1:45 PM Dictated using GREE Version 2.4 Proof read however unrecognized voice recognition errors may have occurred documented in this [facility]10-25-2024 Instructions* Patient Instructions* Mignon Szymanski ATC - 04/22/2024 1:00 PM EDT Images from the original note were not included. [facility] at [address] [place] [address] Call central scheduling to schedule new patient appointment [phone] documented in this [facility]10-19-2024 Emergency department Note* Laura Mack RN - 04/16/2024 6:09 PM EDT Clarified with Gissel LUNDBERG that 60mg toradol to be given and dosage was verified Laura Mack RN 04/16/241809 [id number] Emergency department Note* Laura Mack RN - 04/16/2024 6:09 PM EDT Clarified with Gissel LUNDBERG that 60mg toradol to be given and dosage was verified Laura Mack RN 04/16/241809 * Gissel Hernandez PA-C - 04/16/2024 5:33 PM EDT [facility] ED eMERGENCY dEPARTMENT eNCOUnter Pt Name: Cheryl [...] retention. No saddle paresthesias. She tried some egte-sag-fgghtsj medications with no relief of her symptoms. 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 Overall Financial Resource Strain (CARDIA) Difficulty of Paying Living Expenses: Not hard at all Food Insecurity: No Food Insecurity (03/21/2022) Re[facility] from [facility] Hunger Vital Sign Worried About Running Out of Food in the Last Year: Never true Ran Out of Food in the Last Year: Never true Transportation Needs: No Transportation Needs (03/21/2022) Received from [facility] PRAPARE - Transportation Lack of Transportation (Medical): No Lack of Transportation (Non-Medical): No Physical Activity: Inactive (03/21/2022) Received from [facility] Exercise Vital Sign Days of Exercise per Week: 0 days Minutes of Exercise per Session: 0 min Stress: No Stress Concern Present (03/21/2022) Received from [facility] [place] [employer] - Occupational Stress Questionnaire Feeling of Stress : Only a little Social Connections: Moderately Isolated (03/21/2022) Received from [facility] Social Connection and Isolation Panel [NHANES] Frequency of Communication with Friends and Family: More than three times a week Frequency of Social Gatherings with Friends and Family: Once a week Attends Moravian Services: Never Active Member of Clubs or Organizations: No Attends Club or Organization Meetings: Never Marital Status: Living with partner Intimate Partner Violence: Not At Risk (03/21/2022) Received from [facility] Humiliation, Afraid, Rape, and Kick questionnaire [...] excessive physical activity. She can follow-up with [facility] orthopedics and sports medicine. She can [...] Discharge 04/16/2024 06:01:44 PM PATIENT REFERRED TO: [facility] [place] [phone] DISCHARGE MEDICATIONS: Discharge Medication List as of [...] Starting 04/16/2024, Until Thu04/26/2024 at 2359, Normal @[facility]([id number]:LAST:1)@ (Please note: Portions of this note were [...] opened a door today documented in this [facility]10-19-2024 Emergency department Triage note* Laura Mack RN - 04/16/2024 5:33 PM EDT Pt c.o lower back pain radiating down L leg, states the pain worsened when she opened a door today [id number] Physician Emergency department Note* Gissel Hernandez PA-C - 04/16/2024 5:33 PM EDT [facility] ED eMERGENCY dEPARTMENT eNCOUnter Pt Name: Cheryl [...] retention. No saddle paresthesias. She tried some wpvv-tep-htbwlup medications with no relief of her symptoms. 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 Overall Financial Resource Strain (CARDIA) Difficulty of Paying Living Expenses: Not hard at all Food Insecurity: No Food Insecurity (03/21/2022) [facility] Hunger Vital Sign Worried About Running Out of Food in the Last Year: Never true Ran Out of Food in the Last Year: Never true Transportation Needs: No Transportation Needs (03/21/2022) [facility] PRAPARE - Transportation Lack of Transportation (Medical): No Lack of Transportation (Non-Medical): No Physical Activity: Inactive (03/21/2022) [facility] Exercise Vital Sign Days of Exercise per Week: 0 days Minutes of Exercise per Session: 0 min Stress: No Stress Concern Present (03/21/2022) [facility] [place] [employer]ational Health - Occupational Stress Questionnaire Feeling of Stress : Only a little Social Connections: Moderately Isolated (03/21/2022) [facility] Social Connection and Isolation Panel [NHANES] Frequency of Communication with Friends and Family: More than three times a week Frequency of Social Gatherings with Friends and Family: Once a week Attends Moravian Services: Never Active Member of Clubs or Organizations: No Attends Club or Organization Meetings: Never Marital Status: Living with partner Intimate Partner Violence: Not At Risk (03/21/2022) [facility] Humiliation, Afraid, Rape, and Kick questionnaire Fear of Current or Ex-Partner: No Emotionally Abused: No Physically Abused: No Sexually Abused: No SCREENINGS PHYSICAL EXAM (5+ for level 4, 8+ for level 5) @KELVIN@ Physical Exam Vitals and nursing note reviewed. [...] excessive physical activity. She can follow-up with [facility]. She can [...] Discharge 04/16/2024 06:01:44 PM PATIENT REFERRED TO: [facility] - [address] [address] DISCHARGE MEDICATIONS: Discharge Medication List [...] Starting 04/16/2024, Until Thu04/26/2024 at 2359, Normal @[facility]([id number]:LAST:1)@ (Please note: Portions of this note were completed with a voice recognition program. Efforts were made to edit thedictations but occasionally words and phrases are mis-transcribed.) Form v2016.J.[id number] Gissel Hernandez PA-C (electronically signed) Emergency Medicine Provider Gissel Hernandez PA-C 04/16/241958 [id number] History of Present illness Narrative* Wilfredo Viera Amado, - 02/06/2023 11:00 AM EDT Images from the original note were not included. [facility] [address] [place] [id number] Visit type: Established Patient Reason for Visit: [...] scheduled to see Neurologist, Dr. Garvey in [place] in about 2 weeks. Review of Systems [...] Onset No Known Problems Mother Gael More ([facility] [facility] at [facility]) Heart disease Father Sae COPD Father [...] or Babinski. Toes downgoing and no clonus. Fecktr-ir-hirs, tandem and Romberg testing is normal. Recheck blood pressure slightly elevated. Reviewed multiple studies including cervical MRI. EMG of the upper or lower extremities. Lumbar back x-rays. Reviewed lab work. documented in this encounterSACMC Healthcare [id number] Telephone encounter Note* Telephone Encounter - Jane Downs - 01/01/2023 3:04 PM EDT Extension's new tracking # [id number] Auth # [id number] good until 01/31/23. Pt advised and is going to schedule herself [id number] Miscellaneous Notes* Telephone Encounter - Jane Downs - 01/01/2023 3:04 PM EDT Extension's new tracking # [id number] Auth # [id number] good until 01/31/23. Pt advised and is going to schedule herself * Telephone Encounter - Fe Mclean - 01/01/2023 9:08 AM EDT Name of caller: Susy Contact phone number: [phone] Relationship to Patient: patient Provider: Dr. Fischer Practice: [facility] Chief Complaint/Reason for Call: The patient is [...] return their call: No documented in this encounterSACMC Healthcare [id number] Telephone encounter Note* Telephone Encounter - Fe Mclean - 01/01/2023 9:08 AM EDT Name of caller: Susy Contact phone number: [phone] Relationship to Patient: patient Provider: Dr. Fischer Practice: [facility] Chief Complaint/Reason for Call: The patient is [...] business hours to return their call: No [facility] [id number] Telephone encounter Note* Telephone Encounter - Shanonn Butt MA - 12/31/2022 12:[address] [facility] [id number] Miscellaneous Notes* Telephone Encounter - Shannon Butt MA - 12/31/2022 12:31 PM EDT Rx loaded documented in this [facility]06-05-2023 Note* Addendum Note - Briseyda Dubois - 12/01/2022 3:51 PM EDTAddended by: BRISEYDA DUBOIS on: 12/01/2022 03:51 PM Modules accepted: Orders [id number] Miscellaneous Notes* Addendum Note - Briseyda Bridgese - 12/01/2022 3:51 PM EDTAddended by: BRISEYDA [...] MRI of cervical spine. documented in this [facility]04-24-2023 Telephone encounter Note* Telephone Encounter - Kacey Means - 10/20/2022 12:30 PM EDT Orders pended for doctor signature [id number] Miscellaneous Notes* Telephone Encounter - Kacey Means - 10/20/2022 12:30 PM EDT Orders pended for doctor signature * Telephone Encounter - Kacey Means - 10/20/2022 12:25 PM EDT ----- Message from Shannon Butt MA sent at 10/20/2022 11:21 AM EDT ----- Patient was given the number to schedule with neuro patient would like the MRI of cervical spine. documented in this encounterSACMC Healthcare [id number] Telephone encounter Note* Telephone Encounter - Kacey Means - 10/20/2022 12:25 PM EDT ----- Message from Shannon Butt MA sent at 10/20/2022 11:21 AM EDT ----- Patient was given the number to schedule with neuro patient would like the MRI of cervical spine. [id number] Telephone encounter Note* Telephone Encounter - Briseyda Dubois - 10/09/2022 10:05 AM EDT Orders pended for doctor's signature [id number] Miscellaneous Notes* Telephone Encounter - Briseyda Dubois [...] exams if she agrees. documented in this [facility]04-13-2023 Telephone encounter Note* Telephone Encounter - [...] her. Schedule those exams if she agrees. [id number] Telephone encounter Note* Telephone Encounter - Briseyda Dubois - 08/05/2022 12:29 PM EST Referral pended for dx and doctor's signature [id number] Miscellaneous Notes* Telephone Encounter - Briseyda Dubois - 08/05/2022 12:29 PM EST Referral pended for dx and doctor's signature * Telephone Encounter - Wilfredo Fischer DO - 08/03/2022 3:38 PM EST Need list of neurologist this patient may consult documented in this [facility]02-05-2023 Telephone encounter Note* Telephone Encounter - Wilfredo Fischer DO - 08/03/2022 3:38 PM EST Need list of neurologist this patient may consult [id number] History of Present illness Narrative* Wilfredo Fischer DO - 08/01/2022 8:40 AM EST Images from the original note were not included. [facility] [address] [facility] [address] Visit type: Established Patient Reason for Visit: [...] Onset No Known Problems Mother Gael More ([employer] [facility] at [facility]) Heart disease Father Sae COPD Father [...] normal. Her gait is normal. documented in [facility]01-10-2023 Telephone encounter Note* Telephone Encounter - Leah Leslie - 07/08/2022 2:23 PM EST Name of caller: Cheryl Contact phone number: [phone] Relationship to Patient: patient Provider: Dr. Fischer Practice: [facility] Chief Complaint/Reason for Call: Patient calling in stating that she missed a call from the office.No messages seen in chart. Please Advise. Best time of day caller can be reached: ANY Patient advised that office/PCP has 24-48 business hours to return their call: Yes [id number] Miscellaneous Notes* Telephone Encounter - Leah Leslie - 07/08/2022 2:23 PM EST Name of caller: Cheryl Contact phone number: [phone] Relationship to Patient: patient Provider: Dr. Fischer Practice: [facility] Chief Complaint/Reason for Call: Patient calling in stating that she missed a call from the office.No messages seen in chart. Please Advise. Best time of day caller can be reached: ANY Patient advised that office/PCP has 24-48 business hours to return their call: Yes documented in this [facility]10-08-2021 NoteHNO ID: [id number] Author: Ayan Sadler, DO Service: ? Author [...] with all of its relevant components. Ayan Haley Sadler DO April 05, 2021 8:56 [facility] Evaluation note* Diagnosis Instability of right [...] acute Headache acute Hypersomnia acute Polyneuropathy acute [facility] Work Phone: Evaluation note* Diagnosis Onset Date Resolution Status Hypersomnia acute Polyneuropathy acute Fatigue chronic Encounter for procedure none active Cellulitis and abscess of foot acute Fatigue chronic Fatigue chronic Benign intracranial hypertension acute Fibromyalgia acute Headache acute Hypersomnia acute [facility] Work Phone: Evaluation note* Diagnosis Acute low back pain with sciatica, sciatica laterality unspecified, unspecified back pain laterality- Primary [facility] Diagnosis Lumbar pain- Primary Lumbago Lumbar radiculopathy Thoracic or lumbosacral neuritis or radiculitis, unspecified Lumbar spondylosis Lumbosacral spondylosis without myelopathy Degeneration of intervertebral disc of lumbar region with discogenic back pain and lower extremity pain Left hip pain Pain in joint, pelvic region and thigh [facility]* Diagnosis Tear of left acetabular labrum, initial encounter- Primary Left hip pain Pain in joint, pelvic region and thigh Tendinopathy of gluteus medius documented [facility] this encounter [facility]* Diagnosis Left hip pain Pain in joint, pelvic region and thigh documented in this encounter [facility]* Diagnosis Tactile hypesthesia- Primary Disturbance of skin sensation Lumbar radiculopathy Thoracic or lumbosacral neuritis or radiculitis, unspecified documented in this encounter [facility]* Diagnosis Cough, unspecified- Primary documented in this encounter [facility]* Diagnosis Cough, unspecified- Primary documented in this encounter [facility]* Diagnosis Tactile hypesthesia Disturbance of skin sensation Lumbar radiculopathy Thoracic or lumbosacral neuritis or radiculitis, unspecified Bilateral hip pain Pain in joint, pelvic region and thigh documented in this encounter [facility]* Diagnosis Lumbar radiculopathy, chronic- Primary documented in this encounter [facility]* Diagnosis Lumbar radiculopathy, chronic- Primary Paresthesia of upper extremity Class 3 severe obesity due to excess calories with serious comorbidity and body mass index (BMI) of 40.0 to 44.9 in adult (HCC) documented in this encounter [facility] HealthEvaluation noteNo assessment information availableWAultman Alliance Community Hospital Work Phone: Evaluation note* Diagnosis Onset Date Resolution Status Admit Date Advanced maternal age (AMA) in acute March 07 3:44pm Anxiety acute March 07, 2025 3:44pm Benign intracranial hypertension acute March 07 3:44pm Current in first trimester with history of placenta previa during acute March 07, 2025 3:44pm Hx of section acute Se ptember 2024 3:44pm Hx of delivery, currently acute February 3:44pm Obesity affecting acute March 07, 2025 3:44pm acute March 07, 2025 3:44pm Rh negative status during acute March 07 025 3:44pm Subchorionic hematoma acute Sep tember 2024 3:44pm Supervision of high-risk acute March 07 3:44pm Hidradenitis suppurativa inactive March 07, 2025 3:44pm [facility] Work Phone: Hospital Discharge instructions* Attachments The following attachments cannot be sent through Care Everywhere. * Sore Throat (Wallisian) documented in this [facility] Work Phone: Hospital Discharge instructions* Attachments The following attachments cannot be sent through Care Everywhere. * Sciatica Discharge Instructions (Wallisian) * Sciatica Exercises (Wallisian) [facility] Additional Instructions Follow schedule that you are given for the rabies vaccine series. Take antibiotics as prescribed if you develop surrounding redness or purulent drainage while on antibiotics you need to return to the emergency department. Follow-up your primary care physician or if you not having you referred to 1. Return with any other concerns. Your tetanus shot was updated today.[facility] Work Phone: Hospital Discharge instructionsAdditional Instructions Follow-up with [place] [facility]. Call to make an appointment if they do not call you. Return back to the ED if symptoms change or worsen.[facility] Work Phone: Progress note Author Tiarra Ibrahim [facility] Note Date/Time April 06, 2025 1: 31pm [facility] [address] [place] [address], [address] [place] [address] OFFICE VISIT Date of Service: 04/06/25 MR#: [id number] Acct: [id number] Name: CHERYL WOOD Rep #: [id number] : 1990 Provider: GONZÁLEZ Ibrahim Age/Sex: 34/F [place] [facility] Status: Signed Intake Vital Signs 03/07/25 16:01 03/22/25 14:43 04/06/25 13:07 Height 5 ft 9 in 5 ft 9 in 5 ft 9 in Weight: 297 lb 6 oz BMI 43.9 BP 142/82 H Intake Visit Reasons: 14wk ob 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 Required: No Is patient in pain?: No Allergies minocycline Adverse Reaction (Severe, Verified 04/06/25 13:04) Hives Medications ?Medication ?Instructions ?Recorded ?Confirmed ?Type albuterol sulfate 90 mcg/actuation 2 puff inhalation Q 6H PRN 02/24/23 04/06/25 History aerosol inhaler mometasone-formoterol HFA 200 2 puff inhalation BID 04/06/25 History mcg-5 mcg/actuation aerosol inhaler (Dulera) choline 110 mg PO QDAY 03/07/25 10/0 03/23 History multivitamin no.47-iron fum 27 cap PO 03/07/25 5 History mg-folate no.1 1 mg-dha 300 mg capsule (PNV-DHA) labetalol 200 mg tablet 200 mg PO BID #60 tabs 04/0604/06/25 Rx Last Menstrual Period: 12/29/24 Zika: Zika virus screening: Negative : No PFSH PFSH Medical History Polyneuropathy Hidradenitis suppurativa Asthma Headache Obesity Vertigo Peripheral vestibulopathy Fatigue delivery delivered Surgical History History of third molar tooth extraction Hx [...] 12yo housing: house number of children: 2 current occupational status: employed current occupation: [employer] current occupational exposures/hazards: No pets and animals: Yes (4 dogs, 2 Cats Avoid litterbox) pets and animals: cat(s)and dog(s) history of recent travel: No sexually active: Yes Smoking Status: Former smoker Tobacco: How many years used: 15 quit status: quit date established alcohol intake: current alcohol intake frequency: a few times a month details: not while substance use type: does not use well-balanced diet: about half the time caffeine: Yes Type: coffee Number of servings: 1 eating out: 1-3 times/week during the past year weight has: remained stable what type of physical activity do you participate in: none tamir/buddhist: None seatbelt use: always do you feel safe at home: Yes additional social history: [employer] work History 3 Elective abortions Hx Para 2 Spontaneous abortions Hx # Term Pregnancies Ectopic pregnancies Hx # Pregnancies Multiple births # of living children 2 Past Pregnancies Del. Date Name GA/Weeks Outcome Route Bth Weight Infant Gen Labor Lgth Anesthesia Del Locatn Provider FOB 06/15/15 Ellie 40 live - full term 8#9oz [facility] Nadine 27 live - 2#1oz Female general [facility] Delivery Date: 06/15/15 Last Updated by: Haley Vazquez IOL, stuck, CS Delivery Date: 12/30/17 Last Updated by: Haley Vazquez previa, cord prolapse, emergency c section HPI 14wk ob Details: CHERYL WOOD is a 34 year old who presents for routine OB visit. OB Visit LEIDY Calculator Estimated Delivery Date Method Current WG Current Estimate 10/05/25 LMP (Certain) 14w 0d Expected Delivery Route/Plan RLTCS Specific Issue/Plans Covid [...] Date -?-?-?-?-?-?-?-?-?-?-?-?- EGA Weight BP Urine Prot -?-?-?-?-?-?-?-?-?-?-?-?- Glucose FHR FuHt Pres Dilation -?-?-?-?-?-?-?-?-?-?-?-?- Effaced St Visit Note 03/07/25 -?-?-?-?-?-?-?-?-?-?-?-?- 9w 5d 296 lb 1 oz 136/88 -?-?-?-?-?-?-?-?-?-?-?-?- 160 -?-?-?-?-?-?-?-?-?-?-?-?- SM- CRL 2.7 cm c ons with LMP small possible hematoma 6 mm at cervx 03/22/25 -?-?-?-?-?-?-?-?-?-?-?-?- 11w 6d 301 lb 124/79 Negative -?-?-?-?-?-?-?-?-?-?-?-?- Negative 169 -?-?-?-?-?-?-?-?-?-?-?-?- JV- bleeding nba e today. cx closed on exam. blood is dark brown. measuring 12 weeks. NIPT and labs today. 04/06/25 -?-?-?-?-?-?-?-?-?-?-?-?- 14w 0d 297 lb 6 oz 142/82 Nega tive -?-?-?-?-?-?-?-?-?-?-?-?- Negative 151 -?-?-?-?-?-?-?-?-?-?-?-?- MH-No VB since l ast exam. Note elevated BP today and states has at home also. Some pounding in head. Consult JV, start labetalol. RTO 1 wk BP ch. Br US confirm FHT ACOG First Trimester First Trimester: Desire for , Alcohol, Tobacco Cessation, Illicit/Recreational Drug/Substance Use, Intimate Partner Violence, Barriers to care, Unstable Housing, Communication Barriers, Environmental/Work Hazards, Anticipated Course of Care, Toxoplasmosis Precations, Use of Any medications, Sexual activity, Exercise, Dental Care, Sauna/Hot tub use, Seat Belt use, Childbirth classes/Hospital facilities, Travel, Indications for Ultrasound and Screening for Aneuploidy; Discussed ROS Const Reports system reviewed and no additional complaints, except as documented GI Denies abdominal pain, Denies nausea and Denies vomiting Exam Const General: cooperative Nutritional Appearance: well nourished GI Palpation: soft, nontender and other (gravid) Results POC Urinalysis 2 Dip (Clinic) Office Urine Glucose Negative Last Edit by Nidia Ordaz on 04/06/25 13 :15 Office Urine Protein Negative Last Edit by Nidia Ordaz on 04/06/25 13 :15 Coding Level of Care Code Off vis,est,level 3 Diagnoses Supervision of high risk in second trimester O09.92 Trimester: second trimester Hypertension affecting in second trimester O16.2 Trimester: second trimester 14 weeks gestation of Z3A.14 Weeks of gestation: 14 weeks Advanced maternal age (AMA) in Rh negative status during in second trimester O26.892; Z67.91 Trimester: second trimester Subchorionic hematoma in second trimester, single or unspecified fetus O41.8X20; O46.8X2 Fetus number: single or unspecified fetus Trimester: second trimester Anxiety F41.9 Hx of delivery, currently O09.899 Hx of section Z98.891 Current in first trimester with history of placenta previa during prior O09.291 Obesity affecting in second trimester, unspecified obesity type O99.212 Trimester: second trimester Obesity type affecting : unspecified obesity Benign intracranial hypertension G93.2 Assessment and Plan Assessment and Plan (1) Supervision of high-risk : Status: Acute Qualifiers: Trimester: second trimester Qualified Code(s): O09.92 - Supervision of high risk , unspecified, second trimester Comment: PRR , LEIDY 10/05/25, PC Nadine Argueta( custody of 13yo nephew) THOMAS Walls (2) Hypertension affecting : Status: Acute Qualifiers: Trimester: second trimester Qualified Code(s): O16.2 - Unspecified maternal hypertension, second trimester Comment: Labetalol. BP Ch 1 wk (3) : Status: Acute Qualifiers: Weeks of gestation: 14 weeks Qualified Code(s): Z3A.14 - 14 weeks gestation of Comment: NIPT low risk. Horizon neg. (4) Advanced maternal age (AMA) in : Status: Acute Comment: nipt LR (5) Rh negative status during : Status: Acute Qualifiers: Trimester: second trimester Qualified Code(s): O26.892 - Other specified related conditions, second trimester; Z67.91 - Unspecified blood type, Rh negative Comment: rhogam @ 28 wks, Given 03/22/25 for bleeding (6) Subchorionic hematoma: Status: Acute Qualifiers: Fetus number: single or unspecified fetus Trimester: second trimester Qualified Code(s): O41.8X20 - Other specified disorders of amniotic fluid and membranes, second trimester, not applicable or unspecified; O46.8X2 - Other antepartum hemorrhage, second trimester Comment: per care center- bleeding at 12 weeks. rhogam given 03/22/25 (7) Anxiety: Status: Acute (8) Hx of delivery, currently : Status: Acute Comment: delivered 27w4d last , SROM 19 wks, month in [facility] before cord prolapse/emergency CS (9) Hx of section: Status: Acute Comment: 2014 & 2017, plan RLTCS (10) Current in first trimester with history of placenta previa during prior : Status: Acute (11) Obesity affecting : Status: Acute Qualifiers: Trimester: second trimester Obesity type affecting : unspecified obesity Qualified Code(s): O99.212 - Obesity complicating , second trimester Comment: HgbA1c (12) Benign intracranial hypertension: Status: Acute Comment: acetazolamide in the past. mfm consult. been over a year since she saw a neurologist Orders: Orders POC Urinalysis 2 Dip (Clinic) Today Medications: New labetalol 200 mg PO BID 60 tabs 2RF Plan problem list reviewed and updated for most current plan of care and appropriate orders placed. Relevant counseling for the gestational age appropriate provided and ACOG education checklist updated. Continue routine care and follow up. 04/06/25 3020 <Electronically signed by Tiarra tam TECHNICAL INSTRUCTOR TECHNICAL INSTRUCTOR-C> Date _ Tiarra Ibrahim TECHNICAL INSTRUCTOR TECHNICAL INSTRUCTOR-C Cosigner Signature: Date (if applicable) CC: ~ [facility] Work Phone: Reechoecho for referral (narrative)* Consultation (Routine) - Pending Review Specialty Diagnoses / Procedures Referred By Contac t Referred To Contact Orthopedic Surgery Diagnoses Acute low back pain with sciatica, sciatica laterality unspecified, unspecified back pain laterality Gissel Hernandez PA-C [address] [place] [address] [facility] [address] [place] [address] Referral ID Status Reason Start Date Expiration Date Visits Requested Visits Authorized [id number] Pending Review Specialty Services Required 04/16/2025 1 1 [employer] HighlighterRetaj for referral (narrative)* Consultation (Routine) - Pending Review Specialty Diagnoses / Procedures Referred By Contac t Referred To Contact Neurology Diagnoses Lumbar radiculopathy, chronic Procedures IN OFFICE/OUTPATIENT [facility] MDM 60-74 MINUTES Wilfredo Fischer DO [address] [place] [address] Herberth Steele MD [address] [place] [address] Referral ID Status Reason Start Date Expiration Date Visits Requested Visits Authorized [id number] Pending Review Specialty Services Required 08/05/2022 08/05/2023 1 1 [facility] HighlighterReechoecho for referral (narrative)No reason for referral information availableWAultman Alliance [facility] Work Phone: Summary Purpose Family History No Family History Records Found Relationship Condition Age at Onset Recorded Date/T [...] 60 grandfather Malignant neoplasm Unknown Advance Directives No Advanced Directives Records FoundDocuments on File Type Date Recorded Patient Die Repair Expl anation ACP-Advance Directive ACP-Power of Kiln Setter Latest Code Status on File Code Status Date Activated Date Inactivated Comments Full Code 12/30/2017 11:01 PM 01/01/2018 2:47 PM Full Code 12/04/2017 11:48 PM 12/30/2017 11:01 PM Documents on File Type Date Recorded Patient Die Repair Expl anation ACP-Advance Directive ACP-Power of Kiln Setter Latest Code Status on File Code Status [...] Will No April 12 6:40pm Power of Kiln Setter No April 12, 2021 6:40pm Advance Directive Response Recorded Date/ Time Living Will No June 23, 023 3:04pm Power of Kiln Setter No June 23, 2023 3:04pm Advance Directive Response Recorded Date/ Time Living Will No September 21, 2024 7:12pm Do you have a Healthcare Power of Kiln Setter? No September 21, 2024 7:12pm Advance Directive Response Recorded Date/ Time Do you have a Healthcare Power of Kiln Setter? No March 04, 2025 4:58pm Reason for Referral Status Reason Specialty Diagnoses / Procedures Referred By Contact Referred To Contact Open Specialty Services Required Orthopedic Surgery Diagnoses Acute pain of right shoulder Niurka Rivas MD [address] [place] [address] Inés Rosario [phone] [place] [address] Scheduling Instructions [facility] - [place] [address] Status Reason Specialty Diagnoses / Procedures Referre d By Contact Referred To Contact Closed Radiology Diagnoses Instability of right shoulder joint Procedures XR SHOULDER ARTHROGRAM RIGHT S&I Pinky Romero MD 1 [facility] [address] [place] [address] Status Reason Specialty Diagnoses / Procedures Referred By Contact Referred To Contact Open Specialty Services Required Otolaryngology Diagnoses Mouth pain Throat pain [place], [employer]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 [address] Referral ID Status Reason Start Date Expiration Date V isits Requested Visits Authorized [id number] Incomplete 10/09/2022 04/07/2023 1 1 Specialty Diagnoses / Procedures Referred By Contac t Referred To Contact Radiology Diagnoses Lumbar radiculopathy, chronic Procedures MR cervical spine wo contrast Wilfredo Fischer F, DO [address] [place] [address] Referral ID Status Reason Start Date Expiration Date V isits Requested Visits Authorized [id number] Pending Review 10/20/2022 04/18/2023 1 1 Specialty Diagnoses / Procedures Referred By Contac t Referred To Contact Radiology Diagnoses Paresthesia of upper extremity Abnormal NCS (nerve conduction studies) Procedures MR cervical spine wo contrast Amado Wilfredo F, DO [address] [place] [address] Referral ID Status Reason Start Date Expiration Date V isits Requested Visits Authorized [id number] Authorized 11/18/2022 05/17/2023 1 1 Specialty Diagnoses / Procedures Referred By Contac t Referred To Contact Diagnoses Cough, unspecified Procedures Complete PFT pre and post bronchodilator Wilfredo Fischer DO [address] [place] [id number] Referral ID Status Reason Start Date Expiration Date V isits Requested Visits Authorized [id number] Incomplete 04/17/2022 10/14/2022 1 1 Discharge Instructions [...] sent through Care Everywhere. * Shoulder Sprain (Wallisian) documented in this encounter Assessments Diagnosis Acute [...] Date March 04, 2025 4:26pm NOB LMP 7/3 LEIDY 4/9 *Per February 3:44pm Reason for Visit Admit Date Advanced maternal age (AMA) in March 07, 2025 3:44pm Anxiety March 07, 2025 3:44pm Benign intracranial hypertension [facility] 2024 3:44pm Current in first t [facility] with history of placenta previa during March 07, 2025 3:44pm Hx of section March 07 3:44pm Hx of delivery, currently pregna nt March 07, 2025 3:44pm Obesity affecting February 3:44pm March 07, 2025 3:44pm Rh negative status during [facility] 2024 3:44pm Subchorionic hematoma March 07 3:44pm Supervision of high-risk [facility] 2024 3:44pm Hidradenitis suppurativa March 07, 2025 3:44pm Chief Complaint Admit Date March 04, 2025 4:26pm NOB LMP 7/3 LEIDY 4/9 *Per February 3:44pm [id number] ob *per March 22, 2025 2:43pm Reason for Visit Admit Date Advanced maternal age (AMA) in March 07, 2025 3:44pm Anxiety March 07, 2025 3:44pm Benign intracranial hypertension [facility] 2024 3:44pm Current in first t [facility] with history of placenta previa during March 07, 2025 3:44pm Hx of section March 07 3:44pm Hx of delivery, currently pregna nt March 07, 2025 3:44pm Obesity affecting February 3:44pm March 07, 2025 3:44pm Rh negative status during [facility] 2024 3:44pm Subchorionic hematoma March 07 3:44pm Supervision of high-risk [facility] 2024 3:44pm Hidradenitis suppurativa March 07, 2025 3:44pm Advanced maternal age (AMA) in March 22, 2025 2:43pm Anxiety March 22, 2025 2:43pm Benign intracranial hypertension [facility] 2024 2:43pm Current in first t [facility] with history of placenta previa during March 22, 2025 2:43pm Hx of section March 22, 2:43pm Hx of delivery, currently pregna nt March 22, 2025 2:43pm Obesity affecting March 222024 2:43pm March 22, 2025 2:43pm Rh negative status during [facility] 2024 2:43pm Subchorionic hematoma March 22 2:43pm Supervision of high-risk [facility] 2024 2:43pm Chief Complaint Admit Date March 04, 2025 4:26pm NOB LMP 7 LEIDY 10/05 *Per February 3:44pm [id number] ob *per SM March 22, 2025 2:43pm 14wk ob April 06, 2025 1: 02pm Reason for Visit Admit Date Advanced maternal age (AMA) in March 07, 2025 3:44pm Anxiety March 07, 2025 3:44pm Benign intracranial hypertension [facility] 2024 3:44pm Current in first t [facility] with history of placenta previa during March 07, 2025 3:44pm Hx of section March 07 3:44pm Hx of delivery, currently pregna nt March 07, 2025 3:44pm Obesity affecting February 3:44pm March 07, 2025 3:44pm Rh negative status during [facility] 2024 3:44pm Subchorionic hematoma March 07 3:44pm Supervision of high-risk [facility] 2024 3:44pm Hidradenitis suppurativa March 07, 2025 3:44pm Advanced maternal age (AMA) in March 22, 2025 2:43pm Anxiety March 22, 2025 2:43pm Benign intracranial hypertension [facility] 2024 2:43pm [facility] of [facility] previa during March 22, 2025 2:43pm Hx of section March 22 2:43pm Hx of delivery, currently pregna nt March 22, 2025 2:43pm Obesity affecting March 222024 2:43pm March 22, 2025 2:43pm Rh negative status during Sept em[facility] 2024 2:43pm Subchorionic hematoma March 22 2:43pm Supervision of high-risk [facility] 2024 2:43pm Advanced maternal age (AMA) in April 06, 2025 1:02pm Anxiety April 06, 2025 1: 02pm Benign intracranial hypertension April 06, 2025 1:02pm Current in first t rimester with history of placenta previa during April 06, 2025 1:02pm Hx of section April 06, 2025 1:02pm Hx of delivery, currently pregna nt April 06, 2025 1:02pm Hypertension affecting April 06, 2025 1:02pm Obesity affecting April 06, 2025 1:02pm April 06, 2025 1: 02pm Rh negative status during [facility] 2024 1:02pm Subchorionic hematoma April 06, 2025 1:02pm Supervision of high-risk [facility] 2024 1:02pm Additional Source Comments INFORMATION SOURCE (unrecogn ized section and content) DATE CREATED AUTHOR 12/22/2017 [facility] DATE CREATED AUTHOR AUTHOR'S ORGANIZ ATION 06/06/2021 [facility] DATE CREATED AUTHOR AUTHOR'S ORGANIZ ATION 08/05/2021 [facility] DATE CREATED AUTHOR AUTHOR'S ORGANIZ ATION 03/31/2022 [facility] DATE CREATED AUTHOR AUTHOR'S ORGANIZ ATION 05/02/2024 [facility] DATE CREATED AUTHOR AUTHOR'S ORGANIZ ATION 03/31/2025 [facility] DATE CREATED AUTHOR AUTHOR'S ORGANIZ ATION 04/15/2025 [facility] Reason for Visit (unrecogniz ed section and content) Reason Comments Shoulder Injury Right Status Reason Specialty Diagnoses / Procedures Referre d By Contact Referred To Contact Closed Radiology Diagnoses Instability of right shoulder joint Procedures XR SHOULDER ARTHROGRAM RIGHT S&I Pinky Romero MD 1 [facility] [address] [place] [address] Reason Comments Mouth Lesions Reason Onset Date [...] conduction studies) Procedures MR cervical spine wo Wilfredo Marion, DO [address] [place] [id number] Referral ID Status Reason Start Date Expiration Date V isits Requested Visits Authorized [id number] Authorized 11/18/2022 05/17/2023 1 1 Reason Comments Numbness In left arm all the time, and on and off in right arm since July, feet have been swelling Reason Comments Med Refill Reason Comments Back Pain Reason Comments 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 Specialty Diagnoses / Procedures Referred By Contac t Referred To Contact Orthopedic Surgery Diagnoses Acute low back pain with sciatica, sciatica laterality unspecified, unspecified back pain laterality Gissel Hernandez, PAPaulC [address] [place] [address] Phone: tel: fax: [facility] [address] [address] Phone: tel: fax: Referral ID Status Reason Start Date Expiration Date V isits Requested Visits Authorized [id number] Closed Specialty Services Required 04/16/2024 04/16/2025 1 1 Reason Comments New Patient Hip Pain Left Specialty Diagnoses / Procedures Referred By Contac t Referred To Contact Sports Medicine Diagnoses Left hip pain Procedures IN OFFICE/OUTPATIENT NEW HIGH MDM 60 MINUTES Jason Castro APRN - FRANNY 1 [facility] [address] [place] [address] Phone: tel: fax: [facility] [place] [place] [address] [place] [address] Phone: tel: fax: Referral ID Status Reason Start Date Expiration Date Visits Requested Visits Authorized [id number] Pending Review Specialty Services Required 04/22/2025 1 [...] Care Teams (unrecognized sec tion and content) Cream Gatherer Relationship Specialty Start Date End Date Wilfredo Fischer DO [address] [place] [address] PCP - General Family Medicine 03/21/22 Cream Gatherer Relationship Specialty Start Date End Date Wilfredo Fischer DO [address] [place], [place] [id number] PCP - General 03/21/22 Cream Gatherer Relationship Specialty Start Date End Date Wilfredo Fischer DO [address] [place], [place] [id number] PCP - General 03/21/22 Cream Gatherer Relationship Specialty Start Date End Date Wilfredo Fischer DO [address] [place], [place] [id number] PCP - General 03/21/22 Cream Gatherer Relationship Specialty Start Date End Date Wilfredo Fischer DO [address] [place] [address] PCP - General 03/21/22 Cream Gatherer Relationship Specialty Start Date End Date Wilfredo Fischer DO [address] [place] [address] PCP - General 03/21/22 Cream Gatherer Relationship Specialty Start Date End Date Wilfredo Fischer DO [address] [place] [address] PCP - General 03/21/22 Team Status: Active Member Role Status Dates Dr. Milton Dias MD Family Provider Active Dr. Wilfredo Fischer DO Primary Care Provider Active Team Status: Inactive Member Role Status Dates Dr. Wilfredo Fischer DO Primary Care Provider, Referr ing Provider Active Dr. Herberth Steele MD Attending Provider Active Team Status: Inactive Member Role Status Dates Dr. Wilfredo Fischer DO Primary Care Provider Active Dr. Herberth Steele MD Attending Provider, Referring Provider Active Cream Gatherer Relationship Specialty Start Date End Date Wilfredo Fischer DO Maximiliano [address] [place] [address] [address] [place] [address] PCP - General 03/21/22 Cream Gatherer Relationship Specialty Start Date End Date Wilfredo Fischer, DO [address] [place] [address] PCP - General 03/21/22 Cream Gatherer Relationship Specialty Start Date End Date Wilfredo Fischer, DO [address] [place] [address] PCP - General 03/21/22 Cream Gatherer Relationship Specialty Start Date End Date Wilfredo Fischer, DO [address] [place] [address] PCP - General 03/21/22 Cream Gatherer Relationship Specialty Start Date End Date Wilfredo Fischer, DO [address] [place] [address] PCP - General 03/21/22 Cream Gatherer Relationship Specialty Start Date End Date Wilfredo Fischer, DO [address] [place] [address] PCP - General 03/21/22 Team Status: Active [...] 04, 2025 End: March 04, 2025 Dr. Tremayen Brice DO Emergency Provider Activ e Start: March 04, 2025 End: March 04, 2025 Team Status: Inactive Member Role/Relationship Status Dates No Primary Care Physician Primary Care Provider Active Start: March 07, 2025 End: March 07, 2025 No Primary Care Physician Referring Provider Active Start: March 07, 2025 End: March 07, 2025 Dr. Comfort Agee MD Attending Provider Active Start: March 07, 2025 End: March 07, 2025 Team Status: Active Member Role/Relationship Status Dates No Primary Care Physician Primary care physician Activ e Team Status: Inactive Member Role/Relationship Status Dates No Primary Care Physician Primary care physician Activ e Start: March 04, 2025 End: March 04, 2025 Dr. Tremayne Brice DO Attending physician Active Start: February End: March 04, 2025 Dr. Tremayne Brice DO Emergency Department Physician Active Start: March 04, 2025 End: March 04, 2025 Team Status: Inactive Member Role/Relationship Status Dates No Primary Care Physician Primary care physician Activ e Start: March 07, 2025 End: March 07, 2025 No Primary Care Physician Referring Provider Active Start: March 07, 2025 End: March 07, 2025 Dr. Comfort Agee MD Attending physician Active Start: March 07, 2025 End: March 07, 2025 Team Status: Inactive Member Role/Relationship Status Dates No Primary Care Physician Primary care physician Activ e Start: March 07, 2025 End: March 07, 2025 Dr. Comfort Agee MD Attending physician Active Start: March 07, 2025 End: March 07, 2025 Dr. Comfort Agee MD Referring Provider Active Start: March 07, 2025 End: March 07, 2025 Team Status: Inactive Member Role/Relationship Status Dates No Primary Care Physician Primary care physician Activ e Start: March 22, 2025 End: March 22, 2025 No Primary Care Physician Referring Provider Active Start: March 22, 2025 End: March 22, 2025 Dr. Mignon Washington DO Attending physician Active Start: February End: March 22, 2025 Team Status: Active Member Role/Relationship Status Dates No Primary Care Physician Primary care physician Activ e Start: March 22, 2025 Dr. Comfort Agee MD Attending physician Active Start: March 22, 2025 Dr. Comfort Agee MD Referring Provider Active Start: March 22, 2025 Team Status: Inactive Member Role/Relationship Status Dates No Primary Care Physician Primary care physician Activ e Start: April 06, 2025 End: April 06, 2025 No Primary Care Physician Referring Provider Active Start: April 06, 2025 End: April 06, 2025 Tiarra Ibrahim NP, TECHNICAL INSTRUCTOR-C Attending physician Active Start: April 06, 2025 End: April 06, 2025 Goals (unrecognized section and content) Type Care Experience RLTCS Scheduled Active and Recently Administ ered Medications [...] BE BASED ON THE PRIMARY CLINICAL RECORDS. [facility]. provides no warranty or guarantee of the accuracy or completeness of information in this document.
--- NOTE | 2025-04-15 19:41 | EX.ED.DYSGE1 ---
HPI History of Present Illness Chief Complaint: Headache Narrative Narrative: 34-year-old female, G3, P2 at approximately 15 weeks gestation presents with fluctuating blood pressures that she had today. She relates history that she started labetalol recently, 200 mg twice a day for -induced hypertension. She denies any vaginal bleeding or pelvic cramping but states she was checked by her FLOOR TILING PROFESSIONAL last week, and had normal readings of her blood pressure. She did not have any protein in her urine. Today, she has had fluctuating blood pressures a few times in the 150 systolic and 140s. She had an isolated reading in the 120s. She had taken her 200 mg of labetalol this morning at 9 AM, approximately 10 to 11 hours ago. She states that she has history of chronic headaches and increased intracranial pressure ever since her last . She is concerned about her fluctuating blood pressure readings even with a diastolic of 90. No exacerbating or alleviating factors. [facility] Medical History Polyneuropathy Hidradenitis suppurativa Asthma Headache Obesity Vertigo Peripheral vestibulopathy Fatigue delivery delivered Home Medications ?Medication ?Instructions ?Recorded ?Last Taken ?Type albuterol sulfate 90 mcg/actuation 2 puff inhalation Q6H PRN 02/24/23 Unknown History aerosol inhaler mometasone-formoterol HFA 200 2 puff inhalation BID 02/24/23 Unknown History mcg-5 mcg/actuation aerosol inhaler (Dulera) choline 110 mg PO QDAY 03/07/25 Unknown History multivitamin no.47-iron fum 27 cap PO 03/07/25 Unknown History mg-folate no.1 1 mg-dha 300 mg capsule (PNV-DHA) labetalol 200 mg tablet 200 mg PO BID #60 tabs 04/06/25 Unknown Rx Allergy/AdvReac Type Severity Reaction Status Date / Time minocycline AdvReac Severe Hives Verified 04/15/25 18:50 Family History Maternal Grandfather Diabetes Heart disease Pancreatic cancer, Onset Age: 70 mets to eye Father Heart disease COPD (chronic obstructive pulmonary disease) Emphysema lung Hypertension Mother Heart disease cardiomegaly-mild COPD (chronic obstructive pulmonary disease) Thyroid disorder hypothyroid Hypertension Cancer, Onset Age: 45 skin cancer Grandmother Emphysema lung paternal Maternal Grandmother Multiple sclerosis Cancer, Onset Age: 65 lung cancer Uncle Cancer, Onset Age: 60 Maternal- Lung cancer COPD (chronic obstructive pulmonary disease) Maternal Grandfather Cancer Prostate cancer Surgical History History of third molar tooth extraction Hx of section Status post labral repair of shoulder Social History adopted: No household members: significant other, children and other details: custody of nephew 13yo housing: house number of children: 2 current occupational status: employed current occupation: [employer] current occupational exposures/hazards: No pets and animals: Yes (4 dogs, 2 Cats Avoid litterbox) pets and animals: cat(s) and dog(s) history of recent travel: No sexually active: Yes Smoking Status: Former smoker Tobacco: How many years used: 15 quit status: quit date established alcohol intake: current alcohol intake frequency: a few times a month details: not while substance use type: does not use well-balanced diet: about half the time caffeine: Yes Type: coffee Number of servings: 1 eating out: 1-3 times/week during the past year weight has: remained stable what type of physical activity do you participate in: none tamir/yazidi: None seatbelt use: always do you feel safe at home: Yes additional social history: [employer] work ROS ROS ED ROS Narrative Review of systems is positive for headache with history of intracranial pressure. Patient concerned about fluctuating blood pressure readings throughout the day today. No vaginal bleeding or pelvic cramping. No exacerbating or alleviating factors. EXAM Physical Exam Narrative Exam Narrative: Afebrile. Vital signs noted. Nontoxic-appearing. Cardiovascular examination is regular rate and rhythm. Lungs are clear to auscultation bilaterally. Abdomen is soft and nontender without guarding or rebound. Neurological examination nonfocal, nonlateralizing. No noted pedal edema. Const Vital Signs: 04/15/25 18:48 04/15/25 19:12 04/15/25 19:14 Temperature 97.8 F Temperature Source Oral Pulse Rate 95 88 Respiratory Rate 18 18 Respiratory Effort Normal Non-Labored Respiratory Pattern Normal Blood Pressure 129/85 H 151/81 H Blood Pressure Mean 99 104 Pulse Ox 98 98 Oxygen Delivery Method Room Air Room Air 04/15/25 19:42 04/15/25 20:58 Temperature Temperature Source Pulse Rate 90 88 Respiratory Rate 18 16 Respiratory Effort Respiratory Pattern Blood Pressure 100/82 H 159/85 H Blood Pressure Mean 88 109 Pulse Ox 100 100 Oxygen Delivery Method Room Air Room Air MDM MDM MDM Narrative Medical decision making narrative: Differential diagnosis includes but not limited to -induced hypertension exacerbation versus preeclampsia. I do feel that she is early in her for this however. Her initial blood pressure reading systolically was 129. It was 129/85 and 151/81. On the monitor while in the room, she had a blood pressure reading of 100 systolic which may have been machine/cuff error. She will remain on the traffic monitor specialist. I will obtain a CBC, CMP, and UA to make sure that she does not have help syndrome. I reviewed her laboratory work and she has normal white count of 8.1 with hemoglobin normal at 12.0, platelet count normal at 257. CMP is grossly unremarkable with normal sodium and potassium. BUN normal at 10 with creatinine 0.84. Urinalysis shows slight elevation in ketones. There is 15 protein. Her blood pressure will fluctuate between 130 systolic to 160 systolic according to the RN. I discussed patient with Dr. Comfort Sol, with FLOOR TILING PROFESSIONAL. She agrees that she is early in the for preeclampsia/eclampsia. She recommended sending off a urine protein to creatinine ratio. Was not felt that patient had to wait for this. They will consider changing her medication if she has continued elevation and readings of high systolic blood pressure. Upon repeat examination, patient states her headache has improved. I do not feel that she needs a CT of the brain for intracranial hemorrhage. Patient will be discharged to follow-up with FLOOR TILING PROFESSIONAL and keep a log of her blood pressures as she has been doing today. Return instructions to the emergency department were reviewed. Disposition is discharged home in stable condition. History & Record Review Discussion w/independent historian: Patient Lab Data Attestation: I reviewed the patient's lab results. Labs: Laboratory Results - last 24 hr 04/15/25 04/15/25 09:50 19:48 WBC 8.1 RBC 3.69 L Hgb 12.0 Hct 33.9 L MCV 91.9 MCH 32.5 H MCHC 35.4 RDW Std Deviation 40.7 RDW Coeff of Lesli 12.0 Plt Count 257 MPV 10.3 Immature Gran % (Auto) 0.200 Neut % (Auto) 57.4 Lymph % (Auto) 33.8 [place] % (Auto) 6.0 Eos % (Auto) 2.1 Baso % (Auto) 0.5 Absolute Neuts (auto) 4.7 Absolute Lymphs (auto) 2.74 Nucleated RBC % 0 Platelet Estimate MOD DEC RBC Morphology NORM C+C Sodium 137 Potassium 4.0 Chloride 104 Carbon Dioxide 21.4 Anion Gap 11 BUN 10 Creatinine 0.84 Estim Creat Clear Calc 139.09 Est GFR (MDRD) Non-Af 93 BUN/Creatinine Ratio 12.4 Glucose 99 Calcium 8.8 Total Bilirubin 0.20 AST 20 ALT 14 Alkaline Phosphatase 44 Total Protein 5.9 Albumin 3.5 Globulin 2.5 Albumin/Globulin Ratio 1.4 Urine Color Yellow Urine Clarity Clear Urine pH 5.0 Ur Specific [place] 1.025 Urine Protein 15 H Urine Glucose (UA) Normal Urine Ketones 5 H Urine Occult Blood Negative Urine Nitrite Negative Urine Bilirubin Negative Urine Urobilinogen Normal Ur Leukocyte Esterase Negative Urine RBC 0 SEEN Urine WBC 0-5 SEEN Ur Squamous Epith Cells 0-5 SEEN Urine Bacteria 3+ Urine Mucus 0 SEEN Management Discussion w/another healthcare provider: Air Valve Mechanic (Dr. Comfort Sol, FLOOR TILING PROFESSIONAL) Discharge Plan Triage Chief Complaint: Headache Other Complaint: Hypertension ED Provider: Erick Gibson Dx/Rx/DC Orders Clinical Impression: Hypertension affecting , Benign intracranial hypertension Instructions: ED Headache Unspecified, ED Hypertension, To Be Confirmed Prescriptions: No Action albuterol sulfate 90 mcg/actuation HFA aerosol inhaler 2 puff inhalation Q6H PRN Dulera 200-5 mcg/actuation HFA aerosol inhaler 2 puff inhalation BID PNV-DHA 27 mg iron-1 mg -300 mg capsule PO choline Capsule 110 mg PO QDAY labetalol 200 mg tablet 200 mg PO BID Qty: 60 2RF Primary Care Provider: Care Physician,No Primary Referrals: Comfort Sol MD [Med Staff - Active Staff, Obstetrics-Gynecology (OBGYN)] - 3-5 Days if not improving Care Physician,No Primary [Primary Care Provider, Medical] Activity Restrictions/Additional Instructions: Return to the emergency department with increased headache, new or worsening symptoms. Follow-up with your FLOOR TILING PROFESSIONAL and continue to keep a log of your blood pressures, checking it only a few times a day. Your OBG YN recommended continuing 200 mg of labetalol twice a day. Print Language: Japanese Disposition Disposition: Home, Self Care
[2025-04-15 19:42] VITALS: BP 100/82; PULSE 90; RESP 18; O2SAT 100
[2025-04-15 19:59] LABS: Color, Urine Yellow (Yellow); Glucose, Dipstick Normal (Normal); Ketone-Dipstick 5 mg/dl (Negative); Leukocyte Esterase-Dipstick Negative /ul (Negative); Mucous, Urine 0 SEEN /hpf (<or=2+); Nitrite-Dipstick Negative (Negative); Occult Blood-Urine Negative /ul (Negative); Protein-Dipstick 15 mg/dl (Negative); Red Blood Cells-Urine 0 SEEN /hpf (0-5); Specific Gravity, Urine 1.025 (1.002-1.030); Urine Bilirubin Dipstick Negative (Negative)
[2025-04-15 20:05] LABS: Hematocrit 33.9 % (37-47); Hemoglobin 12.0 g/dL (12.0-15.0); Immature Granulocytes Count 0.020 X10^3/uL (0.0-0.0); Mean Corp Hgb Conc 35.4 g/dL (32-36); Mean Corpuscular Volume 91.9 fL (81-99); Mean Platelet Vol. 10.3 fl (6.2-12.0); NRBC Flagged by Analyzer 0 % (0-5); Platelet Count 257 K/mm3 (150-450); RBC Distribution Width CV 12.0 % (11.6-14.6); RBC Distribution Width SD 40.7 fl (35.1-43.9); Red Blood Count 3.69 M/mm3 (4.2-5.4); White Blood Count 8.1 K/mm3 (4.4-11.0)
[2025-04-15 20:05] LABS: Squamous Epithelial Cells - UA 0-5 SEEN /hpf (5-10)
[2025-04-15 20:08] LABS: Red Cell Morphology NORM C+C NORMAL (NORM C&C)
[2025-04-15 20:28] LABS: AST(SGOT) 20 U/L (<=31); Alanine Aminotransfer ALT/SGPT 14 U/L (<=34); Albumin, Serum 3.5 g/dL (3.5-5.0); Alkaline Phosphatase 44 U/L (35-104); Anion Gap 11 (5-15); BUN 10 mg/dL (4-19); BUN/Creat Ratio 12.4 RATIO (10-20); Calcium,Total 8.8 mg/dL (7.6-11.0); Carbon Dioxide 21.4 mmol/L (21.0-32.0); Chloride 104 mmol/L (98-108); Estimated Creatinine Clearance 139.09 ml/min (50-250); Globulin 2.5 g/dL (2.2-4.2); Glucose 99 mg/dL (70-99); Potassium 4.0 mmol/L (3.3-5.1)
--- NOTE | 2025-04-15 20:32 | CM.ED ---
Social Work Date of referral: 04/15/2025 Reason for referral: Primary Care Physician (PCP) not on file. Referred by: Social Work Identification Patient provided consent to social work visit. Patient confirmed she is not currently connected with a PCP and stated she just got insurance. Health Insurance Specialist provided patient with a written handout for the [facility] which patient accepted and expressed appreciation for. Mignon Burton, MOTOR COACH SUPERVISOR, SENIOR PAYROLL SPECIALIST
[2025-04-15 20:58] VITALS: BP 159/85; PULSE 88; RESP 16; O2SAT 100
[2025-04-15 21:19] VITALS: BP 159/85; PULSE 88; RESP 16; TEMP 36.6; O2SAT 100
[2025-04-15 21:59] LABS: Creatinine, Urine (random) 283.00 mg/dL (28.00-217.00); Protein, Urine (Random) 16.9 mg/dL (0.0-12.0); Protein:Creat Ratio 60 mg/g CRE (0-200)
== END 2025-04-15 21:20 | disposition home or self-care (01) ==
PROVIDERS: Emergency Provider Emergency Medicine; Visit Provider Emergency Medicine
DX: O13.2 Gestational [pregnancy-induced] hypertension without significant proteinuria, second trimester (principal); O99.352 Diseases of the nervous system complicating pregnancy, second trimester; G93.2 Benign intracranial hypertension; O99.512 Diseases of the respiratory system complicating pregnancy, second trimester; J45.909 Unspecified asthma, uncomplicated; Z3A.15 15 weeks gestation of pregnancy; Z79.51 Long term (current) use of inhaled steroids; Z79.899 Other long term (current) drug therapy; Z87.891 Personal history of nicotine dependence
CPT/HCPCS: 80053; 81001; 82570; 84156; 85025; 99283; A4216

== ENCOUNTER → 2025-04-26 | Outpatient (CLI) | payer MEDICAID, SELFPAY ==
[2025-04-26 12:18] LABS: Hematocrit 34.7 % (37-47); Hemoglobin 12.2 g/dL (12.0-15.0); Immature Granulocytes Count 0.020 X10^3/uL (0.0-0.0); Mean Corp Hgb Conc 35.2 g/dL (32-36); Mean Corpuscular Volume 91.8 fL (81-99); Mean Platelet Vol. 10.7 fl (6.2-12.0); NRBC Flagged by Analyzer 0 % (0-5); Platelet Count 266 K/mm3 (150-450); RBC Distribution Width CV 12.2 % (11.6-14.6); RBC Distribution Width SD 41.0 fl (35.1-43.9); Red Blood Count 3.78 M/mm3 (4.2-5.4); White Blood Count 7.4 K/mm3 (4.4-11.0)
[2025-04-26 12:42] LABS: Creatinine, Urine (random) 181.00 mg/dL (28.00-217.00); Protein, Urine (Random) 11.7 mg/dL (0.0-12.0); Protein:Creat Ratio 65 mg/g CRE (0-200)
[2025-04-26 12:43] LABS: AST(SGOT) 21 U/L (<=31); Alanine Aminotransfer ALT/SGPT 16 U/L (<=34); Albumin, Serum 3.7 g/dL (3.5-5.0); Alkaline Phosphatase 45 U/L (35-104); Anion Gap 9 (5-15); BUN 12 mg/dL (4-19); BUN/Creat Ratio 15.8 RATIO (10-20); Calcium,Total 8.8 mg/dL (7.6-11.0); Carbon Dioxide 23.0 mmol/L (21.0-32.0); Chloride 103 mmol/L (98-108); Globulin 2.6 g/dL (2.2-4.2); Glucose 102 mg/dL (70-99); Potassium 4.1 mmol/L (3.3-5.1)
== END | disposition home or self-care (01) ==
PROVIDERS: Visit Provider Nurse Practitioner Women's Health
DX: O16.2 Unspecified maternal hypertension, second trimester (principal); Z3A.00 Weeks of gestation of pregnancy not specified
CPT/HCPCS: 36415; 80053; 82570; 84156; 85025

== ENCOUNTER 2025-05-15 19:55 | Emergency (ER) | payer MEDICAID, SELFPAY ==
[2025-05-15 19:56] VITALS: BP 147/95; PULSE 102; RESP 24; TEMP 36.3; O2SAT 97; BMI 44.4
[2025-05-15 20:27] VITALS: BP 148/83; PULSE 81; RESP 16; O2SAT 100
[2025-05-15 21:14] VITALS: BP 145/79; PULSE 92; RESP 18; O2SAT 100
--- OUTSIDE RECORDS SUMMARY | 2025-05-15 21:22 | XMS RPT_ITS | CCD ---
Author Organization [facility] Care Team Providers Care Plate Setter Name Role Phone KIARATRICE CHRISTIE Unavailable Unavailable MILTON DIAS Unavailable Unavailable Unavailable Primary Care Provider Unavailabl e Unavailable Primary Care Provider UnavailWilfredo Ratliff DO Primary Care Provider [phone] Wilfredo Fischer Primary Care Unavailable Wilfredo Fischer [...] Referring Provider Dr. Herberth Steele Attending Provider [phone] Wilfredo Fischer DO Primary Care Provider Dr. Wilfredo Fischer Primary Care Provider [phone] Dr. Herberth Steele Attending Provider [phone] Dr. Herberth Steele Referring Provider Dr. Wilfredo Fischer Referring Provider [phone] Unavailable Primary Care Provider UnavailSHAY Cronin Attending Unavailable JASON CASTRO Referring Unavailable JASON CASTRO Referring Unavailable JASON CASTRO Attending Unavailable GISSEL HERNANDEZ Referring Unavailable SHAY IZQUIERDO Attending Unavailable SHAY IZQUIERDO Referring Unavailable AMADO WILFREDO Primary Care Unavailable Kenneth VIDALES, Dr. Moe Emergency Provider Care Physician, No Primary Primary Care Provider Unavailable Kenneth VIDALES, Dr. Moe Attending Provider Care Physician, No Primary Primary Care Provider Unavailable Yuniel VIDALES, Dr. Casper Emergency Provider Care Physician, No Primary Referring Provider Un available Dr. Comfort Agee MD Attending Provider Care Physician, No Primary Primary Care Physicia n Unavailable Yuniel VIDALES, Dr. Casper Attending Physician Yuniel VIDALES, Dr. Casper Emergency Departmen t Physician Dr. Comfort Agee MD Attending Physician Dr. Comfort Agee MD Referring Provider Dr. Mignon Washington DO Attending Physician Alexandria BANKS-Tiarra Thompson Attending Physician [phone] Chaya Alejandro CNM Attending Physician Erick Gibson MD Attending Physician Erick Gibson MD Emergency Department Physician Care Physician, No Primary Primary Care Physicia n Unavailable Yuniel VIDALES, Dr. Casper Attending Physician Yuniel VIDALES, Dr. Casper Emergency Departmen t Physician Care Physician, No Primary Referring Provider Un available Dr. Comfort Agee MD Attending Physician Dr. Comfort Agee MD Referring Provider Dr. Mignon Washington DO Attending Physician Alexandria BANKS-CTiarra Attending Physician [phone] Chaya Alejandro CNM Attending Physician Erick Gibson MD Attending Physician Erick Gibson MD Emergency Department Physician CAITLYN GRANADO Attending Unavailable COMFORT AGEE Referring Unavailabl e NO PRIMARY CARE, Primary Care Unavailable COMFORT AGEE Referring Unavailabl e MIGNON GREENE Attending Unavailable NO PRIMARY CARE, Primary Care Unavailable COMFORT AGEE Referring Unavailabl e NO PRIMARY CARE, Primary Care Unavailable PETERSON BEST Attending Unavailable Alexandria HEAD MEN'S TENNIS COACH, Tiarra Attending Unavailable Care Physician, No Primary Primary Care Unava ilable Comfort Agee Attending Unavailable Comfort Agee Referring Unavailable Care Physician, No Primary Primary Care Unava ilable Erick Gibson Attending Unavailable Care Physician, No Primary Primary Care Unava ilable Alexandria HEAD MEN'S TENNIS COACH, Tiarra Attending Unavailable Care Physician, No Primary Referring Unava ilable Care Physician, No Primary Primary Care Unava ilable Mignon Washington Attending Unavailabl e Care Physician, No Primary Referring Unava ilable Care Physician, No Primary Primary Care Unava ilable Care Physician, No Primary Primary Care Unava ilable Comfort Agee Attending Unavailable Care Physician, No Primary Referring Unava ilable Mingon Washington Attending Unavailabl e Care Physician, No Primary Referring Unava ilable Care Physician, No Primary Primary Care Unava ilable Alexandria HEAD MEN'S TENNIS COACH, Tiarra Attending Unavailable Care Physician, No Primary Referring Unava ilable Care Physician, No Primary Primary Care Unava ilable Chaya Alejandro Attending Unavailable Care Physician, No Primary Referring Unava ilable Care Physician, No Primary Primary Care Unava ilable Care Physician, No Primary Primary Care Unava ilable Tremayne Brice Attending Unavailabl e Abhi Cooper Attending Unavailable Care Physician, No Primary Primary Care Unava ilable Care Physician, No Primary Primary Care Unava ilable Abhi Cooper Attending Unavailable Care Physician, No Primary Primary Care Unava ilable Abhi Cooper Attending Unavailable Care Physician, No Primary Primary Care Unava ilable Abhi Cooper Attending Unavailable Comfort Agee Referring Unavailable Comfort Agee Attending Unavailable Care Physician, No Primary Primary Care Unava ilable Allergies Allergy Classification Reported Allergen(s) Allergy Type Date of Onset Reaction(s) Facility (20 sources) Minocycline; Translations: [MINOCYCLINE] Drug Allergy 05-31-2021 [facility] (20 sources) nickel sulfate; Translations: [NICKEL] Drug Allergy 05-31-2021 [facility] Work Phone: (13 sources) Minocycline Drug Allergy 02-24-2023 [facility] Comment on above: ania (1 source) Minocycline Drug Allergy 05-04-2025 [facility] Repository Medications Current Medications Medication Drug Class(es) Dates Sig (Normalized) Sig (Original) adapalene 0.003 mg/mg topical gel (9 sources) Retinoid Start: 01-26-2023 adapalene (Differin) 0.3 % gel 01/26/2023 Active [id number] 200 actuat albuterol 0.09 mg/actuat metered dose [...] INHALATION EVERY 6 HOURS as needed February 23, 2023 11:00pm Complies with drug therapy Start: 02-24-2023 take [...] capsule by mouth daily 0 Active Choline (6 sources) Start: 03-07-2025 take 1 capsule by mouth once daily Choline capsule Active 110 mg PO daily March 06, 2025 11:00pm Complies with drug therapy Start: 03-07-2025 take 1 capsule by mo uth once daily Choline capsule Active 110 mg PO daily March 07, 2025 12:00am Complies with drug therapy Start: 03-07-2025 take 1 capsule by mo uth once daily Start: 03-07-2025 take 1 capsule by mo uth once daily Choline capsule Active 110 mg [...] 2 NMA INHALATION TWICE A DAY February 23, 2023 11:00pm Complies with drug therapy Start: 03-24-2022 take [...] Active labetalol hydrochloride 200 mg oral tablet (5 sources) beta-Adrenergic Sage Start: 04-26-2025 End: 05-04-2025 take 1 tablet by mouth three times daily Labetalol 200 mg tablet Discontinued 200 mg PO THREE TIMES A DAY 90 3 April 27, 2025 3:24pm May 04, 2025 2:55pm Hypertension affecting Unspecified maternal hypertension, second trimester Start: 04-06-2025 End: 04-26-2025 take 1 tablet by mouth twice daily Labetalol 200 mg tablet Discontinued 200 mg PO TWICE A DAY 60 2 April 05, 2025 11:00pm April 26, 2025 3:12pm Magic Mouthwash (MIRACLE MOUTHWASH) (1 source) Start: [...] A DAY February 24, 2023 12:00am Multivit 34-Siwe-Jivvuk 1-Dh a (Pnv-Dha) 27 mg iron-1 mg -300 mg capsule (6 sources) Start: 03-07-2025 Multivit 47-Ir on-Folate 1-Dha (Pnv-Dha) 27 mg iron-1 mg -300 mg capsule Active NMA PO March 06, 2025 11:00pm Complies with drug therapy Start: 03-07-2025 Multivit 47-Ir on-Folate 1-Dha (Pnv-Dha) [...] (with meals) 14 tablet 0 08/09/2020 Active NIFEdipine 60 mg osmotic 24 hr extended release oral tablet (1 source) Dihydropyridine Calcium Channel Sage Start: 05-04-2025 take 1 tablet by mouth once daily Nifedipine (Procardia Xl) 60 mg tablet extended release 24hr Active 60 mg PO DAILY May 04, 2025 12:00am Complies with drug therapy Start: 05-04-2025 take 1 tablet by tushar th once daily Nifedipine (Procardia Xl) 60 mg tablet extended release 24hr Active 60 mg PO DAILY 30 26 12May 04, 2025 12:00am Complies with drug therapy omeprazole 20 mg delayed release oral capsule [...] A DAY 60 1 April 19, 2024 3:24pm March 07, 2025 9:03am ALPRAZolam 1 mg oral tablet (13 sources) Benzodiazepine Start: 02-25-2023 End: 03-07-2025 Alprazolam 1 mg tablet Discontinued 1 mg .ROUTE .COMPLEX 1 0 February 24, 2023 11:00pm March 07, 2025 9:04am Claustrophobia Claustrophobia Take 1 tablet x1 orally 30 minutes prior to MRI. amoxicillin 875 mg / clavulanate 125 mg oral tablet (11 sources) Penicillin-class Antibacterial Start: 09-21-2024 End: 03-07-2025 Amoxicillin-Pot Clavulanate 875-125 mg tablet Discontinued 1 {tbl} PO Q12H 14 7 0 September 20, 2024 11:00pm March 07, 2025 9:04am cephalexin 250 mg oral capsule (12 sources) Cephalosporin Antibacterial Start: 04-08-2023 End: 03-07-2025 take 1 capsule by mouth every six hours Cephalexin 250 mg capsule Discontinued 250 mg PO EVERY 6 HOURS 28 0 April 07, 2023 11:00pm March 07, 2025 9:04am Collagen (1 source) End: 08-09-2020 COLLAGEN PO [...] completed) docusate sodium 100 mg oral capsule (19 sources) Start: 06-03-2021 End: 07-10-2021 docusate sodium [...] as needed for Constipation May 12, 2015 12:00am June 16, 2015 6:11am flurbiprofen 100 mg oral tablet (13 sources) Nonsteroidal Anti-inflammatory Drug Start: 02-24-2023 End: 03-07-2025 take 1 tablet by mouth three times daily as needed for pain Flurbiprofen 100 mg tablet Discontinued 100 mg PO THREE TIMES A DAY as needed for pain 90 4 February 23, 2023 11:00pm March 07, 2025 9:04am gadobutrol (GADAVIST) injection 2 mL (1 source) [...] at 1805, For 1 dose lactobacillus acidophilus [id number] unt oral capsule (13 sources) Start: 02-24-2023 End: 03-07-2025 take 1 capsule by mouth once daily Lactobacillus Acidophilus (Probiotic Gold Acidophilus) 1 billion cell capsule Discontinued 1000 NMA PO DAILY February 23, 2023 11:00pm March 07, 2025 9:04am LORazepam 0.5 mg oral tablet (2 sources) Benzodiazepine Start: 01-15-2023 End: 02-06-2023 LORazepam (Ativan) 0.5 MG tablet Indications: Anxiety One tab tonight and one tab 2 hours before MRI 2 tablet 0 01/15/2023 02/06/2023 Discontinued (Therapy completed) mecobalamin (1 source) Start: 03-18-2023 End: 03-18-2023 Mecobalamin (Vitamin B12) Discontinued 1000 MCG IM .30 DAYS 1 March 17, 2023 11:00pm March 18, 2023 11:23am Mecobalamin (Vitamin B12) 10,000 mcg recon soln (11 sources) Start: 03-18-2023 End: 03-18-2023 Mecobalamin (Vitamin B12) 10,000 mcg recon soln Discontinued 1000 ug IM .30 DAYS 1 0 March 17, 2023 11:00pm March 18, 2023 11:23am FATIGUE Start: 03-18-2023 End: 03-18-2023 Mecobalamin (Vitamin B12) 10 ,000 mcg recon soln Discontinued 1000 ug IM .30 DAYS 1 March 18, 2023 12:00am March 18, 2023 12:23pm FATIGUE Start: 03-18-2023 End: 03-18-2023 Mecobalamin (Vitamin B12) 10 ,000 mcg recon soln Discontinued 1000 ug IM .30 DAYS March 18, 2023 12:00am March 18, 2023 12:23pm minocycline 100 mg oral capsule (13 sources) Tetracycline-class Drug Start: 04-11-2021 End: 02-24-2023 take 1 capsule by mouth once daily Minocycline 100 mg capsule Discontinued 100 mg PO DAILY April 10, 2021 11:00pm February 24, 2023 8:23am ondansetron 4 mg disintegrating oral tablet (5 [...] 1 dose predniSONE 20 mg oral tablet (13 sources) Start: 04-12-2021 End: 02-24-2023 take 1 tablet by mouth twice daily Prednisone 20 mg tablet Discontinued 20 mg PO TWICE A DAY 6 0 April 11, 2021 11:00pm February 24, 2023 8:24am Vit,Camacho 50-Ygrc-Pjoou (Prenatabs Fa) 1 TABLET tablet (7 sources) Start: 05-12-2015 End: 06-16-2015 take 1 tablet by mouth once daily Vit,Camacho 33-Nczi-Fhxme (Prenatabs Fa) 1 TABLET tablet Discontinued 1 {tbl} PO DAILY May 12, 2015 12:00am June 16, 2015 6:11am Start: 05-12-2015 End: 06-16-2015 take 1 tablet by mouth once daily Vit,Camacho 01-Ojyj-Fuxmn (Prenatabs Fa) 1 TABLET tablet Discontinued 1 {tbl} PO DAILY May 12, 2015 1:00am June 16, 2015 7:11am Vit,Tebn82-Bbux-Ulmfx (Prenatabs Fa) 1 TABLET tablet (6 sources) Start: 05-12-2015 End: 06-16-2015 take 1 tablet by mouth once daily Vit,Fict50-Mstk-Uttig (Prenatabs Fa) 1 TABLET tablet Discontinued 1 {tbl} PO DAILY May 12, 2015 1:00am June 16, 2015 7:11am Start: 05-12-2015 End: 06-16-2015 take 1 tablet by mouth once daily Vit,Ylyx07-Kdlk-Gbtff (Prenatab s Fa) 1 TABLET tablet Discontinued 1 TABLET PO DAILY May 12, 2015 12:00am June 16, 2015 6:11am Start: 05-12-2015 End: 06-16-2015 take 1 tablet by mouth once daily Vit,Ygvg08-Ygom-Wctnz (Prenatab s Fa) 1 TABLET tablet Discontinued 1 TABLET PO DAILY May 12, 2015 1:00am June 16, 2015 7:11am spironolactone 100 mg oral tablet (20 sources) Aldosterone Antagonist Start: 04-11-2021 End: 04-02-2023 take 1 tablet by mouth once daily Spironolactone 100 mg tablet Discontinued 100 mg PO DAILY April 10, 2021 11:00pm April 02, 2023 3:11pm take 4 tablets by mo [facility] once daily, then take 2 tablets [...] sources) Anxiety; Translations: [Anxiety disorder, unspecified] Onset: 05-04-2025 01-15-2023 Chronic Asthma (20 sources) Mild intermittent asthma; Translations: [Mild intermittent asthma, uncomplicated] Onset: 06-29-2007 03-21-2022 Chronic Blindness and vision defects (13 sources) Blurring of visual image; Translations: [Other visual disturbances] 02-25-2023 Episodic Conditions associated with dizziness or vertigo (20 sources) Vertiginous syndrome; Translations: [Unspecified disorder of vestibular function, unspecified ear] 08-12-2023 Episodic Diseases of mouth; excluding dental (1 source) Painful mouth; Translations: [Other lesions of oral mucosa] Episodic E Codes: Natural/environment (11 sources) Cat bite - wound; Translations: [Bitten by cat, initial encounter] 09-21-2024 Episodic Essential hypertension (10 sources) Essential hypertension; Translations: [Essential (primary) hypertension] Onset: 06-29-2021 02-06-2023 Chronic Headache; including migraine (15 sources) Headache; Translations: [Headache] 02-25-2023 Episodic Headache; including migraine (1 source) Headache; including migraine; Translations: [Headache, unspecified] Onset: 04-20-2025 Hemorrhage during ; abruptio placenta; placenta previa (20 sources) Placenta previa; Translations: [Complete placenta previa NOS or without hemorrhage, second trimester] Onset: 12-14-2017 Resolved: 01-01-2018 01-01-2018 Episodic Hypertension complicating ; childbirth and the puerperium (11 sources) Hypertension complicating ; Translations: [Unspecified maternal hypertension, unspecified trimester] Onset: 05-04-2025 04-06-2025 Chronic Comment on above: Labetalol. BP Ch 1 w k procardia BP Ch 1 wk Joint disorders and dislocations; trauma-related (1 source) Acetabular labrum tear 04-29-2024 Chronic Malaise and fatigue (15 sources) Fatigue; Translations: [Other fatigue] 03-18-2023 Episodic Other circulatory disease (20 sources) Labile systemic arterial hypertension; Translations: [Other specified symptoms and signs involving the circulatory and respiratory systems] Onset: 03-21-2022 Resolved: 02-06-2023 03-21-2022 Episodic Other circulatory disease (1 source) Other specified symptoms and signs involving the [...] Translations: [Obesity complicating , second trimester] Onset: 05-04-2025 Chronic Other complications of (1 source) Obesity complicating , unspecified trimester; Translations: [Obesity complicating , unspecified trimester] Onset: 03-22-2025 Chronic Other complications of (20 sources) High risk ; Translations: [Supervision of other high risk pregnancies, unspecified trimester] Onset: 11-09-2017 Resolved: 01-01-2018 01-01-2018 Episodic Comment on above: , LEIDY 10/05/25, Nadine Sanchez( custody of 13yo nephew) BF Titi PRR , LEIDY 10/05/25 , Nadine Sanchez( custody of 13yo nephew) BF Titi Other complications of (20 sources) RhD negative; Translations: [Other specified related conditions, unspecified trimester] Onset: 12-30-2017 Resolved: 01-01-2018 01-01-2018 Episodic Comment on above: rhogam @ 28 wks rhogam @ 28 wks, Giv en 03/22/25 for bleeding Other complications of (20 sources) First trimester ; Translations: [Supervision of with other poor reproductive or obstetric history, first trimester] 03-07-2025 Episodic Other complications of (20 sources) Advanced maternal age ; Translations: [Elderly multigravida, unspecified as to episode of care or not applicable] 03-07-2025 Episodic Comment on above: nipt planned nipt LR Other complications of (20 sources) H/O: premature delivery; Translations: [Supervision of other high risk pregnancies, unspecified trimester] 03-07-2025 Episodic Comment on above: delivered 27w4d last , SROM 19 wks, month in [facility] before cord prolapse/emergency CS Other complications of (1 source) Supervision of high risk , unspecified, second trimester; Translations: [Supervision of high risk , unspecified, second trimester] Onset: 05-04-2025 Episodic Other complications of (1 source) Other specified related conditions, second trimester; Translations: [Other specified related conditions, second trimester] Onset: 05-04-2025 Episodic Other complications of (1 source) Supervision of other high risk pregnancies, unspecified trimester; Translations: [Supervision of other high risk pregnancies, unspecified trimester] Onset: 05-04-2025 Episodic Other complications of (1 source) Supervision of with other poor reproductive or obstetric history, first trimester; Translations: [Supervision of with other poor reproductive or obstetric history, first trimester] Onset: 05-04-2025 Episodic Other complications of (1 source) Supervision of high risk , unspecified, unspecified trimester; Translations: [Supervision of high risk , unspecified, unspecified trimester] Onset: 04-21-2025 Episodic Other complications of (1 source) Other specified related conditions, unspecified trimester; Translations: [Other specified related conditions, unspecified trimester] Onset: 03-22-2025 Episodic Other connective tissue disease (13 sources) Fibromyalgia; Translations: [Fibromyalgia] 02-25-2023 Episodic Other [...] a year since she saw a neurologist acetazolamide in the past. mfm consult. been over a year since she saw a neurologist. - unsure if she can take baby asa. waiting on neurologist recommendations Other nervous system disorders (10 sources) Neuropathy; Translations: [Hereditary and idiopathic neuropathy, unspecified] Onset: 02-06-2023 02-06-2023 Chronic Other nervous system disorders (13 sources) Polyneuropathy; Translations: [Polyneuropathy, unspecified] 02-25-2023 Chronic Other nervous system disorders (3 sources) Benign intracranial hypertension; Translations: [Benign intracranial hypertension] Onset: 05-04-2025 02-24-2023 Chronic Other nervous system disorders (2 [...] Chronic Other nutritional; endocrine; and metabolic disorders (12 sources) Obesity; Translations: [Obesity, unspecified] 04-06-2023 Chronic Other nutritional; endocrine; and metabolic disorders (1 source) Severe obesity; Translations: [Morbid (severe) obesity due to excess calories] Chronic Other and delivery including normal (20 sources) ; Translations: [Encounter for supervision of normal , unspecified, unspecified trimester] 03-07-2025 Episodic Comment on above: elects NIPT with gen rico-carrier undecided NIPT low risk. Horiz on neg. Other screening for suspected conditions (not mental disorders or infectious disease) (3 sources) Abnormal nerve conduction; Translations: [Abnormal response to nerve stimulation, unspecified] Onset: 03-07-2025 01-01-2023 Episodic Other skin disorders (12 sources) Hidradenitis suppurativa; Translations: [Hidradenitis suppurativa] 03-07-2025 [...] weeks. rhogam given 03/22/25 Residual codes; unclassified (13 sources) Hypersomnia; Translations: [Hypersomnia, unspecified] 02-25-2023 Chronic Residual codes; unclassified (3 sources) Hypersomnia, unspecified; Translations: [Hypersomnia, unspecified] 02-24-2023 Chronic Residual codes; unclassified (12 sources) Daytime hypersomnia; Translations: [Hypersomnia, unspecified] 04-06-2023 Chronic Residual codes; unclassified (1 source) 18 weeks gestation of ; Translations: [18 weeks gestation of ] Onset: 05-04-2025 Episodic Residual codes; unclassified (1 source) Unspecified blood type, Rh negative; Translations: [Unspecified blood type, Rh negative] Onset: 05-04-2025 Episodic Residual codes; unclassified (1 source) History of uterine scar from previous surgery; Translations: [History of uterine scar from previous surgery] Onset: 05-04-2025 Episodic Residual codes; unclassified (1 source) 14 weeks gestation of ; Translations: [14 weeks gestation of ] Onset: 04-13-2025 Episodic Residual codes; unclassified (1 source) 11 weeks gestation of ; Translations: [11 weeks gestation of ] Onset: 03-22-2025 Episodic Residual codes; unclassified (1 source) 9 weeks gestation of ; Translations: [9 weeks gestation of ] Onset: 03-07-2025 Episodic Skin and subcutaneous tissue infections (13 sources) Cellulitis and abscess of lower limb; [...] Test Name Value Interpretation Reference Range Facility Laboratory - Chemistry and C hemistry - challengeOrdered By: Mignon Robins on 05-04-2025 Glucose Ql (U) Negative [facility] Laboratory - UrinalysisOrder ed By: Mignon Robins on 05-04-2025 Protein Ql (U) Negative [facility] Hand Miter Operator Office Visit Reporton 05-04-2025 Hand Miter Operator Office Visit Report [facility] [address], [address] [place] [address] OFFICE VISIT Date of Service: 05/04/25 MR#: [id number] Acct: [id number] Name: CHERYL WOOD Omid Rep #: [id number] : 1990 Provider: Dr. Mignon Holman DO Age/Sex: 34/F [place] [facility] [place]: S[place] Intake Vital Signs 03/22/25 14:43 04/26/25 08:48 05/04/25 14:24 Height 5 ft 9 in 5 ft 9 in 5 ft 9 in Weight: 299 lb 6 oz BMI 44.1 BP 134/87 H Intake Visit Reasons: 18wk ob Chief Complaint: 18wk OB Jackspooler Required: No Is patient in pain?: No Allergies minocycline Adverse Reaction (Severe, Verified 05/04/25 14:21) Hives Medications ???Medication ???Instructions ???Recorded ???Confirmed ???Type albuterol sulfate 90 mcg/actuation 2 puff inhalation Q6H PRN 05/04/25 History aerosol inhaler mometasone-formotero l HFA 200 2 puff inhalation BID 02/24/2312/21 History mcg-5 mcg/actuation aerosol inhaler (Dulera) choline 110 mg PO QDAY 03/07/25 05/04/25 H istory multivitamin no.47-iron fum 27 cap PO 03/07/25 05/04/25 History mg-folate no.1 1 mg-dha 300 mg capsule (PNV-DHA) nifedipine 60 mg tablet,extended 60 mg PO DAILY 30 days #30 tabs 05/04/25 Rx release 24 hr (Procardia XL) Last Menstrual Period: 12/29/24 : No Have you fallen in the past year?: No PFSH PFSH Medical History Polyneuropathy Hidradenitis [...] 2 current occupational status: employed current occupation: [employer] current occupational exposures/hazards: No pets and animals: [...] physical activity do you participate in: none tamir/temple: None seatbelt use: always do you feel safe at home: Yes additional social history: [employer] work History 3 Elective abortions Hx Para 2 Spontaneous abortions Hx # Term Pregnancies Ectopic pregnancies Hx # Pregnancies Multiple births # of living children 2 Past Pregnancies Del. Date Name GA/Weeks Outcome Route Bth Weight Infant Gen Labor Lgth Anesthesia Del Locatn Provider FOB 06/15/15 Ellie 40 live - full term 8#9oz Female epidural [facility] 12/30/17 Nadine 27 live - 2#1oz Female general [facility] Delivery Date: 06/15/15 Last Updated by: Haley Vazquez IOL, stuck, CS Delivery Date: 12/30/17 Last Updated by: Haley Vazquez previa, cord prolapse, emergency c section HPI 18wk ob Details: CHERYL WOOD is a 34 year old who presents for routine OB visit. OB Visit LEIDY Calculator Estimated Delivery Date Method Current WG Current Estimate 10/05/25 LMP (Certain) 18w 0d Expected Delivery Route/Plan RLTCS Specific Issue/Plans Covid status: [] Flu vaccine: [] Tdap vaccine: [] Rhogam: [] LARC form signed: [] Problem list reviewed and updated with the most current plan of care details and appropriate orders placed. Relevant counseling for t (more content not included)... Normal [facility] Absolute lymphocyte countOrd ered By: Tiarra Ibrahim on 04-26-2025 Lymphocytes Auto (Unsp spec) [#/Vol] 2.34 10*3/uL 0.83-4.51 [facility] Absolute neutrophil countOrd ered By: Tiarra Ibrahim on 04-26-2025 Neutrophils (Bld) [#/Vol] 4.3 10*3/uL 2.0-7.7 [facility] Anion gap in Serum or Plasma Ordered By: Tiarra Ibrahim on 04-26-2025 Anion gap [Moles/Vol] 9 mmol/L - [facility] [facility] Automated lymphocyte count a s percentage of total leukocytesOrdered By: Tiarragarcia Ibrahim on 04-26-2025 Lymphocytes/100 WBC Auto (Unsp spec) 31.5 % [facility] BUN/creatinine ratioOrdered By: Tiarragarcia Ibrahim on 04-26-2025 Urea nitrogen/Creatinine [Mass ratio] 15.8 mg/mg - [facility] Basophil percentageOrdered B y: Tiarra Ibrahim on 04-26-2025 Basophils/100 WBC (Bld) 0.7 % 0-1 [facility] Bilirubin, totalOrdered By: Tiarragarcia Ibrahim on 04-26-2025 Bilirubin [Mass/Vol] 0.33 mg/dL 0.00-1.30 [facility] CBC W/Diff, Automatedon 03-30 Absolute Lymph 2.34 X10 3/uL Normal 0.83-4.51 [facility] Comment on above: Performed By: #### L 900.0098, BTS, L3890.6301, L509.8002, L509.4006, L501.9985, L3890.6102, L500.4050, L3890.6006, L100.0100 #### [facility] [address] [place], [place] [address]dustin. [place], [place], [id number] Absolute Neut 4.3 X10 3/uL Normal 2.0-7.7 [facility] Comment on above: Performed By: #### L 900.0098, BTS, L3890.6301, L509.8002, L509.4006, L501.9985, L3890.6102, L500.4050, L3890.6006, L100.0100 #### [facility] [address] [place], [address] Basophils/100 WBC (Bld) 0.7 % Normal 0-1 [facility] Comment on above: Performed By: #### L 900.0098, BTS, L3890.6301, L509.8002, L509.4006, L501.9985, L3890.6102, L500.4050, L3890.6006, L100.0100 #### [facility] [address] [place], [address] Eosinophils/100 WBC (Bld) 2.7 % Normal 0-5 [facility] Comment on above: Performed By: #### L 900.0098, BTS, L3890.6301, L509.8002, L509.4006, L501.9985, L3890.6102, L500.4050, L3890.6006, L100.0100 #### [facility] [address] [place], [address] Erythrocyte distribution width (RBC) [Ratio] 12.2 % Normal 11.6-14.6 [facility] Comment on above: Performed By: #### L 900.0098, BTS, L3890.6301, L509.8002, L509.4006, L501.9985, L3890.6102, L500.4050, L3890.6006, L100.0100 #### [facility] [address] [place], [address] Hematocrit (Bld) [Volume fraction] 34.7 % Low 37-47 [facility] Comment on above: Performed By: #### L 900.0098, BTS, L3890.6301, L509.8002, L509.4006, L501.9985, L3890.6102, L500.4050, L3890.6006, L100.0100 #### [facility] [address] [place], [address] Hemoglobin (Bld) [Mass/Vol] 12.2 g/dL Normal 12.0-15.0 [facility] Comment on above: Performed By: #### L 900.0098, BTS, L3890.6301, L509.8002, L509.4006, L501.9985, L3890.6102, L500.4050, L3890.6006, L100.0100 #### [facility] [address] [place], [address] (395) IG% 0.300 Normal 0.0-0.9 [facility] Comment on above: Result Comment: IG% - Immature Granulocytes (promyelocytes, myelocytes and metamyelocytes) > 1% indicates that a LEFT SHIFT is Present. Performed By: #### L 900.0098, BTS, L3890.6301, L509.8002, L509.4006, L501.9985, L3890.6102, L500.4050, L3890.6006, L100.0100 #### [facility] [address] [place], [address] Lymphocytes/100 WBC (Bld) 31.5 % Normal 19-41 [facility] Comment on above: Performed By: #### L 900.0098, BTS, L3890.6301, L509.8002, L509.4006, L501.9985, L3890.6102, L500.4050, L3890.6006, L100.0100 #### [facility] [address] [place], [address] MCH (RBC) [Entitic mass] 32.3 pg High 27.0-32.0 [facility] Comment on above: Performed By: #### L 900.0098, BTS, L3890.6301, L509.8002, L509.4006, L501.9985, L3890.6102, L500.4050, L3890.6006, L100.0100 #### [facility] [address] [place], [address] MCHC (RBC) [Mass/Vol] 35.2 g/dL Normal 32-36 [facility] Comment on above: Performed By: #### L 900.0098, BTS, L3890.6301, L509.8002, L509.4006, L501.9985, L3890.6102, L500.4050, L3890.6006, L100.0100 #### [facility] [address] [place], [address] ( MCV (RBC) [Entitic vol] 91.8 fL Normal 81-99 [facility] Comment on above: Performed By: #### L 900.0098, BTS, L3890.6301, L509.8002, L509.4006, L501.9985, L3890.6102, L500.4050, L3890.6006, L100.0100 #### [facility] [address] [place], [address] Monocytes/100 WBC (Bld) 6.6 % Normal 0-10 [facility] Comment on above: Performed By: #### L 900.0098, BTS, L3890.6301, L509.8002, L509.4006, L501.9985, L3890.6102, L500.4050, L3890.6006, L100.0100 #### [facility] [address] [place], [address] Neutrophils/100 WBC (Bld) 58.2 % Normal 47-70 [facility] Comment on above: Performed By: #### L 900.0098, BTS, L3890.6301, L509.8002, L509.4006, L501.9985, L3890.6102, L500.4050, L3890.6006, L100.0100 #### [facility] [address] [place], [address] Nucleated RBC (Bld) [#/Vol] 0 10*3/uL Normal 0-5 [facility] Comment on above: Performed By: #### L 900.0098, BTS, L3890.6301, L509.8002, L509.4006, L501.9985, L3890.6102, L500.4050, L3890.6006, L100.0100 #### [facility] [address] [place], [address] Platelet mean volume (Bld) [Entitic vol] 10.7 fL Normal 6.2-12.0 [facility] Comment on above: Performed By: #### L 900.0098, BTS, L3890.6301, L509.8002, L509.4006, L501.9985, L3890.6102, L500.4050, L3890.6006, L100.0100 #### [facility] [address] [place], [address] Platelets (Bld) [#/Vol] 266 10*3/uL Normal 150-450 [facility] Comment on above: Performed By: #### L 900.0098, BTS, L3890.6301, L509.8002, L509.4006, L501.9985, L3890.6102, L500.4050, L3890.6006, L100.0100 #### [facility] [address] [place], [address] RBC (Bld) [#/Vol] 3.78 10*6/uL Low 4.2-5.4 [facility] Comment on above: Performed By: #### L 900.0098, BTS, L3890.6301, L509.8002, L509.4006, L501.9985, L3890.6102, L500.4050, L3890.6006, L100.0100 #### [facility] [address] [place], [place], [id number] (201) RDW SD 41.0 fl Normal 35.1-43.9 [facility] Comment on above: Performed By: #### L 900.0098, BTS, L3890.6301, L509.8002, L509.4006, L501.9985, L3890.6102, L500.4050, L3890.6006, L100.0100 #### [facility] [address] [place], [place], [id number] WBC (Bld) [#/Vol] 7.4 10*3/uL Normal 4.4-11.0 [facility] Comment on above: Performed By: #### L 900.0098, BTS, L3890.6301, L509.8002, L509.4006, L501.9985, L3890.6102, L500.4050, L3890.6006, L100.0100 #### [facility] [address] [place], [address] Carbon dioxide, total [Moles /volume] in Central venous bloodOrdered By: Tiarra Ibrahim on 04-26-2025 CO2 [Moles/Vol] 23.0 mmol/L 21.0-32.0 [facility] Chloride assayOrdered By: González Ibrahim on 04-26-2025 Chloride [Moles/Vol] 103 mmol/L 98-108 [facility] Comprehensive Metabolic Prof ilon 04-26-2025 Albumin [Mass/Vol] 3.7 g/dL Normal 3.5-5.0 [facility] Comment on above: Performed By: #### L 900.0098, BTS, L3890.6301, L509.8002, L509.4006, L501.9985, L3890.6102, L500.4050, L3890.6006, L100.0100 #### [facility] [address] [place], [place], [phone] (530) Albumin/Globulin [Mass ratio] 1.4 {ratio} Normal 0.9-2.4 [facility] Comment on above: Performed By: #### L 900.0098, BTS, L3890.6301, L509.8002, L509.4006, L501.9985, L3890.6102, L500.4050, L3890.6006, L100.0100 #### [facility] [address] [place], [place], [id number] (461) ALK PHOS 45 U/L Normal 35-104 [facility] Comment on above: Performed By: #### L 900.0098, BTS, L3890.6301, L509.8002, L509.4006, L501.9985, L3890.6102, L500.4050, L3890.6006, L100.0100 #### [facility] [address] [place], [place], [id number] (521) ALT [Catalytic activity/Vol] 16 U/L Normal <=34 [facility] Comment on above: Performed By: #### L 900.0098, BTS, L3890.6301, L509.8002, L509.4006, L501.9985, L3890.6102, L500.4050, L3890.6006, L100.0100 #### [facility] [address] [place], [place], [id number] (392) AST [Catalytic activity/Vol] 21 U/L Normal <=31 [facility] Comment on above: Performed By: #### L 900.0098, BTS, L3890.6301, L509.8002, L509.4006, L501.9985, L3890.6102, L500.4050, L3890.6006, L100.0100 #### [facility] [address] [place], [address] Bilirubin [Mass/Vol] 0.33 mg/dL Normal 0.00-1.30 [facility] Comment on above: Performed By: #### L 900.0098, BTS, L3890.6301, L509.8002, L509.4006, L501.9985, L3890.6102, L500.4050, L3890.6006, L100.0100 #### [facility] [address] [place], [address] BUN/CRE 15.8 RATIO Normal 10-20 [facility] Comment on above: Performed By: #### L 900.0098, BTS, L3890.6301, L509.8002, L509.4006, L501.9985, L3890.6102, L500.4050, L3890.6006, L100.0100 #### [facility] [address] [place], [address] Calcium [Mass/Vol] 8.8 mg/dL Normal 7.6-11.0 [facility] Comment on above: Performed By: #### L 900.0098, BTS, L3890.6301, L509.8002, L509.4006, L501.9985, L3890.6102, L500.4050, L3890.6006, L100.0100 #### [facility] [address] [place], [address] Chloride [Moles/Vol] 103 mmol/L Normal 98-108 [facility] Comment on above: Performed By: #### L 900.0098, BTS, L3890.6301, L509.8002, L509.4006, L501.9985, L3890.6102, L500.4050, L3890.6006, L100.0100 #### [facility] [address] [place], [address] (973) CO2 [Moles/Vol] 23.0 mmol/L Normal 21.0-32.0 [facility] Comment on above: Performed By: #### L 900.0098, BTS, L3890.6301, L509.8002, L509.4006, L501.9985, L3890.6102, L500.4050, L3890.6006, L100.0100 #### [facility] [address] [place], [address] (421) Creatinine [Mass/Vol] 0.78 mg/dL Normal 0.70-1.20 [facility] Comment on above: Performed By: #### L 900.0098, BTS, L3890.6301, L509.8002, L509.4006, L501.9985, L3890.6102, L500.4050, L3890.6006, L100.0100 #### [facility] [address] [place], [address] (486) GAP 9 Normal 5-15 [facility] Comment on above: Performed By: #### L 900.0098, BTS, L3890.6301, L509.8002, L509.4006, L501.9985, L3890.6102, L500.4050, L3890.6006, L100.0100 #### [facility] [address] [place], [address] (557) GFR/1.73 sq M.predicted among non-blacks MDRD (S/P/Bld) [Vol rate/Area] 101 mL/min/{1.73_m2} Normal >60 [facility] Comment on above: Result Comment: mL/m in/1.73m2 CKD-EPI Creatinine Equation (2020) Performed By: #### L 900.0098, BTS, L3890.6301, L509.8002, L509.4006, L501.9985, L3890.6102, L500.4050, L3890.6006, L100.0100 #### [facility] [address] [place], [address] Globulin (S) [Mass/Vol] 2.6 g/dL Normal 2.2-4.2 [facility] Comment on above: Performed By: #### L 900.0098, BTS, L3890.6301, L509.8002, L509.4006, L501.9985, L3890.6102, L500.4050, L3890.6006, L100.0100 #### [facility] [address] [place], [address] Glucose [Mass/Vol] 102 mg/dL High 70-99 [facility] Comment on above: Performed By: #### L 900.0098, BTS, L3890.6301, L509.8002, L509.4006, L501.9985, L3890.6102, L500.4050, L3890.6006, L100.0100 #### [facility] [address] [place], [address] Potassium [Moles/Vol] 4.1 mmol/L Normal 3.3-5.1 [facility] Comment on above: Performed By: #### L 900.0098, BTS, L3890.6301, L509.8002, L509.4006, L501.9985, L3890.6102, L500.4050, L3890.6006, L100.0100 #### [facility] [address] [place], [address] Sodium [Moles/Vol] 135 mmol/L Normal 133-145 [facility] Comment on above: Performed By: #### L 900.0098, BTS, L3890.6301, L509.8002, L509.4006, L501.9985, L3890.6102, L500.4050, L3890.6006, L100.0100 #### [facility] [address] [facility] [place], [place], [id number] T PROT 6.3 g/dL Normal 5.9-8.4 [facility] Comment on above: Performed By: #### L 900.0098, BTS, L3890.6301, L509.8002, L509.4006, L501.9985, L3890.6102, L500.4050, L3890.6006, L100.0100 #### [facility] [address] [facility] [place], [address] Urea nitrogen [Mass/Vol] 12 mg/dL Normal 4-19 [facility] Comment on above: Performed By: #### L 900.0098, BTS, L3890.6301, L509.8002, L509.4006, L501.9985, L3890.6102, L500.4050, L3890.6006, L100.0100 #### [facility] [address] [facility] [place], [address] Eosinophil percentageOrdered By: Tiarra Ibrahim on 04-26-2025 Eosinophils/100 WBC (Bld) 2.7 % 0-5 [facility] Erythrocyte distribution wid th ratioOrdered By: Tiarra Ibrahim on 04-26-2025 Erythrocyte distribution width (RBC) [Ratio] 12.2 % 11.6-14.6 [facility] Erythrocyte distribution wid th standard deviationOrdered By: Tiarra Ibrahim on 04-26-2025 Erythrocyte distribution width (RBC) [Ratio] 41.0 fl 35.1-43.9 [facility] Glomerular filtration rate ( GFR) estimation/1.73 sq m using serum, plasma, or whole bOrdered By: Tiarra Ibrahim on 04-26-2025 GFR/1.73 sq M.predicted among non-blacks MDRD (S/P/Bld) [Vol rate/Area] 101 mL/min/{1.73_m2} >60 [facility] Comment on above: mL/min/1.73m2 CKD-EP I Creatinine Equation (2020) Hematocrit Auto (Bld) [Volum e fraction]Ordered By: Tiarra Ibrahim on 04-26-2025 Hematocrit (Bld) [Volume fraction] 34.7 % Low 37-47 [facility] Hemoglobin measurementOrdere d By: Tiarra Ibrahim on 04-26-2025 Hemoglobin (Bld) [Mass/Vol] 12.2 g/dL 12.0-15.0 [facility] Immature granulocytes/100 WB C Auto (Bld)Ordered By: Tiarra Ibrahim on 04-26-2025 Immature granulocytes/100 WBC (Bld) 0.300 % 0.0-0.9 [facility] Comment on above: IG% - Immature Granu locytes (promyelocytes, myelocytes and metamyelocytes) > 1% indicates that a LEFT SHIFT is Present. Laboratory - Chemistry and C hemistry - challengeOrdered By: Tiarra Ibrahim on 04-26-2025 AST [Catalytic activity/Vol] 21 U/L <32 [facility] Glucose Ql (U) Negative [facility] - UrinalysisOrder ed By: Tiarra Ibrahim on 04-26-2025 Protein Ql (U) Trace [facility] MCV (mean corpuscular volume ) determinationOrdered By: Tiarra Ibrahim on 04-26-2025 MCV (RBC) [Entitic vol] 91.8 fL 81-99 [facility] Mean corpuscular hemoglobin (MCH) determinationOrdered By: Tiarra Ibrahim on 04-26-2025 MCH (RBC) [Entitic mass] 32.3 pg High 27.0-32.0 [facility] Mean corpuscular hemoglobin concentration (MCHC) determinationOrdered By: Tiarra Ibrahim on 04-26-2025 MCHC (RBC) [Mass/Vol] 35.2 g/dL 32-36 [facility] Mean platelet volume determi nationOrdered By: Tiarra Ibrahim on 04-26-2025 Platelet mean volume (Bld) [Entitic vol] 10.7 fL 6.2-12.0 [facility] Monocyte percentageOrdered B y: Tiarra Ibrahim on 04-26-2025 Monocytes/100 WBC (Bld) 6.6 % 0-10 [facility] Neutrophil percentageOrdered By: Tiarra Ibrahim on 04-26-2025 Neutrophils/100 WBC (Bld) 58.2 % 47-70 [facility] Nucleated red blood cell per centageOrdered By: Tiarra Ibrahim on 04-26-2025 Nucleated RBC/100 WBC (Bld) [Ratio] 0 % 0-5 [facility] Hand Miter Operator Office Visit Reporton 04-26-2025 Hand Miter Operator Office Visit Report [facility] [address], [address] [place] [address] OFFICE VISIT Date of Service: 04/26/25 MR#: [id number] Acct: [id number] Name: CHERYL WOOD Rep #: [id number] : 1990 Provider: GONZÁLEZ mendez Age/Sex: 34/F [place] [facility] [place]: [place]igned Intake Vital Signs 04/15/25 18:48 04/26/25 08:46 04/26/25 08:48 Height 5 ft 9 in 5 ft 9 in 5 ft 9 in Weight: 303 lb 7 oz BMI 44.8 BP 119/78 Intake Visit Reasons: 1 wk BP recheck per KW Jackspooler Required: No Is patient in pain?: No Allergies minocycline Adverse Reaction (Severe, Verified 04/26/25 08:46) Hives Medications ???Medication ???Instructions ???Recorded ???Confirmed ???Type albuterol sulfate 90 mcg/actuation 2 puff inhalation Q6H PRN 04/26/25 History aerosol inhaler mometasone-formotero l HFA 200 2 puff inhalation BID 02/24/23 History mcg-5 mcg/actuation aerosol inhaler (Dulera) choline 110 mg PO QDAY 03/07/25 04/26/25 H istory multivitamin no.47-iron fum 27 cap PO 03/07/25 04/26/25 History mg-folate no.1 1 mg-dha 300 mg capsule (PNV-DHA) labetalol 200 mg tablet 200 mg PO BID #60 tabs 04/06/25 Rx Last Menstrual Period: 12/29/24 Zika: Zika virus screening: Negative : No Have you fallen in the past year?: No Nurse's Note: pt presents for 1 wk bp check. bp in office 119/78. pt complains of headaches and blurry vision, taking bp at home which have been fine unless she takes her labetalol late. getting labs today and sending p/c ratio as well. PFSH PFSH Medical History Polyneuropathy Hidradenitis suppurativa [...] 2 current occupational status: employed current occupation: [employer] current occupational exposures/hazards: No pets and animals: [...] physical activity do you participate in: none tamir/temple: None seatbelt use: always do you feel safe at home: Yes additional social history: _[employer] work History 3 Elective abortions Hx Para 2 Spontaneous abortions Hx # Term Pregnancies Ectopic pregnancies Hx # Pregnancies Multiple births # of living children 2 Past Pregnancies Del. Date Name GA/Weeks Outcome Route Bth Weight Infant Gen Labor Lgth Anesthesia Del Locatn Provider FOB 06/15/15 Wesn 40 live - full term 8#9oz Female epidural [facility] 12/30/17 Nadine 27 live - 2#1oz Female general [facility] Delivery Date: 06/15/15 Last Updated by: Haley Vazquez IOL, stuck, CS Delivery Date: 12/30/17 Last Updated by: Haley Vazquez previa, cord prolapse, emergency c section HPI 1 wk BP recheck per KW Details: CHERYL WOOD is a 34 year old who presents for routine OB visit. OB Visit LEIDY Calculator Estimated Delivery Date Method Current WG Current Estimate 10/05/25 LMP (Certain) 16w 6d Expected Delivery Route/Plan RLTCS Specific Issue/Plans (more content not included)... Normal [facility] Platelet countOrdered By: González Ibrahim on 04-26-2025 Platelets (Bld) [#/Vol] 266 10*3/uL 150-450 [facility] Potassium measurement (mass/ volume)Ordered By: Tiarra Ibrahim on 04-26-2025 Potassium (Unsp spec) [Mass/Vol] 4.1 mmol/L 3.3-5.1 [facility] Protein+Creatinine Ratio,Uri neon 04-26-2025 PROT:CRE RATIO 65 mg/g CRE Normal 0-200 [facility] Comment on above: Performed By: #### L 900.0098, BTS, L3890.6301, L509.8002, L509.4006, L501.9985, L3890.6102, L500.4050, L3890.6006, L100.0100 #### [facility] [address] [facility] [place], [place], [id number] (688) Protein (U) [Mass/Vol] 11.7 mg/dL Normal 0.0-12.0 [facility] Comment on above: Performed By: #### L 900.0098, BTS, L3890.6301, L509.8002, L509.4006, L501.9985, L3890.6102, L500.4050, L3890.6006, L100.0100 #### [facility] [address] [facility] [place], [address] (733) UR CREAT 181.00 mg/dL Normal 28.00-217.00 [facility] Comment on above: Performed By: #### L 900.0098, BTS, L3890.6301, L509.8002, L509.4006, L501.9985, L3890.6102, L500.4050, L3890.6006, L100.0100 #### [facility] [address] [place], [address] RBC Auto (Bld) [#/Vol]Ordere d By: Tiarra Ibrahim on 04-26-2025 RBC (Bld) [#/Vol] 3.78 10*6/uL Low 4.2-5.4 [facility] Random urine creatinine sameer urement (mass/volume)Ordered By: Tiarra Ibrahim on 04-26-2025 Creatinine Unsp time (U) [Mass/Vol] 181.00 mg/dL 28.00-217.00 [facility] Serum creatinine measurement (mass/volume)Ordered By: Tiarra Ibrahim on 04-26-2025 Creatinine [Mass/Vol] 0.78 mg/dL 0.70-1.20 [facility] Serum globulin measurementOr dered By: Tiarra Ibrahim on 04-26-2025 Globulin (S) [Mass/Vol] 2.6 g/dL 2.2-4.2 [facility] Serum glucose measurement (m ass/volume)Ordered By: Tiarra Ibrahim on 04-26-2025 Glucose [Mass/Vol] 102 mg/dL High 70-99 [facility] Serum or plasma alanine rosado otransferase (ALT) measurementOrdered By: Tiarra Ibrahim on 04-26-2025 ALT [Catalytic activity/Vol] 16 U/L <35 [facility] Serum or plasma albumin sameer urement (mass/volume)Ordered By: Tiarra Ibrahim on 04-26-2025 Albumin [Mass/Vol] 3.7 g/dL 3.5-5.0 [facility] Serum or plasma albumin/glob ulin mass ratioOrdered By: Tiarra Ibrahim on 04-26-2025 Albumin/Globulin [Mass ratio] 1.4 {ratio} 0.9-2.4 [facility] Serum or plasma alkaline jefe sphatase measurementOrdered By: Tiarra Ibrahim on 04-26-2025 ALP [Catalytic activity/Vol] 45 U/L 35-104 [facility] Serum or plasma calcium sameer urement (mass/volume)Ordered By: Tiarra Ibrahim on 04-26-2025 Calcium [Mass/Vol] 8.8 mg/dL 7.6-11.0 [facility] Serum or plasma urea nitroge n measurement (mass/volume)Ordered By: Tiarra Ibrahim on 04-26-2025 Urea nitrogen [Mass/Vol] 12 mg/dL 4-19 [facility] Sodium levelOrdered By: Jessika Ibrahim on 04-26-2025 Sodium [Moles/Vol] 135 mmol/L 133-145 [facility] Total proteinOrdered By: Yvon Ibrahim on 04-26-2025 Protein [Mass/Vol] 6.3 g/dL 5.9-8.4 [facility] Urine protein measurement (m ass/volume)Ordered By: Tiarra Ibrahim on 04-26-2025 Protein (U) [Mass/Vol] 11.7 mg/dL 0.0-12.0 [facility] Urine protein/creatinine mas s ratioOrdered By: Tiarra Ibrahim on 04-26-2025 Protein/Creatinine (U) [Mass ratio] 65 mg/g CRE 0-200 [facility] White blood cell (WBC) count Ordered By: Tiarra Ibrahim on 04-26-2025 WBC (Bld) [#/Vol] 7.4 10*3/uL 4.4-11.0 [facility] Absolute lymphocyte countOrd ered By: Erick Gibson on 04-15-2025 Lymphocytes Auto (Unsp spec) [#/Vol] 2.74 10*3/uL 0.83-4.51 [facility] Absolute neutrophil countOrd ered By: Erick Gibson on 04-15-2025 Neutrophils (Bld) [#/Vol] 4.7 10*3/uL 2.0-7.7 [facility] Anion gap in Serum or Plasma Ordered By: Erick Gibson on 04-15-2025 Anion gap [Moles/Vol] 11 mmol/L 5- [facility] Automated lymphocyte count a s percentage of total leukocytesOrdered By: Erick Gibson on 04-15-2025 Lymphocytes/100 WBC Auto (Unsp spec) 33.8 % 19-41 [facility] BUN/creatinine ratioOrdered By: Erick Gibson on 04-15-2025 Urea nitrogen/Creatinine [Mass ratio] 12.4 mg/mg 10- [facility] Basophil percentageOrdered B y: Erick Gibson on 04-15-2025 Basophils/100 WBC (Bld) 0.5 % 0-1 [facility] Bilirubin Test strip Ql (U)O rdered By: Erick Gibson on 04-15-2025 Bilirubin Ql (U) Negative Negative [facility] Bilirubin, totalOrdered By: Erick Gibson on 04-15-2025 Bilirubin [Mass/Vol] 0.20 mg/dL 0.00-1.30 [facility] CBC W/Diff, Automatedon 03-29 PLT EST MOD DEC Normal ADEQ [facility] Comment on above: Performed By: #### L 900.0098, BTS, L3890.6301, L509.8002, L509.4006, L501.9985, L3890.6102, L500.4050, L3890.6006, L100.0100 #### [facility] [address] [place], [address] RED CELL MORPH NORM C+C Normal NORM C C [facility] Comment on above: Performed By: #### L 900.0098, BTS, L3890.6301, L509.8002, L509.4006, L501.9985, L3890.6102, L500.4050, L3890.6006, L100.0100 #### [facility] [address] [place], [place], [phone] (497) Carbon dioxide, total [Moles /volume] in Central venous bloodOrdered By: Erick Gibson on 04-15-2025 CO2 [Moles/Vol] 21.4 mmol/L 21.0-32.0 [facility] Chloride assayOrdered By: Bg Gibson on 04-15-2025 Chloride [Moles/Vol] 104 mmol/L 98-108 [facility] Comprehensive Metabolic Prof ilon 04-15-2025 Albumin [Mass/Vol] 3.5 g/dL Normal 3.5-5.0 [facility] Comment on above: Performed By: #### L 900.0098, BTS, L3890.6301, L509.8002, L509.4006, L501.9985, L3890.6102, L500.4050, L3890.6006, L100.0100 #### [facility] [address] [place], [address] Albumin/Globulin [Mass ratio] 1.4 {ratio} Normal 0.9-2.4 [facility] Comment on above: Performed By: #### L 900.0098, BTS, L3890.6301, L509.8002, L509.4006, L501.9985, L3890.6102, L500.4050, L3890.6006, L100.0100 #### [facility] [address] [place], [address] ALK PHOS 44 U/L Normal 35-104 [facility] Comment on above: Performed By: #### L 900.0098, BTS, L3890.6301, L509.8002, L509.4006, L501.9985, L3890.6102, L500.4050, L3890.6006, L100.0100 #### [facility] [address] [place], [address] ALT [Catalytic activity/Vol] 14 U/L Normal <=34 [facility] Comment on above: Performed By: #### L 900.0098, BTS, L3890.6301, L509.8002, L509.4006, L501.9985, L3890.6102, L500.4050, L3890.6006, L100.0100 #### [facility] [address] [place], [address] AST [Catalytic activity/Vol] 20 U/L Normal <=31 [facility] Comment on above: Performed By: #### L 900.0098, BTS, L3890.6301, L509.8002, L509.4006, L501.9985, L3890.6102, L500.4050, L3890.6006, L100.0100 #### [facility] [address] [place], [address] Bilirubin [Mass/Vol] 0.20 mg/dL Normal 0.00-1.30 [facility] Comment on above: Performed By: #### L 900.0098, BTS, L3890.6301, L509.8002, L509.4006, L501.9985, L3890.6102, L500.4050, L3890.6006, L100.0100 #### [facility] [address] [place], [address] BUN/CRE 12.4 RATIO Normal 10-20 [facility] Comment on above: Performed By: #### L 900.0098, BTS, L3890.6301, L509.8002, L509.4006, L501.9985, L3890.6102, L500.4050, L3890.6006, L100.0100 #### [facility] [address] [place], [address] Calcium [Mass/Vol] 8.8 mg/dL Normal 7.6-11.0 [facility] Comment on above: Performed By: #### L 900.0098, BTS, L3890.6301, L509.8002, L509.4006, L501.9985, L3890.6102, L500.4050, L3890.6006, L100.0100 #### [facility] [address] [place], [address] Chloride [Moles/Vol] 104 mmol/L Normal 98-108 [facility] Comment on above: Performed By: #### L 900.0098, BTS, L3890.6301, L509.8002, L509.4006, L501.9985, L3890.6102, L500.4050, L3890.6006, L100.0100 #### [facility] [address] [place], [address] CO2 [Moles/Vol] 21.4 mmol/L Normal 21.0-32.0 [facility] Comment on above: Performed By: #### L 900.0098, BTS, L3890.6301, L509.8002, L509.4006, L501.9985, L3890.6102, L500.4050, L3890.6006, L100.0100 #### [facility] [address] [place], [address] Creatinine [Mass/Vol] 0.84 mg/dL Normal 0.70-1.20 [facility] Comment on above: Performed By: #### L 900.0098, BTS, L3890.6301, L509.8002, L509.4006, L501.9985, L3890.6102, L500.4050, L3890.6006, L100.0100 #### [facility] [address] [place], [place], [phone] ([phone] ECRCL 139.09 ml/min Normal 50-250 [facility] Comment on above: Performed By: #### L 900.0098, BTS, L3890.6301, L509.8002, L509.4006, L501.9985, L3890.6102, L500.4050, L3890.6006, L100.0100 #### [facility] [address] [place], [place], [id number] GAP 11 Normal 5-15 [facility] Comment on above: Performed By: #### L 900.0098, BTS, L3890.6301, L509.8002, L509.4006, L501.9985, L3890.6102, L500.4050, L3890.6006, L100.0100 #### [facility] [address] [place], [place], [id number] GFR/1.73 sq M.predicted among non-blacks MDRD (S/P/Bld) [Vol rate/Area] 93 mL/min/{1.73_m2} Normal >60 [facility] Comment on above: Result Comment: mL/m in/1.73m2 CKD-EPI Creatinine Equation (2020) Performed By: #### L 900.0098, BTS, L3890.6301, L509.8002, L509.4006, L501.9985, L3890.6102, L500.4050, L3890.6006, L100.0100 #### [facility] [address] [place], [address] Globulin (S) [Mass/Vol] 2.5 g/dL Normal 2.2-4.2 [facility] Comment on above: Performed By: #### L 900.0098, BTS, L3890.6301, L509.8002, L509.4006, L501.9985, L3890.6102, L500.4050, L3890.6006, L100.0100 #### [facility] [address] [place], [address] Glucose [Mass/Vol] 99 mg/dL Normal 70-99 [facility] Comment on above: Performed By: #### L 900.0098, BTS, L3890.6301, L509.8002, L509.4006, L501.9985, L3890.6102, L500.4050, L3890.6006, L100.0100 #### [facility] [address] [place], [place], [phone] (140) Potassium [Moles/Vol] 4.0 mmol/L Normal 3.3-5.1 [facility] Comment on above: Performed By: #### L 900.0098, BTS, L3890.6301, L509.8002, L509.4006, L501.9985, L3890.6102, L500.4050, L3890.6006, L100.0100 #### [facility] [address] [place], [address] Sodium [Moles/Vol] 137 mmol/L Normal 133-145 [facility] Comment on above: Performed By: #### L 900.0098, BTS, L3890.6301, L509.8002, L509.4006, L501.9985, L3890.6102, L500.4050, L3890.6006, L100.0100 #### [facility] [address] [place], [address] T PROT 5.9 g/dL Normal 5.9-8.4 [facility] Comment on above: Performed By: #### L 900.0098, BTS, L3890.6301, L509.8002, L509.4006, L501.9985, L3890.6102, L500.4050, L3890.6006, L100.0100 #### [facility] [address] [place], [address] Urea nitrogen [Mass/Vol] 10 mg/dL Normal 4-19 [facility] Comment on above: Performed By: #### L 900.0098, BTS, L3890.6301, L509.8002, L509.4006, L501.9985, L3890.6102, L500.4050, L3890.6006, L100.0100 #### [facility] [address] [place], [address] Emergency Department Summary on 04-15-2025 Emergency Department Summary [facility] Medical Records Department [address] [place] [address] Emergency Department Summary 04/15/25 MR#: [id number] Acct: [id number] Name: CHERYL WOOD Rep #: [id number] : 1990 34 From: Erick Gibson MD PCP: Care Physician,No Primary Status:REG ER Location: ED HPI History of Present Illness Chief Complaint: Headache Narrative Narrative: 34-year-old female, G3, P2 at approximately 15 weeks gestation presents with fluctuating blood pressures that she had today. She relates history that she started labetalol recently, 200 mg twice a day for -induced hypertension. She denies any vaginal bleeding or pelvic cramping but states she was checked by her ASSISTANT FLOOR COVERING PRINTER last week, and had normal readings of her blood pressure. She did not have any protein in her urine. Today, she has had fluctuating blood pressures a few times in the 150 systolic and 140s. She had an isolated reading in the 120s. She had taken her 200 mg of labetalol this morning at 9 AM, approximately 10 to 11 hours ago. She states that she has history of chronic headaches and increased intracranial pressure ever since her last . She is concerned about her fluctuating blood pressure readings even with a diastolic of 90. No exacerbating or alleviating factors. [facility] Medical History Polyneuropathy Hidradenitis suppurativa Asthma Headache Obesity Vertigo Peripheral vestibulopathy Fatigue delivery delivered Home Medications ???Medication ???Instructions ???Recorded ???Last Taken ???Type albuterol sulfate 90 mcg/actuation 2 puff inhalation Q6H PRN Unknown History aerosol inhaler mometasone-formotero l HFA 200 2 puff inhalation BID 02/24/23 Unk nown History mcg-5 mcg/actuation aerosol inhaler (Dulera) choline 110 mg PO QDAY 03/07/25 Unknown Hi story multivitamin no.47-iron fum 27 cap PO 03/07/25 Unknown History mg-folate no.1 1 mg-dha 300 mg capsule (PNV-DHA) labetalol 200 mg tablet 200 mg PO BID #60 tabs 04/06/25 Un known Rx Allergy/AdvReac Type Severity Reaction Status Date / Time minocycline AdvReac Severe Hives Verified 04/15/25 18:50 Family History Maternal Grandfather Diabetes Heart disease [...] pulmonary disease) Maternal Grandfather Cancer Prostate cancer Surgical History History of third molar tooth extraction Hx of section Status post labral repair of shoulder Social History adopted: No household members: significant other, children and other details: custody of nephew 13yo housing: house number of children: 2 current occupational status: employed current occupation: [employer] current occupational exposures/hazards: No pets and animals: [...] physical activity do you participate in: none tamir/temple: None seatbelt use: always do you feel safe at home: Yes additional social history: [employer] work ROS ROS ED ROS Narrative Review of systems is positive for headache with history of intracranial pressure. Patient concerned about fluctuating blood pressure readings throughout the day today. No vaginal bleeding or pelvic cramping. No exacerbating or alleviating factors. EXAM Physical Exam Narrative Exam Narrative: Afebrile. Vital signs noted. Nontoxic-appearing. Cardiovascular examination is regular rate and rhythm. Lungs are clear to auscultation bilaterally. Abdomen is soft and nontender without guarding or rebound. Neurological examination nonfocal, nonlateralizing. No noted pedal edema. Const Vital Signs: (more content not included)... Normal [facility] Eosinophil percentageOrdered By: Erick Gibson on 04-15-2025 Eosinophils/100 WBC (Bld) 2.1 % 0-5 [facility] Erythrocyte distribution wid th ratioOrdered By: Erick Gibson on 04-15-2025 Erythrocyte distribution width (RBC) [Ratio] 12.0 % 11.6-14.6 [facility] Erythrocyte distribution wid th standard deviationOrdered By: Erick Gibson on 04-15-2025 Erythrocyte distribution width (RBC) [Ratio] 40.7 fl 35.1-43.9 [facility] Erythrocyte morphology asses smentOrdered By: Erick Gibson on 04-15-2025 RBC morphology finding Nom (Bld) NORM C+C NORMAL NORM C&C [facility] Glomerular filtration rate ( GFR) estimation/1.73 sq m using serum, plasma, or whole bOrdered By: Erick Gibson on 04-15-2025 GFR/1.73 sq M.predicted among non-blacks MDRD (S/P/Bld) [Vol rate/Area] 93 mL/min/{1.73_m2} >60 [facility] Comment on above: mL/min/1.73m2 CKD-EP I Creatinine Equation (2020) Hematocrit Auto (Bld) [Volum e fraction]Ordered By: Erick Gibson on 04-15-2025 Hematocrit (Bld) [Volume fraction] 33.9 % Low 37-47 [facility] Hemoglobin measurementOrdere d By: Erick Gibson on 04-15-2025 Hemoglobin (Bld) [Mass/Vol] 12.0 g/dL 12.0-15.0 [facility] Immature granulocytes/100 WB C Auto (Bld)Ordered By: Erick Gibson on 04-15-2025 Immature granulocytes/100 WBC (Bld) 0.200 % 0.0-0.9 [facility] Comment on above: IG% - Immature Granu locytes (promyelocytes, myelocytes and metamyelocytes) > 1% indicates that a LEFT SHIFT is Present. Ketones Test strip Ql (U)Ord ered By: Erick Gibson on 04-15-2025 Ketones Ql (U) 5 mg/dl High Negative [facility] - Chemistry and C hemistry - challengeOrdered By: Erick Gibson on 04-15-2025 AST [Catalytic activity/Vol] 20 U/L <32 [facility] MCV (mean corpuscular volume ) determinationOrdered By: Erick Gibson on 04-15-2025 MCV (RBC) [Entitic vol] 91.9 fL 81-99 [facility] Mean corpuscular hemoglobin (MCH) determinationOrdered By: Erick Gibson on 04-15-2025 MCH (RBC) [Entitic mass] 32.5 pg High 27.0-32.0 [facility] Mean corpuscular hemoglobin concentration (MCHC) determinationOrdered By: Erick Gibson on 04-15-2025 MCHC (RBC) [Mass/Vol] 35.4 g/dL 32-36 [facility] Mean platelet volume determi nationOrdered By: Erick Gibson on 04-15-2025 Platelet mean volume (Bld) [Entitic vol] 10.3 fL 6.2-12.0 [facility] Microscopic analysis of urin e for red blood cells (RBC)Ordered By: Erick Gibson on 04-15-2025 Microscopic analysis of urine for red blood cells (RBC) 0 SEEN /hpf 0-5 [facility] Monocyte percentageOrdered B y: Erick Gibson on 04-15-2025 Monocytes/100 WBC (Bld) 6.0 % 0-10 [facility] Mucus LM Ql (Urine sed)Order ed By: Erick Gibson on 04-15-2025 Mucus Ql (Urine sed) 0 SEEN /hpf [facility] Neutrophil percentageOrdered By: Erick Gibson on 04-15-2025 Neutrophils/100 WBC (Bld) 57.4 % 47-70 [facility] Nitrite Test strip Ql (U)Ord ered By: Erick Gibson on 04-15-2025 Nitrite Ql (U) Negative Negative [facility] Nucleated red blood cell per centageOrdered By: Erick Gibson on 04-15-2025 Nucleated RBC/100 WBC (Bld) [Ratio] 0 % 0-5 [facility] Platelet countOrdered By: Bg Gibson on 04-15-2025 Platelets (Bld) [#/Vol] 257 10*3/uL 150-450 [facility] Platelet estimateOrdered By: Erick Gibson on 04-15-2025 Platelets LM Ql (Bld) MOD DEC ADEQ [facility] Potassium measurement (mass/ volume)Ordered By: Erick Gibsno on 04-15-2025 Potassium (Unsp spec) [Mass/Vol] 4.0 mmol/L 3.3-5.1 [facility] Protein Test strip Ql (U)Ord ered By: Erick Gibson on 04-15-2025 Protein Ql (U) 15 mg/dl High Negative [facility] Protein+Creatinine Ratio,Uri neon 04-15-2025 PROT:CRE RATIO 60 mg/g CRE Normal 0-200 [facility] Comment on above: Performed By: #### L 900.0098, BTS, L3890.6301, L509.8002, L509.4006, L501.9985, L3890.6102, L500.4050, L3890.6006, L100.0100 #### [facility] [address] [place], [address] Protein (U) [Mass/Vol] 16.9 mg/dL High 0.0-12.0 [facility] Comment on above: Performed By: #### L 900.0098, BTS, L3890.6301, L509.8002, L509.4006, L501.9985, L3890.6102, L500.4050, L3890.6006, L100.0100 #### [facility] [address] [place], [address] UR CREAT 283.00 mg/dL High 28.00-217.00 [facility] Comment on above: Performed By: #### L 900.0098, BTS, L3890.6301, L509.8002, L509.4006, L501.9985, L3890.6102, L500.4050, L3890.6006, L100.0100 #### [facility] [address] [place], [address] RBC Auto (Bld) [#/Vol]Ordere d By: Erick Gibson on 04-15-2025 RBC (Bld) [#/Vol] 3.69 10*6/uL Low 4.2-5.4 [facility] Random urine creatinine sameer urement (mass/volume)Ordered By: Erick Gibson on 04-15-2025 Creatinine Unsp time (U) [Mass/Vol] 283.00 mg/dL High 28.00-217.00 [facility] Serum creatinine measurement (mass/volume)Ordered By: Erick Gibson on 04-15-2025 Creatinine [Mass/Vol] 0.84 mg/dL 0.70-1.20 [facility] Serum globulin measurementOr dered By: Erick Gibson on 04-15-2025 Globulin (S) [Mass/Vol] 2.5 g/dL 2.2-4.2 [facility] Serum glucose measurement (m ass/volume)Ordered By: Erick Gibson on 04-15-2025 Glucose [Mass/Vol] 99 mg/dL 70-99 [facility] Serum or plasma alanine rosado otransferase (ALT) measurementOrdered By: Erick Gibson on 04-15-2025 ALT [Catalytic activity/Vol] 14 U/L <35 [facility] Serum or plasma albumin sameer urement (mass/volume)Ordered By: Erick Gibson on 04-15-2025 Albumin [Mass/Vol] 3.5 g/dL 3.5-5.0 [facility] Serum or plasma albumin/glob ulin mass ratioOrdered By: Erick Gibson on 04-15-2025 Albumin/Globulin [Mass ratio] 1.4 {ratio} 0.9-2.4 [facility] Serum or plasma alkaline jefe sphatase measurementOrdered By: Erick Gibson on 04-15-2025 ALP [Catalytic activity/Vol] 44 U/L 35-104 [facility] Serum or plasma calcium sameer urement (mass/volume)Ordered By: Erick Gibson on 04-15-2025 Calcium [Mass/Vol] 8.8 mg/dL 7.6-11.0 [facility] Serum or plasma urea nitroge n measurement (mass/volume)Ordered By: Erick Gibson on 04-15-2025 Urea nitrogen [Mass/Vol] 10 mg/dL 4-19 [facility] Sodium levelOrdered By: Erick Gibson on 04-15-2025 Sodium [Moles/Vol] 137 mmol/L 133-145 [facility] Squamous epithelial cells de tection in urine sediment by light microscopyOrdered By: Erick Gibson on 04-15-2025 Epithelial cells.squamous LM Ql (Urine sed) 0-5 SEEN /hpf 5-10 [facility] Total proteinOrdered By: Sana Gibson on 04-15-2025 Protein [Mass/Vol] 5.9 g/dL 5.9-8.4 [facility] Urinalysis, Completeon 04-15 BACTERIA 3+ /hpf Normal None Seen [facility] Comment on above: Order Comment: CLEAN CATCH Performed By: #### L 900.0098, BTS, L3890.6301, L509.8002, L509.4006, L501.9985, L3890.6102, L500.4050, L3890.6006, L100.0100 #### [facility] [address] [place], [address] EPI,SQUAMOUS 0-5 SEEN Normal 5-10 [facility] Comment on above: Order Comment: CLEAN CATCH Performed By: #### L 900.0098, BTS, L3890.6301, L509.8002, L509.4006, L501.9985, L3890.6102, L500.4050, L3890.6006, L100.0100 #### [facility] [address] [place], [address] WBC 0-5 SEEN Normal 0-5 [facility] Comment on above: Order Comment: CLEAN CATCH Performed By: #### L 900.0098, BTS, L3890.6301, L509.8002, L509.4006, L501.9985, L3890.6102, L500.4050, L3890.6006, L100.0100 #### [facility] [address] [place], [place], [address] [phone] Mucus Ql (Urine sed) 0 SEEN Normal [facility] Comment on above: Order Comment: CLEAN CATCH Performed By: #### L 900.0098, BTS, L3890.6301, L509.8002, L509.4006, L501.9985, L3890.6102, L500.4050, L3890.6006, L100.0100 #### [facility] [address] [place], [address] RBC 0 SEEN Normal 0-5 [facility] Comment on above: Order Comment: CLEAN CATCH Performed By: #### L 900.0098, BTS, L3890.6301, L509.8002, L509.4006, L501.9985, L3890.6102, L500.4050, L3890.6006, L100.0100 #### [facility] [address] [place], [address] Urine clarityOrdered By: Sana Gibson on 04-15-2025 Clarity (U) Clear Clear [facility] Urine color determinationOrd ered By: Erick Gibson on 04-15-2025 Color (U) Yellow Yellow [facility] Urine glucose detectionOrder ed By: Erick Gibson on 04-15-2025 Glucose Ql (U) Normal mg/dl Normal [facility] Urine leukocyte esterase det ection by dipstickOrdered By: Erick Gibson on 04-15-2025 Leukocyte esterase Test strip Ql (U) Negative Negative [facility] Urine pHOrdered By: Erick lopez on 04-15-2025 pH (U) 5.0 [pH] 5.0 - 8.0 [facility] Urine protein measurement (m ass/volume)Ordered By: Erick Gibson on 04-15-2025 Protein (U) [Mass/Vol] 16.9 mg/dL High 0.0-12.0 [facility] Urine protein/creatinine mas s ratioOrdered By: Erick Gibson on 04-15-2025 Protein/Creatinine (U) [Mass ratio] 60 mg/g CRE 0-200 [facility] Urine sediment bacteria coun t by microscopy (number/high power field)Ordered By: Erick Gibson on 04-15-2025 Bacteria LM.HPF (Urine sed) [#/Area] 3 /[HPF] None Seen [facility] Urine specific gravity measu rementOrdered By: Erick Gibson on 04-15-2025 Specific gravity (U) [Rel density] 1.025 1.002-1.030 [facility] Urine urobilinogen measureme ntOrdered By: Erick Gibson on 04-15-2025 Urobilinogen Ql (U) Normal mg/dl Normal [facility] White blood cell (WBC) count Ordered By: Erick Gibson on 04-15-2025 WBC (Bld) [#/Vol] 8.1 10*3/uL 4.4-11.0 [facility] White blood cell countOrdere d By: Erick Gibson on 04-15-2025 White blood cell count 0-5 SEEN /hpf 0-5 [facility] - Chemistry and C hemistry - challengeOrdered By: Chaya Alejandro on 04-13-2025 Glucose Ql (U) Negative [facility] - UrinalysisOrder ed By: Chaya Alejandro on 04-13-2025 Protein Ql (U) Negative [facility] Hand Miter Operator Office Visit Reporton 04-13-2025 Hand Miter Operator Office Visit Report [facility], [address] [place] [address] OFFICE VISIT Date of Service: 04/13/25 MR#: [id number] Acct: [id number] Name: CHERYL WOOD Omid Rep #: [id number] : 1990 Provider: JUNG Small ams Age/Sex: 34/F [place] [facility] [place]: S[place] Intake Vital Signs 04/06/25 13:07 04/13/25 15:06 04/13/25 15:12 Height 5 ft 9 in 5 ft 9 in 5 ft 9 in Weight: 301 lb BMI 44.4 BP 132/82 H Intake Visit Reasons: 1wk BP Check *per Jackspooler Required: No Is patient in pain?: No [...] 2 current occupational status: employed current occupation: [employer] current occupational exposures/hazards: No pets and animals: [...] physical activity do you participate in: none tamir/temple: None seatbelt use: always do you feel safe at home: Yes additional social history: [employer] work History 3 Elective abortions Hx Para 2 Spontaneous abortions Hx # Term Pregnancies Ectopic pregnancies Hx # Pregnancies Multiple births # of living children 2 Past Pregnancies Del. Date Name GA/Weeks Outcome Route Bth Weight Infant Gen Labor Lgth Anesthesia Del Locatn Provider FOB 06/15/15 Ellie 40 live - full term 8#9oz Female epidural [facility] 12/30/17 Nadine 27 live - 2#1oz Female general [facility] Titi Delivery Date: 06/15/15 Last Updated by: Haley [...] and appro (more content not included)... Normal [facility] - Chemistry and C hemistry - challengeOrdered By: Tiarra Ibrahim on 04-06-2025 Glucose Ql (U) Negative [facility] - UrinalysisOrder ed By: Tiarra Ibrahim on 04-06-2025 Protein Ql (U) Negative [facility] Hand Miter Operator Office Visit Reporton 04-06-2025 Hand Miter Operator Office Visit Report [facility] [address], [address] [place] [address] OFFICE VISIT Date of Service: 04/06/25 MR#: [id number] Acct: [id number] Name: CHERYL WOOD Rep #: [id number] : 1990 Provider: GONZÁLEZ mendez Age/Sex: 34/F [place] [facility] [place]: [place] Intake Vital Signs 03/07/25 16:01 03/22/25 14:43 04/06/25 13:07 Height 5 ft 9 in 5 ft 9 in 5 ft 9 in Weight: 297 lb 6 oz BMI 43.9 BP 142/82 H Intake Visit Reasons: 14wk ob Jackspooler Required: No Is patient in pain?: No [...] 2 current occupational status: employed current occupation: [employer] current occupational exposures/hazards: No pets and animals: [...] physical activity do you participate in: none tamir/temple: None seatbelt use: always do you feel safe at home: Yes additional social history: _[employer] work History 3 Elective abortions Hx Para 2 Spontaneous abortions Hx # Term Pregnancies Ectopic pregnancies Hx # Pregnancies Multiple births # of living children 2 Past Pregnancies Del. Date Name GA/Weeks Outcome Route Bth Weight Infant Gen Labor Lgth Anesthesia Del Locatn Provider FOB 06/15/15 Ellie 40 live - full term 8#9oz Female [facility]ural [facility] Nadine 27 live - 2#1oz Female [facility] Delivery Date: 06/15/15 Last Updated by: Haley [...] care an (more content not included)... Normal [facility] Progress Noteon 03-24-2025 [employer] Authentication Interface Message Text [facility] MATERNAL- MEDICINE CONSULT Referring/Requesting Provider: Comfort Agee MD PCP: No Primary Care, MD Sergei INDICATION FOR CONSULT: [...] 27w1d 0.94 kg F CS-Unspec Gen N ANGELA Complications: Placenta Previa, PROM (premature rupture of membranes), Cord prolapse 1 Term 05/2015 41w0d 4.026 kg F CS-Unspec EPI N ANGELA Complications: Failure to Progress in Second Stage Past Medical History: Diagnosis Date Autoimmune disease BMI 39.0-39.9,adult 01/19/2018 Elevated intracranial pressure has been bothered by this lately; lost 60 pounds and from losing the weight. went back to work and gthen gained all weight back and it is [...] asthma has been feeling a bit more "tight chested" lately with wheezing, but resolves with the albuterol. needs to find a new PCP Past Surgical History: Procedure Laterality Date SECTION 2014 and 2018 DENTAL SURGERY molars surgically removed SHOULDER SURGERY [...] 03/24/25 encounter (Office Visit) with Caitlyn Granado, Medication Sig Dispense Refill Vit-Fe Fumarate-FA ( [...] 1d with an LEIDY of 10/05/2025. 2. [place] rump length measurement is consistent with established gestational age. 3. First trimester nuchal translucency appeared normal for this gestational age, 1.6 mm. IMPRESSION AND RECOMMENDATIONS: Cheryl is a 34 y.o. at 12w1d with Active Non-Hospital Problems Diagnosis Date Noted History of delivery, currently in first trimester 03/24/2025 Priority: High - Prior with PPROM at 19 weeks, admission x 1 month at [facility], had cord prolapse as emergent delivery [...] 24-28 weeks (more content not included)... Normal [facility] Absolute lymphocyte countOrd ered By: Comfort Agee on 03-22-2025 Lymphocytes Auto (Unsp spec) [#/Vol] 2.46 10*3/uL 0.83-4.51 [facility] Absolute neutrophil countOrd ered By: Comfort Agee on 03-22-2025 Neutrophils (Bld) [#/Vol] 4.4 10*3/uL 2.0-7.7 [facility] Anion gap in Serum or Plasma Ordered By: Comfort Agee on 03-22-2025 Anion gap [Moles/Vol] 13 mmol/L 5-15 [facility] Automated lymphocyte count a s percentage of total leukocytesOrdered By: Comfort Agee on 03-22-2025 Lymphocytes/100 WBC Auto (Unsp spec) 33.1 % 19-41 [facility] BUN/creatinine ratioOrdered By: Comfort Agee on 03-22-2025 Urea nitrogen/Creatinine [Mass ratio] 14.6 mg/mg 10-20 [facility] Basophil percentageOrdered B y: Comfort Agee on 03-22-2025 Basophils/100 WBC (Bld) 0.7 % 0-1 [facility] Bilirubin, totalOrdered By: Comfort Agee on 03-22-2025 Bilirubin [Mass/Vol] 0.33 mg/dL 0.00-1.30 [facility] CBC W/Diff, Automatedon 02-28 Absolute Lymph 2.46 X10 3/uL Normal 0.83-4.51 [facility] Comment on above: Performed By: #### L 900.0098, BTS, L3890.6301, L509.8002, L509.4006, L501.9985, L3890.6102, L500.4050, L3890.6006, L100.0100 #### [facility] [address] [place], [address] Absolute Neut 4.4 X10 3/uL Normal 2.0-7.7 [facility] Comment on above: Performed By: #### L 900.0098, BTS, L3890.6301, L509.8002, L509.4006, L501.9985, L3890.6102, L500.4050, L3890.6006, L100.0100 #### [facility] [address] [place], [address] Basophils/100 WBC (Bld) 0.7 % Normal 0-1 [facility] Comment on above: Performed By: #### L 900.0098, BTS, L3890.6301, L509.8002, L509.4006, L501.9985, L3890.6102, L500.4050, L3890.6006, L100.0100 #### [facility] [address] [place], [address] Eosinophils/100 WBC (Bld) 1.9 % Normal 0-5 [facility] Comment on above: Performed By: #### L 900.0098, BTS, L3890.6301, L509.8002, L509.4006, L501.9985, L3890.6102, L500.4050, L3890.6006, L100.0100 #### [facility] [address] [facility] [place], [address] Erythrocyte distribution width (RBC) [Ratio] 11.9 % Normal 11.6-14.6 [facility] Comment on above: Performed By: #### L 900.0098, BTS, L3890.6301, L509.8002, L509.4006, L501.9985, L3890.6102, L500.4050, L3890.6006, L100.0100 #### [facility] [address] [address] [place], [address] Hematocrit (Bld) [Volume fraction] 36.6 % Low 37-47 [facility] Comment on above: Performed By: #### L 900.0098, BTS, L3890.6301, L509.8002, L509.4006, L501.9985, L3890.6102, L500.4050, L3890.6006, L100.0100 #### [facility] [address] [place], [address] Hemoglobin (Bld) [Mass/Vol] 13.1 g/dL Normal 12.0-15.0 [facility] Comment on above: Performed By: #### L 900.0098, BTS, L3890.6301, L509.8002, L509.4006, L501.9985, L3890.6102, L500.4050, L3890.6006, L100.0100 #### [facility] [address] [facility] [place], [address] IG% 0.100 Normal 0.0-0.9 [facility] Comment on above: Result Comment: IG% - Immature Granulocytes (promyelocytes, myelocytes and metamyelocytes) > 1% indicates that a LEFT SHIFT is Present. Performed By: #### L 900.0098, BTS, L3890.6301, L509.8002, L509.4006, L501.9985, L3890.6102, L500.4050, L3890.6006, L100.0100 #### [facility] [address] [place], [address] Lymphocytes/100 WBC (Bld) 33.1 % Normal 19-41 [facility] Comment on above: Performed By: #### L 900.0098, BTS, L3890.6301, L509.8002, L509.4006, L501.9985, L3890.6102, L500.4050, L3890.6006, L100.0100 #### [facility] [address] [facility] [place], [address] MCH (RBC) [Entitic mass] 32.0 pg Normal 27.0-32.0 [facility] Comment on above: Performed By: #### L 900.0098, BTS, L3890.6301, L509.8002, L509.4006, L501.9985, L3890.6102, L500.4050, L3890.6006, L100.0100 #### [facility] [address] [facility] [place], [address] MCHC (RBC) [Mass/Vol] 35.8 g/dL Normal 32-36 [facility] Comment on above: Performed By: #### L 900.0098, BTS, L3890.6301, L509.8002, L509.4006, L501.9985, L3890.6102, L500.4050, L3890.6006, L100.0100 #### [facility] [address] [facility] [place], [address] MCV (RBC) [Entitic vol] 89.5 fL Normal 81-99 [facility] Comment on above: Performed By: #### L 900.0098, BTS, L3890.6301, L509.8002, L509.4006, L501.9985, L3890.6102, L500.4050, L3890.6006, L100.0100 #### [facility] [address] [facility] [address] [place], [address] Monocytes/100 WBC (Bld) 5.1 % Normal 0-10 [facility] Comment on above: Performed By: #### L 900.0098, BTS, L3890.6301, L509.8002, L509.4006, L501.9985, L3890.6102, L500.4050, L3890.6006, L100.0100 #### [facility] [address] [place], [address] Neutrophils/100 WBC (Bld) 59.1 % Normal 47-70 [facility] Comment on above: Performed By: #### L 900.0098, BTS, L3890.6301, L509.8002, L509.4006, L501.9985, L3890.6102, L500.4050, L3890.6006, L100.0100 #### [facility] [address] [place], [address] Nucleated RBC (Bld) [#/Vol] 0 10*3/uL Normal 0-5 [facility] Comment on above: Performed By: #### L 900.0098, BTS, L3890.6301, L509.8002, L509.4006, L501.9985, L3890.6102, L500.4050, L3890.6006, L100.0100 #### [facility] [address] [place], [address] Platelet mean volume (Bld) [Entitic vol] 10.7 fL Normal 6.2-12.0 [facility] Comment on above: Performed By: #### L 900.0098, BTS, L3890.6301, L509.8002, L509.4006, L501.9985, L3890.6102, L500.4050, L3890.6006, L100.0100 #### [facility] [address] [facility] [place], [address] Platelets (Bld) [#/Vol] 280 10*3/uL Normal 150-450 [facility] Comment on above: Performed By: #### L 900.0098, BTS, L3890.6301, L509.8002, L509.4006, L501.9985, L3890.6102, L500.4050, L3890.6006, L100.0100 #### [facility] [address] [place], [address] RBC (Bld) [#/Vol] 4.09 10*6/uL Low 4.2-5.4 [facility] Comment on above: Performed By: #### L 900.0098, BTS, L3890.6301, L509.8002, L509.4006, L501.9985, L3890.6102, L500.4050, L3890.6006, L100.0100 #### [facility] [address] [place], [address] (038) RDW SD 38.6 fl Normal 35.1-43.9 [facility] Comment on above: Performed By: #### L 900.0098, BTS, L3890.6301, L509.8002, L509.4006, L501.9985, L3890.6102, L500.4050, L3890.6006, L100.0100 #### [facility] [address] [place], [place], [phone] (587) WBC (Bld) [#/Vol] 7.4 10*3/uL Normal 4.4-11.0 [facility] Comment on above: Performed By: #### L 900.0098, BTS, L3890.6301, L509.8002, L509.4006, L501.9985, L3890.6102, L500.4050, L3890.6006, L100.0100 #### [facility] [address] [place], [place], [id number] (806) Carbon dioxide, total [Moles /volume] in Central venous bloodOrdered By: Comfort Agee on 03-22-2025 CO2 [Moles/Vol] 20.7 mmol/L Low 21.0-32.0 [facility] Chloride assayOrdered By: Teresa Agee on 03-22-2025 Chloride [Moles/Vol] 99 mmol/L 98-108 [facility] Comprehensive Metabolic Prof ilon 03-22-2025 Albumin [Mass/Vol] 4.0 g/dL Normal 3.5-5.0 [facility] Comment on above: Order Comment: NIPT with gender, undecided about carrier Performed By: #### L 900.0098, BTS, L3890.6301, L509.8002, L509.4006, L501.9985, L3890.6102, L500.4050, L3890.6006, L100.0100 #### [facility] [address] [place], [address] Albumin/Globulin [Mass ratio] 1.5 {ratio} Normal 0.9-2.4 [facility] Comment on above: Order Comment: NIPT with gender, undecided about carrier Performed By: #### L 900.0098, BTS, L3890.6301, L509.8002, L509.4006, L501.9985, L3890.6102, L500.4050, L3890.6006, L100.0100 #### [facility] [address] [place], [address] ALK PHOS 50 U/L Normal 35-104 [facility] Comment on above: Order Comment: NIPT with gender, undecided about carrier Performed By: #### L 900.0098, BTS, L3890.6301, L509.8002, L509.4006, L501.9985, L3890.6102, L500.4050, L3890.6006, L100.0100 #### [facility] [address] [place], [address] ALT [Catalytic activity/Vol] 15 U/L Normal <=34 [facility] Comment on above: Order Comment: NIPT with gender, undecided about carrier Performed By: #### L 900.0098, BTS, L3890.6301, L509.8002, L509.4006, L501.9985, L3890.6102, L500.4050, L3890.6006, L100.0100 #### [facility] [address] [place], [address] AST [Catalytic activity/Vol] 19 U/L Normal <=31 [facility] Comment on above: Order Comment: NIPT with gender, undecided about carrier Performed By: #### L 900.0098, BTS, L3890.6301, L509.8002, L509.4006, L501.9985, L3890.6102, L500.4050, L3890.6006, L100.0100 #### [facility] [address] [place], [address] Bilirubin [Mass/Vol] 0.33 mg/dL Normal 0.00-1.30 [facility] Comment on above: Order Comment: NIPT with gender, undecided about carrier Performed By: #### L 900.0098, BTS, L3890.6301, L509.8002, L509.4006, L501.9985, L3890.6102, L500.4050, L3890.6006, L100.0100 #### [facility] [address] [place], [place], [id number] (545) BUN/CRE 14.6 RATIO Normal 10-20 [facility] Comment on above: Order Comment: NIPT with gender, undecided about carrier Performed By: #### L 900.0098, BTS, L3890.6301, L509.8002, L509.4006, L501.9985, L3890.6102, L500.4050, L3890.6006, L100.0100 #### [facility] [address] [place], [address] Calcium [Mass/Vol] 9.3 mg/dL Normal 7.6-11.0 [facility] Comment on above: Order Comment: NIPT with gender, undecided about carrier Performed By: #### L 900.0098, BTS, L3890.6301, L509.8002, L509.4006, L501.9985, L3890.6102, L500.4050, L3890.6006, L100.0100 #### [facility] [address] [place], [address] Chloride [Moles/Vol] 99 mmol/L Normal 98-108 [facility] Comment on above: Order Comment: NIPT with gender, undecided about carrier Performed By: #### L 900.0098, BTS, L3890.6301, L509.8002, L509.4006, L501.9985, L3890.6102, L500.4050, L3890.6006, L100.0100 #### [facility] [address] [place], [address] CO2 [Moles/Vol] 20.7 mmol/L Low 21.0-32.0 [facility] Comment on above: Order Comment: NIPT with gender, undecided about carrier Performed By: #### L 900.0098, BTS, L3890.6301, L509.8002, L509.4006, L501.9985, L3890.6102, L500.4050, L3890.6006, L100.0100 #### [facility] [address] [place], [address] Creatinine [Mass/Vol] 0.82 mg/dL Normal 0.70-1.20 [facility] Comment on above: Order Comment: NIPT with gender, undecided about carrier Performed By: #### L 900.0098, BTS, L3890.6301, L509.8002, L509.4006, L501.9985, L3890.6102, L500.4050, L3890.6006, L100.0100 #### [facility] [address] [facility]. [place], [place], [id number] GAP 13 Normal 5-15 [facility] Comment on above: Order Comment: NIPT with gender, undecided about carrier Performed By: #### L 900.0098, BTS, L3890.6301, L509.8002, L509.4006, L501.9985, L3890.6102, L500.4050, L3890.6006, L100.0100 #### [facility] [address] [facility] [place], [address] GFR/1.73 sq M.predicted among non-blacks MDRD (S/P/Bld) [Vol rate/Area] 96 mL/min/{1.73_m2} Normal >60 [facility] Comment on above: Order Comment: NIPT with gender, undecided about carrier Result Comment: mL/m in/1.73m2 CKD-EPI Creatinine Equation (2020) Performed By: #### L 900.0098, BTS, L3890.6301, L509.8002, L509.4006, L501.9985, L3890.6102, L500.4050, L3890.6006, L100.0100 #### [facility] [address] [place], [place], [address] Globulin (S) [Mass/Vol] 2.7 g/dL Normal 2.2-4.2 [facility] Comment on above: Order Comment: NIPT with gender, undecided about carrier Performed By: #### L 900.0098, BTS, L3890.6301, L509.8002, L509.4006, L501.9985, L3890.6102, L500.4050, L3890.6006, L100.0100 #### [facility] [address] [place], [address] Glucose [Mass/Vol] 86 mg/dL Normal 70-99 [facility] Comment on above: Order Comment: NIPT with gender, undecided about carrier Performed By: #### L 900.0098, BTS, L3890.6301, L509.8002, L509.4006, L501.9985, L3890.6102, L500.4050, L3890.6006, L100.0100 #### [facility] [address] [place], [address] Potassium [Moles/Vol] 3.8 mmol/L Normal 3.3-5.1 [facility] Comment on above: Order Comment: NIPT with gender, undecided about carrier Performed By: #### L 900.0098, BTS, L3890.6301, L509.8002, L509.4006, L501.9985, L3890.6102, L500.4050, L3890.6006, L100.0100 #### [facility] [address] [place], [address] Sodium [Moles/Vol] 133 mmol/L Normal 133-145 [facility] Comment on above: Order Comment: NIPT with gender, undecided about carrier Performed By: #### L 900.0098, BTS, L3890.6301, L509.8002, L509.4006, L501.9985, L3890.6102, L500.4050, L3890.6006, L100.0100 #### [facility] [address] [place], [address] T PROT 6.7 g/dL Normal 5.9-8.4 [facility] Comment on above: Order Comment: NIPT with gender, undecided about carrier Performed By: #### L 900.0098, BTS, L3890.6301, L509.8002, L509.4006, L501.9985, L3890.6102, L500.4050, L3890.6006, L100.0100 #### [facility] [address] [place], [address] Urea nitrogen [Mass/Vol] 12 mg/dL Normal 4-19 [facility] Comment on above: Order Comment: NIPT with gender, undecided about carrier Performed By: #### L 900.0098, BTS, L3890.6301, L509.8002, L509.4006, L501.9985, L3890.6102, L500.4050, L3890.6006, L100.0100 #### [facility] [address] [place], [place], [id number] Eosinophil percentageOrdered By: Comfort Agee on 03-22-2025 Eosinophils/100 WBC (Bld) 1.9 % 0-5 [facility] Erythrocyte distribution wid th ratioOrdered By: Comfort Agee on 03-22-2025 Erythrocyte distribution width (RBC) [Ratio] 11.9 % 11.6-14.6 [facility] Erythrocyte distribution wid th standard deviationOrdered By: Comfort Agee on 03-22-2025 Erythrocyte distribution width (RBC) [Ratio] 38.6 fl 35.1-43.9 [facility] Glomerular filtration rate ( GFR) estimation/1.73 sq m using serum, plasma, or whole bOrdered By: Comfort Agee on 03-22-2025 GFR/1.73 sq M.predicted among non-blacks MDRD (S/P/Bld) [Vol rate/Area] 96 mL/min/{1.73_m2} >60 [facility] Comment on above: mL/min/1.73m2 CKD-EP I Creatinine Equation (2020) HIVon 03-22-2025 HIV Non-Reactive Normal Nonreactive [facility] Comment on above: Result Comment: Non- Reactive Reactive Repeatedly reactive samples must be confirmed according to CDC recommended confirmatory algorithms. The subresults for either HIVAG or AHIV can be used as an aid in the selection of the confirmation algorithm for reactive samples. Send out specimens with Reactive results to [facility] for confirmation. Order the HIV antibody detection and differentiation: [id number] Performed By: #### L 900.0098, BTS, L3890.6301, L509.8002, L509.4006, L501.9985, L3890.6102, L500.4050, L3890.6006, L100.0100 #### [facility] [address] [place], [place], [id number] [phone] Hematocrit Auto (Bld) [Volum e fraction]Ordered By: Comfort Agee on 03-22-2025 Hematocrit (Bld) [Volume fraction] 36.6 % Low 37-47 [facility] Hemoglobin A1con 03-22-2025 HbA1c (Bld) [Mass fraction] 5.2 % Normal <=5.6 [facility] Comment on above: Result Comment: Norm al < 5.7 % Prediabetic 5.7 - 6.4 % Diabetic >or= 6.5 % Please note range changes. Performed By: #### L 900.0098, BTS, L3890.6301, L509.8002, L509.4006, L501.9985, L3890.6102, L500.4050, L3890.6006, L100.0100 #### [facility] [address] [place], [place], [id number] (664) Hemoglobin A1c percentageOrd ered By: Comfort Agee on 03-22-2025 HbA1c (Bld) [Mass fraction] 5.2 % <5.7 [facility] Comment on above: Normal < 5.7 % Predi abetic 5.7 - 6.4 % Diabetic >or= 6.5 % Please note range changes. Hemoglobin measurementOrdere d By: Comfort Agee on 03-22-2025 Hemoglobin (Bld) [Mass/Vol] 13.1 g/dL 12.0-15.0 [facility] Hepatitis C Antibodyon 03-22 Hepatitis C Ab Non-Reactive Normal Nonreactive [facility] Comment on above: Result Comment: Reac tive: Presumptive evidence of antibodies to HCV. Follow CDC recommendations for supplemental testing. Non-Reactive: Antibodies to HCV were not detected; does not exclude the possibility of exposure to HCV Reactive Results are presumptive evidence of antibodies to HCV. Follow CDC recommendations for supplemental testing. Order confirmation testing: HCV Quant by PCR testing - HCVPCR #[id number] Non Reactive: < 0.8 Equivocal: >/= 0.8 to < 1.0 Reactive: >/= 1.0 The CDC requires that a reactive/equivocal HCV antibody result be sent out for confirmation. HCV Quant by PCR testing. Performed By: #### L 900.0098, BTS, L3890.6301, L509.8002, L509.4006, L501.9985, L3890.6102, L500.4050, L3890.6006, L100.0100 #### [facility] [address] [place], [place], [phone] Immature granulocytes/100 WB C Auto (Bld)Ordered By: Comfort Agee on 03-22-2025 Immature granulocytes/100 WBC (Bld) 0.100 % 0.0-0.9 [facility] Comment on above: IG% - Immature Granu locytes (promyelocytes, myelocytes and metamyelocytes) > 1% indicates that a LEFT SHIFT is Present. L3890.6102on 03-22-2025 HEP B Surf Ag Non-Reactive Normal Nonreactive [facility] Comment on above: Result Comment: Reac tive: Presumptive evidence of HBV. Repeatedly reactive samples must be confirmed using a neutralization test ([employer] HBsAg Confirmatory Test) Non-Reactive: HBsAg not detected; does not exclude the possibility of exposure to HBV Performed By: #### L 900.0098, BTS, L3890.6301, L509.8002, L509.4006, L501.9985, L3890.6102, L500.4050, L3890.6006, L100.0100 #### [facility] [address] [facility] [place], [place], [id number] L509.4006on 03-22-2025 Rubella IgG REAC Normal Nonreactive [facility] Comment on above: Result Comment: Anti body Result: Interpretation Non-Reactive: Non-Immune Reactive: Immune The following results were obtained with the [employer] Rubella IgG assay. Results from assays of other manufacturers cannot be used interchangeably. Performed By: #### L 900.0098, BTS, L3890.6301, L509.8002, L509.4006, L501.9985, L3890.6102, L500.4050, L3890.6006, L100.0100 #### [facility] [address] [place], [address] Laboratory - Chemistry and C hemistry - challengeOrdered By: Comfort Agee on 03-22-2025 AST [Catalytic activity/Vol] 19 U/L <32 [facility] - Chemistry and C hemistry - challengeOrdered By: Mignon Robins on 03-22-2025 Glucose Ql (U) Negative [facility] - Microbiology an d Antimicrobial susceptibilityOrdered By: Comfort Agee on 03-22-2025 HBV surface Ag Ql (S) Non-Reactive Nonreactive [facility] Comment on above: Reactive: Presumptiv e evidence of HBV. Repeatedly reactive samples must be confirmed using a neutralization test ([employer] HBsAg Confirmatory Test)Non-Reactive: HBsAg not detected; does not exclude the possibility of exposure to HBV Laboratory - UrinalysisOrder ed By: Mignon Robins on 03-22-2025 Protein Ql (U) Negative [facility] MCV (mean corpuscular volume ) determinationOrdered By: Comfort Agee on 03-22-2025 MCV (RBC) [Entitic vol] 89.5 fL 81-99 [facility] Mean corpuscular hemoglobin (MCH) determinationOrdered By: Comfort Agee on 03-22-2025 MCH (RBC) [Entitic mass] 32.0 pg 27.0-32.0 [facility] Mean corpuscular hemoglobin concentration (MCHC) determinationOrdered By: Comfort Agee on 03-22-2025 MCHC (RBC) [Mass/Vol] 35.8 g/dL 32-36 [facility] Mean platelet volume determi nationOrdered By: Comfort Agee on 03-22-2025 Platelet mean volume (Bld) [Entitic vol] 10.7 fL 6.2-12.0 [facility] Monocyte percentageOrdered B y: Comfort Agee on 03-22-2025 Monocytes/100 WBC (Bld) 5.1 % 0-10 [facility] NATERAon 03-22-2025 NATURA SEE SCANNED REPORT Normal [facility] Comment on above: Order Comment: Comme nts: NIPT with gender, undecided about carrier Performed By: #### L 900.0098, BTS, L3890.6301, L509.8002, L509.4006, L501.9985, L3890.6102, L500.4050, L3890.6006, L100.0100 #### [facility] [address] [place], [place], [id number] Neutrophil percentageOrdered By: Comfort Agee on 03-22-2025 Neutrophils/100 WBC (Bld) 59.1 % 47-70 [facility] No Panel InformationOrdered By: Comfort rBownjanice on 03-22-2025 HIV (1&2) Antibody Non-Reactive Nonreactive [facility] Comment on above: Non-ReactiveReactive Repeatedly reactive samples must be confirmed according to CDC recommended confirmatory algorithms. The subresults for either HIVAG or AHIV can be used as an aid in the selection of the confirmation algorithm for reactive samples.Send out specimens with Reactive results to [facility] for confirmation.Order the HIV antibody detection and differentiation: #[id number] Nucleated red blood cell per centageOrdered By: Comfort Sweta on 03-22-2025 Nucleated RBC/100 WBC (Bld) [Ratio] 0 % 0-5 [facility] Hand Miter Operator Office Visit Reporton 03-22-2025 Hand Miter Operator Office Visit Report [facility]'[address], [address] [place] [address] OFFICE VISIT Date of Service: 03/22/25 MR#: [id number] Acct: [id number] Name: CHERYL WOOD Rep #: [id number] : 1990 Provider: Dr. Mignon Holman, DO Age/Sex: 34/F [place] [facility] [place] Signed with Addenda ADDENDUM by Nidia Ordaz on 03/22/25 at 1533 Office Procedure Documentation entered by Nidia Ordaz 03/22/25 15:33: Injections Is this a patient provided medication?: No Office Meds RhoGAM Ultra-Filtered PLUS 1,500 unit (300 mcg) intramuscular syringe Performing Provider: Mignon [place] DO Performing Location: [facility] Administered by: Nidia Ordaz on 03/22/25 15:31 Dose Route Admin Location Dispensed Lot Number Expiration Date Package NDC NDC It Network Engineer 1,500 unit IM Left Gluteal 1 ea [id number] 11/29/26 89982-149-99 [id number] [facility] Date cc: * Signed ADDENDUM by Dr. [...] mental status grossly normal 03/22/25 1531 Date Mignon [place] DO cc: * Signed Intake Vital Signs 03/07/25 16:01 03/22/25 14:43 Height 5 ft 9 in 5 ft 9 in Weight: 301 lb BMI 44.4 BP 124/79 H Intake Visit Reasons: [id number] ob *per Jackspooler Required: No Is patient in pain?: No [...] History o (more content not included)... Normal [facility] Platelet countOrdered By: Teresa Agee on 03-22-2025 Platelets (Bld) [#/Vol] 280 10*3/uL 150-450 [facility] Potassium measurement (mass/ volume)Ordered By: Comfort Agee on 03-22-2025 Potassium (Unsp spec) [Mass/Vol] 3.8 mmol/L 3.3-5.1 [facility] RBC Auto (Bld) [#/Vol]Ordere d By: Comfort Agee on 03-22-2025 RBC (Bld) [#/Vol] 4.09 10*6/uL Low 4.2-5.4 [facility] Serum creatinine measurement (mass/volume)Ordered By: Comfort Agee on 03-22-2025 Creatinine [Mass/Vol] 0.82 mg/dL 0.70-1.20 [facility] Serum globulin measurementOr dered By: Comfort Agee on 03-22-2025 Globulin (S) [Mass/Vol] 2.7 g/dL 2.2-4.2 [facility] Serum glucose measurement (m ass/volume)Ordered By: Comfort Agee on 03-22-2025 Glucose [Mass/Vol] 86 mg/dL 70-99 [facility] Serum or plasma alanine rosado otransferase (ALT) measurementOrdered By: Comfort Agee on 03-22-2025 ALT [Catalytic activity/Vol] 15 U/L <35 [facility] Serum or plasma albumin sameer urement (mass/volume)Ordered By: Comfort Agee on 03-22-2025 Albumin [Mass/Vol] 4.0 g/dL 3.5-5.0 [facility] Serum or plasma albumin/glob ulin mass ratioOrdered By: Comfort Agee on 03-22-2025 Albumin/Globulin [Mass ratio] 1.5 {ratio} 0.9-2.4 [facility] Serum or plasma alkaline jefe sphatase measurementOrdered By: Comfort Agee on 03-22-2025 ALP [Catalytic activity/Vol] 50 U/L 35-104 [facility] Serum or plasma calcium sameer urement (mass/volume)Ordered By: Comfort Agee on 03-22-2025 Calcium [Mass/Vol] 9.3 mg/dL 7.6-11.0 [facility] Serum or plasma urea nitroge n measurement (mass/volume)Ordered By: Comfort Agee on 03-22-2025 Urea nitrogen [Mass/Vol] 12 mg/dL 4-19 [facility] Sodium levelOrdered By: Ketan Agee on 03-22-2025 Sodium [Moles/Vol] 133 mmol/L 133-145 [facility] Syphilis Antibodieson 2024 Syphilis Abs Non-Reactive Normal Nonreactive [facility] Comment on above: Performed By: #### L 900.0098, BTS, L3890.6301, L509.8002, L509.4006, L501.9985, L3890.6102, L500.4050, L3890.6006, L100.0100 #### [facility] [address] [place], [address] Total proteinOrdered By: Cong Agee on 03-22-2025 Protein [Mass/Vol] 6.7 g/dL 5.9-8.4 [facility] Type AND Screenon 03-22-2025 ABO and Rh group Nom (Bld) Blood group A Rh(D) negative Normal [facility] Comment on above: Order Comment: PN Performed By: #### L 900.0098, BTS, L3890.6301, L509.8002, L509.4006, L501.9985, L3890.6102, L500.4050, L3890.6006, L100.0100 #### [facility] [address] [place], [place], [id number] White blood cell (WBC) count Ordered By: Comfort Agee on 03-22-2025 WBC (Bld) [#/Vol] 7.4 10*3/uL 4.4-11.0 [facility] PAP IG HPV APTIMA 16/18,45on 03-10-2025 ADEQ Comment Normal . [facility] Comment on above: Order Comment: NIPT with gender, undecided about carrier Result Comment: Sati sfactory for evaluation. Endocervical and/or squamous metaplastic cells (endocervical component) are present. Performed By: #### L 900.0098, BTS, L3890.6301, L509.8002, L509.4006, L501.9985, L3890.6102, L500.4050, L3890.6006, L100.0100 #### [facility] [address] [place], [place], [id number] COMM . Normal . [facility] Comment on above: Order Comment: NIPT with gender, undecided about carrier Performed By: #### L 900.0098, BTS, L3890.6301, L509.8002, L509.4006, L501.9985, L3890.6102, L500.4050, L3890.6006, L100.0100 #### [facility] [address] [place], [place], [id number] COMMENT Comment Normal . [facility] Comment on above: Order Comment: NIPT with gender, undecided about carrier Result Comment: This liquid based ThinPrep(R) pap test was screened with the use of an image guided system. Performed By: #### L 900.0098, BTS, L3890.6301, L509.8002, L509.4006, L501.9985, L3890.6102, L500.4050, L3890.6006, L100.0100 #### [facility] [address] [place], [place], [id number] DIAG Comment Normal . [facility] Comment on above: Order Comment: NIPT with gender, undecided about carrier Result Comment: NEGA TIVE FOR INTRAEPITHELIAL LESION OR MALIGNANCY. Performed By: #### L 900.0098, BTS, L3890.6301, L509.8002, L509.4006, L501.9985, L3890.6102, L500.4050, L3890.6006, L100.0100 #### [facility] [address] [place], [place], [id number] HPV APTIMA, HR Negative Normal Negative [facility] Comment on above: Order Comment: NIPT with gender, undecided about carrier Result Comment: This nucleic acid amplification test detects fourteen high- risk HPV types (16,18,31,33,35,39,45,51,52,56,58,59,66,68) without differentiation. Performed By: #### L 900.0098, BTS, L3890.6301, L509.8002, L509.4006, L501.9985, L3890.6102, L500.4050, L3890.6006, L100.0100 #### [facility] [address] [place], [place], [id number] HPV Shagufta Rfx Comment Normal . [facility] Comment on above: Order Comment: NIPT with gender, undecided about carrier Result Comment: Crit eria not met, HPV Genotype not performed. Performed at: - [address] [id number] Sybase Developer: Radha Valentino MD, Phone: [phone] Performed at: = - [facility] [id number] Sybase Developer: Radha Valentino MD, Phone: [phone] Performed By: #### L 900.0098, BTS, L3890.6301, L509.8002, L509.4006, L501.9985, L3890.6102, L500.4050, L3890.6006, L100.0100 #### [facility] [address] [place], [address] PAPSMR Comment Normal . [facility] Comment on above: Order Comment: NIPT with gender, undecided about carrier Result Comment: The Pap smear is a screening test designed to aid in the detection of premalignant and malignant conditions of the uterine cervix. It is not a diagnostic procedure and should not be used as the sole means of detecting cervical cancer. Both false-positive and false-negative reports do occur. Performed By: #### L 900.0098, BTS, L3890.6301, L509.8002, L509.4006, L501.9985, L3890.6102, L500.4050, L3890.6006, L100.0100 #### [facility] [address] [place], [address] PERFORM Comment Normal . [facility] Comment on above: Order Comment: NIPT with gender, undecided about carrier Result Comment: Lynn Casanova Data Operations Director (ASCP) Performed By: #### L 900.0098, BTS, L3890.6301, L509.8002, L509.4006, L501.9985, L3890.6102, L500.4050, L3890.6006, L100.0100 #### [facility] [address] [place], [address] Urine Cultureon 03-10-2025 URC Mixed Gram Positive Organisms Hallett Count 25,000-50,000 MIXC Mixed contaminants. Submit a new specimen if indicated. Normal [facility] Comment on above: Performed By: #### L 900.0098, BTS, L3890.6301, L509.8002, L509.4006, L501.9985, L3890.6102, L500.4050, L3890.6006, L100.0100 #### [facility] [address] [place], [place], [id number] [phone]) Chlamydia/GC PHUONG aptimaon CHLAMY,NUC ACID Negative Normal Negative [facility] Comment on above: Performed By: #### L 900.0098, BTS, L3890.6301, L509.8002, L509.4006, L501.9985, L3890.6102, L500.4050, L3890.6006, L100.0100 #### [facility] [address] [place], [place], [phone] GC BY NUC ACID Negative Normal Negative [facility] Comment on above: Result Comment: Perf ormed at: =[address] [id number] Sybase Developer: Radha Valentino MD, Phone: [phone] Performed By: #### L 900.0098, BTS, L3890.6301, L509.8002, L509.4006, L501.9985, L3890.6102, L500.4050, L3890.6006, L100.0100 #### [facility] [address] [place], [place], [phone] Cervical or vaginal specimen microscopic examination by liquid based cytology (reportOrdered By: Comfort Agee on 03-07-2025 Cytology report Cyto stain.thin prep Doc (Cvx/Vag) Comment . [facility] Comment on above: Criteria not met, HP V Genotype not performed.Performed at: [address] [id number] Director: Radha Valentino MD, Phone: [phone] at: =[address] [id number] Director: Radha Valentino MD, Phone: [phone] Cervical or vagninal specime n microscopic examination by cytology stain (reported asOrdered By: Comfort Agee on 03-07-2025 Cytology report Cyto stain Doc (Cvx/Vag) Comment . [facility] Comment on above: The Pap smear is [...] rRNA PHUONG+probe Ql (Unsp spec) Negative Negative [facility] Detection in cervical specim en of any of human papilloma virus (HPV) 16, 18, 31, 33,Ordered By: Comfort Agee on 03-07-2025 HPV 16+18+31+33+35+39+45+51+ 52+56+58+59+66+68 DNA Probe+sig amp Ql (Cvx) Negative Negative [facility] Comment on above: This nucleic acid am plification test detects fourteen high-risk HPV types (16,18,31,33,35,39,45,51,52,56,58,59,66,68)without differentiation. Laboratory - CytologyOrdered By: Comfort Agee on 03-07-2025 Data Operations Director Cyto stain Nom (Cvx/Vag) [ID] Comment . [facility] Comment on above: Jane Casanova Cyto logist (ASCP) Laboratory - Miscellaneous t estsOrdered By: Comfort Agee on 03-07-2025 Service comment (Unsp spec) [Interp] . . [facility] Neisseria gonorrhoeae nuclei c acid detection by amplified probe techniqueOrdered By: Comfort Agee on 03-07-2025 N. gonorrhoeae DNA PHUONG+probe Ql (Unsp spec) Negative Negative [facility] Comment on above: Performed at: =[address] [id number] Director: Radha Valentino MD, Phone: [phone] No Panel InformationOrdered By: Comfort Agee on 03-07-2025 Pap Smear Specimen Adequacy Comment . [facility] Comment on above: Satisfactory for tano luation. Endocervical and/or squamous metaplasticcells (endocervical component) are present. Hand Miter Operator Office Visit Reporton 03-07-2025 Hand Miter Operator Office Visit Report [facility] [address], [address] [place] [address] OFFICE VISIT Date of Service: 03/07/25 MR#: [id number] Acct: [id number] Name: CHERYL WOOD Rep #: [id number] : 1990 Provider: Dr. Comfort jc MD Age/Sex: 34/F [place] [facility] [place]: Signed Intake Vital Signs 03/04/25 16:28 03/07/25 15:56 03/07/25 16:01 Height 5 ft 9 in 5 ft 9 in 5 ft 9 in Weight: 296 lb 1 oz BMI 43.7 BP 136/88 H Intake Visit Reasons: NOB LMP 7/3 LEIDY 4/9 *Per Jackspooler Required: No Is patient in pain?: No [...] Period: 12/29/24 Zika: Zika virus screening: Negative [facility] Medical History (Updated 03/07/25 @ 16:31 by [...] No current occupational status: employed current occupation: [employer] current occupational exposures/hazards: No pets and animals: [...] physical activity do you participate in: none tamir/temple: None seatbelt use: always do you feel safe at home: Yes additional social history: [employer] work History 3 Elective abortions Hx Para 2 Spontaneous abortions Hx # Term Pregnancies Ectopic pregnancies Hx # Pregnancies Multiple births # of living children 2 Past Pregnancies Del. Date Name GA/Weeks Outcome Route Bth Weight Gen Labor Lgth Anesthesia Del Locatn Provider FOB 12/18/15 Adalynn 40 live - full term 8#9oz Female epidural [facility] Sealanel Walls 12/30/17 Nadine 27 live - 2#1oz [facility]: 06/15/15 Last Updated by: [...] Problem l (more content not included)... Normal [facility] Protein+Creatinine Ratio,Uri neon 03-07-2025 PROT:CRE RATIO 40 mg/g CRE Normal 0-200 [facility] Comment on above: Performed By: #### L 900.0098, BTS, L3890.6301, L509.8002, L509.4006, L501.9985, L3890.6102, L500.4050, L3890.6006, L100.0100 #### [facility] [address] [place], [place], [id number] UR CREAT 250.00 mg/dL High 28.00-217.00 [facility] Comment on above: Performed By: #### L 900.0098, BTS, L3890.6301, L509.8002, L509.4006, L501.9985, L3890.6102, L500.4050, L3890.6006, L100.0100 #### [facility] [address] [place], [address] Random urine creatinine sameer urement (mass/volume)Ordered By: Comfort Agee on 03-07-2025 Creatinine Unsp time (U) [Mass/Vol] 250.00 mg/dL High 28.00-217.00 [facility] Urine cultureOrdered By: Cong Agee on 03-07-2025 Bacteria identified Cx Nom (U) Positive Abnormal [facility] Urine protein measurement (m ass/volume)Ordered By: Comfort Agee on 03-07-2025 Protein (U) [Mass/Vol] 10.0 mg/dL Normal 0.0-12.0 [facility] Comment on above: Performed By: #### L 900.0098, BTS, L3890.6301, L509.8002, L509.4006, L501.9985, L3890.6102, L500.4050, L3890.6006, L100.0100 #### [facility] [address] [facility] [place], [address] Urine protein/creatinine mas s ratioOrdered By: Comfort Agee on 03-07-2025 Protein/Creatinine (U) [Mass ratio] 40 mg/g CRE 0-200 [facility] Emergency Department Summary on 03-04-2025 Emergency Department Summary [facility] Medical Records Department [address] [place] [address] Emergency Department Summary 03/04/25 MR#: [id number] Acct: [id number] Name: CHERYL WOOD Rep #: [id number] : 1990 34 From: Tremayne Brice DO PCP: Care Physician,No Primary Status:REG ER Location: ED HPI HPI - Female History of Present Illness Chief Complaint: Narrative Narrative: Chief complaint and HPI: 34-year-old female who is G3, P2 and 8.5 weeks presents for [facility] evaluation. Patient states her previous pregnancies were . Last she followed with maternal- medicine given she had placenta previa with abruption and premature delivery. She states she has yet to follow-up with an ASSISTANT FLOOR COVERING PRINTER. States she called on Thursday to be established with [facility]. Patient states that she has had a ultrasound at the care center which showed a subchorionic hematoma. She states on she had intercourse in which she had some light vaginal bleeding which has since resolved. She followed up with the care center who told her it was likely secondary to the subchorionic hematoma and to be established with an ASSISTANT FLOOR COVERING PRINTER. Patient states she was thinking about it [...] Psych: Cooperative, appropriate mood and affect [facility] Medical History Fatigue delivery delivered Home Medications [...] she has yet to follow-up with an ASSISTANT FLOOR COVERING PRINTER. States she called on Thursday to be established with [facility]. Patient states that she has had a ultrasound at the care center which showed a subchorionic hematoma. She states on she had intercourse in which she had some light vaginal bleeding which has since resolved. She followed up with the care center who told her it was likely secondary to the subchorionic hematoma and to be established with an ASSISTANT FLOOR COVERING PRINTER. Patient states she was thinking about it today and realize she has Rh- and presented for possible RhoGAM injection. She currently denies any symptoms such as vaginal bleeding or pelvic pain. On presentation, becky (more content not included)... Normal [facility] Emergency Department Summary on 09-21-2024 Emergency Department Summary [facility] Medical Records Department [address] [place] [address] Emergency Department Summary 09/21/24 MR#: [id number] Acct: [id number] Name: CHERYL WOOD Omid Rep #: [id number] : 1990 34 From: Abhi Cooper DO [...] when her last tetanus shot was. [facility] Medical History Fatigue delivery delivered Home Medications [...] stable co (more content not included)... Normal [facility] 37on 04-29-2024 37 Pick 2-4 of [...] difficult as her core strength increases. Normal [facility] Office Visiton 04-29-2024 Follow-up visit [id number] Cheryl Wood 1990 F Date Provider Department Center 04/29/2024 [id number] IZQUIERDO MG SM WAD None Family History Problem Relation Age of Onset No Known Problems Mother Comments: (BULLET LUBRICATING MACHINE OPERATOR at [employer]) Heart disease Father COPD Father Comments: [...] Paternal Grandmother Paternal Grandfather Alive Level of Service:65308 CT OFFICE/OUTPATIENT NEW LOW MDM 30 MINUTES Reason for Visit and Comments: New Patient [542] Hip Pain [554315] - Left Normal [facility] Progress Noteon 04-29-2024 Progress Note [facility] - [place] [address] [place] [address] [place] [address] Dept: [phone] Dept Chief Complaint Patient presents with New Patient Hip Pain Left Subjective History of Present Illness: Cheryl Wood is a 33 y.o. female who presents today for evaluation of left hip pain. 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 Normal [facility] 37on 04-22-2024 37 [facility] at [address] [place] [address] Call central scheduling to schedule new patient appointment [phone] Normal [facility] Office Visiton 04-22-2024 Follow-up visit [id number] Cheryl Wood 1990 F Date Provider Department Center 04/22/2024 [id number] [facility] OR None Family History Problem Relation Age of Onset No Known Problems Mother Comments: (BULLET LUBRICATING MACHINE OPERATOR at [employer]) Heart disease Father COPD Father Comments: [...] Paternal Grandmother Paternal Grandfather Alive Level of Service:04858 CT OFFICE/OUTPATIENT NEW MODERATE MDM 45 MINUTES Reason for Visit and Comments: Back 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 Lumbar Pain Normal [facility] Progress Noteon 04-22-2024 Progress Note [facility] [place] [facility] [address] [place] [id number] Dept: [phone] Dept Cheryl Wood 1990 [id number] 04/22/2024 Problem List: Lumbar pain Lumbar radiculopathy, left Lumbar spondylosis Lumbar degenerative disc disease Left hip pain (M54.50) Lumbar pain (M54.16) Lumbar radiculopathy (M47.816) Lumbar spondylosis (M51.362) Degeneration of intervertebral disc of lumbar region with discogenic back pain and lower extremity pain (M25.552) Left hip pain Chief Complaint Patient presents with 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 female who is here today for evaluation of her lumbar spine. Cheryl is referred by Gissel Hernadnez PA-C Current symptoms: Pain is located in the left lumbar area, left gluteal area, or across the lower back that is radiating Posterior, to gastroc . 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 Normal [facility] XR LUMBAR SPINE 4-5 VIEWon 1 [...] no listhesis noted on flexion/extension radiographs. Normal [facility] ED Nursing Noteon 04-16-2024 ED Nursing Note Clarified with Gissel LUNDBERG that 60mg toradol to be given and dosage was verified Laura Mack RN 04/16/24 1810 Normal [facility] ED Nursing Note Pt c.o lower back pain radiating down L leg, states the pain worsened when she opened a door today Normal [facility] ED Provider Noteon ED Provider Note [facility] ED eMERGENCY dEPARTMENT eNCOUnter Pt Name: [...] retention. No saddle paresthesias. She tried some bbnh-kxe-hokemfy medications with no relief of her symptoms. 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 Overall Financial Resource Strain (CARDIA) Difficulty of Paying Living Expenses: Not hard at all Food Insecurity: No Food Insecurity (03/21/2022) [facility] Hunger Vital Sign Worried About Running Out of Food in the Last Year: Never true Ran Out of Food in the Last Year: Never true Transportation Needs: N (more content not included)... Normal [facility] Basophil percentageOrdered B y: Herberth Steele on 06-26-2023 Chloride [Moles/Vol] 108 mmol/L 98-107 [facility] Glucose [Mass/Vol] 88 mg/dL 74-106 [facility] Potassium [Moles/Vol] 3.8 mmol/L 3.5-5.1 [facility] Sodium [Moles/Vol] 136 mmol/L 136-145 [facility] Laboratory - Chemistry and C hemistry - challengeOrdered By: Herberth Steele on 06-26-2023 CO2 [Moles/Vol] 23.0 mmol/L 21.0-32.0 [facility] Urea nitrogen/Creatinine [Mass ratio] 14.4 mg/mg 10-20 [facility] No Panel InformationOrdered By: Herberth Steele on 06-26-2023 Estimated GFR (MDRD) Amer 84 mL/min >60 [facility] Comment on above: GFR Calc Estimated GFR (MDRD) Non-Af Amer 70 mL/min >60 [facility] Comment on above: Non- GFR Calc Serum or plasma calcium sameer urement (mass/volume)Ordered By: Herberth Steele on 06-26-2023 Calcium [Mass/Vol] 9.0 mg/dL 8.5-10.1 [facility] Serum or plasma creatinine m easurement (mass/volume)Ordered By: Herberth Steele on 06-26-2023 Creatinine [Mass/Vol] 0.97 mg/dL 0.55-1.02 [facility] Comment on above: The validity of the calculated GFR & GFRAA in patients over 70 years has not been determined. Clinical correlation is essential. Serum or plasma urea nitroge n measurement (mass/volume)Ordered By: Herberth Steele on 06-26-2023 Urea nitrogen [Mass/Vol] 14 mg/dL 7-18 [facility] Thin prep Papanicolaou smear with manual screeningOrdered By: Herberth Steele on 06-26-2023 Thin prep Papanicolaou smear with manual screening 5 5-15 [facility] Basophil percentageOrdered B y: Herberth Steele on 03-27-2023 Creatinine [Mass/Vol] 1.2 mg/dL 0.55-1.02 [facility] Laboratory - Chemistry and C hemistry - challengeOrdered By: Herberth Steele on 03-27-2023 GFR/1.73 sq M.predicted among non-blacks MDRD (S/P/Bld) [Vol rate/Area] 57.0000 mL/min/{1.73_m2} >60 [facility] Basophil percentageOrdered B y: Herberth Steele on 02-27-2023 Bilirubin [Mass/Vol] 0.70 mg/dL 0.20-1.00 [facility] Comment on above: For patients on eltr ombopag therapy, use of Dimension [place] TBIL is not recommended. Chloride [Moles/Vol] 105 mmol/L 98-107 [facility] Glucose [Mass/Vol] 101 mg/dL 74-106 [facility] Comment on above: Fasting Glucose resu lt from 100 to 125 mg/dL suggests IMPAIRED HOMEOSTASIS per A.D.A. criteria. Potassium [Moles/Vol] 4.1 mmol/L 3.5-5.1 [facility] Protein [Mass/Vol] 7.4 g/dL 6.4-8.2 [facility] Sodium [Moles/Vol] 136 mmol/L 136-145 [facility] WBC (Bld) [#/Vol] 7.7 10*3/uL 4.4-11.0 [facility] Blood erythrocytes count (nu mber/volume)Ordered By: Herberth Steele on 02-27-2023 RBC (Bld) [#/Vol] 4.70 10*6/uL 4.2-5.4 [facility] Blood hemoglobin measurement (mass/volume)Ordered By: Herberth Steele on 02-27-2023 Hemoglobin (Bld) [Mass/Vol] 15.0 g/dL 12.0-15.0 [facility] Blood platelet mean volumeOr dered By: Herberth Steele on 02-27-2023 Platelet mean volume (Bld) [Entitic vol] 10.3 fL 6.2-12.0 [facility] Determination of erythrocyte mean corpuscular volume (MCV)Ordered By: Herberth Steele on 02-27-2023 MCV (RBC) [Entitic vol] 92.3 fL 81-99 [facility] Hematocrit Auto (Bld) [Volum e fraction]Ordered By: Herberth Steele on 02-27-2023 Hematocrit (Bld) [Volume fraction] 43.4 % 37-47 [facility] Laboratory - Chemistry and C hemistry - challengeOrdered By: Herberth Steele on 02-27-2023 ALP [Catalytic activity/Vol] 78 U/L 45-117 [facility] ALT [Catalytic activity/Vol] 24 U/L 13-56 [facility] CO2 [Moles/Vol] 23.0 mmol/L 21.0-32.0 [facility] Cobalamin (Vitamin B12) [Mass/Vol] 243 pg/mL 211-911 [facility] Globulin (S) [Mass/Vol] 3.7 g/dL 2.2-4.2 [facility] Urea nitrogen/Creatinine [Mass ratio] 14.2 mg/mg 10-20 [facility] Laboratory - Hematology and Cell countsOrdered By: Herberth Steele on 02-27-2023 Erythrocyte distribution width (RBC) [Entitic vol] 38.7 fL 35.1-43.9 [facility] Erythrocyte distribution width (RBC) [Ratio] 11.3 % 11.6-14.6 [facility] MCH (RBC) [Entitic mass] 31.9 pg 27.0-32.0 [facility] MCHC Auto (RBC) [Mass/Vol]Or dered By: Herberth Steele on 02-27-2023 MCHC (RBC) [Mass/Vol] 34.6 g/dL 32-36 [facility] No Panel InformationOrdered By: Herberth Steele on 02-27-2023 Estimated GFR (MDRD) Amer 71 mL/min >60 [facility] Comment on above: GFR Calc Estimated GFR (MDRD) Non-Af Amer 59 mL/min >60 [facility] Comment on above: Non- GFR Calc Free Lambda Light Chains, Quant Not Reportable [facility] Thyroid Stimulating Hormone (TSH) 1.32 uIU/mL 0.358-3.74 [facility] Whole Blood Vitamin B1 Level 111.8 nmol/L 66.5-200.0 [facility] Comment on above: Performed at: [address] [id number] Director: Jacy Cook MD, Phone: [phone] Platelets bldOrdered By: Maxi Steele on 02-27-2023 Platelets (Bld) [#/Vol] 310 10*3/uL 150-450 [facility] Serum immunoglobulin kappa l ight chains/immunoglobulin lambda light chains mass ratioOrdered By: [facility]-27-2023 Immunoglobulin light chains.kappa/Immunoglobu arslan light chains.lambda (S) [Mass ratio] Not Reportable [facility] Serum or plasma albumin sameer urement (mass/volume)Ordered By: [facility] on 02-27-2023 Albumin [Mass/Vol] 3.7 g/dL 3.2-5.0 [facility] Serum or plasma albumin/glob ulin mass ratioOrdered By: [facility] on 02-27-2023 Albumin/Globulin [Mass ratio] 1.0 {ratio} 0.9-2.4 [facility] Serum or plasma calcium sameer urement (mass/volume)Ordered By: [facility] on 02-27-2023 Calcium [Mass/Vol] 8.9 mg/dL 8.5-10.1 [facility] Serum or plasma creatinine m easurement (mass/volume)Ordered By: [facility] on 02-27-2023 Creatinine [Mass/Vol] 1.13 mg/dL 0.55-1.02 [facility] Comment on above: The validity of the calculated GFR & GFRAA in patients over 70 years has not been determined. Clinical correlation is essential. Serum or plasma folate measu rement (mass/volume)Ordered By: Herberth [facility] on 02-27-2023 Folate [Mass/Vol] 20.90 ng/mL 3.1-55.4 [facility] Serum or plasma immunoglobul in kappa light chains measurement (mass/volume)Ordered By: [facility] 02-27-2023 Immunoglobulin light chains.kappa [Mass/Vol] See comment [facility] Comment on above: TEST RESULTS LIMITSF ree K+L Lt Chains,Qn,SFree [place] Lt Chains,S 15.4 mg/L 3.3-19.4Free Lambda Lt Chains,S 15.9 mg/L 5.7-26.3Kappa/Lambda Ratio,S 0.97 0.26-1.65 [facility] ORIGINAL REPORT ON FILE IN LAB CONTAINS ADDITIONAL TEST SITE INFORMATION. Serum or plasma urea nitroge n measurement (mass/volume)Ordered By: Herberth Steele on 02-27-2023 Urea nitrogen [Mass/Vol] 16 mg/dL 7-18 [facility] Thin prep Papanicolaou smear with manual screeningOrdered By: Herberth Steele on 02-27-2023 Thin prep Papanicolaou smear with manual screening 17 U/L 15-37 [facility] Thin prep Papanicolaou smear with manual screening 8 5-15 [facility] Comprehensive metabolic 1998 panelon 08-02-2022 Albumin [Mass/Vol] 4.4 g/dL 3.6 - 5.1 g/dL [facility] ALP [Catalytic activity/Vol] 73 U/L 31 - 125 U/L [facility] ALT [Catalytic activity/Vol] 15 U/L 6 - 29 U/L [facility] Anion gap [Moles/Vol] 6 mmol/L Low [facility] AST [Catalytic activity/Vol] 19 U/L 10 - 30 U/L [facility] Bilirubin [Mass/Vol] 0.6 mg/dL 0.2 - 1 .2 mg/dL [facility] Calcium [Mass/Vol] 9.5 mg/dL 8.6 - 10. 2 mg/dL [facility] Chloride [Moles/Vol] 101 mmol/L 98 - 11 0 mmol/L [facility] CO2 [Moles/Vol] 28 mmol/L 20 - 32 mmol/L [facility] Creatinine [Mass/Vol] 1.11 mg/dL High 0.50 - 0.97 mg/dL [facility] GFR/1.73 sq M.predicted among non-blacks MDRD (S/P/Bld) [Vol rate/Area] 67 mL/min/{1.73_m2} > OR = 60 mL/min/1.73m2 [facility] Comment on above: The eGFR is based on the CKD-EPI 2020 equation. To calculate the new eGFR from a previous Creatinine or Cystatin C result, go to https://www.kidney.org/professionals/ kdoqi/gfr%5Fcalculator Glucose [Mass/Vol] 92 mg/dL 65 - 99 mg/dL [facility] Comment on above: Fasting reference interval Interpretation and review of laboratory results Abnormal [facility] Potassium [Moles/Vol] 4.9 mmol/L 3.5 - 5.3 mmol/L [facility] Protein [Mass/Vol] 7.3 g/dL 6.1 - 8.1 g/dL [facility] Sodium [Moles/Vol] 135 mmol/L 135 - 146 mmol/L [facility] Urea nitrogen [Mass/Vol] 18 mg/dL 7 - 25 mg/d L [facility] Hemoglobin A1con 08-02-2022 HbA1c (Bld) [Mass fraction] 4.9 % [facility] Comment on above: For the purpose of s creening for the presence of diabetes: <5.7% Consistent with the absence of diabetes 5.7-6.4% Consistent with increased risk for diabetes (prediabetes) > or =6.5% Consistent with diabetes This assay result is consistent with a decreased risk of diabetes. Currently, no consensus exists regarding use of hemoglobin A1c for diagnosis of diabetes in children. According to [place] Diabetes Association (ADA) guidelines, hemoglobin A1c <7.0% represents optimal control in non- diabetic patients. Different metrics may apply to specific patient populations. Standards of Medical Care in Diabetes(ADA). No Panel Informationon 08-02 [facility] Complete PFT pre and post br onchodilatorOrdered By: Nelson Machado on 06-27-2022 [facility] CR Chest PA/LATon 03-21-2022 CR Chest PA/LAT Patient Name: CHERYL WOOD Diagnostic Radiology ACCESSION EXAM DATE/TIME PROCEDURE ORDERING PROVIDER [id number] 03/21/2022 15:22 EDT CR Chest PA and LAT DO FISCHER EUGENE F. CPT code 15885 Reason For Exam (CR Chest PA and [...] Transcribed Date and Time: 03/22/2022 9:17 Normal [facility] HCG,Urine Qualon 06-03-2021 Beta HCG ( test) Ql (U) Negative Normal Negative [facility] Comment on above: Result Comment: Plea se note: Very dilute urine specimens, as indicated by a low specific gravity, may not contain associate financial representative levels of hCG. If is still suspected, a first morning urine specimen should be collected 48 hours later and tested. is the most common reason for HCG in urine, although choriocarcinoma, hydatidiform mole, and certain nontropho- blastic malignancies also result in detectable urinary HCG levels. Sensitivity = 20mIU/mL. Performed By: #### H CGUR #### [facility] [address] [place] [address] Basic Metabolic Panelon 12-0 -2020 Anion gap [Moles/Vol] 9 mmol/L Normal 3-13 [facility] Comment on above: Performed By: #### H GHCT BMP3M #### [facility] [address] [place] [address] Calcium [Mass/Vol] 9.1 mg/dL Normal 8.4-10.4 [facility] Comment on above: Performed By: #### H GHCT, BMP3M #### [facility] [address] [place] [address] CO2 [Moles/Vol] 24 mmol/L Normal 22-30 [facility] Comment on above: Performed By: #### H GHCT, BMP3M #### [facility] [address] [place] [address] Glucose [Mass/Vol] 95 mg/dL Normal 70-100 [facility] Comment on above: Performed By: #### H GHCT, BMP3M #### [facility] [address] [place], [place] Urea nitrogen [Mass/Vol] 20 mg/dL Normal 9-20 [facility] Comment on above: Performed By: #### H JOEL BMP3M #### [facility] [address] [place], [place] Creatinine [Mass/Vol] 0.87 mg/dL Normal 0.52-1.25 [facility] Comment on above: Performed By: #### H J CARLOSCT BMP3M #### [facility] [address] [place], [place] GFR/1.73 sq M.predicted among blacks MDRD (S/P/Bld) [Vol rate/Area] mL/min/{1.73_m2} Normal >60 [facility] Comment on above: Performed By: #### H J CARLOSCT BMP3M #### [place] [address] [address] [place], [place] GFR/1.73 sq M.predicted among non-blacks MDRD (S/P/Bld) [Vol rate/Area] 88.2 mL/min/{1.73_m2} Normal >60 [facility] Comment on above: Result Comment: KDIG O [...] Performed By: #### H GHCT BMP3M #### [place] [address] [place], [place] Potassium [Moles/Vol] 4.5 mmol/L Normal 3.5-5.1 [facility] Comment on above: Performed By: #### H GHCT, BMP3M #### [facility] [address] [place], [place] Sodium [Moles/Vol] 136 mmol/L Normal 135-145 [facility] Comment on above: Performed By: #### H GHCT, BMP3M #### [facility] [address] [place], [place] Chloride [Moles/Vol] 103 mmol/L Normal 98-107 [facility] Comment on above: Performed By: #### H GHCT, BMP3M #### [place] [address] [address] [place], [place] Hemoglobin AND Hematocriton 05-31-2021 Hematocrit (Bld) [Volume fraction] 40.6 % Normal 35.0-47.0 [facility] Comment on above: Performed By: #### H GHCT, BMP3M #### [place] [address] [address] [place], [place] Hemoglobin (Bld) [Mass/Vol] 14.0 g/dL Normal 11.7-16.0 [facility] Comment on above: Performed By: #### H GHCT, BMP3M #### [place] [address] [address] [place], [place] ARTHR/ASP/INJ MAJOR JT/BU RSA RT WO USOrdered By: Pinky Romero on 10-29-2020 [id number] ACCESSION EXAM DATE/TIME PROCEDURE ORDERING PROVIDER [id number] 10/29/2020 13:09 EDT RF Arthrogram Aspir Bhupinder ROMERO MD, PINKY Barrett Jt Right CPT code 93666 [id number] Reason For Exam (RF Arthrogram Aspir Inj [...] joint is intact without evidence of a ak chin joint effusion. Slight downsloping of the distal-lateral [...] Phone: [facility], [facility] Incoming Radiology Results From [facility] - 10/29/2020 2:21 PM EDT Patient Name: CHERYL WOOD Fluoroscopy ACCESSION EXAM DATE/TIME PROCEDURE ORDERING PROVIDER [id number] 10/29/2020 13:09 EDT RF Arthrogram Aspir Inj MD NICK, PINKY Arnold Jt Right CPT code 27852 [id number] Reason For Exam (RF Arthrogram Aspir Inj [...] joint is intact without evidence of a ak chin joint effusion. Slight downsloping of the distal-lateral [...] Romero on 10-29-2020 [facility]: [id number] Imaging ACCESSION EXAM DATE/TIME PROCEDURE ORDERING PROVIDER [id number] 10/29/2020 13:53 EDT MRI Up Ext Joint w/ MD NICK, PINKY Contrast Right CPT code 71121 Reason For Exam (MRI Up Ext Joint [...] joint is intact without evidence of a ak chin joint effusion. Slight downsloping of the distal-lateral [...] Phone: [facility], [facility] Incoming Radiology Results From [facility] - 10/29/2020 2:21 PM EDT Patient Name: CHERYL WOOD Magnetic Resonance Imaging ACCESSION EXAM DATE/TIME PROCEDURE ORDERING PROVIDER [id number] 10/29/2020 13:53 EDT MRI Up Ext Joint gerardo/ MD NICK, [facility] Contrast Right CPT code 66294 Reason For Exam (MRI Up Ext Joint [...] joint is intact without evidence of a ak chin joint effusion. Slight downsloping of the distal-lateral [...] w/ Contrast Right Patient Name: CHERYL WOOD Magnetic Resonance Imaging ACCESSION EXAM DATE/TIME PROCEDURE ORDERING PROVIDER [id number] 10/29/2020 13:53 EDT MRI Up Ext Joint w/ MD NICK, PINKY Contrast Right CPT code 42902 Reason For Exam (MRI Up Ext Joint [...] joint is intact without evidence of a ak chin joint effusion. Slight downsloping of the distal-lateral [...] Transcribed Date and Time: 10/29/2020 2:19 Normal [facility] RF Arthrogram Aspir Inj Arnold Jt Righton 10-29-2020 RF Arthrogram Aspir Inj Arnold Jt Right Patient Name: CHERYL WOOD [facility]#: [id number] Fluoroscopy ACCESSION EXAM DATE/TIME PROCEDURE ORDERING PROVIDER [id number] 10/29/2020 13:09 EDT RF Arthrogram Aspir Bhupinder ROMERO MD, PINKY Arnold Jt Right CPT code 23530 [id number] Reason For Exam (RF Arthrogram Aspir Inj [...] joint is intact without evidence of a ak chin joint effusion. Slight downsloping of the distal-lateral [...] Transcribed Date and Time: 10/29/2020 2:19 Normal [facility] XR Shoulder Right 2 VWon [id number] Radiology ACCESSION EXAM DATE/TIME PROCEDURE ORDERING PROVIDER [id number] 08/09/2020 14:46 EST CR Shoulder 2+ Views MD HUSEYIN, NIURKA Sandoval Right CPT code 74059 Reason For Exam (CR Shoulder 2+ Views [...] Phone: [facility], [facility] Incoming Radiology Results From [facility] - 08/09/2020 2:58 PM EST Patient Name: CHERYL WOOD [facility]#: [id number] Diagnostic Radiology ACCESSION EXAM DATE/TIME PROCEDURE ORDERING PROVIDER [id number] 08/09/2020 14:46 EST CR Shoulder 2+ Views MD HUSEYIN, NIURKA Sandoval Right CPT code 27160 Reason For Exam (CR Shoulder 2+ Views [...] and Time: 08/09/2020 2:58 [facility] Work Phone: [facility] Note on 02-27-2017 [facility] Normal [facility] ([place]) .Urinalysis Microscopic (AO) on 02-26-2017 UA Squam Epithelial None Seen Normal None Seen [facility] ([place]) Comment on above: Performed By: #### U A, UAMICAO, PREGU ####[address] [place], [place] [address] UA WBC None Seen Normal None Seen [facility] ([place]) Comment on above: Performed By: #### U A, UAMICAO, PREGU ####[address] [place], [place] [address] Urine, erythrocytes None Seen Normal None Seen [facility] ([place]) Comment on above: Performed By: #### U A, UAMICAO, PREGU ####[address] [place] [address] PREGUon 02-26-2017 HCG ( test) Ql (U) Negative Normal [facility] ([place]) Comment on above: Performed By: #### U A, UAMICAO, PREGU ####[address] [place] [address] test (u) int HCG not detected. Invalid Interpretation Code [facility] ([place]) Comment on above: Performed By: #### U A, UAMICAO, PREGU ####[address] [place] [address] Patient Summary Documentson 02-26-2017 Patient Summary Documents Normal [facility] ([place]) UAon 02-26-2017 UA Appear CLEAR Normal [facility] ([place]) Comment on above: Performed By: #### U A, UAMICAO, PREGU ####[address] [place] [address] UA Blood Negative [facility] ([place]) Comment on above: Performed By: #### U A, UAMICAO, PREGU ####[address] [place] [address] UA Leuk Est Negative [facility] ([place]) Comment on above: Performed By: #### U A, UAMICAO, PREGU ####[address] [place] [address] UA Nitrite Negative [facility] ([place]) Comment on above: Performed By: #### U A, UAMICAO, PREGU ####[address] [place] [address] UA pH 6.0 [facility] ([place]) Comment on above: Performed By: #### U A, UAMICAO, PREGU ####[address] [place] [address] UA Protein Negative [facility] ([place]) Comment on above: Performed By: #### U A, UAMICAO, PREGU ####[address] [place], [place] [address] UA Spec Grav <=1.005 Abnormal [facility] ([place]) Comment on above: Performed By: #### U A, UAMICAO, PREGU ####[address] [place], [place] [address] UA Specimen Type Clean Catch Normal [facility] ([place]) Comment on above: Performed By: #### U A, UAMICAO, PREGU ####[address] [place], [place] [address] UA Urobilinogen 0.2 E.U./dL Normal [facility] ([place]) Comment on above: Performed By: #### U A, UAMICAO, PREGU ####[address] [place], [place] [address] Urine, color YELLOW Normal [facility] ([place] Comment on above: Performed By: #### U A, UAMICAO, PREGU ####[address] [place], [place] [address] Urine, glucose Negative Normal [facility] ([place]) Comment on above: Performed By: #### U A, UAMICAO, PREGU ####[address] [place], [place] [address] Urine, ketones presence Negative Normal [facility] ([place]) Comment on above: Performed By: #### U A, UAMICAO, PREGU ####[address] [place], [place] [address] Urine, urobilinogen Negative Normal [facility] ([place]) Comment on above: Performed By: #### U A, UAMICAO, PREGU ####[address] [place], [place] [address] Vital Signs Date Time Vital Sign Value Performing Clinician Facility 05-04-2025 14:24-0500 Body height 175.26 cm No Primary Care Physician [facility] 05-04-2025 14:24-0500 Body mass index (BMI) [Ratio] 44.1 kg/m2 No Primary Care Physician [facility] 05-04-2025 14:24-0500 Body weight 135.79 kg No Primary Care Physician [facility] 05-04-2025 14:24-0500 Diastolic blood pressure 87 mm[Hg] No Primary Care Physician [facility] 05-04-2025 14:24-0500 Systolic blood pressure 134 mm[Hg] No Primary Care Physician [facility] 04-26-2025 08:46-0400 Body mass index (BMI) [Ratio] 44.8 kg/m2 No Primary Care Physician [facility] 04-26-2025 08:46-0400 Body weight 137.63 kg No Primary Care Physician [facility] 04-26-2025 08:46-0400 Diastolic blood pressure 78 mm[Hg] No Primary Care Physician [facility] 04-26-2025 08:46-0400 Systolic blood pressure 119 mm[Hg] No Primary Care Physician [facility] 04-15-2025 21:19-0400 Body temperature 97.8 [degF] No Primary Care Physician [facility] 04-15-2025 21:19-0400 Diastolic blood pressure 85 mm[Hg] No Primary Care Physician [facility] 04-15-2025 21:19-0400 Heart rate 88 /min No Primary Care Physician [facility] 04-15-2025 21:19-0400 Respiratory rate 16 /min No Primary Care Physician [facility] 04-15-2025 21:19-0400 SaO2% (BldA) [Mass fraction] 100 % No Primary Care Physician [facility] 04-15-2025 21:19-0400 Systolic blood pressure 159 mm[Hg] No Primary Care Physician [facility] 04-15-2025 18:48-0400 Body height 175.26 cm No Primary Care Physician [facility] 04-15-2025 18:48-0400 Body mass index (BMI) [Ratio] 44.4 kg/m2 No Primary Care Physician [facility] 04-15-2025 18:48-0400 Body weight 136.33 kg No Primary Care Physician [facility] 04-13-2025 15:06-0400 Body mass index (BMI) [Ratio] 44.4 kg/m2 No Primary Care Physician [facility] 04-13-2025 15:06-0400 Body weight 136.53 kg No Primary Care Physician [facility] 04-13-2025 15:06-0400 Diastolic blood pressure 82 mm[Hg] No Primary Care Physician [facility] 04-13-2025 15:06-0400 Systolic blood pressure 132 mm[Hg] No Primary Care Physician [facility] 04-06-2025 13:07-0400 Body height 175.26 cm No Primary Care Physician [facility] 04-06-2025 13:07-0400 Body mass index (BMI) [Ratio] 43.9 kg/m2 No Primary Care Physician [facility] 04-06-2025 13:07-0400 Body weight 134.88 kg No Primary Care Physician [facility] 04-06-2025 13:07-0400 Diastolic blood pressure 82 mm[Hg] No Primary Care Physician [facility] 04-06-2025 13:07-0400 Systolic blood pressure 142 mm[Hg] No Primary Care Physician [facility] 03-22-2025 14:43-0400 Body height 175.26 cm No Primary Care Physician [facility] 03-22-2025 14:43-0400 Body mass index (BMI) [Ratio] 44.4 kg/m2 No Primary Care Physician [facility] 03-22-2025 14:43-0400 Body weight 136.53 kg No Primary Care Physician [facility] 03-22-2025 14:43-0400 Diastolic blood pressure 79 mm[Hg] No Primary Care Physician [facility] 03-22-2025 14:43-0400 Systolic blood pressure 124 mm[Hg] No Primary Care Physician [facility] 03-07-2025 16:01-0400 Body height 175.26 cm No Primary Care Physician [facility] 03-07-2025 15:56-0400 Body mass index (BMI) [Ratio] 43.7 kg/m2 No Primary Care Physician [facility] 03-07-2025 15:56-0400 Body weight 134.29 kg No Primary Care Physician [facility] 03-07-2025 15:56-0400 Diastolic blood pressure 88 mm[Hg] No Primary Care Physician [facility] 03-07-2025 15:56-0400 Systolic blood pressure 136 mm[Hg] No Primary Care Physician [facility] 03-04-2025 18:19-0400 Body temperature 98.7 [degF] No Primary Care Physician [facility] 03-04-2025 18:19-0400 Diastolic blood pressure 93 mm[Hg] No Primary Care Physician [facility] 03-04-2025 18:19-0400 Heart rate 99 /min No Primary Care Physician [facility] 03-04-2025 18:19-0400 Respiratory rate 18 /min No Primary Care Physician [facility] 03-04-2025 18:19-0400 SaO2% (BldA) [Mass fraction] 100 % No Primary Care Physician [facility] 03-04-2025 18:19-0400 Systolic blood pressure 153 mm[Hg] No Primary Care Physician [facility] 03-04-2025 16:28-0400 Body height 175.26 cm No Primary Care Physician [facility] 03-04-2025 16:28-0400 Body mass index (BMI) [Ratio] 44.6 kg/m2 No Primary Care Physician [facility] 03-04-2025 16:28-0400 Body weight 136.98 kg No Primary Care Physician [facility] 10-05-2024 18:09-0400 Body temperature 96.9 [degF] Dr. Abhi Cooper DO Work Phone: [facility] 10-05-2024 18:09-0400 Diastolic blood pressure 78 mm[Hg] Dr. Abhi Cooper DO Work Phone: [facility] 10-05-2024 18:09-0400 Heart rate 68 /min Dr. Abhi Cooper DO Work Phone: [facility] 10-05-2024 18:09-0400 Respiratory rate 13 /min Dr. Abhi Cooper DO Work Phone: [facility] 10-05-2024 18:09-0400 SaO2% (BldA) [Mass fraction] 99 % Dr. Abhi Cooper DO Work Phone: [facility] 10-05-2024 18:09-0400 Systolic blood pressure 142 mm[Hg] Dr. Abhi Cooper DO Work Phone: [facility] 10-05-2024 16:55-0400 Body height 175.[address] Abhi Cooper DO Work Phone: 3(108)348-734922 [place] [address] 10-05-2024 16:55-0400 Body mass index (BMI) [Ratio] 44.6 kg/m2 Dr. Abhi Cooper DO Work Phone: 1(035)508-115822 [place] [address] 10-05-2024 16:55-0400 Body weight 136.[address] Abhi Cooper DO Work Phone: 3(821)080-731022 [place] [address] 09-28-2024 16:43-0400 Body height 175.[address] Abhi Cooper DO Work Phone: 8(252)351-097822 [place] [address] 09-28-2024 16:43-0400 Body mass index (BMI) [Ratio] 43.6 kg/m2 Dr. Abhi Cooper DO Work Phone: 4(281)103-199722 [place] [address] 09-28-2024 16:43-0400 Body temperature 97.2 [degF] Dr. Abhi Cooper DO Work Phone: 2(649)486-259322 [place] [address] 09-28-2024 16:43-0400 Body weight [address] Abhi Cooper DO Work Phone: 4(878)263-558122 [place] [address] 09-28-2024 16:43-0400 Diastolic blood pressure 72 mm[Hg] Dr. Abhi Cooper DO Work Phone: 5(468)707-362722 [place] [address] 09-28-2024 16:43-0400 Heart rate 70 /min Dr. Abhi Cooper DO Work Phone: 2(473)639-078622 [place] [address] 09-28-2024 16:43-0400 Respiratory rate 18 /min Dr. Abhi Cooper DO Work Phone: [facility] 09-28-2024 16:43-0400 SaO2% (BldA) [Mass fraction] 100 % Dr. Abhi Cooper DO Work Phone: [facility] 09-28-2024 16:43-0400 Systolic blood pressure 154 mm[Hg] Dr. Abhi Cooper DO Work Phone: [facility] 09-24-2024 16:50-0400 Body height 175.[address] Abhi Cooper DO Work Phone: 0(219)643-590922 [place] [address] 09-24-2024 16:50-0400 Body mass index (BMI) [Ratio] 43.9 kg/m2 Dr. Abhi Cooper DO Work Phone: 9(308)480-116522 [place] [address] 09-24-2024 16:50-0400 Body temperature 98.2 [degF] Dr. Abhi Cooper DO Work Phone: 0(845)556-157822 [place] [address] 09-24-2024 16:50-0400 Body weight 135.[address] Abhi Cooper DO Work Phone: 6(568)253-270422 [place] [address] 09-24-2024 16:50-0400 Diastolic blood pressure 70 mm[Hg] Dr. Abhi Cooper DO Work Phone: 2(354)973-697522 [place] [address] 09-24-2024 16:50-0400 Heart rate 66 /min Dr. Abhi Cooper DO Work Phone: 8(438)160-915822 [place] [address] 09-24-2024 16:50-0400 Respiratory rate 12 /min Dr. Abhi Cooper DO Work Phone: 7(751)903-629222 [place] [address] 09-24-2024 16:50-0400 SaO2% (BldA) [Mass fraction] 100 % Dr. Abhi Cooper DO Work Phone: 8(696)660-289122 [place] [address] 09-24-2024 16:50-0400 Systolic blood pressure 124 mm[Hg] Dr. Abhi Cooper DO Work Phone: 3(658)510-554522 [place] [address] 09-21-2024 18:33-0400 Body height 175.[address] Abhi Cooper DO Work Phone: 5(951)123-291022 [place] [address] 09-21-2024 18:33-0400 Body mass index (BMI) [Ratio] 43.9 kg/m2 Dr. Abhi Cooper DO Work Phone: 6(911)881-326122 [place] [address] 09-21-2024 18:33-0400 Body temperature 97.6 [degF] Dr. Abhi Cooper DO Work Phone: [facility] 09-21-2024 18:33-0400 Body weight 135.[address] Abhi Cooper DO Work Phone: [facility] 09-21-2024 18:33-0400 Diastolic blood pressure 99 mm[Hg] Dr. Abhi Cooper DO Work Phone: [facility] 09-21-2024 18:33-0400 Heart rate 79 /min Dr. Ahbi Cooper DO Work Phone: [facility] 09-21-2024 18:33-0400 Respiratory rate 15 /min Dr. Abhi Cooper DO Work Phone: [facility] 09-21-2024 18:33-0400 SaO2% (BldA) [Mass fraction] 99 % Dr. Abhi Cooper DO Work Phone: [facility] 09-21-2024 18:33-0400 Systolic blood pressure 134 mm[Hg] Dr. Abhi Cooper DO Work Phone: [facility] 04-29-2024 13:22-0400 Body height 175.3 cm Shay Izquierdo MD Work Phone: [place] 04-29-2024 13:22-0400 Body mass index (BMI) [Ratio] 43.86 kg/m2 Shay Izquierdo MD Work Phone: [place] 04-29-2024 13:22-0400 Body weight 134.72 kg Shay Izquierdo MD Work Phone: [place] 04-29-2024 13:22-0400 Diastolic blood pressure 81 mm[Hg] Shay Izquierdo MD Work Phone: [place] 04-29-2024 13:22-0400 Systolic blood pressure 121 mm[Hg] Shay Izquierdo MD Work Phone: [facility] 04-22-2024 12:55-0400 Body height 175.3 cm Jason Miller CNP Work Phone: [place] 04-22-2024 12:55-0400 Body mass index (BMI) [Ratio] 43.86 kg/m2 Jason Castro APRN - FRANNY Work Phone: [facility] 04-22-2024 12:55-0400 Body weight 134.72 kg Jason Castro APRN - [employer] Work Phone: [facility] 04-22-2024 12:55-0400 Diastolic blood pressure 80 mm[Hg] Jason Castro APRN - [employer] Work Phone: [place] 04-22-2024 12:55-0400 Heart rate 72 /min Jason Castro APRN - FRANNY Work Phone: [facility] 04-22-2024 12:55-0400 Systolic blood pressure 129 mm[Hg] Jason Castro APRN - [employer] Work Phone: [facility] 04-16-2024 17:35-0400 Diastolic blood pressure 112 mm[Hg] [facility] 04-16-2024 17:35-0400 Heart rate 81 /min [facility] 04-16-2024 17:35-0400 Respiratory rate 20 /min [facility] 04-16-2024 17:35-0400 SaO2% (BldA) [Mass fraction] 98 % [facility] 04-16-2024 17:35-0400 Systolic blood pressure 160 mm[Hg] [place] 06-23-2023 14:32-0500 Body mass index (BMI) [Ratio] 44.6 kg/m2 Dr. Wilfredo Fischer Work Phone: [facility] 06-23-2023 14:32-0500 Body temperature 98.6 [degF] Dr. Wilfredo Fischer Work Phone: [facility] 06-23-2023 14:32-0500 Body weight 137.[address] Wilfredo Fischer Work Phone: [facility] 06-23-2023 14:32-0500 Diastolic blood pressure 82 mm[Hg] Dr. Wilfredo Fischer Work Phone: [facility] 06-23-2023 14:32-0500 Heart rate 84 /min Dr. Wilfredo Fischer Work Phone: [facility] 06-23-2023 14:32-0500 Respiratory rate 17 /min Dr. Wilfredo Fischer Work Phone: [facility] 06-23-2023 14:32-0500 SaO2% (BldA) [Mass fraction] 98 % Dr. Wilfredo Fischer Work Phone: [facility] 06-23-2023 14:32-0500 Systolic blood pressure 120 mm[Hg] Dr. Wilfredo Fischer Work Phone: [facility] 06-04-2023 15:07-0500 Body temperature 98.4 [degF] Dr. Wilfredo Fischer Work Phone: [facility] 06-04-2023 15:07-0500 Body weight 137.[address] Wilfredo Fischer Work Phone: [facility] 06-04-2023 15:07-0500 Diastolic blood pressure 78 mm[Hg] Dr. Wilfredo Fischer Work Phone: [facility] 06-04-2023 15:07-0500 Heart rate 80 /min Dr. Wilfredo Fischer Work Phone: [facility] 06-04-2023 15:07-0500 Respiratory rate 14 /min Dr. Wilfredo Fischer Work Phone: [facility] 06-04-2023 15:07-0500 SaO2% (BldA) [Mass fraction] 99 % Dr. Wilfredo Fischer Work Phone: [facility] 06-04-2023 15:07-0500 Systolic blood pressure 115 mm[Hg] Dr. Wilfredo Fischer Work Phone: [facility] 04-20-2023 15:59-0400 Body mass index (BMI) [Ratio] 45 kg/m2 Dr. Wilfredo Fischer Work Phone: [facility] 04-20-2023 15:59-0400 Body temperature 99.1 [degF] Dr. Wilfredo Fischer Work Phone: [facility] 04-20-2023 15:59-0400 Body weight 138.[address] Wilfredo Fischer Work Phone: [facility] 04-20-2023 15:59-0400 Diastolic blood pressure 70 mm[Hg] Dr. Wilfredo Fischer Work Phone: [facility] 04-20-2023 15:59-0400 Heart rate 76 /min Dr. Wilfredo Fischer Work Phone: [facility] 04-20-2023 15:59-0400 Respiratory rate 17 /min Dr. Wilfredo Fischer Work Phone: [facility] 04-20-2023 15:59-0400 SaO2% (BldA) [Mass fraction] 99 % Dr. Wilfredo Fischer Work Phone: [facility] 04-20-2023 15:59-0400 Systolic blood pressure 120 mm[Hg] Dr. Wilfredo Fischer Work Phone: [facility] 04-08-2023 15:53-0400 Body mass index (BMI) [Ratio] 45.1 kg/m2 Dr. Wilfredo Fischer Work Phone: [facility] 04-08-2023 15:53-0400 Body temperature 98.6 [degF] Dr. Wilfredo Fischer Work Phone: [facility] 04-08-2023 15:53-0400 Body weight 138.[address] Wilfredo Fischer Work Phone: [facility] 04-08-2023 15:53-0400 Diastolic blood pressure 68 mm[Hg] Dr. Wilfredo Fischer Work Phone: [facility] 04-08-2023 15:53-0400 Heart rate 96 /min Dr. Wilfredo Fischer Work Phone: [facility] 04-08-2023 15:53-0400 Respiratory rate 17 /min Dr. Wilfredo Fischer Work Phone: [facility] 04-08-2023 15:53-0400 SaO2% (BldA) [Mass fraction] 98 % Dr. Wilfredo Fischer Work Phone: [facility] 04-08-2023 15:53-0400 Systolic blood pressure 128 mm[Hg] Dr. Wilfredo Fischer Work Phone: [facility] 03-18-2023 11:15-0400 Body mass index (BMI) [Ratio] 44 kg/m2 Dr. Wilfredo Fischer Work Phone: [facility] 03-18-2023 11:15-0400 Body temperature 98.2 [degF] Dr. Wilfredo Fischer Work Phone: [facility] 03-18-2023 11:15-0400 Body weight 135.[address] Wilfredo Fischer Work Phone: [facility] 03-18-2023 11:15-0400 Diastolic blood pressure 70 mm[Hg] Dr. Wilfredo Fischer Work Phone: [facility] 03-18-2023 11:15-0400 Heart rate 84 /min Dr. Wilfredo Fischer Work Phone: [facility] 03-18-2023 11:15-0400 Respiratory rate 17 /min Dr. Wilfredo Fischer Work Phone: [facility] 03-18-2023 11:15-0400 SaO2% (BldA) [Mass fraction] 99 % Dr. Wilfredo Fischer Work Phone: [facility] 03-18-2023 11:15-0400 Systolic blood pressure 116 mm[Hg] Dr. Wilfredo Fischer Work Phone: [facility] 02-24-2023 09:16-0400 Body height 175.[address] Wilfredo Fischer Work Phone: [facility] 02-24-2023 09:16-0400 Body mass index (BMI) [Ratio] 44 kg/m2 Dr. Wilfredo Fischer Work Phone: [facility] 02-24-2023 09:16-0400 Body temperature 98.6 [degF] Dr. Wilfredo Fischer Work Phone: [facility] 02-24-2023 09:16-0400 Body weight 135.[address] Wilfredo Fischer Work Phone: [facility] 02-24-2023 09:16-0400 Diastolic blood pressure 80 mm[Hg] Dr. Wilfredo Fischer Work Phone: [facility] 02-24-2023 09:16-0400 Heart rate 102 /min Dr. Wilfredo Fischer Work Phone: [facility] 02-24-2023 09:16-0400 Respiratory rate 17 /min Dr. Wilfredo Fischer Work Phone: [facility] 02-24-2023 09:16-0400 SaO2% (BldA) [Mass fraction] 97 % Dr. Wilfredo Fischer Work Phone: [facility] 02-24-2023 09:16-0400 Systolic blood pressure 116 mm[Hg] Dr. Wilfredo Fischer Work Phone: [facility] 02-06-2023 11:02-0400 Body height 175.3 cm Wilfredo Fischer DO Work Phone: [place] 02-06-2023 11:02-0400 Body mass index (BMI) [Ratio] 43.86 kg/m2 Wilfredo Fishcer DO Work Phone: [place] 02-06-2023 11:02-0400 Body temperature 96.91 [degF] Wilfredo Fischer DO Work Phone: [facility] [employer] 02-06-2023 11:02-0400 Body weight 134.72 kg Wilfredo Fischer DO Work Phone: [facility] [employer] 02-06-2023 11:02-0400 Diastolic blood pressure 88 mm[Hg] Wilfredo Deleona DO Work Phone: [facility] [employer] 02-06-2023 11:02-0400 Heart rate 88 /min Wilfredo Deleona DO Work Phone: [facility] [employer] 02-06-2023 11:02-0400 SaO2% (BldA) [Mass fraction] 97 % Wilfredo Deleona DO Work Phone: [facility] [employer] 02-06-2023 11:02-0400 Systolic blood pressure 134 mm[Hg] Wilfredo Deleona DO Work Phone: [facility] [employer] 08-01-2022 08:40-0500 Body height 175.3 cm Wilfredo Deleona DO Work Phone: [facility] [employer] 08-01-2022 08:40-0500 Body mass index (BMI) [Ratio] 44.01 kg/m2 Wilfredo Deleona DO Work Phone: [facility] [employer] 08-01-2022 08:40-0500 Body temperature 97.11 [degF] Wilfredo Deleona DO Work Phone: [facility] [employer] 08-01-2022 08:40-0500 Body weight 135.17 kg Wilfredo Deleona DO Work Phone: [facility] [employer] 08-01-2022 08:40-0500 Diastolic blood pressure 82 mm[Hg] Wilfredo Deleona DO Work Phone: [facility] [employer] 08-01-2022 08:40-0500 Heart rate 87 /min Wilfredo Deleona DO Work Phone: [facility] [employer] 08-01-2022 08:40-0500 SaO2% (BldA) [Mass fraction] 97 % Wilfredo Deleona DO Work Phone: [facility] [employer] 08-01-2022 08:40-0500 Systolic blood pressure 119 mm[Hg] Wilfredo Fischer DO Work Phone: [facility] [employer] 11-13-2020 14:06-0400 Body temperature 98.01 [degF] [employer] Work Phone: 11-13-2020 14:06-0400 Diastolic blood pressure 78 mm[Hg] [employer] Work Phone: 11-13-2020 14:06-0400 Heart rate 78 /min [employer] Work Phone: 11-13-2020 14:06-0400 Respiratory rate 18 /min [employer] Work Phone: 11-13-2020 14:06-0400 Systolic blood pressure 120 mm[Hg] [facility] Work [facility]: 11-13-2020 11:54-0400 SaO2% (BldA) [Mass fraction] 97 % [employer] Work Phone: 11-13-2020 11:41-0400 Body height 175.3 cm [employer] Work Phone: 11-13-2020 11:41-0400 Body mass index (BMI) [Ratio] 31.9 kg/m2 [employer] Work Phone: 11-13-2020 11:41-0400 Body weight 97.98 [facility] Work Phone: 08-09-2020 14:12-0500 Body Temperature 98.01 [degF] Niurka Rivas [employer] Work Phone: 08-09-2020 14:12-0500 BP Diastolic 86 mm[Hg] Niurka Rivas [employer] Work Phone: 08-09-2020 14:12-0500 BP Systolic 154 mm[Hg] Niurka Rivas [employer] Work Phone: 08-09-2020 14:12-0500 Pulse (Heart Rate) 66 /min Niurka Rivas [employer] Work Phone: 08-09-2020 14:12-0500 Pulse Oximetry 100 % Niurka Rivas [employer] Work Phone: 08-09-2020 14:12-0500 Respiratory Rate 18 /min Niurka AMARO Work Phone: Encounters Encounter Date Encounter Type Care Provider Facility Start: 05-04-2025 End: 05-04-2025 [facility] Start: 04-26-2025 End: 04-26-2025 ambulatory Tiarra Ibrahim [employer] Facility:[facility] Start: 04-26-2025 End: 04-26-2025 ambulatory Tiarra Ibrahim [employer] Facility:[facility] Start: 04-20-2025 End: 04-20-2025 ambulatory [place] [facility] Start: 04-15-2025 End: 04-15-2025 Emergency department patient visit Dr. Erick Gibson MD -Emergency Department Work Phone: Start: 04-13-2025 End: 04-13-2025 Patient encounter procedure Chaya Alejandro CNM -[facility] Work Phone: Start: 04-13-2025 End: 04-13-2025 ambulatory No Primary Care Physician -[facility] Start: 04-06-2025 End: 04-06-2025 Patient encounter procedure Tiarra Ibrahim [employer]-C -[facility] Work Phone: Start: 04-06-2025 End: 04-06-2025 ambulatory No Primary Care Physician -[facility] Start: 03-24-2025 End: 03-24-2025 ambulatory CAITLYN GRANADO [facility] Start: 03-22-2025 End: 03-22-[address] Mignon Washington DO -[facility] Work Phone: Start: 03-22-2025 End: 03-22-2025 ambulatory No Primary Care Physician -[facility] Start: 03-22-2025 End: 03-22-2025 ambulatory Comfort Agee Facility:[facility] Start: 03-07-2025 End: 03-07-2025 ambulatory No Primary Care Physician -Laboratory Specimen Start: 03-07-2025 End: 03-07-[address] Comfort Agee MD -Laboratory Specimen Work Phone: Start: 03-07-2025 End: 03-07-[address] Comfort Agee MD -[facility] Work Phone: Start: 03-07-2025 End: 03-07-2025 ambulatory No Primary Care Physician -[facility] Start: 03-07-2025 End: 03-07-2025 ambulatory Comfort Agee Facility:[facility] Start: 03-04-2025 End: 03-04-2025 Emergency department patient visit No Primary Care Physician -Emergency Department Work Phone: Start: 10-05-2024 End: 10-05-2024 Emergency department patient visit Dr. Abhi Cooper DO Work Phone: -Emergency Department Work Phone: Start: 10-05-2024 End: 10-05-2024 ambulatory No Primary Care Physician Facility:[facility] Start: 09-28-2024 End: 09-28-2024 Emergency department patient visit Dr. Abhi Cooper DO Work Phone: -Emergency Department Work Phone: Start: 09-28-2024 End: 09-28-[address] Abhi Cooper DO -Emergency Department Work Phone: Start: 09-28-2024 End: 09-28-2024 ambulatory No Primary Care Physician Facility:[facility] Start: 09-24-2024 End: 09-24-2024 Emergency department patient visit Dr. Abhi Cooper DO Work Phone: -Emergency Department Work Phone: Start: 09-24-2024 End: 09-24-[address] Abhi Cooper DO -Emergency Department Work Phone: Start: 09-24-2024 End: 09-24-2024 ambulatory No Primary Care Physician Facility:[facility] Start: 09-21-2024 End: 09-21-2024 Emergency department patient visit Dr. Abhi Cooper DO Work Phone: -Emergency Department Work Phone: Start: 04-29-2024 End: 04-29-2024 Office outpatient new 30 minutes Shay Izquierdo MD Work Phone: [facility] Comment on above: Tear of left acetabu lar labrum, initial encounter (Primary Dx); Left hip pain; Tendinopathy of gluteus medius Start: 04-29-2024 End: 04-29-2024 Subsequent hospital visit by physician Shay Izquierdo MD Work Phone: [facility] Comment on above: Left hip pain Start: 04-29-2024 End: 04-29-2024 ambulatory [facility] Start: 04-22-2024 End: 04-22-2024 Office outpatient new 45 minutes Jason Poole [employer]NA[employer] - [employer] Work Phone: [facility] Comment on above: Lumbar pain (Primary Dx); Lumbar radiculopathy; Lumbar spondylosis; Degeneration of intervertebral disc of lumbar region with discogenic back pain and lower extremity pain; Left hip pain Start: 04-22-2024 End: 04-22-2024 ambulatory [facility] Start: 04-16-2024 End: 04-16-2024 Emergency department patient visit WILFREDO FISCHER [facility] Comment on above: Acute low back pain with sciatica, sciatica laterality unspecified, unspecified back pain laterality (Primary Dx) Start: 06-26-2023 End: 06-26-[address] Wilfredo Fischer Work Phone: [facility] Work Phone: Start: 06-26-2023 End: 06-26-[address] Wilfredo Fischer Work Phone: [facility] Work Phone: Start: 06-23-2023 End: 06-23-[address] Wilfredo Fischer Work Phone: [facility] Work Phone: Start: 06-04-2023 End: 06-04-[address] Wilfredo Fischer Work Phone: [facility] Work Phone: Start: 04-20-2023 End: 04-20-[address] Wilfredo Fischer Work Phone: [facility] Work Phone: Start: 04-08-2023 End: 04-08-[address] Wilfredo Fischer Work Phone: [facility] Work Phone: Start: 04-08-2023 Refill Wilfredo carrillo DO Work Phone: [facility] Start: 03-27-2023 End: 03-27-[address] Wilfredo Fischer Work Phone: [facility] Work Phone: Start: 03-18-2023 End: 03-18-[address] Wilfredo Fischer Work Phone: [facility] Work Phone: Start: 03-12-2023 End: 03-12-[address] Wilfredo Fischer Work Phone: [facility] Work Phone: Start: 03-12-2023 End: 03-12-[address] Wilfredo Fischer Work Phone: [facility] Work Phone: Start: 03-05-2023 Refill Wilfredo carrillo DO Work Phone: [facility] Start: 02-27-2023 End: 02-27-[address] Wilfredo Fischer Work Phone: [facility] Work Phone: Start: 02-24-2023 End: 02-24-[address] Wilfredo Fischer Work Phone: [facility] Work Phone: Start: 02-06-2023 End: 02-06-2023 Office outpatient visit 25 minutes Wilfredo Fischer DO Work Phone: [facility] Comment on above: Essential hypertensi on (Primary Dx); Idiopathic neuropathy Start: 01-15-2023 Orders Only Wilfredo carrillo DO Work Phone: [facility] Comment on above: Anxiety (Primary Dx) Start: 01-01-2023 Telephone encounter Wilfredo scanlon DO Work Phone: [facility] Medicine Comment on above: Referral Extension Start: 01-01-2023 End: 01-01-2023 Subsequent hospital visit by physician Wilfredo Fischer DO Work Phone: [facility] Comment on above: Paresthesia of upper extremity; Abnormal NCS (nerve conduction studies) Start: 12-31-2022 Refill Wilfredo carrillo DO Work Phone: [facility] Start: 10-20-2022 Telephone encounter Wilfredo Reyesrijameea DO Work Phone: [facility] Comment on above: Orders (MRI C Spine) Start: 10-09-2022 Telephone encounter Wilfredo Reyesrijameea DO Work Phone: [facility] Medicine Comment on above: Orders (EMG/NCS B/L Upper) Start: 08-03-2022 Telephone encounter Wilfredo Reyesrijameea DO Work Phone: [facility] Medicine Start: 08-01-2022 End: 08-01-2022 Office outpatient visit 15 minutes Wilfredo Maximiliano Adriennejared DO Work Phone: [facility] Comment on above: Lumbar radiculopathy , chronic (Primary Dx); Paresthesia of upper extremity; Class 3 severe obesity due to excess calories with serious comorbidity and body mass index (BMI) of 40.0 to 44.9 in adult ([facility]) Start: 07-18-2022 End: 07-18-2022 Subsequent hospital visit by physician Wilfredo Fischer DO Work Phone: [facility] Radiology Comment on above: Tactile hypesthesia; Lumbar radiculopathy; Bilateral hip pain Start: 07-08-2022 Telephone encounter Wilfredo Viera Dominick scanlon DO Work Phone: [facility] Comment on above: Missed Call Start: 07-03-2022 Orders Only Wilfredo carrillo DO Work Phone: [facility] Comment on above: Tactile hypesthesia (Primary Dx); Lumbar radiculopathy Start: 04-17-2022 Transcribe Orders Wilfredo Viera Pet rilla DO Work Phone: [facility] Central Scheduling Comment on above: Cough, unspecified ( Primary Dx) Start: 04-13-2022 Transcribe Orders Wilfredo Viera Pet rilla DO Work Phone: [facility] Comment on above: Cough, unspecified ( Primary Dx) Start: 03-21-2022 ambulatory Wilfredo Amado [facility] Start: 03-21-2022 End: 03-21-2022 Subsequent hospital visit by physician Wilfredo Fischer DO Work Phone: [facility] Comment on above: Cough Start: 09-27-2021 ambulatory Mignon Morales [facility] Start: 09-27-2021 End: 09-27-2021 Subsequent hospital visit by physician Mignon Morales PA-C Work Phone: [facility] [place] [facility] Start: 09-13-2021 End: 09-13-2021 Subsequent hospital visit by physician Mignon Morales PA-C Work Phone: [facility] Start: 09-06-2021 End: 09-06-2021 Subsequent hospital visit by physician Mignon Morales PA-C Work Phone: [facility] Start: 08-28-2021 End: 08-28-2021 Subsequent hospital visit by physician Mignon Morales PA-C Work Phone: [facility] Start: 07-03-2021 End: 07-03-2021 Subsequent hospital visit by physician Mignon Morales PA-C Work Phone[facility] Start: 06-03-2021 End: 06-03-2021 ambulatory UNKNOWN PROVIDER [facility] Start: 05-17-2021 ambulatory UNKNOWN PROVIDER [facility] Start: 11-13-2020 End: 11-13-2020 Emergency department patient visit [facility] ED Comment on above: Mouth pain (Primary Dx); Throat pain Start: 10-29-2020 End: 10-29-2020 Subsequent hospital visit by physician Pinky Romero MD Work Phone: [facility] Comment on above: Instability of right shoulder joint Start: 10-05-2020 End: 10-05-2020 Subsequent hospital visit by physician Pinky Romero Work Phone: [facility] [place] [facility] Start: 09-21-2020 End: 09-21-2020 Subsequent hospital visit by physician Pinky Romero Work Phone: [facility] Start: 09-10-2020 End: 09-10-2020 Subsequent hospital visit by physician Pinky Romero Work Phone: [facility] Start: 08-09-2020 End: 08-09-2020 Emergency department patient visit Niurka Rivas Work Phone: [facility] Comment on above: Acute pain of right shoulder (Primary Dx) Start: 01-01-2018 RhD negative Niurka AMARO Work Phone: Start: 02-26-2017 End: 02-26-2017 Emergency department patient visit [facility] Facility:B Procedures Date Procedure Procedure Detail Performing Clinician Start: 04-15-2025 Estimated creatinine clearance No Primary Care Physician Start: 04-15-2025 Urnls dip stick/tabl et reagent auto microscopy No Primary Care Physician Start: 03-22-2025 Hepatitis C antibody measurement No [...] HCV Quant by PCR testing - HCVPCR lc#[id number] Non Reactive: < 0.8 Equivocal: >/= 0.8 [...] panel - S fer or Plasma Wilfredo Petrilla DO Work Phone: Start: 10-29-2020 Mri any [...] Hx of cesa rean section Tiarra Ibrahim [employer] H/O: section Hx of cesa rean section Chaya [employer] H/O: section Hx of cesa rean section Tiarra Ibrahim [employer] H/O: section Hx of cesa rean section Dr. Mignon Washington DO Plan of Treatment Date Care Activity Detail Author Start: 2064 RSV Immunization for Adults (1 - 1-dose 75+ series) RSV Immunization for Adults (1 - 1-dose 75+ series) [facility] [employer] Start: 2049 RSV Immunization age d 60 or older (1 - 1-dose 60+ series) RSV Immunization aged 60 or older (1 - 1-dose 60+ series) [facility] [employer] Start: 2039 Zoster Vaccines (1 of 2) Zoste r Vaccines (1 of 2) [place] Start: 01-02-2028 DTaP/Tdap/Td vaccine (2 - Td) DTaP/Tdap/Td vaccine (2 - Td) [employer] Work Phone: Start: 01-02-2028 DTaP/Tdap/Td vaccine (3 - Td or Tdap) DTaP/Tdap/Td vaccine (3 - Td or Tdap) [facility] Start: 01-02-2028 DTaP/Tdap/Td vaccine (3 - Td) DTaP/Tdap/Td vaccine (3 - Td) [facility] Work Phone: Start: 01-02-2028 DTaP/Tdap/Td Vaccine s (3 - Td or Tdap) DTaP/Tdap/Td Vaccines (3 - Td or Tdap) [place] Start: 03-21-2027 Lipid panel Lipid Panel [facility] Start: 05-04-2025 End: 05-04-2025 Patient encounter procedure Advanced maternal age (AMA) in -[facility] Work Phone: Start: 04-26-2025 End: 04-26-2025 Patient encounter procedure -[facility] Work Phone: Start: 04-15-2025 End: 04-15-2025 Emergency department patient visit [facility] -Emergency Department Work Phone: Start: 03-22-2025 [facility] Start: 03-04-2025 [facility] Start: 10-05-2024 [facility] Start: 09-28-2024 [facility] Start: 09-24-2024 [facility] Start: 09-21-2024 [facility] Start: 04-29-2024 End: 04-29-2024 Patient encounter procedure 04/29/2024 1:15 PM EDT [facility] [place] [phone] Shay Izquierdo MD [address] [place] [address] [facility] Start: 04-26-2024 End: 07-27-2024 XR Hip - left 3 Views XR hip left 2 or 3 views Imaging Routine Left hip pain Expected: 04/26/2024, Expires: 07/27/2024 [facility] Work Phone: Comment on above: Expected: 04/26/2024 , Expires: 07/27/2024 Start: 02-28-2024 COVID-19 Vaccine ( season) COVID-19 Vaccine ( season) [place] Start: 02-28-2024 COVID-19 Vaccine () COVID-19 Vaccine () [place] Start: 02-28-2024 Influenza vaccination Influenza Vacc ine (#1) [place] Start: 08-01-2023 Diabetes mellitus screening Diabetes Screening [place] Start: 03-21-2023 Depression Screen Depression Screen [facility] Start: 03-21-2023 Influenza vaccination Flu vaccine (# 1) [facility] Comment on above: Postponed from 02/27 (Patient Refused) Start: 03-12-2023 Roll Changer stdy unatnd w/mi n hrt rate/o2 sat/resp anal ENTEROSTOMAL THERAPY NURSE STDY UNATND W/ANAL [facility] Start: 02-27-2023 Influenza vaccination [facility] Start: 01-16-2023 End: 01-16-2023 Patient encounter procedure 01/16/2023 1:15 PM EDT Appointment [facility] [address] [place] [id number] Wilfredo Fischer, DO [address] [place], [place] [id number] [facility] Start: 01-01-2023 End: 01-01-2023 Patient encounter procedure 01/01/2023 1:00 PM EDT Appointment [facility] [address] [place] [address] Wilfredo Fischer , DO [address] [place] [address] [facility] Start: 10-20-2022 End: 10-21-2023 MR Cervical spine WO contrast MR cervical spine wo contrast Imaging Routine Lumbar radiculopathy, chronic Expected: 10/20/2022, Expires: 10/21/2023 [facility]: Comment on above: Expected: 10/20/2022 , Expires: 10/21/2023 Start: 10-09-2022 End: 10-10-2023 NERVE CONDUCTION TEST WITH [facility] NERVE CONDUCTION TEST WITH [facility] Neurology Routine Paresthesia of upper extremity Expected: 10/09/2022 (Approximate), Expires: 10/10/2023 [facility] Work Phone: Comment on above: Expected: 10/09/2022 (Approximate), Expires: 10/10/2023 Start: 08-01-2022 End: 08-01-2023 XR Cervical spine 4 or 5 Views XR cervical spine complete 4 to 5 views Imaging Routine Paresthesia of upper extremity Expected: 08/01/2022, Expires: 08/01/2023 [employer] Work Phone: Comment on above: Expected: 08/01/2022 , Expires: 08/01/2023 Start: 07-03-2022 End: 07-03-2023 XR Lumbar spine 4 Views XR lumbar spine complete 4+ views Imaging Routine Tactile hypesthesia Lumbar radiculopathy Expected: 07/03/2022, Expires: 07/03/2023 [employer] Work Phone: Comment on above: Expected: 07/03/2022 , Expires: 07/03/2023 Start: 06-25-2022 COVID-19 Vaccine (#1) COVID-19 Vacci ne (#1) [facility] Comment on above: Postponed from 12/30 (Patient Refused) Start: 05-31-2022 Creatinine measurement Creatinine mo nitoring [facility] Start: 05-31-2022 Potassium monitoring Potassium monit oring [facility] Start: 05-02-2022 End: 05-02-2022 Patient encounter procedure 05/02/2022 Office Visit Family Medicine Wilfredo Fischer, DO [address] [place] [id number] [facility] Start: 02-27-2022 Influenza vaccination Influenza Vacc ine (#1) [place] Start: 11-20-2021 End: 11-20-2021 Patient encounter procedure 11/20/2021 Office Visit Orthopedic Surgery Nelson Brown MD [address] [facility] [address] [place] [address] [facility] [place] Start: 07-10-2021 End: 07-10-2021 Patient encounter procedure 07/10/2021 Office Visit Orthopedic Surgery Mginon Morales PA-C [address] [facility] [place] [address] [place], [place] [address] [facility] [place] Start: 02-27-2021 Influenza vaccination [facility] Start: 10-11-2020 End: 10-11-2020 Office Visit 10/11/2020 Office Visit Sports Medicine Pinky Romero MD [address] [facility] [address] [place] [address] [phone] [facility] [place] Start: 08-19-2020 Screening for malign ant neoplasm of cervix [facility] Start: 02-28-2020 Influenza vaccination Flu vaccine (# 1) [facility] Work Phone: Start: 2019 Screening for malign ant neoplasm of cervix [facility] Start: 2010 Screening for malign ant neoplasm of cervix Pap Smear [place] Start: 2008 Hepatitis B Vaccines (1 of 3 - 19+ 3-dose series) Hepatitis B Vaccines (1 of 3 - 19+ 3-dose series) [place] Start: 2007 Hepatitis C screening [facility] Start: 2005 COVID-19 Vaccine (1) COVID-19 Vaccin e (1) [facility] Work Phone: Start: 2002 Varicella vaccination Varicell a Vaccines (1 of 2 - 13+ 2-dose series) [place] Start: 2001 COVID-19 Vaccine (1) COVID-19 Vaccin e (1) [facility] Work Phone: Start: 2001 Depression Screen Depression Screen [facility] Start: 2001 Depression Screening Depression Scre ening [place] Start: 1995 Pneumococcal 0-64 ye ars Vaccine (1 - PCV) Pneumococcal 0-64 years Vaccine (1 - PCV) [facility] Start: 1995 Pneumococcal 0-64 ye ars Vaccine (1 of 1 - PPSV23) Pneumococcal 0-64 years Vaccine (1 of 1 - PPSV23) [facility] Work Phone: Start: 1995 Pneumococcal 0-64 ye ars Vaccine (1 of 2 - PPSV23) Pneumococcal 0-64 years Vaccine (1 of 2 - PPSV23) [facility] Start: 1995 Pneumococcal Vaccine : Pediatrics (0 to 5 Years) and At-Risk Patients (6 to 64 Years) (1 - PCV) Pneumococcal Vaccine: Pediatrics (0 to 5 Years) and At-Risk Patients (6 to 64 Years) (1 - PCV) [place] Start: 1995 Pneumococcal Vaccine : Pediatrics (0 to 5 Years) and At-Risk Patients (6 to 64 Years) (1 of 2 - PCV) Pneumococcal Vaccine: Pediatrics (0 to 5 Years) and At-Risk Patients (6 to 64 Years) (1 of 2 - PCV) [place] Start: 1994 COVID-19 Vaccine (1) COVID-19 Vaccin e (1) [facility] Start: 1990 MMR Vaccines (1 of 1 - Standard series) MMR Vaccines (1 of 1 - Standard series) [place] Start: 1990 Varicella vaccination Varicell a Vaccines (1 of 2 - 2-dose childhood series) [place] Start: 1990 Varicella vaccine (1 of 2 - 2-dose childhood series) Varicella vaccine (1 of 2 - 2-dose childhood series) [facility] Start: 1989 COVID-19 Vaccine (#1) COVID-19 Vacci ne (#1) [place] Start: 1989 Hepatitis B Vaccines (1 of 3 - 3-dose series) Hepatitis B Vaccines (1 of 3 - 3-dose series) [place] Start: 1989 Hepatitis C screening Hepatitis C sc reen [facility] Start: 1989 HIV screening HIV Screening [facility] He alth CBC W Auto Different ial panel - Blood [facility] Chlamydia deoxyribon ucleic acid detection [facility] Comprehensive metabo lic 1999 panel - Serum or Plasma [facility] Hemoglobin A1c/Hemoglobin.total in Blood [facility] Hepatitis C antibody measurement [facility] Liquid based cervica l cytology screening [facility] MR Brain WO and W co ntrast IV [facility] End: 01-01-2023 MR Cervical spine WO contrast MR cervical spine wo contrast Imaging Routine Paresthesia of upper extremity Abnormal NCS (nerve conduction studies) Once for 1 Occurrences starting 01/01/2023 until 01/01/2023 [employer] Work Phone: Comment on above: Once for 1 Occurrenc es starting 01/01/2023 until 01/01/2023 OUTSIDE PROCEDURE SCAN OUTSIDE P ROCEDURE SCAN Procedures Ordered: 07/18/2022 [employer] Comment on above: Ordered: 07/18/2022 Patient Education [facility] Work Phone: Patient referral [facility] Work Phone: Polysomnography [facility] Polysomnography [facility] Procedure [facility] Protein/Creatinine [ Ratio] in Urine [facility] Pulmonary function test Pulmonar y function test PFT Routine Cough, Unspecified Ordered: 04/13/2022 [employer] Work Phone: Comment on above: Ordered: 04/13/2022 Rubella IgG measurement [facility] Serologic test for syphilis [facility] End: 03-21-2022 XR CHEST (2 VW) [employer] Work Phone: Comment on above: 1 Occurrences starti ng 03/21/2022 until 03/21/2022 End: 04-29-2024 XR Hip - left 3 Views [facility] Comment on above: Once for 1 Occurrenc es starting 04/29/2024 until 04/29/2024 End: 07-18-2022 XR hips bilateral 5+ views [facility] Comment on above: Once for 1 Occurrenc es starting 07/18/2022 until 07/18/2022 End: 07-18-2022 XR Lumbar spine 4 Views [facility] Work Phone: Comment on above: Once for 1 Occurrenc es starting 07/18/2022 until 07/18/2022 End: 10-29-2020 XR SHOULDER ARTHROGRAM RIGHT S&I XR SHOULDER ARTHROGRAM RIGHT S&I Imaging Routine Instability of right shoulder joint 1 Occurrences starting 10/29/2020 until 10/29/2020 [facility] Work Phone: Comment on above: 1 Occurrences starti ng 10/29/2020 until 10/29/2020 [facility] Immunizations Immunization Date Immunization Notes Care Provider Fa cility 10-05-2024 rabies vaccine, for intramuscular injection Dr. Abhi Cooper DO Work Phone: [facility] 09-28-2024 rabies vaccine, for intramuscular injection Dr. Abhi Cooper DO Work Phone: [facility] 09-24-2024 rabies vaccine, for intramuscular injection Dr. Abhi Cooper DO Work Phone: [facility] 09-21-[address] Milvia Cooper DO Work Phone: [facility] 09-21-2024 rabies vaccine, for intramuscular injection Dr. Abhi Cooper DO Work Phone: [facility] 09-21-2024 tetanus toxoid, reduced diphtheria toxoid, and acellular pertussis vaccine, adsorbed Dr. Abhi Cooper DO Work Phone: [facility] 01-01-2018 tetanus toxoid, reduced diphtheria toxoid, and acellular pertussis vaccine, adsorbed [facility] Work Phone: 06-18-2015 influenza virus vaccine, unspecified formulation Wilfredo Fischer DO Work Phone: [facility] Work Phone: 06-18-2015 influenza, injectabl e, quadrivalent, contains preservative Wilfredo Fischer DO Work Phone: [facility] 06-18-2015 influenza, injectabl e, quadrivalent, preservative free Dr. Wilfredo Fischer Work Phone: [facility] 06-18-2015 influenza, seasonal, injectable, preservative free Wlifredo Fischer DO Work Phone: [place] 10-03-2013 tetanus toxoid, reduced diphtheria toxoid, and acellular pertussis vaccine, adsorbed Wilfredo Fischer DO Work Phone: [facility] Work Phone: NEGATED: Highlighted row has not occurred!01-01-2018 measles, mumps and rubella virus vaccine Niurka Rivas [facility] Comment on above: Deferred: - immune Payers Date Payer Category Payer Self-pay [id number] 2024 Unknown [id number] 2018 Medicaid [id number] 2016 Unknown [id number] 1989 Unknown [id number] 2.16. [id number] 1989 Unknown [id number] 2.16 [id number] 1989 Unknown [id number] 2.16 [id number] 1989 Unknown [id number] 2.16. [id number] 1989 Unknown [id number] 2.16. [id number] 1989 Unknown [id number] 2.16. 840.1.829950.3.579.2.479 1989 Unknown [id number] 2.16. 840.1.048121.3.579.2.479 1989 Unknown [id number] 2.16. 840.1.291373.3.579.2.479 Unknown Unknown [id number] Unknown [id number] 2.16.8 [id number] Unknown [id number] 2.16.8 [id number] Unknown [id number] 2.16.8 [id number] Unknown [id number] 2.16.8 40.1.685222.3.579.2.462 Unknown [id number] 2.16.8 40.1.148825.3.579.2.462 Unknown [id number] 2.16.8 [id number] Unknown [id number] 2.16.8 [id number] Unknown [id number] 2.16.8 40.1.665075.3.579.2.462 Unknown [id number] 2.16.8 [id number] Unknown [id number] 2.16.8 [id number] Unknown [id number] 2.16.8 [id number] Unknown [id number] 2.16.8 [id number] Unknown [id number] 2.16.8 [id number] Unknown [id number] 2.16.8 [id number] Unknown [id number] 2.16.8 [id number] Social History Date Type Detail Facility Start: 09-16-2016 End: 08-09-2020 Tobacco smoking status [facility] Light tobacco smoker [facility] Start: 08-09-2020 End: 03-21-2022 Tobacco use and exposure Never used [employer] Work Phone: Start: 08-09-2020 End: 11-13-2020 Alcohol intake Current non-drinker of alcohol (finding) [employer] Work Phone: Start: 12-05-2017 End: 03-21-2022 Tobacco Comment only smokes when she has a drink [employer] Work Phone: Start: 1990 Sex Assigned At Not on file [facility] Work Phone: Start: 06-10-2021 End: 02-06-2023 Exposure to SARS-CoV-2 (event) Not sure [employer] Work Phone: Start: 06-12-2021 End: 07-06-2022 Alcohol intake Current drinker of alcohol (finding) [employer] Work Phone: Start: 06-03-2021 History SDOH Alcohol Comment occ [employer] Work Phone: Start: 03-21-2022 End: 09-21-2024 Tobacco smoking status [facility] Occasional tobacco smoker [employer] Work Phone: History of tobacco use Cigarette Smoker S [employer] Work Phone: Start: 03-21-2022 End: 07-06-2022 Cigarettes smoked current (pack per day) - Reported 0.5 [employer] Phone: Start: 03-21-2022 History SDOH Alcohol Frequency 3 [employer] Work Phone: Start: 03-21-2022 History SDOH Alcohol Std Drinks 2 [employer] Work Phone: Start: 03-21-2022 History SDOH Social Connections Phone 5 [employer] Work Phone: Start: 03-21-2022 History SDOH Social Connections Taoism 1 [employer] Work Phone: Start: 03-21-2022 History SDOH Social Connections Living 8 [employer] Work Phone: Start: 03-21-2022 History SDOH Physica l Activity DPW 0 [employer] Work Phone: Start: 12-31-2022 End: 03-19-2023 Tobacco use panel [facility] Start: 04-17-2022 Gender identity Identifies as female gender (finding) [place] Start: 02-24-2023 End: 06-23-2023 Tobacco smoking status [facility] Unknown if ever smoked [facility] Start: 1990 Sex Assigned At Female [facility] Start: 01-27-2022 End: 10-05-2024 Sex Female (finding) [place] Start: 03-04-2025 End: 04-15-2025 Tobacco smoking status [facility] Ex-smoker (finding) [facility] Mental Status Date Assessment Result Facility 04-15-2025 Cognitive function Level [facility] Work Phone: Clinical Notes 04-05-2021 to 04-15-2025 Note Date & Type Note Facility 04-15-2025 Discharge summary [facility] 04-15-2025 Discharge summary Note Date/Time April 15, 2025 10:11pm [facility] Medical Records Department [address] [place] [address] Emergency Department Summary 04/15/25 MR#: [id number] Acct: [id number] Name: CHERYL WOOD Rep #:[id number] : 1990 34 From: Erick Gibson MD PCP: Care Physician,No Primary Status :REG ER Location: ED HPI History of Present Illness Chief Complaint: Headache Narrative Narrative: 34-year-old female, G3, P2 at approximately 15 weeks gestation presents with fluctuating blood pressures that she had today. She relates history that she started labetalol recently, 200 mg twice a day for -induced hypertension. 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 She did not have any protein in her urine. Today, she has had fluctuating blood pressures a few times in the 150 systolic and 140s. She had an isolated reading in the 120s. She had taken her 200 mg of labetalol this morning at 9 AM, approximately 10 to 11 hours ago. She states that she has history of chronic headaches and increased intracranial pressure ever since her last . She is concerned about her fluctuating blood pressure readings even with a diastolic of 90. No exacerbating or alleviating factors. [facility] Medical History Polyneuropathy Hidradenitis suppurativa Asthma Headache Obesity Vertigo Peripheral vestibulopathy Fatigue delivery delivered Home Medications ?Medication ?Instructions ?Recorded ?Last Taken ?Type albuterol sulfate 90 mcg/actuation 2 puff inhalation Q 6H PRN 02/24/23 Unknown History aerosol inhaler mometasone-formoterol HFA 200 2 puff inhalation BID Unknown History mcg-5 mcg/actuation aerosol inhaler (Dulera) choline 110 mg PO QDAY 03/07/25 Unkn own History multivitamin no.47-iron fum 27 cap PO 03/07/25 Unknown History mg-folate no.1 1 mg-dha 300 mg capsule (PNV-DHA) labetalol 200 mg tablet 200 mg PO BID #60 tabs 04/06 Unknown Rx Allergy/AdvReac Type Severity Reaction Status Date / Time minocycline AdvReac Severe Hives Verified 04/15/25 18:50 Family History Maternal Grandfather Diabetes Heart disease [...] pulmonary disease) Maternal Grandfather Cancer Prostate cancer Surgical History History of third molar tooth extraction Hx of section Status post labral repair of shoulder Social History adopted: No household members: significant other, children and other details: custody of nephew 13yo housing: house number of children: 2 current occupational status: employed current occupation: [employer] current occupational exposures/hazards: No pets and animals: [...] physical activity do you participate in: none tamir/temple: None seatbelt use: always do you feel safe at home: Yes additional social history: [employer] work ROS ROS ED ROS Narrative Review of systems is positive for headache with history of intracranial pressure. Patient concerned about fluctuating blood pressure readings throughout the day today. No vaginal bleeding or pelvic cramping. No exacerbating or alleviating factors. EXAM Physical Exam Narrative Exam Narrative: Afebrile. Vital signs noted. Nontoxic-appearing. Cardiovascular examination is regular rate and rhythm. Lungs are clear to auscultation bilaterally. Abdomen is soft and nontender without guarding or rebound. Neurological examination nonfocal, nonlateralizing. No noted pedal edema. Const Vital Signs: 04/15/25 18:48 04/15/25 19:12 04/15/25 19:14 Temperature 97.8 F Temperature Source Oral Pulse Rate 95 88 Respiratory Rate 18 18 Respiratory Effort Normal Non-Labored Respiratory Pattern Normal Blood Pressure 129/85 H 151/81 H Blood Pressure Mean 99 104 Pulse Ox 98 98 Oxygen Delivery Method Room Air Room Air 04/15/25 19:42 04/15/25 20:58 Temperature Temperature Source Pulse Rate 90 88 Respiratory Rate 18 16 Respiratory Effort Respiratory Pattern Blood Pressure 100/82 H 159/85 H Blood Pressure Mean 88 109 Pulse Ox 100 100 Oxygen Delivery Method Room Air Room Air MDM MDM MDM Narrative Medical decision making narrative: Differential diagnosis includes but not limited to -induced hypertension exacerbation versus preeclampsia. I do feel that she is early in her for this however. Her initial blood pressure reading systolicallywas 129. It was 129/85 and 151/81. On the monitor while in the room, she had ablood pressure reading of 100 systolic which may have been machine/cuff error. She will remain on the education trainer. I will obtain a CBC, CMP, and UA to make sure that she does not have help syndrome. I reviewed her laboratory work and she has normal white count of 8.1 with hemoglobin normal at 12.0, platelet count normal at 257. CMP is grossly unremarkable with normal sodium and potassium. BUN normal at 10 with creatinine0.84. Urinalysis shows slight elevation in ketones. There is 15 protein. Her blood pressure will fluctuate between 130 systolic to 160 systolic according to the RN. I discussed patient with Dr. Comfort Agee, with ASSIST[employer] COVERING PRINTER. She agrees that she is early in the for preeclampsia/eclampsia. She recommended sending off a urine protein to creatinine ratio. Was not felt that patient had to wait for this. They will consider changing her medication if she has continued elevation and readings of high systolic blood pressure. Upon repeat examination, patient states her headache has improved. I do not feel that she needs a CT of the brain for intracranial hemorrhage. Patient will be discharged to follow-up with ASSISTANT FLOOR COVERING PRINTER and keep a log of her blood pressures as she has been doing today. Return instructions to the emergency department were reviewed. Disposition is discharged home in stable condition. History & Record Review Discussion w/independent historian: Patient Lab Data Attestation: I reviewed the patient's lab results. Labs: Laboratory Results - last 24 hr 04/15/25 04/15/25 09:50 19:48 WBC 8.1 RBC 3.69 L Hgb 12.0 Hct 33.9 L MCV 91.9 MCH 32.5 H MCHC 35.4 RDW Std Deviation 40.7 RDW Coeff of Lesli 12.0 Plt Count 257 MPV 10.3 Immature Gran % (Auto) 0.200 Neut % (Auto) 57.4 Lymph % (Auto) 33.8 [place] % (Auto) 6.0 Eos % (Auto) 2.1 Baso % (Auto) 0.5 Absolute Neuts (auto) 4.7 Absolute Lymphs (auto) 2.74 Nucleated RBC % 0 Platelet Estimate MOD DEC RBC Morphology NORM C+C Sodium 137 Potassium 4.0 Chloride 104 Carbon Dioxide 21.4 Anion Gap 11 BUN 10 Creatinine 0.84 Estim Creat Clear Calc 139.09 Est GFR (MDRD) Non-Af 93 BUN/Creatinine Ratio 12.4 Glucose 99 Calcium 8.8 Total Bilirubin 0.20 AST 20 ALT 14 Alkaline Phosphatase 44 Total Protein 5.9 Albumin 3.5 Globulin 2.5 Albumin/Globulin Ratio 1.4 Urine Color Yellow Urine Clarity Clear Urine pH 5.0 Ur Specific [place] 1.025 Urine Protein 15 H Urine Glucose (UA) Normal Urine Ketones 5 H Urine Occult Blood Negative Urine Nitrite Negative Urine Bilirubin Negative Urine Urobilinogen Normal Ur Leukocyte Esterase Negative Urine RBC 0 SEEN Urine WBC 0-5 SEEN Ur Squamous Epith Cells 0-5 SEEN Urine Bacteria 3+ Urine Mucus 0 SEEN Management Discussion w/another healthcare provider: [employer]inder[employer] Operator (Dr. Comfort Agee, ASSISTANT FLOOR COVERING PRINTER) Discharge Plan Triage Chief Complaint: Headache Other Complaint: Hypertension ED Provider: Erick Gibson Dx/Rx/DC Orders Clinical Impression: Hypertension affecting , Benign intracranial hypertension Instructions: ED Headache Unspecified, ED Hypertension, To Be Confirmed Prescriptions: No Action albuterol sulfate 90 mcg/actuation HFA aerosol inhaler 2 puff inhalation Q6H PRN Dulera 200-5 mcg/actuation HFA aerosol inhaler 2 puff inhalation BID PNV-DHA 27 mg iron-1 mg -300 mg capsule PO choline Capsule 110 mg PO QDAY labetalol 200 mg tablet 200 mg PO BID Qty: 60 2RF Primary Care Provider: Care Physician,No Primary Referrals: Comfort Agee MD [Med Staff - Active Staff, Obstetrics-Gynecology (OBGYN)]- 3-5 Days if not improving Care Physician,No Primary [Primary Care Provider, Medical] Activity Restrictions/Additional Instructions: Return to the emergency department with increased headache, new or worsening symptoms. Follow-up with your ASSISTANT FLOOR COVERING PRINTER and continue to keep a log of your blood pressures, checking it only a few times a day. Your OBG YN recommended continuing 200 mg of labetalol twice a day. Print Language: New Zealander Disposition Disposition: Home, Self Care What to do if you have Problems For any increased pain, shortness of breath, bleeding, nausea or vomiting, chestpain, or any unexpected problems, contact your Primary Care Provider. Call [facility] ([phone]) or report to the closest Emergency Room. Call 911 if necessary. 04/15/252110 <Electronically signed by Erick Gibson MD> Cosigner Signature (if applicable): CC: No Primary Care Physician ~ Signed [facility] Work Phone: 1(542) 832-203110-16-2025 [facility] [address], [address] [place] [id number] OFFICE VISIT Date of Service: 04/13/25 MR#: [id number] Acct: [id number] Name: CHERYL WOOD Rep #: [id number] : 1990 Provider: JUNG Alejandro Age/Sex: 34/F [place] [facility] [place]: Signed Intake Vital Signs 04/06/25 13:07 04/13/25 15:06 04/13/25 15:12 Height 5 ft 9 in 5 ft 9 in 5 ft 9 in Weight: 301 lb BMI 44.4 BP 132/82 H Intake Visit Reasons: 1wk BP Check *per Jackspooler Required: No Is patient in pain?: No Allergies minocycline Adverse Reaction (Severe, Verified 04/13/25 15:06) Hives Medications ?Medication ?Instructions ?Recorded ?Confirmed ?Type albuterol sulfate 90 mcg/actuation 2 puff inhalation Q 6H PRN 02/24/23 04/13/25 History aerosol inhaler mometasone-formoterol HFA 200 2 puff inhalation BID 04/13/25 History mcg-5 mcg/actuation aerosol inhaler (Dulera) choline 110 mg PO QDAY 03/07/2503/29 History multivitamin no.47-iron fum 27 cap PO 03/07/25 5 History mg-folate no.1 1 mg-dha 300 mg capsule (PNV-DHA) labetalol 200 mg tablet 200 mg PO BID #60 tabs 04/0604/13/25 Rx Last Menstrual Period: 12/29/24 Zika: Zika [...] 2 current occupational status: employed current occupation: [employer] current occupational exposures/hazards: No pets and animals: [...] physical activity do you participate in: none tamir/temple: None seatbelt use: always do you feel safe at home: Yes additional social history: [employer] work History 3 Elective abortions Hx Para 2 Spontaneous abortions Hx # Term Pregnancies Ectopic pregnancies Hx # Pregnancies Multiple births # of living children 2 Past Pregnancies Del. Date Name GA/Weeks Outcome Route Bth Weight Infant Gen Labor Lgth Anesthesia Del Locatn Provider FOB 06/15/15 Ellie 40 live - full term 8#9oz [facility] Nadine 27 live - 2#1oz Female general [facility] Delivery Date: 06/15/15 Last Updated by: [...] wk BP ch. Br US confirm FHT 04/13/25 -?-?-?-?-?-?-?-?-?-?-?-?- 15w 0d 301 lb 132/82 Negative -?-?-?-?-?-?-?-?-?-?-?-?- Negative -?-?-?-?-?-?-?-?-?-?-?-?- nurse visit for BP check today. will continue to monitor at visits nurse visit for BP check tobrian ay. will continue to monitor at visits. no concerns today ACOG First Trimester First Trimester: Desire for , Alcohol, Tobacco Cessation, Illicit/Recreational Drug/Substance Use, Intimate Partner Violence, Barriers to care, Unstable Housing, Communication Barriers, Environmental/Work Hazards, Anticipated Course of Care, Toxoplasmosis Precations, Use of Any med ications, Sexual activity, Exercise, Dental Care, Sauna/Hot tub use, Seat Belt use, Childbirth classes/Hospital facilities, Travel, Indications for Ultrasound and Screening for Aneuploidy; Discussed ROS Const Reports system reviewed and no additional complaints, except as documented Eyes Reports system reviewed and no additional complaints, except as documented ENT Reports system reviewed and no additional complaints, except as documented Card Reports system reviewed and no additional complaints, except as documented Resp Reports system reviewed and no additional complaints, except as documented GI Reports system reviewed and no additional complaints, except as documented, Denies nausea and Denies vomiting Reports system reviewed and no additional complaints, [...] and no additional complaints, except as documented Benji/Lymph Reports system reviewed and no additional complaints, except as documented Aller/Immun Reports system reviewed and no additional complaints, except as documented Exam Const General: cooperative, healthy appearing and no acute distress Orientation: alert, awake and oriented x3 Neck Neck: normal visual inspection and full ROM Resp Effort & Inspection: normal respiratory effort, able to speak in complete sentences and symmetric chest movement GI Inspection: normal to inspection Palpation: soft and other Other: gravid Skin General: no rashes or lesions noted Neuro General: patient alert, patient awake and patient oriented x3 Cognition: normal cognition Speech: speech normal Gait: normal gait Motor: muscle tone normal throughout Extrem General: normal to inspection and full ROM Psych Appearance: grossly normal Mental Status: mental status grossly normal Mood: congruent mood Affect: normal affect Speech and Movement: speech and movement normal Attitude: cooperative Thought Process: normal Thought Content: normal Judgment: judgment good Results POC Urinalysis 2 Dip (Clinic) Office Urine Glucose Negative Last Edit by Nidia Ordaz on 04/13/25 15 :12 Office Urine Protein Negative Last Edit by Nidia Ordaz on 04/13/25 15 :12 Coding Level of Care Code Off vis,est,level 3 Diagnoses Hypertension affecting in second trimester O16.2 Trimester: second trimester Advanced maternal age (AMA) in Supervision of high risk in second trimester O09.92 Trimester: second trimester 14 weeks gestation of Z3A.14 Weeks of gestation: 14 weeks Rh negative status during in second trimester [...] in second trimester, unspecified obesity type O99.212 Obesity type affecting : unspecified obesity Trimester: second trimester Benign intracranial hypertension G93.2 Assessment and Plan Assessment and Plan (1) Hypertension affecting : Status: Acute Qualifiers: Trimester: second trimester Qualified Code(s): O16.2 - Unspecified maternal hypertension, second trimester Comment: Labetalol. BP Ch 1 wk (2) Advanced maternal age (AMA) in : Status: Acute Comment: nipt LR (3) Supervision of high-risk : Status: Acute Qualifiers: Trimester: second trimester Qualified Code(s): O09.92 - Supervision of high risk , unspecified, second trimester Comment: PRR , LEIDY 10/05/25, PC Ellie Nadine( custody of 13yo nephew) THOMAS Walls (4) : Status: Acute Qualifiers: Weeks of gestation: 14 weeks Qualified Code(s): Z3A.14 - 14 weeks gestation of Comment: NIPT low risk. Horizon neg. (5) Rh negative status during : Status: Acute Qualifiers: Trimester: second trimester Qualified Code(s): O26.892 - Other specified related conditions, second trimester; Z67.91 - Unspecified blood type, Rh negative Comment: rhogam @ 28 wks, Given 03/22/25 for bleeding (6) Subchorionic hematoma: Status: Acute Qualifiers: Fetus number: single or unspecified fetus Trimester: second trimester Qualified Code(s): O41.8X20 -Other specified disorders of amniotic fluid and membranes, [...] (11) Obesity affecting : Status: Acute Qualifiers: Obesity type affecting : unspecified obesity Trimester: second trimester Qualified Code(s): O99.212 - Obesity complicating , second trimester Comment: HgbA1c (12) Benign intracranial hypertension: Status: Acute Comment: acetazolamide in the past. mfm consult. been over a year since she saw a neurologist Orders: Orders POC Urinalysis 2 Dip (Clinic) Today Plan Details Additional Comments: ACOG trimester education reviewed and updated. see problem list details for updated plan management information and see below for orders placed atthis visit. GA appropriate handout given. 04/13/25 1517 s CNM> Date _ Chaya Javon JUNG Cosigner Signature: Date (if applicable) CC: ~ [facility]10-16-2025 Progress note Author Chaya Alejandro [facility] Note Date/Time April 13, 2025 3 :17pm [facility] [address], [address] [place] [address] OFFICE VISIT Date of Service: 04/13/25 MR#: [id number] Acct: [id number] Name: CHERYL WOOD Rep #: [id number] : 1990 Provider: JUNG Alejandro Age/Sex: 34/F [place] [facility] [place]: Signed Intake Vital Signs 04/06/25 13:07 04/13/25 15:06 04/13/25 15:12 Height 5 ft 9 in 5 ft 9 in 5 ft 9 in Weight: 301 lb BMI 44.4 BP 132/82 H Intake Visit Reasons: 1wk BP Check *per Jackspooler Required: No Is patient in pain?: No Allergies minocycline Adverse Reaction (Severe, Verified 04/13/25 15:06) Hives Medications ?Medication ?Instructions ?Recorded ?Confirmed ?Type albuterol sulfate 90 mcg/actuation 2 puff inhalation Q 6H PRN 02/24/23 04/13/25 History aerosol inhaler mometasone-formoterol HFA 200 2 puff inhalation BID 04/13/25 History mcg-5 mcg/actuation aerosol inhaler (Dulera) choline 110 mg PO QDAY 03/07/2503/29 History multivitamin no.47-iron fum 27 cap PO 03/07/25 5 History mg-folate no.1 1 mg-dha 300 mg capsule (PNV-DHA) labetalol 200 mg tablet 200 mg PO BID #60 tabs 04/0604/13/25 Rx Last Menstrual Period: 12/29/24 Zika: Zika [...] 2 current occupational status: employed current occupation: [employer] current occupational exposures/hazards: No pets and animals: [...] physical activity do you participate in: none tamir/temple: None seatbelt use: always do you feel safe at home: Yes additional social history: [employer] work History 3 Elective abortions Hx Para 2 Spontaneous abortions Hx # Term Pregnancies Ectopic pregnancies Hx # Pregnancies Multiple births # of living children 2 Past Pregnancies Del. Date Name GA/Weeks Outcome Route Bth Weight Gen Labor Lgth Anesthesia Del Locatn Provider FOB 06/15/15 Ellie 40 live - full term 8#9oz Female epidural [facility] 12/30/17 Nadine 27 live - 2#1oz Female general [facility] Delivery Date: 06/15/15 Last Updated by: [...] wk BP ch. Br US confirm FHT 04/13/25 -?-?-?-?-?-?-?-?-?-?-?-?- 15w 0d 301 lb 132/82 Negative -?-?-?-?-?-?-?-?-?-?-?-?- Negative -?-?-?-?-?-?-?-?-?-?-?-?- nurse visit for BP check today. will continue to monitor at visits nurse visit for BP check tod ay. will continue to monitor at visits. no concerns today ACOG First Trimester First Trimester: Desire for [...] and no additional complaints, except as documented Eyes Reports system reviewed and no additional complaints, except as documented ENT Reports system reviewed and no additional complaints, except as documented Card Reports system reviewed and no additional complaints, except as documented Resp Reports system reviewed and no additional complaints, except as documented GI Reports system reviewed and no additional complaints, except as documented, Denies nausea and Denies vomiting Reports system reviewed and no additional complaints, [...] and no additional complaints, except as documented Benji/Lymph Reports system reviewed and no additional complaints, except as documented Aller/Immun Reports system reviewed and no additional complaints, except as documented Exam Const General: cooperative, healthy appearing and no acute distress Orientation: alert, awake and oriented x3 Neck Neck: normal visual inspection and full ROM Resp Effort & Inspection: normal respiratory effort, able to speak in complete sentences and symmetric chest movement GI Inspection: normal to inspection Palpation: soft and other Other: gravid Skin General: no rashes or lesions noted Neuro General: patient alert, patient awake and patient oriented x3 Cognition: normal cognition Speech: speech normal Gait: normal gait Motor: muscle tone normal throughout Extrem General: normal to inspection and full ROM Psych Appearance: grossly normal Mental Status: mental status grossly normal Mood: congruent mood Affect: normal affect Speech and Movement: speech and movement normal Attitude: cooperative Thought Process: normal Thought Content: normal Judgment: judgment good Results POC Urinalysis 2 Dip (Clinic) Office Urine Glucose Negative Last Edit by Nidia Ordaz on 04/13/25 15 :12 Office Urine Protein Negative Last Edit by Nidia Ordaz on 04/13/25 15 :12 Coding Level of Care Code Off vis,est,level 3 Diagnoses Hypertension affecting in second trimester O16.2 Trimester: second trimester Advanced maternal age (AMA) in Supervision of high risk in second trimester O09.92 Trimester: second trimester 14 weeks gestation of Z3A.14 Weeks of gestation: 14 weeks Rh negative status during in second trimester [...] in second trimester, unspecified obesity type O99.212 Obesity type affecting : unspecified obesity Trimester: second trimester Benign intracranial hypertension G93.2 Assessment and Plan Assessment and Plan (1) Hypertension affecting : Status: Acute Qualifiers: Trimester: second trimester Qualified Code(s): O16.2 - Unspecified maternal hypertension, second trimester Comment: Labetalol. BP Ch 1 wk (2) Advanced maternal age (AMA) in : Status: Acute Comment: nipt LR (3) Supervision of high-risk : Status: Acute Qualifiers: Trimester: second trimester Qualified Code(s): O09.92 - Supervision of high risk , unspecified, second trimester Comment: PRR , LEIDY 10/05/25, PC Nadine Argueta( custody of 13yo nephew) THOMAS Walls (4) : Status: Acute Qualifiers: Weeks of gestation: 14 weeks Qualified Code(s): Z3A.14 - 14 weeks gestation of Comment: NIPT low risk. Horizon neg. (5) Rh negative status during : Status: [...] of section: Status: Acute Comment: 2014 & 2018, plan RLTCS (10) Current in first trimester with history of placenta previa during prior : Status: Acute (11) Obesity affecting : Status: Acute Qualifiers: Obesity type affecting : unspecified obesity Trimester: second trimester Qualified Code(s): O99.212 - Obesity complicating , second trimester Comment: HgbA1c (12) Benign intracranial hypertension: Status: Acute Comment: acetazolamide in the past. mfm consult. been over a year since she saw a neurologist Orders: Orders POC Urinalysis 2 Dip (Clinic) Today Plan Details Additional Comments: ACOG trimester education reviewed and updated. see problem list details for updated plan management information and see below for orders placed at this visit. GA appropriate handout given. 04/13/25 1517 <Electronically signed by Chaya tam CNM> Date _ Chaya Alejandro CNM Cosigner Signature: Date (if applicable) CC: ~ [facility] Work Phone: 1(303) 788-616810-09-2025 [facility] [address] [place] [address], [address] [place] [id number] OFFICE VISIT Date of Service: 04/06/25 MR#: [id number] Acct: [id number] Name: CHERYL WOOD Rep #: [id number] : 1990 Provider: GONZÁLEZ Ibrahim Age/Sex: 34/F [place] [facility] [place] Signed Intake Vital Signs 03/07/25 16:01 03/22/25 14:43 04/06/25 13:07 Height 5 ft 9 in 5 ft 9 in 5 ft 9 in Weight: 297 lb 6 oz BMI 43.9 BP 142/82 H Intake Visit Reasons: 14wk ob Jackspooler Required: No Is patient in pain?: No [...] 2 current occupational status: employed current occupation: [employer] current occupational exposures/hazards: No pets and animals: [...] physical activity do you participate in: none tamir/temple: None seatbelt use: always do you feel safe at home: Yes additional social history: [employer] work History 3 Elective abortions Hx Para 2 Spontaneous abortions Hx # Term Pregnancies Ectopic pregnancies Hx # Pregnancies Multiple births # of living children 2 Past Pregnancies Del. Date Name GA/Weeks Outcome Route Bth Weight Infant Gen Labor Lgth Anesthesia Del Locatn Provider FOB 06/15/15 Wesn 40 live - full term 8#9oz Female epidural [place] [facility] Titi 12/30/17 Nadine 27 live - 2#1oz Female general [facility] Delivery Date: 06/15/15 Last Updated by: Haley Vazquez IOL, stcj, CS Delivery Date: 12/30/17 Last Updated by: [...] of Care, Toxoplasmosis Precations, Use of Any med ications, Sexual activity, Exercise, Dental Care, Sauna/Hot tub [...] second trimester Comment: PRR , LEIDY 10/05/25, Nadine Sanchez( custody of 13yo nephew) THOMAS Walls (2) [...] fetus Trimester: second trimester Qualified Code(s): O41.8X20 -Other specified disorders of amniotic fluid and membranes, [...] Continue routine care and follow up. 04/06/25 1350 s HEAD MEN'S TENNIS COACH HEAD MEN'S TENNIS COACH-C> Date _ Tiarra Ibrahim HEAD MEN'S TENNIS COACH HEAD MEN'S TENNIS COACH-C Cosigner Signature: Date (if applicable) CC: ~ [facility] [id number] Progress [facility] [address], [address] [place] [address] OFFICE VISIT Date of Service: 03/22/25 MR#: [id number] Acct: [id number] Name: CHERYL WOOD Rep #: [id number] : 1990 Provider: Dr. Sakina [place] DO Age/Sex: 34/F [place] [facility] [place] Signed with Addenda ADDENDUM by Nidia Ordaz on 03/22/25 at 1533 Office Procedure Documentation entered by Nidia Ordaz 03/22/25 15:33: Injections Is this a patient provided medication?: No Office Meds RhoGAM Ultra-Filtered PLUS 1,500 unit (300 mcg) intramuscular syringe Performing Provider: Mignon [place] DO Performing Location: [facility] Administered by: Nidia Ordaz on 03/22/25 15:31 Dose Route Admin Location Dispensed Lot Number Expiration Date Pack age NDC NDC It Network Engineer 1,500 unit IM Left Gluteal 1 ea [id number] 11/29/26 [id number] [employer] Date _ cc: ~* Signed ADDENDUM by [...] Psych mental status grossly normal 03/22/25 1531 e Julienne DO> Date _ Mignon [place] DO cc: ~* Signed Intake Vital Signs 03/07/25 16:01 03/22/25 14:43 Height 5 ft 9 in 5 ft 9 in Weight: 301 lb BMI 44.4 BP 124/79 H Intake Visit Reasons: 11wk6d ob *per Jackspooler Required: No Is patient in pain?: No [...] 2 current occupational status: employed current occupation: [employer] current occupational exposures/hazards: No pets and animals: [...] physical activity do you participate in: none tamir/temple: None seatbelt use: always do you feel safe at home: Yes additional social history: [employer] work History 3 Elective abortions Hx Para 2 Spontaneous abortions Hx # Term Pregnancies Ectopic pregnancies Hx # Pregnancies Multiple births # of living children 2 Past Pregnancies Del. Date Name GA/Weeks Outcome Route Bth Weight Infant Gen Labor Lgth Anes th esia Del Locatn Provider FOB 06/15/15 Adalynn 40 live - full term 8#9oz Female epidural [facility] 12/30/17 Nadine 27 live - 2#1oz Female general [facility] Delivery Date: 06/15/15 Last Updated by: [...] of Care, Toxoplasmosis Precations, Use of Any med ications, Sexual activity, Exercise, Dental Care, Sauna/Hot tub [...] ONCE 1 ea 0RF NS O26.899 - Otherspecified related conditions, unspecified trimester, Z67.91 - Unspecified blood type, Rh negative 03/22/25 1529 e Velde DO> Date _ Mignon [place] DO Macroxann Signature: Date (if applicable) CC: ~ [facility]09-24-2025 Progress note Author Mignon Robins [facility] Note Date/Time March 22, 2025 3:30pm [facility] [address], [address] [place] [address] OFFICE VISIT Date of Service: 03/22/25 MR#: [id number] Acct: [id number] Name: CHERYL WOOD Rep #: [id number] : 1990 Provider: Dr. Sakina [place] DO Age/Sex: 34/F [place] [facility] [place]: Signed with Addenda ADDENDUM by Nidia Ordaz on 03/22/25 at 1533 Office Procedure Documentation entered by Nidia Ordaz 03/22/25 15:33: Injections Is this a patient provided medication?: No Office Meds RhoGAM Ultra-Filtered PLUS 1,500 unit (300 mcg) intramuscular syringe Performing Provider: Mignon [place] DO Performing Location: [facility] Administered by: Nidia Ordaz on 03/22/25 15:31 Dose Route Admin Location Dispensed Lot Number Expiration Date Pack age NDC NDC It Network Engineer 1,500 unit IM Left Gluteal 1 ea [id number] 11/29/26 [id number] [employer] Date _ cc: ~* Signed ADDENDUM by [...] Nadine Argueta( custody of 13yo nephew) THOMAS Titi (3) Advanced maternal age (AMA) in [...] H Intake Visit Reasons: 11wk6d ob *per Jackspooler Required: No Is patient in pain?: No [...] 2 current occupational status: employed current occupation: [employer] current occupational exposures/hazards: No pets and animals: [...] physical activity do you participate in: none tamir/temple: None seatbelt use: always do you feel safe at home: Yes additional social history: [employer] work History 3 Elective abortions Hx Para 2 Spontaneous abortions Hx # Term Pregnancies Ectopic pregnancies Hx # Pregnancies Multiple births # of living children 2 Past Pregnancies Del. Date Name GA/Weeks Outcome Route Bth Weight Infant Gen Labor Lgth Anes th esia Del Locatn Provider FOB 06/15/15 Ellie 40 live - full term 8#9oz Female epidural [facility] 12/30/17 Nadine 27 live - 2#1oz Female general [facility] Delivery Date: 06/15/15 Last Updated by: [...] Cosigner Signature: Date (if applicable) CC: ~ [facility] Work Phone: 1(995) 545-935309-09-2025 Evaluation note* Diagnosis Onset Date Resolution Status Admit Date Advanced maternal age (AMA) in acute March 07, 2 025 3:44pm Anxiety acute March 07, 2025 3:44pm Benign intracranial hypertension acute March 07 2 025 3:44pm Current in first trimester with history of placenta previa during acute March 07, 2025 3:44pm Hx of section acute Se pt2024 3:44pm Hx of delivery, currently acute February 3:44pm Obesity affecting acute March 07, 2025 3:44pm acute March 07, 2025 3:44pm Rh negative status during acute March 07, 2 025 3:44pm Subchorionic hematoma acute Sep tem2024 3:44pm Supervision of high-risk acute March 07, [...] of high-risk acute March 22, 2025 2:43pm [facility] Work Phone: 1(970) 163-988109-09-2025 Evaluation note* Diagnosis Onset Date Resolution Status Admit Date Advanced maternal age (AMA) in acute March 07, 025 3:44pm Anxiety acute March 07, 2025 [...] Rh negative status during acute March 07, 025 3:44pm Subchorionic hematoma acute Sep 2024 [...] Supervision of high-risk acute April 06 1:02pm [facility] Work Phone: 1([phone]) 181-105809-09-2025 Evaluation note* Diagnosis Onset Date Resolution Status [...] 2 025 3:44pm Subchorionic hematoma acute Sep tember [...] 22, 2025 2:43pm Subchorionic hematoma acute Sep tem2024 2:43pm Supervision of high-risk acute March 22, [...] acute April 06 1:02pm Subchorionic hematoma acute Mar pepper2024 1:02pm Supervision of high-risk acute April 06 1:02pm Advanced maternal age (AMA) in acute April 13 3:01pm Anxiety acute April 13, 2025 3:01pm Benign intracranial hypertension acute April 13 3:01pm Current in first trimester with history of placenta previa during acute March 292024 3:01pm Hx of section acute Oc tob2024 3:01pm Hx of delivery, currently acute April 13, 2025 3:01pm Hypertension affecting acute April 13 3:01pm Obesity affecting acute April 13, 2025 3:01pm acute April 13, 2025 3:01pm Rh negative status during acute April 13 3:01pm Subchorionic hematoma acute Oct pepper2024 3:01pm Supervision of high-risk acute April 13 3:01pm [facility] Work Phone: [phone]) [phone] Evaluation note* Diagnosis Onset Date Resolution Status Admit Date Advanced maternal age (AMA) in acute March 07, 025 3:44pm Anxiety acute March 07, 2025 [...] acute April 06 1:02pm Anxiety acute April 06 025 1:02pm Benign intracranial hypertension acute April 06 1:02pm Current in first trimester with history of placenta previa during acute April 062024 1:02pm Hx of section acute Oc tober 2024 1:02pm Hx of delivery, currently acute April 06, 2025 1:02pm Hypertension affecting acute April 06 1:02pm Obesity affecting acute April 06, 2025 1:02pm acute April 06, 2 025 1:02pm Rh negative status during acute April 06 1:02pm Subchorionic hematoma acute Mar pepper2024 1:02pm Supervision of high-risk acute April 06 1:02pm Advanced maternal age (AMA) in acute April 13 3:01pm Anxiety acute April 13, 2025 3:01pm Benign intracranial hypertension acute April 13 3:01pm Current in first trimester with history of placenta previa during acute March 292024 3:01pm Hx of section acute Oc 2024 3:01pm Hx of delivery, currently acute April 13, 2025 3:01pm Hypertension affecting acute April 13 3:01pm Obesity affecting acute April 13, 2025 3:01pm acute April 13, 2025 3:01pm Rh negative status during acute April 13 3:01pm Subchorionic hematoma acute Mar pepper2024 3:01pm Supervision of high-risk acute April 13 3:01pm Advanced maternal age (AMA) in acute April 26 8:35am Anxiety acute April 26, 2025 8:35am Benign intracranial hypertension acute April 26 8:35am Current in first trimester with history of placenta previa during acute March 302024 8:35am Hx of section acute Oc tob2024 8:35am Hx of delivery, currently acute April 26, 2025 8:35am Hypertension affecting acute April 26 8:35am Obesity affecting acute April 26, 2025 8:35am acute April 26, 2025 8:35am Rh negative status during acute April 26 8:35am Subchorionic hematoma acute Mar pepper2024 8:35am Supervision of high-risk acute April 26 8:35am Advanced maternal age (AMA) in acute May 04 2:19pm Anxiety acute May 04, 2025 2:19pm Benign intracranial hypertension acute May 04 2:19pm Current in first trimester with history of placenta previa during acute May 04, 2025 2:19pm Hx of section acute No vember 2024 2:19pm Hx of delivery, currently acute May 04, 2025 2:19pm Hypertension affecting acute May 04 2:19pm Obesity affecting acute May 04, 2025 2:19pm acute May 04, 2025 2:19pm Rh negative status during acute May 04 2:19pm Subchorionic hematoma acute Apr 2:19pm Supervision of high-risk acute May 04 2:19pm [facility] Work Phone: 1(889) 346-758109-09-2025 [facility] [address] [place] [address], [address] [place] [address] OFFICE VISIT Date of Service: 03/07/25 MR#: [id number] Acct: [id number] Name: CHERYL WOOD Rep #: [id number] : 1990 Provider: Dr. Ketan Agee MD Age/Sex: 34/F [place] [facility] [place]: Signed Intake Vital Signs 03/04/25 16:28 03/07/25 15:56 03/07/25 16:01 Height 5 ft 9 in 5 ft 9 in 5 ft 9 in Weight: 296 lb 1 oz BMI 43.7 BP 136/88 H Intake Visit Reasons: NOB LMP 7/3 LEIDY 10/05 *Per Jackspooler Required: No Is patient in pain?: No Feel stressed/tense/nervous/anxious/difficulty sleeping: not at all Allergies minocycline Adverse Reaction (Severe, Verified 03/07/25 15:56) Hives Medications ?Medication ?Instructions ?Recorded ?Confirmed ?Type albuterol sulfate 90 mcg/actuation 2 puff inhalation Q 6H PRN 02/24/23 03/07/25 History aerosol inhaler mometasone-formoterol HFA 200 2 puff inhalation BID 03/07/25 History mcg-5 mcg/actuation aerosol inhaler (Dulera) choline 110 mg PO QDAY 03/07/25 0903/23 History multivitamin no.47-iron fum 27 cap PO 03/07/25 5 History mg-folate no.1 1 mg-dha 300 mg capsule (PNV-DHA) Last Menstrual Period: 12/29/24 Zika: Zika virus screening: Negative [facility] Medical History (Updated 03/07/25 @ 16:31 by [...] No current occupational status: employed current occupation: [employer] current occupational exposures/hazards: No pets and animals: [...] physical activity do you participate in: none tamir/temple: None seatbelt use: always do you feel safe at home: Yes additional social history: [employer] work History 3 Elective abortions Hx Para 2 Spontaneous abortions Hx # Term Pregnancies Ectopic pregnancies Hx # Pregnancies Multiple births # of living children 2 Past Pregnancies Del. Date Name GA/Weeks Outcome Route Bth Weight Infant Gen Labor Lgth Anesthesia Del Locatn Provider FOB 06/15/15 Ellie 40 live - full term 8#9oz Female epidural [facility] Seal Titi 12/30/17 Nadine 27 live - 2#1oz Female general [facility] Titi Delivery Date: 06/15/15 Last Updated by: Haley [...] (environmental adult onset asthma), Drug/latex allergies/reactions (minocycline), Desk Pens Assembler surgery (2 c sections), Operations/hospitalizations (right shoulder, [...] comfortable and no acute distress Orientation: alert [facility] Head: normal to inspection, normocephalic and atraumatic [...] Argueta( custody of 13yo nephew) BF Titi (3) : Status: Acute Qualifiers: Weeks [...] 03/07/25 1634 maryam FERRELL> Date _ Comfort Howard Signature: Date (if applicable) CC: ~ [facility]09-09-2025 Progress note Author Comfort Agee [facility] Note Date/Time March 07, 2025 4:34pm [facility] [address] [place] [address], [address] [place] [address] OFFICE VISIT Date of Service: 03/07/25 MR#: [id number] Acct: [id number] Name: CHERYL WOOD Rep #: [id number] : 1990 Provider: Dr. Ketan Agee MD Age/Sex: 34/F [place] [facility] [place]: Signed Intake Vital Signs 03/04/25 16:28 03/07/25 15:56 03/07/25 16:01 Height 5 ft 9 in 5 ft 9 in 5 ft 9 in Weight: 296 lb 1 oz BMI 43.7 BP 136/88 H Intake Visit Reasons: NOB LMP 7 LEIDY 10/05 *Per Jackspooler Required: No Is patient in pain?: No [...] Period: 12/29/24 Zika: Zika virus screening: Negative [facility] Medical History (Updated 03/07/25 @ 16:31 by [...] No current occupational status: employed current occupation: [employer] current occupational exposures/hazards: No pets and animals: [...] physical activity do you participate in: none tamir/temple: None seatbelt use: always do you feel safe at home: Yes additional social history: _[employer] work History 3 Elective abortions Hx Para 2 Spontaneous abortions Hx # Term Pregnancies Ectopic pregnancies Hx # Pregnancies Multiple births # of living children 2 Past Pregnancies Del. Date Name GA/Weeks Outcome Route Bth Weight Infant Gen Labor Lgth Anesthesia Del Locatn Provider FOB 06/15/15 Ellie 40 live - full term 8#9oz Female epidural [facility] Seals [place] 12/30/17 Nadine 27 live - 2#1oz Female general [facility] Delivery Date: 06/15/15 Last Updated by: Haley Vazquez IOL, stuck, CS Delivery Date: 12/30/17 Last Updated by: Haley Vazquez previa, cord prolapse, emergency c section HPI NOB LMP 12/29 LEIDY 10/05 *Per SM Details: CHERYL WOOD is a 34 year [...] (environmental adult onset asthma), Drug/latex allergies/reactions (minocycline), Desk Pens Assembler surgery (2 c sections), Operations/hospitalizations (right shoulder, [...] comfortable and no acute distress Orientation: alert [facility] Head: normal to inspection, normocephalic and atraumatic [...] of section: Status: Acute Comment: 2014 & 2018, plan RLTCS (9) Current in first trimester [...] Cosigner Signature: Date (if applicable) CC: ~ [facility] Work Phone: 1(405) 333-299409-06-2025 Discharge summary [facility] Medical Records Department [address] [place] [address] Emergency Department Summary 03/04/25 MR#: [id number] Acct: [id number] Name: CHERYL WOOD Omid Rep #:[id number] : 1990 34 From: Tremayne medranoett DO PCP: Care Physician,No Primary Status :REG [...] she has yet to follow-up with an ASSISTANT FLOOR COVERING PRINTER. States she called on Thursday to be established with [facility]. Patient states that [facility] showed a subchorionic hemat[facility]. She states on she had intercourse in which she had some light vaginalbleeding which has since resolved. She followed up with the care center who told her it was likely secondary to the subchorionic hematoma and to be established with an ASSISTANT FLOOR COVERING PRINTER. Patient states she was thinking about it [...] intact Psych: Cooperative, appropriate mood [facility] History Fatigue delivery delivered Home Medications ?Medication ?Instructions ?Recorded ?Last Taken ?Type Lactobacillus acidophilus 1 1,000 mmu cells PO DAILY 0 02/24/23 Unknown History billion cell capsule (Probiotic Gold Acidophilus) albuterol sulfate 90 mcg/actuation 2 puff inhalation Q 6H PRN 02/24/23 Unknown History aerosol inhaler flurbiprofen 100 mg tablet 100 mg PO TID PRN pain #90 tabs 08/29/23 Unknown Rx mometasone-formoterol HFA 200 2 puff [...] has yet to follow- up with an ASSISTANT FLOOR COVERING PRINTER. States she called on Thursday to be established with [facility]. Patient states that she has [facility] which showed a subchorionic hematoma. She states on she had intercourse in which she had some light vaginal bleeding which has since resolved. She followed up with the care center who told her it was likely secondary to the subchorionic hematoma and to be established with an ASSISTANT FLOOR COVERING PRINTER. Patient states she was thinking aboutit today [...] is asymptomatic. Per the current guidelines from thePal[place] College ofobstetricians and perioperative tech there is no longer recommended routine Rh testingand RhoGAM administration for our negative patients at less than 12 weeks gestation following an or loss. Our guidelines here at [facility] is 14 weeks. However given patient is Rh- and has had complications with previous pregnancies, I will reach out with [facility] ASSISTANT FLOOR COVERING PRINTER. I spoke with the nurse practitioner that [...] Primary [Primary Care Provider] - Print Language: New Zealander What to do if you have Problems For any increased pain, shortness of breath, bleeding, nausea or vomiting, chestpain, or any unexpected problems, contact your Primary Care Provider. Call [facility] ([phone]) or report tothe closest Emergency Room. Call 911 if necessary. 03/04/25 1807 Cosigner Signature (if applicable): CC: No Primary Care Physician ~ Signed [facility]09-06-2025 Discharge summary Author Tremayne Brice [facility] Note Date/Time March 04, 2025 6:07pm [facility] Medical Records Department [address] [place] [address] Emergency Department Summary 03/04/25 MR#: [id number] Acct: [id number] Name: CHERYL WOOD Rep #:[id number] : [...] she has yet to follow-up with an ASSISTANT FLOOR COVERING PRINTER. States she called on Thursday to be established with [facility]. Patient states that [facility]. She states on she had intercourse in which she had some light vaginal bleeding which has since resolved. She followed up with the care center who told her it was likely secondary to the subchorionic hematoma and to be established with an ASSISTANT FLOOR COVERING PRINTER. Patient states she was thinking about it [...] she has yet to follow-up with an ASSISTANT FLOOR COVERING PRINTER. States she called on Thursday to be established with [facility]. Patient states that [facility]. She states on she had intercourse in which she had some light vaginal bleeding which has since resolved. She followed up with the care center who told her it was likely secondary to the subchorionic hematoma and to be established with an ASSISTANT FLOOR COVERING PRINTER. Patient states she was thinking about it [...] asymptomatic. Per the current guidelines from the [place] [employer] ofob[employer]etricians and perioperative tech there is no longer recommended routine Rh testingand RhoGAM administration for our negative patients at less than 12 weeks gestation following an or loss. Our guidelines here at [facility] is 14 weeks. However given patient is Rh- and has had complications with previous pregnancies, I will reach out with [facility] ASSISTANT FLOOR COVERING PRINTER. I spoke with the nurse practitioner that [...] Primary [Primary Care Provider] - Print Language: New Zealander What to do if you have Problems For any increased pain, shortness of breath, bleeding, nausea or vomiting, chestpain, or any unexpected problems, contact your Primary Care Provider. Call [facility] ([phone]) or report to the closest Emergency Room. Call 911 if necessary. 03/04/25 1807 <Electronically signed by Tremayne Brice DO> Cosigner Signature (if applicable): CC: No Primary Care Physician ~ Signed [facility] Work Phone: 1(865) 309-108803-26-2025 Discharge summary [facility] Medical Records Department [address] [place] [address] Emergency Department Summary 09/21/24 MR#: [id number] Acct: [id number] Name: CHERYL WOOD Rep #:[id number] : [...] when her last tetanus shot was. [facility] Medical History Fatigue delivery delivered Home Medications [...] Patient follow commands that she was at [facility] year is 2024. Sensation grossly intact [...] Primary [Primary Care Provider] - Ebony Blood, HEAD MEN'S TENNIS COACH-C [[facility]] - Activity Restrictions/Additional Instructions: Follow schedule that you are given for the rabies vaccine series. Take antibiotics as prescribed ifyou develop surrounding redness or purulent drainage while on antibiotics you need to return to theemergency department. Follow-up your primary care physician or if you not having you referred to 1.Return with any other concerns. Your tetanus shot was updated today. Print Language: [place]alander Disposition Disposition: Home, Self Care What to do if you have Problems For any increased pain, shortness of breath, bleeding, nausea or vomiting, chestpain, or any unexpected problems, contact your Primary Care Provider. Call [facility] ([phone]) or report tothe closest Emergency Room. Call 911 if necessary. 09/21/242147 Cosigner Signature (if applicable): CC: No Primary Care Physician ~ Signed [facility]03-26-2025 Discharge summary Author Abhi Cooper [facility] Note Date/Time September 21, 2024 9:4 8pm [facility] Medical Records Department [address] [place] [address] Emergency Department Summary 09/21/24 MR#: [id number] Acct: [id number] Name: CHERYL WOOD Rep #:[id number] : [...] when her last tetanus shot was. [facility] Medical History Fatigue delivery delivered Home Medications [...] Patient follow commands that she was at [facility] year is 2024. Sensation grossly intact [...] Primary [Primary Care Provider] - Ebony Blood NP-C [[facility]] - Activity Restrictions/Additional Instructions: Follow schedule [...] tetanus shot was updated today. Print Language: New Zealander Disposition Disposition: Home, Self Care What to do if you have Problems For any increased pain, shortness of breath, bleeding, nausea or vomiting, chestpain, or any unexpected problems, contact your Primary Care Provider. Call [facility] ([phone]) or report to the closest Emergency Room. Call 911 if necessary. 09/21/242147 <Electronically signed by Abhi Cooper DO> Cosigner Signature (if applicable): CC: No Primary Care Physician ~ Signed [facility] Work Phone: 1(461) 755-381311-01-2024 History of Present illness Narrative* Shay Izquierdo MD - 04/29/2024 1:15 PM EDT Images from the original note were not included. [facility] NATHALIE [address] [place] [address] [place] [id number] Dept: [phone] Dept Chief Complaint Patient presents with New Patient Hip Pain Left Subjective History of Present Illness: Cheryl Wood is a 33 y.o. female who presents today for evaluation of left hip pain. 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 documented in this [facility]11-01-2024 Instructions* Patient Instructions* Shay Izquierdo MD [...] strength increases. documented in this [facility]10-25-2024 History of Present illness Narrative* LILLIAN Mcdermott CNP - 04/22/2024 1:00 PM EDT Images from the original note were not included. [facility] - [address] [place] [id number] Dept: [phone] Dept Cheryl Wood 1990 [id number] 04/22/2024 Problem List: Lumbar pain Lumbar radiculopathy, left Lumbar spondylosis Lumbar degenerative disc disease Left hip pain (M54.50) Lumbar pain (M54.16) Lumbar radiculopathy (M47.816) Lumbar spondylosis (M51.362) Degeneration of intervertebral disc of lumbar region with discogenic back pain and lower extremity pain (M25.552) Left hip pain Chief Complaint Patient presents with 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 HPI: Cheryl is a 33 [...] week, when she went to open a LEAFER basement door, and was "stuck." Symptoms are moderately affecting their quality of [...] No Blood thinning medications: none 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, 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 Is this [...] MRI head and LP- ophtho workup at [facility] Rh incompatibility Smoker socially Past Surgical [...] file Social History Narrative Single, live in [place] has 2 dtrs and raising Nephew , occasional smoker, no ETOH use, 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 Overall Financial Resource Strain (CARDIA) Difficulty of Paying Living Expenses: Not hard at all Food Insecurity: No Food Insecurity (03/21/2022) Received from [facility] Hunger Vital Sign Worried About Running Out of Food in the Last Year: Never true Ran Out of Food in the Last Year: Never true Transportation Needs: No Transportation Needs (03/21/2022) Received from [facility] [employer] [facility] PRAPARE - Transportation Lack of Transportation (Medical): No Lack of Transportation (Non-Medical): No Physical Activity: Inactive (03/21/2022) Received from [facility] Exercise Vital Sign Days of Exercise per Week: 0 days Minutes of Exercise per Session: 0 min Stress: No Stress Concern Present (03/21/2022) Received from [facility] [employer] [facility] - Occupational Stress Questionnaire Feeling of Stress : Only a little Social Connections: Moderately Isolated (03/21/2022) Received from [facility] [employer] [facility] Social Connection and Isolation Panel [NHANES] Frequency of Communication with Friends and Family: More than three times a week Frequency of Social Gatherings with Friends and Family: Once a week Attends Denominational Services: Never Active Member of Clubs or Organizations: No Attends Club or Organization Meetings: Never Marital Status: Living with partner Intimate Partner Violence: Not At Risk (03/21/2022) Received from [facility] [employer] [facility] Humiliation, Afraid, Rape, and Kick questionnaire Fear of Current or Ex-Partner: No Emotionally Abused: No Physically Abused: No Sexually Abused: No Housing Stability: Not on file Family History Problem Relation Name Age of Onset No Known Problems Mother Gael More (BULLET LUBRICATING MACHINE OPERATOR at [facility] [employer]) Heart disease Father Sae COPD Father [...] EXAM BP 129/80 Pulse 72 Ht 5' 9" (1.753 m) Wt 297 lb (135 kg) [...] claudication. I had a discussion with Cheryl Wood about her symptoms. We independently reviewed [...] The conservative management includes medications, injections, exercise, cardiac care unit nurse, acupuncture, massage therapy, and phys ical therapy. [...] CNP 04/22/2024 at 1:45 PM Dictated using [employer] Version 2.4 Proof read however unrecognized voice recognition errors may have occurred documented in this [facility]10-25-2024 Instructions* Patient Instructions* Mignon Szymanski ATC - 04/22/2024 1:00 PM EDT Images from the original note were not included. [facility] at [address] [place] [address] Call central scheduling to schedule new patient appointment [phone] documented in this [facility]10-19-2024 Emergency department Note* Laura Mack RN - 04/16/2024 6:09 PM EDT Clarified with Gissel LUNDBERG that 60mg toradol to be given and dosage was verified Laura Mack RN 04/16/241809 [facility]55-06-3194 Emergency department Note* Laura Mack RN - 04/16/2024 6:09 PM EDT Clarified with Gissel LUNDBERG that 60mg toradol to be given and dosage was verified Laura Mack RN 04/16/241809 * Gissel Hernandez PA-C - 04/16/2024 5:33 PM EDT [facility] ED eMERGENCY dEPARTMENT eNCOUnter Pt Name: [...] retention. No saddle paresthesias. She tried some szei-oau-uuddeej medications with no relief of her symptoms. 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 Overall Financial Resource Strain (CARDIA) Difficulty of Paying Living Expenses: Not hard at all Food Insecurity: No Food Insecurity (03/21/2022) Re[facility] from [facility] Hunger Vital Sign Worried About Running Out of Food in the Last Year: Never true Ran Out of Food in the Last Year: Never true Transportation Needs: No Transportation Needs (03/21/2022) Received from [facility] PRAPARE - Transportation Lack of Transportation (Medical): No Lack of Transportation (Non-Medical): No Physical Activity: Inactive (03/21/2022) Received from [facility] Exercise Vital Sign Days of Exercise per Week: 0 days Minutes of Exercise per Session: 0 min Stress: No Stress Concern Present (03/21/2022) Received from [facility] [place] [facility] [employer] - Occupational Stress Questionnaire Feeling of Stress : Only a little Social Connections: Moderately Isolated (03/21/2022) Received from [facility] Social Connection and Isolation Panel [NHANES] Frequency of Communication with Friends and Family: More than three times a week Frequency of Social Gatherings with Friends and Family: Once a week Attends Denominational Services: Never Active Member of Clubs or Organizations: No Attends Club or Organization Meetings: Never Marital Status: Living with partner Intimate Partner Violence: Not At Risk (03/21/2022) Received from [facility] Humiliation, Afraid, Rape, and Kick questionnaire Fear of Current or Ex-Partner: No Emotionally Abused: No Physically Abused: No Sexually Abused: No SCREENINGS PHYSICAL EXAM (5+ for level 4, 8+ for level 5) @MEHRANVSAnel@ Physical Exam Vitals and nursing note reviewed. [...] mg (60 mg IntraMUSCular Given 04/16/24 180) orphenadrine (Norflex) injection 60 mg (60 mg [...] excessive physical activity. She can follow-up with [facility]. She can return [...] sepsis, or septic shock (If yes use ".sepsiscoremeasure"): No FINAL IMPRESSION 1. Acute low back pain with sciatica, sciatica laterality unspecified, unspecified back pain laterality DISPOSITION/PLAN DISPOSITION Discharge 04/16/2024 06:01:44 PM PATIENT REFERRED TO: [facility] [address] [address] DISCHARGE MEDICATIONS: Discharge Medication List [...] Starting 04/16/2024, Until Thu04/26/2024 at 2359, Normal @[facility]([id number]:LAST:1)@ (Please note: Portions of this note were completed with a voice recognition program. Efforts were made to edit thedictations but occasionally words and phrases are mis-transcribed.) Form [id number] Gissel Hernandez PA-C (electronically signed) Emergency Medicine Provider Gissle Hernandez PA-C 04/16/241958 * Laura Mack RN - 04/16/2024 5:33 PM EDT Pt c.o lower back pain radiating down L leg, states the pain worsened when she opened a door today documented in this [facility] HospitalNtvual17-88-8731 Emergency department Triage note* Laura Mack RN - 04/16/2024 5:33 PM EDT Pt c.o lower back pain radiating down L leg, states the pain worsened when she opened a door today [id number] Physician Emergency department Note* Gissel Hernandez PA-C - 04/16/2024 5:33 PM EDT [facility] ED eMERGENCY dEPARTMENT eNCOUnter Pt Name: [...] retention. No saddle paresthesias. She tried some ggzz-zxj-rdanaqx medications with no relief of her symptoms. 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 Overall Financial Resource Strain ([facility]) Difficulty of Paying Living Expenses: Not hard at all Food Insecurity: No Food Insecurity (03/21/2022) Received from [facility] [employer] [facility] Hunger Vital Sign Worried About Running Out of Food in the Last Year: Never true Ran Out of Food in the Last Year: Never true Transportation Needs: No Transportation Needs (03/21/2022) Received from [facility] [employer] [facility] PRAPARE - Transportation Lack of Transportation (Medical): No Lack of Transportation (Non-Medical): No Physical Activity: Inactive (03/21/2022) Received from [facility] Exercise Vital Sign Days of Exercise per Week: 0 days Minutes of Exercise per Session: 0 min Stress: No Stress Concern Present (03/21/2022) Received from [facility] [employer] [place] [facility] [employer] - Occupational Stress Questionnaire Feeling of Stress : Only a little Social Connections: Moderately Isolated (03/21/2022) Received from [employer] [facility] [employer] [facility] Social Connection and Isolation Panel [NHANES] Frequency of Communication with Friends and Family: More than three times a week Frequency of Social Gatherings with Friends and Family: Once a week Attends Denominational Services: Never Active Member of Clubs or Organizations: No Attends Club or Organization Meetings: Never Marital Status: Living with partner Intimate Partner Violence: Not At Risk (03/21/2022) Received from [facility] [employer] [facility] [employer] Humiliation, Afraid, Rape, and Kick questionnaire Fear [...] mg (60 mg IntraMUSCular Given 04/16/24 180) orphenadrine (Norflex) injection 60 mg (60 mg [...] excessive physical activity. She can follow-up with [facility]. She can return [...] sepsis, or septic shock (If yes use ".sepsiscoremeasure"): No FINAL IMPRESSION 1. Acute low back pain with sciatica, sciatica laterality unspecified, unspecified back pain laterality DISPOSITION/PLAN DISPOSITION Discharge 04/16/2024 06:01:44 PM PATIENT REFERRED TO: [facility] - [place] [address] [facility] [address] DISCHARGE MEDICATIONS: Discharge Medication List as [...] Starting 04/16/2024, Until Thu04/26/2024 at 2359, Normal @[facility]([id number]:LAST:1)@ (Please note: Portions of this note were completed with a voice recognition program. Efforts were made to edit thedictations but occasionally words and phrases are mis-transcribed.) Form [id number] Gissel Hernandez PA-C (electronically signed) Emergency Medicine Provider Gissel Hernandez PA-C 04/16/241958 [facility]Jqjisb86-40-4200 History of Present illness Narrative* Wilfredo Fischer, - 02/06/2023 11:00 AM EDT Images from the original note were not included. [facility] [address] [facility] [address] Visit type: Established Patient Reason for Visit: [...] scheduled to see Neurologist, Dr. Garvey in [place] in about 2 weeks. Review of Systems [...] Onset No Known Problems Mother Gael More (BULLET LUBRICATING MACHINE OPERATOR at [facility]) Heart disease Father Sae COPD Father [...] 36.1 C (96.9 F) (Temporal) Ht 5' 9" (1.753 m) Wt 297 lb (135 kg) SpO2 97% BMI 43.86 kg/m Physical Exam her exam is unchanged. No neck masses thyroid lesions or carotid bruits. No adenopathy. All cranial nerves are normal. Pupils equal. Extraocular muscles are intact. Negative Spurling's.Entire upper and lower extremity strength is normal. No fasciculations. No Judith's or Babinski. Toes downgoing and no clonus. Yyzxyj-zb-aqqc, tandem and Romberg testing is normal. Recheck blood pressure slightly elevated. Reviewed multiple studies including cervical MRI. EMG of the upper or lower extremities. Lumbar back x-rays. Reviewed lab work. documented in this [facility]07-06-2023 Telephone encounter Note* Telephone Encounter - Jane AntonSejal Mckennager - 01/01/2023 3:04 PM EDT [employer] new tracking # [id number] Auth # [id number] good until 01/31/23. Pt advised and is going to schedule herself [id number] Miscellaneous Notes* Telephone Encounter - Jane MSejal Downs - 01/01/2023 3:04 PM EDT [employer] new tracking # [id number] Auth # [id number] good until 01/31/23. Pt advised and is going to schedule herself * Telephone Encounter - Fe Mclean - 01/01/2023 9:08 AM EDT Name of caller: Susy Contact phone number: [phone] Relationship to Patient: patient Provider: Dr. Fischer Practice: [facility] Chief Complaint/Reason for Call: The [...] return their call: No documented in this [facility]07-06-2023 Telephone encounter Note* Telephone Encounter - Fe Mclean - 01/01/2023 9:08 AM EDT Name of caller: Susy Contact phone number: [phone] Relationship to Patient: patient Provider: Dr. Fischer Practice: [facility] Chief Complaint/Reason for Call: The [...] business hours to return their call: No [id number] Telephone encounter Note* Telephone Encounter - Shannon Butt MA - 12/31/2022 12:31 PM EDT Rx loaded [id number] Miscellaneous Notes* Telephone Encounter - Shannon Butt MA - 12/31/2022 12:31 PM EDT Rx loaded documented in this encounterSMercer County Community HospitalLgynvk57-98-5346 Note* Addendum Note - Briseyda Dubois - 12/01/2022 3:51 PM EDTAddended by: BRISEYDA DUBOIS on: 12/01/2022 03:51 PM Modules accepted: Orders [facility]Wbpsqw18-23-1635 Miscellaneous Notes* Addendum Note - Briseyda Dubois [...] MRI of cervical spine. documented in this [place] [id number] Telephone encounter Note* Telephone Encounter - Kacey Means - 10/20/2022 12:30 PM EDT Orders pended for doctor signature [id number] Miscellaneous Notes* Telephone Encounter - Kacey Means - 10/20/2022 12:30 PM EDT Orders pended for doctor signature * Telephone Encounter - Kacey Means - 10/20/2022 12:25 PM EDT ----- Message from Shannon Butt MA sent at 10/20/2022 11:21 AM EDT ----- Patient was given the number to schedule with neuro patient would like the MRI of cervical spine. documented in this [place] [id number] Telephone encounter Note* Telephone Encounter - Kacey Means - 10/20/2022 12:25 PM EDT ----- Message from Shannon Butt MA sent at 10/20/2022 11:21 AM EDT ----- Patient was given the number to schedule with neuro patient would like the MRI of cervical spine. [address]mosgs98-62-2870 Telephone encounter Note* Telephone Encounter - Briseyda Dubois - 10/09/2022 10:05 AM EDT Orders pended for doctor's signature [id number] Miscellaneous Notes* Telephone Encounter - Briseyda Dubois - 10/09/2022 10:05 AM EDT Orders pended for doctor's signature * Telephone Encounter - Briseyda Dubois - 10/09/2022 10:03 AM EDT ----- Message from Wilfredo Viera DO Amado sent at 10/07/2022 9:56 PM [...] exams if she agrees. documented in this encounterSMercer County Community HospitalFgqffc69-77-2318 Telephone encounter Note* Telephone Encounter - Briseyda Dubois - 10/09/2022 10:03 AM EDT ----- Message from Wilfredo Maximiliano DO Amado [...] her. Schedule those exams if she agrees. [facility]Gbwpzi72-49-2954 Telephone encounter Note* Telephone Encounter - Briseyda Dubois - 08/05/2022 12:29 PM EST Referral pended for dx and doctor's signature [id number] Miscellaneous Notes* Telephone Encounter - Briseyda Dubois - 08/05/2022 12:29 PM EST Referral pended for dx and doctor's signature * Telephone Encounter - Wilfredo Fischer DO - 08/03/2022 3:38 PM EST Need list of neurologist this patient may consult documented in this encounterSMercer County Community HospitalEztayj52-43-3994 Telephone encounter Note* Telephone Encounter - Wilfredo Fischer DO - 08/03/2022 3:38 PM EST Need list of neurologist this patient may consult [id number] History of Present illness Narrative* Wilfredo Fischer DO - 08/01/2022 8:40 AM EST Images from the original note were not included. [address] [id number] Visit type: Established Patient Reason for Visit: [...] Onset No Known Problems Mother Gael More (BULLET LUBRICATING MACHINE OPERATOR at [facility]) Heart disease Father Sae COPD Father [...] 36.2 C (97.1 F) (Temporal) Ht 5' 9" (1.753 m) Wt 298 lb (135 kg) [...] is normal. documented in this [facility]01-10-2023 Telephone encounter Note* Telephone Encounter - Leah Leslie - 07/08/2022 2:23 PM EST Name of caller: Cheryl Contact phone number: [phone] Relationship to Patient: patient Provider: Dr. Fischer Practice: [facility] Chief Complaint/Reason for Call: Patient calling in stating that she missed a call from the office.No messages seen in chart. Please Advise. Best time of day caller can be reached: ANY Patient advised that office/PCP has 24-48 business hours to return their call: Yes [id number] Miscellaneous Notes* Telephone Encounter - Leah Leslie - 07/08/2022 2:23 PM EST Name of caller: Cheryl Contact phone number: [phone] Relationship to Patient: patient Provider: Dr. Fischer Practice: [facility] Chief Complaint/Reason for Call: Patient calling in stating that she missed a call from the office.No messages seen in chart. Please Advise. Best time of day caller can be reached: ANY Patient advised that office/PCP has 24-48 business hours to return their call: Yes documented in this [facility]10-08-2021 NoteHNO ID: [id number] Author: Ayan Sadler DO Service: ? Author [...] Ayan Sadler DO April 05, 2021 8:56 [facility] Evaluation note* Diagnosis Instability of right shoulder joint Other joint derangement, not elsewhere classified, shoulder region [facility] Evaluation note* Diagnosis Mouth pain- Primary Other and unspecified diseases of the oral soft tissues Throat pain documented [facility] Work Phone: Evaluation note* Diagnosis Cough documented in this encounter [facility] Work Phone: Evaluation note* Diagnosis Paresthesia of upper extremity documented in this encounter [facility]* Diagnosis Lumbar radiculopathy, chronic documented in this encounter [facility]* Diagnosis Lumbar radiculopathy, chronic documented in this encounter [facility]* Diagnosis Paresthesia of upper extremity Abnormal NCS (nerve conduction studies) documented in this encounter [facility]* Diagnosis Anxiety- Primary Anxiety state, unspecified documented in this encounter [facility]* Diagnosis Essential hypertension- Primary Unspecified essential hypertension Idiopathic neuropathy Other specified idiopathic peripheral neuropathy documented in this encounter [facility] note* Diagnosis Onset Date Resolution Status Benign intracranial hypertension acute Fibromyalgia acute Headache acute Hypersomnia acute Polyneuropathy acute [facility] Work Phone: Evaluation note* Diagnosis Onset Date Resolution Status Hypersomnia acute Polyneuropathy acute Fatigue chronic Encounter for procedure none active Cellulitis and abscess of foot acute Fatigue chronic Fatigue chronic Benign intracranial hypertension acute Fibromyalgia acute Headache acute Hypersomnia acute [facility] Work Phone: Evaluation note* Diagnosis Acute low back pain with sciatica, sciatica laterality unspecified, unspecified back pain laterality- Primary [facility]* Diagnosis Lumbar pain- Primary Lumbago Lumbar radiculopathy Thoracic or lumbosacral neuritis or radiculitis, unspecified Lumbar spondylosis Lumbosacral spondylosis without myelopathy Degeneration of intervertebral disc of lumbar region with discogenic back pain and lower extremity pain Left hip pain Pain in joint, pelvic region and thigh documented in this encounter [facility] note* Diagnosis Tear of left acetabular labrum, initial encounter- Primary Left hip pain Pain in joint, pelvic region and thigh Tendinopathy of gluteus medius documented in this encounter [facility]* Diagnosis Left hip pain Pain in joint, pelvic region and thigh documented in this encounter [facility]* Diagnosis Tactile hypesthesia- Primary Disturbance of skin sensation Lumbar radiculopathy Thoracic or lumbosacral neuritis or radiculitis, unspecified documented in this encounter [facility] note* Diagnosis Cough, unspecified- Primary documented [facility] HealthEvaluation note* Diagnosis Cough, unspecified- Primary documented in this encounter [facility] HealthEvaluation note* Diagnosis Tactile hypesthesia Disturbance of skin sensation Lumbar radiculopathy Thoracic or lumbosacral neuritis or radiculitis, unspecified Bilateral hip pain Pain in joint, pelvic region and thigh documented in this encounter [facility] HealthEvaluation note* Diagnosis Lumbar radiculopathy, chronic- Primary documented in this encounter [facility] HealthEvaluation note* Diagnosis Lumbar radiculopathy, chronic- Primary Paresthesia of upper extremity Class 3 severe obesity due to excess calories with serious comorbidity and body mass index (BMI) of 40.0 to 44.9 in adult (HCC) documented [facility] noteNo assessment information availableWWright-[facility] Work Phone: Evaluation note* Diagnosis [...] Hidradenitis suppurativa inactive March 07, 2025 3:44pm [facility] Work Phone: Hospital Discharge instructions* Attachments The following attachments cannot be sent through Care Everywhere. * Sore Throat ([place] Zealander) documented in this [facility] Work Phone: Hospital Discharge instructions* Attachments The following attachments cannot be sent through Care Everywhere. * Sciatica Discharge Instructions ([place]) * Sciatica Exercises ([place]) [facility] Additional Instructions Follow schedule that you are given for the rabies vaccine series. Take antibiotics as prescribed if you develop surrounding redness or purulent drainage while on antibiotics you need to return to the emergency department. Follow-up your primary care physician or if you not having you referred to 1. Return with any other concerns. Your tetanus shot was updated today.[facility] Work Phone: Hospital Discharge instructionsAdditional Instructions Follow-up with [place] [facility]LOOR COVERING PRINTER. Call to make an appointment if they do not call you. Return back to the ED if symptoms change or worsen.[facility] Work Phone: Hospital Discharge instructionsAdditional Instructions Return to the emergency department with increased headache, new or worsening symptoms. Follow-up with your ASSISTANT FLOOR COVERING PRINTER and continue to keep a log of your blood pressures, checking it only a few times a day. Your OBG YN recommended continuing 200 mg of labetalol twice a day.[facility] Work Phone: Progress note Author Tiarra Ibrahim [facility] Note Date/Time April 06, 2025 1: 31pm [facility] [address] [place] [address], [address] [place] [address] OFFICE VISIT Date of Service: 04/06/25 MR#: [id number] Acct: [id number] Name: CHERYL WOOD Rep #: [id number] : 1990 Provider: GONZÁLEZ Ibrhaim Age/Sex: 34/F Location: [facility] Status: Signed Intake Vital Signs 03/07/25 16:01 03/22/25 14:43 04/06/25 13:07 Height 5 ft 9 in 5 ft 9 in 5 ft 9 in Weight: 297 lb 6 oz BMI 43.9 BP 142/82 H Intake Visit Reasons: 14wk ob Jackspooler Required: No Is patient in pain?: No Allergies minocycline Adverse Reaction (Severe, Verified 04/06/25 13:04) Hives Medications ?Medication ?Instructions ?Recorded ?Confirmed ?Type albuterol sulfate 90 mcg/actuation 2 puff inhalation Q 6H PRN 02/24/23 04/06/25 History aerosol inhaler mometasone-formoterol HFA 200 2 puff inhalation BID 04/06/25 History mcg-5 mcg/actuation aerosol inhaler (Dulera) choline 110 mg PO QDAY 03/07/25 10/03/23 History multivitamin no.47-iron fum 27 cap PO [...] 2 current occupational status: employed current occupation: [employer] current occupational exposures/hazards: No pets and animals: [...] physical activity do you participate in: none tamir/temple: None seatbelt use: always do you feel safe at home: Yes additional social history: [employer] work History 3 Elective abortions Hx Para 2 Spontaneous abortions Hx # Term Pregnancies Ectopic pregnancies Hx # Pregnancies Multiple births # of living children 2 Past Pregnancies Del. Date Name GA/Weeks Outcome Route Bth Weight Gen Labor Lgth Anesthesia Del Locatn Provider FOB 06/15/15 Adalynn 40 live - full term 8#9oz Female epidural [facility] Titi 12/30/17 Nadine 27 live - 2#1oz Female general [facility] Titi Delivery Date: 06/15/15 Last Updated by: Haley [...] second trimester Comment: PRR , LEIDY 10/05/25, Nadine Sanchez( custody of 13yo nephew) THOMAS Walls (2) [...] (9) Hx of section: Status: Acute Comment: 2015 & 2018, plan RLTCS (10) Current in first trimester [...] Continue routine care and follow up. 04/06/25 1350 <Electronically signed by Tiarra tam HEAD MEN'S TENNIS COACH HEAD MEN'S TENNIS COACH-C> Date _ Tiarra Ibrahim [employer] M[employer]-C Cosigner Signature: Date (if applicable) CC: ~ [place] [facility] Work Phone: Reason for referral (narrative)* Consultation (Routine) - Pending Review Specialty Diagnoses / Procedures Referred By Nasra cerna Referred To Contact Orthopedic Surgery Diagnoses Acute low back pain with sciatica, sciatica laterality unspecified, unspecified back pain laterality Gissel Hernandez, PA-C [address] [place] [address] [facility] [address] [place] [address] Referral ID Status Reason Start Date Expiration Date Visits Requested Visits Authorized [id number] Pending Review Specialty Services Required 4 04/16/2025 1 1 Jodee Lau for referral (narrative)* Consultation (Routine) - Pending Review Specialty Diagnoses / Procedures Referred By Nasra t Referred To Contact Neurology Diagnoses Lumbar radiculopathy, chronic Procedures CT OFFICE/OUTPATIENT NEW HIGH MDM 60-74 MINUTES Wilfredo Fischer DO [address] [place] [address] Herberth Steele MD [address] [place] [address] Referral ID Status Reason Start Date Expiration Date Visits Requested Visits Authorized [id number] Pending Review Specialty Services Required 08/05/2022 08/05/2023 1 1 Jodee Lau for referral (narrative)No reason for referral information availableWWright-[facility] Work Phone: Summary Purpose Family History No [...] FoundDocuments on File Type Date Recorded Patient Registered Veterinary Technician Expl anation ACP-Advance Directive ACP-Power of Spiritual Counselor Latest Code Status on File Code Status Date Activated Date Inactivated Comments Full Code 12/30/2017 11:01 PM 01/01/2018 2:47 PM Full Code 12/04/2017 11:48 PM 12/30/2017 11:01 PM Documents on File Type Date Recorded 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 No September 21, 2024 7:12pm Advance Directive Response Recorded Date/ Time Do you have a Healthcare Power of Spiritual Counselor? No March 04, 2025 4:58pm Advance Directive Response Recorded Date/ Time Do you have a Healthcare Power of Spiritual Counselor? No March 04, 2025 4:58pm Do you have a Healthcare Power of Spiritual Counselor? No April 15, 2025 7:12pm Advance Directive Response Recorded Date/ Time Do you have a Healthcare Power of Spiritual Counselor? No March 04, 2025 3:58pm Do you have a Healthcare Power of Spiritual Counselor? No April 15, 2025 6:12pm Reason for Referral Status Reason Specialty Diagnoses / Procedures Referred By Contact Referred To Contact Open Specialty Services Required Orthopedic Surgery Diagnoses Acute pain of right shoulder Niurka Rivas MD [address] [place] [address] [facility] [address] [address] [place] [address] Scheduling Instructions [facility] Orthopedics - [place] [address] [place] [address] Status Reason Specialty Diagnoses / Procedures Referre d By Contact Referred To Contact Closed Radiology Diagnoses Instability of right shoulder joint Procedures XR SHOULDER ARTHROGRAM RIGHT S&I Pinky Romreo MD [address] [place] [address] [place] [address] Status Reason Specialty Diagnoses / Procedures Referred By Contact Referred To Contact Open Specialty Services Required Otolaryngology Diagnoses Mouth pain Throat pain [place], [employer]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 [address] Referral ID Status Reason Start Date Expiration Date V isits Requested Visits Authorized [id number] Incomplete 10/09/2022 04/07/2023 1 1 Specialty Diagnoses / Procedures Referred By Contac t Referred To Contact Radiology Diagnoses Lumbar radiculopathy, chronic Procedures MR cervical spine wo contrast Wilfredo Fischer F, DO [address] [place] [address] Referral ID Status Reason Start Date Expiration Date V isits Requested Visits Authorized [id number] Pending Review 10/20/2022 04/18/2023 1 1 Specialty Diagnoses / Procedures Referred By Contac t Referred To Contact Radiology Diagnoses Paresthesia of upper extremity Abnormal NCS (nerve conduction studies) Procedures MR cervical spine wo contrast Wilfredo Fischer F, DO [address] [place] [address] Referral ID Status Reason Start Date Expiration Date V isits Requested Visits Authorized [id number] Authorized 11/18/2022 05/17/2023 1 1 Specialty Diagnoses / Procedures Referred By Contac t Referred To Contact Diagnoses Cough, unspecified Procedures Complete PFT pre and post bronchodilator Wilfredo Fischer F, DO [address] [place] [address] Referral ID Status Reason Start Date Expiration Date V isits Requested Visits Authorized [id number] Incomplete 04/17/2022 10/14/2022 1 1 Discharge Instructions [...] sent through Care Everywhere. * Shoulder Sprain ([place]) documented in this encounter Assessments Diagnosis Acute [...] 4:26pm NOB LMP 12/29 LEIDY 10/05 *Per February 3:44pm Reason for Visit Admit Date Advanced maternal age (AMA) in March 07, 2025 3:44pm Anxiety March 07, 2025 3:44pm Benign intracranial hypertension Septemb 2024 3:44pm Current in first t rimester with history of placenta previa during March 07, 2025 3:44pm Hx of section March 07 3:44pm Hx of delivery, currently pregna nt March 07, 2025 3:44pm Obesity affecting February 3:44pm March 07, 2025 3:44pm Rh negative status during [facility] 2024 3:44pm Subchorionic hematoma March 07 3:44pm Supervision of high-risk [facility] 2024 3:44pm Hidradenitis suppurativa March 07, 2025 3:44pm Chief Complaint Admit Date March 04, 2025 4:26pm NOB LMP 12/29 LEIDY / *Per February 3:44pm 11wk6d ob *per SM March 22, 2025 2:43pm Reason for Visit Admit Date Advanced maternal age (AMA) in March 07, 2025 3:44pm Anxiety March 07, 2025 3:44pm Benign intracranial hypertension [facility] 2024 3:44pm Current in first t [facility] with history of placenta previa during March 07, 2025 3:44pm Hx of section March 07 3:44pm Hx of delivery, currently pregna nt March 07, 2025 3:44pm Obesity affecting February 3:44pm March 07, 2025 3:44pm Rh negative status during [facility] 2024 3:44pm Subchorionic hematoma March 07 3:44pm Supervision of high-risk [facility] 2024 3:44pm Hidradenitis suppurativa March 07, 2025 3:44pm Advanced maternal age (AMA) in March 22, 2025 2:43pm Anxiety March 22, 2025 2:43pm Benign intracranial hypertension [facility] 2024 2:43pm Current in first t [facility] with history of placenta previa during March 22, 2025 2:43pm Hx of section March 22, 025 2:43pm Hx of delivery, currently pregna nt March 22, 2025 2:43pm Obesity affecting March 222024 2:43pm March 22, 2025 2:43pm Rh negative status during [facility] 2024 2:43pm Subchorionic hematoma March 22 2:43pm Supervision of high-risk [facility] 2024 2:43pm Chief Complaint Admit Date March 04, 2025 4:26pm NOB LMP 7/3 LEIDY 4/9 *Per February 3:44pm 11wk6d ob *per SM March 22, 2025 2:43pm 14wk ob April 06, 2025 1: 02pm Reason for Visit Admit Date Advanced maternal age (AMA) in March 07, 2025 3:44pm Anxiety March 07, 2025 3:44pm Benign intracranial hypertension [facility] 2024 3:44pm [facility] with [facility] of placenta previa during March 07, 2025 3:44pm Hx of section March 07 3:44pm Hx of delivery, currently pregna nt March 07, 2025 3:44pm Obesity affecting February 3:44pm March 07, 2025 3:44pm Rh negative status during [facility] 2024 3:44pm Subchorionic hematoma March 07 3:44pm Supervision of high-risk [facility] 2024 3:44pm Hidradenitis suppurativa March 07, 2025 3:44pm Advanced maternal age (AMA) in March 22, 2025 2:43pm Anxiety March 22, 2025 2:43pm Benign intracranial hypertension [facility] 2024 2:43pm Current in first t rimester with history of placenta previa during March 22, 2025 2:43pm Hx of section March 22, 2:43pm Hx of delivery, currently pregna nt March 22, 2025 2:43pm Obesity affecting March 222024 2:43pm March 22, 2025 2:43pm Rh negative status during [facility] 2024 2:43pm Subchorionic hematoma March 22 2:43pm [facility] 2024 2:43pm Advanced maternal age (AMA) in [...] Supervision of high-risk [facility] 2024 1:02pm Chief Complaint Admit Date March 04, 2025 4:26pm NOB LMP 7/3 LEIDY 4/9 *Per SM February 3:44pm 11wk6d ob *per SM March 22, 2025 2:43pm 14wk ob April 06, 2025 1: 02pm 1wk BP Check *per April 13, 2025 3:01pm Hypertension, Headache April 15 6:47pm Reason for Visit Admit Date Advanced maternal age (AMA) in March 07, 2025 3:44pm Anxiety March 07, 2025 3:44pm Benign intracranial hypertension [facility] 2024 3:44pm Current in [facility] t [facility] with history of placenta previa during March 07, 2025 3:44pm Hx of section March 07 3:44pm Hx of delivery, currently pregna nt March 07, 2025 3:44pm Obesity affecting February 3:44pm March 07, 2025 3:44pm Rh negative status during Sept ember 2024 3:44pm Subchorionic hematoma March 07 3:44pm Supervision of high-risk [facility] 2024 3:44pm Hidradenitis suppurativa March 07, 2025 3:44pm Advanced maternal age (AMA) in March 22, 2025 2:43pm Anxiety March 22, 2025 2:43pm [facility] 2:[facility] with history of placenta previa during March 22, 2025 2:43pm Hx of section March 22 2:43pm Hx of delivery, currently pregna nt March 22, 2025 2:43pm Obesity affecting March 222024 2:43pm March 22, 2025 2:43pm Rh negative status during Sept ember 2024 2:43pm Subchorionic hematoma March 22 2:43pm Supervision of high-risk [facility] 2024 2:43pm Advanced maternal age (AMA) in April 06, 2025 1:02pm Anxiety April 06, 2025 1: 02pm Benign intracranial hypertension April 06, 2025 1:02pm Current in first t [facility] with history of placenta previa during April [...] Supervision of high-risk [facility] 2024 1:02pm Advanced maternal age (AMA) in April 13, 2025 3:01pm Anxiety April 13, 2025 3 :01pm Benign intracranial hypertension April 13, 2025 3:01pm Current in [facility] t [facility] with history of placenta previa during April 13, 2025 3:01pm Hx of section April 13 3:01pm Hx of delivery, currently pregna nt April 13, 2025 3:01pm Hypertension affecting April 13, 2025 3:01pm Obesity affecting March 3:01pm April 13, 2025 3 :01pm Rh negative status during [facility] 2024 3:01pm Subchorionic hematoma April 13, 2025 3:01pm Supervision of high-risk [facility] 2024 3:01pm Chief Complaint Admit Date March 04, 2025 4:26pm NOB LMP 7/3 LEIDY 4/9 *Per SM February 3:44pm 11wk6d ob *per SM March 22, 2025 2:43pm 14wk ob April 06, 2025 1: 02pm 1wk BP Check *per MH April 13, 2025 3:01pm Hypertension, Headache April 15 6:47pm 1 wk BP recheck per KW April 26 8:35am 18wk ob May 04, 2025 2 :19pm Reason for Visit Admit Date Advanced maternal age (AMA) in March 07, 2025 3:44pm Anxiety March 07, 2025 3:44pm Benign intracranial hypertension [facility] 2024 3:44pm Current in first t rimester with history of placenta previa during March 07, 2025 3:44pm Hx of section March 07 3:44pm Hx of delivery, currently pregna nt March 07, 2025 3:44pm Obesity affecting February 3:44pm March 07, 2025 3:44pm Rh negative status during Sept ember 2024 3:44pm Subchorionic hematoma March 07 3:44pm Supervision of high-risk [facility] 2024 3:44pm Hidradenitis suppurativa March 07, 2025 3:44pm Advanced maternal age (AMA) in March 22, 2025 2:43pm Anxiety March 22, 2025 2:43pm Benign intracranial hypertension [facility] 2024 2:43pm Current in first t rimester with history of placenta previa during March 22, 2025 2:43pm Hx of section March 22, 2:43pm Hx of delivery, currently pregna nt March 22, 2025 2:43pm Obesity affecting March 222024 2:43pm March 22, 2025 2:43pm Rh negative status during Sept ember 2024 2:43pm Subchorionic hematoma March 22 2:43pm Supervision of high-risk [facility] er 2024 2:43pm Advanced maternal age (AMA) in April 06, 2025 1:02pm Anxiety April 06, 2025 1: 02pm Benign intracranial hypertension April 06, 2025 1:02pm [facility] t [facility] with history of placenta previa during April 06, 2025 1:02pm Hx of section April 06, 2025 1:02pm Hx of delivery, currently pregna nt April 06, 2025 1:02pm Hypertension affecting April 06, 2025 1:02pm Obesity affecting April 06, 2025 1:02pm April 06, 2025 1: 02pm Rh negative status during [facility] 2024 1:02pm Subchorionic hematoma April 06, 2025 1:02pm Supervision of high-risk [facility] 2024 1:02pm Advanced maternal age (AMA) in April 13, 2025 3:01pm Anxiety April 13, 2025 3 :01pm Benign intracranial hypertension April 13, 2025 3:01pm Current in [facility] t [facility] with history of placenta previa during April 13, 2025 3:01pm Hx of section April 13 3:01pm Hx of delivery, currently pregna nt April 13, 2025 3:01pm Hypertension affecting April 13, 2025 3:01pm Obesity affecting March 3:01pm April 13, 2025 3 :01pm Rh negative status during [facility] 2024 3:01pm Subchorionic hematoma April 13, 2025 3:01pm Supervision of high-risk [facility] 2024 3:01pm Advanced maternal age (AMA) in April 26, 2025 8:35am Anxiety April 26, 2025 8 :35am Benign intracranial hypertension April 26, 2025 8:35am Current in first t rimester with history of placenta previa during April 26, 2025 8:35am Hx of section April 26 8:35am Hx of delivery, currently pregna nt April 26, 2025 8:35am Hypertension affecting April 26, 2025 8:35am Obesity affecting March 8:35am April 26, 2025 8 :35am Rh negative status during [facility] 2024 8:35am Subchorionic hematoma April 26, 2025 8:35am Supervision of high-risk [facility] 2024 8:35am Advanced maternal age (AMA) in May 04, 2025 2:19pm Anxiety May 04, 2025 2 :19pm Benign intracranial hypertension [facility] 2024 2:19pm Current in first t rimester with history of placenta previa during May 04, 2025 2:19pm Hx of section May 04 2:19pm Hx of delivery, currently pregna nt May 04, 2025 2:19pm Hypertension affecting [facility] 2024 2:19pm Obesity affecting April 2:19pm May 04, 2025 2 :19pm Rh negative status during [facility] 2024 2:19pm Subchorionic hematoma May 04, 2025 2:19pm Supervision of high-risk Novem 2024 2:19pm Additional Source Comments INFORMATION SOURCE (unrecogn ized section and content) DATE CREATED AUTHOR 12/22/[address] [facility] ([place]) DATE CREATED AUTHOR AUTHOR'S ORGANIZ ATION 06/06/2021 [facility] DATE CREATED AUTHOR AUTHOR'S ORGANIZ ATION 08/05/2021 [facility] DATE CREATED AUTHOR AUTHOR'S ORGANIZ ATION 03/31/2022 [facility] DATE CREATED AUTHOR AUTHOR'S ORGANIZ ATION 05/02/2024 [facility] [employer] [facility] DATE CREATED AUTHOR AUTHOR'S ORGANIZ ATION 05/06/2025 [facility] DATE CREATED AUTHOR AUTHOR'S ORGANIZ ATION 05/06/2025 [facility] Reason for Visit (unrecogniz ed section and content) Reason Comments Shoulder Injury Right Status Reason Specialty Diagnoses / Procedures Referre d By Contact Referred To Contact Closed Radiology Diagnoses Instability of right shoulder joint Procedures XR SHOULDER ARTHROGRAM RIGHT S&I Pinky Romero MD [address] [facility] [address] [place] [address] Reason Comments Mouth Lesions Reason Onset Date [...] spine wo contrast Wilfredo Fischer F, DO [address] [place] [address] Referral ID Status Reason Start Date Expiration Date V isits Requested Visits Authorized [id number] Authorized 11/18/2022 05/17/2023 1 1 Reason Comments Numbness In left arm all the time, and on and off in right arm since July, feet have been swelling Reason Comments Med Refill Reason Comments Back Pain Reason Comments 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 Specialty Diagnoses / Procedures Referred By Contac t Referred To Contact Orthopedic Surgery Diagnoses Acute low back pain with sciatica, sciatica laterality unspecified, unspecified back pain laterality Gissel Hernandez, PA-C [address] [place] [address] Phone: tel: fax: [facility] [address] [place] [address] [address] Phone: tel: fax: Referral ID Status Reason Start Date Expiration Date V isits Requested Visits Authorized [id number] Closed Specialty Services Required 04/16/2024 04/16/2025 1 1 Reason Comments New Patient Hip Pain Left Specialty Diagnoses / Procedures Referred By Contac t Referred To Contact Sports Medicine Diagnoses Left hip pain Procedures CT OFFICE/OUTPATIENT NEW HIGH MDM 60 MINUTES Jason Castro APRN - [place] [address] [facility] [address] [place] [address] Phone: tel: fax: [facility] [place] [address] Phone: tel: fax: Referral ID Status Reason Start Date Expiration Date Visits Requested Visits Authorized [id number] Pending Review Specialty Services Required 4 04/22/2025 1 1 Reason Comments discuss getting [...] Care Teams (unrecognized sec tion and content) Plate Setter Relationship Specialty Start Date End Date Wilfredo Fischer DO [address] [place] [address] PCP - General Family Medicine 03/21/22 Plate Setter Relationship Specialty Start Date End Date Wilfredo Fischer DO [address] [place], [place] [id number] PCP - General 03/21/22 Plate Setter Relationship Specialty Start Date End Date Wilfredo Fischer DO [address] [place], [place] [id number] PCP - General 03/21/22 Plate Setter Relationship Specialty Start Date End Date Wilfredo Fischer DO [address] [place], [place] [id number] PCP - General 03/21/22 Plate Setter Relationship Specialty Start Date End Date KevlorenaWilfredo DO [address] [place] [address] PCP - General 03/21/22 Plate Setter Relationship Specialty Start Date End Date Wilfredo Fischer DO [address] [place] [address] PCP - General 03/21/22 Plate Setter Relationship Specialty Start Date End Date Kevlorena Wilfredo Viera DO [address] [place] [address] PCP - General 03/21/22 Team Status: Active Member Role Status Dates Dr. iMlton Dias MD Family Provider Active Dr. Wilfredo Fischer DO Primary Care Provider Active Team Status: Inactive Member Role Status Dates Dr. Wilfredo Fischer DO Primary Care Provider, Referr ing Provider Active Dr. Herberth Steele MD Attending Provider Active Team Status: Inactive Member Role Status Dates Dr. Wilfredo Fischer DO Primary Care Provider Active Dr. Herberth Steele MD Attending Provider, Referring Provider Active Plate Setter Relationship Specialty Start Date End Date KevWilfredo carrillo DO Maximiliano [address] [place] [address] [address] [place] [address] PCP - General 03/21/22 Plate Setter Relationship Specialty Start Date End Date KevWilfredo carrillo DO [address] [place] [address] PCP - General 03/21/22 Plate Setter Relationship Specialty Start Date End Date KevWilfredo carrillo DO [address] [place] [address] PCP - General 03/21/22 Plate Setter Relationship Specialty Start Date End Date Wilfredo Fischer, DO [address] [place] [address] PCP - General 03/21/22 Plate Setter Relationship Specialty Start Date End Date Wilfredo Fischer, DO [address] [place] [place] [address] PCP - General 03/21/22 Plate Setter Relationship Specialty Start Date End Date Wilfredo Fischer, DO [address] [place] [place] [address] PCP - General 03/21/22 Team Status: Active [...] End: April 06, 2025 Tiarra Ibrahim NP, DARREN-C Attending physician Active Start: April 06, 2025 End: April 06, 2025 Team Status: Inactive Member Role/Relationship Status Dates No Primary Care Physician Primary care physician Activ e Start: March 22, 2025 End: March 22, 2025 Dr. Comfort Agee MD Attending physician Active Start: March 22, 2025 End: March 22, 2025 Dr. Comfort Agee MD Referring Provider Active Start: March 22, 2025 End: March 22, 2025 Team Status: Inactive Member Role/Relationship Status Dates No Primary Care Physician Primary care physician Activ e Start: April 13, 2025 End: April 13, 2025 No Primary Care Physician Referring Provider Active Start: April 13, 2025 End: April 13, 2025 Chaya Alejandro CNM Attending physician Active Start: April 13, 2025 End: April 13, 2025 Team Status: Inactive Member Role/Relationship Status Dates No Primary Care Physician Primary care physician Activ e Start: April 15, 2025 End: April 15, 2025 Erick Gibson MD Attending physician Active Sta rt: April 15, 2025 End: April 15, 2025 Erick Gibson MD Emergency Department Physician Active Start: April 15, 2025 End: April 15, 2025 Team Status: Inactive Member Role/Relationship Status Dates No Primary Care Physician Primary care physician Activ e Start: April 26, 2025 End: April 26, 2025 No Primary Care Physician Referring Provider Active Start: April 26, 2025 End: April 26, 2025 Tiarra Ibrahim NP, [employer] Attending physician Active Start: April 26, 2025 End: April 26, 2025 Team Status: Inactive Member Role/Relationship Status Dates No Primary Care Physician Primary care physician Activ e Start: April 26, 2025 End: April 26, 2025 Tiarra Ibrahim NP [employer] Attending physician Active Start: April 26, 2025 End: April 26, 2025 Team Status: Inactive Member Role/Relationship Status Dates No Primary Care Physician Primary care physician Activ e Start: May 04, 2025 End: May 04, 2025 No Primary Care Physician Referring Provider Active Start: May 04, 2025 End: May 04, 2025 Dr. Mignon Washington DO Attending physician Kristy morin Start: May 04, 2025 End: May 04, 2025 Goals (unrecognized section and content) Type [...] dose 1809 (Given - Provid er: Laura Mack, ALEA) FOR RECORDS PERTAINING TO PATIENTS WHO ARE [...] BE BASED ON THE PRIMARY CLINICAL RECORDS. [facility]. provides no warranty or guarantee of the accuracy or completeness of information in this document.
[2025-05-15 21:28] LABS: Hematocrit 34.8 % (37-47); Hemoglobin 12.3 g/dL (12.0-15.0); Immature Granulocytes Count 0.030 X10^3/uL (0.0-0.0); Mean Corp Hgb Conc 35.3 g/dL (32-36); Mean Corpuscular Volume 90.4 fL (81-99); Mean Platelet Vol. 10.2 fl (6.2-12.0); NRBC Flagged by Analyzer 0 % (0-5); Platelet Count 268 K/mm3 (150-450); RBC Distribution Width CV 12.0 % (11.6-14.6); RBC Distribution Width SD 39.6 fl (35.1-43.9); Red Blood Count 3.85 M/mm3 (4.2-5.4); White Blood Count 9.3 K/mm3 (4.4-11.0)
--- NOTE | 2025-05-15 21:31 | CT_ITS ---
PROCEDURE: CT BRAIN/HEAD WITHOUT CONTRAST 05/15/2025 REASON FOR EXAM: HEADACHE TECHNIQUE: Procedure Code: CTBR Modality: CT Procedure: BRAIN/HEAD WITHOUT CONTRAST Coronal and Sagittal reconstruction series were provided. One or more dose reduction techniques were used (e.g., Automated exposure control, adjustment of the mA and/or kV according to patient size, use of iterative reconstruction technique. RADIATION DOSE SUMMARY: CTDlvol: 44.99 mGy DLP: 829.85 mGycm COMPARISON: Brain MRI 03/27/2023 FINDINGS: No acute intracranial hemorrhage, extra-axial collection, mass effect or evidence of acute infarct. Ventricles and subarachnoid spaces are normal in size. Orbital contents are unremarkable. Intact skull base and calvarium. Mild mucosal thickening in the right sphenoid sinus. CT/Brain/Head without Contrast IMPRESSION: Unremarkable head CT. Reading Location: [id number]
[2025-05-15 21:48] LABS: AST(SGOT) 27 U/L (<=31); Alanine Aminotransfer ALT/SGPT 24 U/L (<=34); Albumin, Serum 3.6 g/dL (3.5-5.0); Alkaline Phosphatase 45 U/L (35-104); Anion Gap 11 (5-15); BUN 17 mg/dL (4-19); BUN/Creat Ratio 25.6 RATIO (10-20); Bilirubin, Direct 0.10 mg/dL (0.00-0.30); Calcium,Total 9.2 mg/dL (7.6-11.0); Carbon Dioxide 21.2 mmol/L (21.0-32.0); Chloride 103 mmol/L (98-108); Estimated Creatinine Clearance 174.43 ml/min (50-250); Globulin 2.8 g/dL (2.2-4.2); Glucose 91 mg/dL (70-99); LDH 152 U/L (84-246); Potassium 3.6 mmol/L (3.3-5.1)
[2025-05-15 22:01] LABS: Mucous, Urine 0 SEEN /hpf (<or=2+); Red Blood Cells-Urine 0 SEEN /hpf (0-5); Squamous Epithelial Cells - UA 0 SEEN /hpf (5-10)
[2025-05-15 22:11] LABS: Glucose, Dipstick Normal (Normal); Ketone-Dipstick Negative (Negative); Leukocyte Esterase-Dipstick Negative /ul (Negative); Nitrite-Dipstick Negative (Negative); Occult Blood-Urine Negative /ul (Negative); Protein-Dipstick 15 mg/dl (Negative); Specific Gravity, Urine 1.015 (1.002-1.030); Urine Bilirubin Dipstick Negative (Negative)
[2025-05-15 22:17] LABS: Color, Urine Straw (Yellow)
[2025-05-15 23:16] VITALS: BP 141/86; PULSE 100; RESP 20; TEMP 36.6; O2SAT 100
--- NOTE | 2025-05-16 00:07 | EDS_ITS ---
HPI History of Present Illness Chief Complaint: Hypertension Informant: patient Narrative Narrative: 34-year-old female presenting to the emergency room with the chief complaint of hypertension. Patient states she is about 19 weeks with her third . She states that she has developed hypertension this was originally placed on labetalol but due to her history of asthma was switched to nifedipine. She she is currently taking 90 mg once a day blood pressure has been in around 150/90 range. She notes no significant swelling of her legs. She states her blood work has been normal. She also notes a history of benign intracranial hypertension and sees neurology. At 1 point she was on acetazolamide. She notes headache. She denies any neurologic deficits. Headache not positional. No red flag symptomology other than headache. [facility] Medical History Polyneuropathy Hidradenitis suppurativa Asthma Headache Obesity Vertigo Peripheral vestibulopathy Fatigue delivery delivered Home Medications Medication Instructions Recorded Last Taken Type multivitamin no.47-iron fum 27 cap PO 03/07/25 Unknown History mg-folate no.1 1 mg-dha 300 mg capsule (PNV-DHA) nifedipine 90 mg tablet,extended 90 mg PO QDAY #30 tab s 05/12/25 Unknown Rx release labetalol 200 mg tablet 200 mg PO TID 05/15/25 Unkno wn History nifedipine 60 mg tablet,extended 60 mg PO BID #28 tabs 05/15/25 Unknown Rx release Allergy/AdvReac Type Severity Reaction Status Date / Time minocycline AdvReac Severe Hives Verified 05/15/25 19:56 Family History Maternal Grandfather Diabetes Heart disease Pancreatic cancer, Onset Age: 70 mets to eye Father Heart disease COPD (chronic obstructive pulmonary disease) Emphysema lung Hypertension Mother Heart disease cardiomegaly-mild COPD (chronic obstructive pulmonary disease) Thyroid disorder hypothyroid Hypertension Cancer, Onset Age: 45 skin cancer Grandmother Emphysema lung paternal Maternal Grandmother Multiple sclerosis Cancer, Onset Age: 65 lung cancer Uncle Cancer, Onset Age: 60 Maternal- Lung cancer COPD (chronic obstructive pulmonary disease) Maternal Grandfather Cancer Prostate cancer Surgical History History of third molar tooth extraction Hx of section Status post labral repair of shoulder Social History adopted: No household members: significant other, children and other details: custody of nephew 13yo housing: house number of children: 2 current occupational status: employed current occupation: [employer] current occupational exposures/hazards: No pets and animals: Yes (4 dogs, 2 Cats Avoid litterbox) pets and animals: cat(s) and dog(s) history of recent travel: No sexually active: Yes Smoking Status: Unknown if ever smoked Tobacco: How many years used: 15 quit status: quit date established alcohol intake: current alcohol intake frequency: a few times a month details: not while substance use type: does not use well-balanced diet: about half the time caffeine: Yes Type: coffee Number of servings: 1 eating out: 1-3 times/week during the past year weight has: remained stable what type of physical activity do you participate in: none tamir/hoahaoism: None seatbelt use: always do you feel safe at home: Yes additional social history: [employer] work ROS ROS ED Constitutional Constitutional ED: Denies chills, fever(s) or weight loss Eyes Eyes: Denies blurry vision, change in vision or diplopia ENT ENT ED: Denies ear pain, rhinorrhea or sore throat Cardiovascular Cardiovascular: Denies chest pain, orthopnea, palpitations or racing heartbeat Respiratory/Chest Respiratory/Chest: Denies cough, dyspnea or orthopnea Gastrointestinal Gastrointestinal: Denies abdominal pain, diarrhea, nausea or vomiting Genitourinary Genitourinary ED: Denies dysuria, hematuria or urinary frequency Musculoskeletal Musculoskeletal: Denies arthralgias, myalgias or neck pain Integumentary Denies abscess or rash Neurologic Neurologic: Denies headache(s), paresthesias or weakness Psychiatric Psychiatric: Denies anxiety, depression, suicidal ideation or suicidal thoughts Endocrine Endocrinology: Denies polydipsia, polyphagia or polyuria Allergic/Immunologic Allergic/Immunologic ED: Denies mouth swelling, tongue swelling or urticaria EXAM Physical Exam Const Vital Signs: 05/15/25 19:56 05/15/25 20:11 05/15/25 20:27 Temperature 97.4 F L Temperature Source Temporal Pulse Rate 102 H 81 Respiratory Rate 24 H 16 Respiratory Effort Normal Non-Labored Respiratory Pattern Normal Blood Pressure 147/95 H 148/83 H Blood Pressure Mean 112 104 Pulse Ox 97 100 Oxygen Delivery Method Room Air 05/15/25 21:14 05/15/25 23:16 Temperature 97.8 F Temperature Source Pulse Rate 92 100 Respiratory Rate 18 20 H Respiratory Effort Respiratory Pattern Blood Pressure 145/79 H 141/86 H Blood Pressure Mean 101 104 Pulse Ox 100 100 Oxygen Delivery Method Room Air Positive well nourished and well developed General Appearance ED: well developed HEENT Reports normocephalic, head/scalp atraumatic and moist mucous membranes Eyes PERRL and EOMs intact bilaterally Neck no lymphadenopathy, supple and no JVD Resp normal respiratory effort and clear to auscultation bilaterally Cardio regular rate, regular rhythm and no murmurs GI normal to inspection, nondistended, normoactive bowel sounds and non-tender Palpation: soft Back/Spine no CVA tenderness and normal ROM Extremity normal to inspection General Extremety ED: Negative for edema General Extremity: Negative for edema Neuro oriented x3 and CN's II-XII intact bilaterally Sensorium / Orientation: alert Motor Exam: strength 5/5 throughout Psych mental status grossly normal Mood & Affect: Negative for depressed or tearful Skin no rashes or lesions noted and no wounds MDM MDM MDM Narrative Medical decision making narrative: Differential diagnosis includes preeclampsia eclampsia hypertension liver dysfunction thrombocytopenia proteinuria kidney disease liver disease hypertension intracranial hypertension intracranial venous thrombosis malignancy stroke Patient was placed on the monitor observed. Basic blood work was obtained including LDH and liver enzymes which are normal. Urinalysis with [address] of the brain appears unchanged from prior per radiology read. I spoke with the patient and as well as obstetrics. Recommendation from obstetrics is to go to nifedipine 60 mg twice a day and they will work to get her in soon as possible with M. Patient is comfortable with that plan. At this point I do not see a strong need to go emergently for an MRV. History & Record Review Discussion w/independent historian: Patient Additional record(s) reviewed:: Prior outpatient record, Prior ED visit and Prior labs Lab Data Attestation: I reviewed the patient's lab results. Labs: Laboratory Results - last 24 hr 05/15/25 05/15/25 21:12 21:52 WBC 9.3 RBC 3.85 L Hgb 12.3 Hct 34.8 L MCV 90.4 MCH 31.9 MCHC 35.3 RDW Std Deviation 39.6 RDW Coeff of Lesli 12.0 Plt Count 268 MPV 10.2 Immature Gran % (Auto) 0.300 Neut % (Auto) 56.6 Lymph % (Auto) 33.5 [place] % (Auto) 5.9 Eos % (Auto) 3.3 Baso % (Auto) 0.4 Absolute Neuts (auto) 5.3 Absolute Lymphs (auto) 3.11 Nucleated RBC % 0 Sodium 136 Potassium 3.6 Chloride 103 Carbon Dioxide 21.2 Anion Gap 11 BUN 17 Creatinine 0.67 L Estim Creat Clear Calc 174.43 Est GFR (MDRD) Non-Af 117 BUN/Creatinine Ratio 25.6 H Glucose 91 Calcium 9.2 Total Bilirubin 0.22 Direct Bilirubin 0.10 AST 27 ALT 24 Alkaline Phosphatase 45 Lactate Dehydrogenase 152 Total Protein 6.4 Albumin 3.6 Globulin 2.8 Urine Color Straw Urine Clarity Clear Urine pH 6.0 Ur Specific [place] 1.015 Urine Protein 15 H Urine Glucose (UA) Normal Urine Ketones Negative Urine Occult Blood Negative Urine Nitrite Negative Urine Bilirubin Negative Urine Urobilinogen Normal Ur Leukocyte Esterase Negative Urine RBC 0 SEEN Urine WBC 0-5 SEEN Ur Squamous Epith Cells 0 SEEN Urine Bacteria 0 SEEN Urine Mucus 0 SEEN Radiography Diagnostic Testing: Clinical Impression(s) from Imaging Studies Brain CT 05/15/25 21:31 IMPRESSION: Unremarkable head CT. Reading Location: [facility] Discharge Plan Triage Chief Complaint: Hypertension ED Provider: [place] Dx/Rx/DC Orders Clinical Impression: Hypertension, Second trimester Instructions: : Weeks 18 to 22, ED High Blood Pressure Hypertension Prescriptions: New nifedipine 60 mg tablet extended release 60 mg PO BID Qty: 28 0RF No Action PNV-DHA 27 mg iron-1 mg -300 mg capsule PO labetalol 200 mg tablet 200 mg PO TID nifedipine 90 mg tablet extended release 90 mg PO QDAY Qty: 30 4RF Primary Care Provider: Care Physician,No Primary Referrals: Care Physician,No Primary [Primary Care Provider, Medical] Activity Restrictions/Additional Instructions: As we discussed obstetrics will be working to get you into see maternal- medicine soon as possible In the interim please take your Procardia 60 mg twice daily. Print Language: Persian Disposition Disposition: Home, Self Care Discharge Date/Time: 05/15/25 23:21
== END 2025-05-15 23:21 | disposition home or self-care (01) ==
PROVIDERS: Emergency Provider Emergency Medicine; Visit Provider Emergency Medicine
DX: O13.2 Gestational [pregnancy-induced] hypertension without significant proteinuria, second trimester (principal); O99.352 Diseases of the nervous system complicating pregnancy, second trimester; G93.2 Benign intracranial hypertension; O99.512 Diseases of the respiratory system complicating pregnancy, second trimester; J45.909 Unspecified asthma, uncomplicated; Z3A.19 19 weeks gestation of pregnancy; Z79.899 Other long term (current) drug therapy
CPT/HCPCS: 70450; 80048; 80076; 81001; 83615; 85025; 99284; A4216

== ENCOUNTER → 2025-06-26 | Outpatient (CLI) | payer MEDICAID, SELFPAY ==
[2025-06-26 12:25] LABS: Hematocrit 35.9 % (37-47); Hemoglobin 12.4 g/dL (12.0-15.0); Immature Granulocytes Count 0.040 X10^3/uL (0.0-0.0); Mean Corp Hgb Conc 34.5 g/dL (32-36); Mean Corpuscular Volume 93.0 fL (81-99); Mean Platelet Vol. 10.0 fl (6.2-12.0); NRBC Flagged by Analyzer 0 % (0-5); Platelet Count 338 K/mm3 (150-450); RBC Distribution Width CV 12.9 % (11.6-14.6); RBC Distribution Width SD 43.7 fl (35.1-43.9); Red Blood Count 3.86 M/mm3 (4.2-5.4); White Blood Count 10.5 K/mm3 (4.4-11.0)
[2025-06-26 13:01] LABS: AST(SGOT) 21 U/L (<=31); Alanine Aminotransfer ALT/SGPT 16 U/L (<=34); Albumin, Serum 3.4 g/dL (3.5-5.0); Alkaline Phosphatase 58 U/L (35-104); Anion Gap 12 (7-18); BUN 6 mg/dL (4-19); BUN/Creat Ratio 9.5 RATIO (10-20); Calcium,Total 8.9 mg/dL (7.6-11.0); Carbon Dioxide 19.1 mmol/L (20.0-29.0); Chloride 104 mmol/L (96-106); Globulin 2.7 g/dL (2.2-4.2); Glucose 114 mg/dL (70-99); Potassium 3.6 mmol/L (3.5-5.1)
[2025-06-26 13:21] LABS: Glucose Challenge Gest 1H 50g 114 mg/dL (70-140); HIV Nonreactive (Nonreactive); Syphilis Antibodies Nonreactive (Nonreactive)
== END | disposition home or self-care (01) ==
PROVIDERS: Student in an Organized Health Care Education/Training Program; Visit Provider Obstetrics & Gynecology
DX: O09.92 Supervision of high risk pregnancy, unspecified, second trimester (principal); O16.2 Unspecified maternal hypertension, second trimester; Z13.1 Encounter for screening for diabetes mellitus; Z3A.00 Weeks of gestation of pregnancy not specified
CPT/HCPCS: 36415; 80053; 82950; 85025; 86703; 86780

== ENCOUNTER → 2025-06-28 | Outpatient (CLI) | payer MEDICAID, SELFPAY ==
--- NOTE | 2025-06-28 07:56 | ECHOD_ITS ---
Reason For Study Reason For Study: DYSPNEA ON EXERTION Procedure This was a 2D Doppler, Color Flow transthoracic echocardiogram. Exam performed in department. Left Ventricle Normal-sized left ventricle. Normal left ventricular wall thickness. Left ventricular EF by Mckeon's biplane: 64%. Normal left ventricular diastolic function. No regional wall motion abnormalities noted. Right Ventricle Normal right ventricle. Normal systolic function. Unable to estimate RV systolic pressure due to insufficient tricuspid regurgitant envelope. Atria The left and right atria are normal. Estimated RA pressure: 3 mmHg. Mitral Valve Normal mitral valve. No mitral regurgitation. No mitral stenosis. Tricuspid Valve Normal tricuspid valve. No tricuspid regurgitation. No tricuspid stenosis. Aortic Valve Trileaflet aortic valve. No aortic regurgitation. No hemodynamically significant aortic stenosis. Pulmonic Valve Normal pulmonic valve. Trace pulmonic regurgitation. No pulmonic stenosis. Great Vessels Normal aortic root. Ascending aorta not well-visualized. Pericardium/Pleural No pericardial effusion. MMode/2D Measurements & Calculations LVIDd: 5.6 cm IVSd: 0.74 cm LAV(MOD- bp): 39.3 ml LVIDs: 3.6 cm LVPWd: 0.99 cm LAV(MOD- bp) Indexed: 15.9 ml/m2 RVDd: 3.6 cm FS: 35.7 % LAV(MOD- sp2): 40.0 ml LAV(MOD- sp4): 35.9 ml LVAd ap4: 31.1 cm2 LVAd ap2: 32.4 cm2 EDV(MOD- bp): 105.1 ml LVLd ap4: 7.9 cm LVLd ap2: 8.1 cm ESV(MOD- bp): 39.3 ml EDV(MOD-sp4): 99.6 ml EDV(MOD-sp2): 108.9 ml EF(MOD- bp): 62.6 % EDV(sp4-el): 103.4 ml EDV(sp2-el): 109.8 ml LVAs ap4: 17.0 cm2 LVAs ap2: 17.2 cm2 LVLs ap4: 6.5 cm LVLs ap2: 6.4 cm ESV(MOD-sp4): 39.7 ml ESV(MOD-sp2): 39.1 ml ESV(sp4-el): 38.1 ml ESV(sp2-el): 39.1 ml EF(MOD-sp4): 60.1 % EF(MOD-sp2): 64.1 % EF(sp4-el): 63.2 % SV(MOD-sp4): 59.9 ml SV(MOD-sp2): 69.8 ml SV(sp4- el): 65.3 ml SI(MOD-sp4): 24.3 ml/m2 SI(MOD-sp2): 28.3 ml/m2 LA dimension(2D): 3.5 cm LA A4 area: 14.9 cm2 RA A4 area: 11.6 cm2 TAPSE: 2.1 cm Time Measurements MV dec time: 0.16 sec Doppler Measurements & Calculations MV E max javid: 68.1 cm/sec Lat Peak E' Javid: 16.1 cm/sec Med Peak E' Javid: 12.9 cm/sec MV A max javid: 63.0 cm/sec E/E' lat: 4.2 E/E' med: 5.3 MV E/A: 1.1 MV dec slope: 437.3 cm/sec2 Ao V2 max: 133.9 cm/sec LV V1 max: 97.6 cm/sec Ao max P.2 mmHg LV V1 max P.8 mmHg Ao V2 mean: 97.7 cm/sec LV V1 mean P.7 mmHg Ao mean P.3 mmHg LV V1 mean: 61.5 cm/sec Ao V2 VTI: 26.0 cm LV V1 VTI: 13.3 cm AV (velocity ratio): 0.51 PA V2 max: 117.2 cm/sec ECHO/Echo Complete Interpretation Summary Normal left ventricular systolic function with EF: 64% by Mckeon's biplane Normal left ventricular diastolic function Normal right ventricular systolic function with No hemodynamically significant valvular disease Ordering Physician: Trev Pierre Referring Physician: No primary physician Performed By: Marleny Nuñez RDCS
== END | disposition home or self-care (01) ==
LOC: CVS 07:56
PROVIDERS: Referring Provider Student in an Organized Health Care Education/Training Program; Visit Provider Student in an Organized Health Care Education/Training Program
DX: R06.02 Shortness of breath (principal)
CPT/HCPCS: 93306